=== PATIENT | female | born 1950 | race Caucasian/White ===

== ENCOUNTER 2023-03-03 09:57 | Outpatient (OUT) | payer MEDICARE, SELFPAY ==
[2023-03-03 11:14] LABS: Basophils Percent Auto 0.3 % (0.2-2.0); Eosinophils Absolute Auto 0.1 10^3/uL (0.0-0.7); Eosinophils Percent Auto 1.2 % (0.9-7.0); Hematocrit 35.1 % (36.0-48.0); Hemoglobin 10.9 g/dL (12.0-16.0); Immature Granulocytes Abs Auto 0.04 10^3/uL (0.00-0.03); Immature Granulocytes Pct Auto 0.5 % (0.0-0.5); Lymphocytes Absolute Auto 1.9 10^3/uL (1.2-3.8); Lymphocytes Percent Auto 24.9 % (20.5-60.0); Mean Corpuscular HGB Conc 31.1 g/dL (29.9-35.2); Mean Corpuscular Hemoglobin 27.8 pg (26.7-34.0); Mean Corpuscular Volume 89.5 fL (81.0-99.0); Mean Platelet Volume 11.4 fL (9.5-13.5); Monocytes Absolute Auto 0.5 10^3/uL (0.3-0.8); Monocytes Percent Auto 6.5 % (1.7-12.0); Neutrophils Absolute Auto 5.1 10^3/uL (1.4-6.5); Neutrophils Percent Auto 66.6 % (43.0-75.0); Platelet Count 178 10^3/uL (150-450); Red Blood Count 3.92 10^6/uL (4.20-5.40); Red Cell Distribution Width 14.8 % (11.0-15.0); White Blood Count 7.7 10^3/uL (4.0-11.0)
[2023-03-03 12:05] LABS: Alanine Aminotransferase 24 U/L (14-59); Albumin Globulin Ratio 0.9; Albumin Level 3.5 g/dL (3.4-5.0); Alkaline Phosphatase 76 U/L (46-116); Anion Gap 14.3; Aspartate Amino Transferase 22 U/L (15-37); BUN Creatinine Ratio 35.2; Bilirubin Total 0.2 mg/dL (0.2-1.0); Calcium 9.7 mg/dL (8.5-10.1); Carbon Dioxide 26.4 mmol/L (21.0-32.0); Chloride 107 mmol/L (98-107); Chol HDL Ratio 3.3; Cholesterol 97 mg/dL (<=200); Estimated GFR (African America >60 (>=60); Estimated GFR (Non-African Ame >60 (>=60); Globulin 4.1 g/dL; Glucose 118 mg/dL (74-106); HDL Cholesterol 29 mg/dL (40-60); Magnesium 1.9 mg/dL (1.8-2.4); Potassium 3.7 mmol/L (3.5-5.1); Sodium 144 mmol/L (136-145); Thyroid Stimulating Hormone 0.867 uIU/mL (0.358-3.740); Total Protein 7.6 g/dL (6.4-8.2); Triglycerides 133 mg/dL (<=150); VLDL CHOLESTEROL 26.6 mg/dL
--- NOTE | 2023-03-03 15:26 | ECG_ITS ---
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
== END 2023-03-03 09:58 | disposition home or self-care (01) ==
LOC: CARD 10:06
PROVIDERS: PCP Family Medicine
DX: R94.31 Abnormal electrocardiogram [ECG] [EKG] (principal); I48.91 Unspecified atrial fibrillation; I10 Essential (primary) hypertension; D64.9 Anemia, unspecified; R07.9 Chest pain, unspecified
CPT/HCPCS: 36415; 80053; 80061; 83735; 84443; 85025; 93005

== ENCOUNTER 2023-06-01 15:15 | Observation (INO) | payer MEDICARE, SELFPAY ==
[2023-06-01] VITALS (24 sets, daily range): BP systolic 118–146; BP diastolic 71–83; PULSE 90–118; RESP 17–39; TEMP 36.8; O2SAT 93–99; BMI 43.0; BMI 42.9
--- NOTE | 2023-06-01 15:35 | XR_ITS ---
The [address] [address] Patient Name: PATRICIA RONELAS MRN: [id number] date: 1950 Sex: F Assigned Patient Location: ER Current Patient Location: ED.MAIN Accession/Order Number: [id number] Exam Date: 06/01/2023 15:48 Report Date: 06/01/2023 16:22 At the request of: MACARIO ROJAS Procedure: XR chest 1V EXAM: XR chest 1V TECHNIQUE: Single AP view chest HISTORY: SOB COMPARISON: 09/05/2022 FINDINGS: The heart is enlarged. Diffuse bilateral increased interstitial markings suggesting edema. No acute osseous abnormality. Evaluation limited by patient rotation. XR/XR chest 1V IMPRESSION: Diffuse increased interstitial markings suggesting likely edema. Atypical infectious process is possible. Electronically authenticated by: VERONA GILMORE Date: 06/01/2023 16:22
--- NOTE | 2023-06-01 15:35 | ECG_ITS ---
The 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
--- NOTE | 2023-06-01 15:37 | ED_ITS ---
HPI - SOB/Dyspnea General Chief Complaint: Shortness of Breath/Dyspnea Stated Complaint: SOB Time Seen by Provider: 06/01/23 15:21 Source: patient Mode of arrival: ambulance Limitations: no limitations History of Present Illness HPI Narrative: 73-year-old female presents for shortness breath. She states it started early this morning. She hasn't had a fever or productive cough. Paramedics gave her an aerosol treatment and she felt a lot better. No vomiting or diarrhea and she doesn't complain to me of any chest pain or back pain. Symptom was continuous but now it's much better. Related Data Home Medications Medication Instructions Recorded Confirmed albuterol sulfate 90 mcg/actuation inhalation 06/01/23 aerosol inhaler allopurinol 100 mg tablet mg 06/01/23 amiodarone 200 mg tablet mg 06/01/23 apixaban 5 mg tablet (Eliquis) mg 06/01/23 atorvastatin 10 mg tablet mg 06/01/23 bupropion HCl 150 mg tablet,12 hr mg PO 06/01/23 sustained-release diltiazem HCl 120 mg mg PO 06/01/23 capsule,extended release 24 hr furosemide 20 mg tablet mg 06/01/23 gemfibrozil 600 mg tablet mg 06/01/23 isosorbide mononitrate 30 mg mg PO 06/01/23 tablet,extended release 24 hr levothyroxine 75 mcg tablet mcg 06/01/23 metformin 1,000 mg tablet mg 06/01/23 metoprolol tartrate 50 mg tablet mg 06/01/23 Allergies Allergy/AdvReac Type Severity Reaction Status Date / Time Penicillins Allergy Intermediate Verified 06/01/23 15:21 Sulfa (Sulfonamide AdvReac Intermediate Verified 06/01/23 15:21 Antibiotics) Review of Systems ROS Narrative A ten point review of systems is negative except as noted above. PFSH PFSH Social History Smoking status: Never smoker Exam Narrative Exam Narrative: Nurses note and vital signs reviewed and patient is not hypoxic. General: The patient appears well and in no apparent distress. Patient is resting comfortably on cart. Skin: Warm, dry, no pallor noted. There is no rash noted. Head: Normocephalic, atraumatic Eye: Normal conjunctiva, no drainage Ears, Nose, Mouth, and Throat: oral mucosa is moist. Nares patent. Cardiovascular: irregularly irregular Respiratory: she is moving air well. She has a few rhonchi. No rales detected. Back: non-tender GI: no tenderness to palpation, no masses appreciated. No rebound, guarding, or rigidity noted. Musculoskeletal: The patient has no evidence of calf tenderness, no pitting edema, symmetrical pulses noted bilaterally Neurological: A&O, normal speech Psychiatric: Cooperative Constitutional Vital Signs, click to edit/add: Last Vital Signs Temp 98.2 F 06/01/23 15:22 Pulse 100 H 06/01/23 15:33 Resp 26 H 06/01/23 15:22 BP 146/71 H 06/01/23 15:22 Pulse Ox 96 06/01/23 15:33 O2 Del Method Nasal Cannula 06/01/23 15:22 O2 Flow Rate 2 06/01/23 15:22 Course Vital Signs Vital signs: Vital Signs Temperature 98.2 F 06/01/23 15:22 Pulse Rate 97 H 06/01/23 15:22 Respiratory Rate 26 H 06/01/23 15:22 Blood Pressure 146/71 H 06/01/23 15:22 Pulse Oximetry 96 06/01/23 15:22 Oxygen Delivery Method Nasal Cannula 06/01/23 15:22 Oxygen Delivery Flow Rate 2 06/01/23 15:22 Temperature 98.2 F 06/01/23 15:22 Pulse Rate 100 H 06/01/23 15:33 Respiratory Rate 26 H 06/01/23 15:22 Blood Pressure 146/71 H 06/01/23 15:22 Pulse Oximetry 96 06/01/23 15:33 Oxygen Delivery Method Nasal Cannula 06/01/23 15:22 Oxygen Delivery Flow Rate 2 06/01/23 15:22 MDM - SOB/Dyspnea MDM Narrative Medical decision making narrative: . Edema is identified. She also has an elevated BNP. Troponin normal. She was given IV Lasix and is feeling improved. She is being admitted for further care. Differential Diagnosis Differential diagnosis: Likely acute exacerbation of chronic obstructive airways disease, congestive heart failure, community acquired pneumonia and other (pulmonary edema) Lab Data Attestation: I reviewed the patient's lab results. Labs: Lab Results 06/01/23 Range/Units 15:43 WBC 9.8 (4.0-11.0) 10^3/uL RBC 3.93 L (4.20-5.40) 10^6/uL Hgb 10.9 L (12.0-16.0) g/dL Hct 35.7 L (36.0-48.0) % MCV 90.8 (81.0-99.0) fL MCH 27.7 (26.7-34.0) pg MCHC 30.5 (29.9-35.2) g/dL RDW 15.1 H (11.0-15.0) % Plt Count 184 (150-450) 10^3/uL MPV 12.4 (9.5-13.5) fL Neut % (Auto) 81.2 H (43.0-75.0) % Lymph % (Auto) 12.9 L (20.5-60.0) % [place] % (Auto) 4.6 (1.7-12.0) % Eos % (Auto) 0.5 L (0.9-7.0) % Baso % (Auto) 0.3 (0.2-2.0) % Neut # (Auto) 8.0 H (1.4-6.5) 10^3/uL Lymph # (Auto) 1.3 (1.2-3.8) 10^3/uL [place] # (Auto) 0.5 (0.3-0.8) 10^3/uL Eos # (Auto) 0.1 (0.0-0.7) 10^3/uL Baso # (Auto) 0.0 (0.0-0.1) 10^3/uL Abs Immat Gran (auto) 0.05 H (0.00-0.03) 10^3/uL Imm/Tot Granulo (auto) 0.5 (0.0-0.5) % Sodium 141 (136-145) mmol/L Potassium 4.1 (3.5-5.1) mmol/L Chloride 104 (98-107) mmol/L Carbon Dioxide 30.3 (21.0-32.0) mmol/L Anion Gap 10.8 BUN 20.0 H (7.0-18.0) mg/dL Creatinine 0.88 (0.55-1.02) mg/dL Est GFR ( Amer) >60 (>=60) Est GFR (Non-Af Amer) >60 (>=60) BUN/Creatinine Ratio 22.7 Glucose 142 H (74-106) mg/dL Calcium 9.9 (8.5-10.1) mg/dL Troponin I High Sens 11.3 (4.0-51.3) pg/mL NT-Pro-B Natriuret Pep 2382.0 H* (<=900.0) pg/mL Imaging Data Chest x-ray: Radiologist's impression: Procedure: XR chest 1V EXAM: XR chest 1V TECHNIQUE: Single AP view chest HISTORY: SOB COMPARISON: 09/05/2022 FINDINGS: The heart is enlarged. Diffuse bilateral increased interstitial markings suggesting edema. No acute osseous abnormality. Evaluation limited by patient rotation. IMPRESSION: Diffuse increased interstitial markings suggesting likely edema. Atypical infectious process is possible. Electronically authenticated by: VERONA GILMORE Date: 06/01/2023 16:22 Critical Care Time Critical Care Time Critical Care Time: Yes Total Critical Care Time: 35 Attestation: Due to the high probability of sudden and clinically significant deterioration in the patient's condition he/she required the highest level of my preparedness to intervene urgently I provided critical care time including documentation time, medication orders and management, reevaluation, vital sign assessment, ordering and reviewing of lab tests, ordering and reviewing of x-ray studies, and admission orders. Aggregate critical care time is 35 minutes including only time during which I was engaged in work directly related to his/her care and did not include time spent treating other patients simultaneously. Discharge Plan Discharge Chief Complaint: Shortness of Breath/Dyspnea Clinical Impression: Pulmonary edema with congestive heart failure Patient Disposition: Admitted As Inpatient Time of Disposition Decision: 16:57 Condition: Fair
[2023-06-01 15:50] LABS: Basophils Percent Auto 0.3 % (0.2-2.0); Eosinophils Absolute Auto 0.1 10^3/uL (0.0-0.7); Eosinophils Percent Auto 0.5 % (0.9-7.0); Hematocrit 35.7 % (36.0-48.0); Hemoglobin 10.9 g/dL (12.0-16.0); Immature Granulocytes Abs Auto 0.05 10^3/uL (0.00-0.03); Immature Granulocytes Pct Auto 0.5 % (0.0-0.5); Lymphocytes Absolute Auto 1.3 10^3/uL (1.2-3.8); Lymphocytes Percent Auto 12.9 % (20.5-60.0); Mean Corpuscular HGB Conc 30.5 g/dL (29.9-35.2); Mean Corpuscular Hemoglobin 27.7 pg (26.7-34.0); Mean Corpuscular Volume 90.8 fL (81.0-99.0); Mean Platelet Volume 12.4 fL (9.5-13.5); Monocytes Absolute Auto 0.5 10^3/uL (0.3-0.8); Monocytes Percent Auto 4.6 % (1.7-12.0); Neutrophils Percent Auto 81.2 % (43.0-75.0); Platelet Count 184 10^3/uL (150-450); Red Blood Count 3.93 10^6/uL (4.20-5.40); Red Cell Distribution Width 15.1 % (11.0-15.0); White Blood Count 9.8 10^3/uL (4.0-11.0)
[2023-06-01 16:07] LABS: Anion Gap 10.8; BUN Creatinine Ratio 22.7; Calcium 9.9 mg/dL (8.5-10.1); Carbon Dioxide 30.3 mmol/L (21.0-32.0); Chloride 104 mmol/L (98-107); Estimated GFR (African America >60 (>=60); Estimated GFR (Non-African Ame >60 (>=60); Glucose 142 mg/dL (74-106); Potassium 4.1 mmol/L (3.5-5.1); Sodium 141 mmol/L (136-145); Troponin I High Sensitivity 11.3 pg/mL (4.0-51.3)
[2023-06-01] MEDS: FUROSEMIDE 40 MG/4 ML VIAL IVP (17:02)
--- NOTE | 2023-06-01 17:23 | CA_ITS ---
Patient: PATRICIA ORNELAS Exam Date: 06/02/2023 : 1950 Gender:F Ordering : GER RODRIGUEZ . Admission #: [id number] Family : Order #: [id number] CLICK HERE TO VIEW EXAM ECHOCARDIOGRAM REPORT PROCEDURE: CA ECHO DOPPLER COMPLETE INDICATIONS: acute chf exacerbation COMPARISON: None. DESCRIPTION: COMPLETE ECHOCARDIOGRAM Real-time transthoracic echocardiography with 2D, M-mode, spectral and color flow Doppler performed. QUALITY: Technical quality was good. LEFT VENTRICLE: Normal chamber size. Normal left ventricular wall thickness. LV EF: Global left ventricular systolic function is difficult to assess but appears preserved; visually estimated ejection fraction is 55 to 60%. Unable to assess regional wall motion abnormalities; consider contrast study for better delineation of endocardial borders. DIASTOLIC: Not adequately assessed due to heart rhythm. ATRIAL SEPTUM: Inadequately seen. LEFT ATRIUM: Mild dilatation. RIGHT ATRIUM: Mild dilatation. RIGHT VENTRICLE: Normal chamber size. Normal right ventricular systolic function. TRICUSPID VALVE: Normal mobility and thickness. Mild regurgitation. No evidence of pulmonary hypertension. RVSP 28mmHg. MITRAL VALVE: Normal mobility and thickness. No evidence of mitral valve stenosis. There is no mitral annular calcification. Trivial mitral regurgitation. AORTIC VALVE: Normal trileaflet appearance. Mildly calcified aortic valve. Mildly diminished mobility. No evidence of aortic valve stenosis. Trivial aortic regurgitation. AORTIC ROOT: Normal diameter and appearance. PULMONIC VALVE: Normal thickness and mobility. No stenosis. Trivial regurgitation. PERICARDIUM: No evidence of pericardial effusion. IVC: Collapses with inspirations. Normal size. CONCLUSION: 1. Global left ventricular systolic function is difficult to assess but appears preserved; visually estimated ejection fraction is 55 to 60% 2. Biatrial enlargement 3. The right ventricle is normal in size and systolic function 4. Mild tricuspid regurgitation Adult Echocardiography Procedure Report Left Ventricle LVEDD (3.7 - 5.6 cm): 4.84 cm LVESD (2.2 - 4.0 cm): 3.44 cm LVIVS thickness (0.6 - 1.2 cm): 0.93 cm LVPW thickness (0.5 - 1.0 cm): 1.01 cm e': 0.08 m/s E - e': 11.57 LVOT Max Gradient: 3.96 mm[Hg] LVOT Area (cm2): 1.00 m/s Peak Velocity (LVOT): 1.00 m/s Mean Velocity (LVOT): 0.62 m/s LVOT Diameter 2.17 cm Left Ventricular Ejection Fraction: 49.85 % Left Atrium LA Volume Index (2D A2C): 43.18 ml/m2 Left Atrium Systolic Dimension: 4.71 cm Mitral Valve Mitral Valve E-Wave Peak Velocity: 0.95 m/s Right Ventricle RV Internal Diastolic Dimension: 3.33 cm Aorta AO Root Diam: 2.82 cm Ascending Ao Diam: 3.01 cm Aortic Valve AoV Area (Peak Mao): 1.83 cm2, 1.83 cm2 AoV Area (VTI): 1.72 cm2, 1.72 cm2 Peak Velocity(Antegrade Flow): 2.02 m/s Peak Gradient(Antegrade Flow): 16.29 mm[Hg] Mean Velocity(Antegrade Flow): 1.43 m/s Mean Gradient(Antegrade Flow): 9.30 mm[Hg] Velocity Time Integral: 40.53 cm Tricuspid Valve Peak Velocity (Regurgitant Flow): 2.20 m/s, 1.60 m/s, 2.73 m/s, 2.55 m/s Pulmonic Valve Peak Velocity: 0.96 m/s Peak Gradient: 3.06 mm[Hg], 4.44 mm[Hg] Right Atrium Right Atrium Systolic Pressure: 101.06 ml, 101.06 ml Dictated by: Mar Gregory M.D. on 06/02/2023 at 16:34 Approved by: Mar Gregory M.D. on 06/02/2023 at 16:37
--- NOTE | 2023-06-01 20:02 | PC.NURSE ---
lungs auscultation clear but diminished in bases
[2023-06-01 22:56] LABS: Glucometer 115 mg/dL (74-106)
[2023-06-02] VITALS (18 sets, daily range): BP systolic 117–146; BP diastolic 67–88; PULSE 79–118; RESP 18–20; TEMP 36.6–36.7; O2SAT 93–97
--- NOTE | 2023-06-02 03:32 | P.PN_ITS ---
Progress Note: Subjective Subjective Interval history: Patient is a 73-year-old female Medical History: Of CHF, HLD, A-fib, DM type II, hypothyroid, and gout who presents with complaint of dyspnea. Patient reports that her symptoms began early Friday morning acutely. EMS was called and patient was treated with nebs in route to the ED. She denies any leg swelling nor any recent weight gain to her knowledge. She reports weighing herself every 2 to 3 days, without any recent change. She does report being compliant with all her medications including Lasix. Patient follows with aquatic biologist in [place] at [facility] with last office visit in March and she denies any changes to her cardiac regimen at that time. She denies any chest pain, palpitations, or dizziness. Denies any fever chills, no cough, denies any nausea vomiting or any diarrhea. In the ED, vitals HR of 115, O2 sat currently 93% on 2 L. Labs significant for hemoglobin 10.9, glucose 142, proBNP 2382 and rest of labs within normal limits including negative troponin and normal WBC count. EKG A- fib with RVR with rate of 109. Chest x-ray with diffuse increased interstitial markings consistent with edema, unable to rule out atypical infection. Patient was treated in the ED with IV Lasix with improvement of her breathing and she is being admitted to the hospitalist service for further management. Exam Constitutional Vital Signs, click to edit/add: Last Vital Signs Temp 98.2 F 06/01/23 22:37 Pulse 118 H 06/02/23 02:14 Resp 20 06/01/23 22:37 BP 118/83 06/01/23 22:37 Pulse Ox 93 L 06/01/23 22:37 O2 Del Method Nasal Cannula 06/01/23 22:37 O2 Flow Rate 2 06/01/23 22:37 Documenting provider has reviewed patient's vital signs: yes Common normals: no apparent distress and oriented x3 General appearance: cooperative, comfortable and well developed Nutritional appearance: obese Orientation/consciousness: Yes awake, Yes oriented to person, Yes oriented to place and Yes oriented to time HENMT Common normals: normocephalic and head/scalp atraumatic Head and scalp: normal to inspection Eye Common normals: PERRL and EOMs intact bilaterally General eye: normal appearance of both eyes Sclera: sclerae normal Respiratory Common normals: normal respiratory effort and no use of accessory muscles Effort & inspection: able to speak in complete sentences Auscultation: diminished lung sounds Cardio Rate: tachycardic Rhythm: abnormal rhythm irregularly irregular Heart sounds: S1 normal and S2 normal GI Common normals: Normal to inspection, nondistended, normoactive bowel sounds present Auscultation: normoactive bowel sounds Palpation: soft Extremity Common normals: normal to inspection General: normal exam except as noted Other: Trace bilateral lower extremity edema Neuro Common normals: oriented x3 and CN's II-XII intact bilaterally Sensorium/orientation: awake and alert Psych Common normals: mental status grossly normal Appearance: grossly normal Attitude: calm and engaged Activity/motor behavior: appropriate eye contact Speech: normal speech Thought process: normal thought process Insight: insight good Judgement: judgment good Progress Note: Objective Labs Labs: Short CBC 06/01/23 Range/Units 15:43 WBC 9.8 (4.0-11.0) 10^3/uL Hgb 10.9 L (12.0-16.0) g/dL Hct 35.7 L (36.0-48.0) % Plt Count 184 (150-450) 10^3/uL BMP 06/01/23 15:43 Sodium 141 Potassium 4.1 Chloride 104 Carbon Dioxide 30.3 BUN 20.0 H Creatinine 0.88 Glucose 142 H Calcium 9.9 ECG Attestation: ?I have reviewed the pertinent ECG results. Imaging Chest x-ray: My impression: pulm edema Progress Note: A&P Assessment and Plan (1) Diabetes mellitus: (2) Pulmonary edema with congestive heart failure: Plan Acute CHF exacerbation: Type unknown, unable to locate previous echo. BNP on admission 2382 and CXR with pulmonary edema. Lasix 40 mg IV daily continued for now. Strict I's/O, daily weight, 1500 cc FR. continue cardiac home meds HLD: Continue Lipitor Chronic A-fib, with mild RVR: Continue home regimen amiodarone, Cardizem, metoprolol. Continue Eliquis DM type II: Continue SSI. Holding metformin Hypothyroid: Continue levothyroxine Gout: Continue allopurinol Depression: Continue bupropion Telemedicine Attestation Telemedicine Attestation I conducted this encounter from [MD] via secure live, [id number] video conference with the patient, located at [facility] with [ZEB Olivares]. Prior to the interview, the risks and benefits of telemedicine were discussed with the patient and verbal consent was obtained.
[2023-06-02 04:58] LABS: Basophils Percent Auto 0.3 % (0.2-2.0); Eosinophils Absolute Auto 0.1 10^3/uL (0.0-0.7); Eosinophils Percent Auto 0.5 % (0.9-7.0); Hematocrit 31.9 % (36.0-48.0); Hemoglobin 9.7 g/dL (12.0-16.0); Immature Granulocytes Abs Auto 0.04 10^3/uL (0.00-0.03); Immature Granulocytes Pct Auto 0.4 % (0.0-0.5); Lymphocytes Percent Auto 19.5 % (20.5-60.0); Mean Corpuscular HGB Conc 30.4 g/dL (29.9-35.2); Mean Corpuscular Hemoglobin 27.2 pg (26.7-34.0); Mean Corpuscular Volume 89.4 fL (81.0-99.0); Mean Platelet Volume 13.2 fL (9.5-13.5); Monocytes Absolute Auto 0.7 10^3/uL (0.3-0.8); Monocytes Percent Auto 7.1 % (1.7-12.0); Neutrophils Absolute Auto 7.3 10^3/uL (1.4-6.5); Neutrophils Percent Auto 72.2 % (43.0-75.0); Platelet Count 171 10^3/uL (150-450); Red Blood Count 3.57 10^6/uL (4.20-5.40); Red Cell Distribution Width 15.2 % (11.0-15.0); White Blood Count 10.1 10^3/uL (4.0-11.0)
[2023-06-02 05:09] LABS: Estimated Average Glucose 131 mg/dL; Glycohemoglobin A1C 6.2 % (4.5-6.2)
[2023-06-02 05:25] LABS: Alanine Aminotransferase 22 U/L (14-59); Albumin Globulin Ratio 0.9; Albumin Level 3.3 g/dL (3.4-5.0); Alkaline Phosphatase 72 U/L (46-116); Aspartate Amino Transferase 20 U/L (15-37); BUN Creatinine Ratio 25.8; Bilirubin Total 0.6 mg/dL (0.2-1.0); Calcium 9.2 mg/dL (8.5-10.1); Carbon Dioxide 29.5 mmol/L (21.0-32.0); Chloride 102 mmol/L (98-107); Estimated GFR (African America >60 (>=60); Estimated GFR (Non-African Ame 59 (>=60); Globulin 3.8 g/dL; Glucose 111 mg/dL (74-106); Potassium 3.5 mmol/L (3.5-5.1); Sodium 141 mmol/L (136-145); Thyroid Stimulating Hormone 0.224 uIU/mL (0.358-3.740); Total Protein 7.1 g/dL (6.4-8.2)
[2023-06-02] MEDS: LEVOTHYROXINE SODIUM 75 MCG TABLET PO (06:28)
[2023-06-02 07:17] LABS: Glucometer 129 mg/dL (74-106)
--- NOTE | 2023-06-02 08:21 | PM.HP ---
H&P: HPI History of Present Illness Chief complaint: SOB Narrative: 73-year-old female with past medical history of CHF unspecified type, HLD, A-fib, DM type II, hypothyroid, and gout who presents with complaint of dyspnea.she reports that her symptoms began early Friday morning and became short of breath. She denies any lower extremity leg swelling or weight gain. She follows regularly with health and safety tech in [facility]. Last visit was in March with no changes to medications. She reports compliance with meds. In the ER patient had elevated proBNP 2382 with Chest X-ray showing pulmonary edema. She was given IV lasix 40mg in the ER and admitted to hospital for further work up. She still notes shortness of breath on exam this morning. Review of Systems ROS Narrative ROS: a complete review of systems were reviewed with patient and are positive as below or listed in History of Chief Complaint. General: no fever, chills, night sweats Head: no headache, trauma, visual changes, nausea or vomiting Skin: no reported rashes, itching or sores Eyes: no blurriness of vision Ears: no reported hearing loss, vertigo, earache, or tinnitus Throat: no sore throat, hoarseness, swelling of neck, or tongue pain Heart: no chest pain Lungs:shortness of breath no cough GI: no diarrhea or vomiting/nausea Urinary: no urinary urgency, frequency or pain Neuro: no numbness or tingling HEM: no bleeding issues or bruising ENDO: no thyroid problems Psych: no anxiety or depression [facility] Medical History (Updated 06/02/23 @ 11:47 by Fatou Lainez DO) Family History Other Family history of CHF (congestive heart failure) Family history of diabetes mellitus Family history of hypertension Family history of myocardial infarction Family history of stroke Social History Within the past year, how often did you have six or more drinks on one occasion: never Smoking status: Never smoker Do you think of yourself as: straight/heterosexual Gender Identity: female Meds Home Medications and Allergies Home Medications Medication Instructions Recorded Confirmed Type albuterol sulfate 90 mcg/actuation 2 inh inhalation Q6H PRN shortness 06/01/23 06/01/23 History aerosol inhaler of breath or wheezing allopurinol 100 mg tablet 100 mg PO DAILY 06/01/23 06/01/23 History apixaban 5 mg tablet (Eliquis) 5 mg PO BID 06/01/23 06/01/23 History atorvastatin 10 mg tablet 10 mg PO DAILY 06/01/23 06/01/23 History bupropion HCl 150 mg tablet,12 hr 150 mg PO Q12H 06/01/23 06/01/23 History sustained-release diltiazem HCl 120 mg 120 mg PO Q12H 06/01/23 06/01/23 History capsule,extended release 24 hr furosemide 20 mg tablet 20 mg PO DAILY 06/01/23 06/01/23 History gemfibrozil 600 mg tablet 600 mg PO BID 06/01/23 06/01/23 History isosorbide mononitrate 30 mg 30 mg PO DAILY 06/01/23 06/01/23 History tablet,extended release 24 hr liothyronine 5 mcg tablet 5 mcg PO BID 06/01/23 06/02/23 History metformin 1,000 mg tablet 1,000 mg PO BID 06/01/23 06/01/23 History metoprolol tartrate 50 mg tablet 50 mg PO Q12H 06/01/23 06/01/23 History levothyroxine 300 mcg tablet 150 mcg PO DAILY 06/02/23 06/02/23 History (Unithroid) Allergies Allergy/AdvReac Type Severity Reaction Status Date / Time Penicillins Allergy Intermediate Verified 06/01/23 15:21 Sulfa (Sulfonamide AdvReac Intermediate Verified 06/01/23 15:21 Antibiotics) Exam Narrative Exam Narrative: General: Patient is alert, and oriented to person, place and time with normal affect, proper hygiene Skin: no visible rashes, or ulcers Head: atraumatic, acephalic Eyes: PERRLA, no nystagmus present, conjunctiva clear, no scleral icterus Ears: diminished gross auditory acuity Nose: symmetric, no discharge, no maxillary or frontal sinus tenderness Neck: no masses palpated, normal thyroid, no JVD or audible carotid bruits Heart: Normal rate and rhythm, no murmurs/rubs/gallops Lungs: crackles in all lung balderas Abdomen: Normal audible bowel sounds, no distension, No palpable masses, no organomegaly, no rebound/guarding/ or rigidity Musculoskeletal: no swelling bilateral lower extremities Neuro: CN II-X grossly intact, normal sensation upper and lower extremities Constitutional Vital Signs, click to edit/add: Last Vital Signs Temp 97.9 F 06/02/23 05:30 Pulse 98 H 06/02/23 06:04 Resp 20 06/02/23 05:30 BP 143/88 H 06/02/23 05:30 Pulse Ox 96 06/02/23 05:30 O2 Del Method Nasal Cannula 06/02/23 05:30 O2 Flow Rate 2 06/02/23 05:30 Results Labs Labs: Short CBC 06/01/23 06/02/23 Range/Units 15:43 04:15 WBC 9.8 10.1 (4.0-11.0) 10^3/uL Hgb 10.9 L 9.7 L (12.0-16.0) g/dL Hct 35.7 L 31.9 L (36.0-48.0) % Plt Count 184 171 (150-450) 10^3/uL BMP 06/01/23 06/02/23 15:43 04:15 Sodium 141 141 Potassium 4.1 3.5 Chloride 104 102 Carbon Dioxide 30.3 29.5 BUN 20.0 H 24.0 H Creatinine 0.88 0.93 Glucose 142 H 111 H Calcium 9.9 9.2 Liver Function 06/02/23 Range/Units 04:15 Total Bilirubin 0.6 (0.2-1.0) mg/dL AST 20 (15-37) U/L ALT 22 (14-59) U/L Alkaline Phosphatase 72 (46-116) U/L Albumin 3.3 L (3.4-5.0) g/dL Assessment and Plan Assessment and Plan (1) Heart failure with acute decompensation, type unknown: Assessment and Plan: Type unknown, unable to locate previous echo. BNP on admission 2382 and CXR with pulmonary edema, Trop's normal. Lasix 40 mg IV daily continued for now. Strict I's/O, daily weight, 1500 cc fluid restriction. continue home meds (2) Pulmonary edema with congestive heart failure: Assessment and Plan: diuresis and echo (3) Chronic a-fib: Assessment and Plan: Continue home regimen amiodarone, Cardizem, metoprolol, Eliquis (4) Type 2 diabetes mellitus: Assessment and Plan: ha1c 6.2, SSI for now with glucose checks qachs, hold metformin (5) Hypothyroidism (acquired): Assessment and Plan: TSH slightly low, no changes to levothyroxine (6) Gout: Assessment and Plan: continue allopurinol (7) Depression: Assessment and Plan: continue buproprion Plan patient is a full code continue eliquis for dvt prophylaxis patient is in observation status and not expected to stay more than 2 midnights.
[2023-06-02] MEDS: DILTIAZEM HCL 120 MG CAP.ER.24H PO ×2 (08:46→20:07)
[2023-06-02] MEDS: ALLOPURINOL 100 MG TABLET PO (08:46)
[2023-06-02] MEDS: METOPROLOL TARTRATE 50 MG TABLET PO ×2 (08:46→20:07)
[2023-06-02] MEDS: ISOSORBIDE MONONITRATE 30 MG TAB.ER.24H PO (08:46)
[2023-06-02] MEDS: APIXABAN 5 MG TABLET PO ×2 (08:46→20:07)
[2023-06-02] MEDS: FUROSEMIDE 40 MG/4 ML VIAL IVP ×2 (08:46→18:08)
[2023-06-02] MEDS: BUPROPION HCL 150 MG SR TABLET 12H PO ×2 (08:47→20:07)
[2023-06-02] MEDS: ATORVASTATIN CALCIUM 10 MG TABLET PO (08:47)
[2023-06-02] MEDS: GEMFIBROZIL 600 MG TABLET PO ×2 (08:47→20:07)
--- NOTE | 2023-06-02 10:45 | CM.NOTE ---
Rounds made with Dr. Lainez, no discharge for pt today. PT and OT will evaluate pt today and continue diuresis.
[2023-06-02 11:07] LABS: Glucometer 145 mg/dL (74-106)
--- NOTE | 2023-06-02 11:28 | CM.NOTE ---
Medicare Outpatient Observation Notice discussed with pt, pt verbalizes understanding and signs paper. Original given to pt and copy placed on pt's chart.
--- NOTE | 2023-06-02 13:30 | SWNOTE1 ---
Pt was eating lunch, SW to complete assessment later today.
--- NOTE | 2023-06-02 14:13 | SWNOTE1 ---
SW met with pt to discuss dc needs. Pt lives at home alone. She did not voice any family, only friends who can help her as needed. Pt does not use any DME at home when getting around. Pt does still drive, cook, clean, etc. Pt stated she has to and she has to stay active. 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 Pt does not have any home health coming in at this time. At this time pt has no concerns about discharge. Pt does have 13 steps to go up at home, she voiced she takes her time and counts the steps and has a railing to use. SW to follow as needed.
[2023-06-02 15:06] LABS: SARS-CoV-2 Ag reflex to NAA Negative (NEGATIVE)
[2023-06-02 16:02] LABS: Glucometer 128 mg/dL (74-106)
[2023-06-02 16:39] LABS: SARS-CoV-2 NAA NOT DETECTED (NOT DETECTE)
[2023-06-02] MEDS: LIOTHYRONINE SODIUM 5 MCG TABLET PO (20:07)
[2023-06-02 20:53] LABS: Glucometer 140 mg/dL (74-106)
[2023-06-03] VITALS (8 sets, daily range): BP systolic 127; BP diastolic 67; PULSE 55–96; RESP 20; TEMP 36.8; O2SAT 94–95
[2023-06-03 05:21] LABS: Basophils Percent Auto 0.4 % (0.2-2.0); Eosinophils Absolute Auto 0.1 10^3/uL (0.0-0.7); Eosinophils Percent Auto 1.5 % (0.9-7.0); Hematocrit 34.4 % (36.0-48.0); Hemoglobin 10.3 g/dL (12.0-16.0); Immature Granulocytes Abs Auto 0.05 10^3/uL (0.00-0.03); Immature Granulocytes Pct Auto 0.6 % (0.0-0.5); Lymphocytes Absolute Auto 2.1 10^3/uL (1.2-3.8); Lymphocytes Percent Auto 22.8 % (20.5-60.0); Mean Corpuscular HGB Conc 29.9 g/dL (29.9-35.2); Mean Corpuscular Volume 90.1 fL (81.0-99.0); Mean Platelet Volume 13.2 fL (9.5-13.5); Monocytes Absolute Auto 0.7 10^3/uL (0.3-0.8); Monocytes Percent Auto 7.7 % (1.7-12.0); Neutrophils Absolute Auto 6.1 10^3/uL (1.4-6.5); Platelet Count 184 10^3/uL (150-450); Red Blood Count 3.82 10^6/uL (4.20-5.40); Red Cell Distribution Width 15.3 % (11.0-15.0)
[2023-06-03] MEDS: LEVOTHYROXINE SODIUM 75 MCG TABLET 150 MCG PO (05:33)
[2023-06-03] MEDS: FUROSEMIDE 40 MG/4 ML VIAL IVP (05:33)
[2023-06-03 05:45] LABS: Alanine Aminotransferase 24 U/L (14-59); Albumin Globulin Ratio 0.8; Albumin Level 3.3 g/dL (3.4-5.0); Alkaline Phosphatase 70 U/L (46-116); Anion Gap 10.6; Aspartate Amino Transferase 30 U/L (15-37); Bilirubin Total 0.6 mg/dL (0.2-1.0); Calcium 9.3 mg/dL (8.5-10.1); Chloride 104 mmol/L (98-107); Estimated GFR (African America >60 (>=60); Estimated GFR (Non-African Ame 52 (>=60); Globulin 4.1 g/dL; Glucose 110 mg/dL (74-106); Potassium 3.6 mmol/L (3.5-5.1); Sodium 141 mmol/L (136-145); Total Protein 7.4 g/dL (6.4-8.2)
--- NOTE | 2023-06-03 08:32 | XR_ITS ---
The [address] [address] Patient Name: PATRICIA ORNELAS MRN: [id number] date: 1950 Sex: F Assigned Patient Location: [place] Current Patient Location: [place] Accession/Order Number: [id number] Exam Date: 06/03/2023 08:35 Report Date: 06/03/2023 08:55 At the request of: GER RODRIGUEZ Procedure: XR chest 1V EXAM: XR chest 1V HISTORY: shortness of breath COMPARISON: 06/01/2023 TECHNIQUE: AP portable FINDINGS: LUNGS: No significant pulmonary parenchymal abnormalities. Low lung volumes VASCULATURE: No increased pulmonary vasculature. PLEURA: No pneumothorax, effusion, or pleural thickening. Elevated right hemidiaphragm CARDIAC: No cardiomegaly or cardiac silhouette abnormality. MEDIASTINUM: No visible mass or adenopathy. BONES: No fracture or visible bone lesion. OTHER: Negative. XR/XR chest 1V IMPRESSION: No acute cardiopulmonary process Electronically authenticated by: EDSON HERNANDEZ Date: 06/03/2023 08:55
[2023-06-03] MEDS: LIOTHYRONINE SODIUM 5 MCG TABLET PO (08:47)
[2023-06-03] MEDS: ISOSORBIDE MONONITRATE 30 MG TAB.ER.24H PO (08:48)
[2023-06-03] MEDS: DILTIAZEM HCL 120 MG CAP.ER.24H PO (08:48)
[2023-06-03] MEDS: ATORVASTATIN CALCIUM 10 MG TABLET PO (08:48)
[2023-06-03] MEDS: BUPROPION HCL 150 MG SR TABLET 12H PO (08:48)
[2023-06-03] MEDS: METOPROLOL TARTRATE 50 MG TABLET PO (08:48)
[2023-06-03] MEDS: APIXABAN 5 MG TABLET PO (08:48)
[2023-06-03] MEDS: ALLOPURINOL 100 MG TABLET PO (08:48)
[2023-06-03] MEDS: GEMFIBROZIL 600 MG TABLET PO (08:48)
[2023-06-03 11:27] LABS: Glucometer 137 mg/dL (74-106)
--- NOTE | 2023-06-03 13:24 | PM.DS1 ---
DS: Providers Provider Date of admission: 06/01/23 18:10 Primary care physician: AZRA LAGUNA Attending physician on admission: Lorraine Canseco Consults: 06/01/23 17:23 Consult to Cardiology Routine Consulting Provider: Hospitalist Reason for consultation: acute chf Has provider been notified: No Occupational Therapy Eval and Treat Routine Reason for consultation: weakness Has provider been notified: No Physical Therapy Eval and Treat Routine Reason for consultation: weakness Has provider been notified: No Attending physician on discharge: Fatou Lainez DS: Diagnosis Discharge Diagnosis (1) Heart failure with acute decompensation, type unknown: (2) Pulmonary edema with congestive heart failure: (3) Chronic a-fib: (4) Type 2 diabetes mellitus: (5) Hypothyroidism (acquired): (6) Gout: (7) Depression: DS: Summary Hospital Course Hospital Course: Patient with echocardiogram showing preserved ejection fraction, diastolic heart failure no acute changes. Pro BNP on admission was 2382 and on discharge is 1386. Patient has had approximately 4 L of fluid removed with Lasix 40 mg IV twice a day. Chest x-ray is negative for pulmonary edema. She is not requiring oxygen and symptomatically so she is improved. Will place on Lasix 40 mg by mouth daily ?5 days and then she is to resume her Lasix 20 mg by mouth daily. She has close follow-up with her capacity analyst and primary care physician. She will need a CMP and proBNP at the time her appointment. No other changes to her medications. Will be discharged home today in stable condition. Urged her to abide by a 1800 mL fluid restriction diet as well as low salt and sodium intake Status at Discharge Functional status at discharge: independent ambulation Time Spent with Patient Time attestation: Total time spent providing and/or coordinating discharge services: Time spent: greater than 30 minutes Exam Narrative Exam Narrative: General: Patient is alert, and oriented to person, place and time with normal affect, proper hygiene Neck: no masses palpated, normal thyroid, no JVD or audible carotid bruits Heart: Normal rate and rhythm, no murmurs/rubs/gallops Lungs: no audible wheezes, crackles and normal breath sounds all lung balderas Abdomen: Normal audible bowel sounds, no distension, No palpable masses, no organomegaly, no rebound/guarding/ or rigidity Musculoskeletal: muscle atrophy noted, ROM is limited due to being in hospital bed, no swelling bilateral lower extremities Neuro: CN II-X grossly intact, normal sensation upper and lower extremities Constitutional Vital Signs, click to edit/add: Last Vital Signs Temp 98.3 F 06/03/23 05:18 Pulse 95 H 06/03/23 11:55 Resp 20 06/03/23 05:18 BP 127/67 06/03/23 05:18 Pulse Ox 95 06/03/23 05:18 O2 Del Method Room Air 06/03/23 05:18 O2 Flow Rate 2 06/02/23 05:30 DS: Data Data Completed and Pending Labs on day of discharge: Labs from last 24 hours 06/03/23 06/03/23 06/03/23 11:26 08:52 04:24 WBC 9.0 RBC 3.82 L Hgb 10.3 L Hct 34.4 L MCV 90.1 MCH 27.0 MCHC 29.9 RDW 15.3 H Plt Count 184 MPV 13.2 Neut % (Auto) 67.0 Lymph % (Auto) 22.8 [place] % (Auto) 7.7 Eos % (Auto) 1.5 Baso % (Auto) 0.4 Neut # (Auto) 6.1 Lymph # (Auto) 2.1 [place] # (Auto) 0.7 Eos # (Auto) 0.1 Baso # (Auto) 0.0 Abs Immat Gran (auto) 0.05 H Imm/Tot Granulo (auto) 0.6 H Sodium 141 Potassium 3.6 Chloride 104 Carbon Dioxide 30.0 Anion Gap 10.6 BUN 26.0 H Creatinine 1.04 H Est GFR ( Amer) >60 Est GFR (Non-Af Amer) 52 L BUN/Creatinine Ratio 25.0 Glucose 110 H Calcium 9.3 Total Bilirubin 0.6 AST 30 ALT 24 Alkaline Phosphatase 70 NT-Pro-B Natriuret Pep 1386.0 H* Total Protein 7.4 Albumin 3.3 L Globulin 4.1 Albumin/Globulin Ratio 0.8 SARS-CoV-2 RNA (JAQUAN) SARS-CoV-2 Ag (CV2AG) POC Glucose 137 H 06/02/23 06/02/23 06/02/23 20:52 16:01 14:29 WBC RBC Hgb Hct MCV MCH MCHC RDW Plt Count MPV Neut % (Auto) Lymph % (Auto) [place] % (Auto) Eos % (Auto) Baso % (Auto) Neut # (Auto) Lymph # (Auto) [place] # (Auto) Eos # (Auto) Baso # (Auto) Abs Immat Gran (auto) Imm/Tot Granulo (auto) Sodium Potassium Chloride Carbon Dioxide Anion Gap BUN Creatinine Est GFR ( Amer) Est GFR (Non-Af Amer) BUN/Creatinine Ratio Glucose Calcium Total Bilirubin AST ALT Alkaline Phosphatase NT-Pro-B Natriuret Pep Total Protein Albumin Globulin Albumin/Globulin Ratio SARS-CoV-2 RNA (JAQUAN) Not detected SARS-CoV-2 Ag (CV2AG) Negative POC Glucose 140 H 128 H Discharge Plan Discharge Disposition: Home, Self-Care Condition: Fair Discharge Medications: New furosemide [Lasix] 40 mg tablet 40 mg PO DAILY 5 Days Qty: 5 0RF Continued bupropion HCl 150 mg tablet sustained-release 12 hr 150 mg PO Q12H atorvastatin 10 mg tablet 10 mg PO DAILY isosorbide mononitrate 30 mg tablet extended release 24 hr 30 mg PO DAILY allopurinol 100 mg tablet 100 mg PO DAILY gemfibrozil 600 mg tablet 600 mg PO BID metformin 1,000 mg tablet 1,000 mg PO BID metoprolol tartrate 50 mg tablet 50 mg PO Q12H diltiazem HCl 120 mg capsule,extended release 24hr 120 mg PO Q12H albuterol sulfate 90 mcg/actuation HFA aerosol inhaler 2 inh INHALATION Q6H PRN (Reason: shortness of breath or wheezing) Eliquis 5 mg tablet 5 mg PO BID liothyronine 5 mcg tablet 5 mcg PO BID levothyroxine [Unithroid] 300 mcg tablet 150 mcg PO DAILY Held furosemide 20 mg tablet 20 mg PO DAILY Hold Instructions: Resume on 06/08/23. [address] on 40mg Laxis PO daily for 5 more days then resume 20mg daily Activity: increase activity as tolerated Diet: low salt diet and other Diet Detail: fluid restriction of 1800mL Patient Instructions: Heart Failure (DC) Forms: Portal Instructions Follow Up Appointments: Follow up appt. with Dr. Laguna on Jun.12 @ 2:00pm Office #: [phone] Dr. Carter's office (cardio) will contact the patient after the doctor has reviewed her chart and set up an appt. Office #: [phone]
--- NOTE | 2023-06-03 13:31 | CM.NOTE ---
Rounds made with florence Mccauley to discharge to home. Pt will need to f/u with cardiology and family practice doctor.
--- NOTE | 2023-06-04 16:04 | CM.DCFOLLOWU ---
Person spoke with: patient How are you feeling? good How is your pain? no pain Did you understand your discharge instructions? yes Do you have any questions about your discharge instructions? no Were you given any prescriptions at discharge? yes Were you able to get your prescriptions filled? yes Do you understand how to take your medications as ordered? yes Do you have any questions about your follow up appointment and do you plan to keep your follow up appointment? no questions, yes follow up scheduled with Dr. Joy Is there anything else that you would like to discuss? Questions/Comments/Concerns/Other:
== END 2023-06-03 15:15 | disposition home or self-care (01) ==
LOC: ER 16:57 → MS 06-02 08:58
PROVIDERS: Admitting Provider Family Medicine; Emergency Provider Emergency Medicine; PCP Family Medicine; Visit Provider Family Medicine
DX: I50.33 Acute on chronic diastolic (congestive) heart failure (principal); I48.20 Chronic atrial fibrillation, unspecified; E78.5 Hyperlipidemia, unspecified; E11.9 Type 2 diabetes mellitus without complications; E03.9 Hypothyroidism, unspecified; F32.A Depression, unspecified; M10.9 Gout, unspecified; Z79.899 Other long term (current) drug therapy; Z79.01 Long term (current) use of anticoagulants; Z79.84 Long term (current) use of oral hypoglycemic drugs; Z79.890 Hormone replacement therapy; Z20.822 Contact with and (suspected) exposure to COVID-19
CPT/HCPCS: 36415; 71045; 80048; 80053; 82948; 83036; 83880; 84443; 84484; 85025; 87635; 87811; 93005; 93306; 94761; 96374; 96376; 97161; 97165; 97535; 99285; G0378; Q3014; U0003

== ENCOUNTER 2023-08-21 13:50 | Outpatient (OUT) | payer MEDICARE, SELFPAY ==
--- NOTE | 2023-08-21 14:15 | ECG_ITS ---
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
== END 2023-08-21 13:51 | disposition home or self-care (01) ==
LOC: RAD 13:54
PROVIDERS: PCP Family Medicine
DX: I48.91 Unspecified atrial fibrillation (principal); R07.9 Chest pain, unspecified
CPT/HCPCS: 93005

== ENCOUNTER 2024-03-12 07:52 | Outpatient (OUT) | payer MEDICARE, SELFPAY ==
--- NOTE | 2024-03-12 | ECG_ITS ---
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
--- NOTE | 2024-03-12 08:13 | XR_ITS ---
The [address] [address] Patient Name: PATRICIA ORNELAS MRN: [id number] date: 1950 Sex: F Assigned Patient Location: CARD Current Patient Location: Accession/Order Number: [id number] Exam Date: 03/12/2024 08:17 Report Date: 03/15/2024 16:50 At the request of: ANA GALINDO Procedure: XR chest 2V EXAM: XR chest 2V HISTORY: Angina Class 3 I20.9, Hypertension I10, Diabetes Mellitus COMPARISON: 06/03/2023 TECHNIQUE: Upright PA and lateral chest x-ray FINDINGS: The heart is borderline enlarged with prominence of the central pulmonary vasculature. No acute infiltrate, effusion or pneumothorax is identified. The osseous structures are grossly intact. XR/XR chest 2V IMPRESSION: Borderline cardiac enlargement with increasing prominence of the central pulmonary vasculature. There is no evidence of a focal infiltrate or overt cardiac decompensation, and the overall appearance of the chest is otherwise unchanged. Electronically authenticated by: OLENA RAMON Date: 03/15/2024 16:50
[2024-03-12 08:48] LABS: Basophils Percent Auto 0.5 % (0.2-2.0); Eosinophils Absolute Auto 0.1 10^3/uL (0.0-0.7); Eosinophils Percent Auto 1.4 % (0.9-7.0); Hemoglobin 10.9 g/dL (12.0-16.0); Immature Granulocytes Abs Auto 0.05 10^3/uL (0.00-0.03); Immature Granulocytes Pct Auto 0.6 % (0.0-0.5); Lymphocytes Percent Auto 24.2 % (20.5-60.0); Mean Corpuscular HGB Conc 30.3 g/dL (29.9-35.2); Mean Corpuscular Hemoglobin 27.7 pg (26.7-34.0); Mean Corpuscular Volume 91.6 fL (81.0-99.0); Mean Platelet Volume 11.8 fL (9.5-13.5); Monocytes Absolute Auto 0.6 10^3/uL (0.3-0.8); Monocytes Percent Auto 6.8 % (1.7-12.0); Neutrophils Absolute Auto 5.4 10^3/uL (1.4-6.5); Neutrophils Percent Auto 66.5 % (43.0-75.0); Platelet Count 210 10^3/uL (150-450); Red Blood Count 3.93 10^6/uL (4.20-5.40); Red Cell Distribution Width 15.6 % (11.0-15.0); White Blood Count 8.1 10^3/uL (4.0-11.0)
[2024-03-12 09:23] LABS: Alanine Aminotransferase 36 U/L (14-59); Albumin Globulin Ratio 0.9; Albumin Level 3.6 g/dL (3.4-5.0); Alkaline Phosphatase 91 U/L (46-116); Anion Gap 11.5; Aspartate Amino Transferase 37 U/L (15-37); BUN Creatinine Ratio 23.2; Bilirubin Total 0.4 mg/dL (0.2-1.0); Calcium 9.7 mg/dL (8.5-10.1); Carbon Dioxide 30.7 mmol/L (21.0-32.0); Chloride 104 mmol/L (98-107); Chol HDL Ratio 3.5; Cholesterol 109 mg/dL (<=200); Estimated GFR (African America 51 (>=60); Estimated GFR (Non-African Ame 42 (>=60); Glucose 126 mg/dL (74-106); HDL Cholesterol 31 mg/dL (40-60); Magnesium 2.2 mg/dL (1.8-2.4); Potassium 4.2 mmol/L (3.5-5.1); Sodium 142 mmol/L (136-145); TSH W/ REFLEX FT4 2.429 uIU/mL (0.358-3.740); Total Protein 7.6 g/dL (6.4-8.2); Triglycerides 132 mg/dL (<=150); VLDL CHOLESTEROL 26.4 mg/dL
== END 2024-03-12 07:53 | disposition home or self-care (01) ==
LOC: CARD 07:55
PROVIDERS: PCP Family Medicine
DX: I48.91 Unspecified atrial fibrillation (principal); I10 Essential (primary) hypertension; D64.9 Anemia, unspecified; E55.9 Vitamin D deficiency, unspecified; E11.9 Type 2 diabetes mellitus without complications; Z79.4 Long term (current) use of insulin; I20.9 Angina pectoris, unspecified; R07.9 Chest pain, unspecified; R06.02 Shortness of breath
CPT/HCPCS: 36415; 71046; 80053; 80061; 82306; 83735; 84443; 85025; 93005

== ENCOUNTER 2024-11-27 21:13 | Inpatient (IN) | payer MEDICARE, SELFPAY ==
[2024-11-27] VITALS (32 sets, daily range): BP systolic 44–172; BP diastolic 38–93; PULSE 99–151; TEMP 36.5; O2SAT 81–100; BMI 36.6
--- OUTSIDE RECORDS SUMMARY | 2024-11-27 21:20 | XMS_ITS | CCD ---
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 Name Role Phone NIRU CARTER Admitting Unavailab NIRU Sage Attending Unavailab yajaira NO, PHYSICIAN Primary Care Unavailable Aashish Laguna Primary Care Provider [phone] Aashish Laguna Primary Care Provider Aashish Laguna Primary Care Provider [phone] Aashish Laguna MD Primary Care Provider Aashish Laguna MD Primary Care Provider [phone] AASHISH LAGUNA Primary Care Physician Aashish Laguna MD Primary Care Provider [phone] ARAMESNURA PACHECO S Referring Unavailable AASHISH LAGUNA Primary Care Unavailable VIGESAA, PACHECO S Referring Unavailable AASHISH LAGUNA Primary Care Unavailable VIGESAA, PACHECO S Referring Unavailable AASHISH LAGUNA Primary Care Unavailable VIGESAA, PACHECO S Referring Unavailable AASHISH LAGUNA Primary Care Unavailable VIGESAA, PACHECO S Referring Unavailable AASHISH LAGUNA Primary Care Unavailable VIGESAA, PACHECO S Referring Unavailable AASHISH LAGUNA Primary Care Unavailable VIGESAA, PACHECO S Referring Unavailable AASHISH LAGUNA Primary Care Unavailable MD Aashish Laguna Primary Care Provider [phone] MD Aashish Laguna Attending Provider MD Aashish Laguna Primary Care Provider MD Aashish Laguna Attending Provider DO Jewel José Attending Provider [phone] AASHISH SELLERS Primary Care Unavailable DR NEVILLE MARTINEZ Attending Unavailabl e REINDUONG, DR NEVILLE Myers Admitting Unavailabl e REINDUONG, DR NEVILLE Myers Consulting Unavailabl e PAT, DR KEVIN Sandhu Consulting Unavailable HEMEYER ., DR OQUENDO Primary Care Unavailable HEMEYER ., DR OQUENDO Attending Unavailable HEMEYER ., DR OQUENDO Admitting Unavailable HEMEYER ., DR OQUENDO Primary Care Unavailable HEMEYER ., DR OQUENDO Attending Unavailable HEMEYER ., DR OQUENDO Admitting Unavailable HEMEYER ., DR OQUENDO Primary Care Unavailable HEMEYER ., DR OQUENDO Consulting Unavailable HEMEYER ., DR OQUENDO Attending Unavailable HEMEYER ., DR OQUENDO Admitting Unavailable HEMEYER ., DR OQUENDO Primary Care Unavailable MISC, DR ATKINS Attending Unavailable MISC, DR ATKINS Admitting Unavailable MISC, DR ATKINS Consulting Unavailable HEMEYER ., DR OQUENDO Primary Care Unavailable HEMEYER ., DR OQUENDO Consulting Unavailable HEMEYER ., DR OQUENDO Attending Unavailable HEMEYER ., DR OQUEDNO Admitting Unavailable HEMEYER ., DR OQUENDO Primary Care Unavailable HEMEYER ., DR OQUENDO Attending Unavailable HEMEYER ., DR OQUENDO Admitting Unavailable HEMEYER ., DR OQUENDO Consulting Unavailable HEMEYER ., DR OQUENDO Primary Care Unavailable ALICE, CANDACE Admitting Unavailable ALICE, CANDACE Attending Unavailable VIGESNURA, PACHECO Admitting Unavailable VIGESAA, PACHECO Consulting Unavailable VIGESNURA, PACHECO Attending Unavailable HEMEYER ., DR OQUENDO Primary Care Unavailable HEMEYER ., DR OQUENDO Primary Care Unavailable RINE, DR MIKE Voss Attending Unavailable RINBj, DR MIKE Voss Admitting Unavailable RINE, DR MIKE Voss Consulting Unavailable BELINDA, DR MELENDEZ Attending Unavailable BELINDA, DR MELENDEZ Admitting Unavailable BELINDA, DR MELENDEZ Consulting Unavailable HEMEYER ., DR OQUENDO Primary Care Unavailable OLENA RAMON Consulting Unavailable MD Aashish Laguna Primary Care Provider DO Angel Russ Attending Provider [phone] Aashish Laguna MD Unavailable Aashish Laguna MD Primary Care Provider Niru Carter MD Unavailable Aashish Laguna MD Unavailable [phone] Aashish Laguna MD Primary Care Provider Niru Castle MD Unavailable Aashish Laguna MD Unavailable Aashish Laguna MD Primary Care Provider [phone] AASHISH LAGUNA Attending Unavailable AASHISH LAGUNA Attending Unavailable AASHISH LAGUNA Attending Unavailable AASHISH LAGUNA Attending Unavailable AASHISH LAGUNA Attending Unavailable AASHISH LAGUNA Attending Unavailable AASHISH LAGUNA Attending Unavailable ANGEL RUSS Attending Unavailable Aashish Laguna MD Primary Care Provider [phone] Angel Russ DO Attending Provider Aashish Laguna Primary Care Unavailable Angel Russ Attending Unavailable Angel Russ Admitting Unavailable Allergies Allergy Classification Reported Allergen(s) Allergy Type Date of Onset Reaction(s) Facility (20 sources) Lisinopril; Translations: [Unknown] Drug Allergy 8 Swelling, Swelling (finding) [facility] (15 sources) Penicillins; Translations: [penicillins] Propensity to adverse reactions to drug 7 Rash, Unknown (qualifier value) [place], [place] (13 sources) Sulfanilamide Drug Allergy 7 Other (See Comments) [place], [place] (20 sources) Amino Acids Drug Allergy 2 [facility] (1 source) Sulfonamides (Antibiotic); Translations: [sulfa drugs] Drug allergy Unknown (qualifier value) [facility] (1 source) Sulfonamides (Antibiotic) Drug allergy (disorder) 7 [facility] (18 sources) Amoxicillin Drug Allergy 3 [facility] Healthcare Work Phone: (18 sources) Penicillin G Drug Allergy 3 Rash [facility] Healthcare (18 sources) Sulfanilamide Allergy to substance 3 [facility] Healthcare Medications Current Medications Medication Drug Class(es) Dates Sig (Normalized) Sig (Original) [id number] 200 actuat albuterol 0.09 mg/actuat metered dose inhaler (18 sources) beta2-Adrenergic Agonist Start: 02-05-2024 take 2 puff(s) by inhalation every six hours albuterol HFA 90 mcg/act inhaler Indications: Restrictive lung disease Inhale 2 puffs every 6 (six) hours if needed for shortness of breath 18 g 11 02/05/2024 Active Start: 12-11-2022 take 2 puff(s) by in halation every six hours albuterol HFA 90 mcg/act inhaler Inhale 2 puffs every 6 (six) hours if needed. 0 12/11/2022 Active amiodarone hydrochloride 200 mg oral tablet (8 sources) Antiarrhythmic Start: 01-08-2022 End: 05-04-2024 take 1 tablet by mouth once daily amiodarone (CORDARONE) 200 MG tablet Take 1 tablet by mouth daily 30 tablet 11 01/08/2022 Active amLODIPine 5 mg oral tablet (6 sources) Dihydropyridine Calcium Channel Dimitry Start: 07-27-2019 take 1 mg by mouth once daily amLODIPine 5 mg Tab mg tab(s), Oral, Daily, Refills(s) 0 Start Date: 07/27/19 Status: Ordered Start: 05-07-2019 take 2 tablets by mo uth once daily amLODIPine (NORVASC) 5 MG tablet Take 2 tablets by mouth daily 60 tablet 11 05/07/2019 Active take 1 tablet by meliton th twice daily amLODIPine (NORVASC) 5 MG tablet Take 5 mg by mouth 2 times daily 0 Active apixaban 5 mg oral tablet (20 sources) Factor Xa Inhibitor Start: 04-17-2023 take 1 tablet by mouth in the morning Eliquis 5 MG tablet Take 5 mg by mouth in the morning and 5 mg before bedtime. 04/17/2023 Active Start: 03-21-2022 take 1 tablet by meliton th twice daily ELIQUIS 5 MG TABS tablet TAKE ONE TABLET BY MOUTH TWICE A DAY 60 tablet 5 03/21/2022 Active Start: 03-29-2021 End: 02-12-2022 take 1 tablet by mouth twice daily ELIQUIS 5 MG TABS tablet TAKE 1 TABLET BY MOUTH 2 TIMES DAILY 60 tablet 5 09/27/2021 Active Ascorbic Acid (6 sources) Vitamin C Start: 07-27-2019 Vitamin C Myra y, Refills(s) 0 Start Date: 07/27/19 Status: Ordered take 1 tablet by mouth twice heather ly Ascorbic Acid (VITAMIN C) 500 MG tablet Take 500 mg by mouth 2 times daily 0 Active Aspir 81 (1 source) Start: 07-27-2019 take 1 mg by mouth once daily Aspir 81 mg, Oral, Daily, Refills(s) 0 Start Date: 07/27/19 Status: Ordered aspirin 81 mg oral tablet (5 sources) Platelet Aggregation Inhibitor, Nonsteroidal Anti-inflammatory Drug take 1 tablet by mouth once daily aspirin 81 MG tablet Take 81 mg by mouth daily 0 Active take 1 tablet by mouth once myra y aspirin 81 MG EC tablet Take 81 mg by mouth daily . 0 Active atorvastatin 10 mg oral tablet (20 sources) HMG-CoA Reductase Inhibitor Start: 08-13-2023 End: 01-17-2025 take 1 tablet by mouth once daily atorvastatin (Lipitor) 10 MG tablet Indications: Hyperlipidemia, mixed (CMS/HCC) Take 1 tablet (10 mg) by mouth Daily 90 tablet 1 07/21/2024 01/17/2025 Active Start: 07-20-2018 take 1 tablet by meliton th once daily atorvastatin (LIPITOR) 10 MG tablet TAKE ONE TABLET BY MOUTH ONCE DAILY 30 tablet 11 08/07/2020 Active B complex with C 20-folic acid (b wztmkez-L-gbsbp acid) 1 mg cap (2 sources) take 1 capsule by mouth twice daily B complex with C 20-folic acid (b sqqayfj-E-kzjyn acid) 1 mg cap Take 1 capsule by mouth 2 (two) times a day . 0 Active 12 hr buPROPion hydrochloride 150 mg extended release oral tablet (20 sources) Aminoketone Start: 3 End: 5 take 1 tablet by mouth every twelve hours in the morning buPROPion SR (Wellbutrin SR) 150 MG 12 hr tablet Indications: Recurrent major depressive disorder, in partial remission (HCC) (CMS/HCC) Take 1 tablet (150 mg) by mouth in the morning and 1 tablet (150 mg) before bedtime. 60 tablet 5 05/12/2024 Active Start: 07-27-2019 take 1 mg by mouth twice daily buPROPion 150 mg ER Tab mg tab(s), Oral, BID, Refills(s) 0 Start Date: 07/27/19 Status: Ordered take 1 tablet by meliton th twice daily buPROPion (WELLBUTRIN XL) 150 MG 24 hr tablet Take 150 mg by mouth 2 (two) times a day . 0 Active Calcium Citrate (1 source) Start: 07-27-2019 calcium citrat e Oral, BID, 315-250 mg, Refills(s) 0 Start Date: 07/27/19 Status: Ordered calcium citrate 1500 mg / cholecalciferol 250 unt oral tablet (11 sources) Vitamin D take 1 tablet by mouth twice daily at mealtime calcium citrate-vitamin D (CITRICAL + D) 315-250 MG-UNIT TABS per tablet Take 1 tablet by mouth 2 times daily (with meals) 0 Active take 1 tablet by mouth twice heather ly calcium citrate-vitamin D (CITRACAL+D) 315- 200 mg-unit per tablet Take 1 tablet by mouth 2 (two) times a day . 0 Active Calcium Citrate / Vitamin D (2 sources) take 1 tablet by mouth twice daily at mealtime calcium citrate-vitamin D (CITRICAL + D) 315-250 MG-UNIT TABS per tablet Take 1 tablet by mouth 2 times daily (with meals) 0 Active CHELATED IRON PO (11 sources) CHELATED IRON PO Take by mouth 0 Active Chelated Iron PO (1 source) Start: 07-27-20 Chelated Iron PO Chelated Iron PO Start Date: 07/27/19 Status: Ordered cholecalciferol 0.05 mg oral capsule (9 sources) Vitamin D Cholecalciferol (VITAMIN D3) 50 MCG (1999) CAPS Take by mouth 0 Active 24 hr dilTIAZem hydrochloride 120 mg extended release oral capsule (20 sources) Calcium Channel Dimitry Start: 01-09-20 take 1 capsule by mouth twice daily dilTIAZem (CARDIZEM CD) 120 MG extended release capsule Take 1 capsule by mouth 2 times daily 60 capsule 01/08/2022 Active Start: 05-01-2021 take 1 capsule by nd uth once daily dilTIAZem (CARDIZEM CD) 120 MG extended release capsule Take 1 capsule by mouth daily 30 capsule 05/01/2021 Active furosemide 20 mg oral tablet (20 sources) Loop Diuretic Start: 08-13-2023 End: 01-17-2025 take 1 tablet by mouth in the morning furosemide (Lasix) 20 MG tablet Indications: Pulmonary hypertension (CMS/HCC) Take 1 tablet (20 mg) by mouth in the morning. 90 tablet 1 07/21/2024 01/17/2025 Active Start: 06-17-2022 take 1 tablet by meliton th once daily in the morning furosemide (LASIX) 20 MG tablet TAKE ONE TABLET BY MOUTH DAILY IN THE MORNING 30 tablet 11 06/17/2022 Active Start: 07-12-2021 take 1 tablet by meliton th once daily in the morning furosemide (LASIX) 20 MG tablet TAKE ONE TABLET BY MOUTH DAILY IN THE MORNING 30 tablet 11 07/12/2021 Active gemfibrozil 600 mg oral tablet (20 sources) Peroxisome Proliferator Receptor alpha Agonist Start: 08-13-2023 End: 01-17-2025 take 1 tablet by mouth in the morning gemfibrozil (Lopid) 600 MG tablet Indications: Hyperlipidemia, mixed (CMS/HCC) Take 1 tablet (600 mg) by mouth in the morning and 1 tablet (600 mg) before bedtime. 180 tablet 1 07/21/2024 01/17/2025 Active Start: 07-27-2019 take 1 mg by mouth twice daily gemfibrozil 600 mg Tab mg tab(s), Oral, BID, Refills(s) 0 Start Date: 07/27/19 Status: Ordered 24 hr isosorbide mononitrate 30 mg extended release oral tablet (20 sources) Nitrate Vasodilator Start: 02-05-2024 take 1 tablet by mouth once daily isosorbide mononitrate ER (Imdur) 30 MG 24 hr tablet Indications: Coronary artery disease involving [place] coronary artery of [place] heart without angina pectoris (CMS/HCC) Take 1 tablet (30 mg) by mouth Daily 30 tablet 1 02/05/2024 Active Start: 07-27-2019 take 1 tablet by meliton th once daily isosorbide mononitrate (IMDUR) 30 MG extended release tablet Take 1 tablet by mouth daily 30 tablet 11 09/17/2022 Active Start: 05-14-2019 End: 09-17-2022 take 1 tablet by mouth twice daily isosorbide mononitrate (IMDUR) 30 MG extended release tablet TAKE ONE TABLET BY MOUTH TWICE A DAY 60 tablet 11 10/24/2021 09/17/2022 Discontinued levothyroxine sodium 0.05 mg oral tablet (20 sources) l-Thyroxine Start: 05-04-2024 End: 04-24-2025 take 1 tablet by mouth before mealtime levothyroxine (Synthroid, Levoxyl) 50 MCG tablet Indications: Acquired hypothyroidism (CMS/HCC) Take 1 tablet (50 mcg) by mouth in the morning. Take before meals. 90 tablet 1 10/26/2024 04/24/2025 Active Start: 08-13-2023 End: 05-04-2024 take 1 tablet by mouth before mealtime levothyroxine (Synthroid, Levoxyl) 75 MCG tablet Indications: Acquired hypothyroidism (CMS/HCC) Take 1 tablet (75 mcg) by mouth in the morning. Take before meals. 90 tablet 10/15/2023 Active liothyronine sodium 0.005 mg oral tablet (20 sources) l-Triiodothyronine Start: 07-17-2023 End: 10-26-2024 liothyronine (Cytomel) 5 MCG tablet Indications: ESS (euthyroid sick syndrome) Take 1 tablet in AM and 1 tablet in PM on an empty stomach. DUARTE; [employer] or [employer] brands only 180 tablet 1 10/26/2024 Active Start: 07-27-2019 take 1 tablet by meliton th once daily liothyronine 5 mcg Tab microgram tab(s), Oral, Daily, Refills(s) 0 Start Date: 07/27/19 Status: Ordered take 1 tablet by meliton th once daily liothyronine (CYTOMEL) 5 MCG tablet Take 5 mcg by mouth daily 0 Active lutein 40 mg oral capsule (4 sources) take 1 capsule by mouth once daily lutein 40 mg cap Take 40 mg by mouth daily . 0 Active metFORMIN hydrochloride 1000 mg oral tablet (20 sources) Biguanide Start: 08-13-2023 End: 01-17-2025 take 1 tablet by mouth in the morning metFORMIN (Glucophage) 1000 MG tablet Indications: Type 2 diabetes mellitus with stage 3b chronic kidney disease, without long-term current use of insulin (HCC) (CMS/HCC) Take 1 tablet (1,000 mg) by mouth in the morning and 1 tablet (1,000 mg) in the evening. Take with meals. 180 tablet 1 07/21/2024 01/17/2025 Active Start: 07-27-2019 take 1 mg by mouth once daily metformin 1000 mg oral tablet, extended release mg tab(s), Oral, Daily, Refills(s) 0 Start Date: 07/27/19 Status: Ordered End: 09-17-2022 take 1 tablet by mouth twice daily at mealtime metFORMIN (GLUCOPHAGE) 1000 MG tablet Take 1,000 mg by mouth 2 times daily (with meals) 0 Active End: 05-19-2019 take 1 tablet by mouth twice daily metFORMIN (GLUMETZA) 1000 MG (MOD) 24 hr tablet Take 1,000 mg by mouth 2 (two) times a day . 0 05/19/2019 Discontinued (Stop Taking at Discharge) metoprolol tartrate 50 mg oral tablet (20 sources) beta-Adrenergic Dimitry Start: 04-17-2023 take 1 tablet by mouth in the morning metoprolol tartrate (Lopressor) 50 MG tablet Take 50 mg by mouth in the morning and 50 mg before bedtime. 04/17/2023 Active Start: 09-17-2022 take 1 tablet by meliton th twice daily metoprolol tartrate (LOPRESSOR) 50 MG tablet Take 1 tablet by mouth 2 times daily 60 tablet 11 09/17/2022 Active Start: 12-20-2021 take 1 tablet by meliton th twice daily Metoprolol Tartrate 37.5 MG TABS TAKE ONE TABLET BY MOUTH TWICE A DAY 0 12/20/2021 Active Start: 07-27-2019 take 1 mg by mouth once daily metoprolol 25 mg ER Tab mg tab(s), Oral, Daily, Refills(s) 0 Start Date: 07/27/19 Status: Ordered Start: 02-08-2019 metoprolol tar trate (LOPRESSOR) 25 MG tablet TAKE ONE TABLET TWICE A DAY 60 tablet 11 01/10/2020 Active 24 hr mirabegron 50 mg extended release oral tablet (4 sources) beta3-Adrenergic Agonist take 50 mg by mouth twice daily MIRABEGRON ORAL Take 50 mg by mouth 2 (two) times a day . 0 Active Multiple Vitamins-Minerals (SENTRY SENIOR) TABS (11 sources) take 1 tablet by mouth twice daily Multiple Vitamins-Minerals (SENT SENIOR) TABS Take by mouth 2 times daily 0 Active multivitamin with minerals tablet (2 sources) take 1 tablet by mouth once daily multivitamin with minerals tablet Take 1 tablet by mouth daily . 0 Active nitroglycerin 0.4 mg sublingual tablet (15 sources) Nitrate Vasodilator Start: 019 nitroGLYCERIN (NITROSTAT) 0.[address] 1 tablet under the tongue every 5 minutes as needed for Chest pain 25 tablet 3 01/08/2022 Active Start: 05-17-2019 End: 05-19-2019 nitroGLYCERIN (NITROSTAT) 0. [address] 1 tablet under the tongue every 5 minutes as needed for Chest pain 25 tablet 3 05/17/2019 Active nystatin 100 unt/mg / triamcinolone acetonide 0.001 mg/mg topical ointment (5 sources) Polyene Antifungal, Corticosteroid Start: 08-23-2024 nystatin-triamcinolone (Mycolog II) ointment Indications: Chronic vulvitis Apply topically 2 (two) times a day 30 g 08/23/2024 Active potassium chloride 10 meq extended release oral tablet (18 sources) take 1 tablet by mouth every twelve hours potassium chloride CR (Klor-Con) 10 MEQ ER tablet Take 10 mEq by mouth every 12 (twelve) hours. Active QUEtiapine 25 mg oral tablet (19 sources) Atypical Antipsychotic Start: 11-11-2023 End: 05-12-2024 QUEtiapine (SEROquel) 25 MG tablet Indications: Chronic post-traumatic stress disorder (PTSD) (CMS/HCC) 1/2 tablet at bedtime 15 tablet 5 05/12/2024 Active Start: 10-15-2023 End: 10-22-2023 QUEtiapine (SEROquel) 25 MG tablet Indications: Chronic post-traumatic stress disorder (PTSD) (CMS/HCC) 1/2 to 2 tablets at bedtime 60 tablet 0 10/15/2023 10/22/2023 Discontinued (Reorder) [facility] (1 source) Start: 07-27-2019 [facility] Start Date: 07/27/19 Status: Ordered thyroid (alf) 30 mg oral tablet (6 sources) Start: 12-20-2021 take 1 tablet by mouth twice daily ENDBAND SIZER THYROID 30 MG tablet TAKE ONE TABLET BY MOUTH TWICE A DAY ON AN EMPTY STOMACH 0 12/20/2021 Active Completed/Discontinued Medications Medication Drug Class(es) Dates Sig (Normalized) Sig (Original) allopurinol 300 mg oral tablet (20 sources) Xanthine Oxidase Inhibitor Start: 05-12-2024 End: 05-12-2025 take 1 tablet by mouth once daily allopurinol (Zyloprim) 300 MG tablet Indications: Hyperuricemia Take 1 tablet (300 mg) by mouth Daily 30 tablet 11 05/12/2024 10/26/2024 Discontinued (Therapy completed) Start: 08-13-2023 End: 10-26-2024 take 1 tablet by mouth once daily allopurinol (Zyloprim) 100 MG tablet Indications: Hyperuricemia Take 1 tablet (100 mg) by mouth Daily 30 tablet 05/12/2024 10/26/2024 Discontinued (Therapy completed) colchicine 0.6 mg oral table t (17 sources) Start: 05-12-2024 End: 10-26-2024 colchicine 0.6 MG tablet Indications: Acute idiopathic gout involving toe, unspecified laterality initial dose of 1 tablet followed by 1 tablet every 2 hours until the gouty pain is relieved, gastrointestinal symptoms develop, or the maximum dose is reached. Hold metformin while taking 4 tablet 05/12/2024 10/26/2024 Discontinued (Therapy completed) Start: 04-28-2024 End: 05-04-2024 colchicine 0.6 MG tablet Ind ications: Acute idiopathic gout involving toe, unspecified laterality initial dose of 1 tablet followed by 1 tablet every 2 hours until the gouty pain is relieved, gastrointestinal symptoms develop, or the maximum dose is reached. Hold metformin while taking 4 tablet 04/28/2024 05/04/2024 Discontinued (Therapy completed) Start: 10-18-2022 End: 04-28-2024 colchicine 0.6 MG tablet Ector e 0.6 mg by mouth if needed. 10/18/2022 04/28/2024 Discontinued (Reorder) digoxin 0.125 mg oral tablet (7 sources) Cardiac Glycoside Start: 08-21-2023 End: 05-04-2024 take 1 tablet by mouth in the morning digoxin (Lanoxin) 125 MCG tablet Take 125 mcg by mouth in the morning. 08/21/2023 05/04/2024 Discontinued (Therapy completed) ondansetron (ZOFRAN-ODT) disintegrating tablet 4 mg (1 source) Start: 05-19-2019 End: 05-19-2019 take 1 tablet by mouth every six hours as needed ondansetron (ZOFRAN-ODT) disintegrating tablet 4 mg 100 ml propofol 10 mg/ml injection (2 sources) General Anesthetic Start: 02-12-2022 End: 02-12-2022 propofol injection Start: 06-11-2021 End: 06-11-2021 propofol injection regadenoson (LEXISCAN) injec tion 0.4 mg (1 source) Start: 09-17-2022 End: 09-17-2022 regadenoson (LEXISCAN) injection 0.4 mg 5 ml sodium chloride 9 mg/ml injection (6 sources) Start: 09-17-2022 End: 09-17-2022 sodium chloride flush 0.9 % injection 5-40 mL Start: 02-12-2022 End: 02-12-2022 sodium chloride 0.45 % bolus Start: 06-11-2021 0.45 % sodium chloride infusion Start: 05-19-2019 End: 05-19-2019 250 mL, Intravenous, at 937. 5 mL/hr, As needed, IF patient heart rate is less than 50 BPM and Systolic BP is less than 90 mmHG, notify Bus Girl, place patient in Trendelenberg, and give 0.9% NaCl bolus, Starting 05/19/19 at 0906, For 1 dose Start: 05-19-2019 End: 05-19-2019 sodium chloride 0.9% (NS) technetium sestamibi (CARDIOLITE) injection 10 millicurie (1 source) Start: 09-17-2022 End: 09-17-2022 technetium sestamibi (CARDIOLITE) injection 10 millicurie technetium sestamibi (CARDIOLITE) injection 30 millicurie (1 source) Start: 09-17-2022 End: 09-17-2022 technetium sestamibi (CARDIOLITE) injection 30 millicurie Problems Active Problems Problem Classification Problem Date Documented Date Episodic/Chronic Allergic reactions (1 source) Chronic dermatitis; Translations: [Dermatitis, unspecified] 08-23-2024 Episodic Anxiety disorders (20 sources) Post-traumatic stress disorder, unspecified; Translations: [Chronic post-traumatic stress disorder] Onset: 3 05-14-2023 Chronic Calculus of urinary tract (1 source) Kidney stone 07-27-2019 Episodic Cardiac dysrhythmias (20 sources) Atrial fibrillation; Translations: [Unspecified atrial fibrillation] Onset: 2 Chronic Chronic kidney disease (20 sources) Chronic kidney disease stage 3A ; Translations: [Stage 3a chronic kidney disease (HCC)] Onset: 3 05-14-2023 Chronic Chronic kidney disease (1 source) Chronic kidney disease; Translations: [CHRONIC KIDNEY DISEASE STAGE 3A] Onset: 3 Congestive heart failure; nonhypertensive (1 source) Heart failure, unspecified; Translations: [HEART FAILURE UNSPECIFIED] Onset: 3 Chronic Coronary atherosclerosis and other heart disease (20 sources) Coronary arteriosclerosis; Translations: [Atherosclerotic heart disease of [place] coronary artery without angina pectoris] Onset: 3 05-14-2023 Chronic Diabetes mellitus with complications (20 sources) Microalbuminuric diabetic nephropathy; Translations: [Type 2 diabetes mellitus with diabetic nephropathy] Onset: 3 05-14-2023 Chronic Diabetes mellitus without complication (20 sources) Diabetes mellitus without complication; Translations: [Type 2 diabetes mellitus without complications] Onset: 7 12-13-2016 Chronic Disorders of lipid metabolism (20 sources) Pure hypercholesterolemia, unspecified; Translations: [Mixed hyperlipidemia] Onset: 3 05-14-2023 Chronic Essential hypertension (20 sources) Hypertensive disorder; Translations: [Essential (primary) hypertension] Onset: 8 04-20-2018 Chronic Genitourinary symptoms and ill-defined conditions (20 sources) Urge incontinence; Translations: [Stress incontinence (female) (male)] Onset: 2 Chronic Genitourinary symptoms and ill-defined conditions (4 sources) Incomplete emptying of bladder; Translations: [Increased frequency of urination] 02-12-2021 Episodic Gout and other crystal arthropathies (3 sources) Primary gout; Translations: [Idiopathic gout, unspecified ankle and foot] 05-12-2024 Chronic Inflammatory diseases of female pelvic organs (1 source) Chronic vulvitis; Translations: [Subacute and chronic vulvitis] 08-23-2024 Episodic Malaise and fatigue (20 sources) Chronic fatigue, unspecified; Translations: [Chronic fatigue syndrome] Onset: 3 Resolved: 5 Chronic Menopausal disorders (18 sources) Atrophic vaginitis; Translations: [Postmenopausal atrophic vaginitis] Onset: 3 05-14-2023 Chronic Mood disorders (20 sources) Recurrent major depression in partial remission; Translations: [Major depressive disorder, recurrent, in partial remission] Onset: 3 05-14-2023 Chronic Nonmalignant breast conditions (18 sources) Fibrocystic disease of breast; Translations: [Diffuse cystic mastopathy of unspecified breast] Onset: 3 05-14-2023 Chronic Nonspecific chest pain (15 sources) Chest pain; Translations: [Chest pain, unspecified] Onset: 7 12-13-2016 Episodic Nutritional deficiencies (12 sources) Vitamin D deficiency; Translations: [Vitamin D deficiency, unspecified] Onset: 7 12-13-2016 Chronic Osteoarthritis (20 sources) Primary osteoarthritis, right ankle and foot; Translations: [Unspecified osteoarthritis, unspecified site] Onset: 3 05-14-2023 Chronic Other aftercare (1 source) Other skilled nursing (current) drug therapy; Translations: [OTH SECTION BEAMER CURRENT DRUG THERAPY] Onset: 3 Episodic Other aftercare (1 source) 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; Translations: [SECTION BEAMER USE ORAL HYPOGLYCEMIC DX] Onset: 3 Episodic Other and ill-defined heart disease (18 sources) Bilateral enlargement of atria; Translations: [Cardiomegaly] Onset: 3 05-14-2023 Chronic Other connective tissue disease (3 sources) Pain in right foot; Translations: [PAIN IN RIGHT FOOT] Onset: 3 Episodic Other diseases of bladder and urethra (1 source) Detrusor overactivity; Translations: [Overactive bladder] Onset: 2 Chronic Other diseases of bladder and urethra (2 sources) Overactive bladder 06-05-2020 Chronic Other ear and sense organ disorders (18 sources) Hearing loss; Translations: [Unspecified hearing loss, unspecified ear] Onset: 3 05-14-2023 Chronic Other hereditary and degenerative nervous system conditions (20 sources) Mild cognitive impairment, so stated; Translations: [Mild cognitive impairment, so stated] Onset: 3 05-14-2023 Chronic Other injuries and conditions due to external causes (1 source) History of falling; Translations: [HISTORY OF FALLING] Onset: 3 Episodic Other liver diseases (18 sources) Fatty (change of) liver, not elsewhere classified; Translations: [Other chronic nonalcoholic liver disease] Onset: 3 05-14-2023 Chronic Other non-traumatic joint disorders (4 sources) Pain in right ankle and joints of right foot; Translations: [PAIN IN RIGHT ANKLE] Onset: 3 Episodic Other nutritional; endocrine; and metabolic disorders (1 source) Morbid (severe) obesity due to excess calories; Translations: [MORBID SEVERE OBES D/T EXCESS NAGI] Onset: 3 Chronic Other nutritional; endocrine; and metabolic disorders (1 source) Body mass index (BMI) 40.0-44.9, adult; Translations: [BODY MASS INDEX BMI 40.0-44.9 ADULT] Onset: 3 Chronic Other nutritional; endocrine; and metabolic disorders (20 sources) Morbid obesity; Translations: [Morbid (severe) obesity due to excess calories] Onset: 3 05-14-2023 Chronic Other nutritional; endocrine; and metabolic disorders (20 sources) Body mass index 40+ - severely obese; Translations: [Body mass index (BMI) 40.0-44.9, adult] Onset: 4 11-11-2023 Chronic Other nutritional; endocrine; and metabolic disorders (2 sources) Hyperuricemia; Translations: [Hyperuricemia without signs of inflammatory arthritis and tophaceous disease] 05-12-2024 Episodic Other conditions (1 source) Omphalitis; Translations: [Omphalitis without hemorrhage] 08-23-2024 Episodic Other screening for suspected conditions (not mental disorders or infectious disease) (6 sources) Electrocardiogram abnormal; Translations: [Abnormal electrocardiogram [ECG] [EKG]] Onset: 3 Episodic Prolapse of female genital organs (18 sources) Incomplete uterovaginal prolapse; Translations: [Incomplete uterovaginal prolapse] Onset: 3 05-14-2023 Chronic Pulmonary heart disease (20 sources) Pulmonary hypertension; Translations: [Pulmonary hypertension, unspecified] Onset: 3 05-14-2023 Chronic Spondylosis; intervertebral disc disorders; other back problems (20 sources) Degeneration of thoracic intervertebral disc; Translations: [Other intervertebral disc degeneration, thoracic region] Onset: 3 05-14-2023 Chronic Thyroid disorders (20 sources) Other specified hypothyroidism; Translations: [Acquired hypothyroidism] Onset: 3 05-14-2023 Chronic Unclassified (1 source) Drug therapy finding 06-05-2020 Past or Other Problems Problem Classification Problem Date Documented Da te Episodic/Chronic Coronary atherosclerosis and other heart disease (20 sources) Patient post percutaneous transluminal coronary angioplasty; Translations: [Coronary angioplasty status] Onset: 12-13-2016 12-13-2016 Episodic Deficiency and other anemia (19 sources) Anemia; Translations: [Anemia, unspecified] Onset: 05-14-2023 Episodic Deficiency and other anemia (2 sources) Iron deficiency anemia; Translations: [Iron deficiency anemia, unspecified] 05-04-2024 Episodic Heart valve disorders (18 sources) Heart murmur; Translations: [Cardiac murmur, unspecified] Onset: 05-14-2023 05-14-2023 Episodic Mood disorders (15 sources) Mood disorders Onset: 12-02-2023 12-02-2023 Other aftercare (1 source) 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 (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; Translations: [SECTION BEAMER CURRNT USE ANTICOAGULANTS] Onset: 09-06-2022 Episodic Other diseases of kidney and ureters (1 source) Renal impairment; Translations: [Renal insufficiency] Episodic Other diseases of veins and lymphatics (15 sources) Venous insufficiency of leg; Translations: [Venous insufficiency (chronic) (peripheral)] Onset: 05-04-2024 05-04-2024 Episodic Other lower respiratory disease (13 sources) Dyspnea; Translations: [Shortness of breath] Onset: 12-13-2016 12-13-2016 Episodic Other lower respiratory disease (18 sources) Restrictive lung disease; Translations: [Other disorders of lung] Onset: 05-14-2023 05-14-2023 Episodic Other lower respiratory disease (2 sources) Dyspnea on exertion; Translations: [Other forms of dyspnea] 05-04-2024 Episodic Spondylosis; intervertebral disc disorders; other back problems (3 sources) Pain in thoracic spine; Translations: [PAIN IN THORACIC SPINE] Onset: 09-05-2022 Episodic Thyroid disorders (20 sources) Sick-euthyroid syndrome; Translations: [Sick-euthyroid syndrome] Onset: 11-08-2022 05-14-2023 Episodic Urinary tract infections (1 source) Urinary tract infection, site not specified; Translations: [UTI SITE NOT SPECIFIED] Onset: 09-06-2022 Episodic Results Test Name Value Interpretation Reference Range Facility MM screening mammo BI w/CADo n 11-25-2024 MM screening mammo BI w/CAD [facility] [address] [place] [address] Mammography Report Signed Patient: Patricia Blake MR#: [id number] : 1950 Acct:[id number] Age/Sex: 74 / F Adm Date: 11/25/24 Loc: [place] Room: Type: [facility] Attending Dr: Angel Russ DO Ordering Provider: Angel Russ DO Date of Service: 11/25/24 Procedure(s): MM screening mammo BI w/CAD Accession Number(s): ([id number]) MM/MM screening mammo BI w/CAD: SCREENING Copies to: MD Angel Vera DO CLINICAL DATA: Screening for malignancy. BILATERAL SCREENING MAMMOGRAMS - FULL FIELD DIGITAL WITH TOMOSYNTHESIS AND CAD Tomosynthesis craniocaudal and mediolateral oblique views of both breasts were obtained using low- dose digital technique. Comparison is made to prior studies from August 27, 2021 through October 02, 2023. This examination was reviewed with the aid of CAD. The breast parenchyma has been largely replaced by fat. Benign calcifications and asymmetries are again seen. There are no developing masses, typically malignant calcifications or architectural distortion. There has been no significant interval change. MM/MM screening mammo BI w/CAD IMPRESSION: NO MAMMOGRAPHIC EVIDENCE OF MALIGNANCY. ROUTINE FOLLOW-UP IS RECOMMENDED IN ONE YEAR. RESULT CODE: 2 Benign Findings(s) DENSITY CODE: 1 (<25% glandular) FOLLOW UP: 1YR The false-negative rate of mammography is approximately 10-percent. Management of a palpable abnormality must be based on clinical grounds. Patient was entered into a reminder system with a target due date for the next mammogram. Impression dictated by: Savi Prather M.D.11/25/2024 3:02 PM Dictation Location: [facility] Dictated By: Savi Prather MD 11/25/24 1459 Signed By: 11/25/24 1503 Normal [facility] Mammography reportOrdered By : Savi Prather on 11-25-2024 Diagnostic imaging study [facility] [address] [place] [address] Mammography Report Signed Patient: Patricia Blake MR#: [id number] : 1950 Acct:[id number] Age/Sex: 74 / F Adm Date: 5 Loc: [place] Room: Type: [facility] Attending Dr: Angel Russ DO Ordering Provider: Angel Russ DO Date of Service: 11/25/24 Procedure(s): MM screening mammo BI w/CAD Accession Number(s): ([id number]) MM/MM screening mammo BI w/CAD: SCREENING Copies to: MD nAgel Vera DO~ CLINICAL DATA: Screening for malignancy. BILATERAL SCREENING MAMMOGRAMS - FULL FIELD DIGITAL WITH TOMOSYNTHESIS AND CAD Tomosynthesis craniocaudal and mediolateral oblique views of both breasts were obtained using low-dose digital technique. Comparison is made to prior studies from August 27, 2021 through October 02, 2023. This examination was reviewed with the aid of CAD. The breast parenchyma has been largely replaced by fat. Benign calcifications and asymmetries are again seen. There are no developing masses, typically malignant calcifications or architectural distortion. There has been no significant interval change. MM/MM screening mammo BI w/CAD IMPRESSION: NO MAMMOGRAPHIC EVIDENCE OF MALIGNANCY. ROUTINE FOLLOW-UP IS RECOMMENDED IN ONE YEAR. RESULT CODE: 2 Benign Findings(s) DENSITY CODE: 1 (<25% glandular) FOLLOW UP: 1YR The false-negative rate of mammography is approximately 10-percent. Management of a palpable abnormality must be based on clinical grounds. Patient was entered into a reminder system with a target due date for the next mammogram. Impression dictated by: Savi Prather M.D.11/25/2024 3:02 PM Dictation Location: [facility] Dictated By: Savi Prather MD 11/25/24 1451 Signed By: 11/25/24 6647 [facility] Work Phone: T3 REVERSE, LC/MS/MSon 10-23 T3 REVERSE, LC/MS/MS 17 ng/dL Normal 8-25 [facility] Comment on above: Order Comment: FASTI NG:NO FASTING: NO Result Comment: This test was developed and its analytical performance characteristics have been determined by [employer] [place], [place]. It has not been cleared or approved by the U.S. Food and Drug Administration. This assay has been validated pursuant to the CLIA regulations and is used for clinical purposes. Performed By: #### 8 66, 859, 069, [id number] #### [facility] [address], [address] [place] [address] Planetarium Technician: Jaylon Bagley MD #### [id number] #### [facility]/[address] [place], [place] Planetarium Technician: Gian Collins M.D.,PhD T3, FREEon 10-23-2024 Free T3 [Mass/Vol] 3.2 pg/mL Normal 2.3-4.2 [facility] Comment on above: Performed By: #### 8 66, 859, 271, [id number] #### [facility] [address], [address] [place] [address] Planetarium Technician: Jaylon Bagley MD #### [id number] #### [facility]/[place] [id number] [facility] [place], [place] Planetarium Technician: Gian Collins M.D.,PhD T3, TOTALon 10-23-2024 T3, TOTAL 131 ng/dL Normal 76-181 [facility] Comment on above: Performed By: #### 8 66, 859, 218, [id number] #### [facility] [address], [address] [place] [address] Planetarium Technician: Jaylon Bagley MD #### [id number] #### [facility]/[place] [id number] [facility] [place], [place] Planetarium Technician: Gian Collins M.D.,PhD T4, FREEon 10-23-2024 Free T4 [Mass/Vol] 1.2 ng/dL Normal 0.8-1.8 [facility] Comment on above: Performed By: #### 8 66, 859, 899, [id number] #### [facility] [address], [address] [place] [address] Planetarium Technician: Jaylon Bagley MD #### [id number] #### [facility]/[place] [id number] [facility] [place], [place] Planetarium Technician: Gian Collins M.D.,PhD TSHon 10-23-2024 TSH Qn 1.47 m[IU]/L Normal 0.40-4.50 [facility] Comment on above: Performed By: #### 8 66, 859, 899, [id number] #### [facility] [address], [address] [place] [address] Planetarium Technician: Jaylon Bagley MD #### [id number] #### [facility] [address] [facility] [place], [place] Planetarium Technician: Gian Collins M.D.,PhD T3, TOTAL (TRIIODOTHYRONINE) on 11-05-2022 T3, TOTAL 174 ng/dL Normal 71-180 [facility] Comment on above: Performed By: #### C BC #### [facility] [address] [address] [address] Sami William CBC AUTO DIFFon 10-18-2022 BASO # 0.0 103/ul Normal 0.0-0.1 [facility] Comment on above: Performed By: #### C BC #### [facility] [address] [address] [address] Sami William Basophils/100 WBC (Bld) 0.3 % Normal 0.2-2.0 [facility] Comment on above: Performed By: #### C BC #### [facility] [address] [place] [address] Dr. Sami William EO # 0.1 103/ul Normal 0.0-0.7 [facility] Comment on above: Performed By: #### C BC #### [facility] [address] [place] [address] Dr. Sami William Eosinophils/100 WBC (Bld) 1.2 % Normal 0.9-7.0 [facility] Comment on above: Performed By: #### C BC #### [facility] [address] [place] [address] Dr. Sami William Erythrocyte distribution width (RBC) [Ratio] 15.7 % Critically high 11.0-15.0 [facility] Comment on above: Performed By: #### C BC #### [facility] [address] [place] [address] Dr. Sami William Hematocrit (Bld) [Volume fraction] 35.9 % Critically low 36.0-48.0 [facility] Comment on above: Performed By: #### C BC #### [facility] [address] [place] [address] Dr. Sami William Hemoglobin (Bld) [Mass/Vol] 11.1 g/dL Critically low 12.0-16.0 [facility] Comment on above: Performed By: #### C BC #### [facility] [address] [place] [address] Dr. Sami William IG # 0.03 10e3/ul Normal 0.00-0.03 [facility] Comment on above: Performed By: #### C BC #### [facility] [address] [place] [address] Dr. Sami William IG % 0.4 % Normal 0.0-0.5 [facility] Comment on above: Performed By: #### C BC #### [facility] [address] [place] [address] Dr. Sami William LYMPH # 1.5 103/ul Normal 1.2-3.8 [facility] Comment on above: Performed By: #### C BC #### [facility] [address] [place] [address] Dr. Sami William Lymphocytes/100 WBC (Bld) 19.2 % Critically low 20.5-60.0 [facility] Comment on above: Performed By: #### C BC #### [facility] [address] [place] [address] Dr. Sami William MANUAL DIFF REQ NO Normal [facility] Comment on above: Performed By: #### C BC #### [facility] [address] [place] [address] Dr. Sami William MCH (RBC) [Entitic mass] 26.9 pg Normal 26.7-34.0 [facility] Comment on above: Performed By: #### C BC #### [facility] [address] [place] [address] Dr. Sami William MCHC (RBC) [Mass/Vol] 30.9 g/dL Normal 29.9-35.2 [facility] Comment on above: Performed By: #### C BC #### [facility] [address] [place] [address] Dr. Sami William MCV (RBC) [Entitic vol] 87.1 fL Normal 81.0-99.0 [facility] Comment on above: Performed By: #### C BC #### [facility] [address] [place] [address] Dr. Sami Wliliam MONO # 0.5 103/ul Normal 0.3-0.8 [facility] Comment on above: Performed By: #### C BC #### [facility] [address] [place] [address] Dr. Sami William Monocytes/100 WBC (Bld) 7.0 % Normal 1.7-12.0 [facility] Comment on above: Performed By: #### C BC #### [facility] [address] [place] [address] Dr. Sami William NEUT # 5.6 103/ul Normal 1.4-6.5 [facility] Comment on above: Performed By: #### C BC #### [facility] [address] [address] [address] Sami William Neutrophils/100 WBC (Bld) 71.9 % Normal 43.0-75.0 [facility] Comment on above: Performed By: #### C BC #### [facility] [address] [address] [address] Sami William Platelet mean volume (Bld) [Entitic vol] 12.1 fL Normal 9.5-13.5 [facility] Comment on above: Performed By: #### C BC #### [facility] [address] [address] [address] Sami William PLT 213 103/ul Normal 150-450 [facility] Comment on above: Performed By: #### C BC #### [facility] [address] [place] [address] Dr. Sami William RBC 4.12 106/ul Critically low 4.20-5.40 [facility] Comment on above: Performed By: #### C BC #### [facility] [address] [address] [address] Sami William WBC 7.7 103/ul Normal 4.0-11.0 [facility] Comment on above: Performed By: #### C BC #### [facility] [address] [place] [address] Dr. Sami William PROF CHEM 8 (BAS METB)on Anion gap [Moles/Vol] 15.5 mmol/L Normal [facility] Comment on above: Performed By: #### T SH, FT3 #### [facility] [address] [address] [address] Sami William Calcium [Mass/Vol] 10.0 mg/dL Normal 8.5-10.1 [facility] Comment on above: Performed By: #### T SH, FT3 #### [facility] [address] [address] [address] Sami William Chloride [Moles/Vol] 105 mmol/L Normal 98-107 [facility] Comment on above: Performed By: #### T SH, FT3 #### [facility] [address] [address] [address] Sami William CO2 [Moles/Vol] 28.1 mmol/L Normal 21.0-32.0 [facility] Comment on above: Performed By: #### T SH, FT3 #### [facility] [address] [address] [address] Sami William Creatinine [Mass/Vol] 0.84 mg/dL Normal 0.55-1.02 [facility] Comment on above: Performed By: #### T SH, FT3 #### [facility] [address] [place] [address] Dr. Sami William EGFR-AF NEW ZEALANDER >60 Normal >=60 [facility] Comment on above: Performed By: #### T SH, FT3 #### [facility] [address] [place] [address] Dr. Sami William EGFR-NON AF NEW ZEALANDER >60 Normal >=60 [facility] Comment on above: Performed By: #### T SH, FT3 #### [facility] [address] [place] [address] Dr. Sami William Glucose [Mass/Vol] 114 mg/dL Critically high 74-106 [facility] Comment on above: Performed By: #### T SH, FT3 #### [facility] [address] [place] [address] Dr. Sami William Potassium [Moles/Vol] 3.6 mmol/L Normal 3.5-5.1 [facility] Comment on above: Performed By: #### T SH, FT3 #### [facility] [address] [address] [address] Sami William Sodium [Moles/Vol] 145 mmol/L Normal 136-145 [facility] Comment on above: Performed By: #### T SH, FT3 #### [facility] [address] [address] [address] Sami William Urea nitrogen [Mass/Vol] 21.0 mg/dL Critically high 7.0-18.0 [facility] Comment on above: Performed By: #### T SH, FT3 #### [facility] [address] [address] [address] Sami William Urea nitrogen/Creatinine [Mass ratio] 25.0 mg/mg Normal [facility] Comment on above: Performed By: #### T SH, FT3 #### [facility] [address] [address] [address] Sami William SED RATE WESTERGRENon 2022 SED RATE 100 mm/hr Critically high <=30 [facility] Comment on above: Performed By: #### C BC #### [facility] [address] [place] [address] Dr. Sami William URIC ACID SERUMon 10-18-2022 Urate [Mass/Vol] 9.6 mg/dL Critically high 2.6-6.0 [facility] Comment on above: Performed By: #### T , FT3 #### [facility] [address] [place] [address] Dr. Sami William CARDIAC STRESS TESTon 2022 [place] [address] CARDIAC STRESS TEST PATIENT NAME: PATRICIA BLAKE : 1950 MED REC NO: [id number] ROOM: ACCOUNT NO: [id number] ADMIT DATE: 09/17/2022 PROVIDER: Niru Carter MD DATE OF STUDY: 09/17/2022 NAME OF TEST: Lexiscan stress test. INDICATION: Chest pain. IMPRESSION: 1. We gave 0.4 mg of Lexiscan intravenously. 2. This was followed in 20 seconds by Cardiolite infusion. 3. There was no chest pain. 4. There was no ST depression. 5. It was an overall negative Lexiscan stress test. 6. Cardiolite to follow. NIRU CARTER MD [id number] Doc#: [id number] CC: Aashish Laguna Normal [facility] CARDIAC STRESS TEST [facility] [address] [place] [address] CARDIAC STRESS TEST PATIENT NAME: PATRICIA BLAKE : 1950 MED REC NO: [id number] ROOM: ACCOUNT NO: [id number] ADMIT DATE: 09/17/2022 PROVIDER: Kevin Dangelo DATE OF STUDY: 09/17/2022 Cardiovascular Diagnostics Department Ordering Provider: Niru Carter MD Primary Care Provider: Aashish Laguna MD Interpreting Physician: Kevin Dangelo MD MYOCARDIAL PERFUSION STRESS IMAGING The stress ECG results are reported separately. NUCLEAR IMAGING RESULTS: The overall quality of the study is excellent. Mild attenuation artifact was seen. There is no evidence of abnormal lung uptake. Additionally, the right ventricle appears normal. The left ventricular cavity is noted to be normal in size on stress images. There is no evidence of transient ischemic dilatation (TID) of the left ventricle. Gated SPECT imaging reveals normal myocardial thickening and wall motion with a calculated left ventricular ejection fraction (EF) of 66%. The rest images demonstrated a small perfusion abnormality of mild intensity in the lateral region(s) which is most likely due to artifact. On stress imaging, a small perfusion abnormality of mild intensity was noted in the anterior region(s) which is most likely due to artifact. IMPRESSION: 1. Largely normal myocardial perfusion imaging with soft tissue artifact but without evidence of significant myocardial ischemia or infarction. 2. Global left ventricular systolic function was normal without regional wall motion abnormalities. Overall these results are most consistent with a low risk for significant coronary artery disease. KEVIN DANGELO EARL/[id number] Doc#: Unknown CC: Aashish Carter MD Normal [facility] Stress test, lexiscanon 09-08 Kevin Dangelo MD - 09/18/2022 10:17 AM EST [facility] [address] [place] [address] CARDIAC STRESS TEST PATIENT NAME: PATRICIA BLAKE : 1950 MED REC NO: [id number] ROOM: ACCOUNT NO: [id number] ADMIT DATE: 09/17/2022 PROVIDER: Kevin Dangelo DATE OF STUDY: 09/17/2022 Cardiovascular Diagnostics Department Ordering Provider: Niru Carter MD Primary Care Provider: Aashish Laguna MD Interpreting Physician: Kevin Dangelo MD MYOCARDIAL PERFUSION STRESS IMAGING The stress ECG results are reported separately. NUCLEAR IMAGING RESULTS: The overall quality of the study is excellent. Mild attenuation artifact was seen. There is no evidence of abnormal lung uptake. Additionally, the right ventricle appears normal. The left ventricular cavity is noted to be normal in size on stress images. There is no evidence of transient ischemic dilatation (TID) of the left ventricle. Gated SPECT imaging reveals normal myocardial thickening and wall motion with a calculated left ventricular ejection fraction (EF) of 66%. The rest images demonstrated a small perfusion abnormality of mild intensity in the lateral region(s) which is most likely due to artifact. On stress imaging, a small perfusion abnormality of mild intensity was noted in the anterior region(s) which is most likely due to artifact. IMPRESSION: 1. Largely normal myocardial perfusion imaging with soft tissue artifact but without evidence of significant myocardial ischemia or infarction. 2. Global left ventricular systolic function was normal without regional wall motion abnormalities. Overall these results are most consistent with a low risk for significant coronary artery disease. KEVIN DANGELO EARL/IGNACIO_RESHMAIT Doc#: Unknown CC: Aashish Carter MD [facility] [employer] Phone: Stress test, lexiscanOrdered By: Kevin Dangelo on 09-18-2022 [employer] Phone: NM MYOCARDIAL SPECT REST EXE RCISE OR RXon 09-17-2022 NM MYOCARDIAL SPECT REST EXERCISE OR RX Radiology exam is complete. No Radiologist dictation. Please follow up with ordering provider. Final result Normal [facility] No Panel Informationon 09-17 Radiology exam is complete. No Radiologist dictation. Please follow up with ordering provider. [facility] RIS CONSOLIDATED CULTURE URINEon 09-08-2022 CULTURE URINE Isolate 1 Klebsiella pneumoniae >100,000 cfu/ml of ORGANISM 1 Klebsiella pneumoniae ANTIBIOTIC M.I.C RX STATUS Ampicillin 16 R F Ampicillin/Sulbacta m 4 S F Piperacillin/Tazoba ctam <=4 S F Cefazolin <=4 S F Ceftazidime <=1 S F Ceftriaxone <=1 S F Ertapenem <=0.5 S F Imipenem <=0.25 S F Amikacin <=2 S F Gentamicin <=1 S F Tobramycin <=1 S F Ciprofloxacin <=0.25 S F Levofloxacin <=0.12 S F Nitrofurantoin 128 R F Trimethoprim/Sulfam ethoxazole <=20 S F Normal [facility] Comment on above: Performed By: #### C BC #### [facility] [address] [place] [address] Dr. Sami William BNPon 09-05-2022 Natriuretic peptide B (Bld) [Mass/Vol] 1013.0 pg/mL Critically high <=900.0 [facility] Comment on above: Performed By: #### H STROPN, LIPA, BNP, CMP #### [facility] [address] [place] [address] Dr. Sami William CBC AUTO DIFFon 09-05-2022 BASO # 0.0 103/ul Normal 0.0-0.1 [facility] Comment on above: Performed By: #### T SH, FT3 #### [facility] [address] [place] [address] Dr. Sami William Basophils/100 WBC (Bld) 0.3 % Normal 0.2-2.0 [facility] Comment on above: Performed By: #### T , FT3 #### [facility] [address] [place] [address] Dr. Sami William EO # 0.1 103/ul Normal 0.0-0.7 [facility] Comment on above: Performed By: #### T SH, FT3 #### [facility] [address] [place] [address] Dr. Sami William Eosinophils/100 WBC (Bld) 1.1 % Normal 0.9-7.0 [facility] Comment on above: Performed By: #### T SH, FT3 #### [facility] [address] [place] [address] Dr. Sami William Erythrocyte distribution width (RBC) [Ratio] 15.7 % Critically high 11.0-15.0 [facility] Comment on above: Performed By: #### T SH, FT3 #### [facility] [address] [place] [address] Dr. Sami William Hematocrit (Bld) [Volume fraction] 35.5 % Critically low 36.0-48.0 [facility] Comment on above: Performed By: #### T SH, FT3 #### [facility] [address] [place] [address] Dr. Sami William Hemoglobin (Bld) [Mass/Vol] 11.0 g/dL Critically low 12.0-16.0 [facility] Comment on above: Performed By: #### T KINA, FT3 #### [facility] [address] [place] [address] Dr. Sami William IG # 0.04 10e3/ul Critically high 0.00-0.03 [facility] Comment on above: Performed By: #### T SH, FT3 #### [facility] [address] [place] [address] Dr. Sami William IG % 0.5 % Normal 0.0-0.5 [facility] Comment on above: Performed By: #### T KINA, FT3 #### [facility] [address] [place] [address] Dr. Sami William LYMPH # 2.0 103/ul Normal 1.2-3.8 [facility] Comment on above: Performed By: #### T SH, FT3 #### [facility] [address] [place] [address] Dr. Sami William Lymphocytes/100 WBC (Bld) 27.7 % Normal 20.5-60.0 [facility] Comment on above: Performed By: #### T SH, FT3 #### [facility] [address] [place] [address] Dr. Sami William MANUAL DIFF REQ NO Normal [facility] Comment on above: Performed By: #### T SH, FT3 #### [facility] [address] [place] [address] Dr. Sami William MCH (RBC) [Entitic mass] 27.0 pg Normal 26.7-34.0 [facility] Comment on above: Performed By: #### T SH, FT3 #### [facility] [address] [place] [address] Dr. Sami William MCHC (RBC) [Mass/Vol] 31.0 g/dL Normal 29.9-35.2 [facility] Comment on above: Performed By: #### T KINA, FT3 #### [facility] [address] [place] [address] Dr. Sami William MCV (RBC) [Entitic vol] 87.2 fL Normal 81.0-99.0 [facility] Comment on above: Performed By: #### T KINA, FT3 #### [facility] [address] [place] [address] Dr. Saim William MONO # 0.4 103/ul Normal 0.3-0.8 [facility] Comment on above: Performed By: #### T KINA, FT3 #### [facility] [address] [place] [address] Dr. Sami William Monocytes/100 WBC (Bld) 5.3 % Normal 1.7-12.0 [facility] Comment on above: Performed By: #### T KINA, FT3 #### [facility] [address] [place] [address] Dr. Sami William NEUT # 4.7 103/ul Normal 1.4-6.5 [facility] Comment on above: Performed By: #### T KINA, FT3 #### [facility] [address] [place] [address] Dr. Sami William Neutrophils/100 WBC (Bld) 65.1 % Normal 43.0-75.0 [facility] Comment on above: Performed By: #### T KINA, FT3 #### [facility] [address] [place] [address] Dr. Sami William Platelet mean volume (Bld) [Entitic vol] 13.1 fL Normal 9.5-13.5 [facility] Comment on above: Performed By: #### T KINA, FT3 #### [facility] [address] [place] [address] Dr. Sami William PLT 211 103/ul Normal 150-450 [facility] Comment on above: Performed By: #### T KINA, FT3 #### [facility] [address] [place] [address] Dr. Sami William RBC 4.07 106/ul Critically low 4.20-5.40 [facility] Comment on above: Performed By: #### T KINA, FT3 #### [facility] [address] [place] [address] Dr. Sami William WBC 7.3 103/ul Normal 4.0-11.0 [facility] Comment on above: Performed By: #### T KINA, FT3 #### [facility] [address] [place] [address] Dr. Sami William ER URINE PROFILEon 2 Bilirubin Ql (U) Negative Normal NEGATIVE [facility] Comment on above: Performed By: #### C BC #### [facility] [address] [place] [address] Dr. Sami William Clarity (U) CLEAR Normal CLEAR [facility] Comment on above: Performed By: #### C BC #### [facility] [address] [place] [address] Dr. Sami William Color (U) LT. YELLOW Normal YELLOW [facility] Comment on above: Performed By: #### C BC #### [facility] [address] [place] [address] Dr. Sami William ERUAMBROSED A micrscopic examination will be performed if indicated. Normal [facility] Comment on above: Performed By: #### C BC #### [facility] [address] [place] [address] Dr. Sami William Glucose Ql (U) Negative Normal NEGATIVE [facility] Comment on above: Performed By: #### C BC #### [facility] [address] [place] [address] Dr. Sami William Hemoglobin Ql (U) Negative Normal NEGATIVE [facility] Comment on above: Performed By: #### C BC #### [facility] [address] [place] [address] Dr. Sami William Ketones Ql (U) Negative Normal NEGATIVE [facility] Comment on above: Performed By: #### C BC #### [facility] [address] [place] [address] Dr. Sami William LEUKOCYTES MODERATE Abnormal NEGATIVE [facility] Comment on above: Performed By: #### C BC #### [facility] [address] [place] [address] Dr. Sami William Nitrite Ql (U) Positive Abnormal NEGATIVE [facility] Comment on above: Performed By: #### C BC #### [facility] [address] [place] [address] Dr. Sami William pH (U) 6.5 [pH] Normal 5-9 [facility] Comment on above: Performed By: #### C BC #### [facility] [address] [place] [address] Dr. Sami William SPEC GRAVITY 1.010 Normal 1.005-<=1.02 5 [facility] Comment on above: Performed By: #### C BC #### [facility] [address] [place] [address] Dr. Sami William UA PROTEIN Negative Normal NEGATIVE/ TRACE [facility] Comment on above: Performed By: #### C BC #### [facility] [address] [place] [address] Dr. Sami William UR MICRO IND INDICATED Normal [facility] Comment on above: Performed By: #### C BC #### [facility] [address] [place] [address] Dr. Sami William Urobilinogen Qn (U) 0.2 {Sunni'U}/dL Normal 0.2 - 1. 0 [facility] Comment on above: Performed By: #### C BC #### [facility] [address] [place] [address] Dr. Sami William LIPASEon 09-05-2022 Lipase [Catalytic activity/Vol] 121.0 U/L Normal 73.0-393.0 [facility] Comment on above: Performed By: #### H STROPN, LIPA, BNP, CMP #### [facility] [address] [place] [address] Dr. Sami William PROF 14(COMP METB)on 022 Albumin [Mass/Vol] 3.7 g/dL Normal 3.4-5.0 [facility] Comment on above: Performed By: #### H STROPN, LIPA, BNP, CMP #### [facility] [address] [place] [address] Dr. Sami William Albumin/Globulin [Mass ratio] 0.9 {ratio} Normal [facility] Comment on above: Performed By: #### H STROPN, LIPA, BNP, CMP #### [facility] [address] [place] [address] Dr. Sami William ALP [Catalytic activity/Vol] 73 U/L Normal 46-116 [facility] Comment on above: Performed By: #### H STROPN, LIPA, BNP, CMP #### [facility] [address] [place] [address] Dr. Sami iWlliam ALT [Catalytic activity/Vol] 23 U/L Normal 14-59 [facility] Comment on above: Performed By: #### H STROPN, LIPA, BNP, CMP #### [facility] [address] [place] [address] Dr. Sami William Anion gap [Moles/Vol] 16.4 mmol/L Normal [facility] Comment on above: Performed By: #### H STROPN, LIPA, BNP, CMP #### [facility] [address] [place] [address] Dr. Sami William AST [Catalytic activity/Vol] 23 U/L Normal 15-37 [facility] Comment on above: Performed By: #### H STROPN, LIPA, BNP, CMP #### [facility] [address] [place] [address] Dr. Sami William Bilirubin [Mass/Vol] 0.3 mg/dL Normal 0.2-1.0 [facility] Comment on above: Performed By: #### H STROPN, LIPA, BNP, CMP #### [facility] [address] [address] [address] Sami William Calcium [Mass/Vol] 9.4 mg/dL Normal 8.5-10.1 [facility] Comment on above: Performed By: #### H STROPN, LIPA, BNP, CMP #### [facility] [address] [place] [address] Dr. Sami William Chloride [Moles/Vol] 102 mmol/L Normal 98-107 [facility] Comment on above: Performed By: #### H STROPN, LIPA, BNP, CMP #### [facility] [address] [place] [address] Dr. Sami William CO2 [Moles/Vol] 28.5 mmol/L Normal 21.0-32.0 [facility] Comment on above: Performed By: #### H STROPN, LIPA, BNP, CMP #### [facility] [address] [place] [address] Dr. Sami William Creatinine [Mass/Vol] 1.07 mg/dL Critically high 0.55-1.02 [facility] Comment on above: Performed By: #### H STROPN, LIPA, BNP, CMP #### [facility] [address] [place] [address] Dr. Sami William EGFR-AF NEW ZEALANDER >60 Normal >=60 [facility] Comment on above: Performed By: #### H STROPN, LIPA, BNP, CMP #### [facility] [address] [place] [address] Dr. Sami William EGFR-NON AF NEW ZEALANDER 50 mL/min/1.73m2 Critically low >=60 [facility] Comment on above: Performed By: #### H STROPN, LIPA, BNP, CMP #### [facility] [address] [place] [address] Dr. Sami William Globulin (S) [Mass/Vol] 3.9 g/dL Normal [facility] Comment on above: Performed By: #### H STROPN, LIPA, BNP, CMP #### [facility] [address] [address] [address] Sami William Glucose [Mass/Vol] 166 mg/dL Critically high 74-106 [facility] Comment on above: Performed By: #### H STROPN, LIPA, BNP, CMP #### [facility] [address] [address] [address] Sami William Potassium [Moles/Vol] 3.9 mmol/L Normal 3.5-5.1 [facility] Comment on above: Performed By: #### H STROPN, LIPA, BNP, CMP #### [facility] [address] [address] [address] Sami William Protein [Mass/Vol] 7.6 g/dL Normal 6.4-8.2 [facility] Comment on above: Performed By: #### H STROPN, LIPA, BNP, CMP #### [facility] [address] [address] [address] Sami William Sodium [Moles/Vol] 143 mmol/L Normal 136-145 [facility] Comment on above: Performed By: #### H STROPN, LIPA, BNP, CMP #### [facility] [address] [address] [address] Sami William Urea nitrogen [Mass/Vol] 21.0 mg/dL Critically high 7.0-18.0 [facility] Comment on above: Performed By: #### H STROPN, LIPA, BNP, CMP #### [facility] [address] [address] [address] Sami William Urea nitrogen/Creatinine [Mass ratio] 19.6 mg/mg Normal [facility] Comment on above: Performed By: #### H STROPN, LIPA, BNP, CMP #### [facility] [address] [address] [address] Sami William PROTIMEon 09-05-2022 INR Coag (PPP) [Relative time] 1.10 {INR} Normal [facility] Comment on above: Performed By: #### T , FT3 #### [facility] [address] [place] [address] Dr. Sami William INR GUIDELINES SEE BELOW Normal [facility] Comment on above: Result Comment: FANG RED INR: 2.0 - 3.0 CONDITIONS NOT LISTED BELOW 2.5 - 3.5 FOR PROSTHETIC HEART VALVE REPLACEMENT 2.5 - 3.5 RECURRENT THROMBOSIS Performed By: #### T , FT3 #### [facility] [address] [place] [address] Dr. Sami William PT Coag (PPP) [Time] 11.8 s Critically high 9.0-11.6 [facility] Comment on above: Performed By: #### T , FT3 #### [facility] [address] [place] [address] Dr. Sami William PTTon 09-05-2022 aPTT Coag (Bld) [Time] 28.1 s Normal 22.3-36.2 [facility] Comment on above: Performed By: #### T , FT3 #### [facility] [address] [place] [address] Dr. Sami William TROPONIN, HIGH SENSITIVITYon 09-05-2022 HSTROP 10.3 pg/mL Normal 4.0-51.3 [facility] Comment on above: Result Comment: CUT- OFF POINTS HAVE BEEN ESTABLISHED BASED ON THE FOURTH UNIVERSAL DEFINITIONS OF MYOCARDIAL INFARCTION. THE UPPER REFERENCE LIMIT (URL) OF TROPONIN, DEFINED THE 99TH PERCENTILE OF cTnI DISTRIBUTION IN A REFERENCE POPULATION, HAS BEEN CONFIRMED THE DECISION THRESHOLD FOR LA DIAGNOSIS. Performed By: #### H STROPN, LIPA, BNP, CMP #### [facility] [address] [place] [address] Dr. Sami William URINE MICROSCOPIC ONLYon BACTERIA LARGE Abnormal NONE SEEN [facility] Comment on above: Performed By: #### C BC #### [facility] [address] [place] [address] Dr. Sami William Bacteria identified Cx Nom (U) INDICATED Normal [facility] Comment on above: Performed By: #### C BC #### [facility] [address] [place] [address] Dr. Sami William CAST NONE SEEN Normal NONE SEEN [facility] Comment on above: Performed By: #### C BC #### [facility] [address] [place] [address] Dr. Sami William Crystals LM Nom (Urine sed) NONE SEEN Normal NONE SEEN [facility] Comment on above: Performed By: #### C BC #### [facility] [address] [place] [address] Dr. Sami William Epithelial cells LM Ql (Urine sed) FEW Abnormal NONE SEEN /RARE [facility] Comment on above: Performed By: #### C BC #### [facility] [address] [place] [address] Dr. Sami William MUCOUS NONE SEEN Normal NONE SEEN [facility] Comment on above: Performed By: #### C BC #### [facility] [address] [place] [address] Dr. Sami William RBC NONE SEEN Abnormal 0-2 [facility] Comment on above: Performed By: #### C BC #### [facility] [address] [place] [address] Dr. Sami William WBC 20-50 Abnormal NONE SEEN [facility] Comment on above: Performed By: #### C BC #### [facility] [address] [place] [address] Dr. Sami William XR CHEST 1 Von 09-05-2022 XR CHEST 1 V EXAM: XR CHEST 1 V at 1220 hours HISTORY: CHEST PAIN, UNSPECIFIED COMPARISON: 06/13/2021 TECHNIQUE: AP upright portable chest x-ray FINDINGS: The study is slightly limited secondary to the patient's body habitus. The heart is enlarged and there is some prominence of the central pulmonary vasculature. No acute infiltrate, effusion or pneumothorax is identified. The osseous structures are grossly intact. IMPRESSION: Cardiac enlargement with prominence of the central pulmonary vasculature. There is no evidence of a focal infiltrate or effusion, and the overall appearance of the chest is essentially unchanged. Electronically authenticated by: OLENA RAMON Date: 2022-09-05 12:54 Normal [facility] CBC AUTO DIFFon 08-29-2022 BASO # 0.0 103/ul Normal 0.0-0.1 [facility] Comment on above: Performed By: #### C BC #### [facility] [address] [address] [address] Sami William Basophils/100 WBC (Bld) 0.4 % Normal 0.2-2.0 [facility] Comment on above: Performed By: #### C BC #### [facility] [address] [address] [address] Sami William EO # 0.1 103/ul Normal 0.0-0.7 [facility] Comment on above: Performed By: #### C BC #### [facility] [address] [address] [address] Sami William Eosinophils/100 WBC (Bld) 1.5 % Normal 0.9-7.0 [facility] Comment on above: Performed By: #### C BC #### [facility] [address] [address] [address] Sami William Erythrocyte distribution width (RBC) [Ratio] 15.8 % Critically high 11.0-15.0 [facility] Comment on above: Performed By: #### C BC #### [facility] [address] [address] [address] Sami William Hematocrit (Bld) [Volume fraction] 35.8 % Critically low 36.0-48.0 [facility] Comment on above: Performed By: #### C BC #### [facility] [address] [address] [address] Sami William Hemoglobin (Bld) [Mass/Vol] 10.8 g/dL Critically low 12.0-16.0 [facility] Comment on above: Performed By: #### C BC #### [facility] [address] [address] [address] Sami William IG # 0.04 10e3/ul Critically high 0.00-0.03 [facility] Comment on above: Performed By: #### C BC #### [facility] [address] [place] [address] Dr. Sami William IG % 0.5 % Normal 0.0-0.5 [facility] Comment on above: Performed By: #### C BC #### [facility] [address] [place] [address] Dr. Sami William LYMPH # 2.0 103/ul Normal 1.2-3.8 [facility] Comment on above: Performed By: #### C BC #### [facility] [address] [place] [address] Dr. Sami William Lymphocytes/100 WBC (Bld) 27.1 % Normal 20.5-60.0 [facility] Comment on above: Performed By: #### C BC #### [facility] [address] [place] [address] Dr. Sami William MANUAL DIFF REQ NO Normal [facility] Comment on above: Performed By: #### C BC #### [facility] [address] [place] [address] Dr. Sami William MCH (RBC) [Entitic mass] 26.7 pg Normal 26.7-34.0 [facility] Comment on above: Performed By: #### C BC #### [facility] [address] [place] [address] Dr. Sami William MCHC (RBC) [Mass/Vol] 30.2 g/dL Normal 29.9-35.2 [facility] Comment on above: Performed By: #### C BC #### [facility] [address] [place] [address] Dr. Sami William MCV (RBC) [Entitic vol] 88.4 fL Normal 81.0-99.0 [facility] Comment on above: Performed By: #### C BC #### [facility] [address] [place] [address] Dr. Sami William MONO # 0.5 103/ul Normal 0.3-0.8 [facility] Comment on above: Performed By: #### C BC #### [facility] [address] [place] [address] Dr. Sami William Monocytes/100 WBC (Bld) 6.4 % Normal 1.7-12.0 [facility] Comment on above: Performed By: #### C BC #### [facility] [address] [place] [address] Dr. Sami William NEUT # 4.8 103/ul Normal 1.4-6.5 [facility] Comment on above: Performed By: #### C BC #### [facility] [address] [place] [address] Dr. Sami William Neutrophils/100 WBC (Bld) 64.1 % Normal 43.0-75.0 [facility] Comment on above: Performed By: #### C BC #### [facility] [address] [place] [address] Dr. Sami William Platelet mean volume (Bld) [Entitic vol] 12.8 fL Normal 9.5-13.5 [facility] Comment on above: Performed By: #### C BC #### [facility] [address] [place] [address] Dr. Sami William PLT 204 103/ul Normal 150-450 [facility] Comment on above: Performed By: #### C BC #### [facility] [address] [place] [address] Dr. Sami William RBC 4.05 106/ul Critically low 4.20-5.40 [facility] Comment on above: Performed By: #### C BC #### [facility] [address] [place] [address] Dr. Sami William WBC 7.5 103/ul Normal 4.0-11.0 [facility] Comment on above: Performed By: #### C BC #### [facility] [address] [place] [address] Dr. Sami William FREE T4on 08-29-2022 Free T4 [Mass/Vol] 0.86 ng/dL Normal 0.76-1.46 [facility] Comment on above: Performed By: #### V ITAD, FT4 #### [facility] [address] [place] [address] Dr. Sami William LIPID PROFILEon 08-29-2022 CHOL-HDL RATIO NORM SEE BELOW Normal [facility] Comment on above: Result Comment: 3.3 - 4.4 LOW RISK 4.4 - 7.1 AVERAGE RISK 7.1 - 11.0 MODERATE RISK >11.0 HIGH RISK Performed By: #### T SH, FT3 #### [facility] [address] [address] [address] Sami William Cholesterol [Mass/Vol] 109 mg/dL Normal <=200 [facility] Comment on above: Performed By: #### T SH, FT3 #### [facility] [address] [address] Dr. Sami William Cholesterol in HDL [Mass/Vol] 31 mg/dL Critically low 40-60 [facility] Comment on above: Performed By: #### T SH, FT3 #### [facility] [address] [address] [address] Sami William Cholesterol in LDL [Mass/Vol] 49.0 mg/dL Normal [facility] Comment on above: Performed By: #### T SH, FT3 #### [facility] [address] [address] [address] Sami William Cholesterol.total/Salome sterol in HDL [Mass ratio] 3.5 {ratio} Normal [facility] Comment on above: Performed By: #### T SH, FT3 #### [facility] [address] [address] [address] Sami William HDL NORMAL > or = 60 mg/dl - LOW CARDIOVASCULAR RISK <40 mg/dl - HIGH CARDIOVASCULAR RISK Normal [facility] Comment on above: Performed By: #### T SH, FT3 #### [facility] [address] [address] [address] Sami William LDL CALC NORMAL SEE BELOW Normal [facility] Comment on above: Result Comment: <100 mg/dl OPTIMAL 100 - 129 mg/dl NEAR OR ABOVE OPTIMAL 130 - 159 mg/dl BORDERLINE HIGH 160 - 189 mg/dl HIGH >190 mg/dl VERY HIGH Performed By: #### T SH, FT3 #### [facility] [address] [place] [address] Dr. Sami William Triglyceride [Mass/Vol] 145 mg/dL Normal <=150 [facility] Comment on above: Performed By: #### T , FT3 #### [facility] [address] [place] [address] Dr. Sami William VLDL CALC 29.0 mg/dL Normal [facility] Comment on above: Performed By: #### T , FT3 #### [facility] [address] [place] [address] Dr. Sami William MAGNESIUMon 08-29-2022 Magnesium [Mass/Vol] 2.1 mg/dL Normal 1.8-2.4 [facility] Comment on above: Performed By: #### T , FT3 #### [facility] [address] [place] [address] Dr. Sami William PROF 14(COMP METB)on 022 Albumin [Mass/Vol] 3.7 g/dL Normal 3.4-5.0 [facility] Comment on above: Performed By: #### T , FT3 #### [facility] [address] [place] [address] Dr. Sami William Albumin/Globulin [Mass ratio] 1.0 {ratio} Normal [facility] Comment on above: Performed By: #### T , FT3 #### [facility] [address] [place] [address] Dr. Sami William ALP [Catalytic activity/Vol] 66 U/L Normal 46-116 [facility] Comment on above: Performed By: #### T , FT3 #### [facility] [address] [place] [address] Dr. Sami William ALT [Catalytic activity/Vol] 33 U/L Normal 14-59 [facility] Comment on above: Performed By: #### T SH, FT3 #### [facility] [address] [place] [address] Dr. Sami William Anion gap [Moles/Vol] 12.1 mmol/L Normal [facility] Comment on above: Performed By: #### T SH, FT3 #### [facility] [address] [address] [address] Sami William AST [Catalytic activity/Vol] 35 U/L Normal 15-37 [facility] Comment on above: Performed By: #### T SH, FT3 #### [facility] [address] [place] [address] Dr. Sami William Bilirubin [Mass/Vol] 0.2 mg/dL Normal 0.2-1.0 [facility] Comment on above: Performed By: #### T SH, FT3 #### [facility] [address] [place] [address] Dr. Sami William Calcium [Mass/Vol] 9.4 mg/dL Normal 8.5-10.1 [facility] Comment on above: Performed By: #### T SH, FT3 #### [facility] [address] [place] [address] Dr. Sami William Chloride [Moles/Vol] 103 mmol/L Normal 98-107 [facility] Comment on above: Performed By: #### T SH, FT3 #### [facility] [address] [place] [address] Dr. Sami William CO2 [Moles/Vol] 30.9 mmol/L Normal 21.0-32.0 [facility] Comment on above: Performed By: #### T SH, FT3 #### [facility] [address] [place] [address] Dr. Sami William Creatinine [Mass/Vol] 1.18 mg/dL Critically high 0.55-1.02 [facility] Comment on above: Performed By: #### T SH, FT3 #### [facility] [address] [place] [address] Dr. Sami William EGFR-AF NEW ZEALANDER 54 mL/min/1.73m2 Critically low >=60 [facility] Comment on above: Performed By: #### T SH, FT3 #### [facility] [address] [place] [address] Dr. Sami William EGFR-NON AF NEW ZEALANDER 45 mL/min/1.73m2 Critically low >=60 [facility] Comment on above: Performed By: #### T SH, FT3 #### [facility] [address] [place] [address] Dr. Sami William Globulin (S) [Mass/Vol] 3.8 g/dL Normal [facility] Comment on above: Performed By: #### T SH, FT3 #### [facility] [address] [place] [address] Dr. Sami William Glucose [Mass/Vol] 113 mg/dL Critically high 74-106 [facility] Comment on above: Performed By: #### T SH, FT3 #### [facility] [address] [place] [address] Dr. Sami William Potassium [Moles/Vol] 4.0 mmol/L Normal 3.5-5.1 [facility] Comment on above: Performed By: #### T SH, FT3 #### [facility] [address] [place] [address] Dr. Sami William Protein [Mass/Vol] 7.5 g/dL Normal 6.4-8.2 [facility] Comment on above: Performed By: #### T SH, FT3 #### [facility] [address] [place] [address] Dr. Sami William Sodium [Moles/Vol] 142 mmol/L Normal 136-145 [facility] Comment on above: Performed By: #### T KINA, FT3 #### [facility] [address] [place] [address] Dr. Sami William Urea nitrogen [Mass/Vol] 28.0 mg/dL Critically high 7.0-18.0 [facility] Comment on above: Performed By: #### T SH, FT3 #### [facility] [address] [place] [address] Dr. Sami William Urea nitrogen/Creatinine [Mass ratio] 23.7 mg/mg Normal [facility] Comment on above: Performed By: #### T SH, FT3 #### [facility] [address] [place] [address] Dr. Smai William TSHon 08-29-2022 TSH 6.046 uIU/mL Critically high 0.358-3.740 [facility] Comment on above: Performed By: #### T SH, FT3 #### [facility] [address] [place] [address] Dr. Sami William VITAMIN D 25 OHon 08-29-2022 VIT D 25-OH 118.0 ng/mL Normal [facility] Comment on above: Performed By: #### V ITAD, FT4 #### [facility] [address] [place] [address] Dr. Sami William VIT D RANGES SEE BELOW Normal [facility] Comment on above: Result Comment: <20 ng/mL Vit D deficient 20 - <30 ng/mL Vit D insufficient 30 - 100 ng/mL Vit D sufficient >100 ng/mL Potential Toxicity Performed By: #### V ITLILIAN, FT4 #### [facility] [address] [place] [address] Dr. Sami William FREE T3on 06-17-2022 FREE T3 3.44 pg/mlL Normal 2.18-3.98 [facility] Comment on above: Performed By: #### T KINA, FT3 #### [facility] [address] [place] [address] Dr. Sami William REVERSE T3on 05-22-2022 Reverse T3, Serum 18.8 ng/dL Normal 9.2-24.1 [facility] Comment on above: Result Comment: This test was developed and its performance characteristics determined by [facility]. It has not been cleared or approved by the Food and Drug Administration. Performed By: #### C BC #### [facility] [address] [place] [address] Dr. Sami William T3, TOTAL (TRIIODOTHYRONINE) on 05-17-2022 T3, TOTAL 163 ng/dL Normal 71-180 [facility] Comment on above: Performed By: #### T 3TOTAL #### [facility] [address] [place] [address] Dr. Sami William FREE T3on 05-16-2022 FREE T3 2.81 pg/mlL Normal 2.18-3.98 [facility] Comment on above: Performed By: #### T SH, FT3 #### [facility] [address] [place] [address] Dr. Sami William FREE T4on 05-16-2022 Free T4 [Mass/Vol] 1.05 ng/dL Normal 0.76-1.46 [facility] Comment on above: Performed By: #### C BC #### [facility] [address] [address] [address] Sami William TSHon 05-16-2022 TSH 3.431 uIU/mL Normal 0.358-3.740 [facility] Comment on above: Performed By: #### T SH, FT3 #### [facility] [address] [place] [address] Dr. Sami William Ambulatory Visit Summaryon 0 02-27-2022 Ambulatory Visit Summary PATRICIA BLAKE :1950 Visit Date:02/27/2022 Ambulatory Visit Instructions Your Diagnosis OAB (overactive bladder) Tests Performed Urnls Dip Stick Auto w/o Microscopy POC 87994 Your Care Team Attending Physician - LILIAM LEW PA-C Primary Care Physician - LUZ ELENA GASCA, AASHISH Evans This Is Your Medications List Non-Formulary Medication (Chelated Iron PO) Non-Formulary Medication (Sentry senior) amlodipine (amLODIPine 5 mg Tab) apixaban (Eliquis 5 mg oral tablet) ascorbic acid (Vitamin C) aspirin (Aspir 81) atorvastatin (atorvastatin 10 mg Tab) buPROPion (buPROPion 150 mg ER Tab) calcium citrate furosemide (Lasix 20 mg Tab) gemfibrozil (gemfibrozil 600 mg Tab) isosorbide mononitrate (isosorbide mononitrate 30 mg ER Tab) liothyronine (liothyronine 5 mcg Tab) metformin (metformin 1000 mg oral tablet, extended release) metoprolol (metoprolol 25 mg ER Tab) nitroglycerin (nitroglycerin 0.4 mg sublingual Tab) Procedures Performed Cystoscopy (02/22/2021), Cystoscopy (04/24/1998), Breast reduction, Cholecystectomy, Foot, Placement of stent in cardiac conduit. Discharge Vitals Heart Rate (Peripheral) 72 Blood Pressure 137/64 Height 154.0 cm Height 154 cm Weight 102.0 kg Weight 102 kg BMI 43.01 Medications What How Much When Instructions Unchanged amlodipine (amLODIPine 5 mg Tab) By Mouth Every day Unchanged apixaban (Eliquis 5 mg oral tablet) 1 Tablets By Mouth 2 times a day Unchanged ascorbic acid (Vitamin C) Every day Unchanged aspirin (Aspir 81) By Mouth Every day Unchanged atorvastatin (atorvastatin 10 mg Tab) By Mouth Every day Unchanged buPROPion (buPROPion 150 mg ER Tab) By Mouth 2 times a day Unchanged calcium citrate By Mouth 2 times a day 315-250 mg Unchanged furosemide (Lasix 20 mg Tab) By Mouth Every day Unchanged gemfibrozil (gemfibrozil 600 mg Tab) By Mouth 2 times a day Unchanged isosorbide mononitrate (isosorbide mononitrate 30 mg ER Tab) By Mouth Once a day (in the morning) Unchanged liothyronine (liothyronine 5 mcg Tab) By Mouth Every day Unchanged metformin (metformin 1000 mg oral tablet, extended release) By Mouth Every day Unchanged metoprolol (metoprolol 25 mg ER Tab) By Mouth Every day Unchanged nitroglycerin (nitroglycerin 0.4 mg sublingual Tab) 1 Tablets Sublingual Every 5 minutes as needed for for chest pain Unchanged Non-Formulary Medication (Chelated Iron PO) Unchanged Non-Formulary Medication (Sentry senior) Test Results Urnls Dip Stick Auto w/o Microscopy POC 07668 (02/27/2022) Bilirubin Urine Dipstick - Negative Blood Urine Dipstick - Negative Glucose Urine Dipstick - Negative Ketones Urine Dipstick - Negative Leukocytes Urine Dipstick - Trace Nitrite Urine Dipstick - Negative Protein Urine Dipstick - Negative Specific [place] Urine Dipstick - 1.015 Urine Appearance Urine Dipstick - Clear Urine Color Urine Dipstick - Yellow Urobilinogen Urine Dipstick - Normal 0.2-1 EU/dl pH Urine Dipstick - 5.5 Allergies lisinopril (Swelling, Unknown) penicillins (Unknown) sulfa drugs (Unknown) Problems Ongoing - Any problem that you are currently receiving treatment for. Anticoagulated Diabetes Frequent urination Hypertension Incomplete bladder emptying Mixed incontinence Nephrolithiasis Nocturia OAB (overactive bladder) Overactive bladder Stress incontinence Urge incontinence Urinary urgency [facility] Patient Educationon 02-28-20 Patient Education Obstetrics and Gynecology Overactive Bladder, Adult Overactive bladder refers to a condition in which a person has a sudden need to pass urine. The person may leak urine if he or she cannot get to the bathroom fast enough (urinary incontinence). A person with this condition may also wake up several times in the night to go to the bathroom. Overactive bladder is associated with poor nerve signals between your bladder and your brain. Your bladder may get the signal to empty before it is full. You may also have very sensitive muscles that make your bladder squeeze too soon. These symptoms might interfere with daily work or social activities. What are the causes? This condition may be associated with or caused by: ? Urinary tract infection. ? Infection of nearby tissues, such as the prostate. ? Prostate enlargement. ? Surgery on the uterus or urethra. ? Bladder stones, inflammation, or tumors. ? Drinking too much caffeine or alcohol. ? Certain medicines, especially medicines that get rid of extra fluid in the body (diuretics). ? Muscle or nerve weakness, especially from: ? A spinal cord injury. ? Stroke. ? Multiple sclerosis. ? Parkinson's disease. ? Diabetes. ? Constipation. What increases the risk? You may be at greater risk for overactive bladder if you: ? Are an older adult. ? Smoke. ? Are going through menopause. ? Have prostate problems. ? Have a neurological disease, such as stroke, dementia, Parkinson's disease, or multiple sclerosis (MS). ? Eat or drink things that irritate the bladder. These include alcohol, spicy food, and caffeine. ? Are overweight or obese. What are the signs or symptoms? Symptoms of this condition include: ? Sudden, strong urge to urinate. ? Leaking urine. ? Urinating 8 or more times a day. ? Waking up to urinate 2 or more times a night. How is this diagnosed? Your health care provider may suspect overactive bladder based on your symptoms. He or she will diagnose this condition by: ? A physical exam and medical history. ? Blood or urine tests. You might need bladder or urine tests to help determine what is causing your overactive bladder. You might also need to see a health care provider who specializes in urinary tract problems (urologist). How is this treated? Treatment for overactive bladder depends on the cause of your condition and whether it is mild or severe. You can also make lifestyle changes at home. Options include: ? Bladder training. This may include: ? Learning to control the urge to urinate by following a schedule that directs you to urinate at regular intervals (timed voiding). ? Doing Kegel exercises to strengthen your pelvic floor muscles, which support your bladder. Toning these muscles can help you control urination, even if your bladder muscles are overactive. ? Special devices. This may include: ? Biofeedback, which uses sensors to help you become aware of your body's signals. ? Electrical stimulation, which uses electrodes placed inside the body (implanted) or outside the body. These electrodes send gentle pulses of electricity to strengthen the nerves or muscles that control the bladder. ? Women may use a plastic device that fits into the vagina and supports the bladder (pessary). ? Medicines. ? Antibiotics to treat bladder infection. ? Antispasmodics to stop the bladder from releasing urine at the wrong time. ? Tricyclic antidepressants to relax bladder muscles. ? Injections of botulinum toxin type A directly into the bladder tissue to relax bladder muscles. ? Lifestyle changes. This may include: ? Weight loss. Talk to your health care provider about weight loss methods that would work best for you. ? Diet changes. This may include reducing how much alcohol and caffeine you consume, or drinking fluids at different times of the day. ? Not smoking. Do not use any products that contain nicotine or tobacco, such as cigarettes and e-cigarettes. If you need help quitting, ask your health care provider. ? Surgery. ? A device may be implanted to help manage the nerve signals that control urination. ? An electrode may be implanted to stimulate electrical signals in the bladder. ? A procedure may be done to change the shape of the bladder. This is done only in very severe cases. Follow these instructions at home: Lifestyle ? Make any diet or lifestyle changes that are recommended by your health care provider. These may include: ? Drinking less fluid or drinking fluids at different times of the day. ? Cutting down on caffeine or alcohol. ? Doing Kegel exercises. ? Losing weight if needed. ? Eating a healthy and balanced diet to prevent constipation. This may include: ? Eating foods that are high in fiber, such as fresh fruits and vegetables, whole grains, and beans. ? Limiting foods that are high in fat and processed sugars, such as fried and sweet foods. General instructions ? Take ove (more content not included)... Normal [facility] Urology Office/Clinic Noteon 02-27-2022 Urology Office/Clinic Note Chief Complaint 4 month f/u HPI Staff Patricia is a 71 y/o female here for a 4 month f/u. Previous DX: Frequent urination, Incomplete bladder emptying, Mixed incontinence, Nocturia, OAB, Urinary urgency. Dysuria: _denies Incomplete bladder emptying: _denies Hematuria: _denies Frequency: _on lasix Urgency: _denies Nocturia: _on lasix Stream: _stady Leaking: _denies Post void dripping: _denies Wearing pads/ Depends: _denies Urge incontinence: _denies Stress incontinence: _with coughing and sneezing Incontinence without Sensory Awareness: _denies Abdominal pain: _denies Flank pain: _denies Sexual complaints: _ History of Present Illness staff HPI reviewed and agree. Review of Systems PHQ Score Initial Depression Screen Score: 0 no fever, chills, malaise, myalgia. no rash/lesions. no chest pain, palpitations, or SOB. no abdominal pain, nausea, vomiting. no unilateral calf swelling, redness, pain Physical Exam Vitals & Measurements HR: 72(Peripheral) BP: 137/64 HT: 154.0 cm HT: 154 cm WT: 102.0 kg WT: 102 kg BMI: 43.01 General: nontoxic, NAD Mouth: moist mucosa Lungs: normal respiratory effort Cardio: regular rate, good distal perfusion Abdomen: nondistended, no suprapubic distention or tenderness, no CVA tenderness Neurologic: Grossly normal Skin: No rashes or suspicious lesions Assessment/Plan 1. OAB (overactive bladder) (N32.81: Overactive bladder) UA today shows trace SUSSY but otherwise clear. no UTI sx. Pt had Botox #2 a year ago 02/26 and is not having any urinary complaints at this time. still feels it's very helpful. rare mixed incontinence. not bothersome. Pt will give our office a call when she feels that she needs another Botox injection. prefers this to a set f/u appt. Follow-up With When Contact Information LOUANN BATISTA, LILIAM Ruiz, URL [address] [place] [address] Additional Instructions: Patient Education Overactive Bladder, Adult I, Rose Amin, personally scribed for Liliam Lew PA-C on 02/27/2022 13:43:48. . Documentation recorded by the scribe Rose Amin accurately reflects the services(s) I performed and decisions made by me. Authenticated by Liliam Lew PA-C on 02/27/2022 13:50:55. Problem List/Past Medical History Ongoing Anticoagulated Diabetes Frequent urination Hypertension Incomplete bladder emptying Mixed incontinence Nephrolithiasis Nocturia OAB (overactive bladder) Overactive bladder Stress incontinence Urge incontinence Urinary urgency Historical No qualifying data Procedure/Surgical History Cystoscopy (02/22/2021), Cystoscopy (04/24/1998), Breast reduction, Cholecystectomy, Foot, Placement of stent in cardiac conduit. Medications amLODIPine 5 mg Tab, Oral, Daily Aspir 81, Oral, Daily atorvastatin 10 mg Tab, Oral, Daily buPROPion 150 mg ER Tab, Oral, BID calcium citrate, Oral, BID Chelated Iron PO Eliquis 5 mg oral tablet, 5 mg= 1 tab(s), Oral, BID gemfibrozil 600 mg Tab, Oral, BID isosorbide mononitrate 30 mg ER Tab, Oral, qAM Lasix 20 mg Tab, Oral, Daily liothyronine 5 mcg Tab, Oral, Daily metformin 1000 mg oral tablet, extended release, Oral, Daily metoprolol 25 mg ER Tab, Oral, Daily nitroglycerin 0.4 mg sublingual Tab, 0.4 mg= 1 tab(s), SubLingual, q5min, PRN [facility] Vitamin C, Daily Allergies lisinopril (Swelling, Unknown) penicillins (Unknown) sulfa drugs (Unknown) Social History Tobacco Never (less than 100 in lifetime) Tobacco Use:. Never Smokeless Tobacco Use:., 10/08/2021 Family History Family history is unknown Immunizations Vaccine Date Status Comments SARS-CoV-2 (COVID-19) mRNA-1273 vaccine 11/15/2020 Recorded 2 shot SARS-CoV-2 (COVID-19) mRNA-1273 vaccine 10/12/2020 Recorded 1st shot Lab Results Ambulatory Point of Care Results Bilirubin Urine Dipstick: Negative (02/27/22 13:16:00) Blood Urine Dipstick: Negative (02/27/22 13:16:00) Glucose Urine Dipstick: Negative (02/27/22 13:16:00) Ketones Urine Dipstick: Negative (02/27/22 13:16:00) Leukocytes Urine Dipstick: Trace (02/27/22 13:16:00) Nitrite Urine Dipstick: Negative (02/27/22 13:16:00) Protein Urine Dipstick: Negative (02/27/22 13:16:00) Specific [place] Urine Dipstick: 1.015 (02/27/22 13:16:00) Urine Appearance Urine Dipstick: Clear (02/27/22 13:16:00) Urine Color Urine Dipstick: Yellow (02/27/22 13:16:00) Urobilinogen Urine Dipstick: Normal 0.2-1 EU/dl (02/27/22 13:16:00) pH Urine Dipstick: 5.5 (02/27/22 13:16:00) Diagnostic Results Tests Reviewed: Reviewed UA. Normal [facility] Comment on above: Result Comment: Elec tronically Signed By: LILIAM LEW PA-C\.br\Date and Time Signed: 02/27/22 13:51 EDT\.br\Electronically Co-Signed By: Rose Amin\.br\Date and Time Co-Signed: 02/27/22 13:44 EDT CARDIAC CATHETERIZ[place] [address] CARDIAC CATHETERIZATION PATIENT NAME: PATRICIA BLAKE : 1950 MED REC NO: [id number] ROOM: ACCOUNT NO: [id number] ADMIT DATE: 02/12/2022 PROVIDER: Niru Carter DATE OF PROCEDURE: 02/12/2022 PROCEDURE: Successful cardioversion from atrial fibrillation to normal sinus rhythm with 100 joules. INDICATION: Atrial fibrillation. We, under the care of two RNs and a respiratory therapist, gave her propofol. After she was asleep, I cardioverted her once with 100 joules and she successfully converted to sinus rhythm. There were no complications. She awoke without difficulty and discharged. IMPRESSION: Successful cardioversion from atrial fibrillation to normal sinus rhythm with 100 joules. NIRU CARTER [id number] Doc#: [id number] CC: Normal [facility] Free T3on 11-06-2021 FT3 4.02 pg/mL Normal 2.00-4.40 [facility] Comment on above: Performed By: #### F T3, FT4, TSH #### [facility] [address] [place], [place] [id number] Free T4on 11-06-2021 Free T4 [Mass/Vol] 0.93 ng/dL Normal 0.80-1.80 [facility] Comment on above: Performed By: #### F T3, FT4, TSH #### [facility] [address] [place], [place] [id number] Q - T3 TOTALon 11-06-2021 T3, TOTAL 158 ng/dL Normal 76-181 [facility] Comment on above: Order Comment: [facility] performed at: [facility], [employer] [facility], [address] [place] [address], [address] [place] [address], [id number], [employer] Forms Developer: Jaylon Bagley MD [facility] Date/Time: [facility] Results Received Date/Time: [facility] Reported Date/Time: Performed By: #### 8 59X, [id number] #### [facility] Default [address] [place] [address] Q - T3,REVERSE,LC/MS/MSon T3 REVERSE, LC/MS/MS 15 ng/dL Normal 8-25 [facility] Comment on above: Order Comment: [facility] performed at: [facility] [employer], [address], [place], [place], , [employer] Forms Developer: Gian Collins M.D.,PhD [facility] Date/Time: [facility] Results Received Date/Time: [facility] Reported Date/Time: Result Comment: This test was developed and its analytical performance characteristics have been determined by [employer] [place], [place]. It has not been cleared or approved by the U.S. Food and Drug Administration. This assay has been validated pursuant to the CLIA regulations and is used for clinical purposes. Performed By: #### 8 59X, [id number] #### [facility] Laboratory Default [address] [place] [address] TSHon 11-06-2021 TSH 3.920 uIU/mL Normal 0.400-4.500 [facility] Orthopaedic Physician Assistant Comment on above: Performed By: #### F T3, FT4, TSH #### [facility] [address] [place], [place] [id number] Ambulatory Visit Summaryon 0 10-08-2021 Ambulatory Visit Summary PATRICIA BLAKE :1950 Visit Date:10/08/2021 Ambulatory Visit Instructions Your Diagnosis OAB (overactive bladder) Tests Performed Urnls Dip Stick Auto w/o Microscopy POC [id number] Your Care Team Attending Physician - TIN GASCA, Niru Sanchez Primary Care Physician - LUZ ELENA GASCA, AASHISH Evans This Is Your Medications List Contact prescribing physician if questions or concerns Non-Formulary Medication (Chelated Iron PO) Non-Formulary Medication (Sentry senior) amlodipine (amLODIPine 5 mg Tab) apixaban (Eliquis 5 mg oral tablet) ascorbic acid (Vitamin C) aspirin (Aspir 81) atorvastatin (atorvastatin 10 mg Tab) buPROPion (buPROPion 150 mg ER Tab) calcium citrate furosemide (Lasix 20 mg Tab) gemfibrozil (gemfibrozil 600 mg Tab) isosorbide mononitrate (isosorbide mononitrate 30 mg ER Tab) liothyronine (liothyronine 5 mcg Tab) metformin (metformin 1000 mg oral tablet, extended release) metoprolol (metoprolol 25 mg ER Tab) nitroglycerin (nitroglycerin 0.4 mg sublingual Tab) Procedures Performed Cystoscopy (02/22/2021), Cystoscopy (04/24/1998), Breast reduction, Cholecystectomy, Foot, Placement of stent in cardiac conduit. Discharge Vitals Heart Rate (Peripheral) 67 Respiratory Rate 16 Blood Pressure 124/65 Height 154 cm Height 154.0 cm Weight 102 kg Weight 102.0 kg BMI 43.01 What to do next Scheduled Follow-Up Appointments Friday 10:45 AM EDT With: TIN GASCA, Niru Sanchez Where: [facility] Office/Clinic Noteon 10-08-2021 Urology Office/Clinic Note HPI Staff 6 month follow up Previous Dx: mixed incontinence, OAB S/P botox 02/22/21 Dysuria: no Incomplete bladder emptying: no Hematuria: no Frequency: no Urgency: sudden severe Nocturia: 1x Stream: good stream Leaking: no Post void dripping: no Wearing pads/ Depends: no Urge incontinence: no Stress incontinence: mild dribbling with coughing or sneezing Incontinence without Sensory Awareness: no Abdominal pain: no Flank pain: no Sexual complaints: no History of Present Illness reviewed medical history, UA no associated fever, chills, pain or blood. Review of Systems ROS - Provider Constitutional: denies weight loss, denies hot flashes. Eyes: denies eye problems. Gastrointestinal: denies nausea, denies vomiting. Cardiovascular: denies chest pain or angina. Integumentary: no dryness Musculoskeletal: denies musculoskeletal symptoms. ENMT: denies otolaryngeal symptoms. Respiratory: no shortness of breath. Heme/Lymph: denies easy bleeding tendency, denies easy bruising tendency. Psychiatric: no confusion, no anxiety. Genitourinary: denies vaginal discharge, mild incontinence, denies dysuria, denies hematuria, denies urinary frequency, denies amenorrhea, denies menorrhagia, denies abnormal bleeding, denies pelvic pain, denies genital sores, and denies decreased libido. Physical Exam Vitals & Measurements HR: 67(Peripheral) RR: 16 BP: 124/65 HT: 154 cm HT: 154.0 cm WT: 102 kg WT: 102.0 kg BMI: 43.01 General Appearance: alert , no acute distress, well nourished, well developed female. Genitourinary: bladder nonpalpable, no flank pain. Assessment/Plan 1. OAB (overactive bladder) (N32.81: Overactive bladder) s/p botox 02-22-22. good urinary stream and patient feels she's emptying well. intermittent urinary urgency. patient does still have mild intermittent leaking with coughing and sneezes but does not need to wear pads. patient is very pleased with response from botox. Patient will return in 4 months, if symptoms return sooner patient will call for sooner appt. Overall the patient is doing quite well. She is now about 8 months status post Botox instillation and her symptoms are quite minimal. She is still happy with the result. She knows that at some point, her symptoms will recur. She will let us know if this happens prior to a scheduled 4-month visit. Follow-up With When Contact Information TIN GASCA, LOPEZ Altamirano In 4 months 02/05/[address] [place] [address]- Additional Instructions: w/ UA Patient Education COVID-19 Frequently Asked Questions I, Radha Wilson, personally scribed for Dr. Castle on 10/08/2021 10:55:41. . Documentation recorded by the scribe, Radha Wilson, accurately reflects the services(s) I performed and decisions made by me. Authenticated by Dr. Castle on 10/08/2021 10:56:59. Problem List/Past Medical History Ongoing Anticoagulated Diabetes Frequent urination Hypertension Incomplete bladder emptying Mixed incontinence Nephrolithiasis Nocturia OAB (overactive bladder) Overactive bladder Stress incontinence Urge incontinence Urinary urgency Historical No qualifying data Procedure/Surgical History Cystoscopy (02/22/2021), Cystoscopy (04/24/1998), Breast reduction, Cholecystectomy, Foot, Placement of stent in cardiac conduit. Medications amLODIPine 5 mg Tab, Oral, Daily, Not taking Aspir 81, Oral, Daily, Not taking atorvastatin 10 mg Tab, Oral, Daily buPROPion 150 mg ER Tab, Oral, BID calcium citrate, Oral, BID Chelated Iron PO Eliquis 5 mg oral tablet, 5 mg= 1 tab(s), Oral, BID gemfibrozil 600 mg Tab, Oral, BID isosorbide mononitrate 30 mg ER Tab, Oral, qAM Lasix 20 mg Tab, Oral, Daily liothyronine 5 mcg Tab, Oral, Daily metformin 1000 mg oral tablet, extended release, Oral, Daily metoprolol 25 mg ER Tab, Oral, Daily nitroglycerin 0.4 mg sublingual Tab, 0.4 mg= 1 tab(s), SubLingual, q5min, PRN Sentry senior Vitamin C, Daily Allergies lisinopril (Swelling, Unknown) penicillins (Unknown) sulfa drugs (Unknown) Social History Tobacco Never (less than 100 in lifetime) Tobacco Use:. Never Smokeless Tobacco Use:., 10/08/2021 Family History Family history is unknown Immunizations Vaccine Date Status Comments SARS-CoV-2 (COVID-19) mRNA-1273 vaccine 11/15/2020 Recorded 2 shot SARS-CoV-2 (COVID-19) mRNA-1273 vaccine 10/12/2020 Recorded 1st shot Lab Results Ambulatory Point of Care Results Bilirubin Urine Dipstick: Negative (10/08/21 10:19:00) Blood Urine Dipstick: Negative (10/08/21 10:19:00) Glucose Urine Dipstick: Negative (10/08/21 10:19:00) Ketones Urine Dipstick: Negative (10/08/21 10:19:00) Leukocytes Urine Dipstick: Negative (10/08/21 10:19:00) Nitrite Urine Dipstick: Negative (10/08/21 10:19:00) Protein Urine Dipstick: Negative (10/08/21 10:19:00) Specific [place] Urine Dipstick: 1. (more content not included)... Normal [facility] Comment on above: Result Comment: Elec tronically Signed By: Niru CASTLE MD\.br\Date and Time Signed: 10/08/21 10:57 EST\.br\Electronically Co-Signed By: Radha Wilson\.br\Date and Time Co-Signed: 10/08/21 10:55 EST CBC Auto DifferentialOrdered By: Pacheco Carter on 07-12-2021 Absolute Eos # 0.10 [facility] Work Phone: Absolute Immature Granulocyte NOT REPORTED [employer] Phone: Absolute Lymph # 1.70 [employer] Work Phone: Absolute [place] # 0.40 [facility] Work Phone: Basophils (Bld) [#/Vol] 0.00 10*3/uL [employer] Work Phone: Basophils/100 WBC (Bld) 1 % 0 - 2 % [employer] Work Phone: Differential Type YES [employer] Work Phone: Eosinophils/100 WBC (Bld) 2 % 0 - 5 % [employer] Phone: Hematocrit (Bld) [Volume fraction] 35.0 % Low 36 - 46 % [employer] Phone: Hemoglobin.gastrointest inal spec 1 Ql (Stl) 11.4 g/dL Low 12.0 - 16.0 g/dL [employer] Work Phone: Immature Granulocytes NOT REPORTED 0 % [employer] Work Phone: Interpretation and review of laboratory results Abnormal [employer] Phone: Lymphocytes/100 WBC (Bld) 25 % 15 - 40 % [employer] Phone: MCH (RBC) [Entitic mass] 26.4 pg 26 - 34 pg [employer] Work Phone: MCHC (RBC) [Mass/Vol] 32.6 g/dL 31 - 37 g/dL [employer] Work Phone: MCV (RBC) [Entitic vol] 80.9 fL 80 - 100 fL [employer] Phone: Monocytes/100 WBC (Bld) 7 % 4 - 8 % [employer] Work Phone: NRBC Automated NOT REPORTED per 100 WBC [employer] Work Phone: Platelet distribution width (Bld) [Ratio] 17.2 % High 12.1 - 15.2 % [employer] Work Phone: Platelet Estimate NOT REPORTED [employer] Phone: Platelet mean volume (Bld) [Entitic vol] NOT REPORTED 6.0 - 12.0 fL [employer] Work Phone: Platelets (Bld) [#/Vol] 187 10*3/uL [employer] Work Phone: RBC (Bld) [#/Vol] 4.33 10*6/uL 4.0 - 5.2 m/uL [employer] Phone: RBC (Bld) [#/Vol] NOT REPORTED [employer] Phone: Segmented neutrophils/100 WBC (Bld) 65 % 47 - 75 % [employer] Work Phone: Segs Absolute 4.50 [employer] Work Phone: WBC (Bld) [#/Vol] 6.8 10*3/uL [employer] Work Phone: WBC (Bld) [#/Vol] NOT REPORTED [employer] Phone: [employer] Phone: Comprehensive Metabolic Pane lOrdered By: Pacheco Carter on 07-12-2021 Albumin [Mass/Vol] 4.6 g/dL 3.5 - 5.2 g/dL [employer] Phone: Albumin/Globulin Ratio NOT REPORTED [employer] Phone: ALP (Bld) [Catalytic activity/Vol] 78 U/L 35 - 104 U/L [employer] Work Phone: ALT [Catalytic activity/Vol] 25 U/L 5 - 33 U/L [employer] Work Phone: Anion gap [Moles/Vol] 12 mmol/L 9 - 17 mmol/L [employer] Phone: AST [Catalytic activity/Vol] 28 U/L <32 [employer] Phone: Bilirubin [Mass/Vol] 0.17 mg/dL Low 0.30 - 1.20 mg/dL [employer] Phone: Calcium [Mass/Vol] 10.4 mg/dL 8.6 - 10. 4 mg/dL [employer] Phone: Chloride [Moles/Vol] 103 mmol/L 98 - 10 7 mmol/L [employer] Phone: CO2 [Moles/Vol] 26 mmol/L 20 - 31 mmol/L [employer] Phone: Creatinine [Mass/Vol] 0.89 mg/dL 0.50 - 0.90 mg/dL [employer] Phone: Free PSA/Total PSA [Mass fraction] 7.5 g/dL 6.4 - 8.3 g/dL [employer] Phone: GFR >60 >60 mL/min [employer] Phone: GFR Non- >60 >60 mL/min [employer] Phone: GFR/1.73 sq M.predicted MDRD (S/P/Bld) [Vol rate/Area] [employer] Phone: Comment on above: Average GFR for 70 o r more years old: 75 mL/min/1.73sq m Chronic Kidney Disease: <60 mL/min/1.73sq m Kidney failure: <15 mL/min/1.73sq m eGFR calculated using average adult body mass. Additional eGFR calculator available at: http://www.[employer]/multiple_crcl_2012.htm GFR/1.73 sq M.predicted MDRD (S/P/Bld) [Vol rate/Area] NOT REPORTED [employer] Phone: Glucose [Mass/Vol] 109 mg/dL High 70 - 99 mg/dL [employer] Phone: Interpretation and review of laboratory results Abnormal [employer] Phone: Potassium [Moles/Vol] 4.3 mmol/L 3.7 - 5.3 mmol/L [employer] Phone: Sodium [Moles/Vol] 141 mmol/L 135 - 144 mmol/L [employer] Phone: Urea nitrogen (BldV) [Mass/Vol] 21 mg/dL 8 - 23 mg/dL [employer] Phone: Urea nitrogen/Creatinine (Bld) [Mass ratio] 24 High [employer] Phone: No Panel InformationOrdered By: Pacheco Carter on 07-12-2021 [employer] Phone: TSH with ReflexOrdered By: Lucia Carter on 07-12-2021 TSH Qn 4.58 m[IU]/L [employer] Phone: EKG 12 LeadOrdered By: Pacheco Carter on 06-11-2021 Atrial Rate 101 BPM [employer] Phone: Q-T Interval 348 ms [employer] Phone: QRS Duration 88 ms [employer] Phone: QTc Calculation (Bazett) 475 ms [employer] Phone: R Holstein 76 degrees [employer] Phone: T Holstein 67 degrees [employer] Phone: Ventricular Rate 112 BPM [employer] Phone: Atrial fibrillation with rapid ventricular response Abnormal ECG When compared with ECG of 17-MAY-2019 09:24, Atrial fibrillation has replaced Sinus rhythm Vent. rate has increased BY 45 BPM [employer] Phone: Dario, pn Incoming Ekg Results From [facility] - 06/11/2021 4:17 PM EDT Atrial fibrillation with rapid ventricular response Abnormal ECG When compared with ECG of 17-MAY-2019 09:24, Atrial fibrillation has replaced Sinus rhythm Vent. rate has increased BY 45 BPM [employer] Phone: [employer] Phone: Atrial Rate 73 BPM [employer] Phone: P Holstein 74 degrees [employer] Phone: P-R Interval 164 ms [employer] Phone: Q-T Interval 384 ms [employer] Phone: QRS Duration 88 ms [employer] Phone: QTc Calculation (Bazett) 423 ms [employer] Phone: R Holstein 73 degrees [employer] Phone: T Holstein 72 degrees [employer] Phone: Ventricular Rate 73 BPM [employer] Work Phone: Poor data quality, interpretation may be adversely affected Normal sinus rhythm Cannot rule out Anterior infarct , age undetermined Abnormal ECG When compared with ECG of 11-JUN-2021 10:00, (unconfirmed) Sinus rhythm has replaced Atrial fibrillation Vent. rate has decreased BY 39 BPM [employer] Phone: Dario, pn Incoming Ekg Results From [facility] - 06/11/2021 4:17 PM EDT Poor data quality, interpretation may be adversely affected Normal sinus rhythm Cannot rule out Anterior infarct , age undetermined Abnormal ECG When compared with ECG of 11-JUN-2021 10:00, (unconfirmed) Sinus rhythm has replaced Atrial fibrillation Vent. rate has decreased BY 39 BPM [employer] Phone: [employer] Phone: Ambulatory Clinical Summaryo n 03-26-2021 Ambulatory Clinical Summary {[id number] [facility] Patient Educationon 03-26-20 21 Patient Education Nutrition Calorie Counting for Weight Loss Calories are units of energy. Your body needs a certain amount of calories from food to keep you going throughout the day. When you eat more calories than your body needs, your body stores the extra calories as fat. When you eat fewer calories than your body needs, your body caldwell fat to get the energy it needs. Calorie counting means keeping track of how many calories you eat and drink each day. Calorie counting can be helpful if you need to lose weight. If you make sure to eat fewer calories than your body needs, you should lose weight. Ask your health care provider what a healthy weight is for you. For calorie counting to work, you will need to eat the right number of calories in a day in order to lose a healthy amount of weight per week. A dietitian can help you determine how many calories you need in a day and will give you suggestions on how to reach your calorie goal. ? A healthy amount of weight to lose per week is usually 1?2 lb (0.5?0.9 kg). This usually means that your daily calorie intake should be reduced by 500?750 calories. ? Eating 1,200 ? 1,500 calories per day can help most women lose weight. ? Eating 1,500 ? 1,800 calories per day can help most men lose weight. What is my plan? My goal is to have calories per day. If I have this many calories per day, I should lose around pounds per week. What do I need to know about calorie counting? In order to meet your daily calorie goal, you will need to: ? Find out how many calories are in each food you would like to eat. Try to do this before you eat. ? Decide how much of the food you plan to eat. ? Write down what you ate and how many calories it had. Doing this is called keeping a food log. To successfully lose weight, it is important to balance calorie counting with a healthy lifestyle that includes regular activity. Aim for 150 minutes of moderate exercise (such as walking) or 75 minutes of vigorous exercise (such as running) each week. Where do I find calorie information? The number of calories in a food can be found on a Nutrition Facts label. If a food does not have a Nutrition Facts label, try to look up the calories online or ask your dietitian for help. Remember that calories are listed per serving. If you choose to have more than one serving of a food, you will have to multiply the calories per serving by the amount of servings you plan to eat. For example, the label on a package of bread might say that a serving size is 1 slice and that there are 90 calories in a serving. If you eat 1 slice, you will have eaten 90 calories. If you eat 2 slices, you will have eaten 180 calories. How do I keep a food log? Immediately after each meal, record the following information in your food log: ? What you ate. Don't forget to include toppings, sauces, and other extras on the food. ? How much you ate. This can be measured in cups, ounces, or number of items. ? How many calories each food and drink had. ? The total number of calories in the meal. Keep your food log near you, such as in a small notebook in your pocket, or use a mobile lilly or website. Some programs will calculate calories for you and show you how many calories you have left for the day to meet your goal. What are some calorie counting tips? ? Use your calories on foods and drinks that will fill you up and not leave you hungry: ? Some examples of foods that fill you up are nuts and nut butters, vegetables, lean proteins, and high-fiber foods like whole grains. High-fiber foods are foods with more than 5 g fiber per serving. ? Drinks such as sodas, specialty coffee drinks, alcohol, and juices have a lot of calories, yet do not fill you up. ? Eat nutritious foods and avoid empty calories. Empty calories are calories you get from foods or beverages that do not have many vitamins or protein, such as candy, sweets, and soda. It is better to have a nutritious high-calorie food (such as an avocado) than a food with few nutrients (such as a bag of chips). ? Know how many calories are in the foods you eat most often. This will help you calculate calorie counts faster. ? Pay attention to calories in drinks. Low-calorie drinks include water and unsweetened drinks. ? Pay attention to nutrition labels for low fat or fat free foods. These foods sometimes have the same amount of calories or more calories than the full fat versions. They also often have added sugar, starch, or salt, to make up for flavor that was removed with the fat. ? Find a way of tracking calories that works for you. Get creative. Try different apps or programs if writing down calories does not work for you. What are some portion control tips? ? Know how many calories are in a serving. This will help you know how many servings of a certain food you can have. ? Use a measuring cup to measure serving sizes. You could (more content not included)... Normal [facility] Coding Summary.on 03-01-2021 Coding Summary. [id number]+PGhlYWQ+PE1 PLZNpZ80hsQXfcY9MM7 bESI5CHLYQTHTRVR0YI E1vgFA3QPkzL9PbmnZh AlxumIBcWJ19DQw0FUT 1qTryAZfocX0fdYWnB7 r2QgXmOC67cG45ZDoiT XNbWkH8CpXdhuhpaUVy F1xaWnHdfEVoSvw+PHR hYmxlIHdpZHRoPScxMD VoOpWlsGwiBC4cWb2eJ GVyLWNvbGxhcHNlOiBj h1cpBETrFPetOP4lvHg dO7TweLL7XSPyo7d4So 48dHI+QVHsBUY5gBsbX Vcwq556AqUbw3ssACB9 sCWiNOxxVSK1E05mc7P 2VHJmFENrSNG5oVM6hY 5rgVstjdvcL0ZhlJMjE wT9AYS5bCYmyN8pzFaq rpxyrW2uEbv+H40LUF9 QRSJIHV8AIzf0Z7VqMx wvdHI+EE27EEMcHB27c INpuYGqz0fheXd9QdYy USLaBLQ3sXhxCPgif6O aNILhW20dwZXqo2W5ZM BprVxuhIIjOnBlpVM6t Y3tRDftazqfd0rlpqom Dlwyo5qelw25bO16U98 sQQieUVIgXRA1SBRtXQ MibNmddp4bqH6cNw2+I Qjhi3stv2honPs4NlAj MGPaelTguOdcFXM4x7Q pAv43V3MnoFbkj3GzKx z2wi85iOSlf8K3uFH8H VjbNBMioE0uXWcuSpM5 NLUyWuHggU37wYWhTVs bOd5pmBdzoFtcZW3cQX XkgxraNIMjoF0yKKXhm GJdxGxmWK0vBNRdwonk x541YrGkWXE3HUKynRC mT8CzrQ9pOtYkNDUcFT CcL7YcuSUyAWacE642F YknDgY6HLQbzpImE3Ft TLDdzJqjFyO0m6V7Fj4 Po4InahvgSIK1ERioCN E0HsN6IiQoKcE0C3OpL by9ZDYdqCzoKZ9gK9Il AAPkiewpnhmcaFS8ZHS tFEMfkC61aIRuMTunYy 6lm9U8l820PLEnGZVko X30Hi0cvVnbNNXazOMT zX7gdnkbv3frfzmbGeM kUHKxOTk5XGr8ACOpkL neQiJmIYS3KmB7WJR8z GMmfU3qoGbldfefrZ1h Oyc+B92nvU9fHZC9LCF 8lguyABJozwCbOX30SU 90U8PvQpbomKGraKL+P AOzubWeuDnnCP6hPfGn j5uow8GqMGksD7RmGYU mVKvpExp2RSYuNOJ9yM J1mB6eBYVqWXihm9O9s DR4J5LoecFvaa0yj8dm TKMzNYelD84aoVErf9N 0FWVfoUL2SJPpxAqkPj SluC64Jqo+PGNvbGdyb 1ZwGtexb4han9iacGz0 IjMwJSIgdmFsaWduPSJ 8z5StIb09E58eFLnuKW RoPSIxNSUiIHZhbGlnb y4plW5sYi2+PGNvbCB3 lCZ8nQ5zOCKkFiG4GJi zT445XbFguCCdQhcfw1 qes2narPs1TdIiIBImf cWdyPglUKF4e2SdBj97 T45fNJiiIZYmJNJsUHX iKDMpvZyscy5quC3mWk 8+OA8li2vyon68uZ47n HI+PCKcIUG0yFyfXRpy TRJwsX7vTNgwUkT9OLZ tRjNccI96oMIrROlcOb 4lhXcmdTsxIS7nPEGgg ktef980MsJnl5tyNDDq uXUhBMwrDBB1D35la3I 0XRNnKPEbBFI6lCN5xF 1hbGlnbjogbGVmdDsgd zOwtVgvAUvjPSqiG632 IHRvcDsnPlBhdGllbnQ sQsBnRVj2M7MaIfl1EK VmeFugPJ6qnFCoDDvjN x7rbOdlpObxBA8vNFBd sknyp128GaXmn4pfGJF jkWLkZOcnFKB9D03cg4 Y1GJWhDRXvBJP5wHQ4q T7zaAfxhifukBHbiUhj lnAabWsuMBgbULldD66 6IHRvcDsnPkJpcnRoIE RapKN0IY18UA31yKHdc 0T5eBV7V3PgCDVwegvt vsmjfHZ7JORwNPSreO4 8Th0hpOqaWv4jETTpRV Q3FZVfhUCiD9MjjN5iH sItSDHcWGYpP7EubMWk USdhG142YOnxPaM5RBV oveQmU6RzIMQkzCjhVx K8j9Z2Wm7VM5X1UH35E M87lFSuj7H3xBP5U4Td BJMkqqubsjdqwDI6NAZ xAIOwbB50Fn9qcMurTr 7yUMBgWYB5FXXgyNMsW 8JmwO1nPpQtTTYnDOZc D1UwgPZmORgmT512MSv oXwT7IKXoscIcV8OxVN UppLfbCuT8x3E2Gg2QU Vn3XD68ZF30xIUyi1C7 dVA2C1ZkUDBqplrupfv aoRN6SDRsVYUvzL14Lu 7ixYaeZy5nAMMdQSU8N CPkxSAdR4MqaU9iXrMo LLAcKLTsJ4FfyWKdDVa dS937GPznDlV2VUHwlz XdX3OfYQHtbSvvVkI2x 7N5Rq3NMUMqSP95ERN4 aXP0PP36KZ03O3BeSky vdGFibGU+PHRhYmxlIH dpZHRoPScxMDAlJyBzd OcuLN6nMs1zUHXtANNb yBylnQNuIeFgm7rrHEB gKDlsDA2zyLuuE1CmaC D1SEVvn2o9Ks08O64hV 3JvdXA+PDOlxSP6lDF8 dT7iCiFvHaY2ATlpN60 9DnQrpMVtNhcaj6nam7 takQn4ObL7BHXzrnTjb KjxKKY4n1GvOm56H14i IHdpZHRoPSIxNSUiIHZ dvHpjcb1xgV7iLo2+PG FmxHY8lJW9kU5oSqXiK xM7LQyvV021WcOlrDDy Wijsc1vyv9fypTs9GbU mJVYrzdEpnRmpSIK4v3 TfRg49T2PwmDceo1ZrX sf3ek93kGFno1B0xSF0 B1AvQKBhsckunJKvmCy cPN8oCXJslkekNXXtnA 4lAZDzE9i4XkMjKzR0K ChjM6HfdfW3UFXxvLPk CDvqZPU5D49dv6L7KQR gGDSdDUD8jEU1tB7obT lnbjogbGVmdDsgdmVyd FkhDTdbGAzdS288EPRl uLeyILGhwR2sHHNzeZW sjIfoPX2bSTPlexlgRi FKSGbaPjsLJ7jKVYViM DwvdGQ+YHEbNQB8bIfo KSooSHLboI5xLRTuK1h 7YxFvCsY6GRiqG0RvDZ VklscbOd75qU9uJgUzO iM4UVtnN6XuvcV1MKGc vGTlLRwfPCT9N26nq2W 7PWQrMOWfLQX7wWJ5aY 1hbGlnbjogbGVmdDsgd iUxsDjsUXgeFMvgZ628 BGZmxEhnSsU4WjA8ZvX 6NFn8F1AuPgc2WSRscS aoVW7mmAGgOFzwXk6lt QjheYzfBL1rQUMvxfil FJTbtK1jAAJwpJCngEh fUH3tZQZvehrfl932Ep FbHHP1CUVskGUaI0Cll Q1xRiOnVVLgKAFvW7Fj hCBpGWuyP208AWcuPhC 3RNNrdlDzM2XoOYNnxZ joCzL0n5N1Ou79XLREQ WFyczwvdGQ+PHRkIHN0 lVvjRCkuPPFxuE1oYSU gI9u5BgGxEjN6SOfvD9 HtZUErwkcjCd49rM1iS cUuGvW3TSefE2HnvdD6 RYQrlJEtZZfuTPF1Q43 mx4H2RYKhLMGeQCO3qJ T8rB1kzYeeeovaiYEsx DsgdmVydGljYWwtYWxp S531XJVlmOoaGsBsnBK sZTwvdGQ+NSSlUEH7tR inHBeeOFEdcI1fIFSyT 9i2PxHmMsD7QRmoM3Pn PTBscyoqYg19hK7xGkR bVaS9XKbvC8OdlhA3FE XkeNTjFAlyJIQ0D22wz 4R0LZQoIHTtDPU2jEZ9 vW6ikAflalxetSLlaRb gdmVydGljYWwtYWxpZ2 51LSDbcBerKn99pEUah ClrqgN4B5TlCjlvsSB+ CS06AKVcTM67vPCwlAG ry4ltmAe6JzDkNCFqUN O1mXguFIbmy8TdVPGbU 81knRVaw2Q6HHOzoLuy rSAwGwQiyFL4dG1hWCa seadup1ososhqSgdpe9 fwus13qG79E82cRZqtX HRoPSIzMCUiIHZhbGln tm6rzG2fQt7+PGNvbCB 7nLB8uI9jRyBvQqO7WE dmO085KbTojRXcMmnle 7mac1lhdVt8VeHkXVAl khGluGjfPES4n6RdUi5 4W75iKQwmOVNvMDAzAK ZfRLJdrJevlx3rfO5gK i8+VU0ac6qbbz30cS25 dHI+ENBzCED4xCayXPb fFFCbzY0gWGogYoK0TU AoPhKxhT55oAHvPDomD j5wlFkvtKalTC3uEZDe yjdsu807VmTdl7qhXQI oyWQpSEgjIQA8L02gj0 N4BFVpUGHsHHI3lGF5j A0jeAetwjlloGWvcHbf doSwmXblCWdgLYfhN92 3UKSqsBcxWwQzxDHmL5 vrvuZSAS0fAuyfmVK+P MGsDEG0cKoiLIwqLARf qF3cTZKoK0u7RzEaTvV 9FPftU3RupxI8KMBfzK CiUMZscXNPjY8dfkmcr 1asjnzvWhLkRAYgMPc0 CWb0RGOunHrtQoGoOKO 9JfV3LVR1mCDndY8inA okejvdaL7mMwb+RklOO jwvdGQ+ATBaNMW9wJwh TVncMVOqvC1cWTKuJ3f 7EkHbLrP5DGyqM3Olwr R0ORCdvXKbVMRygCELq G9tmqyyi1jysthoKpGw PGUmKXf1AUf0EZXxgJa rSdOfJJD7MaF5RPI1vD EhyL0jwDvxkgbmwH4kW yc+TVJOOjwvdGQ+PHRk XVS1uMbkFRrjSGIwfR8 iUBQoG8s3HaEiOsV3MF dmZ4VakwT6TDGofIPiH IEkhTMPzD3ldgwto1co bzzqKpLnAAFhRUl5LKn 3ESLktBwiCvJvOQO2Mt D1QHS8qIWasV4grAdwh vwjbR3mKup+WGD4QYL6 EJ69PR71V1KxVqlmdSN ibGU+PHRhYmxlIHdpZH RoPScxMDAlJyBzdHlsZ A3aOq1cMYMdDOQfgEee cHNl (more content not included)... Normal [facility] POC Glucoseon 05-19-2019 Glucose [Mass/Vol] 132 mg/dL High 65 - 99 mg/dL [facility] Interpretation and review of laboratory results Abnormal [facility] CBC Auto Differentialon Basophils (Bld) [#/Vol] 0.00 10*3/uL [place], [place] Basophils/100 WBC (Bld) 0 % 0 - 2 % [place], [place] Differential Type YES [facility] [place] Eosinophils (Bld) [#/Vol] 0.10 10*3/uL [place] Eosinophils/100 WBC (Bld) 2 % 0 - 5 % [place] Erythrocyte distribution width (RBC) [Ratio] 16.0 % High 12.1 - 15.2 % [place] Hematocrit (Bld) [Volume fraction] 33.4 % Low 36 - 46 % [place] Hemoglobin (Bld) [Mass/Vol] 10.8 g/dL Low 12 - 16 g/dL [place] Interpretation and review of laboratory results Abnormal [place] Lymphocytes (Bld) [#/Vol] 1.90 10*3/uL [place] Lymphocytes/100 WBC (Bld) 26 % 15 - 40 % [place] [facility] (RBC) [Entitic mass] 26.6 pg 26 - 34 pg [place] MCHC (RBC) [Mass/Vol] 32.4 g/dL 31 - 37 g/dL [place] MCV (RBC) [Entitic vol] 82.2 fL 80 - 100 fL [place] Monocytes (Bld) [#/Vol] 0.50 10*3/uL [place] Monocytes/100 WBC (Bld) 8 % 4 - 8 % [place] Platelet mean volume (Bld) [Entitic vol] NOT REPORTED 6 - 12 fL [place] Platelets (Bld) [#/Vol] 209 10*3/uL [place] Platelets (Bld) [#/Vol] NOT REPORTED [place] RBC (Bld) [#/Vol] 4.07 10*6/uL 4 - 5.2 m/uL [place] RBC morphology finding Nom (Bld) NOT REPORTED [place] Segmented neutrophils/100 WBC (Bld) 64 % 47 - 75 % [place] Segs Absolute 4.60 [place] WBC (Bld) [#/Vol] NOT REPORTED per 100 WBC [place] WBC (Bld) [#/Vol] 7.2 10*3/uL [place] WBC Morphology NOT REPORTED [place] Comprehensive Metabolic Pane ruiz 05-17-2019 Albumin [Mass/Vol] 4.5 g/dL 3.5 - 5.2 g/dL [place] Albumin/Globulin [Mass ratio] NOT REPORTED [place] ALP [Catalytic activity/Vol] 76 U/L 35 - 104 U/L [place] ALT [Catalytic activity/Vol] 16 U/L 5 - 33 U/L [place] Anion gap [Moles/Vol] 12 mmol/L 9 - 17 mmol/L [place] AST [Catalytic activity/Vol] 20 U/L <32 [place] Bilirubin Ql (U) 0.27 mg/dL Low 0.3 - 1.2 mg/dL [place] Bun/Cre Ratio 37 High [place] Calcium [Mass/Vol] 10.8 mg/dL High 8.6 - 10. 4 mg/dL [place] Chloride [Moles/Vol] 104 mmol/L 98 - 10 7 mmol/L [place] CO2 [Moles/Vol] 26 mmol/L 20 - 31 mmol/L [place] Creatinine [Mass/Vol] 0.78 mg/dL 0.5 - 0.9 mg/dL [place] GFR >60 >60 mL/min [place] GFR Non- >60 >60 mL/min [place] GFR/1.73 sq M predicted among non-blacks MDRD (S/P/Bld) [Vol rate/Area] NOT REPORTED [place] GFR/1.73 sq M predicted among non-blacks MDRD (S/P/Bld) [Vol rate/Area] [place] Comment on above: Average GFR for 70 o r more years old: 75 mL/min/1.73sq m Chronic Kidney Disease: <60 mL/min/1.73sq m Kidney failure: <15 mL/min/1.73sq m eGFR calculated using average adult body mass. Additional eGFR calculator available at: http://www.[employer]/multiple_crcl_2012.htm Glucose [Mass/Vol] 124 mg/dL High 70 - 99 mg/dL [place] Potassium [Moles/Vol] 4.0 mmol/L 3.7 - 5.3 mmol/L [place] Protein [Mass/Vol] 8.2 g/dL 6.4 - 8.3 g/dL [place] Sodium [Moles/Vol] 142 mmol/L 135 - 144 mmol/L [place] Urea nitrogen [Mass/Vol] 29 mg/dL High 8 - 23 mg/dL [place] Lipid Panelon 05-17-2019 Cholesterol [Mass/Vol] 112 mg/dL <200 [place] Comment on above: Cholesterol Guidelines: <200 Desirable 200-240 Borderline >240 Undesirable Cholesterol in HDL [Mass/Vol] 34 mg/dL Low >40 [place] Comment on above: HDL Guidelines: <40 Undesirable 40-59 Borderline >59 Desirable Cholesterol in LDL [Mass/Vol] 55 mg/dL 0 - 130 mg/dL [place] Comment on above: LDL Guidelines: <100 Desirable 100-129 Near to/above Desirable 130-159 Borderline >159 Undesirable Direct (measured) LDL and calculated LDL are not interchangeable tests. Cholesterol in VLDL [Mass/Vol] NOT REPORTED 1 - 30 mg/dL [place] Cholesterol.total/Salome sterol in HDL [Mass ratio] 3.3 {ratio} <5 [place] Triglyceride [Mass/Vol] 113 mg/dL <150 [place] Comment on above: Triglyceride Guidelines: <150 Desirable 150-199 Borderline 200-499 High >499 Very high Based on AHA Guidelines for fasting triglyceride, June 2012. Otheron 05-17-2019 Interpretation and review of laboratory results Abnormal [place] Immature granulocytes (Bld) [#/Vol] NOT REPORTED [place] Patient Fasting?on 9 Patient Fasting? yes [place] Vital Signs Date Time Vital Sign Value Performing Clinician Facility 10-26-2024 14:32-0500 Body height 151.8 cm Aashish Laguna MD Work Phone: [facility] 10-26-2024 14:32-0500 Body mass index (BMI) [Ratio] 40.96 kg/m2 Aashish Laguna MD Work Phone: [facility] 10-26-2024 14:32-0500 Body weight 94.35 kg Aashish Laguna MD Work Phone: [facility] 08-23-2024 13:34-0500 Body height 148.6 cm Angel Russ DO Work Phone: [facility] 08-23-2024 13:34-0500 Body mass index (BMI) [Ratio] 42.73 kg/m2 Angel Russ DO Work Phone: [facility] 08-23-2024 13:34-0500 Body weight 94.35 kg Angel Russ DO Work Phone: [facility] 08-23-2024 13:34-0500 Diastolic blood pressure 78 mm[Hg] Angel Russ DO Work Phone: [facility] 08-23-2024 13:34-0500 Systolic blood pressure 134 mm[Hg] Angel Russ DO Work Phone: [facility] 07-21-2024 14:25-0500 Body height 151.8 cm Aashish Laguna MD Work Phone: [facility] 07-21-2024 14:25-0500 Body mass index (BMI) [Ratio] 43.13 kg/m2 Aashish Laguna MD Work Phone: [facility] 07-21-2024 14:25-0500 Body weight 99.34 kg Aashish Laguna MD Work Phone: [facility] 07-21-2024 14:25-0500 Diastolic blood pressure 78 mm[Hg] Aashish Laguna MD Work Phone: [facility] 07-21-2024 14:25-0500 Heart rate 82 /min Aashish Laguna MD Work Phone: [facility] 07-21-2024 14:25-0500 SaO2% (BldA) [Mass fraction] 98 % Aashish Laguna MD Work Phone: [facility] 07-21-2024 14:25-0500 Systolic blood pressure 126 mm[Hg] Aashish Laguna MD Work Phone: [facility] 05-12-2024 14:21-0400 Body height 151.8 cm Aashish Laguna MD Work Phone: [facility] 05-12-2024 14:21-0400 Body mass index (BMI) [Ratio] 43.13 kg/m2 Aashish Laguna MD Work Phone: [facility] 05-12-2024 14:21-0400 Body weight 99.34 kg Aashish Laguna MD Work Phone: [facility] 05-04-2024 14:29-0400 Body height 151.8 cm Aashish Laguna MD Work Phone: [facility] 05-04-2024 14:29-0400 Body mass index (BMI) [Ratio] 43.13 kg/m2 Aashish Laguna MD Work Phone: [facility] 05-04-2024 14:29-0400 Body weight 99.34 kg Aashish Laguna MD Work Phone: [facility] 10-15-2023 13:56-0500 Body height 151.8 cm Aashish Laguna MD Work Phone: [facility] 10-15-2023 13:56-0500 Body mass index (BMI) [Ratio] 41.75 kg/m2 Aashish Laguna MD Work Phone: [facility] 10-15-2023 13:56-0500 Body weight 96.16 kg Aashish Laguna MD Work Phone: [facility] 09-17-2022 10:22-0500 Diastolic blood pressure 77 mm[Hg] Mwh [facility] 09-17-2022 10:22-0500 Heart rate 102 /min Mw Rm [facility] 09-17-2022 10:22-0500 Systolic blood pressure 130 mm[Hg] [facility] [employer] [facility] 02-27-2022 13:23-0400 Blood Pressure Location LILIAM LEW [facility] 02-27-2022 13:23-0400 Diastolic blood pressure 64 mm[Hg] LILIAM LEW [facility] 02-27-2022 13:23-0400 Heart rate 72 /min LILIAM LEW [facility] 02-27-2022 13:23-0400 Systolic blood pressure 137 mm[Hg] LILIAM LEW [facility] 02-12-2022 11:14-0400 Diastolic blood pressure 89 mm[Hg] [facility] 02-12-2022 11:14-0400 Heart rate 67 /min [facility]m [facility] 02-12-2022 11:14-0400 Respiratory rate 18 /min Mw [facility] 02-12-2022 11:14-0400 SaO2% (BldA) [Mass fraction] 98 % Mw [facility] 02-12-2022 11:14-0400 Systolic blood pressure 129 mm[Hg] [facility] R[facility] 06-11-2021 11:42-0400 Diastolic blood pressure 76 mm[Hg] [facility] Work Phone: 06-11-2021 11:42-0400 Heart rate 83 /min Mw [facility] Work Phone: 06-11-2021 11:42-0400 Respiratory rate 21 /min [facility] Work Phone: 06-11-2021 11:42-0400 SaO2% (BldA) [Mass fraction] 96 [facility] Work Phone: 06-11-2021 11:42-0400 Systolic blood pressure 123 mm[Hg] [facility] Work Phone: 05-19-2019 10:52-0400 BP Diastolic 55 mm[Hg] Niru Carter [facility] 05-19-2019 10:52-0400 BP Systolic 122 mm[Hg] Niru Carter [facility] 05-19-2019 10:52-0400 Pulse (Heart Rate) 60 /min Niru Carter [facility] 05-19-2019 10:52-0400 Pulse Oximetry 92 % Niru Carter [facility] 05-19-2019 06:25-0400 BMI (Body Mass Index) 43.61 kg/m2 [facility] 06:25-0400 Body weight 104.69 kg Niru Carter [facility] 05-19-2019 06:25-0400 Height 154.9 cm [facility]2019 06:25-0400 Respiratory Rate 16 /min Niru Carter [facility] 05-19-2019 06:25-0400 Body Temperature 97.9 [degF] [facility] Encounter Date Encounter Type Care Provider Facility Start: 11-25-2024 End: 11-25-2024 Patient encounter procedure Aashish Laguna MD Work Phone: [facility] Work Phone: Start: 11-25-2024 End: 11-25-2024 ambulatory Aashish Laguna MD Work Phone: [facility] Work Phone: Start: 11-09-2024 End: 11-09-2024 Bamboo flowsheet Aashish Laguna MD Work Phone: [facility] Start: 11-09-2024 End: 11-09-2024 Bamboo flowsheet Aashish Laguna MD Work Phone: [facility] Start: 11-09-2024 End: 11-09-2024 ambulatory AASHISH LAGUNA Not Available Start: 10-26-2024 End: 10-26-2024 ambulatory AASHISH LAGUNA Not Available Start: 10-26-2024 End: 10-26-2024 Bamboo flowsheet Aashish Laguna MD Work Phone: [facility] Start: 10-26-2024 End: 10-26-2024 Bamboo flowsheet Aashish Laguna MD Work Phone: [facility] Start: 10-26-2024 End: 10-26-2024 Office outpatient visit 25 minutes Aashish Laguna MD Work Phone: [facility] Comment on above: Acquired hypothyroid ism (CMS/HCC) (Primary Dx); Chronic fatigue; ESS (euthyroid sick syndrome); Morbid obesity (CMS/HCC); BMI 40.0-44.9, adult (CMS/HCC) Start: 08-23-2024 End: 08-23-2024 Office outpatient visit 25 minutes Angel Russ DO Work Phone: [facility] Comment on above: Encounter for gyneco logical examination without abnormal finding (Primary Dx); Breast cancer screening by mammogram; Omphalitis; Chronic dermatitis; Chronic vulvitis Start: 08-23-2024 End: 08-23-2024 Patient encounter status Angel Russ DO Work Phone: [facility] Start: 08-23-2024 End: 08-23-2024 ambulatory ANGEL RUSS Not Available Start: 07-21-2024 End: 07-21-2024 Office outpatient visit 25 minutes Aashish Laguna MD Work Phone: [facility] Comment on above: Essential hypertensi on; Stage 3b chronic kidney disease (HCC) (CMS/HCC); Type 2 diabetes mellitus with stage 3b chronic kidney disease, without long-term current use of insulin (HCC) (CMS/HCC); Microalbuminuric diabetic nephropathy (CMS/HCC); Hyperlipidemia, mixed (CMS/HCC); Coronary artery disease involving [place] coronary artery of [place] heart without angina pectoris (CMS/HCC); Pulmonary hypertension (CMS/HCC); Morbid obesity (CMS/HCC); BMI 40.0-44.9, adult (CMS/HCC) Start: 07-21-2024 End: 07-21-2024 ambulatory AASHISH LAGUNA Not Available Start: 07-21-2024 End: 07-21-2024 Bamboo flowsheet Aashish Laguna MD Work Phone: [facility] Start: 07-21-2024 End: 07-21-2024 Bamboo flowsheet Aashish Laguna MD Work Phone: [facility] Start: 05-12-2024 End: 05-12-2024 Office outpatient visit 25 minutes Aashish Laguna MD Work Phone: [facility] Comment on above: Recurrent major depr essive disorder, in partial remission (HCC) (CMS/HCC); Chronic post-traumatic stress disorder (PTSD) (CMS/HCC); Mild cognitive impairment with memory loss; Morbid obesity (CMS/HCC); BMI 40.0-44.9, adult (CMS/HCC); Hyperuricemia; Acute idiopathic gout involving toe, unspecified laterality Start: 05-12-2024 End: 05-12-2024 ambulatory AASHISH LAGUNA Not Available Start: 05-12-2024 End: 05-12-2024 Bamboo flowsheet Aashish Laguna MD Work Phone: [facility] Start: 05-12-2024 End: 05-12-2024 Bamboo flowsheet Aashish Laguna MD Work Phone: [facility] Start: 05-04-2024 End: 05-04-2024 Office outpatient visit 40 minutes Aashish Laguna MD Work Phone: [facility] Comment on above: Acquired hypothyroid ism (CMS/HCC) (Primary Dx); ESS (euthyroid sick syndrome); Chronic fatigue; Morbid obesity (CMS/HCC); BMI 40.0-44.9, adult (CMS/HCC); Dyspnea on exertion; Pulmonary hypertension (CMS/HCC); Paroxysmal atrial fibrillation (CMS/HCC); Stage 3b chronic kidney disease (HCC) (CMS/HCC); Iron deficiency anemia, unspecified iron deficiency anemia type; Chronic venous insufficiency of lower extremity Start: 05-04-2024 End: 05-04-2024 ambulatory AASHISH LAGUNA Not Available Start: 05-04-2024 End: 05-04-2024 Bamboo flowsheet Aashish Laguna MD Work Phone: [facility] Start: 05-04-2024 End: 05-04-2024 Bamboo flowsheet Aashish Laguna MD Work Phone: [facility] Start: 04-28-2024 End: 04-28-2024 Telephone encounter Aashish Laguna MD Work Phone: [facility] Start: 02-05-2024 End: 02-05-2024 ambulatory AASHISH LAGUNA Not Available Start: 12-02-2023 End: 12-02-2023 ambulatory AASHISH LAGUNA Not Available Start: 10-15-2023 Chart abstracting Aasihsh dye MD Work Phone: [facility] Start: 10-15-2023 End: 10-15-2023 Office outpatient visit 25 minutes Aashish Laguna MD Work Phone: [facility] Comment on above: Mild cognitive impai rment with memory loss (Primary Dx); ESS (euthyroid sick syndrome); Acquired hypothyroidism (CMS/HCC); Chronic fatigue syndrome; Recurrent major depressive disorder, in partial remission (HCC) ([facility]/HCC); Chronic post-traumatic stress disorder (PTSD) ([facility]/HCC) Start: 10-02-2023 End: 10-02-2023 ambulatory MD Aashish Laguna Work Phone: [facility] Work Phone: Start: 10-02-2023 End: 10-02-2023 Patient encounter procedure MD Aashish Laguna Work Phone: [facility] Work Phone: Start: 12-11-[address] AASHISH LAGUNA . Fac ility:[facility] Start: 11-29-2022 End: 11-29-2022 ambulatory MD Aashish Laguna Work Phone: [facility] Work Phone: Start: 11-29-2022 End: 11-29-2022 Patient encounter procedure MD Aashish Laguna Work Phone: [facility] Work Phone: Start: 11-25-2022 End: 11-25-2022 ambulatory MD Aashish Laguna Work Phone: [facility] Work Phone: Start: 11-25-2022 End: 11-25-2022 Patient encounter procedure MD Aashish Laguna Work Phone: [facility] Work Phone: Start: 11-04-2022 End: 11-05-[address] AASHISH LAGUNA . Facility:[facility] Start: 10-22-[address] AASHISH LAGUNA . Fac ility:[facility] Start: 10-18-2022 End: 10-19-[address] AASHISH LAGUNA . Facility:[facility] Start: 10-15-2022 End: 10-15-[address] AASHISH LAGUNA . Facility:[facility] Start: 10-14-2022 End: 10-14-2022 ambulatory MD Aashish Laguna Work Phone: [facility] Work Phone: Start: 10-14-2022 End: 10-14-2022 Patient encounter procedure MD Aashish Laguna Work Phone: [facility] Work Phone: Start: 09-17-2022 End: 09-20-2022 [facility] Start: 09-17-2022 End: 09-19-2022 Subsequent hospital visit by physician Mw Stress [facility] Comment on above: Arrived Abnormal EKG; Chest pain, unspecified type Start: 09-05-2022 End: 09-05-[address] NORA TREVINO Facility:[facility] Start: 08-29-2022 End: 08-30-2022 ambulatory PACHECO CARTER Facility:[facility] Start: 07-04-[address] AASHISH LAGUNA . Fac ility:[facility] Start: 06-17-2022 End: 06-18-[address] AASHISH LAGUNA . Facility:[facility] Start: 05-16-2022 End: 05-17-[address] AASHISH LAGUNA . Facility:[facility] Start: 03-18-2022 End: 03-19-2022 [facility] Start: 03-18-2022 End: 03-18-2022 Subsequent hospital visit by physician Aashish Laguna MD Work Phone: [facility] Comment on above: Atrial fibrillation, new onset (HCC) Start: 02-27-2022 End: 02-27-2022 Patient encounter procedure LILIAM LEW [facility] Start: 02-12-2022 End: 02-13-2022 ambulatory [facility] Start: 02-12-2022 End: 02-12-2022 Subsequent hospital visit by physician Shruti Del Toro Rm [facility] Comment on above: Atrial fibrillation, new onset (HCC) Start: 12-31-2021 End: 01-01-[address] AASHISH LAGUNA . Facility:[facility] Start: 07-12-2021 End: 07-12-2021 Subsequent hospital visit by physician Aashish Laguna MD Work Phone: [facility] Comment on above: Atrial fibrillation, new onset (HCC) Atrial fibrillation, new onset (HCC); Essential hypertension; Anemia, unspecified type Start: 06-11-2021 End: 06-11-2021 Subsequent hospital visit by physician Shruti Del Toro Rm [facility] Comment on above: Arrived Start: 10-14-2020 End: 10-14-2020 Orders Only Nahomy Hernandez Work Phone: [facility] Start: 05-19-2019 End: 05-19-2019 Patient encounter procedure NIRU DARWIN [facility] Start: 05-19-2019 End: 05-19-2019 Subsequent hospital visit by physician Niru Carter Work Phone: [facility] Start: 05-17-2019 End: 05-17-2019 Subsequent hospital visit by physician Aashish Laguna [facility] Comment on above: SOB (shortness of br eath); Hypertension, unspecified type; Diabetes mellitus without complication (HCC) SOB (shortness of br eath); Hypertension, unspecified type; Diabetes mellitus without complication (HCC); Renal insufficiency Procedures Date Procedure Procedure Detail Performing Clinician Start: 11-25-2024 Screening mammograph y of bilateral breasts Aashish Laguna MD Work Phone: Start: 10-02-2023 End: 10-02-2023 Screening mammography of bilateral breasts MD Aashish Laguna Work Phone: Start: 11-25-2022 Plain X-ray abdomen MD Aashish Laguna Work Phone: Start: 10-14-2022 Dual energy X-ray absorptiometry MD Aashish Laguna Work Phone: Start: 10-14-2022 Screening mammograph y of bilateral breasts MD Aashish Laguna Work Phone: Start: 09-18-2022 STRESS TEST, FIDELIA Carter MD Work Phone: Start: 09-17-2022 Myocardial spect mul tiple studies Pacheco Carter MD Work Phone: Start: 03-18-2022 Ecg routine ecg w/le ast 12 lds w/i&r Pacheco Carter MD Work Phone: Start: 02-12-2022 End: 02-12-2022 Ecg routine ecg w/least 12 lds w/i&r Pacheco Carter MD Work Phone: Start: 07-12-2021 Comprehensive metabo lic panel Pacheco Carter MD Work Phone: Start: 07-12-2021 Ecg routine ecg w/le ast 12 lds w/i&r Pacheco Carter MD Work Phone: Start: 06-11-2021 End: 06-11-2021 Ecg routine ecg w/least 12 lds w/i&r Pacheco Carter MD Work Phone: Start: 02-22-2021 Cystoscopy LILIAM PENDLETON Start: 05-19-2019 Cardiac catheterization Niru Carter Work Phone: Start: 05-19-2019 Glucose [Mass/volume ] in Blood Niru Carter Work Phone: Start: 05-17-2019 Blood count complete auto&auto difrntl wbc Pacheco Carter Work Phone: Start: 05-17-2019 Comprehensive metabo lic panel Pacheco Carter Work Phone: Start: 05-17-2019 Lipid panel Pacheco vick Work Phone: Start: 05-17-2019 PATIENT FASTING? Pacheco Carter Work Phone: Start: 08-05-2011 Colonoscopy Aashish dye MD Work Phone: Start: 04-24-1998 Cystoscopy LILIAM PENDLETON Cholecystectomy LILIAM PYLE Foot structure (body structure) LILIAM LEW Placement of stent i n cardiac conduit LILIAM LEW Comment on above: 11/2016 Reduction mammoplasty JESE LEW Plan of Treatment Date Care Activity Detail Author Start: 05-17-2026 Glaucoma screening Diabetes: Retinopathy Screening [facility] Start: 09-30-2025 Screening for malignant neoplasm of colon [facility] Start: 08-24-2025 End: 08-24-2025 Patient encounter procedure 08/24/2025 1:45 PM EST Office Visit [facility] [address] [place] [address] Angel Russ, DO [address] [place] [address] [facility] Start: 05-16-2025 Glaucoma screening Diabetes: Retinopathy Screening [facility] Start: 04-20-2025 End: 04-20-2025 Patient encounter procedure 04/20/2025 2:00 PM EDT Office Visit [facility] [address] [place] [address] Aashish Laguna MD [address] [place] [address] [facility] Start: 03-25-2025 End: 10-26-2025 T3, reverse T3, reverse Lab Routine Chronic fatigue ESS (euthyroid sick syndrome) Expected: 03/25/2025, Expires: 10/26/2025 [facility] Comment on above: Expected: 03/25/2025, Expires: Start: 03-25-2025 End: 10-26-2025 Thyrotropin [Units/volume] in Serum or Plasma TSH Lab Routine Acquired hypothyroidism (CMS/HCC) Chronic fatigue Expected: 03/25/2025, Expires: 10/26/2025 [facility] Comment on above: Expected: 03/25/2025, Expires: Start: 03-25-2025 End: 10-26-2025 Thyroxine (T4) free [Mass/volume] in Serum or Plasma T4, free Lab Routine Acquired hypothyroidism (CMS/HCC) Chronic fatigue Expected: 03/25/2025, Expires: 10/26/2025 [facility] Comment on above: Expected: 03/25/2025, Expires: Start: 03-25-2025 End: 10-26-2025 Triiodothyronine (T3) [Mass/volume] in Serum or Plasma T3 Lab Routine Chronic fatigue ESS (euthyroid sick syndrome) Expected: 03/25/2025, Expires: 10/26/2025 [facility] Work Phone: Comment on above: Expected: 03/25/2025, Expires: Start: 03-25-2025 End: 10-26-2025 Triiodothyronine (T3) Free [Mass/volume] in Serum or Plasma T3, free Lab Routine Chronic fatigue ESS (euthyroid sick syndrome) Expected: 03/25/2025, Expires: 10/26/2025 [facility] Comment on above: Expected: 03/25/2025, Expires: Start: 02-03-2025 Urine screening for protein Diabetes: Urine Protein Screening [facility] Start: 01-13-2025 End: 01-13-2025 Patient encounter procedure [facility] Start: 12-01-2024 Pneumococcal Vaccine: 65+ Years (2 of 2 - PCV) Pneumococcal Vaccine: 65+ Years (2 of 2 - PCV) [facility] Comment on above: Postponed from 04/01/2019 (Patient Refus ed) Start: 11-09-2024 End: 11-09-2024 Patient encounter procedure [facility] Comment on above: Encounter for Medicare annual wellness e xam; Advance directive in chart; Encounter for screening for other disorder; Screening for alcohol problem; Morbid obesity (CMS/HCC); BMI 40.0-44.9, adult (CMS/HCC); Type 2 diabetes mellitus with stage 3a chronic kidney disease, without long-term current use of insulin (HCC) (CMS/HCC); Stage 3b chronic kidney disease (HCC) (CMS/HCC); Essential hypertension; Microalbuminuric diabetic nephropathy (CMS/HCC); Hyperlipidemia, mixed ([facility]/HCC) Start: 11-04-2024 End: 05-04-2025 T3, reverse T3, reverse Lab Routine Chronic fatigue Expected: 11/04/2024 (Approximate), Expires: 05/04/2025 [facility] Comment on above: Expected: 11/04/2024 (Approximate), Expi res: 05/04/2025 Start: 11-04-2024 End: 05-04-2025 Thyrotropin [Units/volume] in Serum or Plasma TSH Lab Routine Chronic fatigue Expected: 11/04/2024 (Approximate), Expires: 05/04/2025 [facility] Comment on above: Expected: 11/04/2024 (Approximate), Expi res: 05/04/2025 Start: 11-04-2024 End: 05-04-2025 Thyroxine (T4) free [Mass/volume] in Serum or Plasma T4, free Lab Routine Chronic fatigue Expected: 11/04/2024 (Approximate), Expires: 05/04/2025 [facility] Comment on above: Expected: 11/04/2024 (Approximate), Expi res: 05/04/2025 Start: 11-04-2024 End: 05-04-2025 Triiodothyronine (T3) [Mass/volume] in Serum or Plasma T3 Lab Routine Chronic fatigue Expected: 11/04/2024 (Approximate), Expires: 05/04/2025 [facility] Work Phone: Comment on above: Expected: 11/04/2024 (Approximate), Expi res: 05/04/2025 Start: 11-04-2024 End: 05-04-2025 Triiodothyronine (T3) Free [Mass/volume] in Serum or Plasma T3, free Lab Routine Chronic fatigue Expected: 11/04/2024 (Approximate), Expires: 05/04/2025 [facility] [facility] Comment on above: Expected: 11/04/2024 (Approximate), Expi res: 05/04/2025 Start: 10-26-2024 End: 10-26-2024 Patient encounter procedure [facility] FM 100 Start: 10-03-2024 End: 10-24-2025 DBT Breast - bilateral screening Bilateral screening mammogram with tomosynthesis Imaging Routine Breast cancer screening by mammogram Expected: 10/03/2024, Expires: 10/24/2025 [facility] Work Phone: Comment on above: Expected: 10/03/2024, Expires: Start: 10-02-2024 Screening for malignant neoplasm of breast Mammogram [facility] Start: 08-23-2024 End: 08-23-2024 Patient encounter procedure 08/23/2024 1:45 PM EST Office Visit [facility] [address] [place] [id number] Angel Russ DO [address] [place] [address] [facility] Start: 08-06-2024 Hemoglobin A1c measurement Diabetes: Hemoglobin A1C [facility] Start: 07-21-2024 End: 07-21-2024 Patient encounter procedure 07/21/2024 2:30 PM EST Office Visit [facility] [address] [facility] [address] [place] [address] Aashish Laguna MD [address] [place] [address] (Fax) [facility] 100 Start: 05-13-2024 End: 05-13-2024 Patient encounter procedure 05/13/2024 2:30 PM EDT Office Visit [facility] [address] [facility] [address] [place] [address] Aashish Laguna MD [address] [place] [address] (Fax) [facility] 100 Start: 05-12-2024 End: 05-12-2024 Patient encounter procedure [facility] 100 Comment on above: Recurrent major depressive disorder, in partial remission (HCC) ([facility]); Chronic post-traumatic stress disorder (PTSD) ([facility]); Mild cognitive impairment with memory loss; Morbid obesity ([facility]); BMI 40.0-44.9, adult ([facility]) Start: 05-09-2024 Influenza vaccination Influenza Vaccine (#1) [facility] Start: 05-06-2024 Hemoglobin A1c measurement Diabetes: Hemoglobin A1C [facility] Start: 05-04-2024 End: 05-04-2024 Patient encounter procedure [facility] 100 Comment on above: ESS (euthyroid sick syndrome); Chronic fatigue syndrome; Morbid obesity ([facility]); BMI 40.0-44.9, adult ([facility]) Start: 02-05-2024 End: 02-05-2024 Patient encounter procedure 02/05/2024 2:00 PM EDT Office Visit [facility] [address] [facility] [facility] [place] [address] Aashish Lgauna MD [address] [place] [address] (Fax) [facility] Start: 11-11-2023 End: 11-11-2023 Patient encounter procedure 11/11/2023 2:30 PM EST Office Visit [facility] [address] [facility] [place] [address] Aashish Laguna MD [address] [facility] [place] [address] (Fax) [facility] Start: 10-15-2023 End: 10-15-2023 Patient encounter procedure 10/15/2023 2:00 PM EST Office Visit [facility] [address] [facility] [place] [address] Aashish Laguna MD [address] [facility] [place] [address] (Fax) [facility] Start: 10-01-2023 Hemoglobin A1c measurement Diabetes: Hemoglobin A1C [facility] Start: 09-17-2023 Lipid panel Lipids [facility] Start: 09-05-2023 Urine screening for protein Diabetes: Urine Protein Screening [facility] Start: 07-17-2023 Medicare Annual Wellness (AWV) Medicare Annual Wellness (AWV) [facility] Start: 03-17-2023 End: 03-17-2023 Patient encounter procedure 03/17/2023 Office Visit Cardiology Pacheco Carter MD [address] [place] [address] [facility] [employer] Start: 10-08-2022 Urine screening for protein Diabetic microalbuminuria test [facility] Start: 09-17-2022 End: 09-17-2022 Patient encounter procedure 09/17/2022 Office Visit Cardiology Pacheco Carter MD [address] [place] [address] [facility] [employer] Start: 07-12-2022 GFR test (Diabetes, CKD 3-4, OR last GFR 15-59) GFR test (Diabetes, CKD 3-4, OR last GFR 15-59) [facility] Start: 05-09-2022 Influenza vaccination Flu vaccine (#1) [facility] Start: 04-08-2022 Influenza vaccination Flu vaccine (#1) [facility] Start: 03-18-2022 End: 03-18-2022 Patient encounter procedure 03/18/2022 Office Visit Cardiology Pacheco Carter MD [address] [place] [id number] [facility] [employer] Start: 01-08-2022 End: 01-08-2022 Patient encounter procedure 01/08/2022 Office Visit Cardiology Pacheco Carter MD [address] [place] [phone] [facility] [employer] Start: 10-04-2021 Urine screening for protein [facility] Start: 08-05-2021 Screening for malignant neoplasm of colon Colonoscopy [facility] Start: 07-12-2021 End: 07-12-2021 Patient encounter procedure 07/12/2021 Office Visit Cardiology Pacheco Carter MD [address] [place] [id number] [facility] [employer] Start: 05-09-2021 Influenza vaccination Flu vaccine (#1) [facility] Work Phone: Start: 05-17-2020 Lipid panel [facility] Start: 04-11-2020 End: 04-11-2020 Office Visit 04/11/2020 Office Visit Cardiology Pacheco Carter MD [address] [place] [address] [facility] [employer] Start: 03-26-2020 Screening for malignant neoplasm of colon [facility] Start: 05-19-2019 End: 05-19-2019 Nurse Only 05/19/2019 Nurse Only Cardiology [facility] [employer] Start: 05-09-2019 Influenza vaccination Flu vaccine (#1) [place] Start: 04-01-2019 Pneumococcal 65+ years Vaccine (2 - PCV) Pneumococcal 65+ years Vaccine (2 - PCV) [facility] Start: 04-01-2019 Pneumococcal 65+ years Vaccine (2 of 2 - PCV13) Pneumococcal 65+ years Vaccine (2 of 2 - PCV13) [place] Start: 04-01-2019 Pneumococcal Vaccine: 65+ Years (2 - PCV) Pneumococcal Vaccine: 65+ Years (2 - PCV) [facility] Start: 02-28-2019 Annual Wellness Visit (AWV) Annual Wellness Visit (AWV) [facility] Start: 03-26-2018 Screening for malignant neoplasm of colon [facility] Start: 11-18-2017 Lipid screen Lipid screen [place], [place] Start: 2014 DEXA (modify frequency per FRAX score) DEXA (modify frequency per FRAX score) [place] Start: 08-19-2013 Shingles Vaccine (2 of 3) Shingles Vaccine (2 of 3) [place], [place] Start: 2012 Annual Wellness Visit (AWV) Annual Wellness Visit (AWV) [place] Start: 09-11-2006 DTaP/Tdap/Td vaccine (1 - Tdap) DTaP/Tdap/Td vaccine (1 - Tdap) [facility] Start: 2004 Screening for osteoporosis DEXA (modify frequency per FRAX score) [facility] Start: 1999 Colon cancer screen colonoscopy Colon cancer screen colonoscopy [place], [place] Start: 1994 Screening for malignant neoplasm of colon [facility] Start: 1989 Breast cancer screen Breast cancer screen [place], [place] Start: 1989 Screening for malignant neoplasm of breast Breast cancer screen [facility] Start: 1967 Diabetic microalbuminuria test Diabetic microalbuminuria test [place] Start: 1967 Diabetic retinal exam [facility] Start: 1967 Glaucoma screening Diabetic retinal exam [facility] [employer] Start: 1967 Hepatitis C screening Hepatitis C screen [facility] [employer] Start: 1961 Depression Screen Depression Screen [facility] [employer] Start: 1959 [object Object] Diabetic foot exam [place], [place] Start: 1959 A1C test (Diabetic or Prediabetic) A1C test (Diabetic or Prediabetic) [place] Start: 1959 Diabetic foot examination Diabetic foot exam [facility] [employer] [facility] [employer] Start: 1959 Diabetic retinal exam Diabetic retinal exam [place], [place] Start: 1959 Hemoglobin A1c measurement A1C test (Diabetic or Prediabetic) [facility] [employer] Start: 1949 Annual Wellness Visit (AWV) Annual Wellness Visit (AWV) [facility] [employer] Start: 1949 Hepatitis C screen Hepatitis C screen [place], [place] Start: 1949 Hepatitis C screening Hepatitis C screen [facility] [employer] Phone: Start: 1949 Screening for malignant neoplasm of colon [facility] Cardiac catheterization Cardiac Catheterization Cardiac Cath Routine 05/19/2019 8:40 AM EDT [facility] End: 02-12-2022 Cardioversion Defibrillation Cardioversion Defibrillation Cardiac Cath Routine Atrial fibrillation, new onset (HCC) 1 Occurrences starting 02/12/2022 until 02/12/2022 [employer] [facility] [employer] Work Phone: Comment on above: 1 Occurrences starting 02/12/2022 until 02/12/2022 EKG 12 Lead [facility] [employer] [place], [place] EKG 12 Lead [employer] [facility] [employer] Work Phone: EKG 12 Lead EKG 12 Lead ECG Routine Atrial fibrillation, new onset (HCC) 03/18/2022 9:[address] [facility] [employer] Work Phone: Immunizations Immunization Date Immunization Notes Care Provider Stephen carrasco 08-11-2024 ABRYSVO - Respirator y syncytial virus (RSV), vaccine, bivalent, protein subunit RSV prefusion F, diluent reconstituted, 0.5 mL, PF Aashish Laguna MD Work Phone: [facility] 08-11-2024 Pneumococcal Conjuga te PCV 20 Aashish Laguna MD Work Phone: [facility] 06-21-2024 SARS-COV-2 (COVID-19 ) vaccine, mRNA, spike protein, LNP, PF, 50 mcg/0.5 mL Aashish Laguna MD Work Phone: [facility] 06-21-2024 Seasonal trivalent influenza vaccine, adjuvanted, preservative free Aashish Laguna MD Work Phone: [facility] 08-14-2023 SARS-COV-2 (COVID-19 ) vaccine, mRNA, spike protein, LNP, PF, 50 mcg/0.5 mL Aashish Laguna MD Work Phone: [facility] 07-10-2023 Influenza, Seasonal, Quadrivalent, Adjuvanted Aashish Laguna MD Work Phone: [facility] 07-10-2023 influenza virus vacc ine, unspecified formulation Aashish Laguna MD Work Phone: [facility] 08-14-2022 influenza, injectabl e, quadrivalent, preservative free Aashish Laguna MD Work Phone: [facility] 06-13-2021 influenza, high dose seasonal, preservative-free Aashish Laguna MD Work Phone: [facility] 06-13-2021 Seasonal, trivalent, recombinant, injectable influenza vaccine, preservative free Aashish Laguna MD Work Phone: [facility] 11-15-2020 SARS-CoV-2 (COVID-19 ) [id number] vaccine LILIAM LEW [facility] Comment on above: Result Comment: 2 sh ot 10-12-2020 SARS-CoV-2 (COVID-19 ) [id number] vaccine LILIAM LEW [facility] Comment on above: Result Comment: 1st shot 07-06-2020 Seasonal trivalent influenza vaccine, adjuvanted, preservative free Aashish Laguna MD Work Phone: [facility] 06-21-2020 zoster vaccine recombinant Aashish Laguna MD Work Phone: [facility] 10-08-2019 zoster vaccine recombinant Aashish Laguna MD Work Phone: [facility] 07-05-2019 influenza, high dose seasonal, preservative-free Aashish Laguna MD Work Phone: [facility] 07-06-2018 influenza, high dose seasonal, preservative-free Aashish Laguna MD Work Phone: [facility] 07-06-2018 influenza, injectabl e, quadrivalent, preservative free Aashish Laguna MD Work Phone: [facility] 04-01-2018 pneumococcal polysaccharide vaccine, 23 valent Aashish Laguna MD Work Phone: [facility] 06-23-2017 influenza, injectabl e, quadrivalent, preservative free Aashish Laguna MD Work Phone: [facility] 07-08-2016 influenza, injectabl e, quadrivalent, preservative free Aashish Laguna MD Work Phone: [facility] 07-08-2016 Seasonal trivalent influenza vaccine, adjuvanted, preservative free Aashish Laguna MD Work Phone: [facility] 08-09-2015 influenza, seasonal, injectable, preservative free Aashish Laguna MD Work Phone: [facility] 07-10-2015 influenza, injectabl e, quadrivalent, preservative free Aashish Laguna MD Work Phone: [facility] 06-18-2013 zoster vaccine, live Aashish Laguna MD Work Phone: [facility] 05-19-2013 pneumococcal polysaccharide vaccine, 23 valent Aashish Laguna MD Work Phone: [facility] 09-10-2006 tetanus and diphther ia toxoids, adsorbed, preservative free, for adult use (5 Lf of tetanus toxoid and 2 Lf of diphtheria toxoid) Aashish Laguna MD Work Phone: [facility] Payers Date Payer Category Payer Private Health Insurance AARP Ma mber [id number] 2022 Unknown AARP AARP [id number] 2022-Present [address] [place] [address] [id number] 2016 Unknown AARP AARP [employer] [id number] 2016-Present [id number] 2014 Unknown [id number] .[id number] 2014 Medicare MEDICARE MEDICAR E PART A & B [id number] 2014-Present [place] [id number] 2014 Medicare MEDICARE MEDICAR E PART A & B xxxxxxxxxx 2014-Present [place] xxxxxxxxxx [id number] 2014 Medicare [id number] .[id number] 1959 Medicare [id number] 1959 Self-pay [id number] 1959 Unknown [id number] 1949 Unknown [id number] 2.16.840.1.297152.3.579.2 .903 1949 Unknown [id number] 2.16.840.1.545424.3.579.2 .174 1949 Unknown [id number] 2.16.840.1.619126.3.579.2 .174 1949 Unknown [id number] 2.16.840.1.276934.3.579.2 .174 1949 Unknown [id number] 2.16.840.1.738973.3.579.2 .174 1949 Unknown [id number] 2.16.840.1.046513.3.579.2 .174 1949 Unknown [id number] 2.16.840.1.540578.3.579.2 .174 1949 Unknown [id number] 2.16.840.1.995201.3.579.2 .174 1949 Unknown [id number] 2.16.840.1.365355.3.579.2 .593 1949 Unknown [id number] 2.16.840.1.828975.3.579.2 .593 1949 Unknown [id number] 2.16.840.1.399968.3.579.2 .593 1949 Unknown [id number] 2.16.840.1.927341.3.579.2 .593 1949 Unknown [id number] 2.16.840.1.209652.3.579.2 .593 1949 Unknown [id number] 2.16.840.1.420343.3.579.2 .593 1949 Unknown [id number] 2.16.840.1.837732.3.579.2 .593 1949 Unknown [id number] 2.16.840.1.953357.3.579.2 .593 1949 Unknown [id number] 2.16.840.1.025364.3.579.2 .593 1949 Unknown [id number] 2.16840.1.029960.3.579.2 .593 1949 Unknown [id number] 2.840.1.455221.3.579.2 .593 1949 Unknown [id number] 2.840.1.666458.3.579.2 .1259 1949 Unknown [id number] 2.840.1.284779.3.579.2 .125 1949 Unknown [id number] 2.16840.1.321400.3.579.2 .1259 1949 Unknown [id number] 2.840.1.971418.3.579.2 .125 1949 Unknown [id number] 2.16840.1.995605.3.579.2 .1259 1949 Unknown [id number] 2.16840.1.148320.3.579.2 .125 1949 Unknown [id number] 2.840.1.806714.3.579.2 .1259 1949 Unknown [id number] 2.16840.1.238634.3.579.2 .1259 Medicare [employer] [id number] Unknown [id number] 2.16.840.1.558030.3.579.2 .531 Social History Date Type Detail Facility Start: 05-21-2019 End: 06-12-2023 Tobacco smoking status [facility]IS Never smoker [place], [place] Start: 05-21-2019 End: 06-12-2023 Tobacco use and exposure Never used [facility] Start: 05-21-2019 End: 10-26-2024 Alcohol intake Ex-drinker (finding) [facility] Start: 1950 Sex Assigned At Not on file [place] Start: 05-17-2019 End: 10-26-2024 Alcohol intake No [place] Start: 05-01-2021 End: 09-17-2022 Alcohol intake Current non-drinker of alcohol (finding) [facility] Work Phone: Tobacco smoking status Never [facility] [employer] Start: 1950 Sex Assigned At Female F [facility] Start: 08-20-2023 End: 10-26-2024 History of Social function [facility] How often to you hav e a drink containing alcohol? Never [facility] Start: 08-20-2023 Education 13 [facility] Start: 06-12-2023 Alcohol Comment Caffeine intak e: 1 cup day of soda, occasional diet coke [facility] if ever smoked [facility] Work Phone: Start: 11-26-2024 Sex Female (finding) [facility] Medical Equipment Procedure Code Equipment Code Equipment Origin al Text Equipment Identifier Dates Closure Alana ruiz Se - [id number] FDA Start: 05-19-2019 Functional Status Date Assessment Result Facility 02-27-2022 Functional Status N/A [facility] Clinical Notes 03-26-2021 to 10-26-2024 Aashish Laguna MD - 10/26/2024 2:00 PM Mazin Hui MA - 08/23/2024 1:45 PM Misty Laguna MD - 07/21/2024 2:30 PM Misty Laguna MD - 05/12/2024 2:30 PM EDT Note Date & Type Note Facility 10-26-2024 History of Present illness Narrative Images from the original note were not included. Patient ID: Patricia Blake is a 74 y.o. female who presents for: Thyroid: Pt here today to review his/hers thyroid labs and any medication changes needed. Fatigue: Present, just got over being very sick Weight Gain: Absent Inability to lose weight: absent Hair Changes: absent He/She is following the thyroid diet: Good He/She are taking medications as directed: Good He/She are exercising at least 3 days out of the week for 30 minutes or more: Poor to fair Review of Systems Constitutional: Positive for fatigue. Negative for appetite change. HENT: Negative for trouble swallowing and voice change. Cardiovascular: Negative for palpitations. Musculoskeletal: Negative for arthralgias and myalgias. Psychiatric/Behavioral: Negative for sleep disturbance. The patient is not nervous/anxious. Endocrine: Positive for cold intolerance and heat intolerance. No visits with results within 1 Month(s) from this visit. Latest known visit with results is: Office Visit on 05/04/2024 Component Date Value Ref Range Status T3, TOTAL 10/12/2024 131 76 - 181 ng/dL Final T3 REVERSE, LC/MS/MS 10/12/2024 17 8 - 25 ng/dL Final Comment: This test was developed and its analytical performance characteristics have been determined by [place]. It has not been cleared or approved by the U.S. Food and Drug Administration. This assay has been validated pursuant to the CLIA regulations and is used for clinical purposes. T3, FREE 10/12/2024 3.2 2.3 - 4.2 pg/mL Final T4, FREE 10/12/2024 1.2 0.8 - 1.8 ng/dL Final TSH 10/12/2024 1.47 0.40 - 4.50 mIU/L Final Calculated THY Ratio: 7.7 Objective The patient is pleasant and in no acute distress The patient has good eye contact and clear speech She actually seems to be breathing a little bit easier than normal for her. Visit Vitals Ht 4' 11.75 Wt 208 lb BMI 40.96 kg/m OB Status Postmenopausal Smoking Status Never BSA 1.99 m Allergies Allergen Reactions Amino Acids Amoxicillin Lisinopril Swelling Sulfanilamide Penicillin G Rash Current Outpatient Medications on File Prior to Visit Medication Sig Dispense Refill albuterol HFA 90 mcg/act inhaler Inhale 2 puffs every 6 (six) hours if needed for shortness of breath 18 g 11 atorvastatin (Lipitor) 10 MG tablet Take 1 tablet (10 mg) by mouth Daily 90 tablet 1 buPROPion SR (Wellbutrin SR) 150 MG 12 hr tablet Take 1 tablet (150 mg) by mouth in the morning and 1 tablet (150 mg) before bedtime. 60 tablet 5 dilTIAZem CD (Cardizem CD) 120 MG 24 hr capsule Take 120 mg by mouth in the morning and 120 mg before bedtime. Eliquis 5 MG tablet Take 5 mg by mouth in the morning and 5 mg before bedtime. furosemide (Lasix) 20 MG tablet Take 1 tablet (20 mg) by mouth in the morning. 90 tablet 1 gemfibrozil (Lopid) 600 MG tablet Take 1 tablet (600 mg) by mouth in the morning and 1 tablet (600 mg) before bedtime. 180 tablet 1 isosorbide mononitrate ER (Imdur) 30 MG 24 hr tablet Take 1 tablet (30 mg) by mouth Daily 30 tablet 1 levothyroxine (Synthroid, Levoxyl) 50 MCG tablet Take 1 tablet (50 mcg) by mouth in the morning. Take before meals. 90 tablet 1 liothyronine (Cytomel) 5 MCG tablet Take 1 tablet in AM and 1 tablet in PM on an empty stomach. DUARTE; [employer] or [employer] brands only 180 tablet 1 metFORMIN (Glucophage) 1000 MG tablet Take 1 tablet (1,000 mg) by mouth in the morning and 1 tablet (1,000 mg) in the evening. Take with meals. 180 tablet 1 metoprolol tartrate (Lopressor) 50 MG tablet Take 50 mg by mouth in the morning and 50 mg before bedtime. nystatin-triamcinolone (Mycolog II) ointment Apply topically 2 (two) times a day 30 g 0 potassium chloride CR (Klor-Con) 10 MEQ ER tablet Take 10 mEq by mouth every 12 (twelve) hours. QUEtiapine (SEROquel) 25 MG tablet 1/2 tablet at bedtime 15 tablet 5 [DISCONTINUED] allopurinol (Zyloprim) 100 MG tablet Take 1 tablet (100 mg) by mouth Daily 30 tablet 0 [DISCONTINUED] allopurinol (Zyloprim) 300 MG tablet Take 1 tablet (300 mg) by mouth Daily 30 tablet 11 [DISCONTINUED] colchicine 0.6 MG tablet initial dose of 1 tablet followed by 1 tablet every 2 hours until the gouty pain is relieved, gastrointestinal symptoms develop, or the maximum dose is reached. Hold metformin while taking 4 tablet 0 No current facility-administered medications on file prior to visit. 1. Acquired hypothyroidism (CMS/HCC) (Primary) In prescribing a renewal to their current medication, consideration of the following encompasses moderate decision making; the current prescriptions and supplements, the current allergies and medication intolerances, current medical conditions, and potential drug interactions. Any changes to risks, benefits, and reason for renewing their current medication due to the above were discussed. The patient was given a chance to ask questions today and all questions were answered. The patient is to contact us if any other questions arise or if any problems occur. (Utilizing the original guidelines or the 2020 office/outpatient code guidelines for selecting the level of E/M service, In both sets of guidelines, prescription drug management appears in the moderate medical decision making (MDM) row. Neither the original guidelines nor the new guidelines state that a new prescription or change is needed in order to credit prescription drug management) - levothyroxine (Synthroid, Levoxyl) 50 MCG tablet; Take 1 tablet (50 mcg) by mouth in the morning. Take before meals. Dispense: 90 tablet; Refill: 1 - T4, free; Future - TSH; Future - T4, free - TSH 2. Chronic fatigue Chronic problem, stable, complex in nature with moderate decision making. 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 We discussed how this is improved significantly. We discussed that the patient will almost certainly need to continue to make lifestyle changes including diet, sleep, exercise, and stress management as appropriate. We discussed how this is almost always a multifactorial problem. We further discussed how we will continue to search for refinements in their current treatments or evaluation for further disease processes and then support or treat them as appropriate. We discussed how we can frequently improve the symptoms, but may not be able to completely cure or resolve the issue. The patient was given a chance to ask questions and all questions were answered. - T3; Future - T3, reverse; Future - T3, free; Future - T4, free; Future - TSH; Future - T3 - T3, reverse - T3, free - T4, free - TSH 3. ESS (euthyroid sick syndrome) I did discuss with her the elevation of her reverse T3 that is affecting her thyroid ratio. We did talk about attempting to make her profile look better, but she has had trouble with previous elevated doses of liothyronine. We have mutually agreed to continue current treatment. This is a complex chronic problem, stable, to goal; management requires moderate decision making I reviewed diet and exercise with the patient. I discussed the patient's current psychosocial and physical condition and the stress impact upon them. I reviewed the multiple unique laboratories and explained the results to the patient. The patient has been re-educated concerning the above diagnoses and that the treatment for some of these may not be considered the standard of care, including TSH suppression when utilized. The patient has been re-educated and instructed concerning medication timing, diet, exercise, and stress reduction as appropriate. I reviewed the patient's current prescriptions and discussed the possibilities of medication renewals, adjustments, new medication start, or stop medication as appropriate. The patient has been instructed to follow up and bring a diet and exercise log, obtain the unique laboratory tests ordered, and the importance of follow up and compliance. The patient was given a chance to ask questions today and all questions were answered. The patient is to contact us if any other questions arise or if any problems occur. - liothyronine (Cytomel) 5 MCG tablet; Take 1 tablet in AM and 1 tablet in PM on an empty stomach. DUARTE; Sigma or [employer] brands only Dispense: 180 tablet; Refill: 1 - T3; Future - T3, reverse; Future - T3, free; Future - T3 - T3, reverse - T3, free 4. Morbid obesity (CMS/HCC) Chronic problem that is stable. We did encouraged lifestyle changes but she has been unable to institute them after previous discussions. 5. BMI 40.0-44.9, adult (CMS/[facility]) Defines the morbid obesity documented in this encounter [facility] 08-23-2024 History of Present illness Narrative Images from the original note were not included. Angel Russ, DO Obstetrics and Gynecology Patricia Blake 1950 08/23/24 [id number] Yearly Wellness Exam Chief Complaint Patient presents with Gynecologic Exam Medicare yearly. LMP: 2003 HRT: None Last pap 08-14-22 neg. Last mammogram 10-02-23 [facility] [place]. Denies breast, urinary, or bowel concerns. Visit Vitals BP 134/78 Ht 4' 10.5 Wt 208 lb BMI 42.73 kg/m OB Status Postmenopausal Smoking Status Never BSA 1.97 m OB History Para Term AB Living 0 0 0 0 0 0 SAB IAB Ectopic Multiple Live Births 0 0 0 0 0 Current Outpatient Medications Medication Sig Dispense Refill albuterol HFA 90 mcg/act inhaler Inhale 2 puffs every 6 (six) hours if needed for shortness of breath 18 g 11 allopurinol (Zyloprim) 100 MG tablet Take 1 tablet (100 mg) by mouth Daily 30 tablet 0 allopurinol (Zyloprim) 300 MG tablet Take 1 tablet (300 mg) by mouth Daily 30 tablet 11 atorvastatin (Lipitor) 10 MG tablet Take 1 tablet (10 mg) by mouth Daily 90 tablet 1 buPROPion SR (Wellbutrin SR) 150 MG 12 hr tablet Take 1 tablet (150 mg) by mouth in the morning and 1 tablet (150 mg) before bedtime. 60 tablet 5 colchicine 0.6 MG tablet initial dose of 1 tablet followed by 1 tablet every 2 hours until the gouty pain is relieved, gastrointestinal symptoms develop, or the maximum dose is reached. Hold metformin while taking 4 tablet 0 dilTIAZem CD (Cardizem CD) 120 MG 24 hr capsule Take 120 mg by mouth in the morning and 120 mg before bedtime. Eliquis 5 MG tablet Take 5 mg by mouth in the morning and 5 mg before bedtime. furosemide (Lasix) 20 MG tablet Take 1 tablet (20 mg) by mouth in the morning. 90 tablet 1 gemfibrozil (Lopid) 600 MG tablet Take 1 tablet (600 mg) by mouth in the morning and 1 tablet (600 mg) before bedtime. 180 tablet 1 isosorbide mononitrate ER (Imdur) 30 MG 24 hr tablet Take 1 tablet (30 mg) by mouth Daily 30 tablet 1 levothyroxine (Synthroid, Levoxyl) 50 MCG tablet Take 1 tablet (50 mcg) by mouth in the morning. Take before meals. 90 tablet 1 liothyronine (Cytomel) 5 MCG tablet Take 1 tablet in AM and 1 tablet in PM on an empty stomach. DUARTE; Sigma or [email or web address] brands only 180 tablet 1 metFORMIN (Glucophage) 1000 MG tablet Take 1 tablet (1,000 mg) by mouth in the morning and 1 tablet (1,000 mg) in the evening. Take with meals. 180 tablet 1 metoprolol tartrate (Lopressor) 50 MG tablet Take 50 mg by mouth in the morning and 50 mg before bedtime. nystatin-triamcinolone (Mycolog II) ointment Apply topically 2 (two) times a day 30 g 0 potassium chloride CR (Klor-Con) 10 MEQ ER tablet Take 10 mEq by mouth every 12 (twelve) hours. QUEtiapine (SEROquel) 25 MG tablet 1/2 tablet at bedtime 15 tablet 5 No current facility-administered medications for this visit. Allergies Allergen Reactions Amino Acids Amoxicillin Lisinopril Swelling Sulfanilamide Penicillin G Rash Past Surgical History: Procedure Laterality Date BOTOX INJECTION Botox to bladder Dr. Castle CATARACT EXTRACTION W/ INTRAOCULAR LENS IMPLANT, BILATERAL 2014 COLONOSCOPY 2010 CORONARY STENT PLACEMENT 12/04/2016 CORONARY STENT PLACEMENT 05/2019 CYSTOSCOPY CO BREAST REDUCTION CO LAP,CHOLECYSTECTOMY Past Medical History: Diagnosis Date Arthritis Atrial fibrillation with rapid ventricular response (CMS/HCC) Bilateral fibrocystic breast changes Bronchitis Cataracts, bilateral Chronic fatigue Congestive heart failure (CHF) (CMS/HCC) Depression (CMS/HCC) Diabetes (CMS/HCC) Diabetic nephropathy associated with type 2 diabetes mellitus (HCC) (CMS/HCC) H/O psychiatric care History of being hospitalized 06/2021 [facility] congestive heart failure, 3 days Hx of psychiatric care Hyperlipidemia (CMS/HCC) Hypertension (CMS/HCC) Hypothyroid (CMS/HCC) ESS Insulin resistance Irritable bowel syndrome with both constipation and diarrhea LAD (lymphadenopathy) Ostial LAD lesion 95% Measles LA (myocardial infarction) (CMS/HCC) x2 Mild pulmonary hypertension (CMS/HCC) Mumps Nephrolithiasis Obesity Pneumonia PTSD (post-traumatic stress disorder) (CMS/HCC) Serum calcium elevated Stage 3 chronic kidney disease (HCC) (CMS/HCC) ROS Const: Denies appetite change, fever, chills. Allergy: Denies medication reaction. Ocular: Denies visual acuity change. ENT: Denies hearing change. Endoc: Denies weight loss. Resp: Denies dyspnoea, wheezing. Cardiac: Denies angina, palpitations. GI: Denies nausea, vomiting. Haem: Denies bleeding. : Denies incontinence. MSK: Denies arthralgias, joint oedema. Derm: Denies rash, hair loss. Neuro: Denies ataxia, tremor. Also see HPI for elements of ROS documented therein and for details of positive findings, which shall supersede the foregoing. EXAM GENERAL EXAMINATION alert oriented well developed, well nourished. HEAD: normocephalic atraumatic. EYES: sclera anicteric. EARS: no obvious hearing deficit. NECK/THYROID: neck supple no cervical lymphadenopathy no thyromegaly. LYMPH NODES: no axillary, supraclavicular or inguinal adenopathy. SKIN: warm and dry. HEART: regular rate and rhythm. LUNGS: clear to auscultation bilaterally. CHEST:axillary nodes grossly normal. BREASTS:no masses palpable bilaterally, normal nipples bilaterally - everted -fatty replaced - dense - well supported- axilla negative, bilateral scarring ABDOMEN: soft, nontender, nondistended, no masses palpable. Umbilical omphalitis BACK: no costovertebral angle tenderness, no obvious scoliosis/kyphosis. FEMALE GENITOURINARY:roller skater in room -atrophic changes, loss of color and folds, flush cervix without lesion, normal AV uterus L fornix- unable to feel fundus , adnexa negative - cul-de-sac negative, intertriginous - chronic vulvitis 360 (unchanged) - all edema and erythema - no erosion, gr. 1 pelvic prolapse, intertriginous RECTAL:normal tone , no masses palpable , only small external hemorrhoids. EXTREMITIES no edema. NEUROLOGIC: alert and oriented. PSYCH: cooperative with exam. ICD-10-CM 1. Encounter for gynecological examination without abnormal finding Z01.419 Pelvic and breast exam completed. Findings of today's exam discussed with the patient. Continue MSBE. Ca/Vit D recommendations reviewed with the patient. The patient is to contact the office with any changes to her gynecological condition or any changes with breast or bleeding. The patient is to return in 1 year or as needed 2. Breast cancer screening by mammogram Z12.31 Bilateral screening mammogram with tomosynthesis Screening mammogram ordered. Patient to call and schedule. 3. Omphalitis P38.9 Use alcohol to area PRN 4. Chronic dermatitis L30.9 Use nystatin triamcinolone cream. 5. Chronic vulvitis N76.3 nystatin-triamcinolone (Mycolog II) ointment Entered by Michelle Hui MA acting as scribe for Dr. Angel Russ. Signature Michelle Hui MA Date 08/23/24 . Time 1:51 PM . The documentation recorded by the scribe accurately reflects the service(s) I personally performed and the decisions I made. Signature Sharon Russ D.O. Date 08/23/24 Time 5:00PM. documented in this encounter [facility] 07-21-2024 History of Present illness Narrative Images from the original note were not included. Patient ID: Patricia Blake is a 74 y.o. female who presents for: Hypertension Patient is here for follow-up of elevated blood pressure. She is not exercising and is adherent to a low-salt diet. Blood pressure is not checking BP at home. Cardiac symptoms: dyspnea. Patient denies chest pain, irregular heart beat, lower extremity edema, and palpitations. Cardiovascular risk factors: advanced age (older than 55 for men, 65 for women), diabetes mellitus, dyslipidemia, hypertension, microalbuminuria, obesity (BMI >= 30 kg/m2), and sedentary lifestyle. Use of agents associated with hypertension: thyroid hormones. History of target organ damage: chronic kidney disease and heart failure. Hyperlipidemia Pt who presents for follow-up of dyslipidemia. A repeat fasting lipid profile was not done. The patient does not use medications that may worsen dyslipidemias (corticosteroids, progestins, anabolic steroids, diuretics, beta-blockers, amiodarone, cyclosporine, olanzapine). Exercise: never. Diabetes Mellitus Patient presents for follow up of diabetes. Current symptoms include: none. Symptoms have stabilized. Patient denies increased appetite, paresthesia of the feet, and visual disturbances. Evaluation to date has included: none . Home sugars: patient does not check sugars. Review of Systems Constitutional: Negative for activity change and fatigue. Respiratory: Positive for shortness of breath. Negative for cough and wheezing. Cardiovascular: Negative for chest pain, palpitations and leg swelling. Neurological: Negative for light-headedness and headaches. Objective The patient is pleasant and in no acute distress. The neck is supple and trachea is midline. No masses are appreciated. Distant heart sounds. The heart is regular rate and rhythm without S3, S4. No murmur. The patient has prolonged expiratory phase respiratory pattern. Occasional pursed lip breathing. Speaks full sentences. The breath sounds are Diffusely decreased but symmetrical without evidence of rhonchi or rales. No wheezing. The skin is warm and dry. The lower extremities have trace to 1+ edema. The patient has good eye contact and speech is clear. Appropriate affect. Visit Vitals BP 126/78 Pulse 82 Ht 4' 11.75 Wt 219 lb SpO2 98% BMI 43.13 kg/m OB Status Postmenopausal Smoking Status Never BSA 2.05 m Allergies Allergen Reactions Amino Acids Amoxicillin Lisinopril Swelling Sulfanilamide Penicillin G Rash Current Outpatient Medications on File Prior to Visit Medication Sig Dispense Refill albuterol HFA 90 mcg/act inhaler Inhale 2 puffs every 6 (six) hours if needed for shortness of breath 18 g 11 allopurinol (Zyloprim) 100 MG tablet Take 1 tablet (100 mg) by mouth Daily 30 tablet 0 allopurinol (Zyloprim) 300 MG tablet Take 1 tablet (300 mg) by mouth Daily 30 tablet 11 atorvastatin (Lipitor) 10 MG tablet Take 1 tablet (10 mg) by mouth Daily 90 tablet 1 buPROPion SR (Wellbutrin SR) 150 MG 12 hr tablet Take 1 tablet (150 mg) by mouth in the morning and 1 tablet (150 mg) before bedtime. 60 tablet 5 colchicine 0.6 MG tablet initial dose of 1 tablet followed by 1 tablet every 2 hours until the gouty pain is relieved, gastrointestinal symptoms develop, or the maximum dose is reached. Hold metformin while taking 4 tablet 0 dilTIAZem CD (Cardizem CD) 120 MG 24 hr capsule Take 120 mg by mouth in the morning and 120 mg before bedtime. Eliquis 5 MG tablet Take 5 mg by mouth in the morning and 5 mg before bedtime. furosemide (Lasix) 20 MG tablet Take 1 tablet (20 mg) by mouth in the morning. 90 tablet 1 gemfibrozil (Lopid) 600 MG tablet Take 1 tablet (600 mg) by mouth in the morning and 1 tablet (600 mg) before bedtime. 180 tablet 1 levothyroxine (Synthroid, Levoxyl) 50 MCG tablet Take 1 tablet (50 mcg) by mouth in the morning. Take before meals. 90 tablet 1 liothyronine (Cytomel) 5 MCG tablet Take 1 tablet in AM and 1 tablet in PM on an empty stomach. DUARTE; [employer] or [employer] brands only 180 tablet 1 metFORMIN (Glucophage) 1000 MG tablet Take 1 tablet (1,000 mg) by mouth in the morning and 1 tablet (1,000 mg) in the evening. Take with meals. 180 tablet 1 metoprolol tartrate (Lopressor) 50 MG tablet Take 50 mg by mouth in the morning and 50 mg before bedtime. potassium chloride CR (Klor-Con) 10 MEQ ER tablet Take 10 mEq by mouth every 12 (twelve) hours. QUEtiapine (SEROquel) 25 MG tablet 1/2 tablet at bedtime 15 tablet 5 isosorbide mononitrate ER (Imdur) 30 MG 24 hr tablet Take 1 tablet (30 mg) by mouth Daily 30 tablet 1 No current facility-administered medications on file prior to visit. 1. Essential hypertension Chronic problem, stable, to goal. Also comanaged with the Cardiology. Has had recent med refill and requires no refills for her medications at this time. 2. Stage 3b chronic kidney disease (HCC) (CMS/HCC) Chronic problem, but no clinically manifested complications, monitor longitudinally. 3. Type 2 diabetes mellitus with stage 3b chronic kidney disease, without long-term current use of insulin (HCC) (CMS/HCC) Chronic problem, stable, last labs to goal back in March. - metFORMIN (Glucophage) 1000 MG tablet; Take 1 tablet (1,000 mg) by mouth in the morning and 1 tablet (1,000 mg) in the evening. Take with meals. Dispense: 180 tablet; Refill: 1 4. Microalbuminuric diabetic nephropathy (CMS/HCC) Chronic problem, defining an aspect the nephropathy, with significant risk, uncertain progression requiring longitudinal monitoring, and moderate decision making. Microalbuminuria describes a moderate increase in the level of urine albumin. Normally, the kidneys filter albumin, so if the kidney leaks small amounts of albumin into the urine then it is a indicator of chronic kidney disease. Microalbuminuria is an independent indicator of increased cardiovascular risk among individuals and therefore can be used for risk stratification for cardiovascular disease. 5. Hyperlipidemia, mixed (CMS/HCC) Chronic problem requiring dual treatment. Aware of increased risk with this combination of medications for liver injury. - atorvastatin (Lipitor) 10 MG tablet; Take 1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 primary prevention; <70 mg/dL for patients with CHD or diabetic patients with > or = 2 CHD risk factors. LDL-C is now calculated using the Grayson-Hart calculation, which is a validated novel method providing better accuracy than the Friedewald equation in the estimation of LDL-C. Grayson CALL et al. JAMIE. 2013;310(19): 7553-5016 (http://education.[employer]/faq/JNN359) CHOL/HDLC RATIO 02/04/2024 3.9 <5.0 (calc) Final NON HDL CHOLESTEROL 02/04/2024 84 <130 mg/dL (calc) Final Comment: For patients with diabetes plus 1 major ASCVD risk factor, treating to a non-HDL-C goal of <100 mg/dL (LDL-C of <70 mg/dL) is considered a therapeutic option. Glucose 02/04/2024 120 (H) 65 - 99 mg/dL Final Comment: Fasting reference interval For someone without known diabetes, a glucose value between 100 and 125 mg/dL is consistent with prediabetes and should be confirmed with a follow-up test. BUN 02/04/2024 24 7 - 25 mg/dL Final Creatinine 02/04/2024 1.01 (H) 0.60 - 1.00 mg/dL Final EGFR 02/04/2024 58 (L) > OR = 60 mL/min/1.73m2 Final BUN/CREATININE RATIO 02/04/2024 24 (H) 6 - 22 (calc) Final Sodium 02/04/2024 142 135 - 146 mmol/L Final Potassium, Bld 02/04/2024 4.1 3.5 - 5.3 mmol/L Final Chloride 02/04/2024 105 98 - 110 mmol/L Final Carbon Dioxide 02/04/2024 27 20 - 32 mmol/L Final Calcium 02/04/2024 10.2 8.6 - 10.4 mg/dL Final PROTEIN, TOTAL 02/04/2024 7.0 6.1 - 8.1 g/dL Final ALBUMIN 02/04/2024 4.3 3.6 - 5.1 g/dL Final GLOBULIN 02/04/2024 2.7 1.9 - 3.7 g/dL (calc) Final ALBUMIN/GLOBULIN RATIO 02/04/2024 1.6 1.0 - 2.5 (calc) Final BILIRUBIN, TOTAL 02/04/2024 0.4 0.2 - 1.2 mg/dL Final ALKALINE PHOSPHATASE 02/04/2024 79 37 - 153 U/L Final AST 02/04/2024 38 (H) 10 - 35 U/L Final ALT 02/04/2024 28 6 - 29 U/L Final Allergies Allergen Reactions Amino Acids Amoxicillin Lisinopril Swelling Sulfanilamide Penicillin G Rash Current Outpatient Medications on File Prior to Visit Medication Sig Dispense Refill albuterol HFA 90 mcg/act inhaler Inhale 2 puffs every 6 (six) hours if needed for shortness of breath 18 g 11 atorvastatin (Lipitor) 10 MG tablet Take 1 tablet (10 mg) by mouth Daily 90 tablet 1 buPROPion SR (Wellbutrin SR) 150 MG 12 hr tablet Take 1 tablet (150 mg) by mouth in the morning and 1 tablet (150 mg) before bedtime. 60 tablet 5 dilTIAZem CD (Cardizem CD) 120 MG 24 hr capsule Take 120 mg by mouth in the morning and 120 mg before bedtime. Eliquis 5 MG tablet Take 5 mg by mouth in the morning and 5 mg before bedtime. furosemide (Lasix) 20 MG tablet Take 1 tablet (20 mg) by mouth in the morning. 90 tablet 1 gemfibrozil (Lopid) 600 MG tablet Take 1 tablet (600 mg) by mouth in the morning and 1 tablet (600 mg) before bedtime. 180 tablet 1 isosorbide mononitrate ER (Imdur) 30 MG 24 hr tablet Take 1 tablet (30 mg) by mouth Daily 30 tablet 1 levothyroxine (Synthroid, Levoxyl) 75 MCG tablet Take 1 tablet (75 mcg) by mouth in the morning. Take before meals. 90 tablet 0 liothyronine (Cytomel) 5 MCG tablet Take 1 tablet in AM and 1 tablet in PM on an empty stomach. DUARTE; [employer] or [employer] brands only 180 tablet 1 metFORMIN (Glucophage) 1000 MG tablet Take 1 tablet (1,000 mg) by mouth in the morning and 1 tablet (1,000 mg) in the evening. Take with meals. 180 tablet 1 metoprolol tartrate (Lopressor) 50 MG tablet Take 50 mg by mouth in the morning and 50 mg before bedtime. potassium chloride CR (Klor-Con) 10 MEQ ER tablet Take 10 mEq by mouth every 12 (twelve) hours. QUEtiapine (SEROquel) 25 MG tablet 1/2 tablet at bedtime 15 tablet 5 [DISCONTINUED] digoxin (Lanoxin) 125 MCG tablet Take 125 mcg by mouth in the morning. allopurinol (Zyloprim) 100 MG tablet Take 1 tablet (100 mg) by mouth Daily (Patient not taking: Reported on 05/04/2024) 90 tablet 1 [DISCONTINUED] amiodarone (Pacerone) 200 MG tablet Take 1 tablet by mouth in the morning. [DISCONTINUED] colchicine 0.6 MG tablet Take 0.6 mg by mouth if needed. [DISCONTINUED] colchicine 0.6 MG tablet initial dose of 1 tablet followed by 1 tablet every 2 hours until the gouty pain is relieved, gastrointestinal symptoms develop, or the maximum dose is reached. Hold metformin while taking 4 tablet 0 No current facility-administered medications on file prior to visit. 1. Acquired hypothyroidism (CMS/HCC) In prescribing an adjustment to their current medication, consideration of the following encompasses moderate decision making; the current prescriptions and supplements, the current allergies and medication intolerances, the current medical conditions, and potential drug interactions. Risks, benefits, and reason for adjusting their current medication were discussed. The patient was given a chance to ask questions today and all questions were answered. The patient is to contact us if any other questions arise or if any problems occur with the adjustment in their medication. - levothyroxine (Synthroid, Levoxyl) 50 MCG tablet; Take 1 tablet (50 mcg) by mouth in the morning. Take before meals. Dispense: 90 tablet; Refill: 1 2. ESS (euthyroid sick syndrome) This is a complex chronic problem, stable, to goal; management requires moderate decision making With her reverse T3 being somewhat elevated to 17 we are going to try and decrease the levothyroxine just a little to help her out. I reviewed diet and exercise with the patient. I discussed the patient's current psychosocial and physical condition and the stress impact upon them. I reviewed the multiple unique laboratories and explained the results to the patient. The patient has been re-educated concerning the above diagnoses and that the treatment for some of these may not be considered the standard of care, including TSH suppression when utilized. The patient has been re-educated and instructed concerning medication timing, diet, exercise, and stress reduction as appropriate. I reviewed the patient's current prescriptions and discussed the possibilities of medication renewals, adjustments, new medication start, or stop medication as appropriate. The patient has been instructed to follow up and bring a diet and exercise log, obtain the unique laboratory tests ordered, and the importance of follow up and compliance. The patient was given a chance to ask questions today and all questions were answered. The patient is to contact us if any other questions arise or if any problems occur. - liothyronine (Cytomel) 5 MCG tablet; Take 1 tablet in AM and 1 tablet in PM on an empty stomach. DUARTE; [employer] or [employer] brands only Dispense: 180 tablet; Refill: 1 3. Chronic fatigue Chronic problem, unstable, complex in nature with moderate decision making. I discussed with the patient or their b2b outside sales representative, their fatigue issues. We discussed how this is either not improved or not inadequately addressed. We discussed how this is almost always a multifactorial problem. We discussed that the patient will almost certainly need to continue to make lifestyle changes including diet, sleep, exercise, and stress management as appropriate. We further discussed how we will continue to search for refinements in their current treatments or evaluation for further disease processes and then support or treat them as appropriate. We discussed how we can frequently improve the symptoms, but may not be able to completely cure or resolve the issue. The patient was given a chance to ask questions and all questions were answered. - T3; Future - T3, reverse; Future - T3, free; Future - T4, free; Future - TSH; Future - T3 - T3, reverse - T3, free - T4, free - TSH 4. Morbid obesity (CMS/HCC) Chronic problem that has a comorbid condition from multiple components of her illnesses. Encouraged her to avoid sugar in the simple carbohydrates. Discussed some basic chair exercises that she can do while sitting. 5. BMI 40.0-44.9, adult (CMS/HCC) Defines the morbid obesity 6. Dyspnea on exertion She is complaining of this and the swelling today and we had a cancellation so I did spend time reviewing the chart in trying to Assist her with this. She has had chronic shortness of breath with activity secondary to restriction due to the obesity. This seems to have significantly worse it. She does perceive a benefit when she uses her albuterol inhaler but she is not using them regularly. We have mutually agreed that she is going to take her albuterol inhaler 3 times daily 1st thing in the morning mid day and before she goes to bed at night regularly over the holiday weekend and then call me with an update next week. She maybe at the point where she needs hand-held nebulizer. We did make this also a [id number] visit to get that part of the coverage out of the way while she is here. I certify that I had a [id number] encounter with this patient at todays office visit. Due to this medical condition the patient requires DME. I certify that based on my findings The DME ordered is medically necessary for this patient. This has been discussed with the patient and/or their b2b outside sales representative and mutually agreed upon. 7. Pulmonary hypertension (CMS/HCC) Chronic problem that has historically been stable and a comorbid condition. 8. Paroxysmal atrial fibrillation (CMS/HCC) Chronic problem that has historically been stable and a comorbid condition. 9. Stage 3b chronic kidney disease (HCC) (CMS/HCC) Chronic problem, unstable, progressing, defining the end organ damage of the nephropathy. I stressed the importance of keeping blood pressure and blood sugar to goal, staying well hydrated, and aerobic exercises as tolerated. Continue to monitor longitudinally 10. Iron deficiency anemia, unspecified iron deficiency anemia type Chronic problem which is stable but a comorbid condition. Probably from inadequate iron intake as well as potentially some chronic GI loss secondary to the Eliquis. He could also have a component of anemia of kidney disease. Either way we are going to have her start iron 3 times weekly. 11. Chronic venous insufficiency of lower extremity Chronic problem that is somewhat worsened for her. I am also wondering if the pain she is having in the lower extremities not all related to the edema in above diagnosis. A wondering if she is stressed or strained her foot while doing steps or some other activity that are bothersome for her. I also with her stage IIIB chronic kidney disease do not want to increase the diuretics unless we have to. She notes she has a response from the Lasix and does have to go bathroom in the morning more. We discussed and she is really not elevating her leg she is putting a mi and a foot still that is lower than the seat of the chair. She does have a couch where she can raise her legs. I have asked her at lunchtime and around supper time to go ahead and raise her legs to try and help venous insufficiency. documented in this encounter [facility] 04-28-2024 Telephone encounter Note Called Lora. Discussed to hold tonight's metformin. Discussed how to take. Stay hydrated. Call tomorrow if not better. [facility] 04-28-2024 Miscellaneous Notes Called Lora. Discussed to hold tonight's metformin. Discussed how to take. Stay hydrated. Call tomorrow if not better. Lora called to move her appointment she has for tomorrow to next week. She states she is having a gout flare and can not get down her stairs to get to her car. She is asking if Dr. Laguna could send something in for her for the gout so she can have documented in this encounter [facility] 04-28-2024 Telephone encounter Note Lora called to move her appointment she has for tomorrow to next week. She states she is having a gout flare and can not get down her stairs to get to her car. She is asking if Dr. Laguna could send something in for her for the gout so she can have [facility] 10-15-2023 History of Present illness Narrative Patient ID: Patricia Blake is a 73 y.o. female who presents for: Pt here today to review his/hers thyroid labs and any medication changes needed. Fatigue: Present, worsened, hasn't been sleeping well, brother was killed in an accident in [facility] Weight Gain: Absent Inability to lose weight: Present, Unchanged Hair Changes: absent He/She is following the thyroid diet: Good He/She are taking medications as directed: Good He/She are exercising at least 3 days out of the week for 30 minutes or more: Good Anxiety Patient is here for evaluation of anxiety. He/She has the following anxiety symptoms: difficulty concentrating, fatigue, insomnia, racing thoughts. Onset of symptoms was approximately several years ago. Symptoms have been gradually worsening since that time. He/She denies current suicidal and homicidal ideation. Family history significant for no psychiatric illness.Possible organic causes contributing are: none. Previous treatment includes medication Wellbutrin. He/She complains of the following medication side effects: none. Review of Systems Constitutional: Positive for fatigue. Negative for appetite change. HENT: Positive for voice change. Negative for trouble swallowing. Cardiovascular: Negative for palpitations. Musculoskeletal: Positive for arthralgias and myalgias. Psychiatric/Behavioral: Positive for sleep disturbance. The patient is nervous/anxious. Endocrine: Positive for cold intolerance and heat intolerance. Objective The patient is pleasant and in no acute distress The head is normocephalic and atraumatic Although no formal testing is done, patient does not appear to have a gross neurologic deficit concerning memory and goal directed thinking during the interview. The patient has good eye contact and clear speech. Office Visit on 07/17/2023 Component Date Value Ref Range Status TSH 10/02/2023 2.16 0.40 - 4.50 mIU/L Final T4, FREE 10/02/2023 1.0 0.8 - 1.8 ng/dL Final T3, FREE 10/02/2023 2.9 2.3 - 4.2 pg/mL Final Telephone on 05/14/2023 Component Date Value Ref Range Status T3, TOTAL 07/01/2023 165 76 - 181 ng/dL Final T3 REVERSE, LC/MS/MS 07/01/2023 27 (H) 8 - 25 ng/dL Final Comment: This test was developed and its analytical performance characteristics have been determined by [facility], [place]. It has not been cleared or approved by the U.S. Food and Drug Administration. This assay has been validated pursuant to the CLIA regulations and is used for clinical purposes. T3, FREE 07/01/2023 4.3 (H) 2.3 - 4.2 pg/mL Final T4, FREE 07/01/2023 1.8 0.8 - 1.8 ng/dL Final TSH 07/01/2023 0.05 (L) 0.40 - 4.50 mIU/L Final Hemoglobin A1C 07/01/2023 6.0 (H) <5.7 % of total Hgb Final Comment: For someone without known diabetes, a hemoglobin A1c value between 5.7% and 6.4% is consistent with prediabetes and should be confirmed with a follow-up test. For someone with known diabetes, a value <7% indicates that their diabetes is well controlled. A1c targets should be individualized based on duration of diabetes, age, comorbid conditions, and other considerations. This assay result is consistent with an increased risk of diabetes. Currently, no consensus exists regarding use of hemoglobin A1c for diagnosis of diabetes for children. Visit Vitals Ht 4' 11.75 Wt 212 lb BMI 41.75 kg/m OB Status Postmenopausal Smoking Status Never BSA 2.01 m Allergies Allergen Reactions Amino Acids Amoxicillin Lisinopril Swelling Sulfanilamide Penicillin G Rash Current Outpatient Medications Medication Instructions albuterol HFA 90 mcg/act inhaler 2 puffs, Inhalation, Every 6 hours PRN allopurinol (ZYLOPRIM) 100 mg, Oral, Daily amiodarone (Pacerone) 200 MG tablet 1 tablet, Oral, Daily atorvastatin (LIPITOR) 10 mg, Oral, Daily buPROPion SR (WELLBUTRIN SR) 150 mg, Oral, 2 times daily colchicine 0.6 mg, Oral, As needed digoxin (LANOXIN) 125 mcg, Oral, Daily dilTIAZem CD (CARDIZEM CD) 120 mg, Oral, 2 times daily Eliquis 5 mg, Oral, 2 times daily furosemide (LASIX) 20 mg, Oral, Every morning gemfibrozil (LOPID) 600 mg, Oral, 2 times daily isosorbide mononitrate ER (IMDUR) 30 mg, Oral, Daily levothyroxine (SYNTHROID, LEVOXYL) 75 mcg, Oral, Daily before breakfast liothyronine (Cytomel) 5 MCG tablet Take 1 tablet in AM and 1 tablet in PM on an empty stomach. DUARTE; Sigma or [employer] brands only metFORMIN (GLUCOPHAGE) 1,000 mg, Oral, 2 times daily with meals metoprolol tartrate (LOPRESSOR) 50 mg, Oral, 2 times daily potassium chloride CR (Klor-Con) 10 MEQ ER tablet 10 mEq, Oral, Every 12 hours QUEtiapine (SEROquel) 25 MG tablet 1/2 tablet at bedtime Assessment/Plan Diagnoses and all orders for this visit: Mild cognitive impairment with memory loss ESS (euthyroid sick syndrome) - liothyronine (Cytomel) 5 MCG tablet; Take 1 tablet in AM and 1 tablet in PM on an empty stomach. DUARTE; Sigma or [employer]stone brands only In prescribing a renewal to their current medication, consideration of the following encompasses moderate decision making; the current prescriptions and supplements, the current allergies and medication intolerances, current medical conditions, and potential drug interactions. Drug interaction screening is reviewed and there are moderate to major severity ratings to consider during prescription drug management. If the adjusted medication is considered a controlled substance, then the OARRS and NARX scores are obtained and reviewed. Any changes to risks, benefits, and reason for renewing their current medication due to the above were discussed. The patient was given a chance to ask questions today and all questions were answered. The patient is to contact us, preferably by using the patient portal, or call if any other questions arise or if any problems occur with the renewal of their medication. (Utilizing the original guidelines or the 2020 new office/outpatient code guidelines for selecting the level of E/M service, In both sets of guidelines, prescription drug management appears in the moderate medical decision making (MDM) row. Neither the original guidelines nor the new guidelines state that a new prescription or change is needed in order to credit prescription drug management) Acquired hypothyroidism ([facility]) - levothyroxine (Synthroid, Levoxyl) 75 MCG tablet; Take 1 tablet (75 mcg) by mouth in the morning. Take before meals. This is a complex chronic problem, stable, to goal; management requires moderate decision making I reviewed the diet and exercise log with the patient. I discussed the patient's current psychosocial and physical condition and the stress impact upon them. I reviewed the multiple unique laboratories and explained the results to the patient. The patient has been re-educated concerning the above diagnoses and that the treatment for some of these may not be considered the standard of care, including TSH suppression when utilized. The patient has been re-educated and instructed concerning medication timing, diet, exercise, and stress reduction as appropriate. I reviewed the patient's current prescriptions and discussed the possibilities of medication renewals, adjustments, new medication start, or stop medication as appropriate; and/or further treatment options. The patient has been instructed to follow up and bring a diet and exercise log, obtain the unique laboratory tests ordered, and the importance of follow up and compliance. The patient understands that without the diet and exercise log they will be re-scheduled. The patient was given a chance to ask questions today and all questions were answered. The patient is to contact us, preferably by using the patient portal, or call if any other questions arise or if any problems occur with the adjustment in their medication. Chronic fatigue syndrome Chronic problem, unstable, complex in nature with moderate decision making. 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 We discussed how this is either not improved or not adequatly adressed. We discussed how this is almost always a multifactorial problem. We discussed that the patient will almost certainly need to continue to make lifestyle changes including diet, sleep, exercise, and stress management as appropriate. We further discussed how we will continue to search for refinements in their current treatments and - or evaluation for further disease processes and then support or treat them as appropriate. We discussed how we can frequently improve the symptoms, but may not be able to completely cure or resolve the issue. The patient was given a chance to ask questions and all questions were answered. Recurrent major depressive disorder, in partial remission (HCC) ([facility]/HCC) - buPROPion SR (Wellbutrin SR) 150 MG 12 hr tablet; Take 1 tablet (150 mg) by mouth in the morning and 1 tablet (150 mg) before bedtime. Chronic problem, unstable with worsening symptoms since the of her brother in August. I did some active listening. Permission given for the mixed emotion she is struggling with. I do not see any further adjustment in her medications at this time. Chronic post-traumatic stress disorder (PTSD) (CMS/[facility]) Somewhat worsened as related to the above. documented in this encounter [facility] 10-15-2022 Note PROCEDURE: XR FOOT R T MIN 3 VIEWS HISTORY: Joint swelling ; acute dorsal right foot pain; no known injury COMPARISON: None. FINDINGS: BONES:Bunion formation. Mild degenerative changes the first metatarsophalangeal joint and joints and midfoot. No fracture or dislocation. SOFT TISSUES:Mild dorsal soft tissue swelling. EFFUSION:None visible. OTHER: Negative. IMPRESSION: 1. Mild degenerative changes and moderate bunion formation. Electronically authenticated by: KEVIN STEWART Date: 2022-10-15 13:30 [facility] 09-17-2022 History of Present illness Narrative 1017 - Lexiscan started. Pt tolerating well so far. 1020 - Continues to tolerate procedure with no complaints. 1022 - Pt tolerated procedure without complaints. Provided with snack at this time. documented in this encounter [facility] Phone: 02-27-2022 Hospital Discharge instructions Patient Education 02/27/2022 13:43:09 Overactive Bladder, Adult Overactive Bladder, Adult Overactive bladder refers to a condition in which a person has a sudden need to pass urine. The person may leak urine if he or she cannot get to the bathroom fast enough (urinary incontinence). A person with this condition may also wake up several times in the night to go to the bathroom. Overactive bladder is associated with poor nerve signals between your bladder and your brain. Your bladder may get the signal to empty before it is full. You may also have very sensitive muscles that make your bladder squeeze too soon. These symptoms might interfere with daily work or social activities. What are the causes? This condition may be associated with or caused by: Urinary tract infection. Infection of nearby tissues, such as the prostate. Prostate enlargement. Surgery on the uterus or urethra. Bladder stones, inflammation, or tumors. Drinking too much caffeine or alcohol. Certain medicines, especially medicines that get rid of extra fluid in the body (diuretics). Muscle or nerve weakness, especially from: ?A spinal cord injury. ?Stroke. ?Multiple sclerosis. ?Parkinson's disease. Diabetes. Constipation. What increases the risk? You may be at greater risk for overactive bladder if you: Are an older adult. Smoke. Are going through menopause. Have prostate problems. Have a neurological disease, such as stroke, dementia, Parkinson's disease, or multiple sclerosis (MS). Eat or drink things that irritate the bladder. These include alcohol, spicy food, and caffeine. Are overweight or obese. What are the signs or symptoms? Symptoms of this condition include: Sudden, strong urge to urinate. Leaking urine. Urinating 8 or more times a day. Waking up to urinate 2 or more times a night. How is this diagnosed? Your health care provider may suspect overactive bladder based on your symptoms. He or she will diagnose this condition by: A physical exam and medical history. Blood or urine tests. You might need bladder or urine tests to help determine what is causing your overactive bladder. You might also need to see a health care provider who specializes in urinary tract problems (urologist). How is this treated? Treatment for overactive bladder depends on the cause of your condition and whether it is mild or severe. You can also make lifestyle changes at home. Options include: Bladder training. This may include: ?Learning to control the urge to urinate by following a schedule that directs you to urinate at regular intervals (timed voiding). ?Doing Kegel exercises to strengthen your pelvic floor muscles, which support your bladder. Toning these muscles can help you control urination, even if your bladder muscles are overactive. Special devices. This may include: ?Biofeedback, which uses sensors to help you become aware of your body's signals. ?Electrical stimulation, which uses electrodes placed inside the body (implanted) or outside the body. These electrodes send gentle pulses of electricity to strengthen the nerves or muscles that control the bladder. ?Women may use a plastic device that fits into the vagina and supports the bladder (pessary). Medicines. ?Antibiotics to treat bladder infection. ?Antispasmodics to stop the bladder from releasing urine at the wrong time. ?Tricyclic antidepressants to relax bladder muscles. ?Injections of botulinum toxin type A directly into the bladder tissue to relax bladder muscles. Lifestyle changes. This may include: ?Weight loss. Talk to your health care provider about weight loss methods that would work best for you. ?Diet changes. This may include reducing how much alcohol and caffeine you consume, or drinking fluids at different times of the day. ?Not smoking. Do not use any products that contain nicotine or tobacco, such as cigarettes and e-cigarettes. If you need help quitting, ask your health care provider. Surgery. ?A device may be implanted to help manage the nerve signals that control urination. ?An electrode may be implanted to stimulate electrical signals in the bladder. ?A procedure may be done to change the shape of the bladder. This is done only in very severe cases. Follow these instructions at home: Lifestyle Make any diet or lifestyle changes that are recommended by your health care provider. These may include: ?Drinking less fluid or drinking fluids at different times of the day. ?Cutting down on caffeine or alcohol. ?Doing Kegel exercises. ?Losing weight if needed. ?Eating a healthy and balanced diet to prevent constipation. This may include: ?Eating foods that are high in fiber, such as fresh fruits and vegetables, whole grains, and beans. ?Limiting foods that are high in fat and processed sugars, such as fried and sweet foods. General instructions Take dnhm-rue-wjbaiol and prescription medicines only as told by your health care provider. If you were prescribed an antibiotic medicine, take it as told by your health care provider. Do not stop taking the antibiotic even if you start to feel better. Use any implants or pessary as told by your health care provider. If needed, wear pads to absorb urine leakage. Keep a journal or log to track how much and when you drink and when you feel the need to urinate. This will help your health care provider monitor your condition. Keep all follow-up visits as told by your health care provider. This is important. Contact a health care provider if: You have a fever. Your symptoms do not get better with treatment. Your pain and discomfort get worse. You have more frequent urges to urinate. Get help right away if: You are not able to control your bladder. Summary Overactive bladder refers to a condition in which a person has a sudden need to pass urine. Several conditions may lead to an overactive bladder. Treatment for overactive bladder depends on the cause and severity of your condition. Follow your health care provider's instructions about lifestyle changes, doing Kegel exercises, keeping a journal, and taking medicines. This information is not intended to replace advice given to you by your health care provider. Make sure you discuss any questions you have with your health care provider. Document Released: 06/21/2010 Document Revised: 12/16/2019 Document Reviewed: 09/10/2018 [employer] Patient Education 2020 [employer]. Follow Up Care 02/06/2022 15:12:13 With:LOUANN BATISTA, LILIAM Ruiz, URL Address: [address] [place] [address] When: Unknown [facility] [employer] 10-08-2021 Note Pulmonary Medicine COVID-19 Frequently Asked Questions COVID-19 (coronavirus disease) is an infection that is caused by a large family of viruses. Some viruses cause illness in people and others cause illness in animals like camels, cats, and bats. In some cases, the viruses that cause illness in animals can spread to humans. Where did the coronavirus come from? In August 2019, [place] told the World Health Organization (WHO) of several cases of lung disease (human respiratory illness). These cases were linked to an open seafood and livestock market in the city of [facility]. The link to the seafood and livestock market suggests that the virus may have spread from animals to humans. However, since that first outbreak in August, the virus has also been shown to spread from person to person. What is the name of the disease and the virus? Disease name Early on, this disease was called novel coronavirus. This is because scientists determined that the disease was caused by a new (novel) respiratory virus. The World Health Organization (WHO) has now named the disease COVID-19, or coronavirus disease. Virus name The virus that causes the disease is called severe acute respiratory syndrome coronavirus 2 (SARS-CoV-2). More information on disease and virus naming World Health Organization (WHO): www.who.int/emergencies/diseases/ calnw-hndxtwiuptw-5714/technical- guidance/fpobmc-oab-mwtfryeudwk-d isease-(covid-2019)-wyv-sgq-gzaoe -hcay-qbuqqb-tb Who is at risk for complications from coronavirus disease? Some people may be at higher risk for complications from coronavirus disease. This includes older adults and people who have chronic diseases, such as heart disease, diabetes, and lung disease. If you are at higher risk for complications, take these extra precautions: ? Avoid close contact with people who are sick or have a fever or cough. Stay at least 3?6 ft (1?2 m) away from them, if possible. ? Wash your hands often with soap and water for at least 20 seconds. ? Avoid touching your face, mouth, nose, or eyes. ? Keep supplies on hand at home, such as food, medicine, and cleaning supplies. ? Stay home as much as possible. ? Avoid social gatherings and travel. How does coronavirus disease spread? The virus that causes coronavirus disease spreads easily from person to person (is contagious). There are also cases of community-spread disease. This means the disease has spread to: ? People who have no known contact with other infected people. ? People who have not traveled to areas where there are known cases. It appears to spread from one person to another through droplets from coughing or sneezing. Can I get the virus from touching surfaces or objects? There is still a lot that we do not know about the virus that causes coronavirus disease. Scientists are basing a lot of information on what they know about similar viruses, such as: ? Viruses cannot generally survive on surfaces for long. They need a human body (host) to survive. ? It is more likely that the virus is spread by close contact with people who are sick (direct contact), such as through: ? Shaking hands or hugging. ? Breathing in respiratory droplets that travel through the air. This can happen when an infected person coughs or sneezes on or near other people. ? It is less likely that the virus is spread when a person touches a surface or object that has the virus on it (indirect contact). The virus may be able to enter the body if the person touches a surface or object and then touches his or her face, eyes, nose, or mouth. Can a person spread the virus without having symptoms of the disease? It may be possible for the virus to spread before a person has symptoms of the disease, but this is most likely not the main way the virus is spreading. It is more likely for the virus to spread by being in close contact with people who are sick and breathing in the respiratory droplets of a sick person's cough or sneeze. What are the symptoms of coronavirus disease? Symptoms vary from person to person and can range from mild to severe. Symptoms may include: ? Fever. ? Cough. ? Tiredness, weakness, or fatigue. ? Fast breathing or feeling short of breath. These symptoms can appear anywhere from 2 to 14 days after you have been exposed to the virus. If you develop symptoms, call your health care provider. People with severe symptoms may need hospital care. If I am exposed to the virus, how long does it take before symptoms start? Symptoms of coronavirus disease may appear anywhere from 2 to 14 days after a person has been exposed to the virus. If you develop symptoms, call your health care provider. Should I be tested for this virus? Your health care provider will decide whether to test you based on your symptoms, history of exposure, and your risk factors. How does a health care provider test for this virus? Health care providers will collect samples to send for testing. Samples may in (more content not included)... [facility] 03-26-2021 Note HPI Staff Pt is here for 1 mos f/u to Cysto/Botox 100 done 02/22/21. Pt doing well after having her procedure done. Dysuria: No Incomplete bladder emptying: No Hematuria: No Frequency: No Urgency: No Nocturia: No Leaking: No History of Present Illness Tests Reviewed: Reviewed UA, Reviewed PVR 57mL I have reviewed the previous health record information and history for this patient from Dr. Castle I have reviewed and verified the staff HPI to be accurate for this encounter. There have been no associated fever, chills, flank pain, or blood in the urine. Denies any urinary infections since last encounter. Review of Systems PHQ Score Initial Depression Screen Score: 0 General Appearance: alert , no acute distress, well nourished, well developed female. Head: normocephalic . Eyes: normal orbit and globe. ENMT: normal examination of external ears. Chest: Lungs CTA, respirations non labored . Cardiovascular: regular rate and rhythm. Abdomen: soft, non distended, no tenderness, no mass or organomegaly, no hernia. Genitourinary: bladder nonpalpable, no flank tenderness. Lymph Nodes: unremarkable palpation of the cervical area. Skin: warm, dry, no bruising. Psychiatric: cooperative, affect appropriate for age, normal judgement, euthymic mood. Physical Exam General Appearance: alert , no acute distress, well nourished, well developed female. Head: normocephalic . Eyes: normal orbit and globe. ENMT: normal examination of external ears. Chest: Lungs CTA, respirations non labored . Cardiovascular: regular rate and rhythm. Abdomen: soft, non distended, no tenderness, no mass or organomegaly, no hernia. Genitourinary: bladder nonpalpable, no flank tenderness. Lymph Nodes: unremarkable palpation of the cervical area. Skin: warm, dry, no bruising. Psychiatric: cooperative, affect appropriate for age, normal judgement, euthymic mood. Assessment/Plan 1. Mixed incontinence (N39.46: Mixed incontinence) intermittent, better since procedure. 2. Incomplete bladder emptying (R33.9: Retention of urine, unspecified) PVR 57mL 3. OAB (overactive bladder) (N32.81: Overactive bladder) S/p Botox 100 units 02/22/2021 Will f/u in 6 mo Overall the patient is doing quite well. She states she is about 90% better already. She is on no medications for her bladder. The amount of urinary retention, of which she has a history, is not severe. Her previous Botox lasted well over 1 year which I feel justifies an appointment in about 6 months. She will call for problems prior to that visit. She knows she should be voiding every 4-6 hours whether she feels like it or not so as to prevent over distention of her bladder. She likes that plan we will see her back. Follow-up With When Contact Information TIN GASCA, Niru Sanchez, LOPEZ In 6 months 09/26/[address] [address]- Additional Instructions: Patient Education Calorie Counting for Weight Loss Overactive Bladder, Adult I, Mayra Robert personally scribed for Dr. Castle on 03/26/2021 10:53:05. . Documentation recorded by the scribe, Mayra Robert, accurately reflects the services(s) I performed and decisions made by me. Authenticated by Dr. Castle on 03/26/2021 10:55:22. Problem List/Past Medical History Ongoing Anticoagulated Diabetes Frequent urination Hypertension Incomplete bladder emptying Mixed incontinence Nephrolithiasis Nocturia OAB (overactive bladder) Overactive bladder Stress incontinence Urge incontinence Urinary urgency Historical No qualifying data Procedure/Surgical History Cystoscopy (02/22/2021), Cystoscopy (04/24/1998), Breast reduction, Cholecystectomy, Foot, Placement of stent in cardiac conduit. Medications amLODIPine 5 mg Tab, Oral, Daily Aspir 81, Oral, Daily atorvastatin 10 mg Tab, Oral, Daily buPROPion 150 mg ER Tab, Oral, BID calcium citrate, Oral, BID Chelated Iron PO gemfibrozil 600 mg Tab, Oral, BID isosorbide mononitrate 30 mg ER Tab, Oral, qAM liothyronine 5 mcg Tab, Oral, Daily metformin 1000 mg oral tablet, extended release, Oral, Daily metoprolol 25 mg ER Tab, Oral, Daily nitroglycerin 0.4 mg sublingual Tab, 0.4 mg= 1 tab(s), SubLingual, q5min, PRN [employer] senior Vitamin C, Daily Allergies penicillins (Unknown) sulfa drugs (Unknown) Social History Tobacco Never (less than 100 in lifetime) Tobacco Use:. Never Smokeless Tobacco Use:., 03/26/2021 Family History Family history is unknown Immunizations Vaccine Date Status Comments SARS-CoV-2 (COVID-19) mRNA-1273 vaccine 11/15/2020 Recorded 2 shot SARS-CoV-2 (COVID-19) mRNA-1273 vaccine 10/12/2020 Recorded 1st shot Lab Results Ambulatory Point of Care Results Bilirubin Urine Dipstick: Negative (03/26/21 10:36:00) Blood Urine Dipstick: Negative (03/26/21 10:36:00) Glucose Urine Dipstic (more content not included)... [facility] Comment on above: Result Comment: Elec tronically Signed By: Niru CASTLE MD\.br\Date and Time Signed: 03/26/21 10:56 EDT\.br\Electronically Co-Signed By: Mayra Robert MA\.br\Date and Time Co-Signed: 03/26/21 10:53 EDT Evaluation + Plan note No data available for this section [facility] Evaluation note Diagnosis Atrial fibrillation, new onset (HCC) Atrial fibrillation documented in this encounter [employer] Phone: evaluation note* Diagnosis Atrial fibrillation, new onset (HCC) Atrial fibrillation Essential hypertension Unspecified essential hypertension Anemia, unspecified type documented in this encounter [employer] Phone: [email or web address] note* Diagnosis Atrial fibrillation, new onset (HCC) Atrial fibrillation documented in this encounter [employer] Phone: [email or web address] note* Diagnosis Atrial fibrillation, new onset (HCC) Atrial fibrillation documented in this encounter [employer] Phone: [email or web address] note* Diagnosis Abnormal EKG Nonspecific abnormal electrocardiogram (ECG) (EKG) Chest pain, unspecified type documented in this encounter [employer] Phone: evaluation noteNo assessment information available [facility] Work Phone: Evaluation note* Diagnosis Mild cognitive impairment with memory loss- Primary Mild cognitive impairment, so stated ESS (euthyroid sick syndrome) Euthyroid sick syndrome Acquired hypothyroidism (CMS/HCC) Unspecified hypothyroidism Chronic fatigue syndrome Recurrent major depressive disorder, in partial remission (HCC) (CMS/HCC) Chronic post-traumatic stress disorder (PTSD) (CMS/HCC) documented in this encounter [facility] HealthcareEvaluation note* Diagnosis Essential hypertension Unspecified essential hypertension Stage 3b chronic kidney disease (HCC) (CMS/HCC) Type 2 diabetes mellitus with stage 3b chronic kidney disease, without long-term current use of insulin (HCC) (CMS/HCC) Microalbuminuric diabetic nephropathy ([facility]) Hyperlipidemia, mixed ([facility]) Mixed hyperlipidemia Coronary artery disease involving [place] coronary artery of [place] heart without angina pectoris ([facility]) Pulmonary hypertension ([facility]) Other chronic pulmonary heart diseases Morbid obesity ([facility]) Morbid obesity BMI 40.0-44.9, adult ([facility]) documented in this encounter [facility]* Diagnosis Recurrent major depressive disorder, in partial remission (HCC) ([facility]) Chronic post-traumatic stress disorder (PTSD) ([facility]) Mild cognitive impairment with memory loss Mild cognitive impairment, so stated Morbid obesity ([facility]) Morbid obesity BMI 40.0-44.9, adult ([facility]) Hyperuricemia Other abnormal blood chemistry Acute idiopathic gout involving toe, unspecified laterality documented in this encounter [facility]* Diagnosis Encounter for gynecological examination without abnormal finding- Primary Breast cancer screening by mammogram Omphalitis Omphalitis of the Chronic dermatitis Contact dermatitis and other eczema, due to unspecified cause Chronic vulvitis Unspecified vaginitis and vulvovaginitis documented in this encounter [facility]* Diagnosis Acute idiopathic gout involving toe, unspecified laterality- Primary documented in this encounter [facility]* Diagnosis Acquired hypothyroidism ([facility])- Primary Unspecified hypothyroidism ESS (euthyroid sick syndrome) Euthyroid sick syndrome Chronic fatigue Other malaise and fatigue Morbid obesity ([facility]) Morbid obesity BMI 40.0-44.9, adult ([facility]) Dyspnea on exertion Other dyspnea and respiratory abnormality Pulmonary hypertension ([facility]) Other chronic pulmonary heart diseases Paroxysmal atrial fibrillation ([facility]) Atrial fibrillation Stage 3b chronic kidney disease (HCC) ([facility]) Iron deficiency anemia, unspecified iron deficiency anemia type Chronic venous insufficiency of lower extremity Recurrent major depressive disorder, in partial remission (HCC) ([facility]) Chronic post-traumatic stress disorder (PTSD) ([facility]) Mild cognitive impairment with memory loss Mild cognitive impairment, so stated Morbid obesity ([facility]) Morbid obesity BMI 40.0-44.9, adult ([facility]) documented in this encounter [facility]* Diagnosis Acquired hypothyroidism ([facility])- Primary Unspecified hypothyroidism Chronic fatigue Other malaise and fatigue ESS (euthyroid sick syndrome) Euthyroid sick syndrome Morbid obesity ([facility]) Morbid obesity BMI 40.0-44.9, adult ([facility]) Encounter for Medicare annual wellness exam Advance directive in chart Encounter for screening for other disorder Screening for alcohol problem Screening for alcoholism Morbid obesity ([facility]) Morbid obesity BMI 40.0-44.9, adult ([facility]) Type 2 diabetes mellitus with stage 3a chronic kidney disease, without long-term current use of insulin (HCC) ([facility]) Stage 3b chronic kidney disease (HCC) ([facility]) Essential hypertension Unspecified essential hypertension Microalbuminuric diabetic nephropathy ([facility]) Hyperlipidemia, mixed ([facility]) Mixed hyperlipidemia documented in this encounter [facility] No data available for this section [facility] [place] Summary Purpose Family History No Family History Records FoundNo Family History Records FoundNo Family History Records FoundNo Family History Records FoundNo Family History Records FoundNo Family History Records FoundNo Family History Records FoundNo Family History Records Found Advance Directives No Advanced Directives Records FoundDocuments on File Type Date Recorded Patient Paper Winder Expl anation Advance Directives and Livin g Will 05/19/2019 6:06 AM Latest Code Status on File Code Status Date Activated Date Inactivated Comments Full Code 05/19/2019 7:44 AM Documents on File Type Date Recorded Patient Paper Winder Expl anation Advance Directives and Living Will Power of Agent Telegrapher Documents on File Type Date Recorded Patient Paper Winder Expl anation Advance Directives and Living Will Power of Agent Telegrapher Documents on File Type Date Recorded Patient Paper Winder Expl anation ACP-Advance Directive ACP-Power of Agent Telegrapher Documents on File Type Date Recorded Patient Paper Winder Expl anation ACP-Advance Directive ACP-Power of Agent Telegrapher Advance Directive Response Recorded Date/ Time Advance Directives No July 9:50am Advance Directive Response Recorded Date/ Time Advance Directives No July 10:50am Documents on File Type Date Recorded Patient Paper Winder Expl anation Advance Directives and Living Will 04/26/2019 2019-04-26 DNR Advance Directives and Living Will 04/19/2019 [id number] Wi ll Discharge Instructions * Instructions* Candace Thomas RN - 05/19/2019 Post Procedure Site Care Instructions After an Angiogram, Peripheral Vascular Procedure, Cardiac Cath, Stent or Angioplasty. During your procedure, your doctor made an opening in your artery. There are many different ways toprevent bleeding from the puncture site. We use closure devices or apply direct manual pressure to the site. Your device was: ? Angioseal ?x Starclose ? Mynx ? Perclose ? TR Band For all Procedures: Drink 1 to 2 glasses fo fluid every hour until bedtime to flush the dye used out of the kidneys. Avoid caffeine and alcohol. Do not smoke for 24 hours after the procedure. Smoking greatly increases the chances of a blood clot forming in the artery. Avoid all types of tobacco. You may feel drowsy for the next several hours if you received sedation during the procedure. Limit these activities for the rest of the day: - Do not drive or operate hazardous machinery or instruments. - Do not make important business or personal decisions or sign legal papers. Wound Care: Keep the site clean and dry for 24 hours Apply a new band-aid right away if it becomes wet You may shower after 24 hours. Gently clean the site using mild soap and water Dry the area by blotting it with a clean towel. Do not scrub the area Do not apply powders or lotions to the area. Do not rub or scratch the wound. Do not submerge the site in water for 5 days Watch for signs of infection and call your doctor if they occur - Redness - Swelling - Drainage - Temperature greater than 101 ? What to Expect With Your Groin Site: After the procedure, your groin may feel numb, but this should wear off in about one hour. Soreness and tenderness may last about one week. Possible bruising could occur and last for about 2weeks. You may develop a lump the size of a dime or quarter and this could last up to 6 weeks. ? Care instructions for Groin and Leg Closures Keep a closure device card in your wallet. If re-puncture of the artery needs to occur in the next three months, show this card to your healthcare provider. For the first 2 days if a certain activity causes pain, do not do it. No lifting over 10 pounds forone week or until the wound heals. Limit climbing stairs and excessive bending, squatting, or stooping. Do not take a tub bath, submerge or soak wound in water, for the next 5 days or until the the woundis healed. ? Care Instructions for Wrist and Arm Closures Do not lift anything heaver than 10 pounds with affected arm for 7 days. Do no twist or turn a jar lift or anything else using the affected arm for 7 days. Do not submerge the site in water, such as bathing or washing dishes for 7 days. Do not use the affected hand for any continuous work that would cause flexion or extension of your wrist for 7 days, such as painting, washing windows, or using power tools. Call your Doctor or 911 Immediately if: Bright red, pulsating bleeding, or oozing of blood occurs, that does not stop after lying flat and applying firm pressure to your groin for at least 20 minutes. Increased swelling of a new hematoma, which is a firm, raising area that forms at the site. Changes in groin/leg or wrist/hand area occur, including unusual pain, numbness, tingling, coolness, loss of sensation, and change in color or temperature. Signs of infection: Swelling at site, redness, drainage, warm to touch, fever over 101 degrees and chills, or the site does not heal.Remove safeguard tomorrow evening. documented in this encounter Reason for Referral Status Reason Specialty Diagnoses / Procedures Referre d By Contact Referred To Contact [facility] Diagnoses SOB (shortness of breath) Hypertension, unspecified type Diabetes mellitus without complication (HCC) Procedures EKG 12 Lead Pacheco Carter MD [address] [place] [address] Status Reason Specialty Diagnoses / Procedures Referre d By Contact Referred To Contact [facility] Diagnoses Atrial fibrillation, new onset (HCC) Procedures EKG 12 Lead Pacheco Carter MD [address] [place] [address] Specialty Diagnoses / Procedures Referred By Contac t Referred To Contact Cardiology Diagnoses Atrial fibrillation, new onset (HCC) Procedures EKG 12 Lead Pacheco Carter MD [address] [place] [address] Referral ID Status Reason Start Date Expiration Date Visits Re quested Visits Authorized Open 03/12/2022 03/12/2023 1 1 Specialty Diagnoses / Procedures Referred By Contac t Referred To Contact Cardiology Diagnoses Abnormal EKG Chest pain, unspecified type Procedures Stress test, Pacheco Santo MD [address] [place] [id number] Referral ID Status Reason Start Date Expiration Date Visits Re quested Visits Authorized [id number] Closed 09/17/2022 09/17/2023 4 4 Assessments Diagnosis SOB (shortness of breath) Shortness of breath Hypertension, unspecified type Diabetes mellitus without complication (HCC) Type II or unspecified type diabetes mellitus without mention of complication, not stated as uncontrolled Diagnosis SOB (shortness of breath) Shortness of breath Hypertension, unspecified type Diabetes mellitus without complication (HCC) Type II or unspecified type diabetes mellitus without mention of complication, not stated as uncontrolled Renal insufficiency Unspecified disorder of kidney and ureter Chief Complaint and Reason for Visit Chief Complaint Screening Chief Complaint Screening + cologaurd Chief Complaint Screening + cologaurd + cologaurd Chief Complaint Admit Date z12.November 25, 2024 2:1 0pm Additional Source Comments INFORMATION SOURCE (unrecogn ized section and content) DATE CREATED AUTHOR 06/09/2019 [facility] DATE CREATED AUTHOR AUTHOR'S ORGANIZ ATION 11/17/2021 [facility] Specialist DATE CREATED AUTHOR AUTHOR'S ORGANIZ ATION 02/28/2022 [facility] DATE CREATED AUTHOR AUTHOR'S ORGANIZ ATION 09/20/2022 [facility] DATE CREATED AUTHOR AUTHOR'S ORGANIZ ATION 12/13/2022 [facility] DATE CREATED AUTHOR AUTHOR'S ORGANIZ ATION 10/25/2024 [facility] DATE CREATED AUTHOR AUTHOR'S ORGANIZ ATION 11/11/2024 [facility] Specialists EPIC DATE CREATED AUTHOR AUTHOR'S ORGANIZ ATION 11/27/2024 [facility] Niru Carter MD - 05/18/2019 7:40 AM EDT H&P Notes (unrecognized sect ion and content) Niru Carter M.D. [facility] [address] [place] [address] May 17, 2019 Aashish Laguna MD [address] [place] [address] RE: Patricia Blake : [address] Laguna: CHIEF COMPLAINT: 1. Coronary artery disease. 2. Hypertension. 3. Shortness of breath. 4. Abnormal Cardiolite stress test. HISTORY OF PRESENT ILLNESS: I had the pleasure of seeing Ms. Blake in our office on 05/17/2019. She is a pleasant 69-year-old female, who I saw on 04/12/2019. She began developing chest pain and shortness of breath in 2015, and had a stress test that showed anterior wall ischemia. A catheterization on 12/05/2015, showed 95% disease in the ostium of the LAD with an unremarkable right coronary artery and circumflex, EF of 60%. I did an angioplasty of the LAD placing 2.75 x 14 mm drug-eluting Xience stent with a good end result. She developed more shortness of breath over the last 4 to 5 months. She had shortness of breath when attempting to walk to the car. She also began developing some chest pain consistent with angina. I saw her on 04/12/2019. We ordered a Lexiscan Cardiolite stress test and an echocardiogram. The stress test was abnormal showing decreased perfusion anteroseptally. I brought her back for further evaluation. We placed her on full-medical therapy. However, she continues to have severe shortness of breath with any activity consistent with angina. She was back to go over the results of the test and to schedule a cardiac catheterization. We placed her on Imdur daily. We increased this on 05/14, to 30 mg twice a day. She has had no PND or orthopnea. No pedal edema. No syncope or near syncope. CARDIAC RISK FACTORS: Known CAD: Positive. Hypertension: Positive. Hyperlipidemia: Positive. Other Family Members: Positive. Smoking: Negative. Diabetes: Positive. Peripheral Vascular Disease: Negative. MEDICATIONS: At home, she is currently on Norvasc 5 mg two tablets daily, vitamin C daily, aspirin 81 mg daily, Lipitor 10 mg daily, Wellbutrin 150 mg b.i.d., Lopid 60 mg b.i.d., Imdur 30 mg b.i.d., Cytomel 5 mcg one and a half in the morning and one tablet in the evening, Glucophage 1000 mg b.i.d., Lopressor 25 mg b.i.d. PAST MEDICAL HISTORY: 1. Cholecystectomy in 1959. 2. Finger surgery in 1969. 3. Breast reduction in 1999. 4. Hypertension. 5. Hyperlipidemia. 6. Nephrolithiasis. 7. Depression. 8. Posttraumatic stress syndrome. 9. Hypothyroidism. 10. Cataract. 11. Cardiac as above. FAMILY HISTORY: Mother at 73 of an [place]. Father of [place] at 76. Three brothers at 64, 55, and 76. One sister had an [place] at 79. SOCIAL HISTORY: She is 69 years old. Never . No children. Lives in [place]. 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 She has not been exercising because of marked shortness of breath with exertion. REVIEW OF SYSTEMS: Cardiac as above. Other systems reviewed including constitutional, eyes, ears, nose and throat, cardiovascular, respiratory, GI, , musculoskeletal, integumentary, neurologic, psychiatric, endocrine, hematologic and allergic/immunologic are negative except for described above. No weight loss or weight gain. No change in bowel habits. No blood in stools. No fevers, sweats, or chills. She had had marked shortness of breath and chest pain, new in the last 4 to 5 months. PHYSICAL EXAMINATION: VITAL SIGNS: Her blood pressure was 136/70 with a heart rate of 77 and regular. Respirations were 18. O2 saturation 97%. Weight 233 pounds. GENERAL: She is a pleasant 69-year-old female. Denied pain. She was oriented to person, place and time. Answered questions appropriately. SKIN: No unusual skin changes. HEENT: The pupils are equally round and intact. Mucous membranes were dry. NECK: No JVD. Good carotid pulses. No carotid bruits. No lymphadenopathy or thyromegaly. CARDIOVASCULAR EXAM: S1 and S2 were normal. No S3 or S4. Soft systolic blowing type murmur. No diastolic murmur. PMI was normal. No lift, thrust, or pericardial friction rub. LUNGS: Quite clear to auscultation and percussion. ABDOMEN: Soft and nontender. Good bowel sounds. EXTREMITIES: Good femoral pulses. Good pedal pulses. No pedal edema. Skin was warm and dry. No calf tenderness. Nail beds pink. Good cap refill. PULSES: Bilateral symmetrical radial, brachial and carotid pulses. No carotid bruits. Good femoral and pedal pulses. NEUROLOGIC EXAM: Within normal limits. PSYCHIATRIC EXAM: Within normal limits. LABORATORY DATA: From today, sodium 142, potassium 4.0, BUN 29, creatinine 0.78, GFR was greater than 60. Calcium was 10.8. Cholesterol 112 with an HDL 34, LDL 55, triglycerides 113. ALT was 16, AST was 20. White count was 7.2, hemoglobin 10.8 with a platelet count 209,000. IMPRESSION: 1. Marked increasing shortness of breath over the last 6 months, which is her anginal equivalent. 2. Abnormal Cardiolite stress test in 2015, with anterior wall ischemia. 3. Catheterization on 12/05/2015, showing 95% disease in the ostium of the LAD with an unremarkable right coronary artery and circumflex, EF of 60%. 4. Angioplasty and stenting of the LAD on 12/05/2015, placing a 2.75 x 14 mm drug-eluting Xience stent. 5. Abnormal Lexiscan Cardiolite stress test in April at [place] showing anterior wall ischemia or infarct, intermediate risk of coronary artery disease. 6. Hypertension, very labile. 7. Hyperlipidemia, in good control. 8. History of depression. 9. Very strong family history of coronary artery disease. PLAN: We will proceed with cardiac catheterization if she continues to have class III angina on full-medical therapy. DISCUSSION: Ms. Blake is on full-medical therapy. However, she continues to have marked shortness of breath, which is her anginal equivalent. We discussed cardiac catheterization and the need to repeat the catheterization to see if she has redeveloped her coronary artery disease and she has redeveloped her angina. She has agreed to proceed with this. Thank you very much for allowing me the privilege of seeing Ms. Blake. If you have any questions on my thoughts, please do not hesitate to contact me. Sincerely, NIRU CARTER [id number] Doc#: [id number] documented in this encounter Reason for Visit (unrecogniz ed section and content) Status Reason Specialty Diagnoses / Procedures Re ferred By Contact Referred To Contact Closed Cardiology Diagnoses Unspecified atrial fibrillation Procedures CO CARDIOVERSION ELECTIVE ARRHYTHMIA EXTERNAL Pacheco Carter MD [address] [place] [id number] [facility] Cardiology [address] [place] [address] Specialty Diagnoses / Procedures Referred By Contac t Referred To Contact Diagnoses Atrial fibrillation, new onset (HCC) SOB (shortness of breath) I48.91 (ICD-10-CM) - Atrial fibrillation, new onset (HCC) Procedures Holter Monitor 48 Hour CO CARDIOVERSION ELECTIVE ARRHYTHMIA EXTERNAL [id number] - CO CARDIOVERSION ELECTIVE ARRHYTHMIA EXTERNAL Pacheco Carter MD [address] [place] [id number] Referral ID Status Reason Start Date Expiration Date Visits Re quested Visits Authorized [id number] Closed 05/02/2021 05/02/2022 1 1 Specialty Diagnoses / Procedures Referred By Contac t Referred To Contact Cardiology Diagnoses Abnormal EKG Chest pain, unspecified type Procedures Stress test, lexiscPacheco Srivastava MD [address] [place] [phone] Referral ID Status Reason Start Date Expiration Date Visits Re quested Visits Authorized [id number] Closed 09/17/2022 09/17/2023 4 4 Reason Comments Hypothyroidism Reason Comments Hypertension Hyperlipidemia Diabetes Reason Comments Anxiety Sleeping Problem Reason Comments Gynecologic Exam Medicare yearly.LMP: 2004HRT: NoneLast pap 08-14-22 neg.Last mammogram 10-02-23 [facility] [place].Denies breast, urinary, or bowel concerns. Care Teams (unrecognized sec tion and content) Drop Pit Worker Relationship Specialty Start Date End Date Aashish Laguna MD PCP - General 11/14/16 Drop Pit Worker Relationship Specialty Start Date End Date Aashish Laguna MD PCP - General 11/14/16 Drop Pit Worker Relationship Specialty Start Date End Date Aashish Laguna MD PCP - General 11/14/16 Drop Pit Worker Relationship Specialty Start Date End Date Aashish Laguna MD PCP - General 11/14/16 Team Status: Inactive Member Role Status Dates Aashish Laguna MD Primary Care Provider, Attending Provider Active Team Status: Active Member Role Status Dates Aashish Laguna MD Primary Care Provider Active Team Status: Inactive Member Role Status Dates Aashish Laguna MD Primary Care Provider Active Jewel José DO Attending Provider Active Team Status: Inactive Member Role Status Dates Aashish Laguna MD Primary Care Provider Active Start: October 02, 2023 End: October 02, 2023 Angel Russ DO Attending Provider Active Start: October 02, 2023 End: October 02, 2023 Drop Pit Worker Relationship Specialty Start Date End Date Aashish Laguna MD [address] [place] [phone] (Fax) PCP - ACO Reach 01/30/23 Aashish Laguna MD [address] [place] [address] PCP - General Family Medicine 03/20/23 Niru Carter MD [address] [place], [place] [phone] Referring Physician Cardiology 08/20/23 Drop Pit Worker Relationship Specialty Start Date End Date Aashish Laguna MD [address] [place], [place] [address] [place] [address] (Fax) PCP - ACO Reach 01/30/23 Aashish Laguna MD [address] [place] [address] PCP - General Family Medicine 03/20/23 Niru Carter MD [address] [phone] Referring Physician Cardiology 08/20/23 Drop Pit Worker Relationship Specialty Start Date End Date Aashish Laguna MD [address] [place] [address] (Fax) PCP - ACO Reach 01/30/23 Aashish Laguna MD [address] [place] [address] (Fax) PCP - General Family Medicine 03/20/23 Niru Carter MD [address] [place] [address] Referring Physician Cardiology 08/20/23 Niru Castle MD [address] [place] [address] Referring Physician Urology 12/02/23 Drop Pit Worker Relationship Specialty Start Date End Date Aashish Laguna MD [address] [place] [address] (Fax) PCP - ACO Reach 01/30/23 Aashish Laguna MD [address] [place] [address] (Fax) PCP - General Family Medicine 03/20/23 Niru Carter MD [address] [phone] Referring Physician Cardiology 08/20/23 Niru Castle MD [address] [place] [address] Referring Physician Urology 12/02/23 Drop Pit Worker Relationship Specialty Start Date End Date Aashish Laguna MD [address] [place] [address] PCP - ACO Reach 01/30/23 Aashish Laguna MD [address] [place] [address] PCP - General Family Medicine 03/20/23 Niru Carter MD [address] [phone] Referring Physician Cardiology 08/20/23 Niru Castle MD [address] [place] [address] Referring Physician Urology 12/02/23 Drop Pit Worker Relationship Specialty Start Date End Date Aashish Laguna MD [address] [place] [address] (Fax) PCP - ACO Reach 01/30/23 Aashish Laguna MD [address] [place] [address] PCP - General Family Medicine 03/20/23 Niru Carter MD [address] [place] [address] Referring Physician Cardiology 08/20/23 Niru Castle MD [address] [place] [address] Referring Physician Urology 12/02/23 Drop Pit Worker Relationship Specialty Start Date End Date Aashish Laguna MD [address] [place] [address] PCP - ACO Reach 01/30/23 Aashish Laguna MD [address] [place] [phone] PCP - General Family Medicine 03/20/23 Niru Carter MD [address] [phone] Referring Physician Cardiology 08/20/23 Niru Castle MD [address] [place] [address] Referring Physician Urology 12/02/23 Drop Pit Worker Relationship Specialty Start Date End Date Aashish Laguna MD [address] [place] [address] PCP - ACO Reach 01/30/23 Aashish Laguna MD [address] [place] [phone] PCP - General Family Medicine 03/20/23 Niru Carter MD [address] [place] [address] Referring Physician Cardiology 08/20/23 Niru Castle MD [address] [place] [address] Referring Physician Urology 12/02/23 Drop Pit Worker Relationship Specialty Start Date End Date Aashish Laguna MD [address] [place] [address] PCP - ACO Reach 01/30/23 Aashish Laguna MD [address] [place] [phone] PCP - General Family Medicine 03/20/23 Niru Carter MD [address] [phone] Referring Physician Cardiology 08/20/23 Niru Castle MD [address] [place] [address] Referring Physician Urology 12/02/23 Drop Pit Worker Relationship Specialty Start Date End Date Aashish Laguna MD [address] [place] [address] PCP - ACO Reach 01/30/23 Aashish Laguna MD [address] [place] [address] PCP - General Family Medicine 03/20/23 Niru Carter MD [address] [place] [address] Referring Physician Cardiology 08/20/23 Niru Castle MD [address] [place] [address] Referring Physician Urology 12/02/23 Drop Pit Worker Relationship Specialty Start Date End Date Aashish Laguna MD [address] [place] [address] PCP - ACO Reach 01/30/23 Aashish Laguna MD [address] [address] PCP - General Family Medicine 03/20/23 Niru Carter MD [address] [place] [address] Referring Physician Cardiology 08/20/23 Niru Castle MD [address] [place] [address] Referring Physician Urology 12/02/23 Drop Pit Worker Relationship Specialty Start Date End Date Aashish Laguna MD [address] [address] PCP - ACO Reach 01/30/23 Aashish Laguna MD [address] [place] [address] PCP - General Family Medicine 03/20/23 Niru Carter MD [address] [place], [place] [phone] Referring Physician Cardiology 08/20/23 Niru Castle MD [address] [place] [address] Referring Physician Urology 12/02/23 Team Status: Inactive Member Role Status Dates Aashish Laguna MD Primary Care Provider Active Start: November 25, 2024 End: November 25, 2024 Angel Russ DO Attending Provider Active Start: November 25, 2024 End: November 25, 2024 Goals (unrecognized section and content) Goals may be documented in a n alternate section FOR RECORDS PERTAINING TO PATIENTS WHO ARE OR HAVE BEEN ENROLLED IN A CHEMICAL DEPENDENCY/SUBSTANCEABUSE PROGRAM, SOME INFORMATION MAY BE OMITTED. This clinical summary was aggregated from multiple sources. Caution should be exercised in using it in the provision of clinical care. This summary normalizes information from multiple sources, and as a consequence, information in this document may materially change the coding, format and clinical context of patient data. In addition, data may be omitted in some cases. CLINICAL DECISIONS SHOULD BE BASED ON THE PRIMARY CLINICAL RECORDS. [employer] provides no warranty or guarantee of the accuracy or completeness of information in this document.
--- NOTE | 2024-11-27 21:22 | ECG_ITS ---
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 Measurements Intervals [place] Rate: 135 P: -[id number] HI: -29622 QRS: 82 QRSD: 82 T: 34 QT: 290 QTc: 369 Interpretive Statements [id number] Atrial fibrillation with rapid ventricular response 2420 RSR (QR) in lead V1/V2, consistent with right ventricular conduction delay [address] depression, probably digitalis effect 8102 Low QRS voltage in chest leads 9150 abnormal ECG Compared to ECG 03/12/2024 08:09:49 Low QRS voltage now present ST (T wave) deviation still present Electronically Signed On 11-29-2024 7:05:03 EDT by BRI PERKINS M.D.
--- NOTE | 2024-11-27 21:32 | ED.GENADUL1 ---
HPI HPI - General Adult General Chief complaint: Arrhythmia/Palpitations Stated complaint: FALL, AFIB Time Seen by Provider: 11/27/24 21:27 Source: patient Source information: EMS and pt Mode of arrival: ambulance History of Present Illness HPI narrative: history of [place] States gout attack right foot since yesterday. Lives alone. This AM was not able to get off the commode. She then laid on the floor and spent the whole day trying to get up and finally decided to call [facility] for help. Has not taken any of her heart medications. Related Data Home Medications ?Medication ?Instructions ?Recorded ?Confirmed albuterol sulfate 90 mcg/actuation 2 inh inhalation Q6H PRN shortness 06/01/23 11/28/24 aerosol inhaler of breath or wheezing apixaban 5 mg tablet (Eliquis) 5 mg PO BID 06/01/23 11/28/24 atorvastatin 10 mg tablet 10 mg PO DAILY 06/01/23 11/28/24 bupropion HCl 150 mg tablet,12 hr 150 mg PO Q12H 06/01/23 11/28/24 sustained-release diltiazem HCl 120 mg 120 mg PO Q12H 06/01/23 11/28/24 capsule,extended release 24 hr furosemide 20 mg tablet 20 mg PO DAILY 06/01/23 11/27/24 gemfibrozil 600 mg tablet 600 mg PO BID 06/01/23 11/28/24 isosorbide mononitrate 30 mg 30 mg PO DAILY 06/01/23 11/28/24 tablet,extended release 24 hr liothyronine 5 mcg tablet 5 mcg PO BID 06/01/23 11/28/24 metformin 1,000 mg tablet 1,000 mg PO BID 06/01/23 11/28/24 levothyroxine 300 mcg tablet 150 mcg PO DAILY 06/02/23 11/28/24 (Unithroid) Previous Rx's ?Medication ?Instructions ?Recorded allopurinol 300 mg tablet 300 mg PO DAILY #30 tabs 11/29/24 cefdinir 300 mg capsule 600 mg (2 x 300 mg) PO DAILY #14 11/29/24 caps prednisone 10 mg tablet 40 mg (4 x 10 mg) PO DAILY #32 tabs 11/29/24 metoprolol tartrate 100 mg tablet 100 mg PO BID #0 tabs 12/01/24 Allergies Allergy/AdvReac Type Severity Reaction Status Date / Time Penicillins Allergy Intermediate Rash Verified 11/29/24 08:18 Sulfa (Sulfonamide AdvReac Intermediate Rash Verified 11/29/24 08:18 Antibiotics) Opioid HPI Opioid Management Most Recent Opioid Data: Last Pain Scale 0 12/01/24 11:09 12/01/24 Last Pain Assessment 12/01/24 13:10 Last MAR Pain Assessment 11/30/24 09:31 Last ORT Total Score 0 11/28/24 05:00 11/28/24 Last ORT Risk Category Low Risk 11/28/24 05:00 11/28/24 PFSH PFS Medical History (Updated 12/01/24 @ 10:01 by Jose Daniel Hawkins MD) Acute UTI (urinary tract infection) ?N39.0 - Urinary tract infection, site not specified (ICD-10) Hypercholesterolemia ?E78.00 - Pure hypercholesterolemia, unspecified (ICD-10) Anemia (05/14/23) ?D64.9 - Anemia, unspecified (ICD-10) Arthritis of left knee (10/16/22) ?M17.12 - Unilateral primary osteoarthritis, left knee (ICD-10) Atrophic vaginitis (05/14/23) ?N95.2 - Postmenopausal atrophic vaginitis (ICD-10) Bilateral enlargement of atria (05/14/23) ?I51.7 - Cardiomegaly (ICD-10) Chest pain (12/13/16) ?R07.9 - Chest pain, unspecified (ICD-10) Chronic dermatitis ?L30.9 - Dermatitis, unspecified (ICD-10) Chronic fatigue syndrome (11/04/22) ?G93.32 - Myalgic encephalomyelitis/chronic fatigue syndrome (ICD-10) Chronic post-traumatic stress disorder (10/16/22) ?F43.12 - Post-traumatic stress disorder, chronic (ICD-10) Chronic vulvitis ?N76.3 - Subacute and chronic vulvitis (ICD-10) Degeneration of thoracic intervertebral disc (05/14/23) ?M51.34 - Other intervertebral disc degeneration, thoracic region (ICD-10) Detrusor overactivity (02/27/22) ?N32.81 - Overactive bladder (ICD-10) Diabetes mellitus without complication (12/13/16) ?E11.9 - Type 2 diabetes mellitus without complications (ICD-10) Dyspnea (12/13/16) ?R06.00 - Dyspnea, unspecified (ICD-10) Dyspnea on exertion ?R06.09 - Other forms of dyspnea (ICD-10) Electrocardiogram abnormal (09/17/22) ?R94.31 - Abnormal electrocardiogram [ECG] [EKG] (ICD-10) Fibrocystic disease of breast (05/14/23) ?N60.19 - Diffuse cystic mastopathy of unspecified breast (ICD-10) Hearing loss (05/14/23) ?H91.90 - Unspecified hearing loss, unspecified ear (ICD-10) Heart murmur (05/14/23) ?R01.1 - Cardiac murmur, unspecified (ICD-10) Hypertensive disorder (04/20/18) ?I10 - Essential (primary) hypertension (ICD-10) Hyperuricemia ?E79.0 - Hyperuricemia without signs of inflammatory arthritis and tophaceous disease (ICD-10) Incomplete emptying of bladder ?R33.9 - Retention of urine, unspecified (ICD-10) Incomplete uterovaginal prolapse (05/14/23) ?N81.2 - Incomplete uterovaginal prolapse (ICD-10) Iron deficiency anemia ?D50.9 - Iron deficiency anemia, unspecified (ICD-10) Kidney stone ?N20.0 - Calculus of kidney (ICD-10) Microalbuminuric diabetic nephropathy (05/14/23) ?E11.21 - Type 2 diabetes mellitus with diabetic nephropathy (ICD-10) Mixed hyperlipidemia (10/16/22) ?E78.2 - Mixed hyperlipidemia (ICD-10) Morbid obesity (05/14/23) ?E66.01 - Morbid (severe) obesity due to excess calories (ICD-10) Omphalitis ?P38.9 - Omphalitis without hemorrhage (ICD-10) Overactive bladder ?N32.81 - Overactive bladder (ICD-10) Primary gout ?M10.00 - Idiopathic gout, unspecified site (ICD-10) Pulmonary hypertension (05/14/23) ?I27.20 - Pulmonary hypertension, unspecified (ICD-10) Recurrent major depression in partial remission (05/14/23) ?F33.41 - Major depressive disorder, recurrent, in partial remission (ICD-10) Renal impairment ?N28.9 - Disorder of kidney and ureter, unspecified (ICD-10) Restrictive lung disease (05/14/23) ?J98.4 - Other disorders of lung (ICD-10) Sick-euthyroid syndrome (11/08/22) ?E07.81 - Sick-euthyroid syndrome (ICD-10) Venous insufficiency of leg (05/04/24) ?I87.2 - Venous insufficiency (chronic) (peripheral) (ICD-10) Vitamin D deficiency (12/13/16) ?E55.9 - Vitamin D deficiency, unspecified (ICD-10) Acquired hypothyroidism (11/08/22) ?E03.9 - Hypothyroidism, unspecified (ICD-10) Atrial fibrillation (02/12/22) ?I48.91 - Unspecified atrial fibrillation (ICD-10) Coronary arteriosclerosis (05/14/23) ?I25.10 - Atherosclerotic heart disease of habematolel coronary artery without angina pectoris (ICD-10) CKD stage 3b, GFR 30-44 ml/min ?N18.32 - Chronic kidney disease, stage 3b (ICD-10) Paroxysmal atrial fibrillation ?I48.0 - Paroxysmal atrial fibrillation (ICD-10) Atrial fibrillation ?I48.91 - Unspecified atrial fibrillation (ICD-10) Pneumonia ?J18.9 - Pneumonia, unspecified organism (ICD-10) Congestive heart failure ?I50.9 - Heart failure, unspecified (ICD-10) Depression ?F32.A - Depression, unspecified (ICD-10) Gout ?M10.9 - Gout, unspecified (ICD-10) Type 2 diabetes mellitus ?E11.9 - Type 2 diabetes mellitus without complications (ICD-10) Chronic a-fib ?I48.20 - Chronic atrial fibrillation, unspecified (ICD-10) Gallbladder & bile duct stone with obstruction ?K80.71 - Calculus of gallbladder and bile duct without cholecystitis with obstruction (ICD-10) Surgical History (Updated 11/28/24 @ 04:55 by Nelia Ramos) History of cholecystectomy ?Z90.49 - Acquired absence of other specified parts of digestive tract (ICD-10) Family History Other Family history of CHF (congestive heart failure) Family history of diabetes mellitus Family history of hypertension Family history of myocardial infarction Family history of stroke Social History (Updated 11/28/24 @ 04:56 by Nelia Ramos) Within the past year, how often did you have a drink containing alcohol: never Within the past year, how often did you have six or more drinks on one occasion: never Score interpretation: A score less than 3 is consistent with normal alcohol consumption. 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: Helped [employer] Highest level of school completed/degree received: 12th grade, no diploma Little interest or pleasure in doing things: several days Feeling down, depressed, or hopeless: not at all Do you think of yourself as: straight/heterosexual Gender Identity: female Exam Constitutional Vital Signs, click to edit/add: Last Vital Signs Temp 97.8 F 12/01/24 10:17 Pulse 90 12/01/24 10:17 Resp 18 12/01/24 10:17 BP 140/84 12/01/24 10:17 Pulse Ox 95 12/01/24 10:17 O2 Del Method Room Air 12/01/24 10:17 Course Course Hospital Course: Reason for admission: See H&P fro details. 74 y/o female to ER after a fall. History of gout and woke up yesterday with severe pain in right foot. Foot red and warm to touch. Sat on commode and not able to stand due to pain. Laid on floor all day and not able to get up. History of afib and did not take medication. Called EMS in evening and brought to ER. In ER found rapid afib and rate 150s-160s. Gave dose IV cardizem then started drip. Labs showed evidence of rhabdo with elevated myoglobin. UA showed UTI. Did not give fluids due to history HFpEF. Echo May 2023 showed EF 55-60%. Admitted for treatment. Hospital course: Started IV fluids for rhabdo. Weaned off cardizem drip and resumed home medication. Uric acid elevated and started prednisone. Increased allopurinol. Remained in afib and increased metoprolol which controlled heart rate. Continued pain in foot. Started PT and had difficulty with ambulation. Added cholchecine. Urine culture showed UTI due to K. pneumoniae but sensitive to Rocephin. PT recommended SNF. Vitals stable. Labs improved. Discharged to SNF in stable condition. Will continue increased dose of allopurinol and metoprolol. Continue cefdinir for UTI. Resume home medication as directed. Vital Signs Vital signs: Vital Signs Pulse Rate 122 H 11/27/24 21:17 Respiratory Rate 22 H 11/27/24 21:17 Temperature 97.8 F 12/01/24 10:17 Pulse Rate 90 12/01/24 10:17 Respiratory Rate 18 12/01/24 10:17 Blood Pressure 140/84 12/01/24 10:17 Pulse Oximetry 95 12/01/24 10:17 Oxygen Delivery Method Room Air 12/01/24 10:17 Medical Decision Making MDM Narrative Medical decision making narrative: patient presents from home because she was too weak to get off the commode . She lives alone. Also have gout flare right foot that started yesterday. She crawled on the floor for hours trying to get herself up before finally calling [facility]. Arrives in no distress. Known history of A. fib . Was not able to take her heart medications. Monitor finds her in A. Fib with RVR. Given dose of diltiazem and started on a drip. Rate decreased from 130-140 down to 90 120s. Troponin neg. UA positive and patient given dose of Rocephin. Discussed with the hospitalist and patient accepted for admission Lab Data Labs: Lab Results 11/27/24 11/28/24 Range/Units 21:28 00:06 WBC 9.8 (4.0-11.0) 10^3/uL RBC 3.87 L (4.20-5.40) 10^6/uL Hgb 10.6 L (12.0-16.0) g/dL Hct 33.9 L (36.0-48.0) % MCV 87.6 (81.0-99.0) fL MCH 27.4 (26.7-34.0) pg MCHC 31.3 (29.9-35.2) g/dL RDW 16.1 H (11.0-15.0) % Plt Count 181 (150-450) 10^3/uL MPV 12.2 (9.5-13.5) fL Neut % (Auto) 73.3 (43.0-75.0) % Lymph % (Auto) 19.5 L (20.5-60.0) % [place] % (Auto) 6.6 (1.7-12.0) % Eos % (Auto) 0.2 L (0.9-7.0) % Baso % (Auto) 0.2 (0.2-2.0) % Neut # (Auto) 7.2 H (1.4-6.5) 10^3/uL Lymph # (Auto) 1.9 (1.2-3.8) 10^3/uL [place] # (Auto) 0.7 (0.3-0.8) 10^3/uL Eos # (Auto) 0.0 (0.0-0.7) 10^3/uL Baso # (Auto) 0.0 (0.0-0.1) 10^3/uL Abs Immat Gran (auto) 0.02 (0.00-0.03) 10^3/uL Imm/Tot Granulo (auto) 0.2 (0.0-0.5) % Sodium 138 (136-145) mmol/L Potassium 3.4 L (3.5-5.1) mmol/L Chloride 104 (98-107) mmol/L Carbon Dioxide 25.6 (21.0-32.0) mmol/L Anion Gap 11.8 BUN 21.0 H (7.0-18.0) mg/dL Creatinine 0.99 (0.55-1.02) mg/dL Est GFR ( Amer) >60 (>=60 mL/min/1.73m^2) Est GFR (Non-Af Amer) 55 L (>=60 mL/min/1.73m^2) BUN/Creatinine Ratio 21.2 Glucose 102 (74-106) mg/dL Calcium 9.4 (8.5-10.1) mg/dL Myoglobin 232 H (9-82) ng/mL Troponin I High Sens 15.9 (4.0-51.3) pg/mL Urine Color Yellow (YELLOW) Urine Clarity Sl cloudy (CLEAR) Urine pH 5.5 (5.0-9.0) Ur Specific [place] >=1.030 A (1.005-1.025) Urine Protein Trace (NEG/TRACE) mg/dL Urine Glucose (UA) Negative (NEGATIVE) mg/dL Urine Ketones 40 A (NEGATIVE) mg/dL Urine Occult Blood Small A (NEGATIVE) Urine Nitrite Positive A (NEGATIVE) Urine Bilirubin Negative (NEGATIVE) Urine Urobilinogen 0.2 (0.2-1.0) EU/dL Ur Leukocyte Esterase Small A (NEGATIVE) Urine RBC None seen (0-2) #/HPF Urine WBC 2-5 A (NONE SEEN) #/HPF Ur Squamous Epith Cells Rare (NONE/RARE) #/LPF Urine Crystals None seen (None Seen) #/HPF Urine Bacteria Large A (NONE SEEN) #/HPF Urine Casts None seen (NONE SEEN) #/LPF Urine Mucus None seen (NONE SEEN) Ur Culture Indicated? Yes-[facility] [place] Plan Discharge Chief Complaint: Arrhythmia/Palpitations Clinical Impression: Atrial fibrillation, Acute UTI (urinary tract infection) Gout flare Qualifiers: Gout site: foot Gout etiology: idiopathic Laterality: right Qualified Code(s): M10.071 - Idiopathic gout, right ankle and foot Patient Disposition: Admitted as Observation Discharge Date/Time: 11/28/24 04:35
[2024-11-27 21:40] LABS: Basophils Percent Auto 0.2 % (0.2-2.0); Eosinophils Percent Auto 0.2 % (0.9-7.0); Hematocrit 33.9 % (36.0-48.0); Hemoglobin 10.6 g/dL (12.0-16.0); Immature Granulocytes Abs Auto 0.02 10^3/uL (0.00-0.03); Immature Granulocytes Pct Auto 0.2 % (0.0-0.5); Lymphocytes Absolute Auto 1.9 10^3/uL (1.2-3.8); Lymphocytes Percent Auto 19.5 % (20.5-60.0); Mean Corpuscular HGB Conc 31.3 g/dL (29.9-35.2); Mean Corpuscular Hemoglobin 27.4 pg (26.7-34.0); Mean Corpuscular Volume 87.6 fL (81.0-99.0); Mean Platelet Volume 12.2 fL (9.5-13.5); Monocytes Absolute Auto 0.7 10^3/uL (0.3-0.8); Monocytes Percent Auto 6.6 % (1.7-12.0); Neutrophils Absolute Auto 7.2 10^3/uL (1.4-6.5); Neutrophils Percent Auto 73.3 % (43.0-75.0); Platelet Count 181 10^3/uL (150-450); Red Blood Count 3.87 10^6/uL (4.20-5.40); Red Cell Distribution Width 16.1 % (11.0-15.0); White Blood Count 9.8 10^3/uL (4.0-11.0)
[2024-11-27 22:00] LABS: Anion Gap 11.8; BUN Creatinine Ratio 21.2; Calcium 9.4 mg/dL (8.5-10.1); Carbon Dioxide 25.6 mmol/L (21.0-32.0); Chloride 104 mmol/L (98-107); Estimated GFR (African America >60 (>=60 mL/min/1.73m^2); Estimated GFR (Non-African Ame 55 (>=60 mL/min/1.73m^2); Glucose 102 mg/dL (74-106); Myoglobin 232 ng/mL (9-82); Potassium 3.4 mmol/L (3.5-5.1); Sodium 138 mmol/L (136-145); Troponin I High Sensitivity 15.9 pg/mL (4.0-51.3)
[2024-11-27] MEDS: DILTIAZEM HCL 25 MG/5 ML VIAL 10 MG IV (22:10)
[2024-11-27] MEDS: dilTIAZem HCL 125 MG in 0.9 % SODIUM CHLORIDE 100 ML 10 MG IV (22:17)
[2024-11-28] VITALS (125 sets, daily range): BP systolic 89–169; BP diastolic 39–119; PULSE 84–126; TEMP 36.9; O2SAT 86–100; BMI 41.6
[2024-11-28 00:32] LABS: Bilirubin Urine NEGATIVE (NEGATIVE); Blood Urine SMALL (NEGATIVE); Clarity Urine SL CLOUDY (CLEAR); Color Urine YELLOW (YELLOW); Glucose Urine UA NEGATIVE (NEGATIVE); Ketones Urine 40 mg/dL (NEGATIVE); Leukocyte Esterase Urine SMALL (NEGATIVE); Nitrite Urine POSITIVE (NEGATIVE); Protein Urine TRACE mg/dL (NEG/TRACE); Specific Gravity Urine >=1.030 (1.005-1.025); Urobilinogen Urine 0.2 EU/dL (0.2-1.0); pH Urine 5.5 (5.0-9.0)
[2024-11-28 00:34] LABS: Bacteria Urine LARGE #/HPF (NONE SEEN); Cast Seen? NONE SEEN #/LPF (NONE SEEN); Crystals Seen? None Seen #/HPF (None Seen); Mucus Urine NONE SEEN (NONE SEEN); RBC Urine NONE SEEN #/HPF (0-2); Squamous Epithelial Cell Urine RARE #/LPF (NONE/RARE)
[2024-11-28 00:35] LABS: Urine Culture Indicated YES-FRMC
[2024-11-28] MEDS: CEFTRIAXONE 1,000 MG in 0.9 % SODIUM CHLORIDE 50 ML 100 MG IV ×2 (02:28→23:19)
--- NOTE | 2024-11-28 02:50 | PC.NURSE ---
Meghan calls back and speaks with Dr Brothers.
--- OUTSIDE RECORDS SUMMARY | 2024-11-28 04:33 | XMS_ITS | CCD ---
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 Hand Name Role Phone NIRU CARTER Admitting Unavailab NIRU Sage Attending Unavailab yajaira NO, PHYSICIAN Primary Care Unavailable Aashish Laguna Primary Care Provider Aashish Laguna Primary Care Provider Aashish Laguna Primary Care Provider Aashish Laguna MD Primary Care Provider [phone] Aashish Laguna MD Primary Care Provider AASHISH LAGUNA Primary Care Physician Aashish Laguna MD Primary Care Provider [phone] ARAMESNURA PACHECO S Referring Unavailable AASHISH LAGUNA [...] Unavailable MD Aashish Laguna Primary Care Provider MD Aashish Laguna Attending Provider MD Aashish Laguna Primary Care Provider MD Aashish Laguna Attending Provider DO Jewel José Attending Provider DR AASHISH SELLERS Primary Care Unavailable DR [...] Care Provider DO Angel Russ Attending Provider Aashish Laguna MD Unavailable Aashish Laguna MD Primary Care Provider Niru Carter MD Unavailable Aashish Laguna MD Unavailable [phone] Aashish Laguna MD Primary Care Provider Niru Castle MD Unavailable Aashish Laguna MD Unavailable Aashish Laguna MD Primary Care Provider AASHISH LAGUNA Attending Unavailable AASHISH LAGUNA Attending Unavailable AASHISH LAGUNA Attending Unavailable AASHISH LAGUNA Attending Unavailable AASHISH LAGUNA Attending Unavailable AASHISH LAGUNA Attending Unavailable AASHISH LAGUNA Attending Unavailable ANGEL RUSS Attending Unavailable Aashish Laguna MD Primary Care Provider [phone] Angel Russ DO Attending Provider Aashish Laguna Primary Care Unavailable Angel Russ Attending Unavailable Angel Russ Admitting Unavailable Allergies Allergy Classification Reported Allergen(s) Allergy Type Date of Onset Reaction(s) Facility (20 sources) Lisinopril; Translations: [Unknown] Drug Allergy 8 Swelling, Swelling (finding) [facility] Repository (15 sources) Penicillins; Translations: [penicillins] Propensity to adverse reactions to drug 7 Rash, Unknown (qualifier value) [place], [place] (13 sources) Sulfanilamide Drug Allergy 7 Other (See Comments) [place], [place] (20 sources) Amino Acids Drug Allergy 2 [facility] (1 source) Sulfonamides (Antibiotic); Translations: [sulfa drugs] Drug allergy Unknown (qualifier value) [facility] (1 source) Sulfonamides (Antibiotic) Drug allergy (disorder) 7 [facility] (18 sources) Amoxicillin Drug Allergy 3 [facility] Work Phone: (18 sources) Penicillin G Drug Allergy 3 Rash [facility] (18 sources) Sulfanilamide Allergy to substance 3 [facility] Medications Current Medications Medication Drug Class(es) Dates Sig (Normalized) Sig (Original) [id number] 200 actuat albuterol 0.09 mg/actuat metered dose [...] B complex with C 20-folic acid (b ijkggqk-J-aznri acid) 1 mg cap (2 sources) take 1 capsule by mouth twice daily B complex with C 20-folic acid (b vnwiksq-K-kzxcj acid) 1 mg cap Take 1 capsule [...] Active Start: 05-01-2021 take 1 capsule by [place] ut[facility] once daily dilTIAZem (CARDIZEM CD) 120 [...] hr tablet Indications: 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 TAKE ONE TABLET [...] BP is less than 90 mmHG, notify Heel Builder, place patient in Trendelenberg, and give 0.9% [...] Coronary arteriosclerosis; Translations: [Atherosclerotic heart disease of iroquois coronary artery without angina pectoris] Onset: 3 [...] 05-14-2023 Chronic Other aftercare (1 source) Other longterm (current) drug therapy; Translations: [OTH SOFTWARE SUPPORT TECHNICIAN CURRENT DRUG THERAPY] Onset: 3 Episodic Other aftercare (1 source) 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; Translations: [SOFTWARE SUPPORT TECHNICIAN USE ORAL HYPOGLYCEMIC DX] Onset: 3 Episodic [...] Onset: 12-02-2023 12-02-2023 Other aftercare (1 source) 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; Translations: [SOFTWARE SUPPORT TECHNICIAN CURRNT USE ANTICOAGULANTS] Onset: 09-06-2022 Episodic Other [...] n 11-25-2024 MM screening mammo BI w/CAD [facility] [address] [place] [address] Mammography Report Signed Patient: Patricia Blake MR#: [id number] : 1950 Acct:[id number] Age/Sex: 74 / F Adm Date: 11/25/24 Loc: [place] Room: Type: [facility] Attending Dr: Angel Russ DO Ordering Provider: Angel Russ DO Date of Service: 11/25/24 Procedure(s): MM screening mammo BI w/CAD Accession Number(s): ([id number]) MM/MM screening mammo BI w/CAD: SCREENING Copies [...] Savi Prather M.D.11/25/2024 3:02 PM Dictation Location: [facility] Dictated By: Savi Prather MD 11/25/24 1459 Signed By: 11/25/24 1500 Normal [facility] Mammography reportOrdered By : Savi Prather on 11-25-2024 Diagnostic imaging study [facility] [address] [place] [address] Mammography Report Signed Patient: Patricia Blake MR#: [id number] : 1950 Acct:[id number] Age/Sex: 74 / F Adm Date: 5 Loc: [place] Room: Type: [facility] Attending Dr: Angel Russ DO Ordering Provider: Angel Russ DO Date of Service: 11/25/24 Procedure(s): MM screening mammo BI w/CAD Accession Number(s): ([id number]) MM/MM screening mammo BI w/CAD: SCREENING Copies to: MD Angel Vera DO~ CLINICAL DATA: Screening for malignancy. [...] [id number] Dictated By: Savi Prather MD 11/25/24 1450 Signed By: 11/25/24 2059 [facility] Work Phone: T3 REVERSE, LC/MS/MSon 10-23 T3 REVERSE, LC/MS/MS 17 ng/dL Normal 8-25 [facility] Comment on above: Order Comment: FASTI NG:NO FASTING: NO Result Comment: This test was developed and its analytical performance characteristics have been determined by [facility] [place], [place]. It has not been cleared or approved by the U.S. Food and Drug Administration. This assay has been validated pursuant to the CLIA regulations and is used for clinical purposes. Performed By: #### 8 66, 859, 189, [id number] #### [facility] [address], [address] [place] [address] Paste Up Artist Apprentice: Jaylon Bagley MD #### [id number] #### [facility]/[address] [place], [place] Paste Up Artist Apprentice: Gian Collins M.D.,PhD T3, FREEon 10-23-2024 Free T3 [Mass/Vol] 3.2 pg/mL Normal 2.3-4.2 [facility] Comment on above: Performed By: #### 8 66, 859, 125, [id number] #### [facility] [address], [address] [place] [address] Paste Up Artist Apprentice: Jaylon Bagley MD #### [id number] #### [facility]/[place] [id number] [facility] [place], [place] Paste Up Artist Apprentice: Gian Collins M.D.,PhD T3, TOTALon 10-23-2024 T3, TOTAL 131 ng/dL Normal 76-181 [facility] Comment on above: Performed By: #### 8 66, 859, 182, [id number] #### [facility] [address], [address] [place] [address] Paste Up Artist Apprentice: Jaylon Bagley MD #### [id number] #### [facility]/[place] [id number] [facility] [place] Paste Up Artist Apprentice: Gian Collins M.D.,PhD T4, FREEon 10-23-2024 Free T4 [Mass/Vol] 1.2 ng/dL Normal 0.8-1.8 [facility] Comment on above: Performed By: #### 8 66, 859, 899, [id number] #### [facility] [address], [address] [place] [address] Paste Up Artist Apprentice: Jaylon Bagley MD #### [id number] #### [facility]/[place] [id number] [facility] [place] Paste Up Artist Apprentice: Gian Collins M.D.,PhD TSHon 10-23-2024 TSH Qn 1.47 m[IU]/L Normal 0.40-4.50 [facility] Comment on above: Performed By: #### 8 66, 859, 899, [id number] #### [facility] [address], [address] [place] [address] Paste Up Artist Apprentice: Jaylon Bagley MD #### [id number] #### [facility] [id number] [facility] [place] Paste Up Artist Apprentice: Gian Collins M.D.,PhD T3, TOTAL (TRIIODOTHYRONINE) on 11-05-2022 T3, TOTAL 174 ng/dL Normal 71-180 [facility] Comment on above: Performed By: #### C BC #### [facility] [address] [address] [address] Sami William CBC AUTO DIFFon 10-18-2022 BASO # 0.0 103/ul Normal 0.0-0.1 [facility] Comment on above: Performed By: #### C BC #### [facility] [address] [address] [address] Sami William Basophils/100 WBC (Bld) 0.3 % Normal 0.2-2.0 [facility] Comment on above: Performed By: #### C BC #### [facility] [address] [place] [address] Dr. Sami William EO # 0.1 103/ul Normal 0.0-0.7 [facility] Comment on above: Performed By: #### C BC #### [facility] [address] [place] [address] Dr. Sami William Eosinophils/100 WBC (Bld) 1.2 % Normal 0.9-7.0 [facility] Comment on above: Performed By: #### C BC #### [facility] [address] [place] [address] Dr. Sami William Erythrocyte distribution width (RBC) [Ratio] 15.7 % Critically high 11.0-15.0 [facility] Comment on above: Performed By: #### C BC #### [facility] [address] [place] [address] Dr. Sami William Hematocrit (Bld) [Volume fraction] 35.9 % Critically low 36.0-48.0 [facility] Comment on above: Performed By: #### C BC #### [facility] [address] [place] [address] Dr. Sami William Hemoglobin (Bld) [Mass/Vol] 11.1 g/dL Critically low 12.0-16.0 [facility] Comment on above: Performed By: #### C BC #### [facility] [address] [place] [address] Dr. Sami William IG # 0.03 10e3/ul Normal 0.00-0.03 [facility] Comment on above: Performed By: #### C BC #### [facility] [address] [place] [address] Dr. Sami William IG % 0.4 % Normal 0.0-0.5 [facility] Comment on above: Performed By: #### C BC #### [facility] [address] [place] [address] Dr. Sami William LYMPH # 1.5 103/ul Normal 1.2-3.8 [facility] Comment on above: Performed By: #### C BC #### [facility] [address] [place] [address] Dr. Sami William Lymphocytes/100 WBC (Bld) 19.2 % Critically low 20.5-60.0 [facility] Comment on above: Performed By: #### C BC #### [facility] [address] [place] [address] Dr. Sami William MANUAL DIFF REQ NO Normal [facility] Comment on above: Performed By: #### C BC #### [facility] [address] [place] [address] Dr. Sami William MCH (RBC) [Entitic mass] 26.9 pg Normal 26.7-34.0 [facility] Comment on above: Performed By: #### C BC #### [facility] [address] [place] [address] Dr. Sami William MCHC (RBC) [Mass/Vol] 30.9 g/dL Normal 29.9-35.2 [facility] Comment on above: Performed By: #### C BC #### [facility] [address] [place] [address] Dr. Sami William MCV (RBC) [Entitic vol] 87.1 fL Normal 81.0-99.0 [facility] Comment on above: Performed By: #### C BC #### [facility] [address] [place] [address] Dr. Sami William MONO # 0.5 103/ul Normal 0.3-0.8 [facility] Comment on above: Performed By: #### C BC #### [facility] [address] [place] [address] Dr. Sami William Monocytes/100 WBC (Bld) 7.0 % Normal 1.7-12.0 [facility] Comment on above: Performed By: #### C BC #### [facility] [address] [place] [address] Dr. Sami William NEUT # 5.6 103/ul Normal 1.4-6.5 [facility] Comment on above: Performed By: #### C BC #### [facility] [address] [address] [address] Sami William Neutrophils/100 WBC (Bld) 71.9 % Normal 43.0-75.0 [facility] Comment on above: Performed By: #### C BC #### [facility] [address] [address] [address] Sami William Platelet mean volume (Bld) [Entitic vol] 12.1 fL Normal 9.5-13.5 [facility] Comment on above: Performed By: #### C BC #### [facility] [address] [address] [address] Sami William PLT 213 103/ul Normal 150-450 [facility] Comment on above: Performed By: #### C BC #### [facility] [address] [place] [address] Dr. Sami William RBC 4.12 106/ul Critically low 4.20-5.40 [facility] Comment on above: Performed By: #### C BC #### [facility] [address] [address] [address] Sami William WBC 7.7 103/ul Normal 4.0-11.0 [facility] Comment on above: Performed By: #### C BC #### [facility] [address] [place] [address] Dr. Sami William PROF CHEM 8 (BAS METB)on Anion gap [Moles/Vol] 15.5 mmol/L Normal [facility] Comment on above: Performed By: #### T SH, FT3 #### [facility] [address] [address] [address] Sami William Calcium [Mass/Vol] 10.0 mg/dL Normal 8.5-10.1 [facility] Comment on above: Performed By: #### T SH, FT3 #### [facility] [address] [address] [address] Sami William Chloride [Moles/Vol] 105 mmol/L Normal 98-107 [facility] Comment on above: Performed By: #### T SH, FT3 #### [facility] [address] [address] [address] Sami William CO2 [Moles/Vol] 28.1 mmol/L Normal 21.0-32.0 [facility] Comment on above: Performed By: #### T SH, FT3 #### [facility] [address] [address] [address] Sami William Creatinine [Mass/Vol] 0.84 mg/dL Normal 0.55-1.02 [facility] Comment on above: Performed By: #### T SH, FT3 #### [facility] [address] [place] [address] Dr. Sami William EGFR-AF NIGERIEN >60 Normal >=60 [facility] Comment on above: Performed By: #### T SH, FT3 #### [facility] [address] [place] [address] Dr. Sami William EGFR-NON AF NIGERIEN >60 Normal >=60 [facility] Comment on above: Performed By: #### T SH, FT3 #### [facility] [address] [place] [address] Dr. Sami William Glucose [Mass/Vol] 114 mg/dL Critically high 74-106 [facility] Comment on above: Performed By: #### T SH, FT3 #### [facility] [address] [place] [address] Dr. Sami William Potassium [Moles/Vol] 3.6 mmol/L Normal 3.5-5.1 [facility] Comment on above: Performed By: #### T SH, FT3 #### [facility] [address] [address] [address] Sami William Sodium [Moles/Vol] 145 mmol/L Normal 136-145 [facility] Comment on above: Performed By: #### T SH, FT3 #### [facility] [address] [address] [address] Sami Willaim Urea nitrogen [Mass/Vol] 21.0 mg/dL Critically high 7.0-18.0 [facility] Comment on above: Performed By: #### T SH, FT3 #### [facility] [address] [address] [address] Sami William Urea nitrogen/Creatinine [Mass ratio] 25.0 mg/mg Normal [facility] Comment on above: Performed By: #### T SH, FT3 #### [facility] [address] [address] [address] Sami William SED RATE WESTERGRENon 2022 SED RATE 100 mm/hr Critically high <=30 [facility] Comment on above: Performed By: #### C BC #### [facility] [address] [place] [address] Dr. Sami William URIC ACID SERUMon 10-18-2022 Urate [Mass/Vol] 9.6 mg/dL Critically high 2.6-6.0 [facility] Comment on above: Performed By: #### T , FT3 #### [facility] [address] [place] [address] Dr. Sami William CARDIAC STRESS TESTon 2022 [place] [address] CARDIAC STRESS TEST PATIENT NAME: PATRICIA BLAKE : 1950 MED REC NO: [id number] ROOM: ACCOUNT NO: [id number] ADMIT DATE: 09/17/2022 PROVIDER: Niru Carter MD [...] to follow. NIRU CARTER MD [id number] Doc#: [id number] CC: Aashish Laguna Normal [facility] CARDIAC STRESS TEST [facility] [address] [place] [address] CARDIAC STRESS TEST PATIENT NAME: PATRICIA BLAKE : 1950 MED REC NO: [id number] ROOM: ACCOUNT NO: [id number] ADMIT DATE: 09/17/2022 PROVIDER: Kevin Dangelo DATE [...] Doc#: Unknown CC: Aashish Carter MD Normal [facility] Stress test, lexiscanon 09-08 Kevin Dangelo MD - 09/18/2022 10:17 AM EST [facility] [address] [place] [address] CARDIAC STRESS TEST PATIENT NAME: PATRICIA BLAKE : 1950 MED REC NO: [id number] ROOM: ACCOUNT NO: [id number] ADMIT DATE: 09/17/2022 PROVIDER: Kevin Dangelo DATE [...] EARL/IGNACIO_RESHMAIT Doc#: Unknown CC: Aashish Carter MD [facility] [employer] Phone: Stress test, lexiscanOrdered By: Kevin Dangelo on 09-18-2022 [employer] Phone: NM MYOCARDIAL SPECT REST EXE RCISE OR RXon 09-17-2022 NM MYOCARDIAL SPECT REST EXERCISE OR RX Radiology exam is complete. No Radiologist dictation. Please follow up with ordering provider. Final result Normal [facility] No Panel Informationon 09-17 Radiology exam is complete. No Radiologist dictation. Please follow up with ordering provider. [facility] RIS CONSOLIDATED CULTURE URINEon 09-08-2022 CULTURE URINE [...] F Trimethoprim/Sulfam ethoxazole <=20 S F Normal [facility] Comment on above: Performed By: #### C BC #### [facility] [address] [place] [address] Dr. Sami William BNPon 09-05-2022 Natriuretic peptide B (Bld) [Mass/Vol] 1013.0 pg/mL Critically high <=900.0 [facility] Comment on above: Performed By: #### H STROPN, LIPA, BNP, CMP #### [facility] [address] [place] [address] Dr. Sami William CBC AUTO DIFFon 09-05-2022 BASO # 0.0 103/ul Normal 0.0-0.1 [facility] Comment on above: Performed By: #### T SH, FT3 #### [facility] [address] [place] [address] Dr. Sami William Basophils/100 WBC (Bld) 0.3 % Normal 0.2-2.0 [facility] Comment on above: Performed By: #### T , FT3 #### [facility] [address] [place] [address] Dr. Sami William EO # 0.1 103/ul Normal 0.0-0.7 [facility] Comment on above: Performed By: #### T SH, FT3 #### [facility] [address] [place] [address] Dr. Sami William Eosinophils/100 WBC (Bld) 1.1 % Normal 0.9-7.0 [facility] Comment on above: Performed By: #### T SH, FT3 #### [facility] [address] [place] [address] Dr. Sami William Erythrocyte distribution width (RBC) [Ratio] 15.7 % Critically high 11.0-15.0 [facility] Comment on above: Performed By: #### T SH, FT3 #### [facility] [address] [place] [address] Dr. Sami William Hematocrit (Bld) [Volume fraction] 35.5 % Critically low 36.0-48.0 [facility] Comment on above: Performed By: #### T SH, FT3 #### [facility] [address] [place] [address] Dr. Sami William Hemoglobin (Bld) [Mass/Vol] 11.0 g/dL Critically low 12.0-16.0 [facility] Comment on above: Performed By: #### T KINA, FT3 #### [facility] [address] [place] [address] Dr. Sami William IG # 0.04 10e3/ul Critically high 0.00-0.03 [facility] Comment on above: Performed By: #### T SH, FT3 #### [facility] [address] [place] [address] Dr. Sami William IG % 0.5 % Normal 0.0-0.5 [facility] Comment on above: Performed By: #### T KINA, FT3 #### [facility] [address] [place] [address] Dr. Sami William LYMPH # 2.0 103/ul Normal 1.2-3.8 [facility] Comment on above: Performed By: #### T SH, FT3 #### [facility] [address] [place] [address] Dr. Sami William Lymphocytes/100 WBC (Bld) 27.7 % Normal 20.5-60.0 [facility] Comment on above: Performed By: #### T SH, FT3 #### [facility] [address] [place] [address] Dr. Sami William MANUAL DIFF REQ NO Normal [facility] Comment on above: Performed By: #### T SH, FT3 #### [facility] [address] [place] [address] Dr. Sami William MCH (RBC) [Entitic mass] 27.0 pg Normal 26.7-34.0 [facility] Comment on above: Performed By: #### T SH, FT3 #### [facility] [address] [place] [address] Dr. Sami William MCHC (RBC) [Mass/Vol] 31.0 g/dL Normal 29.9-35.2 [facility] Comment on above: Performed By: #### T KINA, FT3 #### [facility] [address] [place] [address] Dr. Sami William MCV (RBC) [Entitic vol] 87.2 fL Normal 81.0-99.0 [facility] Comment on above: Performed By: #### T KINA, FT3 #### [facility] [address] [place] [address] Dr. Sami William MONO # 0.4 103/ul Normal 0.3-0.8 [facility] Comment on above: Performed By: #### T KINA, FT3 #### [facility] [address] [place] [address] Dr. Sami William Monocytes/100 WBC (Bld) 5.3 % Normal 1.7-12.0 [facility] Comment on above: Performed By: #### T KINA, FT3 #### [facility] [address] [place] [address] Dr. Sami William NEUT # 4.7 103/ul Normal 1.4-6.5 [facility] Comment on above: Performed By: #### T KINA, FT3 #### [facility] [address] [place] [address] Dr. Sami William Neutrophils/100 WBC (Bld) 65.1 % Normal 43.0-75.0 [facility] Comment on above: Performed By: #### T KINA, FT3 #### [facility] [address] [place] [address] Dr. Sami William Platelet mean volume (Bld) [Entitic vol] 13.1 fL Normal 9.5-13.5 [facility] Comment on above: Performed By: #### T KINA, FT3 #### [facility] [address] [place] [address] Dr. Sami William PLT 211 103/ul Normal 150-450 [facility] Comment on above: Performed By: #### T KINA, FT3 #### [facility] [address] [place] [address] Dr. Sami William RBC 4.07 106/ul Critically low 4.20-5.40 [facility] Comment on above: Performed By: #### T KINA, FT3 #### [facility] [address] [place] [address] Dr. Sami William WBC 7.3 103/ul Normal 4.0-11.0 [facility] Comment on above: Performed By: #### T KINA, FT3 #### [facility] [address] [place] [address] Dr. Sami William ER URINE PROFILEon 2 Bilirubin Ql (U) Negative Normal NEGATIVE [facility] Comment on above: Performed By: #### C BC #### [facility] [address] [place] [address] Dr. Sami William Clarity (U) CLEAR Normal CLEAR [facility] Comment on above: Performed By: #### C BC #### [facility] [address] [place] [address] Dr. Sami William Color (U) LT. YELLOW Normal YELLOW [facility] Comment on above: Performed By: #### C BC #### [facility] [address] [place] [address] Dr. Sami William ERUAMBROSED A micrscopic examination will be performed if indicated. Normal [facility] Comment on above: Performed By: #### C BC #### [facility] [address] [place] [address] Dr. Sami William Glucose Ql (U) Negative Normal NEGATIVE [facility] Comment on above: Performed By: #### C BC #### [facility] [address] [place] [address] Dr. Sami William Hemoglobin Ql (U) Negative Normal NEGATIVE [facility] Comment on above: Performed By: #### C BC #### [facility] [address] [place] [address] Dr. Sami William Ketones Ql (U) Negative Normal NEGATIVE [facility] Comment on above: Performed By: #### C BC #### [facility] [address] [place] [address] Dr. Sami William LEUKOCYTES MODERATE Abnormal NEGATIVE [facility] Comment on above: Performed By: #### C BC #### [facility] [address] [place] [address] Dr. Sami William Nitrite Ql (U) Positive Abnormal NEGATIVE [facility] Comment on above: Performed By: #### C BC #### [facility] [address] [place] [address] Dr. Sami William pH (U) 6.5 [pH] Normal 5-9 [facility] Comment on above: Performed By: #### C BC #### [facility] [address] [place] [address] Dr. Sami William SPEC GRAVITY 1.010 Normal 1.005-<=1.02 5 [facility] Comment on above: Performed By: #### C BC #### [facility] [address] [place] [address] Dr. Sami William UA PROTEIN Negative Normal NEGATIVE/ TRACE [facility] Comment on above: Performed By: #### C BC #### [facility] [address] [place] [address] Dr. Sami Willima UR MICRO IND INDICATED Normal [facility] Comment on above: Performed By: #### C BC #### [facility] [address] [place] [address] Dr. Sami Wliliam Urobilinogen Qn (U) 0.2 {Sunni'U}/dL Normal 0.2 - 1. 0 [facility] Comment on above: Performed By: #### C BC #### [facility] [address] [place] [address] Dr. Sami William LIPASEon 09-05-2022 Lipase [Catalytic activity/Vol] 121.0 U/L Normal 73.0-393.0 [facility] Comment on above: Performed By: #### H STROPN, LIPA, BNP, CMP #### [facility] [address] [place] [address] Dr. Sami William PROF 14(COMP METB)on 022 Albumin [Mass/Vol] 3.7 g/dL Normal 3.4-5.0 [facility] Comment on above: Performed By: #### H STROPN, LIPA, BNP, CMP #### [facility] [address] [place] [address] Dr. Sami William Albumin/Globulin [Mass ratio] 0.9 {ratio} Normal [facility] Comment on above: Performed By: #### H STROPN, LIPA, BNP, CMP #### [facility] [address] [place] [address] Dr. Sami William ALP [Catalytic activity/Vol] 73 U/L Normal 46-116 [facility] Comment on above: Performed By: #### H STROPN, LIPA, BNP, CMP #### [facility] [address] [place] [address] Dr. Sami William ALT [Catalytic activity/Vol] 23 U/L Normal 14-59 [facility] Comment on above: Performed By: #### H STROPN, LIPA, BNP, CMP #### [facility] [address] [place] [address] Dr. Sami William Anion gap [Moles/Vol] 16.4 mmol/L Normal [facility] Comment on above: Performed By: #### H STROPN, LIPA, BNP, CMP #### [facility] [address] [place] [address] Dr. Sami William AST [Catalytic activity/Vol] 23 U/L Normal 15-37 [facility] Comment on above: Performed By: #### H STROPN, LIPA, BNP, CMP #### [facility] [address] [place] [address] Dr. Sami William Bilirubin [Mass/Vol] 0.3 mg/dL Normal 0.2-1.0 [facility] Comment on above: Performed By: #### H STROPN, LIPA, BNP, CMP #### [facility] [address] [address] [address] Sami William Calcium [Mass/Vol] 9.4 mg/dL Normal 8.5-10.1 [facility] Comment on above: Performed By: #### H STROPN, LIPA, BNP, CMP #### [facility] [address] [place] [address] Dr. Sami William Chloride [Moles/Vol] 102 mmol/L Normal 98-107 [facility] Comment on above: Performed By: #### H STROPN, LIPA, BNP, CMP #### [facility] [address] [place] [address] Dr. Sami William CO2 [Moles/Vol] 28.5 mmol/L Normal 21.0-32.[address] [facility] Comment on above: Performed By: #### H STROPN, LIPA, BNP, CMP #### [facility] [address] [place] [address] Dr. Sami William Creatinine [Mass/Vol] 1.07 mg/dL Critically high 0.55-1.02 [facility] Comment on above: Performed By: #### H STROPN, LIPA, BNP, CMP #### [facility] [address] [place] [address] Dr. Sami William EGFR-AF NIGERIEN >60 Normal >=[address] [facility] Comment on above: Performed By: #### H STROPN, LIPA, BNP, CMP #### [facility] [address] [place] [address] Dr. Sami William EGFR-NON AF NIGERIEN 50 mL/min/1.73m2 Critically low >=60 [facility] Comment on above: Performed By: #### H STROPN, LIPA, BNP, CMP #### [facility] [address] [place] [address] Dr. Sami William Globulin (S) [Mass/Vol] 3.9 g/dL Normal [facility] Comment on above: Performed By: #### H STROPN, LIPA, BNP, CMP #### [facility] [address] [address] [address] Sami William Glucose [Mass/Vol] 166 mg/dL Critically high 74-106 [facility] Comment on above: Performed By: #### H STROPN, LIPA, BNP, CMP #### [facility] [address] [address] [address] Sami William Potassium [Moles/Vol] 3.9 mmol/L Normal 3.5-5.1 [facility] Comment on above: Performed By: #### H STROPN, LIPA, BNP, CMP #### [facility] [address] [address] [address] Sami William Protein [Mass/Vol] 7.6 g/dL Normal 6.4-8.2 [facility] Comment on above: Performed By: #### H STROPN, LIPA, BNP, CMP #### [facility] [address] [address] [address] Sami William Sodium [Moles/Vol] 143 mmol/L Normal 136-145 [facility] Comment on above: Performed By: #### H STROPN, LIPA, BNP, CMP #### [facility] [address] [address] [address] Sami William Urea nitrogen [Mass/Vol] 21.0 mg/dL Critically high 7.0-18.0 [facility] Comment on above: Performed By: #### H STROPN, LIPA, BNP, CMP #### [facility] [address] [address] [address] Sami William Urea nitrogen/Creatinine [Mass ratio] 19.6 mg/mg Normal [facility] Comment on above: Performed By: #### H STROPN, LIPA, BNP, CMP #### [facility] [address] [address] [address] Sami William PROTIMEon 09-05-2022 INR Coag (PPP) [Relative time] 1.10 {INR} Normal [facility] Comment on above: Performed By: #### T , FT3 #### [facility] [address] [place] [address] Dr. Sami William INR GUIDELINES SEE BELOW Normal [facility] Comment on above: Result Comment: FANG RED INR: 2.0 - 3.0 CONDITIONS NOT LISTED BELOW 2.5 - 3.5 FOR PROSTHETIC HEART VALVE REPLACEMENT 2.5 - 3.5 RECURRENT THROMBOSIS Performed By: #### T , FT3 #### [facility] [address] [place] [address] Dr. Sami William PT Coag (PPP) [Time] 11.8 s Critically high 9.0-11.6 [facility] Comment on above: Performed By: #### T , FT3 #### [facility] [address] [place] [address] Dr. Sami William PTTon 09-05-2022 aPTT Coag (Bld) [Time] 28.1 s Normal 22.3-36.2 [facility] Comment on above: Performed By: #### T , FT3 #### [facility] [address] [place] [address] Dr. Sami William TROPONIN, HIGH SENSITIVITYon 09-05-2022 HSTROP 10.3 pg/mL Normal 4.0-51.3 [facility] Comment on above: Result Comment: CUT- OFF POINTS HAVE BEEN ESTABLISHED BASED ON THE FOURTH UNIVERSAL DEFINITIONS OF MYOCARDIAL INFARCTION. THE UPPER REFERENCE LIMIT (URL) OF TROPONIN, DEFINED THE 99TH PERCENTILE OF cTnI DISTRIBUTION IN A REFERENCE POPULATION, HAS BEEN CONFIRMED THE DECISION THRESHOLD FOR TX DIAGNOSIS. Performed By: #### H STROPN, LIPA, BNP, CMP #### [facility] [address] [place] [address] Dr. Sami William URINE MICROSCOPIC ONLYon BACTERIA LARGE Abnormal NONE SEEN [facility] Comment on above: Performed By: #### C BC #### [facility] [address] [place] [address] Dr. Sami William Bacteria identified Cx Nom (U) INDICATED Normal [facility] Comment on above: Performed By: #### C BC #### [facility] [address] [place] [address] Dr. Sami William CAST NONE SEEN Normal NONE SEEN [facility] Comment on above: Performed By: #### C BC #### [facility] [address] [place] [address] Dr. Sami William Crystals LM Nom (Urine sed) NONE SEEN Normal NONE SEEN [facility] Comment on above: Performed By: #### C BC #### [facility] [address] [place] [address] Dr. Sami William Epithelial cells LM Ql (Urine sed) FEW Abnormal NONE SEEN /RARE [facility] Comment on above: Performed By: #### C BC #### [facility] [address] [place] [address] Dr. Sami William MUCOUS NONE SEEN Normal NONE SEEN [facility] Comment on above: Performed By: #### C BC #### [facility] [address] [place] [address] Dr. Sami William RBC NONE SEEN Abnormal 0-2 [facility] Comment on above: Performed By: #### C BC #### [facility] [address] [place] [address] Dr. Sami William WBC 20-50 Abnormal NONE SEEN [facility] Comment on above: Performed By: #### C BC #### [facility] [address] [place] [address] Dr. Sami William XR CHEST 1 Von [...] OLENA RAMON Date: 2022-09-05 12:54 Normal [facility] CBC AUTO DIFFon 08-29-2022 BASO # 0.0 103/ul Normal 0.0-0.1 [facility] Comment on above: Performed By: #### C BC #### [facility] [address] [address] [address] Sami William Basophils/100 WBC (Bld) 0.4 % Normal 0.2-2.0 [facility] Comment on above: Performed By: #### C BC #### [facility] [address] [address] [address] Sami William EO # 0.1 103/ul Normal 0.0-0.7 [facility] Comment on above: Performed By: #### C BC #### [facility] [address] [address] [address] Sami William Eosinophils/100 WBC (Bld) 1.5 % Normal 0.9-7.0 [facility] Comment on above: Performed By: #### C BC #### [facility] [address] [address] [address] Sami William Erythrocyte distribution width (RBC) [Ratio] 15.8 % Critically high 11.0-15.0 [facility] Comment on above: Performed By: #### C BC #### [facility] [address] [address] [address] Sami William Hematocrit (Bld) [Volume fraction] 35.8 % Critically low 36.0-48.0 [facility] Comment on above: Performed By: #### C BC #### [facility] [address] [address] [address] Sami William Hemoglobin (Bld) [Mass/Vol] 10.8 g/dL Critically low 12.0-16.0 [facility] Comment on above: Performed By: #### C BC #### [facility] [address] [address] [address] Sami William IG # 0.04 10e3/ul Critically high 0.00-0.03 [facility] Comment on above: Performed By: #### C BC #### [facility] [address] [place] [address] Dr. Sami William IG % 0.5 % Normal 0.0-0.5 [facility] Comment on above: Performed By: #### C BC #### [facility] [address] [place] [address] Dr. Sami William LYMPH # 2.0 103/ul Normal 1.2-3.8 [facility] Comment on above: Performed By: #### C BC #### [facility] [address] [place] [address] Dr. Sami William Lymphocytes/100 WBC (Bld) 27.1 % Normal 20.5-60.0 [facility] Comment on above: Performed By: #### C BC #### [facility] [address] [place] [address] Dr. Sami William MANUAL DIFF REQ NO Normal [facility] Comment on above: Performed By: #### C BC #### [facility] [address] [place] [address] Dr. Sami William MCH (RBC) [Entitic mass] 26.7 pg Normal 26.7-34.0 [facility] Comment on above: Performed By: #### C BC #### [facility] [address] [place] [address] Dr. Sami William MCHC (RBC) [Mass/Vol] 30.2 g/dL Normal 29.9-35.2 [facility] Comment on above: Performed By: #### C BC #### [facility] [address] [place] [address] Dr. Sami William MCV (RBC) [Entitic vol] 88.4 fL Normal 81.0-99.0 [facility] Comment on above: Performed By: #### C BC #### [facility] [address] [place] [address] Dr. Sami William MONO # 0.5 103/ul Normal 0.3-0.8 [facility] Comment on above: Performed By: #### C BC #### [facility] [address] [place] [address] Dr. Sami William Monocytes/100 WBC (Bld) 6.4 % Normal 1.7-12.0 [facility] Comment on above: Performed By: #### C BC #### [facility] [address] [place] [address] Dr. Sami William NEUT # 4.8 103/ul Normal 1.4-6.5 [facility] Comment on above: Performed By: #### C BC #### [facility] [address] [place] [address] Dr. Sami William Neutrophils/100 WBC (Bld) 64.1 % Normal 43.0-75.0 [facility] Comment on above: Performed By: #### C BC #### [facility] [address] [place] [address] Dr. Sami William Platelet mean volume (Bld) [Entitic vol] 12.8 fL Normal 9.5-13.5 [facility] Comment on above: Performed By: #### C BC #### [facility] [address] [place] [address] Dr. Sami William PLT 204 103/ul Normal 150-450 [facility] Comment on above: Performed By: #### C BC #### [facility] [address] [place] [address] Dr. Sami William RBC 4.05 106/ul Critically low 4.20-5.40 [facility] Comment on above: Performed By: #### C BC #### [facility] [address] [place] [address] Dr. Sami William WBC 7.5 103/ul Normal 4.0-11.0 [facility] Comment on above: Performed By: #### C BC #### [facility] [address] [place] [address] Dr. Sami William FREE T4on 08-29-2022 Free T4 [Mass/Vol] 0.86 ng/dL Normal 0.76-1.46 [facility] Comment on above: Performed By: #### V ITAD, FT4 #### [facility] [address] [place] [address] Dr. Sami William LIPID PROFILEon 08-29-2022 CHOL-HDL RATIO NORM SEE BELOW Normal [facility] Comment on above: Result Comment: 3.3 - 4.4 LOW RISK 4.4 - 7.1 AVERAGE RISK 7.1 - 11.0 MODERATE RISK >11.0 HIGH RISK Performed By: #### T SH, FT3 #### [facility] [address] [address] [address] Sami William Cholesterol [Mass/Vol] 109 mg/dL Normal <=200 Th [facility] Comment on above: Performed By: #### T SH, FT3 #### [facility] [address] [address] [address] Sami William Cholesterol in HDL [Mass/Vol] 31 mg/dL Critically low 40-60 [facility] Comment on above: Performed By: #### T SH, FT3 #### [facility] [address] [address] [address] Sami William Cholesterol in LDL [Mass/Vol] 49.0 mg/dL Normal [facility] Comment on above: Performed By: #### T SH, FT3 #### [facility] [address] [address] [address] Sami William Cholesterol.total/Salome sterol in HDL [Mass ratio] 3.5 {ratio} Normal [facility] Comment on above: Performed By: #### T SH, FT3 #### [facility] [address] [address] [address] Sami William HDL NORMAL > or = 60 mg/dl - LOW CARDIOVASCULAR RISK <40 mg/dl - HIGH CARDIOVASCULAR RISK Normal [facility] Comment on above: Performed By: #### T SH, FT3 #### [facility] [address] [address] [address] Sami William LDL CALC NORMAL SEE BELOW Normal [facility] Comment on above: Result Comment: <100 mg/dl OPTIMAL 100 - 129 mg/dl NEAR OR ABOVE OPTIMAL 130 - 159 mg/dl BORDERLINE HIGH 160 - 189 mg/dl HIGH >190 mg/dl VERY HIGH Performed By: #### T SH, FT3 #### [facility] [address] [place] [address] Dr. Sami William Triglyceride [Mass/Vol] 145 mg/dL Normal <=150 [facility] Comment on above: Performed By: #### T , FT3 #### [facility] [address] [place] [address] Dr. Sami William VLDL CALC 29.0 mg/dL Normal [facility] Comment on above: Performed By: #### T , FT3 #### [facility] [address] [place] [address] Dr. Sami William MAGNESIUMon 08-29-2022 Magnesium [Mass/Vol] 2.1 mg/dL Normal 1.8-2.4 [facility] Comment on above: Performed By: #### T , FT3 #### [facility] [address] [place] [address] Dr. Sami William PROF 14(COMP METB)on 022 Albumin [Mass/Vol] 3.7 g/dL Normal 3.4-5.0 [facility] Comment on above: Performed By: #### T , FT3 #### [facility] [address] [place] [address] Dr. Sami William Albumin/Globulin [Mass ratio] 1.0 {ratio} Normal [facility] Comment on above: Performed By: #### T , FT3 #### [facility] [address] [place] [address] Dr. Sami William ALP [Catalytic activity/Vol] 66 U/L Normal 46-116 [facility] Comment on above: Performed By: #### T , FT3 #### [facility] [address] [place] [address] Dr. Sami William ALT [Catalytic activity/Vol] 33 U/L Normal 14-59 [facility] Comment on above: Performed By: #### T SH, FT3 #### [facility] [address] [place] [address] Dr. Sami William Anion gap [Moles/Vol] 12.1 mmol/L Normal [facility] Comment on above: Performed By: #### T SH, FT3 #### [facility] [address] [address] [address] Sami William AST [Catalytic activity/Vol] 35 U/L Normal 15-37 [facility] Comment on above: Performed By: #### T SH, FT3 #### [facility] [address] [place] [address] Dr. Sami William Bilirubin [Mass/Vol] 0.2 mg/dL Normal 0.2-1.0 [facility] Comment on above: Performed By: #### T SH, FT3 #### [facility] [address] [place] [address] Dr. Sami William Calcium [Mass/Vol] 9.4 mg/dL Normal 8.5-10.1 [facility] Comment on above: Performed By: #### T SH, FT3 #### [facility] [address] [place] [address] Dr. Sami William Chloride [Moles/Vol] 103 mmol/L Normal 98-107 [facility] Comment on above: Performed By: #### T SH, FT3 #### [facility] [address] [place] [address] Dr. Sami William CO2 [Moles/Vol] 30.9 mmol/L Normal 21.0-32.0 [facility] Comment on above: Performed By: #### T SH, FT3 #### [facility] [address] [place] [place] [address] Dr. Sami William Creatinine [Mass/Vol] 1.18 mg/dL Critically high 0.55-1.02 [facility] Comment on above: Performed By: #### T SH, FT3 #### [facility] [address] [place] [address] Dr. Sami William EGFR-AF NIGERIEN 54 mL/min/1.73m2 Critically low >=60 [facility] Comment on above: Performed By: #### T SH, FT3 #### [facility] [address] [place] [address] Dr. Sami William EGFR-NON AF NIGERIEN 45 mL/min/1.73m2 Critically low >=60 [facility] Comment on above: Performed By: #### T SH, FT3 #### [facility] [address] [place] [address] Dr. Sami William Globulin (S) [Mass/Vol] 3.8 g/dL Normal [facility] Comment on above: Performed By: #### T SH, FT3 #### [facility] [address] [place] [address] Dr. Sami William Glucose [Mass/Vol] 113 mg/dL Critically high 74-106 [facility] Comment on above: Performed By: #### T SH, FT3 #### [facility] [address] [place] [address] Dr. Sami William Potassium [Moles/Vol] 4.0 mmol/L Normal 3.5-5.1 [facility] Comment on above: Performed By: #### T SH, FT3 #### [facility] [address] [place] [address] Dr. Sami William Protein [Mass/Vol] 7.5 g/dL Normal 6.4-8.2 [facility] Comment on above: Performed By: #### T SH, FT3 #### [facility] [address] [place] [address] Dr. Sami William Sodium [Moles/Vol] 142 mmol/L Normal 136-145 [facility] Comment on above: Performed By: #### T KINA, FT3 #### [facility] [address] [place] [address] Dr. Sami William Urea nitrogen [Mass/Vol] 28.0 mg/dL Critically high 7.0-18.0 [facility] Comment on above: Performed By: #### T SH, FT3 #### [facility] [address] [place] [address] Dr. Sami William Urea nitrogen/Creatinine [Mass ratio] 23.7 mg/mg Normal [facility] Comment on above: Performed By: #### T SH, FT3 #### [facility] [address] [place] [address] Dr. Sami William TSHon 08-29-2022 TSH 6.046 uIU/mL Critically high 0.358-3.740 [facility] Comment on above: Performed By: #### T SH, FT3 #### [facility] [address] [place] [address] Dr. Sami William VITAMIN D 25 OHon 08-29-2022 VIT D 25-OH 118.0 ng/mL Normal [facility] Comment on above: Performed By: #### V ITAD, FT4 #### [facility] [address] [place] [address] Dr. Sami William VIT D RANGES SEE BELOW Normal [facility] Comment on above: Result Comment: <20 ng/mL Vit D deficient 20 - <30 ng/mL Vit D insufficient 30 - 100 ng/mL Vit D sufficient >100 ng/mL Potential Toxicity Performed By: #### V ITLILIAN, FT4 #### [facility] [address] [place] [address] Dr. Sami William FREE T3on 06-17-2022 FREE T3 3.44 pg/mlL Normal 2.18-3.98 [facility] Comment on above: Performed By: #### T KINA, FT3 #### [facility] [address] [place] [address] Dr. Sami William REVERSE T3on 05-22-2022 Reverse T3, Serum 18.8 ng/dL Normal 9.2-24.1 [facility] Comment on above: Result Comment: This test was developed and its performance characteristics determined by [facility]. It has not been cleared or approved by the Food and Drug Administration. Performed By: #### C BC #### [facility] [address] [place] [address] Dr. Sami William T3, TOTAL (TRIIODOTHYRONINE) on 05-17-2022 T3, TOTAL 163 ng/dL Normal 71-180 [facility] Comment on above: Performed By: #### T 3TOTAL #### [facility] [address] [place] [address] Dr. Sami William FREE T3on 05-16-2022 FREE T3 2.81 pg/mlL Normal 2.18-3.98 [facility] Comment on above: Performed By: #### T SH, FT3 #### [facility] [address] [place] [address] Dr. Sami William FREE T4on 05-16-2022 Free T4 [Mass/Vol] 1.05 ng/dL Normal 0.76-1.46 [facility] Comment on above: Performed By: #### C BC #### [facility] [address] [address] [address] Sami William TSHon 05-16-2022 TSH 3.431 uIU/mL Normal 0.358-3.[address] [facility] Comment on above: Performed By: #### T SH, FT3 #### [facility] [address] [place] [address] Dr. Sami William Ambulatory Visit Summaryon 0 02-27-2022 Ambulatory Visit Summary PATRICIA BLAKE :1950 Visit Date:02/27/2022 Ambulatory Visit Instructions Your Diagnosis OAB (overactive bladder) Tests Performed Urnls Dip Stick Auto w/o Microscopy POC 26026 Your Care Team Attending Physician - LILIAM [...] Urnls Dip Stick Auto w/o Microscopy POC 95481 (02/27/2022) Bilirubin Urine Dipstick - Negative Blood Urine Dipstick - Negative Glucose Urine Dipstick - Negative Ketones Urine Dipstick - Negative Leukocytes Urine Dipstick - Trace Nitrite Urine Dipstick - Negative Protein Urine Dipstick - Negative Specific [place] Urine Dipstick - 1.015 Urine Appearance Urine [...] incontinence Urge incontinence Urinary urgency [facility] Patient Educationon 02-28-20 Patient Education Obstetrics and [...] ove (more content not included)... Normal [facility] Urology Office/Clinic Noteon 02-27-2022 Urology Office/Clinic Note [...] Ruiz, URL [address] [place] [address] Additional Instructions: Patient Education Overactive Bladder, Adult [...] 0.4 mg= 1 tab(s), SubLingual, q5min, PRN [facility] Vitamin C, Daily Allergies lisinopril [...] Protein Urine Dipstick: Negative (02/27/22 13:16:00) Specific [place] Urine Dipstick: 1.015 (02/27/22 13:16:00) Urine Appearance Urine Dipstick: Clear (02/27/22 13:16:00) Urine Color Urine Dipstick: Yellow (02/27/22 13:16:00) Urobilinogen Urine Dipstick: Normal 0.2-1 EU/dl (02/27/22 13:16:00) pH Urine Dipstick: 5.5 (02/27/22 13:16:00) Diagnostic Results Tests Reviewed: Reviewed UA. Normal [facility] Comment on above: Result Comment: Elec tronically Signed By: LILIAM LEW PA-C\.br\Date and Time Signed: 02/27/22 13:51 EDT\.br\Electronically Co-Signed By: Rose Amin\.br\Date and Time Co-Signed: 02/27/22 13:44 EDT CARDIAC [place] [address] CARDIAC CATHETERIZATION PATIENT NAME: PATRICIA BLAKE : 1950 MED REC NO: [id number] ROOM: ACCOUNT NO: [id number] ADMIT DATE: 02/12/2022 PROVIDER: Niru Carter DATE [...] with 100 joules. NIRU CARTER [id number] Doc#: [id number] CC: Normal [facility] Free T3on 11-06-2021 FT3 4.02 pg/mL Normal 2.00-4.40 [facility] Comment on above: Performed By: #### F T3, FT4, TSH #### [facility] [address] [place], [place] [id number] Free T4on 11-06-2021 Free T4 [Mass/Vol] 0.93 ng/dL Normal 0.80-1.80 [facility] Comment on above: Performed By: #### F T3, FT4, TSH #### [facility] [address] [place], [place] [id number] Q - T3 TOTALon 11-06-2021 T3, TOTAL 158 ng/dL Normal 76-181 [facility] Comment on above: Order Comment: [facility] performed at: [facility], [facility], [address] [place] [address], [address] [place] [address], [id number], Psychiatric Assistant: Jaylon Bagley MD [facility] Date/Time: [facility] Results Received Date/Time: [facility] Reported Date/Time: Performed By: #### 8 59X, [id number] #### [facility] Default [address] [place] [address] Q - T3,REVERSE,LC/MS/MSon T3 REVERSE, LC/MS/MS 15 ng/dL Normal 8-25 [facility] Comment on above: Order Comment: [facility] performed at: [facility], [address], [place], [place], , Psychiatric Assistant: Gian Collins M.D.,PhD [facility] Date/Time: [facility] Results Received Date/Time: [facility] Reported Date/Time: Result Comment: This test was developed and its analytical performance characteristics have been determined by [facility] [place], [place]. It has not been cleared or approved by the U.S. Food and Drug Administration. This assay has been validated pursuant to the CLIA regulations and is used for clinical purposes. Performed By: #### 8 59X, [id number] #### [facility] [address] [place] [address] TSHon 11-06-2021 TSH 3.920 uIU/mL Normal 0.400-4.500 [facility] Comment on above: Performed By: #### F T3, FT4, TSH #### [facility] [address] [place], [place] [id number] Ambulatory Visit Summaryon 0 10-08-2021 Ambulatory Visit Summary PATRIICA BLAKE :1950 Visit Date:10/08/2021 Ambulatory Visit Instructions Your Diagnosis OAB (overactive bladder) Tests Performed Urnls Dip Stick Auto w/o Microscopy POC 25695 Your Care Team Attending Physician - TIN [...] GASCA, Niru Sanchez Where: [facility] Urology Office/Clinic Noteon 10-08-2021 Urology Office/Clinic Note [...] [place] In 4 months 02/05/[address] [place] [address]- Additional Instructions: w/ UA Patient Education COVID-19 [...] Protein Urine Dipstick: Negative (10/08/21 10:19:00) Specific [place] Urine Dipstick: 1. (more content not included)... Normal [facility] Comment on above: Result Comment: Elec tronically Signed By: Niru CASTLE MD\.br\Date and Time Signed: 10/08/21 10:57 EST\.br\Electronically Co-Signed By: Radha Wilson\.br\Date and Time Co-Signed: 10/08/21 10:55 EST CBC Auto DifferentialOrdered By: Pacheco Carter on 07-12-2021 [facility] # 0.10 [facility] Work Phone: Absolute Immature Granulocyte NOT REPORTED [employer] Phone: Absolute Lymph # 1.70 [employer] [facility] Work Phone: Absolute [place] # 0.40 [facility] Work Phone: Basophils (Bld) [#/Vol] 0.00 10*3/uL [facility] Work Phone: Basophils/100 WBC (Bld) 1 % 0 - 2 % [employer] Work Phone: Differential Type YES [employer] Work Phone: Eosinophils/100 WBC (Bld) 2 % 0 - 5 % [employer] Phone: Hematocrit (Bld) [Volume fraction] 35.0 % Low 36 - 46 % [employer] Phone: Hemoglobin.gastrointest inal spec 1 Ql (Stl) 11.4 g/dL Low 12.0 - 16.0 g/dL [facility] Work Phone: Immature Granulocytes NOT REPORTED 0 % [employer] Work Phone: Interpretation and review of laboratory results Abnormal [employer] Phone: Lymphocytes/100 WBC (Bld) 25 % 15 - 40 % [employer] Phone: MCH (RBC) [Entitic mass] 26.4 pg 26 - 34 pg [employer] Work Phone: MCHC (RBC) [Mass/Vol] 32.6 g/dL 31 - 37 g/dL [employer] Work Phone: MCV (RBC) [Entitic vol] 80.9 fL 80 - 100 fL [employer] Phone: Monocytes/100 WBC (Bld) 7 % 4 - 8 % [employer] Work Phone: NRBC Automated NOT REPORTED per 100 WBC [employer] Work Phone: Platelet distribution width (Bld) [Ratio] 17.2 % High 12.1 - 15.2 % [employer] Work Phone: Platelet Estimate NOT REPORTED [employer] Phone: Platelet mean volume (Bld) [Entitic vol] NOT REPORTED 6.0 - 12.0 fL [employer] Work Phone: Platelets (Bld) [#/Vol] 187 10*3/uL [employer] Work Phone: RBC (Bld) [#/Vol] 4.33 10*6/uL 4.0 - 5.2 m/uL [employer] Phone: RBC (Bld) [#/Vol] NOT REPORTED [employer] Phone: Segmented neutrophils/100 WBC (Bld) 65 % 47 - 75 % [employer] Work Phone: Segs Absolute 4.50 [employer] Work Phone: WBC (Bld) [#/Vol] 6.8 10*3/uL [employer] Work Phone: WBC (Bld) [#/Vol] NOT REPORTED [employer] Phone: [employer] Phone: Comprehensive Metabolic Pane lOrdered By: Pacheco Carter on 07-12-2021 Albumin [Mass/Vol] 4.6 g/dL 3.5 - 5.2 g/dL [employer] Phone: Albumin/Globulin Ratio NOT REPORTED [employer] Phone: ALP (Bld) [Catalytic activity/Vol] 78 U/L 35 - 104 U/L [employer] Work Phone: ALT [Catalytic activity/Vol] 25 U/L 5 - 33 U/L [employer] Work Phone: Anion gap [Moles/Vol] 12 mmol/L 9 - 17 mmol/L [employer] Phone: AST [Catalytic activity/Vol] 28 U/L <32 [employer] Phone: Bilirubin [Mass/Vol] 0.17 mg/dL Low 0.30 - 1.20 mg/dL [employer] Phone: Calcium [Mass/Vol] 10.4 mg/dL 8.6 - 10. 4 mg/dL [employer] Phone: Chloride [Moles/Vol] 103 mmol/L 98 - 10 7 mmol/L [employer] Phone: CO2 [Moles/Vol] 26 mmol/L 20 - 31 mmol/L [employer] Phone: Creatinine [Mass/Vol] 0.89 mg/dL 0.50 - 0.90 mg/dL [employer] Phone: Free PSA/Total PSA [Mass fraction] 7.5 g/dL 6.4 - 8.3 g/dL [employer] Phone: GFR >60 >60 mL/min [employer] Phone: GFR Non- >60 >60 mL/min [employer] Phone: GFR/1.73 sq M.predicted MDRD (S/P/Bld) [Vol rate/Area] [employer] Phone: Comment on above: Average GFR for 70 o r more years old: 75 mL/min/1.73sq m Chronic Kidney Disease: <60 mL/min/1.73sq m Kidney failure: <15 mL/min/1.73sq m eGFR calculated using average adult body mass. Additional eGFR calculator available at: http://www.[employer]/multiple_crcl_2012.htm GFR/1.73 sq M.predicted MDRD (S/P/Bld) [Vol rate/Area] NOT REPORTED [employer] Phone: Glucose [Mass/Vol] 109 mg/dL High 70 - 99 mg/dL [employer] Phone: Interpretation and review of laboratory results Abnormal [employer] Phone: Potassium [Moles/Vol] 4.3 mmol/L 3.7 - 5.3 mmol/L [employer] Phone: Sodium [Moles/Vol] 141 mmol/L 135 - 144 mmol/L [employer] Phone: Urea nitrogen (BldV) [Mass/Vol] 21 mg/dL 8 - 23 mg/dL [employer] Phone: Urea nitrogen/Creatinine (Bld) [Mass ratio] 24 High [employer] Phone: No Panel InformationOrdered By: Pacheco Carter on 07-12-2021 [employer] Phone: TSH with ReflexOrdered By: Lucia Carter on 07-12-2021 TSH Qn 4.58 m[IU]/L [employer] Phone: EKG 12 LeadOrdered By: Pacheco Carter on 06-11-2021 Atrial Rate 101 BPM [employer] Phone: Q-T Interval 348 ms [employer] Phone: QRS Duration 88 ms [employer] Phone: QTc Calculation (Bazett) 475 ms [employer] Phone: R [place] 76 degrees [employer] Phone: T [place] 67 degrees [employer] Phone: Ventricular Rate 112 BPM [employer] Phone: Atrial fibrillation with rapid ventricular response Abnormal ECG When compared with ECG of 17-MAY-2019 09:24, Atrial fibrillation has replaced Sinus rhythm Vent. rate has increased BY 45 BPM [employer] Phone: Dario, pn Incoming Ekg Results From [facility] - 06/11/2021 4:17 PM EDT Atrial fibrillation with rapid ventricular response Abnormal ECG When compared with ECG of 17-MAY-2019 09:24, Atrial fibrillation has replaced Sinus rhythm Vent. rate has increased BY 45 BPM [employer] Phone: [employer] Phone: Atrial Rate 73 BPM [employer] Phone: P [place] 74 degrees [employer] Phone: P-R Interval 164 ms [employer] Phone: Q-T Interval 384 ms [employer] Phone: QRS Duration 88 ms [employer] Phone: QTc Calculation (Bazett) 423 ms [employer] Phone: R [place] 73 degrees [employer] Phone: T [place] 72 degrees [employer] Phone: Ventricular Rate 73 BPM [employer] Work Phone: Poor data quality, interpretation may be adversely affected Normal sinus rhythm Cannot rule out Anterior infarct , age undetermined Abnormal ECG When compared with ECG of 11-JUN-2021 10:00, (unconfirmed) Sinus rhythm has replaced Atrial fibrillation Vent. rate has decreased BY 39 BPM [employer] Phone: Dario, pn Incoming Ekg Results From [facility] - 06/11/2021 4:17 PM EDT Poor data quality, interpretation may be adversely affected Normal sinus rhythm Cannot rule out Anterior infarct , age undetermined Abnormal ECG When compared with ECG of 11-JUN-2021 10:00, (unconfirmed) Sinus rhythm has replaced Atrial fibrillation Vent. rate has decreased BY 39 BPM [employer] Phone: [employer] Phone: Ambulatory Clinical Summaryo n 03-26-2021 Ambulatory Clinical Summary {[id number] [facility] Patient Educationon 03-26-20 21 Patient Education Nutrition [...] You could (more content not included)... Normal [facility] Coding Summary.on 03-01-2021 Coding Summary. [id number]+PGhlYWQ+PE1 HBKNiB55hcFZyyY7JS5 iLAK9ERHCTTDQDDR0US E5gyOO0AVfzC2BxdqDr CyntqQClEC93JPs4DXA 8lRwxBVjckW7edWNjM6 e6GbRaGY12hY70QLhuD KNzUvM5WtSfbodfoOZk M1vvJdQdpOEsOeo+PHR hYmxlIHdpZHRoPScxMD JfZsKurNcuRW9nSv1eU GVyLWNvbGxhcHNlOiBj g2fkNUOrGEszKL7qjOp aC2QrwFJ9IMEaz8i1Vx 48dHI+MJWyBRU2yEklT Beww504YeOhn7goHWL2 gXNyWQeyFVY1D45ec4F 5SVEqZFRlCGA3wVA9wL 4umLfggojoX6IngXDsR kG9MLN1qYUraW1okSgf isbdmE3bIkd+Z55DQY0 LVDIMOY5WMgn6L3BbRy wvdHI+QU45PEGqPP70w GBvyNQrz6mnnFb6RnLr PWPhRNF9nWgyFUisp6S bWGFfN07yqPGuo4H1YP AopZxabMLhWbSlbBV4j L2vXVnyjhars9innxfm Yvufc9asxn85xW00C48 gFSuuHZBqSBD7TLOwDM QkyDhwqe6bhS2mXi6+I Rxga6zrv9almEw9JnLl JVVcmaXgrVgmDGW7b8I fAw45L3QspCimb4SaBu x9ov16wHMqd8G9tJT8X GdfNZBcqR3gNYznWaM3 ZVWnRjMcjD23qPFvQTg yVr3lmIofeEceGC0fYB HgrvntFMVtaE6eLLOpq EWiaZzmFY5zJMSkmura g082YpVmFYU6MGJoqEX iY0PgwW6eQhGeFJHnIG TfQ2VhsKKhKHnwY567Y UnyAvC2EGKqvfLaC2Zs CAJaqCwgKcT4p1R0On0 Xy1BkeglkHBY6JXgiOO X6JeX7YrUnIkU9D4PoV hh6TKKvqCqiFI7pI9Rk GRJwvzshunkutWN8RUP kTTExiC07dIWaZBavBk 4tm9R0c594PPSgHKDjx U72Xa1xzJpiDGEvgYXJ lY4xfeuyf1snxoiyJhT qAIRhYZc7YZd9QIFpuV ecRxXhZKJ7ToO2SYX4u AGqcX2vqRglrrmgpD4s Oyc+Z10fyJ8tTUS2ISO 6arumVBBhoiOpBG49JD 95E0KeJhkteCAmgJD+P EDysvHmtRoyKE5gRoCz d3qhg6OdRAmwO0QmIZD xCFniQqi2XHHvXHL7hY K3kC9lSJLhNIqzx0Y8r JB2W8MfttAzdf2sm2qi XDWnCWskZ08mwXYsb6B 0OGOauQC1NJEzzFtwTm KgtS98Cku+PGNvbGdyb 1CyVtawj6loc9oknJf1 IjMwJSIgdmFsaWduPSJ 3c9UpYu50M34cQJziRG RoPSIxNSUiIHZhbGlnb d6hiK0dPe7+PGNvbCB3 iGT2dB5uVUZqPmV0XJi lG870EbCczYWcHetjm4 jsi3kkwGy4EjCvXEKas gVjcBybKNJ3n9TjCa41 A64gPVlmKTUiQUXyEKE dKYQuhXolhv5fgO5nKd 8+FT2ls2maxk23mD21s HI+JPBtMSE5kJmtLUcp YCXabG9gDQfgPjZ5DDA xGkEwaJ91cIBbQCilFk 5ogJarnKmiOK1dIKDhy wfty505HdNcd9kvCGXd gSMrUSmpNMA5T89ve7L 9IXNbQGIeUVF9eBQ4sB 1hbGlnbjogbGVmdDsgd hLshVfsBLlrOFttH480 IHRvcDsnPlBhdGllbnQ eAfQhFNv4Z6TaMoc4PR QpzKbhSB2dnWFoCWxkE k6rnKrfqBljAZ0pQYIv puxtc659WoQkc3zsQQT soZHsDAmuPLF8F23wb0 R2CGHtKDHlBBU9sRB6y P4tjPcimgmcfHKhzBwo efBmmSqdNTgpKAmkC09 6IHRvcDsnPkJpcnRoIE EqeWJ9LB49NK79aHNkp 7H2mYP1U1BlTUJokmmc lgbpeLE0PNKnKGRfzI7 0Ei2plDrfJy9uSROmYJ L2ASGhkNZvX3VfsB3wA lTrECBrOEFdS7KokZNe FKodY301VCvbHiK5NCI ypqTsY0MnVVNqzRtuCf S6x8Y0Zc2QL7Y2MW32K Y68jODyl3F9qZE5I6Au WOGumxnbzxfqgNJ3DUY oDPTkxH45Vz6bdBatMi 1uWNQbWRY2QBJfwFKmI 8IsaO4fVpIbOGCaDPIc R7IcgWJhPJebX798TCd zBsC9QUTsjiJkO2WpPM NmcXchDsT9f4O4Bl0JE Fb2NZ37SW45tZVjk5X9 oVN5R7ThCYMjxsvhndz icDO4AVGrTYPtfM30Kp 5uhAquSx1tPTPuJON7F YJdrYFtT6GhjX3zOfDg BOGcWLXoM5LtfVCqFWo hC317FXreCkV6OTDmfw BoY4GcLGZxnRsaMaE5n 4D2Wc4RQRAjKB06APW4 yUR9CL34YO58G7WsVcs vdGFibGU+PHRhYmxlIH dpZHRoPScxMDAlJyBzd XtdLW2xRg8iZGYfQPMt zRjmdCUcRaUjq8ntBNO fJRjkYK3orRwkZ0ErcM H8DOIsc6d2Zx90L04jY 3JvdXA+IEApwGX6xRV2 dT7kPoLgCiP6BVksO22 3LzJodQMlCjunc1zwc8 isiLd3WvF2NWMxnmRut MjaAYI6q2ArIl73C73m IHdpZHRoPSIxNSUiIHZ anIyiwk6lbF6eYd2+PG CzxZW8dGH9wS8aLoJlW eA4MVkjP118VsAdkPPi Yavcz5lll6oefQb6CgJ iNAVxwmMinKflWEO1q0 KmVp31C6AetZijl9FmL dy1ej73nZIrl9D5zWD5 X0VkGGZvrstjoOMbwVr qKD6kQLYgqtmyRPLoeZ 6yZCGaZ3z2LuRhWrP2H SyiC2QzebP3ICHpwXPl PXeeWNS7N44fs8X0TSX hPRKuNVH7yIN1aS2igA lnbjogbGVmdDsgdmVyd MuvBFmhPJkgW878HDBt hKvlFHQdpL8wXVGmmVY ahVglMN5oUELkqoatOy AYEXjeTaxZI5mFNPMtY DwvdGQ+KAMcVFJ1qYwh SCjeZLHibI5gOCIkY3n 8PhDeItN8KLdcX2IcKE CoqdvzLh46zW4eGbTvJ pP4SMuyR5BfbuG8JMRw qLVuDOhxXEV2S51jp7M 9HMUaGTBfNMA2aUC5aW 1hbGlnbjogbGVmdDsgd eEjeWilMDgxZBstK076 BCZwsPpdPyF9PbT2ZtH 6DLg0X0OvOqs8KNMzpR kvLD1rhCIiYKasLe2bi GowgZznWI4wGFGnmqld IPMbrP1iDMGdpMMkcMb cND9oAIHwlwlye030Zl EcLTJ2BGZbsPIeE4Zlp K5zQbKySVViYFMgJ4Tb fEMpYXtoD787BZhaMtJ 5SPNytlPoO8CoGEQnvC krUhE7k3Y8Lc58ITYUK WFyczwvdGQ+PHRkIHN0 zAgcJWgkPDGivY0kRBW xF8z5CrVtLqR5DJqaN5 NvYWJapjbbYt76oW1vF yXiDjL0RRbcU7MpaoJ7 JQFdiQLqALaoOQF6J86 lo8G1FJUkSEQmIPU3yZ G8rK3gdJllggzjuHAwz DsgdmVydGljYWwtYWxp Q387DZLuaJkmXcNkvHC sZTwvdGQ+HOVnQAW3xS fsCRxgIZDvuN2iOQCnR 0a9LgIuWpL0YGukO0Uv HUWvismlVv44pK0lSxB qCgF6RKjeA3DpnzV6LA QxxVMdUUkyIWW6H99gm 4J7VBYmOMZzPIZ7xEG8 fJ6ozJqwruhywHYwdLw gdmVydGljYWwtYWxpZ2 47WSOdjKoySx60sCXmw WkaasG9I9YzVxdbiJZ+ TZ27GETgHB95jYQkkGO nd3tpjOe6YtEkLHErFS S1pHdpDFgay7JnGOCsS 11tcCQbz3G1ZHZymYqd iTUgEyYgxZF4eD8aDHd ewcbbw4nshcmnJrjqz2 tmff83kF69J27gFKbxW HRoPSIzMCUiIHZhbGln iu9dtD7rYl0+PGNvbCB 5pHZ6mA1wXzHaCnU9IU vbR492JmOicWBeVgioe 0syh3rteXg4FzFkLKAa soEpwGsmFMZ7i0EzWq6 5O08fGKhtEPCcPJEbHN BxRUQoxWmdwj6wtM0uZ i8+CX7lx5qups92iB16 dHI+SFFcWKM9mMfwUHh bIWHttW5eNScxUuU2MS SwHiMvkW03xGPgSZcbA f3zmJyzlRgmZS2xSWMy ejcej751KiIhw7gcNSM aaXCwRCmcJHS2P29co1 A9HGXxFHUtREL1iHN1r V2woRhuzwzlbRGbtLsu rxIgqZsbJVhuYUfeM91 3ENExpDnsUbJgpMVgP6 wnsuOTQX8sKauwmRI+P TRaGXA0eJzeBVscVUBe iR7pWAHrU8t7GfTyIaT 7EHnvZ7XosqG5BATzeB CwVDCvmEXQlT0trobyp 3yvlvhqKyPvBMTzYAv0 HLd2ACBbgKsnLuGyRII 8MeQ7XFQ1gTAkkX7xiR nkntzfvB2kSrv+RklOO jwvdGQ+ZFDtEED7uJoa SYitILMndG2fDWCfP8z 6UrUpJuP3SMmeX5Wugo L2DFMrqJEvBYRndLOYc L1kbcxxz9yvkgeeGjXh LPNhMYi6LEz9IIAvrPa cSfObRHL8EpK0FRV9pQ DxnF7qtEmkorfgwM9bX yc+TVJOOjwvdGQ+PHRk DUJ9uNwtZNbqRTUicR4 cRCVdV8c6YdCoIvT8EC fyI1KutfL9TYJakNXpY BRdcBMBjK0fotugp7ka hvzsKrMjQELnBKe8MPc 3JDWsuPuwTwQpUYU4Ek P9MSZ9mLEamO3ptWjlf zbvbY4vEda+YNF5CXD2 HW66OJ33F5WrFoapdOY ibGU+PHRhYmxlIHdpZH RoPScxMDAlJyBzdHlsZ X2dVf5bEFOjLPLomQws cHNl (more content not included)... Normal [facility] POC Glucoseon 05-19-2019 Glucose [Mass/Vol] 132 mg/dL High 65 - 99 mg/dL [facility] Interpretation and review of laboratory results Abnormal [facility] CBC Auto Differentialon Basophils (Bld) [#/Vol] 0.00 10*3/uL [place], [place] Basophils/100 WBC (Bld) 0 % 0 - 2 % [place], [place] Differential Type YES [facility] [place] Eosinophils (Bld) [#/Vol] 0.10 10*3/uL [place] Eosinophils/100 WBC (Bld) 2 % 0 - 5 % [place] Erythrocyte distribution width (RBC) [Ratio] 16.0 % High 12.1 - 15.2 % [place] Hematocrit (Bld) [Volume fraction] 33.4 % Low 36 - 46 % [place] Hemoglobin (Bld) [Mass/Vol] 10.8 g/dL Low 12 - 16 g/dL [place] Interpretation and review of laboratory results Abnormal [place] Lymphocytes (Bld) [#/Vol] 1.90 10*3/uL [place] Lymphocytes/100 WBC (Bld) 26 % 15 - 40 % [place] MCH (RBC) [Entitic mass] 26.6 pg 26 - 34 pg [place] MCHC (RBC) [Mass/Vol] 32.4 g/dL 31 - 37 g/dL [place] MCV (RBC) [Entitic vol] 82.2 fL 80 - 100 fL [place] Monocytes (Bld) [#/Vol] 0.50 10*3/uL [place] Monocytes/100 WBC (Bld) 8 % 4 - 8 % [place] Platelet mean volume (Bld) [Entitic vol] NOT REPORTED 6 - 12 fL [place], [place] Platelets (Bld) [#/Vol] 209 10*3/uL [place] Platelets (Bld) [#/Vol] NOT REPORTED [place] RBC (Bld) [#/Vol] 4.07 10*6/uL 4 - 5.2 m/uL [place], [place] RBC morphology finding Nom (Bld) NOT REPORTED [place] Segmented neutrophils/100 WBC (Bld) 64 % 47 - 75 % [place] Segs Absolute 4.60 [place] WBC (Bld) [#/Vol] NOT REPORTED per 100 WBC [place] WBC (Bld) [#/Vol] 7.2 10*3/uL [place] WBC Morphology NOT REPORTED [place], [place] Comprehensive Metabolic Pane ruiz 05-17-2019 Albumin [Mass/Vol] 4.5 g/dL 3.5 - 5.2 g/dL [place] Albumin/Globulin [Mass ratio] NOT REPORTED [place] ALP [Catalytic activity/Vol] 76 U/L 35 - 104 U/L [place] ALT [Catalytic activity/Vol] 16 U/L 5 - 33 U/L [place] Anion gap [Moles/Vol] 12 mmol/L 9 - 17 mmol/L [place] AST [Catalytic activity/Vol] 20 U/L <32 [place] Bilirubin Ql (U) 0.27 mg/dL Low 0.3 - 1.2 mg/dL [place] Bun/Cre Ratio 37 High [place] Calcium [Mass/Vol] 10.8 mg/dL High 8.6 - 10. 4 mg/dL [place] Chloride [Moles/Vol] 104 mmol/L 98 - 10 7 mmol/L [place] CO2 [Moles/Vol] 26 mmol/L 20 - 31 mmol/L [place] Creatinine [Mass/Vol] 0.78 mg/dL 0.5 - 0.9 mg/dL [place] GFR >60 >60 mL/min [place] GFR Non- >60 >60 mL/min [place] GFR/1.73 sq M predicted among non-blacks MDRD (S/P/Bld) [Vol rate/Area] NOT REPORTED [place], [place] GFR/1.73 sq M predicted among non-blacks MDRD (S/P/Bld) [Vol rate/Area] [place], [place] Comment on above: Average GFR for 70 o r more years old: 75 mL/min/1.73sq m Chronic Kidney Disease: <60 mL/min/1.73sq m Kidney failure: <15 mL/min/1.73sq m eGFR calculated using average adult body mass. Additional eGFR calculator available at: http://www.[employer]/multiple_crcl_2012.htm Glucose [Mass/Vol] 124 mg/dL High 70 - 99 mg/dL [place] Potassium [Moles/Vol] 4.0 mmol/L 3.7 - 5.3 mmol/L [place] Protein [Mass/Vol] 8.2 g/dL 6.4 - 8.3 g/dL [place] Sodium [Moles/Vol] 142 mmol/L 135 - 144 mmol/L [place] Urea nitrogen [Mass/Vol] 29 mg/dL High 8 - 23 mg/dL [place] Lipid Panelon 05-17-2019 Cholesterol [Mass/Vol] 112 mg/dL <200 Me [place], [place] Comment on above: Cholesterol Guidelines: <200 Desirable 200-240 Borderline >240 Undesirable Cholesterol in HDL [Mass/Vol] 34 mg/dL Low >40 [place] Comment on above: HDL Guidelines: <40 Undesirable 40-59 Borderline >59 Desirable Cholesterol in LDL [Mass/Vol] 55 mg/dL 0 - 130 mg/dL [place] Comment on above: LDL Guidelines: <100 Desirable 100-129 Near to/above Desirable 130-159 Borderline >159 Undesirable Direct (measured) LDL and calculated LDL are not interchangeable tests. Cholesterol in VLDL [Mass/Vol] NOT REPORTED 1 - 30 mg/dL [place] Cholesterol.total/Salome sterol in HDL [Mass ratio] 3.3 {ratio} <5 [place] Triglyceride [Mass/Vol] 113 mg/dL <150 M [place] Comment on above: Triglyceride Guidelines: <150 Desirable 150-199 Borderline 200-499 High >499 Very high Based on AHA Guidelines for fasting triglyceride, June 2012. Otheron 05-17-2019 Interpretation and review of laboratory results Abnormal [place] Immature granulocytes (Bld) [#/Vol] NOT REPORTED [place] Patient Fasting?on 9 Patient Fasting? yes [place], [place] Vital Signs Date Time Vital Sign Value Performing Clinician Facility 10-26-2024 14:32-0500 Body height 151.8 cm Aashish Laguna MD Work Phone: [facility] 10-26-2024 14:32-0500 Body mass index (BMI) [Ratio] 40.96 kg/m2 Aashish Laguna MD Work Phone: [facility] 10-26-2024 14:32-0500 Body weight 94.35 kg Aashish Laguna MD Work Phone: [facility] 08-23-2024 13:34-0500 Body height 148.6 cm Angel Russ DO Work Phone: [facility] 08-23-2024 13:34-0500 Body mass index (BMI) [Ratio] 42.73 kg/m2 Angel Russ DO Work Phone: [facility] 08-23-2024 13:34-0500 Body weight 94.35 kg Anegl Russ DO Work Phone: [facility] 08-23-2024 13:34-0500 Diastolic blood pressure 78 mm[Hg] Angel Russ DO Work Phone: [facility] 08-23-2024 13:34-0500 Systolic blood pressure 134 mm[Hg] Angel Russ DO Work Phone: [facility] 07-21-2024 14:25-0500 Body height 151.8 cm Aashish Laguna MD Work Phone: [facility] 07-21-2024 14:25-0500 Body mass index (BMI) [Ratio] 43.13 kg/m2 Aashish Laguna MD Work Phone: [facility] 07-21-2024 14:25-0500 Body weight 99.34 kg Aashish Laguna MD Work Phone: [facility] 07-21-2024 14:25-0500 Diastolic blood pressure 78 mm[Hg] Aashish Laguna MD Work Phone: [facility] 07-21-2024 14:25-0500 Heart rate 82 /min Aashish Laguna MD Work Phone: [facility] 07-21-2024 14:25-0500 SaO2% (BldA) [Mass fraction] 98 % Aashish Laguna MD Work Phone: [facility] 07-21-2024 14:25-0500 Systolic blood pressure 126 mm[Hg] Aashish Laguna MD Work Phone: [facility] 05-12-2024 14:21-0400 Body height 151.8 cm Aashish Laguna MD Work Phone: [facility] 05-12-2024 14:21-0400 Body mass index (BMI) [Ratio] 43.13 kg/m2 Aashish Laguna MD Work Phone: [facility] 05-12-2024 14:21-0400 Body weight 99.34 kg Aashish Laguna MD Work Phone: [facility] 05-04-2024 14:29-0400 Body height 151.8 cm Aashish Laguna MD Work Phone: [facility] 05-04-2024 14:29-0400 Body mass index (BMI) [Ratio] 43.13 kg/m2 Aashish Laguna MD Work Phone: [facility] 05-04-2024 14:29-0400 Body weight 99.34 kg Aashish Laguna MD Work Phone: [facility] 10-15-2023 13:56-0500 Body height 151.8 cm Aashish Laguna MD Work Phone: [facility] 10-15-2023 13:56-0500 Body mass index (BMI) [Ratio] 41.75 kg/m2 Aashish Laguna MD Work Phone: [facility] 10-15-2023 13:56-0500 Body weight 96.16 kg Aashish Laguna MD Work Phone: [facility] 09-17-2022 10:22-0500 Diastolic blood pressure 77 mm[Hg] [facility] [employer] 09-17-2022 10:22-0500 Heart rate 102 /min Mw Rm [employer] 09-17-2022 10:22-0500 Systolic blood pressure 130 mm[Hg] [facility] [employer] [facility] 02-27-2022 13:23-0400 Blood Pressure Location LILIAM LEW [facility] 02-27-2022 13:23-0400 Diastolic blood pressure 64 mm[Hg] LILIAM LEW [facility] 02-27-2022 13:23-0400 Heart rate 72 /min LILIAM LEW [facility] 02-27-2022 13:23-0400 Systolic blood pressure 137 mm[Hg] LILIAM LEW [facility] 02-12-2022 11:14-0400 Diastolic blood pressure 89 mm[Hg] [facility] [employer] [facility] 02-12-2022 11:14-0400 Heart rate 67 /min [facility] 02-12-2022 11:14-0400 Respiratory rate 18 /min Mw R[facility] 02-12-2022 11:14-0400 SaO2% (BldA) [Mass fraction] 98 % [facility]w [facility] 02-12-2022 11:14-0400 Systolic blood pressure 129 mm[Hg] [facility] 06-11-2021 11:42-0400 Diastolic blood pressure 76 mm[Hg] Mw [facility] Work Phone: 06-11-2021 11:42-0400 Heart rate 83 /min Mw [facility] Work Phone: 06-11-2021 11:42-0400 Respiratory rate 21 /min Mw [facility] Work Phone: 06-11-2021 11:42-0400 SaO2% (BldA) [Mass fraction] 96 % [facility] Work Phone: 06-11-2021 11:42-0400 Systolic blood pressure 123 mm[Hg] Mw [facility] Work Phone: 05-19-2019 10:52-0400 BP Diastolic 55 mm[Hg] Niru Carter [facility] 05-19-2019 10:52-0400 BP Systolic 122 mm[Hg] Niru Carter [facility] 05-19-2019 10:52-0400 Pulse (Heart Rate) 60 /min Niru Carter [facility] 05-19-2019 10:52-0400 Pulse Oximetry 92 % Niru Carter [facility] 05-19-2019 06:25-0400 BMI (Body Mass Index) 43.61 kg/m2 [facility] 05-[facility]-2019 06:25-0400 Body weight 104.69 kg Niru Carter [facility] 05-19-2019 06:25-0400 Height 154.9 cm [facility] 05-19-2019 06:25-0400 Respiratory Rate 16 /min Niru Carter [facility] 05-19-2019 06:25-0400 Body Temperature 97.9 [degF] [facility] En[facility] Encounter Date Encounter Type Care Provider Facility Start: 11-25-2024 End: 11-25-2024 Patient encounter procedure Aashish Laguna MD Work Phone: [facility] Work Phone: Start: 11-25-2024 End: 11-25-2024 ambulatory Aashish Laguna MD Work Phone: 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 (CMS/HCC); Pulmonary hypertension [...] LAGUNA Not Available Start: 10-15-2023 Chart abstracting Aashish dye MD Work Phone: [facility] Start: 10-15-2023 End: 10-15-2023 Office outpatient visit 25 minutes Aashish Laguna MD Work Phone: [facility] Comment on above: 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 Work Phone: Start: 10-02-2023 End: 10-02-2023 Patient encounter procedure MD Aashish Laguna Work Phone: [facility] Work Phone: Start: 12-11-[address] AASHISH LAGUNA . Fac ility:[facility]1 Start: 11-29-2022 End: 11-29-2022 ambulatory MD Aashish Laguna Work Phone: [facility] Work Phone: Start: 11-29-2022 End: 11-29-2022 Patient encounter procedure MD Aashish Laguna Work Phone: [facility] Work Phone: Start: 11-25-2022 End: 11-25-2022 ambulatory MD Aashish Laguna Work Phone: [facility] Work Phone: Start: 11-25-2022 End: 11-25-2022 Patient encounter procedure MD Aashish Laguna Work Phone: [facility] Work Phone: Start: 11-04-2022 End: 11-05-[address] AASHISH LAGUNA . Facility:[facility] Start: 10-22-[address] AASHISH LAGUNA . Fac ility:[facility] Start: 10-18-2022 End: 10-19-[address] AASHISH LAGUNA . Facility:[facility] Start: 10-15-2022 End: 10-15-[address] AASHISH LAGUNA . Facility:[facility] Start: 10-14-2022 End: 10-14-2022 ambulatory MD Aashish Laguna Work Phone: [facility] Work Phone: Start: 10-14-2022 End: 10-14-2022 Patient encounter procedure MD Aashish Laguna Work Phone: [facility] Work Phone: Start: 09-17-2022 End: 09-20-2022 [facility] Start: 09-17-2022 End: 09-19-2022 Subsequent [...] encounter procedure LILIAM LEW [facility] Start: 02-12-2022 End: 02-13-2022 ambulatory PACHECO Jenkins [...] 10-14-2020 Orders Only Nahomy Hernandez Work Phone: [facility] Start: 05-19-2019 End: 05-19-2019 Patient encounter procedure NIRU DARWIN [facility] Start: 05-19-2019 End: 05-19-2019 Subsequent hospital visit by physician Niru Carter Work Phone: [facility] Proced[facility] Care Unit Start: 05-17-2019 End: 05-17-2019 [...] Start: 05-17-2026 Glaucoma screening Diabetes: Retinopathy Screening [facility] Start: 09-30-2025 Screening for malignant neoplasm of colon [facility] Start: 08-24-2025 End: 08-24-2025 Patient encounter procedure 08/24/2025 1:45 PM EST Office Visit [facility] [address] [place] [address] Angel Russ, DO [address] [place] [address] [facility] Start: 05-16-2025 Glaucoma screening Diabetes: Retinopathy Screening [facility] Start: 04-20-2025 End: 04-20-2025 Patient encounter procedure 04/20/2025 2:00 PM EDT Office Visit [facility] [address] [facility] [place] [address] Aashish Laguna MD [address] [facility] [address] [place] [address] [facility] Start: 03-25-2025 End: 10-26-2025 T3, reverse T3, reverse Lab Routine Chronic fatigue ESS (euthyroid sick syndrome) Expected: 03/25/2025, Expires: 10/26/2025 [facility] Comment on above: Expected: 03/25/2025, Expires: Start: 03-25-2025 End: 10-26-2025 Thyrotropin [Units/volume] in Serum or Plasma TSH Lab Routine Acquired hypothyroidism (CMS/HCC) Chronic fatigue Expected: 03/25/2025, Expires: 10/26/2025 [facility] Comment on above: Expected: 03/25/2025, Expires: Start: 03-25-2025 End: 10-26-2025 Thyroxine (T4) free [Mass/volume] in Serum or Plasma T4, free Lab Routine Acquired hypothyroidism (CMS/HCC) Chronic fatigue Expected: 03/25/2025, Expires: 10/26/2025 [facility] Comment on above: Expected: 03/25/2025, Expires: Start: 03-25-2025 End: 10-26-2025 Triiodothyronine (T3) [Mass/volume] in Serum or Plasma T3 Lab Routine Chronic fatigue ESS (euthyroid sick syndrome) Expected: 03/25/2025, Expires: 10/26/2025 [facility] Work Phone: Comment on above: Expected: 03/25/2025, Expires: Start: 03-25-2025 End: 10-26-2025 Triiodothyronine (T3) Free [Mass/volume] in Serum or Plasma T3, free Lab Routine Chronic fatigue ESS (euthyroid sick syndrome) Expected: 03/25/2025, Expires: 10/26/2025 [facility] Comment on above: Expected: 03/25/2025, Expires: Start: 02-03-2025 Urine screening for protein Diabetes: Urine Protein Screening [facility] Start: 01-13-2025 End: 01-13-2025 Patient encounter procedure [facility] Start: 12-01-2024 Pneumococcal Vaccine: 65+ Years (2 of 2 - PCV) Pneumococcal Vaccine: 65+ Years (2 of 2 - PCV) [facility] Comment on above: Postponed from 04/01/2019 (Patient [...] hypertension; Microalbuminuric diabetic nephropathy (CMS/HCC); Hyperlipidemia, mixed ([facility]/HCC) Start: 11-04-2024 End: 05-04-2025 T3, reverse T3, reverse Lab Routine Chronic fatigue Expected: 11/04/2024 (Approximate), Expires: 05/04/2025 [facility] Comment on above: Expected: 11/04/2024 (Approximate), Expi res: 05/04/2025 Start: 11-04-2024 End: 05-04-2025 Thyrotropin [Units/volume] in Serum or Plasma TSH Lab Routine Chronic fatigue Expected: 11/04/2024 (Approximate), Expires: 05/04/2025 [facility] Comment on above: Expected: 11/04/2024 (Approximate), Expi res: 05/04/2025 Start: 11-04-2024 End: 05-04-2025 Thyroxine (T4) free [Mass/volume] in Serum or Plasma T4, free Lab Routine Chronic fatigue Expected: 11/04/2024 (Approximate), Expires: 05/04/2025 [facility] Comment on above: Expected: 11/04/2024 (Approximate), Expi res: 05/04/2025 Start: 11-04-2024 End: 05-04-2025 Triiodothyronine (T3) [Mass/volume] in Serum or Plasma T3 Lab Routine Chronic fatigue Expected: 11/04/2024 (Approximate), Expires: 05/04/2025 [facility] Work Phone: Comment on above: Expected: 11/04/2024 (Approximate), Expi res: 05/04/2025 Start: 11-04-2024 End: 05-04-2025 Triiodothyronine (T3) Free [Mass/volume] in Serum or Plasma T3, free Lab Routine Chronic fatigue Expected: 11/04/2024 (Approximate), Expires: 05/04/2025 [facility] Comment on above: Expected: 11/04/2024 (Approximate), Expi res: 05/04/2025 Start: 10-26-2024 End: 10-26-2024 Patient encounter procedure [facility] Start: 10-03-2024 End: 10-24-2025 DBT Breast - bilateral screening Bilateral screening mammogram with tomosynthesis Imaging Routine Breast cancer screening by mammogram Expected: 10/03/2024, Expires: 10/24/2025 [facility] Work Phone: Comment on above: Expected: 10/03/2024, Expires: Start: 10-02-2024 Screening for malignant neoplasm of breast Mammogram [facility] Start: 08-23-2024 End: 08-23-2024 Patient encounter procedure 08/23/2024 1:45 PM EST Office Visit [facility] [address] [place] [address] Angel Russ DO [address] [place] [address] [facility] Start: 08-06-2024 Hemoglobin A1c measurement Diabetes: Hemoglobin A1C [facility] Start: 07-21-2024 End: 07-21-2024 Patient encounter procedure 07/21/2024 2:30 PM EST Office Visit [facility] [address] [facility] [address] [place] [address] Aashish Laguna MD [address] [place] [address] (Fax) [facility] Start: 05-13-2024 End: 05-13-2024 Patient encounter procedure 05/13/2024 2:30 PM EDT Office Visit [facility] [address] [facility] [address] [place] [address] Aashish Laguna MD [address] [place] [address] (Fax) [facility] Start: 05-12-2024 End: 05-12-2024 Patient encounter procedure [facility] Comment on above: Recurrent major depressive disorder, in partial remission (HCC) ([facility]); Chronic post-traumatic stress disorder (PTSD) ([facility]); Mild cognitive impairment with memory loss; Morbid obesity ([facility]); BMI 40.0-44.9, adult ([facility]) Start: 05-09-2024 Influenza vaccination Influenza Vaccine (#1) [facility] Start: 05-06-2024 Hemoglobin A1c measurement Diabetes: Hemoglobin A1C [facility] Start: 05-04-2024 End: 05-04-2024 Patient encounter procedure [facility] Comment on above: ESS (euthyroid sick syndrome); Chronic fatigue syndrome; Morbid obesity ([facility]); BMI 40.0-44.9, adult ([facility]) Start: 02-05-2024 End: 02-05-2024 Patient encounter procedure 02/05/2024 2:00 PM EDT Office Visit [facility] [address] [facility] [place] [address] Aashish Laguna MD [address] [place] [address] (Fax) [facility] Start: 11-11-2023 End: 11-11-2023 Patient encounter procedure 11/11/2023 2:30 PM EST Office Visit [facility] [address] [facility] [place] [address] Aashish Laguna MD [address] [facility] [place] [address] (Fax) [facility] Start: 10-15-2023 End: 10-15-2023 Patient encounter procedure 10/15/2023 2:00 PM EST Office Visit [facility] [address] [facility] [place] [address] Aashish Laguna MD [address] [facility] [place] [address] (Fax) [facility] Start: 10-01-2023 Hemoglobin A1c measurement Diabetes: Hemoglobin A1C [facility] Start: 09-17-2023 Lipid panel Lipids [facility] Start: 09-05-2023 Urine screening for protein Diabetes: Urine Protein Screening [facility] Start: 07-17-2023 Medicare Annual Wellness (AWV) Medicare Annual Wellness (AWV) [facility] Start: 03-17-2023 End: 03-17-2023 Patient encounter procedure 03/17/2023 Office Visit Cardiology Pacheco Carter MD [address] [place] [address] [facility] Insurance Verification [employer] Start: 10-08-2022 Urine screening for protein Diabetic microalbuminuria test [facility] Start: 09-17-2022 End: 09-17-2022 Patient encounter procedure 09/17/2022 Office Visit Cardiology Pacheco Carter MD [address] [place] [address] [facility] Insurance Verification Clerk Start: 07-12-2022 GFR test (Diabetes, CKD 3-4, OR last GFR 15-59) GFR test (Diabetes, CKD 3-4, OR last GFR 15-59) [facility] Start: 05-09-2022 Influenza vaccination Flu vaccine (#1) [facility] Start: 04-08-2022 Influenza vaccination Flu vaccine (#1) [facility] Start: 03-18-2022 End: 03-18-2022 Patient encounter procedure 03/18/2022 Office Visit Cardiology Pacheco Carter MD [address] [place] [id number] [facility] Insurance Verification Clerk Start: 01-08-2022 End: 01-08-2022 Patient encounter procedure 01/08/2022 Office Visit Cardiology Pacheco Carter MD [address] [place] [address] [phone] [facility] Insurance Verification Clerk Start: 10-04-2021 Urine screening for protein [facility] Start: 08-05-2021 Screening for malignant neoplasm of colon Colonoscopy [facility] Start: 07-12-2021 End: 07-12-2021 Patient encounter procedure 07/12/2021 Office Visit Cardiology Pacheco Carter MD [address] [place] [id number] [facility] Insurance Verification Clerk Start: 05-09-2021 Influenza vaccination Flu vaccine (#1) [facility] Work Phone: Start: 05-17-2020 Lipid panel [facility] Start: 04-11-2020 End: 04-11-2020 Office Visit 04/11/2020 Office Visit Cardiology Pacheco Carter MD [address] [place] [id number] [facility] Insurance Verification Clerk Start: 03-26-2020 Screening for malignant neoplasm of colon [facility] Start: 05-19-2019 End: 05-19-2019 Nurse Only 05/19/2019 Nurse Only Cardiology [facility] Insurance Verification Clerk Start: 05-09-2019 Influenza vaccination Flu vaccine (#1) [place] Start: 04-01-2019 Pneumococcal 65+ years Vaccine (2 - PCV) Pneumococcal 65+ years Vaccine (2 - PCV) [facility] Start: 04-01-2019 Pneumococcal 65+ years Vaccine (2 of 2 - PCV13) Pneumococcal 65+ years Vaccine (2 of 2 - PCV13) [place] Start: 04-01-2019 Pneumococcal Vaccine: 65+ Years (2 - PCV) Pneumococcal Vaccine: 65+ Years (2 - PCV) [facility] Start: 02-28-2019 Annual Wellness Visit (AWV) Annual Wellness Visit (AWV) [facility] Start: 03-26-2018 Screening for malignant neoplasm of colon [facility] Start: 11-18-2017 Lipid screen Lipid screen [place] Start: 2014 DEXA (modify frequency per FRAX score) DEXA (modify frequency per FRAX score) [place] Start: 08-19-2013 Shingles Vaccine (2 of 3) Shingles Vaccine (2 of 3) [place], [place] Start: 2012 Annual Wellness Visit (AWV) Annual Wellness Visit (AWV) [place] Start: 09-11-2006 DTaP/Tdap/Td vaccine (1 - Tdap) DTaP/Tdap/Td vaccine (1 - Tdap) [facility] Start: 2004 Screening for osteoporosis DEXA (modify frequency per FRAX score) [facility] Start: 1999 Colon cancer screen colonoscopy Colon cancer screen colonoscopy [place] Start: 1994 Screening for malignant neoplasm of colon [facility] Start: 1989 Breast cancer screen Breast cancer screen [place] Start: 1989 Screening for malignant neoplasm of breast Breast cancer screen [facility] Start: 1967 Diabetic microalbuminuria test Diabetic microalbuminuria test [place] Start: 1967 Diabetic retinal exam [facility]abetic [facility] Start: 1967 Glaucoma screening Diabetic retinal exam [facility] [employer] Start: 1967 Hepatitis C screening Hepatitis C screen [facility] [employer] Start: 1961 Depression Screen Depression Screen [facility] [employer] Start: 1959 [object Object] Diabetic foot exam [place] Start: 1959 A1C test (Diabetic or Prediabetic) A1C test (Diabetic or Prediabetic) [place] Start: 1959 Diabetic foot examination Diabetic foot exam [facility] [employer] [facility] [employer] Start: 1959 Diabetic retinal exam Diabetic retinal exam [place], [place] Start: 1959 Hemoglobin A1c measurement A1C test (Diabetic or Prediabetic) [facility] [employer] Start: 1949 Annual Wellness Visit (AWV) Annual Wellness Visit (AWV) [facility] [employer] Start: 1949 Hepatitis C screen Hepatitis C screen [place] Start: 1949 Hepatitis C screening Hepatitis C screen [facility] [employer] Phone: Start: 1949 Screening for malignant neoplasm of colon [facility] Cardiac catheterization Cardiac Catheterization Cardiac Cath Routine 05/19/2019 8:40 AM EDT [facility] Hospital End: 02-12-2022 Cardioversion Defibrillation Cardioversion Defibrillation Cardiac Cath Routine Atrial fibrillation, new onset (HCC) 1 Occurrences starting 02/12/2022 until 02/12/2022 [employer] [facility] [employer] Work Phone: Comment on above: 1 Occurrences starting 02/12/2022 until 02/12/2022 EKG 12 Lead [facility] [employer], [place] EKG 12 Lead [employer] [facility] [place] Work Phone: EKG 12 Lead EKG 12 Lead ECG Routine Atrial fibrillation, new onset (HCC) 03/18/2022 9:40 AM EDT [facility] [employer] Work Phone: Immunizations Immunization Date Immunization Notes Care Provider Stephen carrasco 08-11-2024 ABRYSVO - Respirator y syncytial virus (RSV), vaccine, bivalent, protein subunit RSV prefusion F, diluent reconstituted, 0.5 mL, PF Aashish Laguna MD Work Phone: [facility] 08-11-2024 Pneumococcal Conjuga te PCV 20 Aashish Laguna MD Work Phone: [facility] 06-21-2024 SARS-COV-2 (COVID-19 ) vaccine, mRNA, spike protein, LNP, PF, 50 mcg/0.5 mL Aashish Laguna MD Work Phone: [facility] 06-21-2024 Seasonal trivalent influenza vaccine, adjuvanted, preservative free Aashish Laguna MD Work Phone: [facility] 08-14-2023 SARS-COV-2 (COVID-19 ) vaccine, mRNA, spike protein, LNP, PF, 50 mcg/0.5 mL Aashish Laguna MD Work Phone: [facility] 07-10-2023 Influenza, Seasonal, Quadrivalent, Adjuvanted Aashish Laguna MD Work Phone: [facility] 07-10-2023 influenza virus vacc ine, unspecified formulation Aashish Laguna MD Work Phone: [facility] 08-14-2022 influenza, injectabl e, quadrivalent, preservative free Aashish Laguna MD Work Phone: [facility] 06-13-2021 influenza, high dose seasonal, preservative-free Aashish Laguna MD Work Phone: [facility] 06-13-2021 Seasonal, trivalent, recombinant, injectable influenza vaccine, preservative free Aashish Laguna MD Work Phone: [facility] 11-15-2020 SARS-CoV-2 (COVID-19 ) [id number] vaccine LILIAM LEW [facility] Comment on above: Result Comment: 2 sh ot 10-12-2020 SARS-CoV-2 (COVID-19 ) [id number] vaccine LILIAM LEW [facility] Comment on above: Result Comment: 1st shot 07-06-2020 Seasonal trivalent influenza vaccine, adjuvanted, preservative free Aashish Laguna MD Work Phone: [facility] 06-21-2020 zoster vaccine recombinant Aashish Laguna MD Work Phone: [facility] 10-08-2019 zoster vaccine recombinant Aashish Laguna MD Work Phone: [facility] 07-05-2019 influenza, high dose seasonal, preservative-free Aashish Laguna MD Work Phone: [facility] 07-06-2018 influenza, high dose seasonal, preservative-free Aashish Laguna MD Work Phone: [facility] 07-06-2018 influenza, injectabl e, quadrivalent, preservative free Aashish Laguna MD Work Phone: [facility] 04-01-2018 pneumococcal polysaccharide vaccine, 23 valent Aashish Laguna MD Work Phone: [facility] 06-23-2017 influenza, injectabl e, quadrivalent, preservative free Aashish Laguna MD Work Phone: [facility] 07-08-2016 influenza, injectabl e, quadrivalent, preservative free Aashish Laguna MD Work Phone: [facility] 07-08-2016 Seasonal trivalent influenza vaccine, adjuvanted, preservative free Aashish Laguna MD Work Phone: [facility] 08-09-2015 influenza, seasonal, injectable, preservative free Aashish Laguna MD Work Phone: [facility] 07-10-2015 influenza, injectabl e, quadrivalent, preservative free Aashish Laguna MD Work Phone: [facility] 06-18-2013 zoster vaccine, live Aashish Laguna MD Work Phone: [facility] 05-19-2013 pneumococcal polysaccharide vaccine, 23 valent Aashish Laguna MD Work Phone: [facility] 09-10-2006 tetanus and diphther ia toxoids, adsorbed, preservative free, for adult use (5 Lf of tetanus toxoid and 2 Lf of diphtheria toxoid) Aashish Laguna MD Work Phone: [facility] Payers Date Payer Category Payer Private Health Insurance AARP Vt mber [id number] 2022 Unknown AARP AARP [id number] 2022-Present [address] [place] [address] [id number] 2016 Unknown AARP AARP [employer] [id number] 2016-Present [id number] .[id number] 2014 Unknown [id number] .[id number] 2014 Medicare MEDICARE MEDICAR E PART A & B [id number] 2014-Present [place] [id number] .[id number] 2014 Medicare MEDICARE MEDICAR E PART A & B xxxxxxxxxx 2014-Present [place] xxxxxxxxxx [id number] .[id number] 2014 Medicare [id number] .[id number] 1959 Medicare [id number] 1959 Self-pay [id number] 1959 Unknown [id number] 1949 Unknown [id number] 2.16.840.1.867025.3.579.2 .903 1949 Unknown [id number] 2.16.840.1.377104.3.579.2 .174 1949 Unknown [id number] 2.16.840.1.113005.3.579.2 .174 1949 Unknown [id number] 2.16.840.1.879230.3.579.2 .174 1949 Unknown [id number] 2.16.840.1.912305.3.579.2 .174 1949 Unknown [id number] 2.16.840.1.107213.3.579.2 .174 1949 Unknown [id number] 2.16.840.1.072923.3.579.2 .174 1949 Unknown [id number] 2.16.840.1.816695.3.579.2 .174 1949 Unknown [id number] 2.16.840.1.407784.3.579.2 .593 1949 Unknown [id number] 2.16.840.1.786277.3.579.2 .593 1949 Unknown [id number] 2.16.840.1.270336.3.579.2 .593 1949 Unknown [id number] 2.16.840.1.723198.3.579.2 .593 1949 Unknown [id number] 2.16.840.1.904675.3.579.2 .593 1949 Unknown [id number] 2.16.840.1.647932.3.579.2 .593 1949 Unknown [id number] 2.16.840.1.217508.3.579.2 .593 1949 Unknown [id number] 2.16.840.1.272660.3.579.2 .593 1949 Unknown [id number] 2.16.840.1.033708.3.579.2 .593 1949 Unknown [id number] 2.16840.1.380493.3.579.2 .593 1949 Unknown [id number] 2.840.1.670613.3.579.2 .593 1949 Unknown [id number] 2.840.1.461609.3.579.2 .1259 1949 Unknown [id number] 2.840.1.585604.3.579.2 .125 1949 Unknown [id number] 2.16840.1.698493.3.579.2 .1259 1949 Unknown [id number] 2.840.1.869241.3.579.2 .125 1949 Unknown [id number] 2.16840.1.175684.3.579.2 .1259 1949 Unknown [id number] 2.16840.1.772982.3.579.2 .125 1949 Unknown [id number] 2.840.1.818684.3.579.2 .1259 1949 Unknown [id number] 2.16840.1.335187.3.579.2 .1259 Medicare [employer] [id number] Unknown [id number] 2.16.840.1.476927.3.579.2 .531 Social History Date Type Detail Facility Start: 05-21-2019 End: 06-12-2023 Tobacco smoking status NHIS Never smoker [place], [place] Start: 05-21-2019 End: 06-12-2023 Tobacco use and exposure Never used [facility] Start: 05-21-2019 End: 10-26-2024 Alcohol intake Ex-drinker (finding) [facility] Start: 1950 Sex Assigned At Not on file M [place] Start: 05-17-2019 End: 10-26-2024 Alcohol intake No [place] Start: 05-01-2021 End: 09-17-2022 Alcohol intake Current non-drinker of alcohol (finding) [facility] Work Phone: Tobacco smoking status Never [facility] [employer] Start: 1950 Sex Assigned At Female F [facility] Start: 08-20-2023 End: 10-26-2024 History of Social function [facility] How often to you hav e a drink containing alcohol? Never [facility] Start: 08-20-2023 Education 13 [facility] Start: 06-12-2023 Alcohol Comment Caffeine intak e: 1 cup day of soda, occasional diet coke [facility] Work Phone: Start: 11-26-2024 Sex Female (finding) [facility] Medical Equipment Procedure Code Equipment Code Equipment Origin al Text Equipment Identifier Dates Closure Alana ruiz Se - [id number] FDA Start: 05-19-2019 Functional Status Date Assessment Result Facility 02-27-2022 Functional Status N/A [facility] Clinical Notes 03-26-2021 to 10-26-2024 Aashish Laguna [...] analytical performance characteristics have been determined by [facility] [place]. It has not been cleared or [...] in PM on an empty stomach. 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 We discussed how this [...] discussions. 5. BMI 40.0-44.9, adult (CMS/[facility]) Defines the morbid obesity documented in this encounter [facility] 08-23-2024 History of Present illness Narrative Images from the original note were not included. Angel Russ, DO Obstetrics and Gynecology Patricia Blake 1950 08/23/24 [id number] Yearly Wellness Exam Chief Complaint Patient presents with Gynecologic Exam Medicare yearly. LMP: 2003 HRT: None Last pap 08-14-22 neg. Last mammogram 10-02-23 [facility]. Denies breast, urinary, or bowel concerns. Visit [...] on an empty stomach. DUARTE; Sigma or [employer] brands only 180 tablet 1 metFORMIN (Glucophage) [...] PLACEMENT 12/04/2016 CORONARY STENT PLACEMENT 05/2019 CYSTOSCOPY [place] BREAST REDUCTION [place] LAP,CHOLECYSTECTOMY Past Medical History: Diagnosis Date Arthritis Atrial fibrillation with rapid ventricular response (CMS/HCC) Bilateral fibrocystic breast changes Bronchitis Cataracts, bilateral Chronic fatigue Congestive heart failure (CHF) (CMS/HCC) Depression (CMS/HCC) Diabetes (CMS/HCC) Diabetic nephropathy associated with type 2 diabetes mellitus (HCC) (CMS/HCC) H/O psychiatric care History of being hospitalized 06/2021 [facility] congestive heart failure, 3 days Hx of psychiatric care Hyperlipidemia (CMS/HCC) Hypertension (CMS/HCC) Hypothyroid (CMS/HCC) ESS Insulin resistance Irritable bowel syndrome with both constipation and diarrhea LAD (lymphadenopathy) Ostial LAD lesion 95% Me[place] (myocardial infarction) (CMS/HCC) x2 Mild pulmonary hypertension [...] costovertebral angle tenderness, no obvious scoliosis/kyphosis. 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 documented in this encounter [facility] 07-21-2024 History of Present illness Narrative Images [...] in PM on an empty stomach. DUARTE; Visonys or Plerts brands only 180 tablet 1 metFORMIN (Glucophage) [...] Refill: 1 6. 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 It has not been cleared or [...] 0.55 - 1.02 mg/dL Final TBH EGFR-AF NIGERIEN 03/12/2024 51 (L) >=60 Final TBH EGFR-NON AF NIGERIEN 03/12/2024 42 (L) >=60 Final BUN CREATININE [...] change in test platforms from the Bravo [employer] Rolling to the Marie alvarez c503 may have shifted HbA1c results compared to historical results. Based on laboratory validation testing conducted at [facility], the Marie platform relative to the Bravo [...] LDL-C. Grayson CALL et al. JAMIE. 2013;310(19): 0757-0752 (http://education.[employer]/faq/QXA356) CHOL/HDLC RATIO 02/04/2024 3.9 <5.0 (calc) Final [...] in PM on an empty stomach. DUARTE; Visonys or Plerts brands only 180 tablet 1 metFORMIN (Glucophage) [...] major depressive disorder, in partial remission (HCC) ([facility]/HCC) Chronic problem, stable In prescribing a renewal [...] 5 2. Chronic post-traumatic stress disorder (PTSD) ([facility]/HCC) Chronic problem, stable This is helping her [...] update. 5. BMI 40.0-44.9, adult (CMS/[facility]) Defines the morbid obesity 6. Hyperuricemia [...] tablet; Refill: 0 documented in this encounter [facility] 05-04-2024 History of Present illness Narrative Images [...] were performed or ordered by another health healthcare sales representative. These are documented in the electronic health record. These were reviewed with the patient. Telephone on 04/13/2024 Component Date Value Ref Range Status T3, TOTAL 04/13/2024 137 76 - 181 ng/dL Final T3 REVERSE, LC/MS/MS 04/13/2024 17 8 - 25 ng/dL Final Comment: This test was developed and its analytical performance characteristics have been determined by [facility] [place]. It has not been cleared or [...] 0.55 - 1.02 mg/dL Final TBH EGFR-AF NIGERIEN 03/12/2024 51 (L) >=60 Final TBH EGFR-NON AF NIGERIEN 03/12/2024 42 (L) >=60 Final BUN CREATININE [...] change in test platforms from the Bravo [employer] Rolling to the Marie alvarez c503 may have shifted HbA1c results compared to historical results. Based on laboratory validation testing conducted at [facility], the Marie platform relative to the Bravo [...] LDL-C. Grayson CALL et al. JAMIE. 2013;310(19): 8960-6900 (http://education.[employer]/faq/UXN225) CHOL/HDLC RATIO 02/04/2024 3.9 <5.0 (calc) Final [...] in PM on an empty stomach. DUARTE; Visonys or Plerts brands only 180 tablet 1 metFORMIN (Glucophage) [...] I discussed with the patient or their sales representative gas service, their fatigue issues. We discussed how this [...] nebulizer. We did make this also a iwki-wh-bmsh visit to get that part of the coverage out of the way while she is here. I certify that I had a hetk-lm-aloj encounter with this patient at todays office visit. Due to this medical condition the patient requires DME. I certify that based on my findings The DME ordered is medically necessary for this patient. This has been discussed with the patient and/or their sales representative gas service and mutually agreed upon. 7. Pulmonary hypertension [...] help venous insufficiency. documented in this encounter [facility] 04-28-2024 Telephone encounter Note Called Lora. Discussed to hold tonight's metformin. Discussed how to take. Stay hydrated. Call tomorrow if not better. [facility] 04-28-2024 Miscellaneous Notes Called Lora. Discussed to [...] she can have documented in this encounter [facility] 04-28-2024 Telephone encounter Note Lora called to move her appointment she has for tomorrow to next week. She states she is having a gout flare and can not get down her stairs to get to her car. She is asking if Dr. Laguna could send something in for her for the gout so she can have [facility] 10-15-2023 History of Present illness Narrative Patient ID: Patricia Blake is a 73 y.o. female who presents for: Pt here today to review his/hers thyroid labs and any medication changes needed. Fatigue: Present, worsened, hasn't been sleeping well, brother was killed in an accident in [facility] Weight Gain: Absent Inability to lose [...] analytical performance characteristics have been determined by [facility] [place] [place]. It has not been cleared or [...] to credit prescription drug management) Acquired hypothyroidism ([facility]) - levothyroxine (Synthroid, Levoxyl) 75 MCG [...] I discussed with the patient and/or their sales representative gas service, their fatigue issues. We discussed how this [...] major depressive disorder, in partial remission (HCC) ([facility]/HCC) - buPROPion SR (Wellbutrin SR) 150 MG [...] Chronic post-traumatic stress disorder (PTSD) (CMS/[facility]) Somewhat worsened as related to the above. documented in this encounter [facility] 10-15-2022 Note PROCEDURE: XR FOOT R T [...] authenticated by: KEVIN STEWART Date: 2022-10-15 13:30 [facility] 09-17-2022 History of Present illness Narrative 1017 - Lexiscan started. Pt tolerating well so far. 1020 - Continues to tolerate procedure with no complaints. 1022 - Pt tolerated procedure without complaints. Provided with snack at this time. documented in this encounter [employer] Phone: 02-27-2022 Hospital Discharge instructions Patient Education [...] fried and sweet foods. General instructions Take pipz-abe-emcvcdz and prescription medicines only as told by [...] 06/21/2010 Document Revised: 12/16/2019 Document Reviewed: 09/10/2018 [email or web address] Patient Education 2020 TCAS Online. Follow Up Care 02/06/2022 15:12:13 With:LOUANN BATISTA, LILIAM Ruiz, URL Address: [address] [place] [address] When: Unknown [facility] [employer] 10-08-2021 Note Pulmonary Medicine COVID-19 Frequently Asked Questions COVID-19 (coronavirus disease) is an infection that is caused by a large family of viruses. Some viruses cause illness in people and others cause illness in animals like camels, cats, and bats. In some cases, the viruses that cause illness in animals can spread to humans. Where did the coronavirus come from? In August 2019, [place] told the World Health Organization (WHO) of several cases of lung disease (human respiratory illness). These cases were linked to an open seafood and livestock market in the city [place] [facility]. The link to the seafood and [...] virus naming World Health Organization (WHO): www.who.int/emergencies/diseases/ qgcpy-gbuxrrcckow-7516/technical- guidance/zdmutc-ldc-dafvsprlzxj-d isease-(covid-2019)-cij-ltq-wcwzn -tuoz-nhwbmi-es Who is at risk for complications from [...] Samples may in (more content not included)... [facility] 03-26-2021 Note HPI Staff Pt is here [...] 09/26/[address] [address]- Additional Instructions: Patient Education Calorie Counting for [...] Glucose Urine Dipstic (more content not included)... [facility] Comment on above: Result Comment: Elec tronically Signed By: Niru CASTLE MD\.br\Date and Time Signed: 03/26/21 10:56 EDT\.br\Electronically Co-Signed By: Mayra Robert MA\.br\Date and Time Co-Signed: 03/26/21 10:53 EDT Evaluation + Plan note No data available for this section [facility] Evaluation note Diagnosis Atrial fibrillation, new onset (HCC) Atrial fibrillation documented in this encounter [employer] Phone: evaluation note* Diagnosis Atrial fibrillation, new onset (HCC) Atrial fibrillation Essential hypertension Unspecified essential hypertension Anemia, unspecified type documented in this encounter [facility] Work Phone: [email or web address] note* Diagnosis Atrial fibrillation, new onset (HCC) Atrial fibrillation documented in this encounter [employer] Phone: [email or web address] note* Diagnosis Atrial fibrillation, new onset (HCC) Atrial fibrillation documented in this encounter [employer] Phone: [email or web address] note* Diagnosis Abnormal EKG Nonspecific abnormal electrocardiogram (ECG) (EKG) Chest pain, unspecified type documented in this encounter [employer] Phone: evaluation noteNo assessment information available [facility] Work Phone: Evaluation note* Diagnosis Mild cognitive impairment with memory loss- Primary Mild cognitive impairment, so stated ESS (euthyroid sick syndrome) Euthyroid sick syndrome Acquired hypothyroidism (CMS/HCC) Unspecified hypothyroidism Chronic fatigue syndrome Recurrent major depressive disorder, in partial remission (HCC) (CMS/HCC) Chronic post-traumatic stress disorder (PTSD) (CMS/HCC) documented in this encounter [facility] Healthcare[facility] note* Diagnosis Essential hypertension Unspecified essential hypertension Stage 3b chronic kidney disease (HCC) (CMS/HCC) Type 2 diabetes mellitus with stage 3b chronic kidney disease, without long-term current use of insulin (HCC) (CMS/HCC) Microalbuminuric diabetic nephropathy ([facility]) Hyperlipidemia, mixed ([facility]) Mixed hyperlipidemia Coronary artery disease involving iroquois coronary artery of iroquois heart without angina pectoris ([facility]) Pulmonary hypertension ([facility]) Other chronic pulmonary heart diseases Morbid obesity ([facility]) Morbid obesity BMI 40.0-44.9, adult ([facility]) [facility]* Diagnosis Recurrent major depressive disorder, in partial remission (HCC) ([facility]) Chronic post-traumatic stress disorder (PTSD) ([facility]) Mild cognitive impairment with memory loss Mild cognitive impairment, so stated Morbid obesity ([facility]) Morbid obesity BMI 40.0-44.9, adult ([facility]) Hyperuricemia Other abnormal blood chemistry Acute [...] encounter [facility]* Diagnosis Acquired hypothyroidism ([facility])- Primary Unspecified hypothyroidism ESS (euthyroid sick syndrome) Euthyroid sick syndrome Chronic fatigue Other malaise and fatigue Morbid obesity ([facility]) Morbid obesity BMI 40.0-44.9, adult ([facility]) Dyspnea on exertion Other dyspnea and respiratory abnormality Pulmonary hypertension ([facility]) Other chronic pulmonary heart diseases Paroxysmal atrial fibrillation ([facility]) Atrial fibrillation Stage 3b chronic kidney disease (HCC) ([facility]) Iron deficiency anemia, unspecified iron deficiency anemia type Chronic venous insufficiency of lower extremity Recurrent major depressive disorder, in partial remission (HCC) ([facility]) Chronic post-traumatic stress disorder (PTSD) ([facility]) Mild cognitive impairment with memory loss Mild cognitive impairment, so stated Morbid obesity ([facility]) Morbid obesity BMI 40.0-44.9, adult ([facility]) [facility]* Diagnosis Acquired hypothyroidism ([facility])- Primary Unspecified hypothyroidism Chronic fatigue Other malaise and fatigue ESS (euthyroid sick syndrome) Euthyroid sick syndrome Morbid obesity ([facility]) Morbid obesity BMI 40.0-44.9, adult ([facility]) Encounter for Medicare annual wellness exam Advance directive in chart Encounter for screening for other disorder Screening for alcohol problem Screening for alcoholism Morbid obesity ([facility]) Morbid obesity BMI 40.0-44.9, adult ([facility]) Type 2 diabetes mellitus with stage 3a chronic kidney disease, without long-term current use of insulin (HCC) ([facility]) Stage 3b chronic kidney disease (HCC) ([facility]) Essential hypertension Unspecified essential hypertension Microalbuminuric diabetic nephropathy ([facility]) Hyperlipidemia, mixed ([facility]) Mixed hyperlipidemia documented in this encounter [facility] note No data available for this section [facility] [place] Summary Purpose Family History No Family History Records FoundNo Family History Records FoundNo Family History Records FoundNo Family History Records FoundNo Family History Records FoundNo Family History Records FoundNo Family History Records FoundNo Family History Records Found Advance Directives No Advanced Directives Records FoundDocuments on File Type Date 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 Advance Directives and Livin g Will 05/19/2019 6:06 AM Latest Code Status on File Code Status Date Activated Date Inactivated Comments Full Code 05/19/2019 7:44 AM Documents on File Type Date 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 Advance Directives and Living Will Power of Property Field Inspector Documents on File Type Date 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 Advance Directives and Living Will Power of Property Field Inspector Documents on File Type Date 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 ACP-Advance Directive ACP-Power of Property Field Inspector Documents on File Type Date 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 ACP-Advance Directive ACP-Power of Property Field Inspector Advance Directive Response Recorded Date/ Time Advance Directives No July 9:50am Advance Directive Response Recorded Date/ Time Advance Directives No July 10:50am Documents on File Type Date 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 Advance Directives and Living Will 04/26/2019 2019-04-26 DNR Advance Directives and Living Will 04/19/2019 [id number] Wi ll Discharge Instructions * Instructions* Candace [...] EKG 12 Lead Pacheco Carter MD [address] [place] [address] Status Reason Specialty Diagnoses / Procedures Referre d By Contact Referred To Contact Open Cardiology Diagnoses Atrial fibrillation, new onset (HCC) Procedures EKG 12 Lead Pacheco Carter MD [address] [place] [address] Specialty Diagnoses / Procedures Referred By Contac t Referred To Contact Cardiology Diagnoses Atrial fibrillation, new onset (HCC) Procedures EKG 12 Lead Pacheco Carter MD [address] [place] [address] Referral ID Status Reason Start Date Expiration Date Visits Re quested Visits Authorized Open 03/12/2022 03/12/2023 1 1 Specialty Diagnoses / Procedures Referred By Contac t Referred To Contact Cardiology Diagnoses Abnormal EKG Chest pain, unspecified type Procedures Stress test, Pacheco Santo MD [address] [place] [id number] Referral ID Status Reason Start Date Expiration Date Visits Re quested Visits Authorized [id number] Closed 09/17/2022 09/17/2023 4 4 Assessments Diagnosis [...] section and content) DATE CREATED AUTHOR 06/09/2019 [facility] DATE CREATED AUTHOR AUTHOR'S ORGANIZ ATION 11/17/2021 [facility] dical Specialist DATE CREATED AUTHOR AUTHOR'S ORGANIZ ATION 02/28/2022 [facility] DATE CREATED AUTHOR AUTHOR'S ORGANIZ ATION 09/20/2022 [facility] DATE CREATED AUTHOR AUTHOR'S ORGANIZ ATION 12/13/2022 [facility] DATE CREATED AUTHOR AUTHOR'S ORGANIZ ATION 10/25/2024 [facility] DATE CREATED AUTHOR AUTHOR'S ORGANIZ ATION 11/11/2024 [facility] dical Specialists EPIC DATE CREATED AUTHOR AUTHOR'S ORGANIZ ATION 11/27/2024 [facility] Niru Carter MD - 05/18/2019 7:40 AM EDT H&P Notes (unrecognized sect ion and content) Niru Carter M.D. [facility] [address] [place] [address] May 17, 2019 Aashish Laguna MD [address] [place] [address] RE: Patricia Blake : [address] [...] FAMILY HISTORY: Mother at 73 of an [place]. Father of [place] at 76. Three brothers at 64, 55, and 76. One sister had an [place] at 79. SOCIAL HISTORY: She is 69 years old. Never . No children. Lives in [place]. 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 She has not been exercising because of [...] Lexiscan Cardiolite stress test in April at [place] showing anterior wall ischemia or infarct, intermediate [...] contact me. Sincerely, NIRU CARTER [id number] Doc#: [id number] documented in this encounter Reason for Visit (unrecogniz ed section and content) Status Reason Specialty Diagnoses / Procedures Re ferred By Contact Referred To Contact Closed Cardiology Diagnoses Unspecified atrial fibrillation Procedures [place] CARDIOVERSION ELECTIVE ARRHYTHMIA EXTERNAL Pacheco Carter MD [address] [place] [phone] [facility] [address] [place] [address] Specialty Diagnoses / Procedures Referred By Contac t Referred To Contact Diagnoses Atrial fibrillation, new onset (HCC) SOB (shortness of breath) I48.91 (ICD-10-CM) - Atrial fibrillation, new onset (HCC) Procedures Holter Monitor 48 Hour [place] CARDIOVERSION ELECTIVE ARRHYTHMIA EXTERNAL [id number] - [place] CARDIOVERSION ELECTIVE ARRHYTHMIA EXTERNAL Pacheco Carter MD [address] [place] [phone] Referral ID Status Reason Start Date Expiration Date Visits Re quested Visits Authorized [id number] Closed 05/02/2021 05/02/2022 1 1 Specialty Diagnoses / Procedures Referred By Contac t Referred To Contact Cardiology Diagnoses Abnormal EKG Chest pain, unspecified type Procedures Stress test, lexiscPacheco Srivastava MD [address] [place] [phone] Referral ID Status Reason Start Date Expiration Date Visits Re quested Visits Authorized [id number] Closed 09/17/2022 09/17/2023 4 4 Reason Comments Hypothyroidism Reason Comments Hypertension Hyperlipidemia Diabetes Reason Comments Anxiety Sleeping Problem Reason Comments Gynecologic Exam Medicare yearly.LMP: 2004HRT: NoneLast pap 08-14-22 neg.Last mammogram 10-02-23 [facility].Denies breast, urinary, or bowel concerns. Care Teams (unrecognized sec tion and content) Wrapper Stemmer Hand Relationship Specialty Start Date End Date Aashish Laguna MD PCP - General 11/14/16 Wrapper Stemmer Hand Relationship Specialty Start Date End Date Aashish Laguna MD PCP - General 11/14/16 Wrapper Stemmer Hand Relationship Specialty Start Date End Date Aashish Laguna MD PCP - General 11/14/16 Wrapper Stemmer Hand Relationship Specialty Start Date End Date Aashish Laguna MD PCP - General 11/14/16 Team Status: Inactive Member Role Status Dates Aashihs Laguna MD Primary Care Provider, Attending Provider [...] October 02, 2023 End: October 02, 2023 Wrapper Stemmer Hand Relationship Specialty Start Date End Date Aashish Laguna MD [address] [place] [phone] (Fax) PCP - ACO Reach 01/30/23 Aashish Laguna MD [address] [place] [address] PCP - General Family Medicine 03/20/23 Niru Carter MD [address] [place], [place] [phone] Referring Physician Cardiology 08/20/23 Wrapper Stemmer Hand Relationship Specialty Start Date End Date Aashish Laguna MD [address] [place], [place] [address] [place] [address] (Fax) PCP - ACO Reach 01/30/23 Aashish Laguna MD [address] [place] [address] PCP - General Family Medicine 03/20/23 Niru Carter MD [address] [place] [phone] Referring Physician Cardiology 08/20/23 Wrapper Stemmer Hand Relationship Specialty Start Date End Date Aashish Laguna MD [address] [place] [address] (Fax) PCP - ACO Reach 01/30/23 Aashish Laguna MD [address] [place] [address] (Fax) PCP - General Family Medicine 03/20/23 Niru Carter MD [address] [place] [address] Referring Physician Cardiology 08/20/23 Niru Castle MD [address] [place] [address] Referring Physician Urology 12/02/23 Wrapper Stemmer Hand Relationship Specialty Start Date End Date Aashish Laguna MD [address] [place] [address] (Fax) PCP - ACO Reach 01/30/23 Aashish Laguna MD [address] [place] [address] (Fax) PCP - General Family Medicine 03/20/23 Niru Carter MD [address] [place] [phone] Referring Physician Cardiology 08/20/23 Niru Castle MD [address] [place] [address] Referring Physician Urology 12/02/23 Wrapper Stemmer Hand Relationship Specialty Start Date End Date Aashish Laguna MD [address] [place] [address] PCP - ACO Reach 01/30/23 Aashish Laguna MD [address] [place] [address] PCP - General Family Medicine 03/20/23 Niru Carter MD [address] [place] [phone] Referring Physician Cardiology 08/20/23 Niru Castle MD [address] [place] [address] Referring Physician Urology 12/02/23 Wrapper Stemmer Hand Relationship Specialty Start Date End Date Aashish Laguna MD [address] [place] [address] (Fax) PCP - ACO Reach 01/30/23 Aashish Laguna MD [address] [place] [address] PCP - General Family Medicine 03/20/23 Niru Carter MD [address] [place] [address] Referring Physician Cardiology 08/20/23 Niru Castle MD [address] [place] [address] Referring Physician Urology 12/02/23 Wrapper Stemmer Hand Relationship Specialty Start Date End Date Aashish Laguna MD [address] [place] [address] PCP - ACO Reach 01/30/23 Aashish Laguna MD [address] [place] [phone] PCP - General Family Medicine 03/20/23 Niru Carter MD [address] [place] [phone] Referring Physician Cardiology 08/20/23 Niru Castle MD [address] [place] [address] Referring Physician Urology 12/02/23 Wrapper Stemmer Hand Relationship Specialty Start Date End Date Aashish Laguna MD [address] [place] [address] PCP - ACO Reach 01/30/23 Aashish Laguna MD [address] [place] [phone] PCP - General Family Medicine 03/20/23 Niru Carter MD [address] [place] [address] Referring Physician Cardiology 08/20/23 Niru Castle MD [address] [place] [address] Referring Physician Urology 12/02/23 Wrapper Stemmer Hand Relationship Specialty Start Date End Date Aashish Laguna MD [address] [place] [address] PCP - ACO Reach 01/30/23 Aashish Laguna MD [address] [place] [address] PCP - General Family Medicine 03/20/23 Niru Carter MD [address] [place] [phone] Referring Physician Cardiology 08/20/23 Niru Castle MD [address] [place] [address] Referring Physician Urology 12/02/23 Wrapper Stemmer Hand Relationship Specialty Start Date End Date Aashish Laguna MD [address] [place] [address] PCP - ACO Reach 01/30/23 Aashish Laguna MD [address] [place] [address] PCP - General Family Medicine 03/20/23 Niru Carter MD [address] [place] [address] Referring Physician Cardiology 08/20/23 Niru Castle MD [address] [place] [address] Referring Physician Urology 12/02/23 Wrapper Stemmer Hand Relationship Specialty Start Date End Date Aashish Laguna MD [address] [place] [address] PCP - ACO Reach 01/30/23 Aashish Laguna MD [address] [address] PCP - General Family Medicine 03/20/23 Niru Carter MD [address] [place] [address] Referring Physician Cardiology 08/20/23 Niru Castle MD [address] [place] [address] Referring Physician Urology 12/02/23 Wrapper Stemmer Hand Relationship Specialty Start Date End Date Aashish Laguna MD [address] [address] PCP - ACO Reach 01/30/23 Aashish Laguna MD [address] [place] [address] PCP - General Family Medicine 03/20/23 Niru Carter MD [address] [place], [place] [phone] Referring Physician Cardiology 08/20/23 Niru Castle MD [address] [place] [address] Referring Physician Urology 12/02/23 Team Status: Inactive [...] BE BASED ON THE PRIMARY CLINICAL RECORDS. [employer] provides no warranty or guarantee of the accuracy or completeness of information in this document.
[2024-11-28 05:43] LABS: Basophils Percent Auto 0.2 % (0.2-2.0); Eosinophils Absolute Auto 0.1 10^3/uL (0.0-0.7); Eosinophils Percent Auto 0.7 % (0.9-7.0); Hematocrit 32.2 % (36.0-48.0); Hemoglobin 9.9 g/dL (12.0-16.0); Immature Granulocytes Abs Auto 0.03 10^3/uL (0.00-0.03); Immature Granulocytes Pct Auto 0.3 % (0.0-0.5); Lymphocytes Absolute Auto 1.8 10^3/uL (1.2-3.8); Lymphocytes Percent Auto 19.8 % (20.5-60.0); Mean Corpuscular HGB Conc 30.7 g/dL (29.9-35.2); Mean Platelet Volume 12.1 fL (9.5-13.5); Monocytes Absolute Auto 0.6 10^3/uL (0.3-0.8); Monocytes Percent Auto 6.9 % (1.7-12.0); Neutrophils Absolute Auto 6.5 10^3/uL (1.4-6.5); Neutrophils Percent Auto 72.1 % (43.0-75.0); Platelet Count 187 10^3/uL (150-450); Red Blood Count 3.66 10^6/uL (4.20-5.40); Red Cell Distribution Width 16.1 % (11.0-15.0); White Blood Count 9.1 10^3/uL (4.0-11.0)
[2024-11-28 05:50] LABS: Erythrocyte Sedimentation Rate 68 mm/hr (<=30)
[2024-11-28 05:54] LABS: Estimated Average Glucose 123 mg/dL; Glycohemoglobin A1C 5.9 % (4.5-6.2)
[2024-11-28 05:59] LABS: Chol HDL Ratio 2.7; Cholesterol 98 mg/dL (<=200); HDL Cholesterol 36 mg/dL (40-60); Triglycerides 78 mg/dL (<=150); VLDL CHOLESTEROL 15.6 mg/dL
[2024-11-28 06:08] LABS: Alanine Aminotransferase 17 U/L (14-59); Albumin Globulin Ratio 0.8; Albumin Level 3.1 g/dL (3.4-5.0); Alkaline Phosphatase 72 U/L (46-116); Anion Gap 11.3; Aspartate Amino Transferase 24 U/L (15-37); BUN Creatinine Ratio 23.3; Bilirubin Total 0.5 mg/dL (0.2-1.0); C Reactive Protein 14.73 mg/dL (<=0.50); Calcium 8.9 mg/dL (8.5-10.1); Carbon Dioxide 27.9 mmol/L (21.0-32.0); Chloride 106 mmol/L (98-107); Creatine Kinase 226 U/L (26-192); Estimated GFR (African America >60 (>=60 mL/min/1.73m^2); Estimated GFR (Non-African Ame 52 (>=60 mL/min/1.73m^2); Globulin 3.8 g/dL; Glucose 112 mg/dL (74-106); Magnesium 1.8 mg/dL (1.8-2.4); Potassium 3.2 mmol/L (3.5-5.1); Sodium 142 mmol/L (136-145); TSH W/ REFLEX FT4 3.083 uIU/mL (0.358-3.740); Total Protein 6.9 g/dL (6.4-8.2); Troponin I High Sensitivity 18.8 pg/mL (4.0-51.3)
[2024-11-28] MEDS: dilTIAZem HCL 125 MG in 0.9 % SODIUM CHLORIDE 100 ML 15 MG IV (07:10)
[2024-11-28] MEDS: LIOTHYRONINE SODIUM 5 MCG TABLET PO ×2 (08:27→20:38)
[2024-11-28] MEDS: BUPROPION HCL 150 MG SR TABLET 12H PO ×2 (08:27→20:38)
[2024-11-28] MEDS: ISOSORBIDE MONONITRATE 30 MG TAB.ER.24H PO (08:27)
[2024-11-28] MEDS: LEVOTHYROXINE SODIUM 75 MCG TABLET 150 MCG PO (08:27)
[2024-11-28] MEDS: APIXABAN 5 MG TABLET PO ×2 (08:31→20:38)
[2024-11-28] MEDS: ALLOPURINOL 100 MG TABLET PO (08:31)
[2024-11-28] MEDS: METOPROLOL TARTRATE 50 MG TABLET PO (08:31)
[2024-11-28] MEDS: GEMFIBROZIL 600 MG TABLET PO ×2 (08:31→20:38)
[2024-11-28] MEDS: ALBUTEROL SULFATE 2.5 MG/3 ML VIAL NEB IH (08:52)
[2024-11-28] MEDS: PREDNISONE 20 MG TABLET 50 MG PO (10:13)
[2024-11-28] MEDS: DILTIAZEM HCL 120 MG CAP.ER.24H PO ×2 (10:59→23:18)
--- NOTE | 2024-11-28 11:04 | P.HP_ITS ---
HPI H&P: HPI History of Present Illness Chief complaint: FALL, AFIB Narrative: 74 y/o female to ER after a fall. History of gout and woke up yesterday with severe pain in right foot. Foot red and warm to touch. Sat on commode and not able to stand due to pain. Laid on floor all day and not able to get up. History of afib and did not take medication. Called EMS in evening and brought to ER. In ER found rapid afib and rate 150s-160s. Gave dose IV cardizem then started drip. Labs showed evidence of rhabdo with elevated myoglobin. UA showed UTI. Did not give fluids due to history HFpEF. Echo May 2023 showed EF 55-60%. Admitted for treatment. Opioid HPI Opioid Management Most Recent Pain and Opioid Data: Last Pain Scale 5 11/28/24 11:00 11/28/24 Last Pain Assessment 11/28/24 11:00 Last ORT Total Score 0 11/28/24 05:00 11/28/24 Last ORT Risk Category Low Risk 11/28/24 05:00 11/28/24 Review of Systems ROS Constitutional Denies: fever, chills or fatigue Cardiovascular Denies: chest pain, palpitations, edema or lightheadedness Gastrointestinal Denies: abdominal pain, nausea or vomiting Genitourinary Denies: painful urination [facility] Medical History (Updated 11/28/24 @ 11:21 by Jose Daniel Hawkins MD) CKD stage 3b, GFR 30-44 ml/min ?N18.32 - Chronic kidney disease, stage 3b (ICD-10) Paroxysmal atrial fibrillation ?I48.0 - Paroxysmal atrial fibrillation (ICD-10) Atrial fibrillation ?I48.91 - Unspecified atrial fibrillation (ICD-10) Pneumonia ?J18.9 - Pneumonia, unspecified organism (ICD-10) Congestive heart failure ?I50.9 - Heart failure, unspecified (ICD-10) Depression ?F32.A - Depression, unspecified (ICD-10) Gout ?M10.9 - Gout, unspecified (ICD-10) Type 2 diabetes mellitus ?E11.9 - Type 2 diabetes mellitus without complications (ICD-10) Chronic a-fib ?I48.20 - Chronic atrial fibrillation, unspecified (ICD-10) Gallbladder & bile duct stone with obstruction ?K80.71 - Calculus of gallbladder and bile duct without cholecystitis with obstruction (ICD-10) Surgical History (Updated 11/28/24 @ 04:55 by Nelia Ramos) History of cholecystectomy ?Z90.49 - Acquired absence of other specified parts of digestive tract (ICD- 10) Family History Other Family history of CHF (congestive heart failure) Family history of diabetes mellitus Family history of hypertension Family history of myocardial infarction Family history of stroke Social History (Updated 11/28/24 @ 04:56 by Nelia Ramos) Within the past year, how often did you have a drink containing alcohol: never Within the past year, how often did you have six or more drinks on one occasion: never Score interpretation: A score less than 3 is consistent with normal alcohol consumption. 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: [employer] Highest level of school completed/degree received: 12th grade, no diploma Little interest or pleasure in doing things: several days Feeling down, depressed, or hopeless: not at all Do you think of yourself as: straight/heterosexual Gender Identity: female Meds Home Medications and Allergies Home Medications ?Medication ?Instructions ?Recorded ?Confirmed ?Type albuterol sulfate 90 mcg/actuation 2 inh inhalation Q6H PRN shortness 06/01/23 11/28/24 History aerosol inhaler of breath or wheezing allopurinol 100 mg tablet 100 mg PO DAILY 06/01/23 11/28/24 History apixaban 5 mg tablet (Eliquis) 5 mg PO BID 06/01/23 11/28/24 History atorvastatin 10 mg tablet 10 mg PO DAILY 06/01/23 11/28/24 History bupropion HCl 150 mg tablet,12 hr 150 mg PO Q12H 06/01/23 11/28/24 History sustained-release diltiazem HCl 120 mg 120 mg PO Q12H 06/01/23 11/28/24 History capsule,extended release 24 hr furosemide 20 mg tablet 20 mg PO DAILY 06/01/23 11/27/24 History gemfibrozil 600 mg tablet 600 mg PO BID 06/01/23 11/28/24 History isosorbide mononitrate 30 mg 30 mg PO DAILY 06/01/23 11/28/24 History tablet,extended release 24 hr liothyronine 5 mcg tablet 5 mcg PO BID 06/01/23 11/28/24 History metformin 1,000 mg tablet 1,000 mg PO BID 06/01/23 11/28/24 History metoprolol tartrate 50 mg tablet 50 mg PO Q12H 06/01/23 11/28/24 History levothyroxine 300 mcg tablet 150 mcg PO DAILY 06/02/23 11/28/24 History (Unithroid) Allergies Allergy/AdvReac Type Severity Reaction Status Date / Time Penicillins Allergy Intermediate Rash Verified 11/27/24 21:27 Sulfa (Sulfonamide AdvReac Intermediate Rash Verified 11/27/24 21:27 Antibiotics) Exam Constitutional Vital Signs, click to edit/add: Last Vital Signs Temp 98.4 F 11/28/24 08:00 Pulse 94 H 11/28/24 09:54 Resp 24 H 11/28/24 09:15 BP 113/61 11/28/24 10:59 Pulse Ox 99 11/28/24 09:00 O2 Del Method Room Air 11/28/24 08:53 Documenting provider has reviewed patient's vital signs: yes Common normals: no apparent distress, oriented x3 and alert HENMT Common normals: normocephalic Eye Common normals: PERRL and EOMs intact bilaterally Respiratory Common normals: normal respiratory effort and clear to auscultation bilaterally Cardio Common normals: regular rate, no gallops, no murmurs and no rub Rhythm: abnormal rhythm irregularly irregular GI Common normals: Normal to inspection, nondistended, normoactive bowel sounds present and non-tender Extremity Common normals: no pedal edema Results Labs Labs: Short CBC 11/27/24 11/28/24 Range/Units 21:28 05:33 WBC 9.8 9.1 (4.0-11.0) 10^3/uL Hgb 10.6 L 9.9 L (12.0-16.0) g/dL Hct 33.9 L 32.2 L (36.0-48.0) % Plt Count 181 187 (150-450) 10^3/uL BMP 11/27/24 11/28/24 21:28 05:33 Sodium 138 142 Potassium 3.4 L 3.2 L Chloride 104 106 Carbon Dioxide 25.6 27.9 BUN 21.0 H 24.0 H Creatinine 0.99 1.03 H Glucose 102 112 H Calcium 9.4 8.9 Cardiac Enzymes 11/28/24 Range/Units 05:33 Total Creatine Kinase 226 H (26-192) U/L Liver Function 11/28/24 Range/Units 05:33 Total Bilirubin 0.5 (0.2-1.0) mg/dL AST 24 (15-37) U/L ALT 17 (14-59) U/L Alkaline Phosphatase 72 (46-116) U/L Albumin 3.1 L (3.4-5.0) g/dL Urine 11/28/24 Range/Units 00:06 Urine Color Yellow (YELLOW) Urine Clarity Sl cloudy (CLEAR) Urine pH 5.5 (5.0-9.0) Ur Specific Ebony >=1.030 A (1.005-1.025) Urine Protein Trace (NEG/TRACE) mg/dL Urine Glucose (UA) Negative (NEGATIVE) mg/dL Assessment and Plan Assessment and Plan (1) Atrial fibrillation with RVR: (2) Rhabdomyolysis: Qualifiers: Rhabdomyolysis type: non-traumatic Qualified Code(s): M62.82 - Rhabdomyolysis (3) Gout flare: Qualifiers: Gout site: foot Gout etiology: idiopathic Laterality: right Qualified Code(s): M10.071 - Idiopathic gout, right ankle and foot (4) Acute UTI (urinary tract infection): (5) Diabetes mellitus: Qualifiers: Diabetes mellitus type: type 2 Diabetes mellitus termination clerk insulin use: without shelter use Diabetes mellitus complication status: with kidney complications Diabetes mellitus complication detail: with chronic kidney disease Chronic kidney disease stage: stage 3 (moderate) Chronic kidney disease stage 3 subtype: stage 3a (GFR 45-59) Qualified Code(s): E11.22 - Type 2 diabetes mellitus with diabetic chronic kidney disease; N18.31 - Chronic kidney disease, stage 3a (6) Benign essential hypertension: (7) Chronic heart failure with preserved ejection fraction (HFpEF): (8) Hypothyroidism (acquired): (9) Interstitial lung disease: (10) CAD (coronary artery disease): Qualifiers: Coronary Disease-Associated Artery/Lesion type: [place] artery [place] vs. transplanted heart: [place] heart Associated angina: without angina Qualified Code(s): I25.10 - Atherosclerotic heart disease of [place] coronary artery without angina pectoris (11) CKD stage 3a, GFR 45-59 ml/min: Plan Found rapid afib after not taking medication and improved with cardizem drip. Resumed oral metoprolol. Will resume oral cardizem and stop drip. On ground for hours and labs showed rhabdomyolysis. Start IV fluids and monitor for signs of fluid overload due to history of CHF. Started Rocephin for UTI and will await culture results. Continued pain in right foot and uric acid 9. Add oral prednisone and increase allopurinol. Repeat echo. Start PT/OT. Resume other home medication. Will monitor labs and vitals. Plan on at least a 2 midnight stay for inpatient medially necessary services.
[2024-11-28] MEDS: POTASSIUM CHLORIDE IN 0.9%NACL 1,000 ML 75 ML IV (11:19)
[2024-11-28 11:47] LABS: Glucometer 187 mg/dL (74-106)
[2024-11-28] MEDS: INSULIN ASPART 300 UNIT/3 ML PEN SUBQ ×3 (11:54→23:19)
--- NOTE | 2024-11-28 12:23 | PC.NURSE ---
Pt transferred to Med-surg room 217. Staying with primary nurse Jessica Sherman RN. Pt told staff that she would call her friend to update them. Belongings transferred with pt and lunch ordered. Denies further needs at this time.
[2024-11-28] MEDS: NYSTATIN 15 GM POWDER 1 APPLIC TOPICAL ×2 (14:10→23:18)
[2024-11-28] MEDS: METOPROLOL TARTRATE 5 MG/5 ML VIAL IVP (15:10)
[2024-11-28 16:03] LABS: Glucometer 201 mg/dL (74-106)
[2024-11-28] MEDS: METOPROLOL TARTRATE 100 MG TABLET PO (19:37)
--- NOTE | 2024-11-28 20:05 | RESP.RT ---
No PRN breathing tx given. Pt denies need. No respiratory distress noted.
[2024-11-28 20:44] LABS: Glucometer 260 mg/dL (74-106)
[2024-11-28] MEDS: ATORVASTATIN CALCIUM 10 MG TABLET PO (23:18)
[2024-11-29] VITALS (12 sets, daily range): BP systolic 112–142; BP diastolic 60–80; PULSE 79–116; TEMP 36.3–36.6; O2SAT 95–98
[2024-11-29] MEDS: POTASSIUM CHLORIDE IN 0.9%NACL 1,000 ML 75 ML IV (00:48)
[2024-11-29 06:07] LABS: Basophils Percent Auto 0.1 % (0.2-2.0); Eosinophils Absolute Auto 0.1 10^3/uL (0.0-0.7); Eosinophils Percent Auto 0.5 % (0.9-7.0); Hematocrit 32.3 % (36.0-48.0); Hemoglobin 10.1 g/dL (12.0-16.0); Immature Granulocytes Abs Auto 0.03 10^3/uL (0.00-0.03); Immature Granulocytes Pct Auto 0.3 % (0.0-0.5); Lymphocytes Absolute Auto 1.7 10^3/uL (1.2-3.8); Mean Corpuscular HGB Conc 31.3 g/dL (29.9-35.2); Mean Corpuscular Hemoglobin 27.5 pg (26.7-34.0); Mean Platelet Volume 11.8 fL (9.5-13.5); Monocytes Absolute Auto 0.5 10^3/uL (0.3-0.8); Monocytes Percent Auto 5.4 % (1.7-12.0); Neutrophils Absolute Auto 7.6 10^3/uL (1.4-6.5); Neutrophils Percent Auto 76.7 % (43.0-75.0); Platelet Count 175 10^3/uL (150-450); Red Blood Count 3.67 10^6/uL (4.20-5.40); Red Cell Distribution Width 16.2 % (11.0-15.0); White Blood Count 9.9 10^3/uL (4.0-11.0)
[2024-11-29 06:26] LABS: Anion Gap 13.4; BUN Creatinine Ratio 21.3; Calcium 8.9 mg/dL (8.5-10.1); Carbon Dioxide 25.6 mmol/L (21.0-32.0); Chloride 111 mmol/L (98-107); Creatine Kinase 129 U/L (26-192); Estimated GFR (African America >60 (>=60 mL/min/1.73m^2); Estimated GFR (Non-African Ame >60 (>=60 mL/min/1.73m^2); Glucose 108 mg/dL (74-106); Myoglobin 68 ng/mL (9-82); Sodium 146 mmol/L (136-145)
[2024-11-29] MEDS: NYSTATIN 15 GM POWDER 1 APPLIC TOPICAL ×3 (06:54→21:06)
--- NOTE | 2024-11-29 07:00 | CA_ITS ---
Patient Name: PATRICIA ORNELAS MR#: [id number] : 1950 Exam Date: 11/29/2024 Ordering Doctor: NIRANJAN GREGORY ECHOCARDIOGRAM REPORT PROCEDURE: CA ECHO DOPPLER COMPLETE INDICATIONS: A-fib w/RVR, heart failure, diabetes, chronic kidney disease COMPARISON: None. DESCRIPTION: COMPLETE ECHOCARDIOGRAM Real-time transthoracic echocardiography with 2D, M-mode, spectral and color flow Doppler performed. QUALITY: Technical quality was good. LEFT VENTRICLE: Normal chamber size. Normal left ventricular wall thickness. LV EF: Global left ventricular systolic function is difficult to assess but appears preserved; visually estimated ejection fraction is 55%. Unable to assess regional wall motion abnormalities. DIASTOLIC: Not adequately assessed due to heart rhythm. ATRIAL SEPTUM: Inadequately seen. LEFT ATRIUM: Severe dilatation. RIGHT ATRIUM: Severe dilatation. RIGHT VENTRICLE: Normal chamber size. Normal right ventricular systolic function. TRICUSPID VALVE: Normal mobility and thickness. No stenosis with mild regurgitation. Doppler studies reveal mildly (35-45) elevated right sided pressures. RVSP 39 mmHg MITRAL VALVE: Normal mobility and thickness. No evidence of mitral valve stenosis. There is no mitral annular calcification. Moderate mitral regurgitation. AORTIC VALVE: Normal trileaflet appearance. Mildly calcified aortic valve with diminished mobility. Doppler velocity suggests mild aortic valve stenosis. Mild aortic regurgitation. AORTIC ROOT: Normal diameter and appearance. Ascending aorta is normal in size. PULMONIC VALVE: Normal thickness and mobility. Normal with Trivial regurgitation. PERICARDIUM: Anterior free space; trivial effusion versus fat pad. IVC: IVC is normal in size, does not collapse. CONCLUSION: 1. Global left ventricular systolic function is difficult to assess but appears preserved; visually estimated ejection fraction is 55% 2. Normal right ventricular size and systolic function 3. Biatrial dilatation 4. Mild tricuspid regurgitation 5. Mildly elevated right ventricular systolic pressure; RVSP 39 mmHg 6. Mild aortic valve stenosis; mild aortic valve regurgitation 7. Anterior free space; trivial effusion versus fat pad Adult Echocardiography Procedure Report Left Ventricle LVEDD (3.7 - 5.6 cm): 4.98 cm LVESD (2.2 - 4.0 cm): 3.93 cm LVIVS thickness (0.6 - 1.2 cm): 0.84 cm LVPW thickness (0.5 - 1.0 cm): 0.89 cm LVOT Max Gradient: 2.16 mm[Hg] LVOT Area (cm2): 0.73 m/s Peak Velocity (LVOT): 0.73 m/s Mean Velocity (LVOT): 0.51 m/s LVOT Diameter 2.00 cm Left Atrium LA Volume Index (2D A2C): 55.42 ml/m2 Left Atrium Systolic Dimension: 3.80 cm Mitral Valve Mitral Valve E-Wave Peak Velocity: 1.17 m/s Right Ventricle Aorta AO Root Diam: 2.78 cm Ascending Ao Diam: 3.09 cm Aortic Valve AoV Area (Peak Mao): 1.07 cm2, 1.07 cm2 AoV Area (VTI): 1.09 cm2, 1.09 cm2 Peak Velocity(Antegrade Flow): 2.14 m/s Peak Gradient(Antegrade Flow): 18.23 mm[Hg] Mean Velocity(Antegrade Flow): 1.58 m/s Mean Gradient(Antegrade Flow): 10.90 mm[Hg] Velocity Time Integral: 48.36 cm Tricuspid Valve Peak Velocity (Regurgitant Flow): 2.20 m/s, 2.21 m/s, 3.02 m/s, 3.47 m/s Pulmonic Valve Peak Velocity: 0.81 m/s Peak Gradient: 2.49 mm[Hg], 3.45 mm[Hg], 2.11 mm[Hg] Right Atrium Right Atrium Systolic Pressure: 70.91 ml, 70.91 ml Dictated by: Mar Gregory M.D. on 11/29/2024 at 14:31 Approved by: Mar Gregory M.D. on 11/29/2024 at 14:36
[2024-11-29 07:38] LABS: Glucometer 116 mg/dL (74-106)
--- NOTE | 2024-11-29 08:32 | CM.NOTE ---
Rounds made with Dr. Delaney, pt states pain pain is better to foot. PT and OT will evaluate pt today for discharge planning. Pt possible discharge this afternoon.
[2024-11-29] MEDS: PREDNISONE 20 MG TABLET 50 MG PO (08:37)
[2024-11-29] MEDS: LIOTHYRONINE SODIUM 5 MCG TABLET PO ×2 (08:37→21:02)
[2024-11-29] MEDS: METOPROLOL TARTRATE 100 MG TABLET PO ×2 (08:38→21:03)
[2024-11-29] MEDS: ISOSORBIDE MONONITRATE 30 MG TAB.ER.24H PO (08:38)
[2024-11-29] MEDS: ALLOPURINOL 300 MG TABLET PO (08:38)
[2024-11-29] MEDS: GEMFIBROZIL 600 MG TABLET PO ×2 (08:39→21:03)
[2024-11-29] MEDS: BUPROPION HCL 150 MG SR TABLET 12H PO ×2 (08:39→21:02)
[2024-11-29] MEDS: APIXABAN 5 MG TABLET PO ×2 (08:39→21:02)
[2024-11-29] MEDS: LEVOTHYROXINE SODIUM 75 MCG TABLET 150 MCG PO (08:44)
--- NOTE | 2024-11-29 08:47 | PM.DS1 ---
DS: Providers Provider Date of admission: 11/28/24 04:18 Primary care physician: AZRA LAGUNA Consults: 11/28/24 11:23 Occupational Therapy Eval and Treat Routine Reason for consultation: Weakness Has provider been notified: No Physical Therapy Eval and Treat Routine Reason for consultation: Weakness Has provider been notified: No DS: Diagnosis Discharge Diagnosis (1) Atrial fibrillation with RVR: (2) Rhabdomyolysis: Qualifiers: Rhabdomyolysis type: non-traumatic Qualified Code(s): M62.82 - Rhabdomyolysis (3) Gout flare: Qualifiers: Gout etiology: idiopathic Gout site: foot Laterality: right Qualified Code(s): M10.071 - Idiopathic gout, right ankle and foot (4) Acute UTI (urinary tract infection): (5) Diabetes mellitus: Qualifiers: Diabetes mellitus type: type 2 Diabetes mellitus mcc insulin use: without mcc use Diabetes mellitus complication status: with kidney complications Diabetes mellitus complication detail: with chronic kidney disease Chronic kidney disease stage: stage 3 (moderate) Chronic kidney disease stage 3 subtype: stage 3a (GFR 45-59) Qualified Code(s): E11.22 - Type 2 diabetes mellitus with diabetic chronic kidney disease; N18.31 - Chronic kidney disease, stage 3a (6) Benign essential hypertension: (7) Chronic heart failure with preserved ejection fraction (HFpEF): (8) Hypothyroidism (acquired): (9) Interstitial lung disease: (10) CAD (coronary artery disease): Qualifiers: Coronary Disease-Associated Artery/Lesion type: [place] artery [place] vs. transplanted heart: [place] heart Associated angina: without angina Qualified Code(s): I25.10 - Atherosclerotic heart disease of [place] coronary artery without angina pectoris (11) CKD stage 3a, GFR 45-59 ml/min: Plan (1) Atrial fibrillation with RVR: (2) Rhabdomyolysis: Qualifiers: Rhabdomyolysis type: non-traumatic Qualified Code(s): M62.82 - Rhabdomyolysis (3) Gout flare: Qualifiers: Gout site: foot Gout etiology: idiopathic Laterality: right Qualified Code(s): M10.071 - Idiopathic gout, right ankle and foot (4) Acute UTI (urinary tract infection): (5) Diabetes mellitus: Qualifiers: Diabetes mellitus type: type 2 Diabetes mellitus mcc insulin use: without mcc use Diabetes mellitus complication status: with kidney complications Diabetes mellitus complication detail: with chronic kidney disease Chronic kidney disease stage: stage 3 (moderate) Chronic kidney disease stage 3 subtype: stage 3a (GFR 45-59) Qualified Code(s): E11.22 - Type 2 diabetes mellitus with diabetic chronic kidney disease; N18.31 - Chronic kidney disease, stage 3a (6) Benign essential hypertension: (7) Chronic heart failure with preserved ejection fraction (HFpEF): (8) Hypothyroidism (acquired): (9) Interstitial lung disease: (10) CAD (coronary artery disease): Qualifiers: Coronary Disease-Associated Artery/Lesion type: [place] artery [place] vs. transplanted heart: [place] heart Associated angina: without angina Qualified Code(s): I25.10 - Atherosclerotic heart disease of [place] coronary artery without angina pectoris (11) CKD stage 3a, GFR 45-59 ml/min: DS: Summary Time Spent with Patient Time attestation: Total time spent providing and/or coordinating discharge services: Exam Constitutional Vital Signs, click to edit/add: Last Vital Signs Temp 97.6 F 11/29/24 07:50 Pulse 79 11/29/24 08:00 Resp 16 11/29/24 08:00 BP 116/76 11/29/24 07:50 Pulse Ox 96 11/29/24 07:50 O2 Del Method Room Air 11/29/24 07:50 DS: Data Data Completed and Pending Labs on day of discharge: Labs from last 24 hours 11/29/24 11/29/24 11/28/24 07:36 05:58 20:36 WBC 9.9 RBC 3.67 L Hgb 10.1 L Hct 32.3 L MCV 88.0 MCH 27.5 MCHC 31.3 RDW 16.2 H Plt Count 175 MPV 11.8 Neut % (Auto) 76.7 H Lymph % (Auto) 17.0 L [place] % (Auto) 5.4 Eos % (Auto) 0.5 L Baso % (Auto) 0.1 L Neut # (Auto) 7.6 H Lymph # (Auto) 1.7 [place] # (Auto) 0.5 Eos # (Auto) 0.1 Baso # (Auto) 0.0 Abs Immat Gran (auto) 0.03 Imm/Tot Granulo (auto) 0.3 Sodium 146 H Potassium 4.0 Chloride 111 H Carbon Dioxide 25.6 Anion Gap 13.4 BUN 19.0 H Creatinine 0.89 Est GFR ( Amer) >60 Est GFR (Non-Af Amer) >60 BUN/Creatinine Ratio 21.3 Glucose 108 H Calcium 8.9 Total Creatine Kinase 129 Myoglobin 68 POC Glucose 116 H 260 H 11/28/24 11/28/24 16:01 11:46 WBC RBC Hgb Hct MCV MCH MCHC RDW Plt Count MPV Neut % (Auto) Lymph % (Auto) [place] % (Auto) Eos % (Auto) Baso % (Auto) Neut # (Auto) Lymph # (Auto) [place] # (Auto) Eos # (Auto) Baso # (Auto) Abs Immat Gran (auto) Imm/Tot Granulo (auto) Sodium Potassium Chloride Carbon Dioxide Anion Gap BUN Creatinine Est GFR ( Amer) Est GFR (Non-Af Amer) BUN/Creatinine Ratio Glucose Calcium Total Creatine Kinase Myoglobin POC Glucose 201 H 187 H Discharge Plan Discharge Discharge Medications: No Action bupropion HCl 150 mg tablet sustained-release 12 hr 150 mg PO Q12H atorvastatin 10 mg tablet 10 mg PO DAILY isosorbide mononitrate 30 mg tablet extended release 24 hr 30 mg PO DAILY allopurinol 100 mg tablet 100 mg PO DAILY gemfibrozil 600 mg tablet 600 mg PO BID metformin 1,000 mg tablet 1,000 mg PO BID metoprolol tartrate 50 mg tablet 50 mg PO Q12H diltiazem HCl 120 mg capsule,extended release 24hr 120 mg PO Q12H furosemide 20 mg tablet 20 mg PO DAILY albuterol sulfate 90 mcg/actuation HFA aerosol inhaler 2 inh INHALATION Q6H PRN (Reason: shortness of breath or wheezing) Eliquis 5 mg tablet 5 mg PO BID liothyronine 5 mcg tablet 5 mcg PO BID levothyroxine [Unithroid] 300 mcg tablet 150 mcg PO DAILY Print Language: [place]
--- OUTSIDE RECORDS SUMMARY | 2024-11-29 08:50 | XMS_ITS | CCD ---
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 Role Phone NIRU CARTER Admitting Unavailab NIRU Sage Attending Unavailab yajaira NO, PHYSICIAN Primary Care Unavailable Aashish Laguna Primary Care Provider Aashish Laguna Primary Care Provider [phone] Aashish Laguna Primary Care Provider Aashish Laguna MD Primary Care Provider [phone] Aashish Laguna MD Primary Care Provider [phone] AASHISH LAGUNA Primary Care Physician [phone] Aashish Laguna MD Primary Care Provider ARAMESNURA PACHECO S Referring Unavailable AASHISH LAGUNA [...] NEVILLE Myers Consulting Unavailabl e PAT, DR KEVNI Sandhu Consulting Unavailable HEMEYER ., DR OQUENDO [...] Care Provider DO Angel Russ Attending Provider [phone] Aashish Laguna MD Unavailable [phone] Aashish Laguna MD Primary Care Provider [phone] Niru Carter MD Unavailable Aashish Laguna MD Unavailable Aashish [...] Unavailable Aashish Laguna MD Primary Care Provider Angel Russ DO Attending Provider Abdoulaye Brothers MD Attending Provider Abdoulaye Brothers Admitting Unavailable Abdoulaye Brothers Attending Unavailable Angel Russ Admitting Unavailable Aashish Laguna Primary Care Unavailable Angel Russ Attending Unavailable Allergies Allergy Classification Reported Allergen(s) Allergy Type Date of Onset Reaction(s) Facility (20 sources) Lisinopril; Translations: [Unknown] Drug Allergy 8 Swelling, Swelling (finding) [facility] Repository (15 sources) Penicillins; Translations: [penicillins] Propensity to adverse reactions to drug 7 Rash, Unknown (qualifier value) [place], [place] (13 sources) Sulfanilamide Drug Allergy 7 Other (See Comments) [place] (20 sources) Amino Acids Drug Allergy 2 [facility] (1 source) Sulfonamides (Antibiotic); Translations: [sulfa drugs] Drug allergy Unknown (qualifier value) [facility] (1 source) Sulfonamides (Antibiotic) Drug allergy (disorder) 7 [facility] Repository (18 sources) Amoxicillin Drug Allergy 3 [facility] Work Phone: (18 sources) Penicillin G Drug Allergy 3 Rash [facility] Healthcare (18 sources) Sulfanilamide Allergy to substance 3 [facility] Healthcare Medications Current Medications Medication Drug Class(es) Dates Sig (Normalized) Sig (Original) [id number] actuat albuterol 0.09 mg/actuat metered dose [...] Start: 05-07-2019 take 2 tablets by mo cox branson once daily amLODIPine (NORVASC) 5 MG tablet Take 2 tablets by mouth daily 60 tablet 11 05/07/2019 Active take 1 tablet by meliton twice daily amLODIPine (NORVASC) 5 MG tablet [...] BY MOUTH TWICE A DAY 60 tablet 03/21/2022 Active Start: 03-29-2021 End: 02-12-2022 take 1 tablet by mouth twice daily ELIQUIS 5 MG TABS tablet TAKE 1 TABLET BY MOUTH 2 TIMES DAILY 60 tablet 09/27/2021 Active Ascorbic Acid (6 sources) Vitamin [...] Start: 07-20-2018 take 1 tablet by meliton once daily atorvastatin (LIPITOR) 10 MG tablet TAKE ONE TABLET BY MOUTH ONCE DAILY 30 tablet 11 08/07/2020 Active B complex with C 20-folic acid (b uwqwgnq-R-jxknu acid) 1 mg cap (2 sources) take 1 capsule by mouth twice daily B complex with C 20-folic acid (b pqqgrgj-P-qyfna acid) 1 mg cap Take 1 capsule [...] Chelated Iron PO (1 source) Start: 07-27-20 19 Chelated Iron PO Chelated Iron PO Start Date: 07/27/19 Status: Ordered cholecalciferol 0.05 mg oral capsule (9 sources) Vitamin D Cholecalciferol (VITAMIN D3) 50 MCG (1999 UT) CAPS Take by mouth 0 Active 24 hr dilTIAZem hydrochloride 120 mg extended release oral capsule (20 sources) Calcium Channel Dimitry Start: 01-09-20 take 1 capsule by mouth twice daily dilTIAZem (CARDIZEM CD) 120 MG extended release capsule Take 1 capsule by mouth 2 times daily 60 capsule 01/08/2022 Active Start: 05-01-2021 take 1 capsule by mo ut once daily dilTIAZem (CARDIZEM CD) 120 MG [...] hr tablet Indications: 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 DUARTE; I AND [employer] 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 30 MG tablet TAKE ONE TABLET [...] BP is less than 90 mmHG, notify Seed Potato Arranger, place patient in Trendelenberg, and give 0.9% NaCl bolus, Starting Fri05/19/19 at 0906, For 1 dose Start: 05-19-2019 [...] of urinary tract (1 source) Kidney stone 11-19-2019 Episodic Cardiac dysrhythmias (20 sources) Atrial fibrillation; [...] Coronary arteriosclerosis; Translations: [Atherosclerotic heart disease of nooksack coronary artery without angina pectoris] Onset: 3 [...] 05-14-2023 Chronic Other aftercare (1 source) 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; Translations: [OTH CARE PROGRAM RESIDENT CURRENT DRUG THERAPY] Onset: 3 Episodic Other aftercare (1 source) [facility] (current) use of oral hypoglycemic drugs; Translations: [SKILLED NURSING USE ORAL HYPOGLYCEMIC DX] Onset: 3 Episodic [...] Onset: 12-02-2023 12-02-2023 Other aftercare (1 source) 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 (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; Translations: [CARE PROGRAM RESIDENT CURRNT USE ANTICOAGULANTS] Onset: 09-06-2022 Episodic Other [...] n 11-25-2024 MM screening mammo BI w/CAD [facility] [address] [place] [address] Mammography Report Signed Patient: Patricia Blake MR#: [id number] : 1950 Acct:[id number] Age/Sex: 74 / F Adm Date: 11/25/24 Loc: [place] Room: Type: [facility] Attending Dr: Angel Russ DO Ordering Provider: Angel Russ DO Date of Service: 11/25/24 Procedure(s): MM screening mammo BI w/CAD Accession Number(s): ([id number]) MM/MM screening mammo BI w/CAD: SCREENING Copies [...] Savi Prather M.D.11/25/2024 3:02 PM Dictation Location: [facility] Dictated By: Savi Prather MD 11/25/24 1459 Signed By: 11/25/[address] [facility] Mammography reportOrdered By : Savi Prather on 11-25-2024 Diagnostic imaging study [facility] [address] [place] [address] Mammography Report Signed Patient: Patricia Blake MR#: [id number] : 1950 Acct:[id number] Age/Sex: 74 / F Adm Date: 5 Loc: [place] Room: Type: [facility] Attending Dr: Angel Russ DO Ordering Provider: Angel Russ DO Date of Service: 11/25/24 Procedure(s): MM screening mammo BI w/CAD Accession Number(s): ([id number]) MM/MM screening mammo BI w/CAD: SCREENING Copies [...] Savi Prather M.D.11/25/2024 3:02 PM Dictation Location: [facility] Dictated By: Savi Prather MD 11/25/24 1450 Signed By: 11/25/24 1508 [facility] Work Phone: T3 REVERSE, LC/MS/MSon 10-23 T3 REVERSE, LC/MS/MS 17 ng/dL Normal 8-25 [facility] Comment on above: Order Comment: FASTI NG:NO FASTING: NO Result Comment: This test was developed and its analytical performance characteristics have been determined by [employer] [place], [place]. It has not been cleared or approved by the U.S. Food and Drug Administration. This assay has been validated pursuant to the CLIA regulations and is used for clinical purposes. Performed By: #### 8 66, 859, 049, [id number] #### [facility] [place] [address] [place]eller: Jaylon Bagley MD #### [id number] #### [facility]/[place] [id number] [facility] [place], [place] Tree Feller: Gian Collins M.D.,PhD T3, FREEon 10-23-2024 Free T3 [Mass/Vol] 3.2 pg/mL Normal 2.3-4.2 [facility] Comment on above: Performed By: #### 8 66 859, 733, 21781 #### [facility] [address], [address] [place] [address] [place]: Jaylon Bagley MD #### [id number] #### [facility]/[place] [id number] [facility] [place], [place] Tree Feller: Gian Collins M.D.,PhD T3, TOTALon 10-23-2024 T3, TOTAL 131 ng/dL Normal 76-181 [facility] Comment on above: Performed By: #### 8 66, 859, 558, 11596 #### [facility] [address], [address] [place] [address] [place]: Jaylon Bagley MD #### [id number] #### [facility]/[place] [id number] [facility] [address] [place]: Gian Collins M.D.,PhD T4, FREEon 10-23-2024 Free T4 [Mass/Vol] 1.2 ng/dL Normal 0.8-1.8 [facility] Comment on above: Performed By: #### 8 66, 859, 899, 47767 #### [facility] [address], [address] [place] [address] [place]: Jaylon Bagley MD #### [id number] #### [facility]/[place] [id number] [facility] [place] Tree [place]eller: Gian Collins M.D.,PhD TSHon 10-23-2024 TSH Qn 1.47 m[IU]/L Normal 0.40-4.50 [facility] Comment on above: Performed By: #### 8 66, 859, 899, 61403 #### [facility] [address], [address] [place] [address] [place]: Jaylon Bagley MD #### [id number] #### [facility]/[place] [id number] [facility] [address] [place]: Gian Collins M.D.,PhD T3, TOTAL (TRIIODOTHYRONINE) on 11-05-2022 T3, TOTAL 174 ng/dL Normal 71-180 [facility] Comment on above: Performed By: #### C BC #### [facility] [address] [place] [address] Dr. Sami William CBC AUTO DIFFon 10-18-2022 BASO # 0.0 103/ul Normal 0.0-0.1 [facility] Comment on above: Performed By: #### C BC #### [facility] [address] [place] [address] Dr. Sami William Basophils/100 WBC (Bld) 0.3 % Normal 0.2-2.0 [facility] Comment on above: Performed By: #### C BC #### [facility] [address] [place] [address] Dr. Sami William EO # 0.1 103/ul Normal 0.0-0.7 [facility] Comment on above: Performed By: #### C BC #### [facility] [address] [place] [address] Dr. Sami William Eosinophils/100 WBC (Bld) 1.2 % Normal 0.9-7.0 [facility] Comment on above: Performed By: #### C BC #### [facility] [address] [place] [address] Dr. Sami William Erythrocyte distribution width (RBC) [Ratio] 15.7 % Critically high 11.0-15.0 [facility] Comment on above: Performed By: #### C BC #### [facility] [address] [place] [address] Dr. Sami William Hematocrit (Bld) [Volume fraction] 35.9 % Critically low 36.0-48.0 [facility] Comment on above: Performed By: #### C BC #### [facility] [address] [place] [address] Dr. Sami William Hemoglobin (Bld) [Mass/Vol] 11.1 g/dL Critically low 12.0-16.0 [facility] Comment on above: Performed By: #### C BC #### [facility] [address] [place] [address] Dr. Sami William IG # 0.03 10e3/ul Normal 0.00-0.03 [facility] Comment on above: Performed By: #### C BC #### [facility] [address] [place] [address] Dr. Sami William IG % 0.4 % Normal 0.0-0.5 [facility] Comment on above: Performed By: #### C BC #### [facility] [address] [place] [address] [address] Sami William LYMPH # 1.5 103/ul Normal 1.2-3.8 [facility] Comment on above: Performed By: #### C BC #### [facility] [address] [place] [address] [address] Sami William Lymphocytes/100 WBC (Bld) 19.2 % Critically low 20.5-60.0 [facility] Comment on above: Performed By: #### C BC #### [facility] [address] [place] [address] Dr. Sami William MANUAL DIFF REQ NO Normal [facility] Comment on above: Performed By: #### C BC #### [facility] [address] [place] [address] Dr. Sami William MCH (RBC) [Entitic mass] 26.9 pg Normal 26.7-34.0 [facility] Comment on above: Performed By: #### C BC #### [facility] [address] [place] [address] Dr. Sami William MCHC (RBC) [Mass/Vol] 30.9 g/dL Normal 29.9-35.2 [facility] Comment on above: Performed By: #### C BC #### [facility] [address] [place] [address] Dr. Sami William MCV (RBC) [Entitic vol] 87.1 fL Normal 81.0-99.0 [facility] Comment on above: Performed By: #### C BC #### [facility] [address] [place] [address] Dr. Sami William MONO # 0.5 103/ul Normal 0.3-0.8 [facility] Comment on above: Performed By: #### C BC #### [facility] [address] [place] [address] Dr. Sami William Monocytes/100 WBC (Bld) 7.0 % Normal 1.7-12.0 [facility] Comment on above: Performed By: #### C BC #### [facility] [address] [place] [address] [address] Sami William NEUT # 5.6 103/ul Normal 1.4-6.5 [facility] Comment on above: Performed By: #### C BC #### [facility] [address] [address] [address] Sami William Neutrophils/100 WBC (Bld) 71.9 % Normal 43.0-75.0 [facility] Comment on above: Performed By: #### C BC #### [facility] [address] [address] [address] Sami William Platelet mean volume (Bld) [Entitic vol] 12.1 fL Normal 9.5-13.5 [facility] Comment on above: Performed By: #### C BC #### [facility] [address] [address] [address] Sami William PLT 213 103/ul Normal 150-450 [facility] Comment on above: Performed By: #### C BC #### [facility] [address] [place] [address] Dr. Sami William RBC 4.12 106/ul Critically low 4.20-5.40 [facility] Comment on above: Performed By: #### C BC #### [facility] [address] [address] [address] Sami William WBC 7.7 103/ul Normal 4.0-11.0 [facility] Comment on above: Performed By: #### C BC #### [facility] [address] [address] [address] Sami William PROF CHEM 8 (BAS METB)on Anion gap [Moles/Vol] 15.5 mmol/L Normal [facility] Comment on above: Performed By: #### T KINA, FT3 #### [facility] [address] [place] [address] Dr. Sami William Calcium [Mass/Vol] 10.0 mg/dL Normal 8.5-10.1 [facility] Comment on above: Performed By: #### T KINA, FT3 #### [facility] [address] [address] [address] Sami William Chloride [Moles/Vol] 105 mmol/L Normal 98-107 [facility] Comment on above: Performed By: #### T SH, FT3 #### [facility] [address] [address] [address] Sami William CO2 [Moles/Vol] 28.1 mmol/L Normal 21.0-32.0 [facility] Comment on above: Performed By: #### T SH, FT3 #### [facility] [address] [address] [address] Sami William Creatinine [Mass/Vol] 0.84 mg/dL Normal 0.55-1.02 [facility] Comment on above: Performed By: #### T SH, FT3 #### [facility] [address] [place] [address] Dr. Sami William EGFR-AF LAO >60 Normal >=60 [facility] Comment on above: Performed By: #### T SH, FT3 #### [facility] [address] [address] [address] Sami William EGFR-NON AF LAO >60 Normal >=60 [facility] Comment on above: Performed By: #### T , FT3 #### [facility] [address] [place] [address] Dr. Sami William Glucose [Mass/Vol] 114 mg/dL Critically high 74-106 [facility] Comment on above: Performed By: #### T , FT3 #### [facility] [address] [address] [address] Sami William Potassium [Moles/Vol] 3.6 mmol/L Normal 3.5-5.1 [facility] Comment on above: Performed By: #### T SH, FT3 #### [facility] [address] [address] [address] Sami William Sodium [Moles/Vol] 145 mmol/L Normal 136-145 [facility] Comment on above: Performed By: #### T SH, FT3 #### [facility] [address] [address] [address] Sami William Urea nitrogen [Mass/Vol] 21.0 mg/dL Critically high 7.0-18.0 [facility] Comment on above: Performed By: #### T SH, FT3 #### [facility] [address] [address] [address] Sami William Urea nitrogen/Creatinine [Mass ratio] 25.0 mg/mg Normal [facility] Comment on above: Performed By: #### T SH, FT3 #### [facility] [address] [address] [address] Sami William SED RATE WESTERGRENon 2022 SED RATE 100 mm/hr Critically high <=30 [facility] Comment on above: Performed By: #### C BC #### [facility] [address] [address] [address] Sami William URIC ACID SERUMon 10-18-2022 Urate [Mass/Vol] 9.6 mg/dL Critically high 2.6-6.0 [facility] Comment on above: Performed By: #### T , FT3 #### [facility] [address] [address] [address] Sami William CARDIAC STRESS TESTon 2022 [place] [address] CARDIAC STRESS TEST PATIENT NAME: PATRICIA BLAKE : 1950 MED REC NO: [id number] ROOM: ACCOUNT NO: [id number] ADMIT DATE: 09/17/2022 PROVIDER: Niru Carter MD [...] to follow. NIRU CARTER MD GV/[id number]_T Doc#: [id number] CC: Aashish Laguna [facility] CARDIAC STRESS TEST [place] [id number] CARDIAC STRESS TEST PATIENT NAME: PATRICIA BLAKE : 1950 MED REC NO: [id number] ROOM: ACCOUNT NO: [id number] ADMIT DATE: 09/17/2022 PROVIDER: Kevin Dangelo DATE [...] for significant coronary artery disease. KEVIN DANGELO EARL/CHINAA_EDIT Doc#: Unknown CC: Aashish Carter MD [facility] Stress test, lexiscanon 09-08 Kevin Dangelo MD - 09/18/2022 10:17 AM EST [place] [id number] CARDIAC STRESS TEST PATIENT NAME: PATRICIA BLAKE : 1950 MED REC NO: [id number] ROOM: ACCOUNT NO: [id number] ADMIT DATE: 09/17/2022 PROVIDER: Kevin Dangelo DATE [...] EARL/IGNACIO_RESHMAIT Doc#: Unknown CC: Aashish Carter MD [employer] Phone: Stress test, lexiscanOrdered By: Kevin Dangelo on 09-18-2022 [employer] Phone: [place] MYOCARDIAL SPECT REST EXE RCISE OR RXon 09-17-2022 NM MYOCARDIAL SPECT REST EXERCISE OR RX Radiology exam is complete. No Radiologist dictation. Please follow up with ordering provider. Final result Normal [facility] No Panel Informationon 09-17 Radiology exam is complete. No Radiologist dictation. Please follow up with ordering provider. [facility] RIS CONSOLIDATED CULTURE URINEon 09-08-2022 CULTURE [...] F Trimethoprim/Sulfam ethoxazole <=20 S F Normal [facility] Comment on above: Performed By: #### C BC #### [facility] [address] [place] [address] Dr. Sami William BNPon 09-05-2022 Natriuretic peptide B (Bld) [Mass/Vol] 1013.0 pg/mL Critically high <=900.0 [facility] Comment on above: Performed By: #### H STROPN, LIPA, BNP, CMP #### [facility] [address] [place] [address] Dr. Sami William CBC AUTO DIFFon 09-05-2022 BASO # 0.0 103/ul Normal 0.0-0.1 [facility] Comment on above: Performed By: #### T SH, FT3 #### [facility] [address] [place] [address] Dr. Sami William Basophils/100 WBC (Bld) 0.3 % Normal 0.2-2.0 [facility] Comment on above: Performed By: #### T SH, FT3 #### [facility] [address] [place] [address] Dr. Sami William EO # 0.1 103/ul Normal 0.0-0.7 [facility] Comment on above: Performed By: #### T SH, FT3 #### [facility] [address] [place] [address] Dr. Sami William Eosinophils/100 WBC (Bld) 1.1 % Normal 0.9-7.0 [facility] Comment on above: Performed By: #### T KINA, FT3 #### [facility] [address] [place] [address] Dr. Sami William Erythrocyte distribution width (RBC) [Ratio] 15.7 % Critically high 11.0-15.0 [facility] Comment on above: Performed By: #### T SH, FT3 #### [facility] [address] [place] [address] Dr. Sami William Hematocrit (Bld) [Volume fraction] 35.5 % Critically low 36.0-48.0 [facility] Comment on above: Performed By: #### T KINA, FT3 #### [facility] [address] [place] [address] Dr. Sami William Hemoglobin (Bld) [Mass/Vol] 11.0 g/dL Critically low 12.0-16.0 [facility] Comment on above: Performed By: #### T SH, FT3 #### [facility] [address] [place] [address] Dr. Sami William IG # 0.04 10e3/ul Critically high 0.00-0.03 [facility] Comment on above: Performed By: #### T KINA, FT3 #### [facility] [address] [place] [address] Dr. Sami iWlliam IG % 0.5 % Normal 0.0-0.5 [facility] Comment on above: Performed By: #### T SH, FT3 #### [facility] [address] [place] [address] Dr. Sami William LYMPH # 2.0 103/ul Normal 1.2-3.8 [facility] Comment on above: Performed By: #### T SH, FT3 #### [facility] [address] [place] [address] Dr. Sami William Lymphocytes/100 WBC (Bld) 27.7 % Normal 20.5-60.0 [facility] Comment on above: Performed By: #### T , FT3 #### [facility] [address] [place] [address] Dr. Sami William MANUAL DIFF REQ NO Normal [facility] Comment on above: Performed By: #### T SH, FT3 #### [facility] [address] [place] [address] Dr. Sami William MCH (RBC) [Entitic mass] 27.0 pg Normal 26.7-34.0 [facility] Comment on above: Performed By: #### T , FT3 #### [facility] [address] [place] [address] Dr. Sami William MCHC (RBC) [Mass/Vol] 31.0 g/dL Normal 29.9-35.2 [facility] Comment on above: Performed By: #### T , FT3 #### [facility] [address] [place] [address] Dr. Sami William MCV (RBC) [Entitic vol] 87.2 fL Normal 81.0-99.0 [facility] Comment on above: Performed By: #### T , FT3 #### [facility] [address] [place] [address] Dr. Sami William MONO # 0.4 103/ul Normal 0.3-0.8 [facility] Comment on above: Performed By: #### T , FT3 #### [facility] [address] [place] [address] Dr. Sami William Monocytes/100 WBC (Bld) 5.3 % Normal 1.7-12.0 [facility] Comment on above: Performed By: #### T , FT3 #### [facility] [address] [place] [address] Dr. Sami William NEUT # 4.7 103/ul Normal 1.4-6.5 [facility] Comment on above: Performed By: #### T , FT3 #### [facility] [address] [place] [address] Dr. Sami William Neutrophils/100 WBC (Bld) 65.1 % Normal 43.0-75.0 [facility] Comment on above: Performed By: #### T KINA, FT3 #### [facility] [address] [address] [address] Sami William Platelet mean volume (Bld) [Entitic vol] 13.1 fL Normal 9.5-13.5 [facility] Comment on above: Performed By: #### T KINA, FT3 #### [facility] [address] [address] [address] Sami William PLT 211 103/ul Normal 150-450 [facility] Comment on above: Performed By: #### T KINA, FT3 #### [facility] [address] [place] [address] Dr. Sami William RBC 4.07 106/ul Critically low 4.20-5.40 [facility] Comment on above: Performed By: #### T KINA, FT3 #### [facility] [address] [place] [address] Dr. Sami William WBC 7.3 103/ul Normal 4.0-11.0 [facility] Comment on above: Performed By: #### T KINA, FT3 #### [facility] [address] [place] [address] Dr. Sami William ER URINE PROFILEon 2 Bilirubin Ql (U) Negative Normal NEGATIVE [facility] Comment on above: Performed By: #### C BC #### [facility] [address] [place] [address] Dr. Sami William Clarity (U) CLEAR Normal CLEAR [facility] Comment on above: Performed By: #### C BC #### [facility] [address] [place] [address] Dr. Sami William Color (U) LT. YELLOW Normal YELLOW [facility] Comment on above: Performed By: #### C BC #### [facility] [address] [place] [address] Dr. Sami William ERUAMBROSED A micrscopic examination will be performed if indicated. Normal [facility] Comment on above: Performed By: #### C BC #### [facility] [address] [address] [address] Sami William Glucose Ql (U) Negative Normal NEGATIVE [facility] Comment on above: Performed By: #### C BC #### [facility] [address] [place] [address] Dr. Sami William Hemoglobin Ql (U) Negative Normal NEGATIVE [facility] Comment on above: Performed By: #### C BC #### [facility] [address] [place] [address] Dr. Sami William Ketones Ql (U) Negative Normal NEGATIVE [facility] Comment on above: Performed By: #### C BC #### [facility] [address] [place] [address] Dr. Sami William LEUKOCYTES MODERATE Abnormal NEGATIVE [facility] Comment on above: Performed By: #### C BC #### [facility] [address] [place] [address] Dr. Sami William Nitrite Ql (U) Positive Abnormal NEGATIVE [facility] Comment on above: Performed By: #### C BC #### [facility] [address] [place] [address] Dr. Sami William pH (U) 6.5 [pH] Normal 5-9 [facility] Comment on above: Performed By: #### C BC #### [facility] [address] [place] [address] Dr. Sami William SPEC GRAVITY 1.010 Normal 1.005-<=1.02 5 [facility] Comment on above: Performed By: #### C BC #### [facility] [address] [place] [address] Dr. Sami William UA PROTEIN Negative Normal NEGATIVE/ TRACE [facility] Comment on above: Performed By: #### C BC #### [facility] [address] [place] [address] Dr. Sami William UR MICRO IND INDICATED Normal [facility] Comment on above: Performed By: #### C BC #### [facility] [address] [place] [address] Dr. Sami William Urobilinogen Qn (U) 0.2 {Sunni'U}/dL Normal 0.2 - 1. 0 [facility] Comment on above: Performed By: #### C BC #### [facility] [address] [place] [address] Dr. Sami William LIPASEon 09-05-2022 Lipase [Catalytic activity/Vol] 121.0 U/L Normal 73.0-393.0 [facility] Comment on above: Performed By: #### H STROPN, LIPA, BNP, CMP #### [facility] [address] [address] [address] Sami William PROF 14(COMP METB)on Albumin [Mass/Vol] 3.7 g/dL Normal 3.4-5.0 [facility] Comment on above: Performed By: #### H STROPN, LIPA, BNP, CMP #### [facility] [address] [place] [address] Dr. Sami William Albumin/Globulin [Mass ratio] 0.9 {ratio} Normal [facility] Comment on above: Performed By: #### H STROPN, LIPA, BNP, CMP #### [facility] [address] [place] [address] Dr. Sami William ALP [Catalytic activity/Vol] 73 U/L Normal 46-116 [facility] Comment on above: Performed By: #### H STROPN, LIPA, BNP, CMP #### [facility] [address] [place] [address] Dr. Sami William ALT [Catalytic activity/Vol] 23 U/L Normal 14-59 [facility] Comment on above: Performed By: #### H STROPN, LIPA, BNP, CMP #### [facility] [address] [address] [address] Sami William Anion gap [Moles/Vol] 16.4 mmol/L Normal [facility] Comment on above: Performed By: #### H STROPN, LIPA, BNP, CMP #### [facility] [address] [address] [address] Sami William AST [Catalytic activity/Vol] 23 U/L Normal 15-37 [facility] Comment on above: Performed By: #### H STROPN, LIPA, BNP, CMP #### [facility] [address] [address] [address] Sami William Bilirubin [Mass/Vol] 0.3 mg/dL Normal 0.2-1.0 [facility] Comment on above: Performed By: #### H STROPN, LIPA, BNP, CMP #### [facility] [address] [address] [address] Sami William Calcium [Mass/Vol] 9.4 mg/dL Normal 8.5-10.1 [facility] Comment on above: Performed By: #### H STROPN, LIPA, BNP, CMP #### [facility] [address] [place] [address] Dr. Sami William Chloride [Moles/Vol] 102 mmol/L Normal 98-107 [facility] Comment on above: Performed By: #### H STROPN, LIPA, BNP, CMP #### [facility] [address] [place] [address] Dr. Sami William CO2 [Moles/Vol] 28.5 mmol/L Normal 21.0-32.0 [facility] Comment on above: Performed By: #### H STROPN, LIPA, BNP, CMP #### [facility] [address] [place] [address] Dr. Sami William Creatinine [Mass/Vol] 1.07 mg/dL Critically high 0.55-1.02 [facility] Comment on above: Performed By: #### H STROPN, LIPA, BNP, CMP #### [facility] [address] [place] [address] Dr. Sami William EGFR-AF LAO >60 Normal >=60 [facility] Comment on above: Performed By: #### H STROPN, LIPA, BNP, CMP #### [facility] [address] [place] [address] Dr. Sami William EGFR-NON AF LAO 50 mL/min/1.73m2 Critically low >=60 [facility] Comment on above: Performed By: #### H STROPN, LIPA, BNP, CMP #### [facility] [address] [address] [address] Sami William Globulin (S) [Mass/Vol] 3.9 g/dL Normal [facility] Comment on above: Performed By: #### H STROPN, LIPA, BNP, CMP #### [facility] [address] [place] [address] Dr. Sami William Glucose [Mass/Vol] 166 mg/dL Critically high 74-106 [facility] Comment on above: Performed By: #### H STROPN, LIPA, BNP, CMP #### [facility] [address] [address] [address] Sami William Potassium [Moles/Vol] 3.9 mmol/L Normal 3.5-5.1 [facility] Comment on above: Performed By: #### H STROPN, LIPA, BNP, CMP #### [facility] [address] [place] [address] Dr. Sami William Protein [Mass/Vol] 7.6 g/dL Normal 6.4-8.2 [facility] Comment on above: Performed By: #### H STROPN, LIPA, BNP, CMP #### [facility] [address] [place] [address] Dr. Sami William Sodium [Moles/Vol] 143 mmol/L Normal 136-145 [facility] Comment on above: Performed By: #### H STROPN, LIPA, BNP, CMP #### [facility] [address] [address] [address] Sami William Urea nitrogen [Mass/Vol] 21.0 mg/dL Critically high 7.0-18.0 [facility] Comment on above: Performed By: #### H STROPN, LIPA, BNP, CMP #### [facility] [address] [place] [address] Dr. Sami William Urea nitrogen/Creatinine [Mass ratio] 19.6 mg/mg Normal [facility] Comment on above: Performed By: #### H STROPN, LIPA, BNP, CMP #### [facility] [address] [address] [address] Sami William PROTIMEon 09-05-2022 INR Coag (PPP) [Relative time] 1.10 {INR} Normal [facility] Comment on above: Performed By: #### T SH, FT3 #### [facility] [address] [address] [address] Sami William INR GUIDELINES SEE BELOW Normal [facility] Comment on above: Result Comment: FANG RED INR: 2.0 - 3.0 CONDITIONS NOT LISTED BELOW 2.5 - 3.5 FOR PROSTHETIC HEART VALVE REPLACEMENT 2.5 - 3.5 RECURRENT THROMBOSIS Performed By: #### T KINA, FT3 #### [facility] [address] [place] [address] Dr. Sami William PT Coag (PPP) [Time] 11.8 s Critically high 9.0-11.6 [facility] Comment on above: Performed By: #### T KINA, FT3 #### [facility] [address] [place] [address] Dr. Sami William PTTon 09-05-2022 aPTT Coag (Bld) [Time] 28.1 s Normal 22.3-36.2 [facility] Comment on above: Performed By: #### T KINA, FT3 #### [facility] [address] [place] [address] Dr. Sami William TROPONIN, HIGH SENSITIVITYon 09-05-2022 HSTROP 10.3 pg/mL Normal 4.0-51.3 [facility] Comment on above: Result Comment: CUT- OFF POINTS HAVE BEEN ESTABLISHED BASED ON THE FOURTH UNIVERSAL DEFINITIONS OF MYOCARDIAL INFARCTION. THE UPPER REFERENCE LIMIT (URL) OF TROPONIN, DEFINED THE 99TH PERCENTILE OF cTnI DISTRIBUTION IN A REFERENCE POPULATION, HAS BEEN CONFIRMED THE DECISION THRESHOLD FOR SD DIAGNOSIS. Performed By: #### H STROPN, LIPA, BNP, CMP #### [facility] [address] [address] [address] Sami William URINE MICROSCOPIC ONLYon BACTERIA LARGE Abnormal NONE SEEN [facility] Comment on above: Performed By: #### C BC #### [facility] [address] [place] [address] Dr. Sami William Bacteria identified Cx Nom (U) INDICATED Normal [facility] Comment on above: Performed By: #### C BC #### [facility] [address] [place] [address] Dr. Sami William CAST NONE SEEN Normal NONE SEEN [facility] Comment on above: Performed By: #### C BC #### [facility] [address] [place] [address] Dr. Sami William Crystals LM Nom (Urine sed) NONE SEEN Normal NONE SEEN [facility] Comment on above: Performed By: #### C BC #### [facility] [address] [place] [address] Dr. Sami William Epithelial cells LM Ql (Urine sed) FEW Abnormal NONE SEEN /RARE [facility] Comment on above: Performed By: #### C BC #### [facility] [address] [place] [address] Dr. Sami William MUCOUS NONE SEEN Normal NONE SEEN [facility] Comment on above: Performed By: #### C BC #### [facility] [address] [place] [address] Dr. Sami William RBC NONE SEEN Abnormal 0-2 [facility] Comment on above: Performed By: #### C BC #### [facility] [address] [place] [address] Dr. Sami William WBC 20-50 Abnormal NONE SEEN [facility] Comment on above: Performed By: #### C BC #### [facility] [address] [place] [address] Dr. Sami William XR CHEST 1 Von [...] OLENA RAMON Date: 2022-09-05 12:54 Normal [facility] CBC AUTO DIFFon 08-29-2022 BASO # 0.0 103/ul Normal 0.0-0.1 [facility] Comment on above: Performed By: #### C BC #### [facility] [address] [address] [address] Sami William Basophils/100 WBC (Bld) 0.4 % Normal 0.2-2.0 [facility] Comment on above: Performed By: #### C BC #### [facility] [address] [place] [address] Dr. Sami William EO # 0.1 103/ul Normal 0.0-0.7 [facility] Comment on above: Performed By: #### C BC #### [facility] [address] [place] [address] Dr. Sami William Eosinophils/100 WBC (Bld) 1.5 % Normal 0.9-7.0 [facility] Comment on above: Performed By: #### C BC #### [facility] [address] [place] [address] Dr. Sami William Erythrocyte distribution width (RBC) [Ratio] 15.8 % Critically high 11.0-15.0 [facility] Comment on above: Performed By: #### C BC #### [facility] [address] [place] [address] Dr. Sami William Hematocrit (Bld) [Volume fraction] 35.8 % Critically low 36.0-48.0 [facility] Comment on above: Performed By: #### C BC #### [facility] [address] [place] [address] Dr. Sami William Hemoglobin (Bld) [Mass/Vol] 10.8 g/dL Critically low 12.0-16.0 [facility] Comment on above: Performed By: #### C BC #### [facility] [address] [place] [address] Dr. Sami William IG # 0.04 10e3/ul Critically high 0.00-0.03 [facility] Comment on above: Performed By: #### C BC #### [facility] [address] [place] [address] Dr. Sami William IG % 0.5 % Normal 0.0-0.5 [facility] Comment on above: Performed By: #### C BC #### [facility] [address] [place] [address] Dr. Sami William LYMPH # 2.0 103/ul Normal 1.2-3.8 [facility] Comment on above: Performed By: #### C BC #### [facility] [address] [place] [address] Dr. Sami William Lymphocytes/100 WBC (Bld) 27.1 % Normal 20.5-60.0 [facility] Comment on above: Performed By: #### C BC #### [facility] [address] [place] [address] Dr. Sami William MANUAL DIFF REQ NO Normal [facility] Comment on above: Performed By: #### C BC #### [facility] [address] [place] [address] Dr. Sami William MCH (RBC) [Entitic mass] 26.7 pg Normal 26.7-34.0 [facility] Comment on above: Performed By: #### C BC #### [facility] [address] [place] [address] Dr. Sami William MCHC (RBC) [Mass/Vol] 30.2 g/dL Normal 29.9-35.2 [facility] Comment on above: Performed By: #### C BC #### [facility] [address] [place] [address] Dr. Sami William MCV (RBC) [Entitic vol] 88.4 fL Normal 81.0-99.0 [facility] Comment on above: Performed By: #### C BC #### [facility] [address] [place] [address] Dr. Sami William MONO # 0.5 103/ul Normal 0.3-0.8 [facility] Comment on above: Performed By: #### C BC #### [facility] [address] [address] [address] Sami William Monocytes/100 WBC (Bld) 6.4 % Normal 1.7-12.0 [facility] Comment on above: Performed By: #### C BC #### [facility] [address] [address] [address] Sami William NEUT # 4.8 103/ul Normal 1.4-6.5 [facility] Comment on above: Performed By: #### C BC #### [facility] [address] [address] [address] Sami William Neutrophils/100 WBC (Bld) 64.1 % Normal 43.0-75.0 [facility] Comment on above: Performed By: #### C BC #### [facility] [address] [place] [address] Dr. Sami William Platelet mean volume (Bld) [Entitic vol] 12.8 fL Normal 9.5-13.5 [facility] Comment on above: Performed By: #### C BC #### [facility] [address] [place] [address] Dr. Sami William PLT 204 103/ul Normal 150-450 [facility] Comment on above: Performed By: #### C BC #### [facility] [address] [place] [address] Dr. Sami William RBC 4.05 106/ul Critically low 4.20-5.40 [facility] Comment on above: Performed By: #### C BC #### [facility] [address] [address] [address] Sami William WBC 7.5 103/ul Normal 4.0-11.0 [facility] Comment on above: Performed By: #### C BC #### [facility] [address] [place] [address] Dr. Sami William FREE T4on 08-29-2022 Free T4 [Mass/Vol] 0.86 ng/dL Normal 0.76-1.46 [facility] Comment on above: Performed By: #### V IRINA, FT4 #### [facility] [address] [place], [place] [address] Dr. Sami William LIPID PROFILEon 08-29-2022 CHOL-HDL RATIO NORM SEE BELOW Normal [facility] Comment on above: Result Comment: 3.3 - 4.4 LOW RISK 4.4 - 7.1 AVERAGE RISK 7.1 - 11.0 MODERATE RISK >11.0 HIGH RISK Performed By: #### T SH, FT3 #### [facility] [address] [address] [address] Sami William Cholesterol [Mass/Vol] 109 mg/dL Normal <=200 [facility] Comment on above: Performed By: #### T SH, FT3 #### [facility] [address] [address] [address] Sami William Cholesterol in HDL [Mass/Vol] 31 mg/dL Critically low 40-60 [facility] Comment on above: Performed By: #### T KINA, FT3 #### [facility] [address] [address] [address] Sami William Cholesterol in LDL [Mass/Vol] 49.0 mg/dL Normal [facility] Comment on above: Performed By: #### T SH, FT3 #### [facility] [address] [address] [address] Sami William Cholesterol.total/Salome sterol in HDL [Mass ratio] 3.5 {ratio} Normal [facility] Comment on above: Performed By: #### T SH, FT3 #### [facility] [address] [address] [address] Sami William HDL NORMAL > or = 60 mg/dl - LOW CARDIOVASCULAR RISK <40 mg/dl - HIGH CARDIOVASCULAR RISK Normal [facility] Comment on above: Performed By: #### T SH, FT3 #### [facility] [address] [address] [address] Sami William LDL CALC NORMAL SEE BELOW Normal [facility] Comment on above: Result Comment: <100 mg/dl OPTIMAL 100 - 129 mg/dl NEAR OR ABOVE OPTIMAL 130 - 159 mg/dl BORDERLINE HIGH 160 - 189 mg/dl HIGH >190 mg/dl VERY HIGH Performed By: #### T SH, FT3 #### [facility] [address] [place] [address] Dr. Sami William Triglyceride [Mass/Vol] 145 mg/dL Normal <=150 [facility] Comment on above: Performed By: #### T SH, FT3 #### [facility] [address] [place] [address] Dr. Sami William VLDL CALC 29.0 mg/dL Normal [facility] Comment on above: Performed By: #### T KINA, FT3 #### [facility] [address] [place] [address] Dr. Sami William MAGNESIUMon 08-29-2022 Magnesium [Mass/Vol] 2.1 mg/dL Normal 1.8-2.4 [facility] Comment on above: Performed By: #### T KINA, FT3 #### [facility] [address] [place] [address] Dr. Sami William PROF 14(COMP METB)on 022 Albumin [Mass/Vol] 3.7 g/dL Normal 3.4-5.0 [facility] Comment on above: Performed By: #### T KINA, FT3 #### [facility] [address] [place] [address] Dr. Sami William Albumin/Globulin [Mass ratio] 1.0 {ratio} Normal [facility] Comment on above: Performed By: #### T KINA, FT3 #### [facility] [address] [place] [address] Dr. Sami William ALP [Catalytic activity/Vol] 66 U/L Normal 46-116 [facility] Comment on above: Performed By: #### T SH, FT3 #### [facility] [address] [place] [address] Dr. Sami William ALT [Catalytic activity/Vol] 33 U/L Normal 14-59 [facility] Comment on above: Performed By: #### T KINA, FT3 #### [facility] [address] [place] [address] Dr. Sami William Anion gap [Moles/Vol] 12.1 mmol/L Normal [facility] Comment on above: Performed By: #### T SH, FT3 #### [facility] [address] [address] [address] Sami iWlliam AST [Catalytic activity/Vol] 35 U/L Normal 15-37 [facility] Comment on above: Performed By: #### T SH, FT3 #### [facility] [address] [place] [address] Dr. Sami William Bilirubin [Mass/Vol] 0.2 mg/dL Normal 0.2-1.0 [facility] Comment on above: Performed By: #### T SH, FT3 #### [facility] [address] [place] [address] Dr. Sami William Calcium [Mass/Vol] 9.4 mg/dL Normal 8.5-10.1 [facility] Comment on above: Performed By: #### T KINA, FT3 #### [facility] [address] [place] [address] Dr. Sami William Chloride [Moles/Vol] 103 mmol/L Normal 98-107 [facility] Comment on above: Performed By: #### T KINA, FT3 #### [facility] [address] [place] [address] Dr. Sami William CO2 [Moles/Vol] 30.9 mmol/L Normal 21.0-32.0 [facility] Comment on above: Performed By: #### T KINA, FT3 #### [facility] [address] [place] [address] Dr. Sami William Creatinine [Mass/Vol] 1.18 mg/dL Critically high 0.55-1.02 [facility] Comment on above: Performed By: #### T KINA, FT3 #### [facility] [address] [place] [address] Dr. Sami William EGFR-AF LAO 54 mL/min/1.73m2 Critically low >=60 [facility] Comment on above: Performed By: #### T KINA, FT3 #### [facility] [address] [place] [address] Dr. Sami William EGFR-NON AF LAO 45 mL/min/1.73m2 Critically low >=60 [facility] Comment on above: Performed By: #### T SH, FT3 #### [facility] [address] [address] [address] Sami William Globulin (S) [Mass/Vol] 3.8 g/dL Normal [facility] Comment on above: Performed By: #### T SH, FT3 #### [facility] [address] [place] [address] Dr. Sami William Glucose [Mass/Vol] 113 mg/dL Critically high 74-106 [facility] Comment on above: Performed By: #### T SH, FT3 #### [facility] [address] [place] [address] Dr. Sami William Potassium [Moles/Vol] 4.0 mmol/L Normal 3.5-5.1 [facility] Comment on above: Performed By: #### T SH, FT3 #### [facility] [address] [place] [address] Dr. Sami William Protein [Mass/Vol] 7.5 g/dL Normal 6.4-8.2 [facility] Comment on above: Performed By: #### T SH, FT3 #### [facility] [address] [place] [address] Dr. Sami William Sodium [Moles/Vol] 142 mmol/L Normal 136-145 [facility] Comment on above: Performed By: #### T SH, FT3 #### [facility] [address] [place] [address] Dr. Sami William Urea nitrogen [Mass/Vol] 28.0 mg/dL Critically high 7.0-18.0 [facility] Comment on above: Performed By: #### T SH, FT3 #### [facility] [address] [place] [address] Dr. Sami William Urea nitrogen/Creatinine [Mass ratio] 23.7 mg/mg Normal [facility] Comment on above: Performed By: #### T SH, FT3 #### [facility] [address] [place] [address] Dr. Sami William TSHon 08-29-2022 TSH 6.046 uIU/mL Critically high 0.358-3.740 [facility] Comment on above: Performed By: #### T SH, FT3 #### [facility] [address] [place] [address] Dr. Sami William VITAMIN D 25 OHon 08-29-2022 VIT D 25-OH 118.0 ng/mL Normal [facility] Comment on above: Performed By: #### V ITAD, FT4 #### [facility] [address] [place] [address] Dr. Sami William VIT D RANGES SEE BELOW Normal [facility] Comment on above: Result Comment: <20 ng/mL Vit D deficient 20 - <30 ng/mL Vit D insufficient 30 - 100 ng/mL Vit D sufficient >100 ng/mL Potential Toxicity Performed By: #### V ITAD, FT4 #### [facility] [facility] [address] [place] [address] Dr. Sami William FREE T3on 06-17-2022 FREE T3 3.44 pg/mlL Normal 2.18-3.98 [facility] Comment on above: Performed By: #### T SH, FT3 #### [facility] [address] [place] [address] Dr. Sami William REVERSE T3on 05-22-2022 Reverse T3, Serum 18.8 ng/dL Normal 9.2-24.1 [facility] Comment on above: Result Comment: This test was developed and its performance characteristics determined by [facility]. It has not been cleared or approved by the Food and Drug Administration. Performed By: #### C BC #### [facility] [address] [place] [address] Dr. Sami William T3, TOTAL (TRIIODOTHYRONINE) on 05-17-2022 T3, TOTAL 163 ng/dL Normal 71-180 [facility] Comment on above: Performed By: #### T 3TOTAL #### [facility] [address] [address] [address] Sami William FREE T3on 05-16-2022 FREE T3 2.81 pg/mlL Normal 2.18-3.98 [facility] Comment on above: Performed By: #### T SH, FT3 #### [facility] [address] [address] [address] Sami William FREE T4on 05-16-2022 Free T4 [Mass/Vol] 1.05 ng/dL Normal 0.76-1.46 [facility] Comment on above: Performed By: #### C BC #### [facility] [address] [place] [address] Dr. Sami William TSHon 05-16-2022 TSH 3.431 uIU/mL Normal 0.358-3.740 [facility] Comment on above: Performed By: #### T SH, FT3 #### [facility] [address] [place] [address] Dr. Sami William Ambulatory Visit Summaryon 0 02-27-2022 Ambulatory Visit Summary PATRICIA BLAKE :1950 Visit Date:02/27/2022 Ambulatory Visit Instructions Your Diagnosis OAB (overactive bladder) Tests Performed Urnls Dip Stick Auto w/o Microscopy POC 50151 Your Care Team Attending Physician - LOUANN BATISTA, LILIAM Ruiz Primary Care Physician - LUZ ELENA GASCA, [...] Urnls Dip Stick Auto w/o Microscopy POC 99885 (02/27/2022) Bilirubin Urine Dipstick - Negative Blood Urine Dipstick - Negative Glucose Urine Dipstick - Negative Ketones Urine Dipstick - Negative Leukocytes Urine Dipstick - Trace Nitrite Urine Dipstick - Negative Protein Urine Dipstick - Negative Specific [place] Urine Dipstick - 1.015 Urine Appearance Urine [...] incontinence Urge incontinence Urinary urgency [facility] Patient Educationon 02-28-20 Patient Education Obstetrics [...] ove (more content not included)... Normal [facility] Urology Office/Clinic Noteon 02-27-2022 Urology Office/Clinic [...] Contact Information LOUANN BATISTA, LILIAM Ruiz, URL [address] [place] [address] Additional Instructions: Patient Education Overactive Bladder, Adult I, Rose Amin, personally scribed for Liliam Lew PA-C on 02/27/2022 13:43:48. . Documentation recorded by the scribe Rose Aimn accurately reflects the services(s) I performed and [...] 0.4 mg= 1 tab(s), SubLingual, q5min, PRN [facility] Vitamin C, Daily Allergies lisinopril (Swelling, Unknown) [...] Protein Urine Dipstick: Negative (02/27/22 13:16:00) Specific [place] Urine Dipstick: 1.015 (02/27/22 13:16:00) Urine Appearance Urine Dipstick: Clear (02/27/22 13:16:00) Urine Color Urine Dipstick: Yellow (02/27/22 13:16:00) Urobilinogen Urine Dipstick: Normal 0.2-1 EU/dl (02/27/22 13:16:00) pH Urine Dipstick: 5.5 (02/27/22 13:16:00) Diagnostic Results Tests Reviewed: Reviewed UA. Normal [facility] Comment on above: Result Comment: Elec tronically Signed By: LILIAM LEW PA-C\.br\Date and Time Signed: 02/27/22 13:51 EDT\.br\Electronically Co-Signed By: Rose Amin\.br\Date and Time Co-Signed: 02/27/22 13:44 EDT CARDIAC [place]HE[place] [address] CARDIAC CATHETERIZATION PATIENT NAME: PATRICIA BLAKE : 1950 MED REC NO: [id number] ROOM: ACCOUNT NO: [id number] ADMIT DATE: 02/12/2022 PROVIDER: Niru Carter DATE [...] with 100 joules. NIRU CARTER [id number] Doc#: [id number] CC: Normal [facility] Free T3on 11-06-2021 FT3 4.02 pg/mL Normal 2.00-4.40 [facility] Comment on above: Performed By: #### F T3, FT4, TSH #### [facility] [address] [place], [place] [id number] Free T4on 11-06-2021 Free T4 [Mass/Vol] 0.93 ng/dL Normal 0.80-1.80 [facility] Comment on above: Performed By: #### F T3, FT4, TSH #### [facility] [address] [place], [place] [id number] Q - T3 TOTALon 11-06-2021 T3, TOTAL 158 ng/dL Normal 76-181 [facility] Comment on above: Order Comment: [facility] performed at: [facility], [address] [place] [address], [address] [place] [address], [phone], Senior Publications Specialist: Jaylon Bagley MD [facility] Date/Time: [facility] Results Received Date/Time: [facility] Reported Date/Time: Performed By: #### 8 59X, [id number] #### [facility] Default [address] [place] [address] Q - T3,REVERSE,LC/MS/MSon T3 REVERSE, LC/MS/MS 15 ng/dL Normal 8-25 [facility] Comment on above: Order Comment: [facility] performed at: [facility], [address], [place], [place], , Senior Publications Specialist: Gian Collins M.D.,PhD [facility] Date/Time: [facility] Results Received Date/Time: [facility] Reported Date/Time: Result Comment: This test was developed and its analytical performance characteristics have been determined by [employer] [place], [place]. It has not been cleared or approved by the U.S. Food and Drug Administration. This assay has been validated pursuant to the CLIA regulations and is used for clinical purposes. Performed By: #### 8 59X, [id number] #### [facility] [address] [place] [address] TSHon 11-06-2021 TSH 3.920 uIU/mL Normal 0.400-4.500 [facility] [employer] Comment on above: Performed By: #### F T3, FT4, TSH #### [facility] [address] [place], [place] [id number] Ambulatory Visit Summaryon 0 10-08-2021 Ambulatory Visit Summary PATRICIA BLAKE :1950 Visit Date:10/08/2021 Ambulatory Visit Instructions Your Diagnosis OAB (overactive bladder) Tests Performed Urnls Dip Stick Auto w/o Microscopy POC 31193 Your Care Team Attending Physician - TIN [...] GASCA, Niru Sanchez Where: [facility] Urology Office/Clinic Noteon 10-08-2021 Urology Office/Clinic Note [...] [place] In 4 months 02/05/2022 EDT [address] [place] [address]- Additional Instructions: w/ UA Patient Education COVID-19 [...] Protein Urine Dipstick: Negative (10/08/21 10:19:00) Specific [place] Urine Dipstick: 1. (more content not included)... Normal [facility] Comment on above: Result Comment: Elec tronically Signed By: Niru CASTLE MD\.br\Date and Time Signed: 10/08/21 10:57 EST\.br\Electronically Co-Signed By: Radha Wilson\.br\Date and Time Co-Signed: 10/08/21 10:55 EST CBC Auto DifferentialOrdered By: Pacheco Carter on 07-12-2021 Absolute Eos # 0.10 [employer] [facility] th Work Phone: Absolute Immature Granulocyte NOT REPORTED [employer] Work Phone: Absolute Lymph # 1.70 [employer] [facility] Work Phone: Absolute Otoe # 0.40 [employer] [facility] Work Phone: Basophils (Bld) [#/Vol] 0.00 10*3/uL [employer] Work Phone: Basophils/100 WBC (Bld) 1 % 0 - 2 % [employer] Work Phone: Differential Type YES [employer] [facility] Work Phone: Eosinophils/100 WBC (Bld) 2 % 0 - 5 % [employer] Work Phone: Hematocrit (Bld) [Volume fraction] 35.0 % Low 36 - 46 % [employer] Work Phone: Hemoglobin.gastrointest inal spec 1 Ql (Stl) 11.4 g/dL Low 12.0 - 16.0 g/dL [employer] Phone: Immature Granulocytes NOT REPORTED 0 % M [employer] Phone: Interpretation and review of laboratory results Abnormal [employer] Phone: Lymphocytes/100 WBC (Bld) 25 % 15 - 40 % [employer] Work Phone: MCH (RBC) [Entitic mass] 26.4 pg 26 - 34 pg [employer] Work Phone: MCHC (RBC) [Mass/Vol] 32.6 g/dL 31 - 37 g/dL M [employer] Work Phone: MCV (RBC) [Entitic vol] 80.9 fL 80 - 100 fL [employer] Work Phone: Monocytes/100 WBC (Bld) 7 % 4 - 8 % M [employer] Work Phone: NRBC Automated NOT REPORTED per 100 WBC [facility] Work Phone: Platelet distribution width (Bld) [Ratio] 17.2 % High 12.1 - 15.2 % [employer] Phone: Platelet Estimate NOT REPORTED [facility] Phone: Platelet mean volume (Bld) [Entitic vol] NOT REPORTED 6.0 - 12.0 fL [employer] Work Phone: Platelets (Bld) [#/Vol] 187 10*3/uL [employer] Phone: RBC (Bld) [#/Vol] 4.33 10*6/uL 4.0 - 5.2 m/uL [facility] Phone: RBC (Bld) [#/Vol] NOT REPORTED [facility] Phone: Segmented neutrophils/100 WBC (Bld) 65 % 47 - 75 % [facility] Work Phone: Segs Absolute 4.50 [employer] [facility] [employer] Work Phone: WBC (Bld) [#/Vol] 6.8 10*3/uL [employer] Phone: WBC (Bld) [#/Vol] NOT REPORTED [facility] Phone: [employer] Work Phone: Comprehensive Metabolic Pane lOrdered By: Pacheco Carter on 07-12-2021 Albumin [Mass/Vol] 4.6 g/dL 3.5 - 5.2 g/dL [employer] Phone: Albumin/Globulin Ratio NOT REPORTED [employer] Phone: ALP (Bld) [Catalytic activity/Vol] 78 U/L 35 - 104 U/L [employer] Phone: ALT [Catalytic activity/Vol] 25 U/L 5 - 33 U/L [employer] Phone: Anion gap [Moles/Vol] 12 mmol/L 9 - 17 mmol/L [employer] Phone: AST [Catalytic activity/Vol] 28 U/L <32 [employer] Phone: Bilirubin [Mass/Vol] 0.17 mg/dL Low 0.30 - 1.20 mg/dL [employer] Phone: Calcium [Mass/Vol] 10.4 mg/dL 8.6 - 10. 4 mg/dL [employer] Phone: Chloride [Moles/Vol] 103 mmol/L 98 - 10 7 mmol/L [employer] Phone: CO2 [Moles/Vol] 26 mmol/L 20 - 31 mmol/L [employer] Phone: Creatinine [Mass/Vol] 0.89 mg/dL 0.50 - 0.90 mg/dL [employer] Phone: Free PSA/Total PSA [Mass fraction] 7.5 g/dL 6.4 - 8.3 g/dL [employer] Phone: GFR >60 >60 mL/min [employer] Phone: GFR Non- >60 >60 mL/min [employer] Phone: GFR/1.73 sq M.predicted MDRD (S/P/Bld) [Vol rate/Area] [employer] Phone: Comment on above: Average GFR for 70 o r more years old: 75 mL/min/1.73sq m Chronic Kidney Disease: <60 mL/min/1.73sq m Kidney failure: <15 mL/min/1.73sq m eGFR calculated using average adult body mass. Additional eGFR calculator available at: http://www.Capricor.Stitch.es/multiple_crcl_2011.htm GFR/1.73 sq M.predicted MDRD (S/P/Bld) [Vol rate/Area] NOT REPORTED [employer] Phone: Glucose [Mass/Vol] 109 mg/dL High 70 - 99 mg/dL [employer] Phone: Interpretation and review of laboratory results Abnormal [employer] Phone: Potassium [Moles/Vol] 4.3 mmol/L 3.7 - 5.3 mmol/L [employer] Phone: Sodium [Moles/Vol] 141 mmol/L 135 - 144 mmol/L [employer] Phone: Urea nitrogen (BldV) [Mass/Vol] 21 mg/dL 8 - 23 mg/dL [employer] Phone: Urea nitrogen/Creatinine (Bld) [Mass ratio] 24 High [employer] Phone: No Panel InformationOrdered By: Pacheco Carter on 07-12-2021 [employer] Phone: TSH with ReflexOrdered By: Lucia Carter on 07-12-2021 TSH Qn 4.58 m[IU]/L [employer] Phone: EKG 12 LeadOrdered By: Pacheco Carter on 06-11-2021 Atrial Rate 101 BPM [employer] Phone: Q-T Interval 348 ms [employer] Phone: QRS Duration 88 ms [employer] Phone: QTc Calculation (Bazett) 475 ms [employer] Phone: R [place] 76 degrees [employer] Phone: T [place] 67 degrees [employer] Phone: Ventricular Rate 112 BPM [email or web address] Phone: Atrial fibrillation with rapid ventricular response Abnormal ECG When compared with ECG of 17-MAY-2019 09:24, Atrial fibrillation has replaced Sinus rhythm Vent. rate has increased BY 45 BPM [facility] Phone: Dario, Mhpn Incoming Ekg Results From [employer] - 06/11/2021 4:17 PM EDT Atrial fibrillation with rapid ventricular response Abnormal ECG When compared with ECG of 17-MAY-2019 09:24, Atrial fibrillation has replaced Sinus rhythm Vent. rate has increased BY 45 BPM [employer] Work Phone: [employer] Work Phone: Atrial Rate 73 BPM [employer] Phone: P [place] 74 degrees [employer] Phone: P-R Interval 164 ms [employer] Phone: Q-T Interval 384 ms [employer] Phone: QRS Duration 88 ms [employer] Phone: QTc Calculation (Bazett) 423 ms [employer] Work Phone: R [place] 73 degrees [employer] Phone: T [place] 72 degrees [employer] Phone: Ventricular Rate 73 BPM [employer] Work Phone: Poor data quality, interpretation may be adversely affected Normal sinus rhythm Cannot rule out Anterior infarct , age undetermined Abnormal ECG When compared with ECG of 11-JUN-2021 10:00, (unconfirmed) Sinus rhythm has replaced Atrial fibrillation Vent. rate has decreased BY 39 BPM [employer] Phone: Dario, Mhpn Incoming Ekg Results From [employer] - 06/11/2021 4:17 PM EDT Poor data quality, interpretation may be adversely affected Normal sinus rhythm Cannot rule out Anterior infarct , age undetermined Abnormal ECG When compared with ECG of 11-JUN-2021 10:00, (unconfirmed) Sinus rhythm has replaced Atrial fibrillation Vent. rate has decreased BY 39 BPM [employer] Phone: [employer] Phone: Ambulatory Clinical Summaryo n 03-26-2021 Ambulatory Clinical Summary {[id number] [facility] Patient Educationon 03-26-20 Patient Education Nutrition Calorie Counting for Weight [...] You could (more content not included)... Normal [facility] Coding Summary.on 03-01-2021 Coding Summary. [id number] [id number] kOKO7VUNBDFIGGFI2QF L4npYA0UVldJ4LamaMk DbrozVCfLH22MXv3LOA 6fYxhLJiwzS0aqCKnN0 p1YpZxRN88lY11ZSgpI HJcWrK0PsVzpvpeuLTh I1ljUvKvzJZmHgh+PHR hYmxlIHdpZHRoPScxMD RzFtTapMlfZG7pSi9lM GVyLWNvbGxhcHNlOiBj z9fuYUKrMGzdAX0vaCn qK6SppWQ0RIQtp6z1Vk 48dHI+KCIsESG0jVoeF Oely098PfYjz2zsMQE7 oWRrNUhxAPK3V94ff2R 5PUWkTCKjLNX4oPC5fN 8jsDcfdhydW3XiqYKiS bH3WDS8sKHvlL5mrRso cgnfpI7jJjv+R65JRO2 EIXGBCE4HBfv1C9DhGo wvdHI+LB45JVTmME23t WMskZEug4thfMs4MgGd UUTkHSJ2xAizGForl3P rZIUxM72ygFZjd6S3OP UvkSuyxSOrUvInpBL9w K0gBMulacvco1nkbayt Eufcc3hrbi56fO94D30 hHWapGVMiKLP5LCRfYB WwtQjgkd5ftP9tUf3+I Utix2ymo4beoPm7JjGp APNkhaNbpXvfQBZ8v9V fSs70J8QdmNdpa9OqTv i3eu65cFQrv4R1xJT7W BdzZCIceM8zUCnsWhA1 GLBkOyMxwZ92qMRfHZx hEi0qoXvrsAeyPM9pMO EjbijaMUBzdQ0zTVAzy LXlzTpiIG6yLXBrsgly u377VvQvSCZ2YRFyeUV tZ9KbgN1bKwXdOPXgQU MnV1KttNSyJJizV296U QikQmQ1NSUcrdYcE4Gc VGPgrIypUfE0s5G9Ld9 Fn9IqjlavCGW9PClrNR T3IlP0EpLhFpB4C7LlY ee9OPNaqOpgBM8iG6Ui WUHigcqhsmrroOW4PZI rUDSudE16jNMdAAxzVp 2zn6D3u436CWIaFVHfh U72Eu9irGapHICkkHJX yV8vsevii7hakzbdCdY tSBMrBVz3DYh8DHHgdN hkJaVkECS9QxY9WSR7j BMupI8tnXhmdydxzK6n Oyc+Q68csX6cBJO7EVK 8rxzsOCNxjgHqKP85CY 05V5IwWgatkSYjdON+P ANhnjVxmLdtCS3bWcJi y2sty7TsVOveD8SqPUU aRMaqCra3SCLbVQF4fQ D8qK8uZEXrSUmfc6L1i HC1U7IbvxQczl7id8dz WAHjISthT48meEDhl6H 6CRKwtQD3RTMuhKbvIs TezO72Jsf+PGNvbGdyb 4FbNyojy4uvb7vybAe7 IjMwJSIgdmFsaWduPSJ 1d6LeGe03W00oDDjcRT RoPSIxNSUiIHZhbGlnb m4wtE0tUz2+PGNvbCB3 nNX2uR3nUFRqMhO9RTs lI673NmGwpTZtAwzaa7 pum7simUz4GzAmXFRnb gLjfSrkVIX9e4ZiTi91 P80aSWpsJQWkQWKjGNC pUARcgJnxtz0muR3wCg 8+FI9kz4paoy24jP90q HI+FMOeZBM4iSosMAsz NBUcqF9oXYnvAsP2VUX fXbImqY15jSIgWBxwXz 8ycJkguJhaCY2qHGYjm jhqc300IaCoq7uzIIQx zLAqVVkpSTP0X35wf3I 8FSMhLKHrZQD5fKV1zK 1hbGlnbjogbGVmdDsgd kRzlNvgXGjaJDlkO518 IHRvcDsnPlBhdGllbnQ kLwLoZYr5E9MeCfk6SF WjkVdzXD9svMBuNBmeI r8ykZyacJmmHD9vTSOi whcsi871TyScc3mbTPA mjZRoJKseEVZ7T88df5 P0TNSrLDFjRLC0bVZ7r C6vyFugjbeecKKwaVbc fqNxpHtqOEdrJThcT39 6IHRvcDsnPkJpcnRoIE RwfZD6JT39XW36jSQqf 5C6pIY8Y2UyBULoiqit qoksuGT8BKKlJVVbhP3 6Cs0fiKhcDm5iECQhXZ Q7HPBafMYlM2UtjN9cF kCpRHBuUTBhU8QfrNYl ZDzcP848TAowDoG3QLZ vyiCnT8JtDMIhuWzpJx W9t2F3Br7WG3A7EP51I N22wNWkr0O1wAE7W3Ky YSNdktcgncthaOH7JWZ pAPIovX40Xz3hsCxdYq 8uNZBvRSS9XDEhyHUrF 6LrjH9sDwPuDSAtVHCz L9HkxQVtELcpB525VGq gSlQ4EJElioCbG8GhRK TimFxhRjU8d0L3Fy2EU As9LF96JO23sAIwm2F2 dPB3H3AuDLDhilezuov mtEN3YJDwFJZhdS99Dw 4jiUejJk8lNXGyGXO8P MFszUPjY8StaS6yJwYk EESvDNMqS9DjpQRiXYn iE623OIalBgD3HUBedc JmY2JyJCOvzZupAxH4a 0H5Qm5OFYAyIJ16USB1 hVP0ZM07DR14D5RsGar vdGFibGU+PHRhYmxlIH dpZHRoPScxMDAlJyBzd AnmOV4iBo5gJXTzWPAq hHxbuSNeSgNyh7uqNYZ aUCtwOE4osVssG2BvaD Z9AONie3k5Uc10B77pJ 3JvdXA+ZALnwEN6kHR0 iP4iFaFdIxT1DThcQ93 6GuQfaRJaQlhfs9fvu3 somRf7HkJ0ZYVgzqAlq ZhmIQW9q1AgWx37D97t IHdpZHRoPSIxNSUiIHZ buHllha6mhJ2mVp7+PG GpgUW3pDB1cQ8cUxUbD gU4RSlaJ112HgOliXHc Plznv4eur8nlkVy2NnJ aPFLbjqOnyBzdSWP4a6 UmUn03N4DvyDetf0DwT hu5kv80mWXos7J1gXX3 Q2MyJNGwldusfAThtKt lYO4bKFUtexyvUGPsnS 7gIFAnS4m3BxOyHhH7F UqwX3OypxQ4YEPlfIXp MDjhOTF6X69me3K2JFM kYDChMMR1tDI8kZ7bxY lnbjogbGVmdDsgdmVyd UuqSNetLZraH913IOWh qJhgJYOrkO7jDQDtcFN sgDxrMM3yKXDmwrzaGs CIDFzuOmuFT7tGXSBuT DwvdGQ+OMIxVNA7uXgv LRsyNDBodR8yWSAzW1l 8WcPaUgG3YIoaL4XjQH VlvgkyHl36xK4jWtNsG aB3BMimQ9PgxrS1YJZp cIGjHFxlXTI4B19ec2H 1NUUxPVEfKZJ5qUE6aM 1hbGlnbjogbGVmdDsgd sIgyNagFSmvKCylW636 ASYlpUemAiQ7DpW4QiJ 5UIg8Z6NwQoi9KWZsfT zfHK7aiQUkMAanWs3so ShdmMmeEQ1gUUYmdtkc JIArqT0pRJNbyQRfkPa qNH2aDFMxjstbi461Uw KmYZP9RHNflKDvM8Sgd Q0kXxJaOYJbBKNuS7Os lQZeSYanU692OMieWkZ 1IOJnfaVhS5DdLKLhsY qkKqW3y7U8Kl76HDWJG WFyczwvdGQ+PHRkIHN0 mTzlLPhhPUUclP9aGUW lW3b8YyZmMrT4UPqoZ2 DwJRBsaoyaNv04dR8xF kXjBoR5VOcaX8QoviI1 WVWldGBuADjyPRC4X35 ef4Y4EZJoGIHzBVW9hW J7hM0hhDurfwnxsGUsh DsgdmVydGljYWwtYWxp W724BSGzvKseOpCnxUK sZTwvdGQ+OLQoODR6pJ fsAVguKFHavP7kDHLzN 3l3SeLlBpM3LQhqS0Jg DZXopxgoLd66fR5kSoA dKwA8DCyuO7QppmA9YF BqqGPnTLunQTG9G50xd 2T2FAPhRTRuHAV8sZX9 lR7ejOjjxmjnfJGsdUt gdmVydGljYWwtYWxpZ2 34FFQsmCluCo42uRDyy NqnwoX6C3CqHtfnhDU+ NQ45PFFwKN32kENvxKT cp5yonBo4FvAkQPOhFJ V9hJkpHWgsk7GjROBgR 59nhHEls5W7NQWnuHhf hREbQxGqfON0yC2mOOg ikarfn5whgiigVengy7 wawi10kC76E02wVXrxJ HRoPSIzMCUiIHZhbGln ag2kiZ6oYs7+PGNvbCB 8nRM4mD1aGvAgWbQ7NL zbK111OjCpnSWfRaref 4upv3muvJv6TsHgHNBr syTkaIwkRIM6m8PkNw5 4R42lHFcrGQBbNYVxKO SwRHUlgVjahg3asT9fD i8+BD4vg9rltm44tF90 dHI+AGKzGRP4kLzaHGx vURMpgF3pBAgiLyA5XP AqCrIpiH63aREdSPcwZ l4rvXpsjPtgIJ8hCGKo ticlq184RlQyb5nzCGY xqFTwIPdeOXL4P97rt6 H8LSCdHCVuBGM4uTQ1q K2ucTnqqkxoiTGpiUke cnEjaWvaMSusJBcvX25 3HIWiqBpfLxIzcRFpL3 nsosGULM0cCwkeeFQ+P XGaFKW1sIpsNBsrZJJj xS9sAQCqL4h1KaDhXpU 8HGhdB6YivmK5GBZpjK StCMOjuWTCfZ9gdaflb 8bzhircNcBhBLXtXKc6 FHh5PELsdMrcXjCcQIB 1QiD8IFC4hGXyfF2lyC jrhmoocO2aYlh+RklOO jwvdGQ+QOBiFPH8oVjk XYxoCMFwmS5aBEHrB0a 2YjCyCeY7VWruO9Myqt C8IXVuuCEiNTFssSICi V8tpdbqd0rpmlgrKmZo OFXhLAb5QVh4GLTlpLr mVwLiURI4MrQ2WZM9zU WpvX5hzMvthtcphN9aE yc+TVJOOjwvdGQ+PHRk NDB7dGweLMstZVMzfQ7 vBEHeH0f2YcOcKnI1LV wrP3KiqlA7TCXbtFLiL GYmfDBAgF7xechci4ua rjzfAxHgHSQuFDu9QHt 8QUJbaMksJpAsLZJ7Cd O9WSK8xIQleS9kjEujz savsK7wUnf+JSV0RLF1 ZX82QX64G8FhYvexqDN ibGU+PHRhYmxlIHdpZH RoPScxMDAlJyBzdHlsZ E7cLb9bOMAoRPPjpXwz cHNl (more content not included)... Normal [facility] POC Glucoseon 05-19-2019 Glucose [Mass/Vol] 132 mg/dL High 65 - 99 mg/dL [facility] Interpretation and review of laboratory results Abnormal [facility] CBC Auto Differentialon Basophils (Bld) [#/Vol] 0.00 10*3/uL [place], [place] Basophils/100 WBC (Bld) 0 % 0 - 2 % [place], [place] Differential Type YES [place], [place] Eosinophils (Bld) [#/Vol] 0.10 10*3/uL [place] Eosinophils/100 WBC (Bld) 2 % 0 - 5 % [place] Erythrocyte distribution width (RBC) [Ratio] 16.0 % High 12.1 - 15.2 % [place] Hematocrit (Bld) [Volume fraction] 33.4 % Low 36 - 46 % [place] Hemoglobin (Bld) [Mass/Vol] 10.8 g/dL Low 12 - 16 g/dL [place] Interpretation and review of laboratory results Abnormal [place] Lymphocytes (Bld) [#/Vol] 1.90 10*3/uL [place] Lymphocytes/100 WBC (Bld) 26 % 15 - 40 % [place] MCH (RBC) [Entitic mass] 26.6 pg 26 - 34 pg [place] MCHC (RBC) [Mass/Vol] 32.4 g/dL 31 - 37 g/dL M [place] MCV (RBC) [Entitic vol] 82.2 fL 80 - 100 fL [place] Monocytes (Bld) [#/Vol] 0.50 10*3/uL [place] Monocytes/100 WBC (Bld) 8 % 4 - 8 % [place] Platelet mean volume (Bld) [Entitic vol] NOT REPORTED 6 - 12 fL [place] Platelets (Bld) [#/Vol] 209 10*3/uL [place] Platelets (Bld) [#/Vol] NOT REPORTED [place] RBC (Bld) [#/Vol] 4.07 10*6/uL 4 - 5.2 m/uL [place], [place] RBC morphology finding Nom (Bld) NOT REPORTED [place] Segmented neutrophils/100 WBC (Bld) 64 % 47 - 75 % [place] Segs Absolute 4.60 [place] WBC (Bld) [#/Vol] NOT REPORTED per 100 WBC [place] WBC (Bld) [#/Vol] 7.2 10*3/uL [place] WBC Morphology NOT REPORTED [place], [place] Comprehensive Metabolic Pane ruiz 05-17-2019 Albumin [Mass/Vol] 4.5 g/dL 3.5 - 5.2 g/dL [place] Albumin/Globulin [Mass ratio] NOT REPORTED [place] ALP [Catalytic activity/Vol] 76 U/L 35 - 104 U/L [place] ALT [Catalytic activity/Vol] 16 U/L 5 - 33 U/L [place] Anion gap [Moles/Vol] 12 mmol/L 9 - 17 mmol/L [place] AST [Catalytic activity/Vol] 20 U/L <32 [place] Bilirubin Ql (U) 0.27 mg/dL Low 0.3 - 1.2 mg/dL [place] Bun/Cre Ratio 37 High [place] Calcium [Mass/Vol] 10.8 mg/dL High 8.6 - 10. 4 mg/dL [place] Chloride [Moles/Vol] 104 mmol/L 98 - 10 7 mmol/L [place] CO2 [Moles/Vol] 26 mmol/L 20 - 31 mmol/L [place] Creatinine [Mass/Vol] 0.78 mg/dL 0.5 - 0.9 mg/dL [place] GFR >60 >60 mL/min [place] GFR Non- >60 >60 mL/min [place] GFR/1.73 sq M predicted among non-blacks MDRD (S/P/Bld) [Vol rate/Area] NOT REPORTED [place] GFR/1.73 sq M predicted among non-blacks MDRD (S/P/Bld) [Vol rate/Area] [place] Comment on above: Average GFR for 70 o r more years old: 75 mL/min/1.73sq m Chronic Kidney Disease: <60 mL/min/1.73sq m Kidney failure: <15 mL/min/1.73sq m eGFR calculated using average adult body mass. Additional eGFR calculator available at: http://www.[employer]/multiple_crcl_2012.htm Glucose [Mass/Vol] 124 mg/dL High 70 - 99 mg/dL [place] Potassium [Moles/Vol] 4.0 mmol/L 3.7 - 5.3 mmol/L [place] Protein [Mass/Vol] 8.2 g/dL 6.4 - 8.3 g/dL [place] Sodium [Moles/Vol] 142 mmol/L 135 - 144 mmol/L [place] Urea nitrogen [Mass/Vol] 29 mg/dL High 8 - 23 mg/dL [place] Lipid Panelon 05-17-2019 Cholesterol [Mass/Vol] 112 mg/dL <200 [place], [place] Comment on above: Cholesterol Guidelines: <200 Desirable 200-240 Borderline >240 Undesirable Cholesterol in HDL [Mass/Vol] 34 mg/dL Low >40 [place] Comment on above: HDL Guidelines: <40 Undesirable 40-59 Borderline >59 Desirable Cholesterol in LDL [Mass/Vol] 55 mg/dL 0 - 130 mg/dL [place] Comment on above: LDL Guidelines: <100 Desirable 100-129 Near to/above Desirable 130-159 Borderline >159 Undesirable Direct (measured) LDL and calculated LDL are not interchangeable tests. Cholesterol in VLDL [Mass/Vol] NOT REPORTED 1 - 30 mg/dL [place] Cholesterol.total/Salome sterol in HDL [Mass ratio] 3.3 {ratio} <5 [place] Triglyceride [Mass/Vol] 113 mg/dL <150 M [place] Comment on above: Triglyceride Guidelines: <150 Desirable 150-199 Borderline 200-499 High >499 Very high Based on AHA Guidelines for fasting triglyceride, June 2012. Otheron 05-17-2019 Interpretation and review of laboratory results Abnormal [place] Immature granulocytes (Bld) [#/Vol] NOT REPORTED [place] Patient Fasting?on 9 Patient Fasting? yes [place], [place] Vital Signs Date Time Vital Sign Value Performing Clinician Facility 10-26-2024 14:32-0500 Body height 151.8 cm Aashish Laguna MD Work Phone: [facility] 10-26-2024 14:32-0500 Body mass index (BMI) [Ratio] 40.96 kg/m2 Aashish Laguna MD Work Phone: [facility] 10-26-2024 14:32-0500 Body weight 94.35 kg Aashish Laguna MD Work Phone: [facility] 08-23-2024 13:34-0500 Body height 148.6 cm Angel Russ DO Work Phone: [facility] 08-23-2024 13:34-0500 Body mass index (BMI) [Ratio] 42.73 kg/m2 Angel Russ DO Work Phone: [facility] 08-23-2024 13:34-0500 Body weight 94.35 kg Angel Russ DO Work Phone: [facility] 08-23-2024 13:34-0500 Diastolic blood pressure 78 mm[Hg] Angel Russ DO Work Phone: [facility] 08-23-2024 13:34-0500 Systolic blood pressure 134 mm[Hg] Angel Russ DO Work Phone: [facility] 07-21-2024 14:25-0500 Body height 151.8 cm Aashish Laguna MD Work Phone: [facility] 07-21-2024 14:25-0500 Body mass index (BMI) [Ratio] 43.13 kg/m2 Aashish Laguna MD Work Phone: [facility] 07-21-2024 14:25-0500 Body weight 99.34 kg Aashish Laguna MD Work Phone: [facility] 07-21-2024 14:25-0500 Diastolic blood pressure 78 mm[Hg] Aashish Laguna MD Work Phone: [facility] 07-21-2024 14:25-0500 Heart rate 82 /min Aashish Laguna MD Work Phone: [facility] 07-21-2024 14:25-0500 SaO2% (BldA) [Mass fraction] 98 % Aashish Laguna MD Work Phone: [facility] 07-21-2024 14:25-0500 Systolic blood pressure 126 mm[Hg] Aashish Laguna MD Work Phone: [facility] 05-12-2024 14:21-0400 Body height 151.8 cm Aashish Laguna MD Work Phone: [facility] 05-12-2024 14:21-0400 Body mass index (BMI) [Ratio] 43.13 kg/m2 Aashish Laguna MD Work Phone: [facility] 05-12-2024 14:21-0400 Body weight 99.34 kg Aashish Laguna MD Work Phone: [facility] 05-04-2024 14:29-0400 Body height 151.8 cm Aashish Laguna MD Work Phone: [facility] 05-04-2024 14:29-0400 Body mass index (BMI) [Ratio] 43.13 kg/m2 Aashish Laguna MD Work Phone: [facility] 05-04-2024 14:29-0400 Body weight 99.34 kg Aashish Laguna MD Work Phone: [facility] 10-15-2023 13:56-0500 Body height 151.8 cm Aashish Laguna MD Work Phone: [facility] 10-15-2023 13:56-0500 Body mass index (BMI) [Ratio] 41.75 kg/m2 Aashish Laguna MD Work Phone: [facility] 10-15-2023 13:56-0500 Body weight 96.16 kg Aashish Laguna MD Work Phone: [facility] 09-17-2022 10:22-0500 Diastolic blood pressure 77 mm[Hg] [facility] [employer] 09-17-2022 10:22-0500 Heart rate 102 /min [facility] [employer] 09-17-2022 10:22-0500 Systolic blood pressure 130 mm[Hg] [facility] [employer] 02-27-2022 13:23-0400 Blood Pressure Location LILIAM LEW [facility] 02-27-2022 13:23-0400 Diastolic blood pressure 64 mm[Hg] LILIAM LEW [facility] 02-27-2022 13:23-0400 Heart rate 72 /min LILIAM LEW [facility] 02-27-2022 13:23-0400 Systolic blood pressure 137 mm[Hg] LILIAM LEW [facility] 02-12-2022 11:14-0400 Diastolic blood pressure 89 mm[Hg] Mw Rm [facility] [employer] 02-12-2022 11:14-0400 Heart rate 67 /min [facility] Rm [facility] [employer] 02-12-2022 11:14-0400 Respiratory rate 18 /min Mw R[facility] 02-12-2022 11:14-0400 SaO2% (BldA) [Mass fraction] 98 % Mw Rm [facility] [facility] [employer] 02-12-2022 11:14-0400 Systolic blood pressure 129 mm[Hg] [facility] Rm [facility] [employer] [facility] [employer] 06-11-2021 11:42-0400 Diastolic blood pressure 76 mm[Hg] Mw Rm [facility] Work Phone: 06-11-2021 11:42-0400 Heart rate 83 /min Mw Rm [facility] Work Phone: 06-11-2021 11:42-0400 Respiratory rate 21 /min Mw Rm [facility] Work Phone: 06-11-2021 11:42-0400 SaO2% (BldA) [Mass fraction] 96 % Mw Rm [facility] Work Phone: 06-11-2021 11:42-0400 Systolic blood pressure 123 mm[Hg] [facility] [employer] Work Phone: 05-19-2019 10:52-0400 BP Diastolic 55 mm[Hg] Niru Carter [facility] 05-19-2019 10:52-0400 BP Systolic 122 mm[Hg] Niru Carter [facility] 05-19-2019 10:52-0400 Pulse (Heart Rate) 60 /min [facility] 05-19-2019 10:52-0400 Pulse Oximetry 92 % Niru Carter [facility] 05-19-2019 06:25-0400 BMI (Body Mass Index) 43.61 kg/m2 [facility] 05-19-2019 06:25-0400 Body weight 104.69 kg [facility] 05-19-2019 06:25-0400 Height 154.9 cm [facility] 05-19-2019 06:25-0400 Respiratory Rate 16 /min [facility] 05-19-2019 06:25-0400 Body Temperature 97.9 [degF] [facility] Encounter Date Encounter Type Care Provider Facility Start: 11-28-2024 End: 11-28-2024 ambulatory Aashish Laguna MD Work Phone: [facility] Work Phone: Start: 11-28-2024 End: 11-28-2024 Departed Referred Aashish Laguna MD Work Phone: [facility] Start: 11-25-2024 End: 11-25-2024 Patient encounter procedure Aashish Laguna MD Work Phone: [facility] Work Phone: Start: 11-25-2024 End: 11-25-2024 ambulatory Aashish Laguna MD Work Phone: [facility] Work Phone: Start: 11-09-2024 End: 11-09-2024 [...] 25 minutes Angel Russ DO Work Phone: [facility] Comment on above: Encounter for gyneco logical examination without abnormal finding (Primary Dx); Breast cancer screening by mammogram; Omphalitis; Chronic dermatitis; Chronic vulvitis Start: 08-23-2024 End: 08-23-2024 Patient encounter status Angel Russ DO Work Phone: [facility] Start: 08-23-2024 End: 08-23-2024 ambulatory ANGEL RUSS Not Available Start: 07-21-2024 End: 07-21-2024 Office outpatient visit 25 minutes Aashish Laguna MD Work Phone: [facility] Comment on above: Essential hypertensi on; Stage 3b chronic kidney disease (HCC) ([facility]/HCC); Type 2 diabetes mellitus with stage 3b chronic kidney disease, without long-term current use of insulin (HCC) ([facility]/HCC); Microalbuminuric diabetic nephropathy ([facility]/HCC); Hyperlipidemia, mixed ([facility]/HCC); 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 ([facility]/HCC); Pulmonary hypertension ([facility]/HCC); Morbid obesity ([facility]/HCC); BMI 40.0-44.9, adult ([facility]) Start: 07-21-2024 End: 07-21-2024 ambulatory AASHISH LAGUNA Not Available Start: 07-21-2024 End: 07-21-2024 Bamboo ferny Laguna MD Work Phone: [facility] Start: 07-21-2024 End: 07-21-2024 Evgenyboo ferny Laguna MD Work Phone: [facility] Start: 05-12-2024 End: 05-12-2024 Office outpatient visit 25 minutes Aashish Laguna MD Work Phone: [facility] Comment on above: Recurrent major depr essive disorder, in partial remission (HCC) ([facility]); Chronic post-traumatic stress disorder (PTSD) ([facility]); Mild cognitive impairment with memory loss; Morbid obesity ([facility]); BMI 40.0-44.9, adult ([facility]); Hyperuricemia; Acute idiopathic gout involving toe, unspecified laterality Start: 05-12-2024 End: 05-12-2024 ambulatory AASHISH LAGUNA Not Available Start: 05-12-2024 End: 05-12-2024 Bamboo flowsalyssa Laguna MD Work Phone: [facility] Start: 05-12-2024 End: 05-12-2024 Bamboo flowsalyssa Laguna MD Work Phone: [facility] [...] major depressive disorder, in partial remission (HCC) (CMS/HCC); Chronic post-traumatic stress disorder (PTSD) (CMS/HCC) Start: 10-02-2023 End: 10-02-2023 ambulatory MD Aashish Laguna Work Phone: [facility] Work Phone: Start: 10-02-2023 End: 10-02-2023 Patient encounter procedure MD Aashish Laguna Work Phone: [facility] Work Phone: Start: 12-11-[address] AASHISH LAGUNA . Fac ility:[facility]1 Start: 11-29-2022 End: 11-29-2022 ambulatory MD Aashish Laguna Work Phone: [facility] Work Phone: Start: 11-29-2022 End: 11-29-2022 Patient encounter procedure MD Aashish Laguna Work Phone: [facility] Work Phone: Start: 11-25-2022 End: 11-25-2022 ambulatory MD Aashish Laguna Work Phone: [facility] Work Phone: Start: 11-25-2022 End: 11-25-2022 Patient encounter procedure MD Aashish Laguna Work Phone: [facility] Work Phone: Start: 11-04-2022 End: 11-05-[address] AASHISH LAGUNA . Facility:[facility] Start: 10-22-[address] AASHISH LAGUNA . Fac ility:[facility] Start: 10-18-2022 End: 10-19-[address] AASHISH LAGUNA . Facility:[facility] Start: 10-15-2022 End: 10-15-[address] AASHISH LAGUNA . Facility:[facility] Start: 10-14-2022 End: 10-14-2022 ambulatory MD Aashish Laguna Work Phone: [facility] Work Phone: Start: 10-14-2022 End: 10-14-2022 Patient encounter procedure MD [facility]ashish Laguna [facility] Work [facility]: Start: 09-17-2022 End: 09-20-2022 [facility]ulatory [facility] Start: 09-17-2022 End: 09-19-2022 Subsequent hospital visit by physician Shruti Stress R[facility] Comment on [...] Facility:[facility]1 Start: 03-18-2022 End: 03-19-2022 ambulatory [facility] Start: 03-18-2022 End: 03-18-2022 Subsequent hospital visit by physician Aashish Laguna MD Work Phone: [facility] Comment on above: Atrial fibrillation, new onset (HCC) Start: 02-27-2022 End: 02-27-2022 Patient encounter procedure LILIAM LEW [facility] Start: 02-12-2022 End: 02-13-2022 ambulatory [facility] Start: 02-12-2022 End: 02-12-2022 Subsequent hospital visit by physician Shruti Stress Rm [facility] Comment on [...] 06-11-2021 Subsequent hospital visit by physician Shruti Stress Rm [facility] Comment on above: Arrived Start: 10-14-2020 End: 10-14-2020 Orders Only Nahomy Hernandez Work Phone: [facility] Start: 05-19-2019 End: 05-19-2019 Patient encounter procedure NIRU CARTER [facility] Start: 05-19-2019 End: 05-19-2019 Subsequent hospital visit by physician Niru Carter Work Phone: [facility] Procedural Care Unit Start: 05-17-2019 End: 05-17-2019 Subsequent hospital visit by physician Aashish [facility] Comment on above: SOB (shortness [...] Phone: Start: 05-17-2019 Comprehensive metabo lic panel Pacheoc Carter Work Phone: Start: 05-17-2019 Lipid panel [facility] Work Phone: Start: 05-17-2019 PATIENT FASTING? Pacheco [...] Start: 05-17-2026 Glaucoma screening Diabetes: Retinopathy Screening [facility] Start: 09-30-2025 Screening for malignant neoplasm of colon [facility] Start: 08-24-2025 End: 08-24-2025 Patient encounter procedure 08/24/2025 1:45 PM EST Office Visit [facility] [address] [place] [id number] Angel Russ, DO [address] [place] [address] [facility] Start: 05-16-2025 Glaucoma screening Diabetes: Retinopathy Screening [facility] Start: 04-20-2025 End: 04-20-2025 Patient encounter procedure 04/20/2025 2:00 PM EDT Office Visit [facility] [address] [place] [address] Aashish Laguna MD [address] [place] [address] [place] [id number] [facility] Start: 03-25-2025 End: 10-26-2025 T3, reverse T3, reverse Lab Routine Chronic fatigue ESS (euthyroid sick syndrome) Expected: 03/25/2025, Expires: 10/26/2025 [facility] Comment on above: Expected: 03/25/2025, Expires: Start: 03-25-2025 End: 10-26-2025 Thyrotropin [Units/volume] in Serum or Plasma TSH Lab Routine Acquired hypothyroidism (CMS/HCC) Chronic fatigue Expected: 03/25/2025, Expires: 10/26/2025 [facility] Comment on above: Expected: 03/25/2025, Expires: Start: 03-25-2025 End: 10-26-2025 Thyroxine (T4) free [Mass/volume] in Serum or Plasma T4, free Lab Routine Acquired hypothyroidism (CMS/HCC) Chronic fatigue Expected: 03/25/2025, Expires: 10/26/2025 [facility] Comment on above: Expected: 03/25/2025, Expires: Start: 03-25-2025 End: 10-26-2025 Triiodothyronine (T3) [Mass/volume] in Serum or Plasma T3 Lab Routine Chronic fatigue ESS (euthyroid sick syndrome) Expected: 03/25/2025, Expires: 10/26/2025 [facility] Work Phone: Comment on above: Expected: 03/25/2025, Expires: Start: 03-25-2025 End: 10-26-2025 Triiodothyronine (T3) Free [Mass/volume] in Serum or Plasma T3, free Lab Routine Chronic fatigue ESS (euthyroid sick syndrome) Expected: 03/25/2025, Expires: 10/26/2025 [facility] Comment on above: Expected: 03/25/2025, Expires: Start: 02-03-2025 Urine screening for protein Diabetes: Urine Protein Screening [facility] Start: 01-13-2025 End: 01-13-2025 Patient encounter procedure [facility] Start: 12-01-2024 Pneumococcal Vaccine: 65+ Years (2 of 2 - PCV) Pneumococcal Vaccine: 65+ Years (2 of 2 - PCV) [facility] Comment on above: Postponed from 04/01/2019 (Patient Refus ed) Start: 11-28-2024 Bacteria identified in Urine by Culture [facility] Start: 11-28-2024 Urine culture [facility] Start: 11-09-2024 End: 11-09-2024 Patient encounter procedure [facility] Comment on above: Encounter for Medicare annual wellness e xam; Advance directive in chart; Encounter for screening for other disorder; Screening for alcohol problem; Morbid obesity (CMS/HCC); BMI 40.0-44.9, adult ([facility]); Type 2 diabetes mellitus with stage 3a chronic kidney disease, without long-term current use of insulin (HCC) (CMS/HCC); Stage 3b chronic kidney disease (HCC) ([facility]); Essential hypertension; Microalbuminuric diabetic nephropathy (CMS/HCC); Hyperlipidemia, mixed ([facility]/HCC) Start: 11-04-2024 End: 05-04-2025 T3, reverse T3, reverse Lab Routine Chronic fatigue Expected: 11/04/2024 (Approximate), Expires: 05/04/2025 [facility] Comment on above: Expected: 11/04/2024 (Approximate), Expi res: 05/04/2025 Start: 11-04-2024 End: 05-04-2025 Thyrotropin [Units/volume] in Serum or Plasma TSH Lab Routine Chronic fatigue Expected: 11/04/2024 (Approximate), Expires: 05/04/2025 [facility] Comment on above: Expected: 11/04/2024 (Approximate), Expi res: 05/04/2025 Start: 11-04-2024 End: 05-04-2025 Thyroxine (T4) free [Mass/volume] in Serum or Plasma T4, free Lab Routine Chronic fatigue Expected: 11/04/2024 (Approximate), Expires: 05/04/2025 [facility] Comment on above: Expected: 11/04/2024 (Approximate), Expi res: 05/04/2025 Start: 11-04-2024 End: 05-04-2025 Triiodothyronine (T3) [Mass/volume] in Serum or Plasma T3 Lab Routine Chronic fatigue Expected: 11/04/2024 (Approximate), Expires: 05/04/2025 [facility] Work Phone: Comment on above: Expected: 11/04/2024 (Approximate), Expi res: 05/04/2025 Start: 11-04-2024 End: 05-04-2025 Triiodothyronine (T3) Free [Mass/volume] in Serum or Plasma T3, free Lab Routine Chronic fatigue Expected: 11/04/2024 (Approximate), Expires: 05/04/2025 [facility] Comment on above: Expected: 11/04/2024 (Approximate), Expi res: 05/04/2025 Start: 10-26-2024 End: 10-26-2024 Patient encounter procedure [facility] Start: 10-03-2024 End: 10-24-2025 DBT Breast - bilateral screening Bilateral screening mammogram with tomosynthesis Imaging Routine Breast cancer screening by mammogram Expected: 10/03/2024, Expires: 10/24/2025 [facility] Work Phone: Comment on above: Expected: 10/03/2024, Expires: Start: 10-02-2024 [facility] Start: 08-23-2024 End: 08-23-2024 Patient encounter procedure 08/23/2024 1:45 PM EST Office Visit [facility] [address] [place] [address] Angel Russ, DO [address] [place] [address] [facility] Start: 08-06-2024 Hemoglobin A1c measurement Diabetes: Hemoglobin A1C [facility] Start: 07-21-2024 End: 07-21-2024 Patient encounter procedure 07/21/2024 2:30 PM EST Office Visit [facility] [address] [facility] [address] [place] [address] Aashish Laguna MD [address] [place] [address] (Fax) [facility] Start: 05-13-2024 End: 05-13-2024 Patient encounter procedure 05/13/2024 2:30 PM EDT Office Visit [facility] [address] [facility] [address] [place] [address] Aashish Laguna MD [address] [place] [address] (Fax) [facility] Start: 05-12-2024 End: 05-12-2024 Patient encounter procedure [facility] Comment on above: Recurrent major depressive disorder, in partial remission (HCC) (CMS/HCC); Chronic post-traumatic stress disorder (PTSD) (CMS/HCC); Mild cognitive impairment with memory loss; Morbid obesity ([facility]); BMI 40.0-44.9, adult ([facility]) Start: 05-09-2024 Influenza vaccination Influenza Vaccine (#1) [facility] Start: 05-06-2024 Hemoglobin A1c measurement Diabetes: Hemoglobin A1C [facility] Start: 05-04-2024 End: 05-04-2024 Patient encounter procedure [facility] Comment on above: ESS (euthyroid sick syndrome); Chronic fatigue syndrome; Morbid obesity ([facility]); BMI 40.0-44.9, adult ([facility]) Start: 02-05-2024 End: 02-05-2024 Patient encounter procedure 02/05/2024 2:00 PM EDT Office Visit [facility] [address] [place] [address] Aashish Laguna MD [address] [facility] [place] [address] (Fax) [facility] Start: 11-11-2023 End: 11-11-2023 Patient encounter procedure 11/11/2023 2:30 PM EST Office Visit [facility] [address] [place] [address] Aashish Laguna MD [address] [facility] [place] [address] (Fax) [facility] Start: 10-15-2023 End: 10-15-2023 Patient encounter procedure 10/15/2023 2:00 PM EST Office Visit [facility] [address] [place] [facility] [place] [address] Aashish Laguna MD [address] [place] [facility] [place] [address] (Fax) [facility] Start: 10-01-2023 Hemoglobin A1c measurement Diabetes: Hemoglobin A1C [facility] Start: 09-17-2023 Lipid panel Lipids [facility] Start: 09-05-2023 Urine screening for protein Diabetes: Urine Protein Screening [facility] Start: 07-17-2023 Medicare Annual Wellness (AWV) Medicare Annual Wellness (AWV) [facility] Start: 03-17-2023 End: 03-17-2023 Patient encounter procedure 03/17/2023 Office Visit Cardiology Pacehco Carter MD [address] [place] [address] [facility] Start: 10-08-2022 Urine screening for protein Diabetic [facility]albuminuria test [facility] Start: 09-17-2022 End: 09-17-2022 Patient encounter procedure 09/17/2022 Office Visit Cardiology Pacheco Carter MD [address] [place], [place] [phone] [facility] Start: 07-12-2022 GFR test (Diabetes, CKD 3-4, OR last GFR 15-59) GFR test (Diabetes, CKD 3-4, OR last GFR 15-59) [facility] Start: 05-09-2022 Influenza vaccination Flu vaccine (#1) [facility] Start: 04-08-2022 Influenza vaccination Flu vaccine (#1) [facility] Start: 03-18-2022 End: 03-18-2022 Patient encounter procedure 03/18/2022 Office Visit Cardiology Pacheco Carter MD [address] [place] [address] [facility] Start: 01-08-2022 End: 01-08-2022 Patient encounter procedure 01/08/2022 Office Visit Cardiology Pacheco Carter MD [address] [place] [address] [facility] Start: 10-04-2021 Urine screening for protein [facility] Start: 08-05-2021 Screening for malignant neoplasm of colon Colonoscopy [facility] Start: 07-12-2021 End: 07-12-2021 Patient encounter procedure 07/12/2021 Office Visit Cardiology Pacheco Carter MD [address] [place] [address] [facility] Start: 05-09-2021 Influenza vaccination Flu vaccine (#1) [facility] Work Phone: Start: 05-17-2020 Lipid panel [facility] Start: 04-11-2020 End: 04-11-2020 Office Visit 04/11/2020 Office Visit Cardiology Pacheco Carter MD [address] [place] [address] [phone] [facility] Start: 03-26-2020 Screening for malignant neoplasm of colon [facility] Start: 05-19-2019 End: 05-19-2019 Nurse Only 05/19/2019 Nurse Only Cardiology [facility] Start: 05-09-2019 Influenza vaccination Flu vaccine (#1) [place], [place] Start: 04-01-2019 Pneumococcal 65+ years Vaccine (2 - PCV) Pneumococcal 65+ years Vaccine (2 - PCV) [facility] Start: 04-01-2019 Pneumococcal 65+ years Vaccine (2 of 2 - PCV13) Pneumococcal 65+ years Vaccine (2 of 2 - PCV13) [place] Start: 04-01-2019 Pneumococcal Vaccine: 65+ Years (2 - PCV) Pneumococcal Vaccine: 65+ Years (2 - PCV) [facility] Start: 02-28-2019 Annual Wellness Visit (AWV) Annual Wellness Visit (AWV) [facility] Start: 03-26-2018 Screening for malignant neoplasm of colon [facility] Start: 11-18-2017 Lipid screen Lipid screen [place], [place] Start: 2014 DEXA (modify frequency per FRAX score) DEXA (modify frequency per FRAX score) [place] Start: 08-19-2013 Shingles Vaccine (2 of 3) Shingles Vaccine (2 of 3) [place], [place] Start: 2012 Annual Wellness Visit (AWV) Annual Wellness Visit (AWV) [place] Start: 09-11-2006 DTaP/Tdap/Td vaccine (1 - Tdap) DTaP/Tdap/Td vaccine (1 - Tdap) [facility] Start: 2004 Screening for osteoporosis DEXA (modify frequency per FRAX score) [facility] Start: 1999 Colon cancer screen colonoscopy Colon cancer screen colonoscopy [place], [place] Start: 1994 Screening for malignant neoplasm of colon [facility] Start: 1989 Breast cancer screen Breast cancer screen [place], [place] Start: 1989 Screening for malignant neoplasm of breast Breast cancer screen [facility] Start: 1967 Diabetic microalbuminuria test Diabetic microalbuminuria test [place], [place] Start: 1967 Diabetic retinal exam Diabetic retinal exam [facility] Start: 1967 Glaucoma screening Diabetic retinal exam [facility] Start: 1967 Hepatitis C screening Hepatitis C screen [facility] Start: 1961 Depression Screen Depression Screen [facility] Start: 1959 [object Object] Diabetic foot exam [place], [place] Start: 1959 A1C test (Diabetic or Prediabetic) A1C test (Diabetic or Prediabetic) [place], [place] Start: 1959 Diabetic foot examination Diabetic foot exam [facility] Start: 1959 Diabetic retinal exam Diabetic retinal exam [place], [place] Start: 1959 Hemoglobin A1c measurement A1C test (Diabetic or Prediabetic) [facility] Start: 1949 Annual Wellness Visit (AWV) Annual Wellness Visit (AWV) [facility] Start: 1950 Hepatitis C screen Hepatitis C screen [place], [place] Start: 1949 Hepatitis C screening Hepatitis C screen [facility] [employer] Work Phone: Start: 1950 Screening for malignant neoplasm of colon [facility] Cardiac catheterization Cardiac Catheterization Cardiac Cath Routine 05/19/2019 8:40 AM EDT [facility] End: 02-12-2022 Cardioversion Defibrillation Cardioversion Defibrillation Cardiac Cath Routine Atrial fibrillation, new onset (HCC) 1 Occurrences starting 02/12/2022 until 02/12/2022 [facility] [employer] Work Phone: Comment on above: 1 Occurrences starting 02/12/2022 until 02/12/2022 [facility] [place] [place] EKG 12 Lead [employer] [facility] [employer] Work Phone: EKG 12 Lead EKG 12 Lead ECG Routine Atrial fibrillation, new onset (HCC) 03/18/2022 9:40 AM EDT [employer] Work Phone: Immunizations Immunization Date Immunization Notes Care Provider [facility] 08-11-2024 ABRYSVO - Respirator y syncytial virus (RSV), vaccine, bivalent, protein subunit RSV prefusion F, diluent reconstituted, 0.5 mL, PF Aashish Laguna MD Work Phone: [facility] 08-11-2024 Pneumococcal Conjuga te PCV 20 Aashish Laguna MD Work Phone: [facility] 06-21-2024 SARS-COV-2 (COVID-19 ) vaccine, mRNA, spike protein, LNP, PF, 50 mcg/0.5 mL Aashish Laguna MD Work Phone: [facility] 06-21-2024 Seasonal trivalent influenza vaccine, adjuvanted, preservative free Aashish Laguna MD Work Phone: [facility] 08-14-2023 SARS-COV-2 (COVID-19 ) vaccine, mRNA, spike protein, LNP, PF, 50 mcg/0.5 mL Aashish Laguna MD Work Phone: [facility] 07-10-2023 Influenza, Seasonal, Quadrivalent, Adjuvanted Aashish Laguna MD Work Phone: [facility] 07-10-2023 influenza virus vacc ine, unspecified formulation Aashish Laguna MD Work Phone: [facility] 08-14-2022 influenza, injectabl e, quadrivalent, preservative free Aashish Laguna MD Work Phone: [facility] 06-13-2021 influenza, high dose seasonal, preservative-free Aashish Laguna MD Work Phone: [facility] 06-13-2021 Seasonal, trivalent, recombinant, injectable influenza vaccine, preservative free Aashish Laguna MD Work Phone: [facility] 11-15-2020 SARS-CoV-2 (COVID-19 ) mRNA-1273 vaccine LILIAM LEW [facility] Comment on above: Result Comment: 2 sh ot 10-12-2020 SARS-CoV-2 (COVID-19 ) mRNA-1273 vaccine LILIAM LEW [facility] Comment on above: Result Comment: 1st shot 07-06-2020 Seasonal trivalent influenza vaccine, adjuvanted, preservative free Aashish Laguna MD Work Phone: [facility] 06-21-2020 zoster vaccine recombinant Aashish Laguna MD Work Phone: [facility] 10-08-2019 zoster vaccine recombinant Aashish Laguna MD Work Phone: [facility] 07-05-2019 influenza, high dose seasonal, preservative-free Aashish Laguna MD Work Phone: [facility] 07-06-2018 influenza, high dose seasonal, preservative-free Aashish Laguna MD Work Phone: [facility] 07-06-2018 influenza, injectabl e, quadrivalent, preservative free Aashish Laguna MD Work Phone: [facility] 04-01-2018 pneumococcal polysaccharide vaccine, 23 valent Aashish Laguna MD Work Phone: [facility] 06-23-2017 influenza, injectabl e, quadrivalent, preservative free Aashish Laguna MD Work Phone: [facility] 07-08-2016 influenza, injectabl e, quadrivalent, preservative free Aashish Laguna MD Work Phone: [facility] 07-08-2016 Seasonal trivalent influenza vaccine, adjuvanted, preservative free Aashish Laguan MD Work Phone: [facility] 08-09-2015 influenza, seasonal, injectable, preservative free Aashish Laguna MD Work Phone: [facility] 07-10-2015 influenza, injectabl e, quadrivalent, preservative free Aashish Laguna MD Work Phone: [facility] 06-18-2013 zoster vaccine, live Aashish Laguna MD Work Phone: [facility] 05-19-2013 pneumococcal polysaccharide vaccine, 23 valent Aashish Laguna MD Work Phone: [facility] 09-10-2006 tetanus and diphther ia toxoids, adsorbed, preservative free, for adult use (5 Lf of tetanus toxoid and 2 Lf of diphtheria toxoid) Aashish Laguna MD Work Phone: [facility] Payers Date Payer Category Payer Private Health Insurance ASTER Sam mbflorentino [id number] 2022 Unknown AARLaura RODARTE xxxxxx [id number] 2022-Present [address] [place] [address] [id number] 2016 Unknown AARLaura RODARTE [employer] [id number] 2016-Present [id number] [id number] .[id number] 2014 Unknown [id number] [id number] .[id number] 2014 Medicare MEDICARE MEDICAR E PART A & B [id number] 2014-Present [place] [id number] .[id number] 2014 Medicare MEDICARE MEDICAR E PART A & B xxxxxxxxxx 2014-Present [place] xxxxxxxxxx [id number] .[id number] 2014 Medicare [id number] [id number] .[id number] 1959 Medicare [id number] 1959 Self-pay [id number] 1959 Unknown [id number] 1949 Unknown [id number] 2.840.1.535836.3.579.2 .903 1949 Unknown [id number] 2.840.1.807716.3.579.2 .174 1949 Unknown [id number] 2.16.840.1.339492.3.579.2 .174 1949 Unknown [id number] 2.16.840.1.233679.3.579.2 .174 1949 Unknown [id number] 2.16.840.1.754748.3.579.2 .174 1949 Unknown [id number] 2.16.840.1.751227.3.579.2 .174 1949 Unknown [id number] 2.16.840.1.053137.3.579.2 .174 1949 Unknown [id number] 2.16.840.1.952010.3.579.2 .174 1949 Unknown [id number] 2.16.840.1.506620.3.579.2 .593 1949 Unknown [id number] 2.16.840.1.547930.3.579.2 .593 1949 Unknown [id number] 2.16.840.1.163044.3.579.2 .593 1949 Unknown [id number] 2.16.840.1.915895.3.579.2 .593 1949 Unknown [id number] 2.16.840.1.270060.3.579.2 .593 1949 Unknown [id number] 2.16.840.1.823796.3.579.2 .593 1949 Unknown [id number] 2.16.840.1.656645.3.579.2 .593 1949 Unknown [id number] 2.16.840.1.004526.3.579.2 .593 1949 Unknown [id number] 2.16.840.1.093192.3.579.2 .593 1949 Unknown [id number] 2.16.840.1.105686.3.579.2 .593 1949 Unknown [id number] 2.16.840.1.315362.3.579.2 .593 1949 Unknown [id number] 2.16.840.1.154057.3.579.2 .1259 1949 Unknown [id number] 2.16.840.1.192565.3.579.2 .1259 1949 Unknown [id number] 2.16.840.1.340047.3.579.2 .1259 1949 Unknown [id number] 2.16.840.1.242559.3.579.2 .1258 1949 Unknown [id number] 2.16.840.1.650105.3.579.2 .1258 1949 Unknown [id number] 2.16.840.1.356539.3.579.2 .1258 1949 Unknown [id number] 2.16.840.1.276604.3.579.2 .1258 1949 Unknown [id number] 2.16.840.1.648832.3.579.2 .1259 Medicare [employer] [id number] Unknown [id number] 2.16.840.1.684042.3.579.2 .531 Unknown [id number] 2.16840.1.482373.3.579.2 .531 Social History Date Type Detail Facility Start: 05-21-2019 End: 06-12-2023 Tobacco smoking status NHIS Never smoker [place] Start: 05-21-2019 End: 06-12-2023 Tobacco use and exposure Never used [facility] Start: 05-21-2019 End: 10-26-2024 Alcohol intake Ex-drinker (finding) [facility] Start: 1950 Sex Assigned At Not on file M [place] Start: 05-17-2019 End: 10-26-2024 Alcohol intake No [place] Start: 05-01-2021 End: 09-17-2022 Alcohol intake Current non-drinker of alcohol (finding) [facility] Work Phone: Tobacco smoking status Never [facility] Start: 1950 Sex Assigned At Female F [facility] [place] Start: 08-20-2023 End: 10-26-2024 History of Social function [facility] How often to you hav e a drink containing alcohol? Never [facility] Start: 08-20-2023 Education 13 [facility] Start: 06-12-2023 Alcohol Comment Caffeine intak e: 1 cup day of soda, occasional diet coke [facility] Work Phone: Start: 11-26-2024 End: 11-29-2024 Sex Female (finding) [facility] Medical Equipment Procedure Code Equipment Code Equipment Origin al Text Equipment Identifier Dates Closure [employer] - [id number] [facility] FDA Start: 05-19-2019 Functional Status Date Assessment Result Facility 02-27-2022 Functional Status N/A [facility] Clinical Notes 03-26-2021 to 10-26-2024 [...] analytical performance characteristics [place] It has not been cleared or [...] in PM on an empty stomach. DUARTE; I AND [employer] 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 We discussed [...] after previous discussions. 5. BMI 40.0-44.9, adult (CMS/HCC) Defines the morbid obesity documented in this encounter [facility] 08-23-2024 History of Present illness Narrative Images from the original note were not included. Angel Russ, DO Obstetrics and Gynecology Patricia Blake 1950 08/23/24 [id number] Yearly Wellness Exam Chief Complaint Patient presents with Gynecologic Exam Medicare yearly. LMP: 2003 HRT: None Last pap 08-14-22 neg. Last mammogram 10-02-23 [facility]. Denies breast, urinary, or bowel concerns. Visit [...] in PM on an empty stomach. DUARTE; I AND [employer] or [employer] brands only 180 tablet 1 metFORMIN (Glucophage) [...] PLACEMENT 12/04/2016 CORONARY STENT PLACEMENT 05/2019 CYSTOSCOPY CA BREAST REDUCTION CA LAP,CHOLECYSTECTOMY Past Medical History: Diagnosis Date Arthritis Atrial fibrillation with rapid ventricular response ([facility]/HCC) Bilateral fibrocystic breast changes Bronchitis Cataracts, bilateral Chronic fatigue Congestive heart failure (CHF) ([facility]/HCC) Depression ([facility]/HCC) Diabetes (CMS/HCC) Diabetic nephropathy associated with type 2 diabetes mellitus (HCC) ([facility]/HCC) H/O psychiatric care History of being hospitalized 06/2021 H congestive heart failure, 3 days Hx of psychiatric care Hyperlipidemia (CMS/HCC) Hypertension (CMS/HCC) Hypothyroid ([facility]/HCC) ESS Insulin resistance Irritable bowel syndrome with both constipation and diarrhea LAD (lymphadenopathy) Ostial LAD lesion 95% Measles SD (myocardial infarction) ([facility]/HCC) x2 Mild pulmonary hypertension ([facility]/HCC) Mumps Nephrolithiasis Obesity Pneumonia PTSD (post-traumatic stress disorder) ([facility]/HCC) Serum calcium elevated Stage 3 chronic kidney disease (HCC) ([facility]) ROS Const: Denies appetite change, fever, chills. [...] costovertebral angle tenderness, no obvious scoliosis/kyphosis. 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 documented in this encounter [facility] 07-21-2024 History of Present illness Narrative Images from the original note were not included. Patient ID: Patricia Blaek is a 74 y.o. female who presents [...] in PM on an empty stomach. DUARTE; I AND [employer] or [employer] brands only 180 tablet 1 metFORMIN (Glucophage) [...] 2. Stage 3b chronic kidney disease (HCC) ([facility]) Chronic problem, but no clinically manifested complications, monitor longitudinally. 3. Type 2 diabetes mellitus with stage 3b chronic kidney disease, without long-term current use of insulin (HCC) ([facility]) Chronic problem, stable, last labs to goal back in March. - metFORMIN (Glucophage) 1000 MG tablet; Take 1 tablet (1,000 mg) by mouth in the morning and 1 tablet (1,000 mg) in the evening. Take with meals. Dispense: 180 tablet; Refill: 1 4. Microalbuminuric diabetic nephropathy ([facility]) Chronic problem, defining an aspect the nephropathy, [...] stratification for cardiovascular disease. 5. Hyperlipidemia, mixed ([facility]) Chronic problem requiring dual treatment. Aware of [...] Refill: 1 6. 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 ([facility]) Chronic problem, stable, comanaged with Cardiology. No evidence of angina or anginal equivalents. 7. Pulmonary hypertension ([facility]) In prescribing a renewal to their current [...] the morbid obesity documented in this encounter [facility] 05-12-2024 History of Present illness Narrative [...] analytical performance characteristics have been determined by [employer] [place]. It has not been cleared or [...] 0.55 - 1.02 mg/dL Final TBH EGFR-AF LAO 03/12/2024 51 (L) >=60 Final TBH EGFR-NON AF LAO 03/12/2024 42 (L) >=60 Final BUN CREATININE [...] change in test platforms from the Bravo Dinkey Locomotive Engineer to the Marie alvarez c503 may have shifted HbA1c results compared to historical results. Based on laboratory validation testing conducted at [facility], the Marie platform relative to the Bravo [...] equation in the estimation of LDL-C. Grayson SS et al. JAMIE. 2013;310(19): 2722-0127 (http://education.XTRM/faq/JBO174) CHOL/HDLC RATIO 02/04/2024 3.9 <5.0 (calc) Final [...] in PM on an empty stomach. DUARTE; I AND [employer] or [employer] brands only 180 tablet 1 metFORMIN (Glucophage) [...] major depressive disorder, in partial remission (HCC) ([facility]) Chronic problem, stable In prescribing a renewal [...] 5 2. Chronic post-traumatic stress disorder (PTSD) ([facility]) Chronic problem, stable This is helping her [...] need to monitor longitudinally. 4. Morbid obesity ([facility]) Get reviewed the importance of some diet [...] with an update. 5. BMI 40.0-44.9, adult ([facility]) Defines the morbid obesity 6. Hyperuricemia Chronic [...] tablet; Refill: 0 documented in this encounter [facility] 05-04-2024 History of Present illness Narrative [...] were performed or ordered by another health care program resident. These are documented in the electronic health record. These were reviewed with the patient. Telephone on 04/13/2024 Component Date Value Ref Range Status T3, TOTAL 04/13/2024 137 76 - 181 ng/dL Final T3 REVERSE, LC/MS/MS 04/13/2024 17 8 - 25 ng/dL Final Comment: This test was developed and its analytical performance characteristics have been determined by [employer] [place]. It has not been cleared or [...] 0.55 - 1.02 mg/dL Final TBH EGFR-AF LAO 03/12/2024 51 (L) >=60 Final TBH EGFR-NON AF LAO 03/12/2024 42 (L) >=60 Final BUN CREATININE [...] change in test platforms from the Bravo Dinkey Locomotive Engineer to the Marie alvarez c503 may have shifted HbA1c results compared to historical results. Based on laboratory validation testing conducted at [facility], the Marie platform relative to the Bravo [...] factors. LDL-C is now calculated using the Corina calculation, which is a validated novel method providing better accuracy than the Friedewald equation in the estimation of LDL-C. Grayson CALL et al. JAMIE. 2013;310(19): 2996-0279 (http://education.[employer].com/faq/TNX388) CHOL/HDLC RATIO 02/04/2024 3.9 <5.0 (calc) Final [...] in PM on an empty stomach. DUARTE; I AND [employer] or [employer] brands only 180 tablet 1 metFORMIN (Glucophage) [...] I discussed with the patient or their textile designs sales representative, their fatigue issues. We discussed [...] nebulizer. We did make this also a wbpe-py-ogwf visit to get that part of the coverage out of the way while she is here. I certify that I had a xehf-km-nnfu encounter with this patient at todays office visit. Due to this medical condition the patient requires DME. I certify that based on my findings The DME ordered is medically necessary for this patient. This has been discussed with the patient and/or their textile designs sales representative and mutually agreed upon. 7. [...] help venous insufficiency. documented in this encounter [facility] 04-28-2024 Telephone encounter Note Called Lora. Discussed to hold tonight's metformin. Discussed how to take. Stay hydrated. Call tomorrow if not better. [facility] 04-28-2024 Miscellaneous Notes Called Lora. Discussed [...] she can have documented in this encounter [facility] 04-28-2024 Telephone encounter Note Lora called to move her appointment she has for tomorrow to next week. She states she is having a gout flare and can not get down her stairs to get to her car. She is asking if Dr. Laguna could send something in for her for the gout so she can have [facility] 10-15-2023 History of Present illness Narrative Patient ID: Patricia Blake is a 73 y.o. female who presents for: Pt here today to review his/hers thyroid labs and any medication changes needed. Fatigue: Present, worsened, hasn't been sleeping well, brother was killed in an accident in Dec Weight Gain: Absent Inability to lose weight: [...] analytical performance characteristics have been determined by [employer] [place]. It has not been cleared or [...] in PM on an empty stomach. DUARTE; I AND [employer] or [employer] brands only metFORMIN (GLUCOPHAGE) 1,000 mg, Oral, [...] renewal of their medication. (Utilizing the original 1994/1996 guidelines or the 2020 new office/outpatient code guidelines for selecting the level of E/M service, In both sets of guidelines, prescription drug management appears in the moderate medical decision making (MDM) row. 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 We discussed [...] depressive disorder, in partial remission (HCC) (CMS/HCC) - buPROPion SR (Wellbutrin SR) 150 MG [...] this time. Chronic post-traumatic stress disorder (PTSD) (CMS/HCC) Somewhat worsened as related to the above. documented in this encounter [facility] 10-15-2022 Note PROCEDURE: XR FOOT R [...] authenticated by: KEVIN STEWART Date: 2022-10-15 13:30 [facility] 09-17-2022 History of Present illness Narrative 1017 - Lexiscan started. Pt tolerating well so far. 1020 - Continues to tolerate procedure with no complaints. 1022 - Pt tolerated procedure without complaints. Provided with snack at this time. documented in this encounter [facility] [employer] Work Phone: 02-27-2022 Hospital Discharge instructions Patient Education [...] fried and sweet foods. General instructions Take kakv-kam-grrpger and prescription medicines only as told by [...] 06/21/2010 Document Revised: 12/16/2019 Document Reviewed: 09/10/2018 [employer] Patient Education 2020 [employer] Follow Up Care 02/06/2022 15:12:13 With:LUOANN BATISTA, LILIAM Ruiz, URL Address: [address] [place] [address] When: Unknown [facility] [employer] 10-08-2021 Note Pulmonary Medicine COVID-19 Frequently Asked Questions COVID-19 (coronavirus disease) is an infection that is caused by a large family of viruses. Some viruses cause illness in people and others cause illness in animals like camels, cats, and bats. In some cases, the viruses that cause illness in animals can spread to humans. Where did the coronavirus come from? In August 2019, [place] told the World Health Organization (WHO) of several cases of lung disease (human respiratory illness). These cases were linked to an open seafood and livestock market in the city of [facility]. The link to the seafood and livestock [...] virus naming World Health Organization (WHO): www.who.int/emergencies/diseases/ mynyr-stzsrxinayf-0071/technical- guidance/noirpw-fiw-ycrcequybmz-d isease-(covid-2019)-fjy-coc-qrzsr -oaba-agjnck-za Who is at risk for complications from [...] Samples may in (more content not included)... [facility] 03-26-2021 Note HPI Staff Pt [...] EST [address] [address]- Additional Instructions: Patient Education Calorie Counting for Weight Loss Overactive Bladder, Adult IMayra personally scribed for Dr. Castle on 03/26/2021 10:53:05. . Documentation recorded by the glennyibMayra ruiz, accurately reflects the services(s) I performed and [...] Glucose Urine Dipstic (more content not included)... [facility] Comment on above: Result Comment: Elec tronically Signed By: Niru CASTLE MD\.br\Date and Time Signed: 03/26/21 10:56 EDT\.br\Electronically Co-Signed By: Mayra Robert MA\.br\Date and Time Co-Signed: 03/26/21 10:53 EDT Evaluation + Plan note No data available for this section [facility] Evaluation note Diagnosis Atrial fibrillation, new onset (HCC) Atrial fibrillation documented in this encounter [employer] Phone: evaluation note* Diagnosis Atrial fibrillation, new onset (HCC) Atrial fibrillation Essential hypertension Unspecified essential hypertension Anemia, unspecified type documented in this encounter [employer] Phone: evaluation note* Diagnosis Atrial fibrillation, new onset (HCC) Atrial fibrillation documented in this encounter [employer] Phone: evaluation note* Diagnosis Atrial fibrillation, new onset (HCC) Atrial fibrillation documented in this encounter [employer] Phone: evaluation note* Diagnosis Abnormal EKG Nonspecific abnormal electrocardiogram (ECG) (EKG) Chest pain, unspecified type documented in this encounter [facility] Work Phone: evaluation noteNo assessment information available [facility] Work Phone: Evaluation note* Diagnosis Mild cognitive impairment with memory loss- Primary Mild cognitive impairment, so stated ESS (euthyroid sick syndrome) Euthyroid sick syndrome Acquired hypothyroidism (CMS/HCC) Unspecified hypothyroidism Chronic fatigue syndrome Recurrent major depressive disorder, in partial remission (HCC) (CMS/HCC) Chronic post-traumatic stress disorder (PTSD) (CMS/HCC) documented in this encounter [facility]* Diagnosis Essential hypertension Unspecified essential hypertension Stage 3b chronic kidney disease (HCC) ([facility]/HCC) Type 2 diabetes mellitus with stage 3b chronic kidney disease, without long-term current use of insulin (HCC) ([facility]) Microalbuminuric diabetic nephropathy ([facility]) Hyperlipidemia, mixed ([facility]) Mixed hyperlipidemia 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 ([facility]/HCC) Pulmonary hypertension ([facility]/HCC) Other chronic pulmonary heart diseases Morbid obesity (CMS/HCC) Morbid obesity BMI 40.0-44.9, adult ([facility]/HCC) documented in this encounter [facility]* Diagnosis Recurrent major depressive disorder, in partial remission (HCC) ([facility]/HCC) Chronic post-traumatic stress disorder (PTSD) ([facility]) Mild cognitive impairment with memory loss Mild cognitive impairment, so stated Morbid obesity ([facility]/HCC) Morbid obesity BMI 40.0-44.9, adult ([facility]) Hyperuricemia Other abnormal blood chemistry Acute idiopathic [...] encounter [facility]* Diagnosis Acquired hypothyroidism (CMS/HCC)- Primary Unspecified hypothyroidism ESS (euthyroid sick syndrome) Euthyroid sick syndrome Chronic fatigue Other malaise and fatigue Morbid obesity (CMS/HCC) Morbid obesity BMI 40.0-44.9, adult (CMS/HCC) Dyspnea on exertion Other dyspnea and respiratory abnormality Pulmonary hypertension (CMS/HCC) Other chronic pulmonary heart diseases Paroxysmal atrial fibrillation (CMS/HCC) Atrial fibrillation Stage 3b chronic kidney disease (HCC) (CMS/HCC) Iron deficiency anemia, unspecified iron deficiency anemia type Chronic venous insufficiency of lower extremity Recurrent major depressive disorder, in partial remission (HCC) (CMS/HCC) Chronic post-traumatic stress disorder (PTSD) ([facility]/HCC) Mild cognitive impairment with memory loss Mild cognitive impairment, so stated Morbid obesity (CMS/HCC) Morbid obesity BMI 40.0-44.9, adult (CMS/HCC) documented in this encounter [facility]* Diagnosis Acquired hypothyroidism (CMS/HCC)- Primary Unspecified hypothyroidism Chronic fatigue Other malaise and fatigue ESS (euthyroid sick syndrome) Euthyroid sick syndrome Morbid obesity (CMS/HCC) Morbid obesity BMI 40.0-44.9, adult ([facility]) Encounter for Medicare annual wellness exam Advance directive in chart Encounter for screening for other disorder Screening for alcohol problem Screening for alcoholism Morbid obesity (CMS/HCC) Morbid obesity BMI 40.0-44.9, adult ([facility]/HCC) Type 2 diabetes mellitus with stage 3a chronic kidney disease, without long-term current use of insulin (HCC) ([facility]/HCC) Stage 3b chronic kidney disease (HCC) ([facility]/HCC) Essential hypertension Unspecified essential hypertension Microalbuminuric diabetic nephropathy (CMS/HCC) Hyperlipidemia, mixed ([facility]) Mixed hyperlipidemia documented in this encounter [facility] No data available for this section [facility] Summary Purpose Family History No Family History Records FoundNo Family History Records FoundNo Family History Records FoundNo Family History Records FoundNo Family History Records FoundNo Family History Records FoundNo Family History Records FoundNo Family History Records Found Advance Directives No Advanced Directives Records FoundDocuments on File Type Date Recorded Patient Preliminary School Psychologist Expl anation Advance Directives and Livin g Will 05/19/2019 6:06 AM Latest Code Status on File Code Status Date Activated Date Inactivated Comments Full Code 05/19/2019 7:44 AM Documents on File Type Date Recorded Patient Preliminary School Psychologist Expl anation Advance Directives and Living Will Power of Aerologist Documents on File Type Date Recorded Patient Preliminary School Psychologist Expl anation Advance Directives and Living Will Power of Aerologist Documents on File Type Date Recorded Patient Preliminary School Psychologist Expl anation ACP-Advance Directive ACP-Power of Aerologist Documents on File Type Date Recorded Patient Preliminary School Psychologist Expl anation ACP-Advance Directive ACP-Power of Aerologist Advance Directive Response Recorded Date/ Time Advance Directives No July 9:50am Advance Directive Response Recorded Date/ Time Advance Directives No July 10:50am Documents on File Type Date Recorded Patient Preliminary School Psychologist Expl anation Advance Directives and Living Will 04/26/2019 2019-04-26 DNR Advance Directives and Living Will 04/19/2019 [id number] Wi ll Discharge Instructions * Instructions* Candace [...] without complication (HCC) Procedures EKG 12 Lead Vigesaa, Pacheco S, MD [address] [place] [address] Status Reason Specialty Diagnoses / Procedures Referre d By Contact Referred To Contact Open Cardiology Diagnoses Atrial fibrillation, new onset (HCC) Procedures EKG 12 Lead Pacheco Carter MD [address] [place] [address] Specialty Diagnoses / Procedures Referred By Contac t Referred To Contact Cardiology Diagnoses Atrial fibrillation, new onset (HCC) Procedures EKG 12 Lead Pacheco Carter MD [address] [place] [address] Referral ID Status Reason Start Date Expiration Date Visits Re quested Visits Authorized [id number] Open 03/12/2022 03/12/2023 1 1 Specialty Diagnoses / Procedures Referred By Contac t Referred To Contact Cardiology Diagnoses Abnormal EKG Chest pain, unspecified type Procedures Stress test, Pacheco Santo MD [address] [place] [address] Referral ID Status Reason Start Date Expiration Date Visits Re quested Visits Authorized [id number] Closed 09/17/2022 09/17/2023 4 4 Assessments Diagnosis [...] cologaurd + cologaurd Chief Complaint Admit Date November 25, 2024 2:1 0pm Chief Complaint Admit Date November 25, 2024 2:1 0pm Unknown November 28, 2024 12: 06am Additional Source Comments INFORMATION SOURCE (unrecogn ized section and content) DATE CREATED AUTHOR 06/09/2019 [facility] DATE CREATED AUTHOR AUTHOR'S ORGANIZ ATION 11/17/2021 [facility] DATE CREATED AUTHOR AUTHOR'S ORGANIZ ATION 02/28/2022 [facility] DATE CREATED AUTHOR AUTHOR'S ORGANIZ ATION 09/20/2022 [facility] DATE CREATED AUTHOR AUTHOR'S ORGANIZ ATION 12/13/2022 [facility] [place] DATE CREATED AUTHOR AUTHOR'S ORGANIZ ATION 10/25/2024 [facility] DATE CREATED AUTHOR AUTHOR'S ORGANIZ ATION 11/11/2024 [facility] EPIC DATE CREATED AUTHOR AUTHOR'S ORGANIZ ATION 11/29/2024 [facility] Niru Carter MD - 05/18/2019 7:40 AM EDT H&P Notes (unrecognized sect ion and content) Niru Carter M.D. [facility] [place] [address] May 17, 2019 Aashish Laguna MD [address] [place] [address] RE: Patricia Blake : [address] [...] FAMILY HISTORY: Mother at 73 of an SD. Father of SD at 76. Three brothers at 64, 55, and 76. One sister had an SD at 79. SOCIAL HISTORY: She is 69 years old. Never . No children. Lives in [place]. 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 She has not been exercising because of [...] Lexiscan Cardiolite stress test in April at [facility] showing anterior wall ischemia or infarct, intermediate [...] contact me. Sincerely, NIRU CARTER [id number] Doc#: [id number] documented in this encounter Reason for Visit (unrecogniz ed section and content) Status Reason Specialty Diagnoses / Procedures Re ferred By Contact Referred To Contact Closed Cardiology Diagnoses Unspecified atrial fibrillation Procedures CA CARDIOVERSION ELECTIVE ARRHYTHMIA EXTERNAL Pacheco Carter MD [address] [place] [address] [facility] [address] [place] [address] Specialty Diagnoses / Procedures Referred By Preston demarco Referred To Contact Diagnoses Atrial fibrillation, new onset (HCC) SOB (shortness of breath) I48.91 (ICD-10-CM) - Atrial fibrillation, new onset (HCC) Procedures Holter Monitor 48 Hour CA CARDIOVERSION ELECTIVE ARRHYTHMIA EXTERNAL [id number] - CA CARDIOVERSION ELECTIVE ARRHYTHMIA EXTERNAL Pacheco Carter MD [address] [place] [address] Referral ID Status Reason Start Date Expiration Date Visits Re quested Visits Authorized [id number] Closed 05/02/2021 05/02/2022 1 1 Specialty Diagnoses / Procedures Referred By Preston demarco Referred To Contact Cardiology Diagnoses Abnormal EKG Chest pain, unspecified type Procedures Stress test, lexiscan Vigesaa, Pacheco S, MD [address] [place] [address] Referral ID Status Reason Start Date Expiration Date Visits Re quested Visits Authorized [id number] Closed 09/17/2022 09/17/2023 4 4 Reason Comments Hypothyroidism Reason Comments Hypertension Hyperlipidemia Diabetes Reason Comments Anxiety Sleeping Problem Reason Comments Gynecologic Exam Medicare yearly.LMP: 2004HRT: NoneLast pap 08-14-22 neg.Last mammogram 10-02-23 [facility].Denies breast, urinary, or bowel concerns. Care Teams (unrecognized sec tion and content) [employer] General Supervisor Relationship Specialty Start Date End Date Aashish Laguna MD PCP - General 11/14/16 [employer] General Supervisor Relationship Specialty Start Date End Date Aashish Laguna MD PCP - General 11/14/16 [employer] General Supervisor Relationship Specialty Start Date End Date Aashish Laguna MD PCP - General 11/14/16 [employer] General Supervisor Relationship Specialty Start Date End Date Aashish [...] October 02, 2023 End: October 02, 2023 [employer] General Supervisor Relationship Specialty Start Date End Date Aashish Laguna MD [address] [phone] (Fax) PCP - ACO Reach 01/30/23 Aashish Laguna MD [address] [place] [phone] PCP - General Family Medicine 03/20/23 Niru Carter MD [address] [place] [address] Referring Physician Cardiology 08/20/23 [employer] General Supervisor Relationship Specialty Start Date End Date Aashish Laguna MD [address] [place], [place] [phone] PCP - ACO Reach 01/30/23 Aashish Laguna MD [address] [place] [phone] PCP - General Family Medicine 03/20/23 Niru Carter MD [address] [phone] Referring Physician Cardiology 08/20/23 [employer] General Supervisor Relationship Specialty Start Date End Date Aashish Laguna MD [address] [place] [address] (Fax) PCP - ACO Reach 01/30/23 Aashish Laguna MD [address] [place] [address] (Fax) PCP - General Family Medicine 03/20/23 Niru Carter MD [address] [place] [address] Referring Physician Cardiology 08/20/23 Niru Castle MD [address] [place] [address] Referring Physician Urology 12/02/23 [employer] General Supervisor Relationship Specialty Start Date End Date Aashish Laguna MD [address] [place] [address] (Fax) PCP - ACO Reach 01/30/23 Aashish Laguna MD [address] [place] [address] PCP - General Family Medicine 03/20/23 Niru Carter MD [address] [phone] Referring Physician Cardiology 08/20/23 Niru Castle MD [address] [place] [address] Referring Physician Urology 12/02/23 [employer] General Supervisor Relationship Specialty Start Date End Date Aashish Laguna MD [address] [place] [address] PCP - ACO Reach 01/30/23 Aashish Laguna MD [address] [place] [phone] PCP - General Family Medicine 03/20/23 Niru Carter MD [address] [place], [place] [phone] Referring Physician Cardiology 08/20/23 Niru Castle MD [address] [place] [address] Referring Physician Urology 12/02/23 [employer] General Supervisor Relationship Specialty Start Date End Date Aashish Laguna MD [address] [place] [address] (Fax) PCP - ACO Reach 01/30/23 Aashish Laguna MD [address] [place] [address] PCP - General Family Medicine 03/20/23 Niru Carter MD [address] [place], [place] [phone] Referring Physician Cardiology 08/20/23 Niru Castle MD [address] [place] [address] Referring Physician Urology 12/02/23 [employer] General Supervisor Relationship Specialty Start Date End Date Aashish Laguna MD [address] [place] [address] PCP - ACO Reach 01/30/23 Aashish Laguna MD [address] [place] [phone] PCP - General Family Medicine 03/20/23 Niru Carter MD [address] [place] [address] Referring Physician Cardiology 08/20/23 Niru Castle MD [address] [place] [address] Referring Physician Urology 12/02/23 [employer] General Supervisor Relationship Specialty Start Date End Date Aashish Laguna MD [address] [place] [address] (Fax) PCP - ACO Reach 01/30/23 Aashish Laguna MD [address] [place] [phone] PCP - General Family Medicine 03/20/23 Niru Carter MD [address] [place], [place] [phone] Referring Physician Cardiology 08/20/23 Niru Castle MD [address] [place] [address] Referring Physician Urology 12/02/23 [employer] General Supervisor Relationship Specialty Start Date End Date Aashish Laguna MD [address] [place] [address] (Fax) PCP - ACO Reach 01/30/23 Aashish Laguna MD [address] [place] [phone] PCP - General Family Medicine 03/20/23 Niru Carter MD [address] [place], [place] [phone] Referring Physician Cardiology 08/20/23 Niru Castle MD [address] [place] [address] Referring Physician Urology 12/02/23 [employer] General Supervisor Relationship Specialty Start Date End Date Aashish Laguna MD [address] [place] [address] (Fax) PCP - ACO Reach 01/30/23 Aashish Laguna MD [address] [place] [phone] PCP - General Family Medicine 03/20/23 Niru Carter MD [address] [place], [place] [phone] Referring Physician Cardiology 08/20/23 Niru Castle MD [address] [place] [address] Referring Physician Urology 12/02/23 [employer] General Supervisor Relationship Specialty Start Date End Date Aashish Laguna MD [address] [place] [address] (Fax) PCP - ACO Reach 01/30/23 Aashish Laguna MD [address] [place] [address] PCP - General Family Medicine 03/20/23 Niru Carter MD [address] [place], [place] [phone] Referring Physician Cardiology 08/20/23 Niru Castle MD [address] [place] [address] Referring Physician Urology 12/02/23 [employer] General Supervisor Relationship Specialty Start Date End Date Aashish Laguna MD [address] [place] [address] PCP - ACO Reach 01/30/23 Aashish Laguna MD [address] [place] [address] PCP - General Family Medicine 03/20/23 Niru Carter MD [address] [place] [address] Referring Physician Cardiology 08/20/23 Niru Castle MD [address] [place] [address] Referring Physician Urology 12/02/23 Team Status: Inactive Member Role Status Dates Aashish Laguna MD Primary Care Provider Active Start: November 25, 2024 End: November 25, 2024 Angel Russ DO Attending Provider Active Start: November 25, 2024 End: November 25, 2024 Team Status: Inactive Member Role Status Dates Abdoulaye Brothers MD Attending Provider Active St art: November 28, 2024 End: November 28, 2024 Goals (unrecognized section and content) Goals [...] BE BASED ON THE PRIMARY CLINICAL RECORDS. [employer] [facility]. provides no warranty or guarantee of the accuracy or completeness of information in this document.
--- NOTE | 2024-11-29 09:44 | P.PN_ITS ---
Progress Note: Subjective Subjective Interval history: Patient states her pain is somewhat better but she has not ambulated on her foot yet, significant pain on palpation Exam Constitutional Vital Signs, click to edit/add: Last Vital Signs Temp 97.6 F 11/29/24 07:50 Pulse 79 11/29/24 08:00 Resp 16 11/29/24 08:00 BP 116/76 11/29/24 07:50 Pulse Ox 96 11/29/24 07:50 O2 Del Method Room Air 11/29/24 07:50 Documenting provider has reviewed patient's vital signs: yes Common normals: no apparent distress Chest Common normals: inspection of chest normal Respiratory Common normals: normal respiratory effort and no retractions Cardio Common normals: regular rate and regular rhythm GI Common normals: negative for Normal to inspection, nondistended, normoactive bowel sounds present (Morbid obesity) Extremity Common normals: abnormal to inspection (Mild erythema right great toe with significant pain on palpation) Progress Note: Objective Labs Labs: Short CBC 11/29/24 Range/Units 05:58 WBC 9.9 (4.0-11.0) 10^3/uL Hgb 10.1 L (12.0-16.0) g/dL Hct 32.3 L (36.0-48.0) % Plt Count 175 (150-450) 10^3/uL BMP 11/29/24 05:58 Sodium 146 H Potassium 4.0 Chloride 111 H Carbon Dioxide 25.6 BUN 19.0 H Creatinine 0.89 Glucose 108 H Calcium 8.9 Cardiac Enzymes 11/29/24 Range/Units 05:58 Total Creatine Kinase 129 (26-192) U/L Progress Note: A&P Assessment and Plan (1) Atrial fibrillation with RVR: (2) Rhabdomyolysis: Qualifiers: Rhabdomyolysis type: non-traumatic Qualified Code(s): M62.82 - Rhabdomyolysis (3) Gout flare: Qualifiers: Gout etiology: idiopathic Gout site: foot Laterality: right Qualified Code(s): M10.071 - Idiopathic gout, right ankle and foot (4) Acute UTI (urinary tract infection): (5) Diabetes mellitus: Qualifiers: Diabetes mellitus type: type 2 Diabetes mellitus terminal superintendent insulin use: without terminal superintendent use Diabetes mellitus complication status: with kidney complications Diabetes mellitus complication detail: with chronic kidney disease Chronic kidney disease stage: stage 3 (moderate) Chronic kidney disease stage 3 subtype: stage 3a (GFR 45-59) Qualified Code(s): E11.22 - Type 2 diabetes mellitus with diabetic chronic kidney disease; N18.31 - Chronic kidney disease, stage 3a (6) Benign essential hypertension: (7) Chronic heart failure with preserved ejection fraction (HFpEF): (8) Hypothyroidism (acquired): (9) Interstitial lung disease: (10) CAD (coronary artery disease): Qualifiers: Coronary Disease-Associated Artery/Lesion type: [place] artery [place] vs. transplanted heart: [place] heart Associated angina: without angina Qualified Code(s): I25.10 - Atherosclerotic heart disease of [place] coronary artery without angina pectoris (11) CKD stage 3a, GFR 45-59 ml/min: (12) Depression: (13) Hypercholesterolemia: Plan Atrial fibrillation with RVR: Heart rate still elevated at some times, maintain anticoagulation, patient without dyspnea Rhabdomyolysis: Elevated on admission but improved to baseline Gout flare: Pain is better, not resolved, maintain current medications Acute UTI (urinary tract infection): Continue current medications Diabetes mellitus: Insulin sliding scale maintain home medications Benign essential hypertension: Stable so far, maintain current medications Chronic heart failure with preserved ejection fraction (HFpEF): Check on echocardiogram Hypothyroidism (acquired): Maintain current medications Interstitial lung disease: Stable CAD (coronary artery disease) due to hypercholesterolemia: No active chest pain, maintain current medications CKD stage 3a, GFR 45-59 ml/min: Improved to baseline Depression-maintain current medications Admission status: Patient admitted with the acute rhabdomyolysis secondary to fall secondary to acute UTI complicated by atrial fibrillation with rapid ventricular response, off Cardizem drip, medically necessary treatment spanning 2 midnights. Inpatient status Urinary Catheter Management Urinary Catheter Management Urethral: Cath placed during this visit: yes Urethral indwelling: Yes Reason for continuing: measure accurate output Insertion date: 11/28/24 Insertion time: 11:40
--- NOTE | 2024-11-29 09:50 | CM.NOTE ---
Important message from Medicare discussed with pt, pt verbalizes understanding and signs paper. Original given to pt and copy placed on pt's chart.
--- NOTE | 2024-11-29 09:52 | CM.NOTE ---
PT evaluated pt and recommend skilled therapy at discharge, discussed discharge planning and recommendations with pt. Pt verbalizes she has 13 stairs to get into her apartment and is concerned with the ongoing pain to foot and her weakness. Pt would like to see if [facility] would take her for skilled therapy and 2nd choice would be [facility].
--- NOTE | 2024-11-29 09:55 | CM.NOTE ---
Called [facility] to check on bed availability for skilled. E-mailed Case Management referral, physician notes, face sheet to Jessica in admissions.
[2024-11-29 11:40] LABS: Glucometer 146 mg/dL (74-106)
[2024-11-29] MEDS: DILTIAZEM HCL 120 MG CAP.ER.24H PO ×2 (11:42→23:24)
[2024-11-29] MEDS: INSULIN ASPART 300 UNIT/3 ML PEN SUBQ ×3 (11:44→21:18)
[2024-11-29 16:34] LABS: Glucometer 214 mg/dL (74-106)
[2024-11-29 20:40] LABS: Glucometer 182 mg/dL (74-106)
[2024-11-29] MEDS: ATORVASTATIN CALCIUM 10 MG TABLET PO (21:03)
[2024-11-29] MEDS: CEFTRIAXONE 1,000 MG in 0.9 % SODIUM CHLORIDE 50 ML 100 MG IV (21:03)
[2024-11-30] VITALS (7 sets, daily range): BP systolic 113–156; BP diastolic 60–83; PULSE 77–118; TEMP 36.3–36.6; O2SAT 94–97
[2024-11-30] MEDS: NYSTATIN 15 GM POWDER 1 APPLIC TOPICAL ×3 (05:36→21:02)
[2024-11-30 05:53] LABS: Basophils Percent Auto 0.2 % (0.2-2.0); Eosinophils Absolute Auto 0.1 10^3/uL (0.0-0.7); Eosinophils Percent Auto 0.5 % (0.9-7.0); Hematocrit 32.8 % (36.0-48.0); Hemoglobin 10.1 g/dL (12.0-16.0); Immature Granulocytes Abs Auto 0.04 10^3/uL (0.00-0.03); Immature Granulocytes Pct Auto 0.4 % (0.0-0.5); Lymphocytes Absolute Auto 2.4 10^3/uL (1.2-3.8); Lymphocytes Percent Auto 23.2 % (20.5-60.0); Mean Corpuscular HGB Conc 30.8 g/dL (29.9-35.2); Mean Corpuscular Hemoglobin 27.2 pg (26.7-34.0); Mean Corpuscular Volume 88.4 fL (81.0-99.0); Mean Platelet Volume 12.5 fL (9.5-13.5); Monocytes Absolute Auto 0.5 10^3/uL (0.3-0.8); Monocytes Percent Auto 4.7 % (1.7-12.0); Neutrophils Absolute Auto 7.4 10^3/uL (1.4-6.5); Platelet Count 202 10^3/uL (150-450); Red Blood Count 3.71 10^6/uL (4.20-5.40); Red Cell Distribution Width 16.2 % (11.0-15.0); White Blood Count 10.5 10^3/uL (4.0-11.0)
[2024-11-30 06:23] LABS: Anion Gap 15.1; BUN Creatinine Ratio 23.9; Calcium 9.3 mg/dL (8.5-10.1); Chloride 111 mmol/L (98-107); Creatine Kinase 61 U/L (26-192); Estimated GFR (African America >60 (>=60 mL/min/1.73m^2); Estimated GFR (Non-African Ame >60 (>=60 mL/min/1.73m^2); Glucose 115 mg/dL (74-106); Myoglobin 68 ng/mL (9-82); Potassium 4.1 mmol/L (3.5-5.1); Sodium 145 mmol/L (136-145)
[2024-11-30] MEDS: PREDNISONE 20 MG TABLET 50 MG PO (08:45)
[2024-11-30] MEDS: GEMFIBROZIL 600 MG TABLET PO ×2 (08:45→21:01)
[2024-11-30] MEDS: ALLOPURINOL 300 MG TABLET PO (08:45)
[2024-11-30] MEDS: APIXABAN 5 MG TABLET PO ×2 (08:45→21:01)
[2024-11-30] MEDS: LEVOTHYROXINE SODIUM 75 MCG TABLET 150 MCG PO (08:45)
[2024-11-30] MEDS: BUPROPION HCL 150 MG SR TABLET 12H PO ×2 (08:45→21:01)
[2024-11-30] MEDS: LIOTHYRONINE SODIUM 5 MCG TABLET PO ×2 (08:45→21:01)
[2024-11-30] MEDS: METOPROLOL TARTRATE 100 MG TABLET PO ×2 (08:46→21:01)
[2024-11-30] MEDS: ISOSORBIDE MONONITRATE 30 MG TAB.ER.24H PO (08:46)
[2024-11-30] MEDS: ACETAMINOPHEN 325 MG TABLET 650 MG PO (08:47)
--- NOTE | 2024-11-30 10:36 | PT.DAILY ---
Physical Therapy Daily Note PT Daily Note/Assess Start: 11/30/24 10:27 Freq: Status: Active Protocol: Document 11/30/24 10:15 OLIVIA (Rec: 11/30/24 10:36 OLIVIA [id number]) Physical Therapy Daily Note/Assessment Time In/Time Out Time In 10:15 Time Out 10:25 Subjective Subjective Patient reports pain in R foot but says it is getting better but there is still some soreness in R foot that increases with weight bearing activities. Therapeutic Activity Time Therapeutic Activity 10 Minutes (minutes) Therapeutic Activity 1 Units Therapeutic Activity Treatment Bed Mobility Ability Independent Chair Transfer Standby Assistance Ability Therapeutic Activity Patient completed transfer from bed to chair with RW Comments SBA with limited gait with decreased tolerance to WB of R LE due to increased pain. LAQ x 10 Hip abd x 1 Hip adduction squeezes x 10 HR/TR x 10Marches x 10 Total Physical Therapy Time Total Therapy 10 Minutes Total Physical 1 Therapy Units Summary Daily Note Summary Patient demonstrates increased ability to weight bear on R foot with less pain. Does report some pain and limited gait with weight bearing activities but states that it is getting better. Patient in chair with call light and all needs met post treatment. Recommend SNF at discharge to increase strength in B LE to improve functional activities.
[2024-11-30] MEDS: DILTIAZEM HCL 120 MG CAP.ER.24H PO ×2 (11:49→22:00)
--- NOTE | 2024-11-30 11:52 | CM.NOTE ---
Rounds made with Dr. Hawkins, pt continues with pain to foot and difficulty with ambulation. Dr. Hawkins will start [place] today. No discharge.
[2024-11-30] MEDS: COLCHICINE 0.6 MG TABLET PO ×3 (11:53→21:01)
[2024-11-30 11:58] LABS: Glucometer 132 mg/dL (74-106)
--- NOTE | 2024-11-30 12:24 | PM.PN ---
Progress Note: Subjective Subjective Interval history: Patient slowly improving. Reports pain in right foot improved but still severe pain to stand or bear weight. Feet stiff and not able to bend toes. Normal appetite and no emesis or diarrhea. No palpitations and pulse normal. No SOB or cough. Exam Constitutional Vital Signs, click to edit/add: Last Vital Signs Temp 97.8 F 11/30/24 11:30 Pulse 88 11/30/24 11:30 Resp 18 11/30/24 11:30 BP 156/74 H 11/30/24 11:30 Pulse Ox 97 11/30/24 11:30 O2 Del Method Room Air 11/30/24 11:30 Documenting provider has reviewed patient's vital signs: yes Common normals: no apparent distress, oriented x3 and alert HENMT Common normals: normocephalic Eye Common normals: PERRL and EOMs intact bilaterally Respiratory Common normals: normal respiratory effort and clear to auscultation bilaterally Cardio Common normals: regular rate, no gallops, no murmurs and no rub Rhythm: abnormal rhythm irregularly irregular GI Common normals: Normal to inspection, nondistended, normoactive bowel sounds present and non-tender Extremity Common normals: no pedal edema Progress Note: Objective Labs Labs: Short CBC 11/30/24 Range/Units 05:35 WBC 10.5 (4.0-11.0) 10^3/uL Hgb 10.1 L (12.0-16.0) g/dL Hct 32.8 L (36.0-48.0) % Plt Count 202 (150-450) 10^3/uL BMP 11/30/24 05:35 Sodium 145 Potassium 4.1 Chloride 111 H Carbon Dioxide 23.0 BUN 21.0 H Creatinine 0.88 Glucose 115 H Calcium 9.3 Cardiac Enzymes 11/30/24 Range/Units 05:35 Total Creatine Kinase 61 (26-192) U/L Progress Note: A&P Assessment and Plan (1) Atrial fibrillation with RVR: (2) Rhabdomyolysis: Qualifiers: Rhabdomyolysis type: non-traumatic Qualified Code(s): M62.82 - Rhabdomyolysis (3) Gout flare: Qualifiers: Gout etiology: idiopathic Gout site: foot Laterality: right Qualified Code(s): M10.071 - Idiopathic gout, right ankle and foot (4) Acute UTI (urinary tract infection): (5) Diabetes mellitus: Qualifiers: Diabetes mellitus type: type 2 Diabetes mellitus superintendent terminal insulin use: without superintendent terminal use Diabetes mellitus complication status: with kidney complications Diabetes mellitus complication detail: with chronic kidney disease Chronic kidney disease stage: stage 3 (moderate) Chronic kidney disease stage 3 subtype: stage 3a (GFR 45-59) Qualified Code(s): E11.22 - Type 2 diabetes mellitus with diabetic chronic kidney disease; N18.31 - Chronic kidney disease, stage 3a (6) Benign essential hypertension: (7) Chronic heart failure with preserved ejection fraction (HFpEF): (8) Hypothyroidism (acquired): (9) Interstitial lung disease: (10) CAD (coronary artery disease): Qualifiers: Coronary Disease-Associated Artery/Lesion type: [place] artery [place] vs. transplanted heart: [place] heart Associated angina: without angina Qualified Code(s): I25.10 - Atherosclerotic heart disease of [place] coronary artery without angina pectoris (11) CKD stage 3a, GFR 45-59 ml/min: Plan Remains in afib but rate controlled with medication. Gout slowly improving but still very difficult to walk or stand. Start colchecine. Continue PT/OT. Continue rocephin and await urine culture. Monitor labs and vitals. If continues to have difficulty with ambulation likely will need SNF upon discharge. Urinary Catheter Management Urinary Catheter Management Urethral: Cath placed during this visit: yes, but has since been removed by the nurse Urethral indwelling: Yes Insertion date: 11/28/24 Insertion time: 11:40 Removal date: 11/29/24 Removal time: 14:00
--- NOTE | 2024-11-30 13:19 | SWNOTE1 ---
SW faxed updated PT/OT notes, physician note from today, labs, vitals, and nursing notes to [facility].
--- NOTE | 2024-11-30 15:24 | SWNOTE1 ---
SW completed HENS online.
[2024-11-30 15:53] LABS: Glucometer 275 mg/dL (74-106)
[2024-11-30] MEDS: INSULIN ASPART 300 UNIT/3 ML PEN SUBQ ×2 (16:48→21:03)
[2024-11-30 21:01] LABS: Glucometer 233 mg/dL (74-106)
[2024-11-30] MEDS: ATORVASTATIN CALCIUM 10 MG TABLET PO (21:01)
[2024-11-30] MEDS: CEFTRIAXONE 1,000 MG in 0.9 % SODIUM CHLORIDE 50 ML 100 MG IV (21:01)
[2024-12-01 03:00] VITALS: BP 150/66; PULSE 88; TEMP 36.5; O2SAT 93
[2024-12-01] MEDS: LEVOTHYROXINE SODIUM 75 MCG TABLET 150 MCG PO (05:39)
[2024-12-01] MEDS: COLCHICINE 0.6 MG TABLET PO (05:39)
[2024-12-01] MEDS: NYSTATIN 15 GM POWDER 1 APPLIC TOPICAL (05:40)
[2024-12-01 06:13] LABS: Basophils Percent Auto 0.2 % (0.2-2.0); Eosinophils Absolute Auto 0.1 10^3/uL (0.0-0.7); Eosinophils Percent Auto 0.5 % (0.9-7.0); Hematocrit 31.9 % (36.0-48.0); Hemoglobin 9.9 g/dL (12.0-16.0); Immature Granulocytes Abs Auto 0.05 10^3/uL (0.00-0.03); Immature Granulocytes Pct Auto 0.4 % (0.0-0.5); Lymphocytes Absolute Auto 2.8 10^3/uL (1.2-3.8); Lymphocytes Percent Auto 24.5 % (20.5-60.0); Mean Corpuscular Hemoglobin 27.6 pg (26.7-34.0); Mean Corpuscular Volume 88.9 fL (81.0-99.0); Mean Platelet Volume 11.6 fL (9.5-13.5); Monocytes Absolute Auto 0.6 10^3/uL (0.3-0.8); Monocytes Percent Auto 5.1 % (1.7-12.0); Neutrophils Absolute Auto 7.8 10^3/uL (1.4-6.5); Neutrophils Percent Auto 69.3 % (43.0-75.0); Platelet Count 225 10^3/uL (150-450); Red Blood Count 3.59 10^6/uL (4.20-5.40); Red Cell Distribution Width 15.9 % (11.0-15.0); White Blood Count 11.2 10^3/uL (4.0-11.0)
[2024-12-01 06:49] LABS: Anion Gap 12.1; BUN Creatinine Ratio 23.1; Calcium 9.1 mg/dL (8.5-10.1); Carbon Dioxide 25.8 mmol/L (21.0-32.0); Chloride 111 mmol/L (98-107); Creatine Kinase 32 U/L (26-192); Estimated GFR (African America >60 (>=60 mL/min/1.73m^2); Estimated GFR (Non-African Ame >60 (>=60 mL/min/1.73m^2); Glucose 96 mg/dL (74-106); Myoglobin 58 ng/mL (9-82); Potassium 3.9 mmol/L (3.5-5.1); Sodium 145 mmol/L (136-145)
[2024-12-01 07:35] VITALS: BP 154/84; PULSE 92; TEMP 36.6; O2SAT 96
[2024-12-01] MEDS: ISOSORBIDE MONONITRATE 30 MG TAB.ER.24H PO (08:33)
[2024-12-01] MEDS: ALLOPURINOL 300 MG TABLET PO (08:33)
[2024-12-01] MEDS: BUPROPION HCL 150 MG SR TABLET 12H PO (08:33)
[2024-12-01] MEDS: LIOTHYRONINE SODIUM 5 MCG TABLET PO (08:33)
[2024-12-01] MEDS: APIXABAN 5 MG TABLET PO (08:33)
[2024-12-01] MEDS: METOPROLOL TARTRATE 100 MG TABLET PO (08:33)
[2024-12-01] MEDS: GEMFIBROZIL 600 MG TABLET PO (08:33)
[2024-12-01] MEDS: PREDNISONE 20 MG TABLET 50 MG PO (08:34)
[2024-12-01] MEDS: DILTIAZEM HCL 120 MG CAP.ER.24H PO (10:16)
[2024-12-01 10:17] VITALS: BP 140/84; PULSE 90; TEMP 36.6; O2SAT 95
[2024-12-01] MEDS: LOPERAMIDE HCL 2 MG CAPSULE PO (10:38)
--- NOTE | 2024-12-01 10:45 | CM.NOTE ---
Rounds made with Dr. Hawkins, pt will discharge to skilled rehab at [facility] today.
--- NOTE | 2024-12-01 11:13 | PT.DAILY ---
Physical Therapy Daily Note PT Daily Note/Assess Start: 11/30/24 10:27 Freq: Status: Active Protocol: Document 12/01/24 10:35 OLIVIA (Rec: 12/01/24 11:13 OLIVIA [id number]) Physical Therapy Daily Note/Assessment Time In/Time Out Time In 10:33 Time Out 10:48 Subjective Subjective Patient reports pain is less in R LE and has been walking more with nursing. Reports some soreness in R LE but no pain. Therapeutic Exercise Time Therapeutic Exercise 5 Minutes (minutes) Therapeutic Exercise 0 Units Therapeutic Exercise Treatment Therapeutic Exercise Seated exercises: Treatment LAQ x 10 Marches x 10 HR/TR Hip abd x10 Hip adduction squeezes x 10 Therapeutic Activity Time Therapeutic Activity 10 Minutes (minutes) Therapeutic Activity 1 Units Therapeutic Activity Treatment Chair Transfer Independent Ability Therapeutic Activity Patient ambulated 40 feet with RW CGA. Comments Total Physical Therapy Time Total Therapy 15 Minutes Total Physical 1 Therapy Units Summary Daily Note Summary Patient reports less pain in R LE today and demonstrates increased distance with ambulation to 40 feet this date. Some soreness reported post treatment but denies increased pain. Patient in chair with call light in reach and all needs met post treatment. Recommend SNF at [place] to increased strength in B LE to improve functional mobility.
[2024-12-01 11:16] LABS: Glucometer 150 mg/dL (74-106)
[2024-12-01] MEDS: INSULIN ASPART 300 UNIT/3 ML PEN SUBQ (11:17)
--- NOTE | 2024-12-01 11:44 | PM.DS1 ---
DS: Providers Provider Date of admission: 11/28/24 04:18 Primary care physician: AZRA LAGUNA Consults: 11/28/24 11:23 Occupational Therapy Eval and Treat Routine Reason for consultation: Weakness Has provider been notified: No Physical Therapy Eval and Treat Routine Reason for consultation: Weakness Has provider been notified: No DS: Diagnosis Discharge Diagnosis (1) Atrial fibrillation with RVR: (2) Rhabdomyolysis: Qualifiers: Rhabdomyolysis type: non-traumatic Qualified Code(s): M62.82 - Rhabdomyolysis (3) Gout flare: Qualifiers: Gout etiology: idiopathic Gout site: foot Laterality: right Qualified Code(s): M10.071 - Idiopathic gout, right ankle and foot (4) UTI due to Klebsiella species: (5) Diabetes mellitus: Qualifiers: Diabetes mellitus type: type 2 Diabetes mellitus custodial insulin use: without custodial use Diabetes mellitus complication status: with kidney complications Diabetes mellitus complication detail: with chronic kidney disease Chronic kidney disease stage: stage 3 (moderate) Chronic kidney disease stage 3 subtype: stage 3a (GFR 45-59) Qualified Code(s): E11.22 - Type 2 diabetes mellitus with diabetic chronic kidney disease; N18.31 - Chronic kidney disease, stage 3a (6) Benign essential hypertension: (7) Chronic heart failure with preserved ejection fraction (HFpEF): (8) Hypothyroidism (acquired): (9) Interstitial lung disease: (10) CAD (coronary artery disease): Qualifiers: Coronary Disease-Associated Artery/Lesion type: [place] artery [place] vs. transplanted heart: [place] heart Associated angina: without angina Qualified Code(s): I25.10 - Atherosclerotic heart disease of [place] coronary artery without angina pectoris (11) CKD stage 3a, GFR 45-59 ml/min: DS: Summary Hospital Course Hospital Course: Reason for admission: See H&P fro details. 74 y/o female to ER after a fall. History of gout and woke up yesterday with severe pain in right foot. Foot red and warm to touch. Sat on commode and not able to stand due to pain. Laid on floor all day and not able to get up. History of afib and did not take medication. Called EMS in evening and brought to ER. In ER found rapid afib and rate 150s-160s. Gave dose IV cardizem then started drip. Labs showed evidence of rhabdo with elevated myoglobin. UA showed UTI. Did not give fluids due to history HFpEF. Echo May 2023 showed EF 55-60%. Admitted for treatment. Hospital course: Started IV fluids for rhabdo. Weaned off cardizem drip and resumed home medication. Uric acid elevated and started prednisone. Increased allopurinol. Remained in afib and increased metoprolol which controlled heart rate. Continued pain in foot. Started PT and had difficulty with ambulation. Added cholchecine. Urine culture showed UTI due to K. pneumoniae but sensitive to Rocephin. PT recommended SNF. Vitals stable. Labs improved. Discharged to SNF in stable condition. Will continue increased dose of allopurinol and metoprolol. Continue cefdinir for UTI. Resume home medication as directed. Time Spent with Patient Time attestation: Total time spent providing and/or coordinating discharge services: Time spent: greater than 30 minutes Exam Constitutional Vital Signs, click to edit/add: Last Vital Signs Temp 97.8 F 12/01/24 10:17 Pulse 90 12/01/24 10:17 Resp 18 12/01/24 10:17 BP 140/84 12/01/24 10:17 Pulse Ox 95 12/01/24 10:17 O2 Del Method Room Air 12/01/24 10:17 Documenting provider has reviewed patient's vital signs: yes Common normals: oriented x3 and alert HENMT Common normals: normocephalic Eye Common normals: PERRL and EOMs intact bilaterally Respiratory Common normals: normal respiratory effort and clear to auscultation bilaterally Cardio Common normals: regular rate, no gallops, no murmurs and no rub Rhythm: abnormal rhythm irregularly irregular GI Common normals: Normal to inspection, nondistended, normoactive bowel sounds present and non-tender Extremity Common normals: no pedal edema DS: Data Data Completed and Pending Labs on day of discharge: Labs from last 24 hours 12/01/24 12/01/24 11/30/24 11:15 06:06 20:59 WBC 11.2 H RBC 3.59 L Hgb 9.9 L Hct 31.9 L MCV 88.9 MCH 27.6 MCHC 31.0 RDW 15.9 H Plt Count 225 MPV 11.6 Neut % (Auto) 69.3 Lymph % (Auto) 24.5 Stephens % (Auto) 5.1 Eos % (Auto) 0.5 L Baso % (Auto) 0.2 Neut # (Auto) 7.8 H Lymph # (Auto) 2.8 Stephens # (Auto) 0.6 Eos # (Auto) 0.1 Baso # (Auto) 0.0 Abs Immat Gran (auto) 0.05 H Imm/Tot Granulo (auto) 0.4 Sodium 145 Potassium 3.9 Chloride 111 H Carbon Dioxide 25.8 Anion Gap 12.1 BUN 21.0 H Creatinine 0.91 Est GFR ( Amer) >60 Est GFR (Non-Af Amer) >60 BUN/Creatinine Ratio 23.1 Glucose 96 Calcium 9.1 Total Creatine Kinase 32 Myoglobin 58 POC Glucose 150 H 233 H 11/30/24 11/30/24 15:52 11:48 WBC RBC Hgb Hct MCV MCH MCHC RDW Plt Count MPV Neut % (Auto) Lymph % (Auto) Stephens % (Auto) Eos % (Auto) Baso % (Auto) Neut # (Auto) Lymph # (Auto) Stephens # (Auto) Eos # (Auto) Baso # (Auto) Abs Immat Gran (auto) Imm/Tot Granulo (auto) Sodium Potassium Chloride Carbon Dioxide Anion Gap BUN Creatinine Est GFR ( Amer) Est GFR (Non-Af Amer) BUN/Creatinine Ratio Glucose Calcium Total Creatine Kinase Myoglobin POC Glucose 275 H 132 H Discharge Plan Discharge Disposition: Xfer [facility] Discharge Medications: New allopurinol 300 mg Tablet 300 mg PO DAILY Qty: 30 11RF prednisone 10 mg tablet 40 mg PO DAILY Qty: 32 0RF Rx Instructions: 4/day for 3 days, 3/day for 3 days, 2/day for 3 days, 1/day for 3 days, 1/2 /day for 4 days cefdinir 300 mg capsule 600 mg PO DAILY Qty: 14 0RF metoprolol tartrate 100 mg Tablet 100 mg PO BID Qty: 0 0RF Continued bupropion HCl 150 mg tablet sustained-release 12 hr 150 mg PO Q12H atorvastatin 10 mg tablet 10 mg PO DAILY isosorbide mononitrate 30 mg tablet extended release 24 hr 30 mg PO DAILY gemfibrozil 600 mg tablet 600 mg PO BID metformin 1,000 mg tablet 1,000 mg PO BID diltiazem HCl 120 mg capsule,extended release 24hr 120 mg PO Q12H furosemide 20 mg tablet 20 mg PO DAILY albuterol sulfate 90 mcg/actuation HFA aerosol inhaler 2 inh INHALATION Q6H PRN (Reason: shortness of breath or wheezing) Eliquis 5 mg tablet 5 mg PO BID liothyronine 5 mcg tablet 5 mcg PO BID levothyroxine [Unithroid] 300 mcg tablet 150 mcg PO DAILY Discontinued allopurinol 100 mg tablet 100 mg PO DAILY metoprolol tartrate 50 mg tablet 50 mg PO Q12H Print Language: Nigerian Forms: Portal Instructions
--- NOTE | 2024-12-01 11:59 | SWNOTE1 ---
Pt is ready for discharge today. MARISOL sent dc med rec, dc summary, PT/OT, labs, vitals, and CRF to Jessica at [facility]. MARISOL called and set up trips for 1-1:30. MARISOL notified [facility] and nursing of time. Pt is going to [facility] skilled.
--- NOTE | 2024-12-03 14:23 | CM.NOTE ---
Urine culture results faxed to [facility] after speaking with Jessica in Marketing/Admissions.
== END 2024-12-01 13:25 | DRG 690 ==
LOC: ER 11-28 01:46 → ICU 11-28 09:50 → MS 11-28 12:05 → ICU 11-29 08:33 → MS 11-29 08:33
PROVIDERS: Family Medicine; Registered Nurse; Admitting Provider Family Medicine; Emergency Provider Internal Medicine; PCP Family Medicine; Visit Provider Family Medicine
DX: N39.0 Urinary tract infection, site not specified (principal); I48.20 Chronic atrial fibrillation, unspecified; I13.0 Hypertensive heart and chronic kidney disease with heart failure and stage 1 through stage 4 chronic kidney disease, or unspecified chronic kidney disease; M62.82 Rhabdomyolysis; I50.32 Chronic diastolic (congestive) heart failure; J84.9 Interstitial pulmonary disease, unspecified; Z68.41 Body mass index [BMI] 40.0-44.9, adult; B96.1 Klebsiella pneumoniae [K. pneumoniae] as the cause of diseases classified elsewhere; M10.071 Idiopathic gout, right ankle and foot; E11.22 Type 2 diabetes mellitus with diabetic chronic kidney disease; T46.1X6A Underdosing of calcium-channel blockers, initial encounter; T45.516A Underdosing of anticoagulants, initial encounter; Z91.138 Patient's unintentional underdosing of medication regimen for other reason; E66.01 Morbid (severe) obesity due to excess calories; E78.00 Pure hypercholesterolemia, unspecified; H91.90 Unspecified hearing loss, unspecified ear; R53.1 Weakness; F32.A Depression, unspecified; E03.9 Hypothyroidism, unspecified; I25.10 Atherosclerotic heart disease of native coronary artery without angina pectoris; Z79.890 Hormone replacement therapy; Z79.899 Other long term (current) drug therapy; Z60.2 Problems related to living alone; Z88.0 Allergy status to penicillin; Z88.2 Allergy status to sulfonamides; W19.XXXA Unspecified fall, initial encounter
CPT/HCPCS: 36415; 51702; 51798; 71045; 80048; 80053; 80061; 81001; 82550; 82948; 83036; 83735; 83874; 83880; 84443; 84484; 84550; 85025; 85652; 86140; 87086; 87150; 87186; 93005; 93306; 94640; 96365; 96366; 96368; 96376; 97161; 97165; 97530; 97535; 99285; J0696; J7512

== ENCOUNTER 2025-07-31 16:46 | Inpatient (IN) | payer MEDICARE, SELFPAY ==
--- OUTSIDE RECORDS SUMMARY | 2025-07-26 14:30 | XMS_ITS | Encounter Summary ---
Demographics Address [address] [place] [address] Mobile Phone Home Phone Preferred Language en Marital Status Unmarried Hindu Affiliation Unknown Race White Ethnic Group Not or Lati no Author Organization [facility] Address [address] [place] [address] Care Team Providers Care Invasive Cardiologist Name Role Phone Aashish Pérez MD Unavailable [phone] Saroj Carter MD Unavailable [phone] Saroj Oseguera MD Unavailable [phone] Aashish Pérez MD Primary Care Provider [phone] Encounter Details DateTypeDepartmentCare Team (Latest Contact Info)Sfqfogxuljt38/18/2025 2:30 PM ESTOffice Visit [facility] [place] [address] [facility] [address] [facility] [address] [place] [address] Aashish Pérez MD [address] [facility] [address] [place] [address] (Fax) Chronic venous insufficiency of lower extremity Social History Tobacco UseTypesPacks/DayYears UsedDateSmoking Tobacco: NeverSmokeless Tobacco: NeverAlcohol UseStandard Drinks/WeekCommentsNot Currently0 (1 standard drink = 0.6 oz pure alcohol)Caffeine intake: 1 cup day of soda, occasional diet coke AUDIT-CAnswerDate RecordedQ1: How often do you have a drink containing alcohol? Never08/23/2024Q2: How many drinks containing alcohol do you have on a typical day when you are drinking?Patient does not drink08/23/2024Q3: How often do you have six or more drinks on one occasion?Never08/23/2024HQ-2AnswerDate Recorded Patient Health Questionnaire-2 Pucxk648EducationAnswerDate RecordedWhat is the highest level of school you have completed or the highest degree you have received?High school lpzncean45/13/2023CommentsNoSex and Gender InformationValueDate RecordedSex Assigned at BirthNot on fileLegal SexFemale 11/20/2022 6:39 PM EDTGender IdentityNot on fileSexual OrientationNot on file documented as of this encounter Plan of Treatment DateTypeDepartmentCare Team (Latest Contact Info)Eupjqvwugnb43/17/2025 1:45 PM ESTOffice Visit [facility] [address] [place] [address] Angel Ramsey DO [address] [place] [address] 10/20/2025 2:00 PM ESTOffice Visit [facility] [place] [facility] Family Medicine [address] [place] [address] [place] [address] Aashish Pérez MD [address] [place] [address] (Fax) 12/22/2025 2:00 PM EDTOffice Visit [facility] [place] [address] [facility] [address] [facility] [address] [place] [address] Aashish Pérez MD [address] [place] [address] (Fax) documented as of this encounter Visit Diagnoses Diagnosis Chronic venous insufficiency of lower extremity documented in this encounter Additional Health Concerns AssessmentNoted TimePHQ-9 Depression Total Score: 1:00 PM EST documented as of this encounter Care Teams Team MemberRelationshipSpecialtyStart DateEnd Date Aashish Pérez MD [address] [place] [address] (Fax) PCP - ACO Reach01/30/23 Aashish Pérez MD [address] [place] [address] PCP - GeneralFamily Medicine01/11/25 Saroj Carter MD [address] [place] [address] Referring XtmyljecuKcwuaktmsk15/13/23 [place] [address] [place] [address] Referring PhysicianUrology12/02/23documented as of this encounter
[2025-07-31] VITALS (11 sets, daily range): BP systolic 141–164; BP diastolic 66–80; PULSE 83–103; TEMP 36.3–36.8; O2SAT 88–97; BMI 39.1; BMI 42.9
--- NOTE | 2025-07-31 16:54 | ECG_ITS ---
The [facility] Test Date: 2025-07-31 Pat Name: PATRICIA ORNELAS Department: Room: - Gender: Female Sleep Manager: : 1950 Requested By: [id number] Order Number: [id number] Reading MD: BRI PERKINS M.D. Measurements Intervals [place] Rate: 91 P: -34563 CO: -03176 QRS: 96 QRSD: 88 T: 32 QT: 308 QTc: 356 Interpretive Statements 1210 Atrial fibrillation [address] & Twave abnormality, probably digitalis effect 7102 Moderate right axis deviation 8305 Short QTc interval 9150 abnormal ECG Compared to ECG 11/27/2024 21:22:29 Right-axis deviation now present ST (T wave) deviation still present Electronically Signed On 07-31-2025 20:40:25 EST by BRI PERKINS M.D.
--- NOTE | 2025-07-31 16:54 | XR_ITS ---
The [address] [address] Patient Name: PATRICIA ORNELAS MRN: [id number] date: 1950 Sex: F Assigned Patient Location: ER Current Patient Location: ER Accession/Order Number: [id number] Exam Date: 07/31/2025 17:15 Report Date: 07/31/2025 17:28 At the request of: NICOLA DIAZ MD Procedure: XR chest 1V Single view chest: CLINICAL HISTORY: sob COMPARISON: Chest 11/27/2024 FINDINGS: Cardiomegaly with vascular congestion is similar to the prior study. No new consolidation pneumothorax pleural effusion or free air. XR/XR chest 1V IMPRESSION: NO SIGNIFICANT CHANGE IN CHEST FINDINGS. CHF FINDINGS PERSISTS. Impression dictated by: Jabari Moore Jr., D.O. 07/31/2025 5:28 PM Dictation Location: [place] [address] Electronically authenticated by: [id number] Y Date: 07/31/2025 17:28
[2025-07-31] MEDS: IPRATROPIUM/ALBUTEROL SULFATE 3 ML AMPUL.NEB IH (17:04)
[2025-07-31 17:12] LABS: Hematocrit 32.7 % (36.0-48.0); Hemoglobin 10.0 g/dL (12.0-16.0); Immature Granulocytes Abs Auto 0.05 10^3/uL (0.00-0.03); Immature Granulocytes Pct Auto 0.5 % (0.0-0.5); Lymphocytes Absolute Auto 1.2 10^3/uL (1.2-3.8); Mean Corpuscular HGB Conc 30.6 g/dL (29.9-35.2); Mean Corpuscular Hemoglobin 28.6 pg (26.7-34.0); Mean Corpuscular Volume 93.4 fL (81.0-99.0); Platelet Count 176 10^3/uL (150-450); Red Blood Count 3.50 10^6/uL (4.20-5.40); White Blood Count 9.8 10^3/uL (4.0-11.0)
[2025-07-31] MEDS: METHYLPREDNISOLONE SOD SUCC PF 125 MG/2 ML VIAL IVP (17:25)
[2025-07-31 17:36] LABS: Alanine Aminotransferase 7 U/L (14-59); Albumin Globulin Ratio 0.8; Albumin Level 3.2 g/dL (3.4-5.0); Alkaline Phosphatase 62 U/L (46-116); Anion Gap 15.1; Aspartate Amino Transferase 31 U/L (15-37); Blood Urea Nitrogen 14.0 mg/dL (7.0-18.0); Calcium 9.4 mg/dL (8.5-10.1); Carbon Dioxide 27.1 mmol/L (21.0-32.0); Chloride 105 mmol/L (98-107); Estimated GFR (African America >60 (>=60 mL/min/1.73m^2); Estimated GFR (Non-African Ame >60 (>=60 mL/min/1.73m^2); Globulin 3.8 g/dL; Glucose 146 mg/dL (74-106); Potassium 4.2 mmol/L (3.5-5.1); Sodium 143 mmol/L (136-145); Total Protein 7.0 g/dL (6.4-8.2)
[2025-07-31 17:44] LABS: Magnesium 1.6 mg/dL (1.8-2.4)
--- NOTE | 2025-07-31 17:49 | ECG_ITS ---
The [facility] Test Date: 2025-07-31 Pat Name: PATRICIA ORNELAS Department: Room: - Gender: Female Guest Service Aide: : 1950 Requested By: [id number] Order Number: [id number] Reading MD: RBI PERKINS M.D. Measurements Intervals [place] Rate: 92 P: -78052 SC: -95355 QRS: 105 QRSD: 88 T: 21 QT: 318 QTc: 367 Interpretive Statements 1210 Atrial fibrillation [address] & Twave abnormality, probably digitalis effect 7100 Abnormal right axis deviation 8102 Low QRS voltage in chest leads 9150 abnormal ECG Compared to ECG 07/31/2025 16:52:40 Low QRS voltage now present Electronically Signed On 07-31-2025 20:41:40 EST by BRI PERKINS M.D.
--- NOTE | 2025-07-31 18:01 | ED.SOB1 ---
HPI - SOB/Dyspnea General Chief Complaint: Shortness of Breath/Dyspnea Stated Complaint: Shortness of Breath Time Seen by Provider: 07/31/25 16:54 Source: patient Mode of arrival: ambulance Limitations: no limitations History of Present Illness HPI Narrative: The patient is a 75-year-old female who have a history of congestive heart failure A-fib as well as COPD presented to the ER after she has been having shortness of breath since this morning, patient have also some lower extremity edema, it was noted that the patient when evaluated by the EMS initially had a pulse ox that is in the lower 80s but she was provided with a breathing treatment and upon arrival she came to a nonrebreather Patient was tachypneic on arrival still wheezing but she was able to speak in full sentences No chest pain no abdominal pain only shortness of breath and cough that is productive for the last few hours Related Data Home Medications ?Medication ?Instructions ?Recorded ?Confirmed albuterol sulfate 90 mcg/actuation 2 inh inhalation Q6H PRN shortness 06/01/23 07/31/25 aerosol inhaler of breath or wheezing apixaban 5 mg tablet (Eliquis) 5 mg PO BID 06/01/23 07/31/25 atorvastatin 10 mg tablet 10 mg PO DAILY 06/01/23 07/31/25 bupropion HCl 150 mg tablet,12 hr 150 mg PO Q12H 06/01/23 07/31/25 sustained-release diltiazem HCl 120 mg 120 mg PO Q12H 06/01/23 07/31/25 capsule,extended release 24 hr furosemide 20 mg tablet 20 mg PO DAILY 06/01/23 07/31/25 liothyronine 5 mcg tablet 5 mcg PO BID 06/01/23 07/31/25 metformin 1,000 mg tablet 1,000 mg PO BID 06/01/23 07/31/25 levothyroxine 300 mcg tablet 150 mcg PO DAILY 06/02/23 11/28/24 (Unithroid) Previous Rx's ?Medication ?Instructions ?Recorded allopurinol 300 mg tablet 300 mg PO DAILY #30 tabs 11/29/24 prednisone 10 mg tablet 40 mg (4 x 10 mg) PO DAILY #32 tabs 11/29/24 metoprolol tartrate 100 mg tablet 100 mg PO BID #0 tabs 12/01/24 Allergies Allergy/AdvReac Type Severity Reaction Status Date / Time Penicillins Allergy Intermediate Rash Verified 07/31/25 16:50 Sulfa (Sulfonamide AdvReac Intermediate Rash Verified 07/31/25 16:50 Antibiotics) Review of Systems ROS Status of ROS 10 or more systems reviewed and unremarkable except as noted in history and below [facility] Medical History (Updated 07/31/25 @ 18:05 by Siena Cheng MD) Chronic heart failure with preserved ejection fraction (HFpEF) ?I50.32 - Chronic diastolic (congestive) heart failure (ICD-10) Interstitial lung disease ?J84.9 - Interstitial pulmonary disease, unspecified (ICD-10) CKD stage 3a, GFR 45-59 ml/min ?N18.31 - Chronic kidney disease, stage 3a (ICD-10) CAD (coronary artery disease) ?I25.10 - Atherosclerotic heart disease of [place] coronary artery without angina pectoris (ICD-10) Benign essential hypertension ?I10 - Essential (primary) hypertension (ICD-10) Rhabdomyolysis ?M62.82 - Rhabdomyolysis (ICD-10) Atrial fibrillation with RVR ?I48.91 - Unspecified atrial fibrillation (ICD-10) Gout flare ?M10.9 - Gout, unspecified (ICD-10) Hypothyroidism (acquired) ?E03.9 - Hypothyroidism, unspecified (ICD-10) Diabetes mellitus ?E11.9 - Type 2 diabetes mellitus without complications (ICD-10) Acute UTI (urinary tract infection) ?N39.0 - Urinary tract infection, site not specified (ICD-10) Hypercholesterolemia ?E78.00 - Pure hypercholesterolemia, unspecified (ICD-10) Anemia (05/14/23) ?D64.9 - Anemia, unspecified (ICD-10) Arthritis of left knee (10/16/22) ?M17.12 - Unilateral primary osteoarthritis, left knee (ICD-10) Atrophic vaginitis (05/14/23) ?N95.2 - Postmenopausal atrophic vaginitis (ICD-10) Bilateral enlargement of atria (05/14/23) ?I51.7 - Cardiomegaly (ICD-10) Chest pain (12/13/16) ?R07.9 - Chest pain, unspecified (ICD-10) Chronic dermatitis ?L30.9 - Dermatitis, unspecified (ICD-10) Chronic fatigue syndrome (11/04/22) ?G93.32 - Myalgic encephalomyelitis/chronic fatigue syndrome (ICD-10) Chronic post-traumatic stress disorder (10/16/22) ?F43.12 - Post-traumatic stress disorder, chronic (ICD-10) Chronic vulvitis ?N76.3 - Subacute and chronic vulvitis (ICD-10) Degeneration of thoracic intervertebral disc (05/14/23) ?M51.34 - Other intervertebral disc degeneration, thoracic region (ICD-10) Detrusor overactivity (02/27/22) ?N32.81 - Overactive bladder (ICD-10) Diabetes mellitus without complication (12/13/16) ?E11.9 - Type 2 diabetes mellitus without complications (ICD-10) Dyspnea (12/13/16) ?R06.00 - Dyspnea, unspecified (ICD-10) Dyspnea on exertion ?R06.09 - Other forms of dyspnea (ICD-10) Electrocardiogram abnormal (09/17/22) ?R94.31 - Abnormal electrocardiogram [ECG] [EKG] (ICD-10) Fibrocystic disease of breast (05/14/23) ?N60.19 - Diffuse cystic mastopathy of unspecified breast (ICD-10) Hearing loss (05/14/23) ?H91.90 - Unspecified hearing loss, unspecified ear (ICD-10) Heart murmur (05/14/23) ?R01.1 - Cardiac murmur, unspecified (ICD-10) Hypertensive disorder (04/20/18) ?I10 - Essential (primary) hypertension (ICD-10) Hyperuricemia ?E79.0 - Hyperuricemia without signs of inflammatory arthritis and tophaceous disease (ICD-10) Incomplete emptying of bladder ?R33.9 - Retention of urine, unspecified (ICD-10) Incomplete uterovaginal prolapse (05/14/23) ?N81.2 - Incomplete uterovaginal prolapse (ICD-10) Iron deficiency anemia ?D50.9 - Iron deficiency anemia, unspecified (ICD-10) Kidney stone ?N20.0 - Calculus of kidney (ICD-10) Microalbuminuric diabetic nephropathy (05/14/23) ?E11.21 - Type 2 diabetes mellitus with diabetic nephropathy (ICD-10) Mixed hyperlipidemia (10/16/22) ?E78.2 - Mixed hyperlipidemia (ICD-10) Morbid obesity (05/14/23) ?E66.01 - Morbid (severe) obesity due to excess calories (ICD-10) Omphalitis ?P38.9 - Omphalitis without hemorrhage (ICD-10) Overactive bladder ?N32.81 - Overactive bladder (ICD-10) Primary gout ?M10.00 - Idiopathic gout, unspecified site (ICD-10) Pulmonary hypertension (05/14/23) ?I27.20 - Pulmonary hypertension, unspecified (ICD-10) Recurrent major depression in partial remission (05/14/23) ?F33.41 - Major depressive disorder, recurrent, in partial remission (ICD-10) Renal impairment ?N28.9 - Disorder of kidney and ureter, unspecified (ICD-10) Restrictive lung disease (05/14/23) ?J98.4 - Other disorders of lung (ICD-10) Sick-euthyroid syndrome (11/08/22) ?E07.81 - Sick-euthyroid syndrome (ICD-10) Venous insufficiency of leg (05/04/24) ?I87.2 - Venous insufficiency (chronic) (peripheral) (ICD-10) Vitamin D deficiency (12/13/16) ?E55.9 - Vitamin D deficiency, unspecified (ICD-10) Acquired hypothyroidism (11/08/22) ?E03.9 - Hypothyroidism, unspecified (ICD-10) Atrial fibrillation (02/12/22) ?I48.91 - Unspecified atrial fibrillation (ICD-10) Coronary arteriosclerosis (05/14/23) ?I25.10 - Atherosclerotic heart disease of [place] coronary artery without angina pectoris (ICD-10) CKD stage 3b, GFR 30-44 ml/min ?N18.32 - Chronic kidney disease, stage 3b (ICD-10) Paroxysmal atrial fibrillation ?I48.0 - Paroxysmal atrial fibrillation (ICD-10) Atrial fibrillation ?I48.91 - Unspecified atrial fibrillation (ICD-10) Pneumonia ?J18.9 - Pneumonia, unspecified organism (ICD-10) Congestive heart failure ?I50.9 - Heart failure, unspecified (ICD-10) Depression ?F32.A - Depression, unspecified (ICD-10) Gout ?M10.9 - Gout, unspecified (ICD-10) Type 2 diabetes mellitus ?E11.9 - Type 2 diabetes mellitus without complications (ICD-10) Chronic a-fib ?I48.20 - Chronic atrial fibrillation, unspecified (ICD-10) Gallbladder & bile duct stone with obstruction ?K80.71 - Calculus of gallbladder and bile duct without cholecystitis with obstruction (ICD-10) Surgical History (Updated 11/28/24 @ 04:55 by Nelia Ramos) History of cholecystectomy ?Z90.49 - Acquired absence of other specified parts of digestive tract (ICD-10) Family History Other Family history of CHF (congestive heart failure) Family history of diabetes mellitus Family history of hypertension Family history of myocardial infarction Family history of stroke Social History (Updated 11/28/24 @ 04:56 by Nelia Ramos) Within the past year, how often did you have a drink containing alcohol: never Within the past year, how often did you have six or more drinks on one occasion: never Score interpretation: A score less than 3 is consistent with normal alcohol consumption. 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: [employer] Highest level of school completed/degree received: 12th grade, no diploma Little interest or pleasure in doing things: several days Feeling down, depressed, or hopeless: not at all Do you think of yourself as: straight/heterosexual Gender Identity: female Exam Narrative Exam Narrative: Nurses notes and vital signs reviewed and tachypneic on nonrebreather General: Well-appearing and in no apparent distress. Skin: Warm, dry, no pallor noted. No rash. Head: Normocephalic, atraumatic. Neck: Supple, non-tender. Eye: Pupils are equal, round and EOMI. No scleral icterus. Ears, Nose, Mouth, and Throat: TM are clear, no nasal mucosal hypertrophy. Oral mucosa is moist, no posterior oropharynx erythema, uvula is mid-line Cardiovascular: Irregular rate and Rhythm without murmur, gallop or rub. Respiratory: No accessory muscle use or respiratory distress. Lungs bilateral extensive expiratory lung wheezing both lung balder[place] and the patient is tachypneic Back: No midline thoracic or lumbar vertebral tenderness. No CVA tenderness Musculoskeletal: normal ROM, no calf or popliteal tenderness, 1+ pitting edema bilaterally GI: Abdomen is soft, non-distended. Normal bowel sounds. No masses appreciated. No tenderness to palpation. No rebound, guarding, or rigidity noted. Neurological: A&O x4. No cranial nerve dysfunction observed. No truncal ataxia. Moves all extremities. Sensation intact. Psychiatric: Cooperative and interactive. Normal mood and affect. Constitutional Vital Signs, click to edit/add: Last Vital Signs Temp 98.2 F 07/31/25 16:47 Pulse 88 07/31/25 17:05 Resp 20 07/31/25 17:05 BP 164/80 H 07/31/25 16:47 Pulse Ox 96 07/31/25 17:05 O2 Del Method Room Air 07/31/25 17:05 Course Vital Signs Vital signs: Vital Signs Temperature 98.2 F 07/31/25 16:47 Pulse Rate 98 H 07/31/25 16:47 Respiratory Rate 26 H 07/31/25 16:47 Blood Pressure 164/80 H 07/31/25 16:47 Pulse Oximetry 93 L 07/31/25 16:47 Oxygen Delivery Method Room Air 07/31/25 16:47 Temperature 98.2 F 07/31/25 16:47 Pulse Rate 88 07/31/25 17:05 Respiratory Rate 20 07/31/25 17:05 Blood Pressure 164/80 H 07/31/25 16:47 Pulse Oximetry 96 07/31/25 17:05 Oxygen Delivery Method Room Air 07/31/25 17:05 MDM - SOB/Dyspnea MDM Narrative Medical decision making narrative: The patient upon arrival was found to be hypoxemic by the EMS provided with a breathing treatment her lung examination showed that she have obvious wheezing The patient was not using accessory muscle on arrival but she was tachypneic The patient EKG initially showed that she have A-fib she has a history of A-fib and she takes Eliquis and Cardizem A-fib with a heart rate of [address] elevation or depression The patient chest x-ray showed that she had CHF picture with elevated BNP above 3000 The patient initially had a breathing treatment started as well as Solu-Medrol she also had Lasix 40 mg IV added The patient still have a significant shortness of breath not desaturating at the moment but she will need further treatment Patient case discussed with and patient will be admitted for CHF exacerbation management as well as COPD exacerbation Lab Data Labs: Lab Results 07/31/25 07/31/25 Range/Units 16:59 17:00 WBC 9.8 (4.0-11.0) 10^3/uL RBC 3.50 L (4.20-5.40) 10^6/uL Hgb 10.0 L (12.0-16.0) g/dL Hct 32.7 L (36.0-48.0) % MCV 93.4 (81.0-99.0) fL MCH 28.6 (26.7-34.0) pg MCHC 30.6 (29.9-35.2) g/dL RDW 16.7 H (11.0-15.0) % Plt Count 176 (150-450) 10^3/uL MPV 13.0 (9.5-13.5) fL Neut % (Auto) 79.9 H (43.0-75.0) % Lymph % (Auto) 12.5 L (20.5-60.0) % Lamar % (Auto) 6.4 (1.7-12.0) % Eos % (Auto) 0.4 L (0.9-7.0) % Baso % (Auto) 0.3 (0.2-2.0) % Neut # (Auto) 7.8 H (1.4-6.5) 10^3/uL Lymph # (Auto) 1.2 (1.2-3.8) 10^3/uL [place] # (Auto) 0.6 (0.3-0.8) 10^3/uL Eos # (Auto) 0.0 (0.0-0.7) 10^3/uL Baso # (Auto) 0.0 (0.0-0.1) 10^3/uL Abs Immat Gran (auto) 0.05 H (0.00-0.03) 10^3/uL Imm/Tot Granulo (auto) 0.5 (0.0-0.5) % Sodium 143 (136-145) mmol/L Potassium 4.2 (3.5-5.1) mmol/L Chloride 105 (98-107) mmol/L Carbon Dioxide 27.1 (21.0-32.0) mmol/L Anion Gap 15.1 BUN 14.0 (7.0-18.0) mg/dL Creatinine 0.83 (0.55-1.02) mg/dL Est GFR ( Amer) >60 (>=60 mL/min/1.73m^2) Est GFR (Non-Af Amer) >60 (>=60 mL/min/1.73m^2) BUN/Creatinine Ratio 16.9 Glucose 146 H (74-106) mg/dL Calcium 9.4 (8.5-10.1) mg/dL Magnesium 1.6 L (1.8-2.4) mg/dL Total Bilirubin 0.6 (0.2-1.0) mg/dL AST 31 (15-37) U/L ALT 7 L (14-59) U/L Alkaline Phosphatase 62 (46-116) U/L Troponin I High Sens 22.2 (4.0-51.3) pg/mL NT-Pro-B Natriuret Pep 3989.0 H* (<=1800.0) pg/mL Total Protein 7.0 (6.4-8.2) g/dL Albumin 3.2 L (3.4-5.0) g/dL Globulin 3.8 g/dL Albumin/Globulin Ratio 0.8 POC Glucose 148 H (74-106) mg/dL Discharge Plan Discharge Chief Complaint: Shortness of Breath/Dyspnea Clinical Impression: CHF exacerbation, COPD exacerbation Patient Disposition: Admitted As Inpatient Time of Disposition Decision: 18:05
--- OUTSIDE RECORDS SUMMARY | 2025-07-31 18:12 | XMS_ITS | CCD ---
Demographics Address [address] [place], [place] [id number] Preferred Language en Marital Status Single Zoroastrian Affiliation Unknown Race White Ethnic Group Not or Lati no Author Organization [facility] Care Team Providers Care Major Account Manager Name Role Phone NIRU GALINDO Admitting Unavailab NIRU Sage Attending Unavailab yajaira NO, PHYSICIAN Primary Care Unavailable Aashish Laguna Primary Care Provider Aashish Laguna Primary Care Provider Aashish Laguna Primary Care Provider Aashish Laguna MD Primary Care Provider Aashish Laguna MD Primary Care Provider AASHISH LAGUNA Primary Care Physician [phone] Aashish Laguna MD Primary Care Provider ARAMESNURA [...] ., DR OQUENDO Primary Care Unavailable OLENA STONE Consulting Unavailable MD Aashish Laguna Primary Care Provider [phone] DO Angel Ramsey Attending Provider Aashish Laguna MD Unavailable [phone] Aashish Laguna MD Primary Care Provider Niru Galindo MD Unavailable Aashish Laguna MD Unavailable [phone] Aashish Laguna MD Primary Care Provider [phone] Niru Oseguera MD Unavailable Aashish Laguna MD Unavailable Aashish Laguna MD Primary Care Provider Aashish Laguna MD Primary Care Provider Angel Ramsey DO Attending Provider Abdoulaye Brothers MD Attending Provider Aashish Laguna Primary Care Unavailable Angel Ramsey Attending Unavailable nAgel Ramsey Admitting Unavailable Abdoulaye Brothers Attending Unavailable Abdoulaye Brothers Admitting Unavailable Aashish Laguna MD Primary Care Provider AASHISH LAGUNA Primary Care Physician Unavail able Radha Harley Attending Unavailable Orzech, Radha X Admitting Unavailable OrRadha wayne Attending Unavailable Niru Galindo MD Unavailable [phone] Niru Oseguera MD Unavailable [phone] AASHISH LAGUNA Attending Unavailable AASHISH LAGUNA Attending Unavailable AASHISH LAGUNA Attending Unavailable AASHISH LAGUNA Attending Unavailable AASHISH LAGUNA Attending Unavailable AASHISH LAGUNA Attending Unavailable AASHISH LAGUNA Attending Unavailable AASHISH LAGUNA Attending Unavailable ANGEL RAMSEY Attending Unavailable Carol Boucher Unavailable Niru OSEGUERA Admitting Unavailable Niru OSEGUERA Attending Unavailable Niru OSEGUERA Referring Unavailable Allergies Allergy ClassificationReported Allergen(s)Allergy TypeDate of OnsetReaction(s) Facility (20 sources)Lisinopril; Translations: [Unknown]Drug Gjffkrz60-69-9140Phqtmxce, Swelling (finding)[facility] (18 sources)Penicillins; Translations: [penicillins]Propensity to adverse reactions to agrr31-63-0692Rtry, Unknown (qualifier value)[place] (13 sources)SulfanilamideDrug Mbybrbr33-40-4853Bltnt (See Comments)[place] (20 sources)Amino AcidsDrug Iludntd79-60-0314[facility] (4 sources)Sulfonamides (Antibiotic); Translations: [sulfa drugs]Drug allergy Unknown (qualifier value)[facility] (1 source)Sulfonamides (Antibiotic)Drug allergy (disorder)50-48-2000Ktc [facility] (20 sources)AmoxicillinDrug Ypsebmc38-70-9737[facility] Work Phone: (20 sources)Penicillin GDrug Xiphvrp18-28-9628[facility] (20 sources)SulfanilamideAllergy to coanvsolv58-12-5917[facility] Medications Current Medications MedicationDrug Class(es)DatesSig (Normalized)Sig (Original)[id number] 200 actuat albuterol 0.09 mg/actuat metered dose inhaler (20 sources)beta2-Adrenergic AgonistStart: 52-40-7821qlqm 2 puff(s) by inhalation every six hoursalbuterol HFA 90 mcg/act inhaler Indications: Restrictive lung disease Inhale 2 puffs every 6 (six)hours if needed for shortness of breath 18 g 11 02/05/2024 ActiveStart: 48-86-1666dqre 2 puff(s) by inhalation every six hoursalbuterol HFA 90 mcg/act inhaler Inhale 2 puffs every 6 (six) hours if needed. 0 12/11/2022 Activeamiodarone hydrochloride 200 mg oral tablet (8 sources)AntiarrhythmicStart: 01-08-2022 End: 89-79-3108gfbl 1 tablet by mouth once dailyamiodarone (CORDARONE) 200 MG tablet Take 1 tablet by mouth daily 30 tablet 01/08/2022 ActiveamLODIPine 5 mg oral tablet (6 sources)Dihydropyridine Calcium Channel BlockerStart: 36-71-4086yqoa 1 mg by mouth once dailyamLODIPine 5 mg Tab mg tab(s), Oral, Daily, Refills(s) 0 Start Date: 07/27/19 Status: OrderedStart: 64-03-7887axtj 2 tablets by mouth once dailyamLODIPine (NORVASC) 5 MG tablet Take 2 tablets by mouth daily 60 tablet 11 05/07/2019 Activetake 1 tablet by mouth twice dailyamLODIPine (NORVASC) 5 MG tablet Take 5 mg by mouth 2 times daily 0 Activeapixaban 5 mg oral tablet (20 sources)Factor Xa InhibitorStart: 79-38-0243pgsh 1 tablet by mouth in the morningEliquis 5 MG tablet Take 5 mg by mouth in the morning and 5 mg before bedtime. 04/17/2023 ActiveStart: 03-29-2021 End: 95-03-5327yanq 1 tablet by mouth twice dailyELIQUIS 5 MG TABS tablet TAKE ONE TABLET BY MOUTH TWICE A DAY 60 tablet 5 03/21/2022 ActiveAscorbic Acid (6 sources)Vitamin CStart: 18-24-6476Qnjhrbw C Daily, Refills(s) 0 Start Date: 07/27/19 Status: Orderedtake 1 tablet by mouth twice dailyAscorbic Acid (VITAMIN C) 500 MG tablet Take 500 mg by mouth 2 times daily 0 ActiveAspir 81 (1 source)Start: 56-14-7881envz 1 mg by mouth once dailyAspir 81 mg, Oral, Daily, Refills(s) 0 Start Date: 07/27/19 Status: Orderedaspirin 81 mg oral tablet (5 sources)Platelet Aggregation Inhibitor, Nonsteroidal Anti-inflammatory Drug take 1 tablet by mouth once dailyaspirin 81 MG tablet Take 81 mg by mouth daily 0 Activetake 1 tablet by mouth once dailyaspirin 81 MG EC tablet Take 81 mg by mouth daily . 0 Activeatorvastatin 10 mg oral tablet (20 sources)HMG-CoA Reductase InhibitorStart: 07-20-2018 End: 64-92-3508sxpf 1 tablet by mouth once dailyatorvastatin (Lipitor) 10 MG tablet Indications: Hyperlipidemia, mixed Take 1 tablet (10 mg) by mouth Daily 90 tablet 1 01/25/2025 07/24/2025 ActiveB complex with C 20-folic acid (b frpxhos-B-vhqei acid) 1 mg cap (2 sources)take 1 capsule by mouth twice dailyB complex with C 20-folic acid (b rhjlcdi-H-brlpg acid) 1 mg cap Take 1 capsule by mouth 2 (two) times a day . 0 ActiveCalcium Citrate (1 source)Start: 65-05-8666dckapdt citrate Oral, BID, 315-250 mg, Refills(s) 0 Start Date: 07/27/19 Status: Orderedcalcium citrate 1500 mg / cholecalciferol 250 unt oral tablet (11 sources)Vitamin Dtake 1 tablet by mouth twice daily at mealtimecalcium citrate-vitamin D (CITRICAL + D) 315-250 MG-UNIT TABS per tablet Take 1 tablet by mouth 2 times daily (with meals) 0 Activetake 1 tablet by mouth twice daily calcium citrate-vitamin D (CITRACAL+D) 315-200 mg-unit per tablet Take 1 tablet by mouth 2 (two) times a day . 0 ActiveCalcium Citrate / Vitamin D (2 sources)take 1 tablet by mouth twice daily at mealtimecalcium citrate-vitamin D (CITRICAL + D) 315-250 MG-UNIT TABS per tablet Take 1 tablet by mouth 2 times daily (with meals) 0 ActiveCHELATED IRON PO (11 sources)CHELATED IRON PO Take by mouth 0 ActiveChelated Iron PO (1 source)Start: 80-60-0982Yjfeafcx Iron PO Chelated Iron PO Start Date: 07/27/19 Status: Orderedcholecalciferol 0.05 mg oral capsule (9 sources)Vitamin DCholecalciferol (VITAMIN D3) 50 MCG (1999 UT) CAPS Take by mouth 0 Activeciprofloxacin 500 mg oral tablet (1 source)Quinolone AntimicrobialStart: 67-40-7099Xkjjb 500 mg Tab See Instructions, Take 1 tab day prior to procedure and 1 tab day of procdure - aft erwards, # 2 tab(s), Refills(s) 0, Pharmacy: [id number], 149, cm, 06/21/25 13:36:00 EDT, Height/Length Dosing, 92.7, kg, 06/21/25 13:36:00 EDT, Weight Dosing Start Date: 06/21/25 Status: Ordered Quantity: 2.0 Unit: tab(s) Repeat number: 1digoxin 0.125 mg oral tablet (9 sources)Cardiac GlycosideStart: 41-05-0968oywn 1 tablet by mouth once daily digoxin (Lanoxin) 125 MCG tablet Take 125 mcg by mouth Daily 06/15/2025 Active Start: 08-21-2023 End: 00-80-2779bgkq 1 tablet by mouth in the morningdigoxin (Lanoxin) 125 MCG tablet Take 125 mcg by mouth in the morning. 08/21/2023 05/04/2024 Discontinued (Therapy completed)24 hr dilTIAZem hydrochloride 120 mg extended release oral capsule (20 sources)Calcium Channel BlockerStart: 66-94-5941nhii 1 capsule by mouth twice dailydilTIAZem (CARDIZEM CD) 120 MG extended release capsule Take 1 capsule by mouth 2 times daily 60 capsule 11 01/08/2022 ActiveStart: 05-01-2021 take 1 capsule by mouth once dailydilTIAZem (CARDIZEM CD) 120 MG extended release capsule Take 1 capsule by mouth daily 30 capsule 11005/01/2021 Active DilTIAZem (Eqv-Cardizem CD) 120 mg/24 hours oral capsule, extended release (1 source)Start: 73-40-0002xygh 1 capsule by mouth every hourDilTIAZem (Eqv- Cardizem CD) 120 mg/24 hours oral capsule, extended release Refills(s) 0 Start Date:06/21/25 Status: Ordered Repeat number: 1gemfibrozil 600 mg oral tablet (20 sources)Peroxisome Proliferator Receptor alpha AgonistStart: 07-27-2019 End: 86-57-8787qwou 1 tablet by mouth in the morninggemfibrozil (Lopid) 600 MG tablet Indications: Hyperlipidemia, mixed Take 1 tablet (600 mg) by mouth in the morning and 1 tablet (600 mg) before bedtime. 180 tablet 1 01/25/2025 07/24/2025 Ewiass62 hr isosorbide mononitrate 30 mg extended release oral tablet (20 sources)Nitrate VasodilatorStart: 90-88-9130lnom 1 tablet by mouth once dailyisosorbide mononitrate ER (Imdur) 30 MG 24 hr tablet Indications: Coronary artery disease involvingnative coronary artery of [place] heart without angina pectoris Take 1 tablet (30 mg) by mouth Daily30 tablet 1 02/05/2024 ActiveStart: 05-14-2019 End: 79-77-3650rspw 1 tablet by mouth twice dailyisosorbide mononitrate (IMDUR) 30 MG extended release tablet TAKE ONE TABLET BY MOUTH TWICE A DAY 60 tablet 11 10/24/2021 09/17/2022 Discontinuedlevothyroxine sodium 0.15 mg oral tablet (20 sources)l-ThyroxineStart: 90-00-9507dbbtahdcwilal 150 mcg (0.15 mg) Tab Refills(s) 0 Start Date: 10/14/25 Status: Ordered Repeat number: 1Start: 06-02-2025 End: 14-51-0117vqfi 1 tablet by mouth before mealtimelevothyroxine (Synthroid, Levoxyl) 150 MCG tablet Indications: Acquired hypothyroidism Take 1 tablet (150 mcg) by mouth in the morning. Take before meals. 30 tablet 06/02/2025 Active Start: 12-30-2024 End: 53-99-2343gtaq 1 tablet by mouth before mealtimelevothyroxine (Synthroid, Levoxyl) 150 MCG tablet Indications: Acquired hypothyroidism Take 1 tablet (150 mcg) by mouth in the morning. Take before meals. 30 tablet 04/20/2025 05/20/2025 ActiveStart: 05-04-2024 End: 86-41-8449pdsu 1 tablet by mouth before mealtimelevothyroxine (Synthroid, Levoxyl) 50 MCG tablet Indications: Acquired hypothyroidism (CMS/HCC) Take 1 tablet (50 mcg) by mouth in the morning. Take before meals. 90 tablet 1 10/26/2024 04/24/2025 ActiveStart: 08-13-2023 End: 48-52-8967txjh 1 tablet by mouth before mealtimelevothyroxine (Synthroid, Levoxyl) 75 MCG tablet Indications: Acquired hypothyroidism (CMS/HCC) Take 1 tablet (75 mcg) by mouth in the morning. Take before meals. 90 tablet 10/15/2023 Activetake 1 tablet by mouth before mealtimelevothyroxine (Synthroid, Levoxyl) 150 MCG tablet Take 150 mcg by mouth in the morning. Take beforemeals. Active liothyronine sodium 0.005 mg oral tablet (20 sources)l-TriiodothyronineStart: 59-82-3186bziozguqcbua (Cytomel) 5 MCG tablet Indications: ESS (euthyroid sick syndrome) Take 1 tablet in AM and 1 tablet in PM on an empty stomach. DUARTE; Sigma or [employer]stone brands only 60 tablet 06/02/2025 ActiveStart: 07-17-2023 End: 08-21-4553ehnwvcavqvwg (Cytomel) 5 MCG tablet Indications: ESS (euthyroid sick syndrome) Take 1 tablet in AM and 1 tablet in PM on an empty stomach. DUARTE; Sigma or [employer]stone brands only 60 tablet 04/20/2025 ActiveStart: 93-57-4639wesv 1 tablet by mouth once dailyliothyronine 5 mcg Tab microgram tab(s), Oral, Daily, Refills(s) 0 Start Date: 07/27/19 Status: Ordered Repeat number: 1take 1 tablet by mouth once dailyliothyronine (CYTOMEL) 5 MCG tablet Take 5 mcg by mouth daily 0 Activelutein 40 mg oral capsule (4 sources)take 1 capsule by mouth once dailylutein 40 mg cap Take 40 mg by mouth daily . 0 Active1 ml methylPREDNISolone acetate 80 mg/ml injection (8 sources)CorticosteroidStart: 05-18-2025 End: 14-06-0433csvbuyANSVWOOusuoj acetate (DEPO-Medrol) injection 80 mgStart: 05-18-2025 End: 70-91-7571ixivheIIORICPexrhp acetate (DEPO-Medrol) injection 80 mgStart: 05-18-2025 End: 08-61-484252 mg, Intra-articular, Once, On Fri05/18/25 at 1130, For 1 dose Start: 05-18-2025 End: 78-51-908189 mg, Intra-articular, Once, On Fri05/18/25 at 1130, For 1 dose Start: 05-18-2025 End: 79-90-1117vtspbtPWKLVPSdmxcj acetate (DEPO-Medrol) injection 80 mgStart: 05-18-2025 End: 96-90-1151xxdcrwGIVTUPIdnumh acetate (DEPO-Medrol) injection 80 mgStart: 05-18-2025 End: 68-61-215630 mg, Intra-articular, Once, On Fri05/18/25 at 1130, For 1 dose Start: 05-18-2025 End: 14-23-585027 mg, Intra-articular, Once, On Fri05/18/25 at 1130, For 1 dose metoprolol tartrate 50 mg oral tablet (20 sources)beta-Adrenergic BlockerStart: 66-47-1418iodg 2 tablets by mouth in the morningmetoprolol tartrate (Lopressor) 50 MG tablet Take 100 mg by mouth in the morning and 100 mg before bedtime. 04/12/2025 ActiveStart: 23-63-7967rrat 1 tablet by mouth in the morningmetoprolol tartrate (Lopressor) 50 MG tablet Take 50 mg by mouth in the morning and 50 mg before bedtime. 04/17/2023 ActiveStart: 76-36-2564tdyp 1 tablet by mouth twice dailymetoprolol tartrate (LOPRESSOR) 50 MG tablet Take 1 tablet by mouth 2 times daily 60 tablet 11 09/17/2022 Active Start: 05-28-0419tafb 1 tablet by mouth twice dailyMetoprolol Tartrate 37.5 MG TABS TAKE ONE TABLET BY MOUTH TWICE A DAY 0 12/20/2021 ActiveStart: 07-27-2019 take 1 mg by mouth once dailymetoprolol 25 mg ER Tab mg tab(s), Oral, Daily, Refills(s) 0 Start Date: 07/27/19 Status: Ordered Repeat number: 1Start: 84-10-9674txbvlceiox tartrate (LOPRESSOR) 25 MG tablet TAKE ONE TABLET TWICE A DAY 60 tablet 11 01/10/2020 Active End: 85-90-9714malj 1 tablet by mouth in the morningmetoprolol tartrate (Lopressor) 100 MG tablet Take 100 mg by mouth in the morning and 100 mg before bedtime. 04/20/2025 Discontinued (Med list cleanup)24 hr mirabegron 50 mg extended release oral tablet (4 sources)beta3-Adrenergic Agonisttake 50 mg by mouth twice dailyMIRABEGRON ORAL Take 50 mg by mouth 2 (two) times a day . 0 ActiveMultiple Vitamins- Minerals ([facility]) TABS (11 sources)take 1 tablet by mouth twice dailyMultiple Vitamins-Minerals ([facility]) TABS Take by mouth 2 times daily 0 Activemultivitamin with minerals tablet (2 sources)take 1 tablet by mouth once dailymultivitamin with minerals tablet Take 1 tablet by mouth daily . 0 Activenitrofurantoin, macrocrystals 25 mg / nitrofurantoin, monohydrate 75 mg oral capsule (2 sources)Nitrofuran AntibacterialStart: 08-15-1869lhds 1 capsule by mouth in the morningnitrofurantoin, macrocrystal-monohydrate, (Macrobid) 100 MG capsule Take 100 mg by mouth in the morning and 100 mg before bedtime. 06/24/2025 Active nitroglycerin 0.4 mg sublingual tablet (18 sources)Nitrate VasodilatorStart: 06-30-2025 End: 00-76-1047sxbiqldwgtrqu (Nitrostat) 0.4 MG SL tablet Indications: Coronary artery disease involving [place] coronary artery of [place] heart without angina pectoris Place 1 tablet (0.4 mg) under the tongue every5 (five) minutes if needed for chest pain 25 tablet 06/30/2025 07/30/2025 ActiveStart: 07-27-2019 nitroglycerin 0.4 mg sublingual Tab 0.4 mg = 1 tab(s), SubLingual, q5min, PRN for chest pain, # 100tab(s), Refills(s) 0 Start Date: 07/27/19 Status: Ordered Quantity: 100.0 Unit: tab(s) Repeat number: 1Start: 05-17-2019 End: 42-21-6456fkkktRECLTEWO (NITROSTAT) 0.[address] 1 tablet under the tongue every 5 minutes as needed for Chest pain 25 tablet 3 05/17/2019 Activenystatin 100 unt/mg / triamcinolone acetonide 0.001 mg/mg topical ointment (5 sources)Polyene Antifungal, CorticosteroidStart: 32-69-9308tqzjncbg- triamcinolone (Mycolog II) ointment Indications: Chronic vulvitis Apply topically 2 (two) times a day 30 g 08/23/2024 Activepotassium chloride 10 meq extended release oral tablet (20 sources)Start: 12-27-2024 End: 88-76-3647vcje 1 tablet by mouth every twelve hourspotassium chloride CR (Klor-Con) 10 MEQ ER tablet Take 10 mEq by mouth every 12 (twelve) hours 12/2712/27/2024 Activetake 1 tablet by mouth every twelve hourspotassium chloride CR (Klor-Con) 10 MEQ ER tablet Take 10 mEq by mouth every 12 (twelve) hours. ActiveQUEtiapine 25 mg oral tablet (20 sources)Atypical AntipsychoticStart: 12-27-2024 End: 07-69-9179UQRcgllvsi (SEROquel) 25 MG tablet Indications: Chronic post- traumatic stress disorder (PTSD) (CMS/HCC) 1/2 tablet at bedtime 15 tablet 5 12/27/2024 12/27/2024 ActiveStart: 11-11-2023 End: 85-76-1560QOLxmchpfb (SEROquel) 25 MG tablet Indications: Chronic post- traumatic stress disorder (PTSD) (CMS/HCC) 1/2 tablet at bedtime 15 tablet 5 05/12/2024 ActiveStart: 10-15-2023 End: 26-41-7227DFCjivuygc (SEROquel) 25 MG tablet Indications: Chronic post- traumatic stress disorder (PTSD) (CMS/HCC) 1/2 to 2 tablets at bedtime 60 tablet 0 10/15/2023 10/22/2023 Discontinued (Reorder)Maddy jerez (1 source)Start: 42-35-5515PaqlwfSent[facility] Start Date: 07/27/19 Status: Orderedthyroid (halfway) 30 mg oral tablet (6 sources)Start: 89-21-6638aoqa 1 tablet by mouth twice dailyNP THYROID 30 MG tablet TAKE ONE TABLET BY MOUTH TWICE A DAY ON AN EMPTY STOMACH 0 12/20/2021 Active Completed/Discontinued Medications MedicationDrug Class(es)DatesSig (Normalized)Sig (Original)allopurinol 300 mg oral tablet (20 sources)Xanthine Oxidase InhibitorStart: 05-12-2024 End: 85-60-7570kymf 1 tablet by mouth once dailyallopurinol (Zyloprim) 300 MG tablet Indications: Hyperuricemia Take 1 tablet (300 mg) by mouth Daily 90 tablet 1 04/20/2025 06/30/2025 Discontinued (Reorder)Start: 08-13-2023 End: 28-63-9533bdny 1 tablet by mouth once dailyallopurinol (Zyloprim) 100 MG tablet Indications: Hyperuricemia Take 1 tablet (100 mg) by mouth Daily 30 tablet 05/12/2024 10/26/2024 Discontinued (Therapy completed)12 hr buPROPion hydrochloride 150 mg extended release oral tablet (20 sources)AminoketoneStart: 07-17-2023 End: 28-70-8887tzjw 1 tablet by mouth every twelve hours in the morningbuPROPion SR (Wellbutrin SR) 150 MG 12 hr tablet Indications: Recurrent major depressive disorder, in partial remission Take 1 tablet (150 mg) by mouth in the morning and 1 tablet (150 mg) before bedtime. 180 tablet 1 11/09/2024 06/30/2025 Discontinued (Reorder)Start: 94-79-4185bgph 1 mg by mouth twice dailybuPROPion 150 mg ER Tab mg tab(s), Oral, BID, Refills(s) 0 Start Date: 07/27/19 Status: Ordered Repeat number: 1take 1 tablet by mouth twice dailybuPROPion (WELLBUTRIN XL) 150 MG 24 hr tablet Take 150 mg by mouth 2 (two) times a day . 0 Active colchicine 0.6 mg oral tablet (17 sources)Start: 05-12-2024 End: 99-90-5812hzchdppusj 0.6 MG tablet Indications: Acute idiopathic gout involving toe, unspecified laterality initial dose of 1 tablet followed by 1 tablet every 2 hours until the gouty pain is relieved, gastrointestinal symptoms develop, or the maximum dose is reached. Hold metformin while taking 4 tablet 05/12/2024 10/26/2024 Discontinued (Therapy completed)Start: 04-28-2024 End: 95-27-5163eqandpuajw 0.6 MG tablet Indications: Acute idiopathic gout involving toe, unspecified laterality initial dose of 1 tablet followed by 1 tablet every 2 hours until the gouty pain is relieved, gastrointestinal symptoms develop, or the maximum dose is reached. Hold metformin while taking 4 tablet 04/28/2024 05/04/2024 Discontinued (Therapy completed)Start: 10-18-2022 End: 43-18-9465kzbupcvoyf 0.6 MG tablet Take 0.6 mg by mouth if needed. 10/18/2022 04/28/2024 Discontinued (Reorder)furosemide 20 mg oral tablet (20 sources)Loop DiureticStart: 07-12-2021 End: 43-80-7818ojcv 1 tablet by mouth in the morningfurosemide (Lasix) 20 MG tablet Indications: Pulmonary hypertension (HCC) Take 1 tablet (20 mg) by mouth in the morning. 90 tablet 1 01/25/2025 06/30/2025 Discontinued (Reorder) metFORMIN hydrochloride 1000 mg oral tablet (20 sources)BiguanideStart: 07-27-2019 End: 86-66-1393qvxa 1 tablet by mouth in the morningmetFORMIN (Glucophage) 1000 MG tablet Indications: Type 2 diabetes mellitus with stage 3b chronic kidney disease, without long-term current use of insulin (HCC) Take 1 tablet (1,000 mg) by mouth in the morning and 1 tablet (1,000 mg) in the evening. Take with meals. 180 tablet 1 01/25/2025 06/30/2025 Discontinued (Reorder) End: 99-39-5689upzd 1 tablet by mouth twice daily at mealtimemetFORMIN (GLUCOPHAGE) 1000 MG tablet Take 1,000 mg by mouth 2 times daily (with meals) 0 Active End: 77-65-6031yeyx 1 tablet by mouth twice dailymetFORMIN (GLUMETZA) 1000 MG (MOD) 24 hr tablet Take 1,000 mg by mouth 2 (two) times a day . 0 05/19/2019 Discontinued (Stop Taking at Discharge)ondansetron (ZOFRAN-ODT) disintegrating tablet 4 mg (1 source)Start: 05-19-2019 End: 49-99-4999bogs 1 tablet by mouth every six hours as neededondansetron (ZOFRAN-ODT) disintegrating tablet 4 mg100 ml propofol 10 mg/ml injection (2 sources)General AnestheticStart: 02-12-2022 End: 83-15-1297fjoisilr injectionStart: 06-11-2021 End: 86-09-3060vaevarvo injectionregadenoson (LEXISCAN) injection 0.4 mg (1 source)Start: 09-17-2022 End: 61-76-0987iupkbqshptp (LEXISCAN) injection 0.4 mg5 ml sodium chloride 9 mg/ml injection (6 sources)Start: 09-17-2022 End: 81-22-4218xpzysr chloride flush 0.9 % injection 5-40 mLStart: 02-12-2022 End: 40-32-8872lkmgni chloride 0.45 % bolusStart: .45 % sodium chloride infusionStart: 05-19-2019 End: 13-82-4292231 mL, Intravenous, at 937.5 mL/hr, As needed, IF patient heart rate is less than 50 BPM and Systolic BP is less than 90 mmHG, notify Breaker Mechanic, place patient in Trendelenberg, andgive 0.9% NaCl bolus, Starting Fri05/19/19 at 0906, For 1 doseStart: 05-19-2019 End: 22-52-7458qdmjxu chloride 0.9% (NS)technetium sestamibi (CARDIOLITE) injection 10 millicurie (1 source)Start: 09-17-2022 End: 06-96-2855atavlzhryt sestamibi (CARDIOLITE) injection 10 millicurie technetium sestamibi (CARDIOLITE) injection 30 millicurie (1 source)Start: 09-17-2022 End: 60-47-6919dqsepsehzb sestamibi (CARDIOLITE) injection 30 millicurie Problems Active Problems Problem ClassificationProblemDateDocumented DateEpisodic/ChronicAllergic reactions (1 source)Chronic dermatitis; Translations: [Dermatitis, unspecified]08-23-2024 EpisodicAnxiety disorders (20 sources)Post-traumatic stress disorder, unspecified; Translations: [Chronic post-traumatic stress disorder]Onset: [id number]qdyi of urinary tract (2 sources)Kidney nerrv43-96-8417GcxmkdfhOefardk dysrhythmias (20 sources)Atrial fibrillation; Translations: [Unspecified atrial fibrillation] Onset: 19-79-9472QggiuawBkvhcun kidney disease (20 sources)Chronic kidney disease stage 3A ; Translations: [Stage 3a chronic kidney disease (HCC)]Onset: [id number] kidney disease (1 source)Chronic kidney disease; Translations: [CHRONIC KIDNEY DISEASE STAGE 3A]Onset: 94-70-9819Eqrmfikwjazxo of surgical procedures or medical care (2 sources)Drug therapy finding; Translations: [Unspecified adverse effect of drug or medicament, initial encounter]49-21-8174NprvwbfuWtnyaiivlm heart failure; nonhypertensive (1 source)Heart failure, unspecified; Translations: [HEART FAILURE UNSPECIFIED] Onset: 87-47-7997JmldkxsQyzcldtr atherosclerosis and other heart disease (20 sources)Coronary arteriosclerosis; Translations: [Atherosclerotic heart disease of [place] coronary artery without angina pectoris]Onset: 05-14-2023 83-45-0774KdhlorkAtotooqk mellitus with complications (20 sources)Microalbuminuric diabetic nephropathy; Translations: [Type 2 diabetes mellitus with diabetic nephropathy]Onset: hronic Diabetes mellitus without complication (20 sources)Diabetes mellitus without complication; Translations: [Type 2 diabetes mellitus without complications]Onset: 036512-95-8569Hyqdpul Disorders of lipid metabolism (20 sources)Pure hypercholesterolemia, unspecified; Translations: [Mixed hyperlipidemia]Onset: 714419-48-7768YzduafgHlmadnkav hypertension (20 sources)Hypertensive disorder; Translations: [Essential (primary) hypertension]Onset: 550583-54-0122CcruxrlTolqwktbrxyec symptoms and ill- defined conditions (20 sources)Urge incontinence; Translations: [Stress incontinence (female) (male)]Onset: 76-74-7016XqyuritKlptiqqjlrnhg symptoms and ill-defined conditions (9 sources)Incomplete emptying of bladder; Translations: [Increased frequency of urination]Onset: 513303-18-2895TsqevpmcWnlt and other crystal arthropathies (7 sources)Primary gout; Translations: [Idiopathic gout, unspecified ankle and foot]57-33-0900KbwtybaJdocloatnyst with complications and secondary hypertension (19 sources)Hypertensive renal disease; Translations: [Hypertensive chronic kidney disease with stage 1 throughstage 4 chronic kidney disease, or unspecified chronic kidney disease]Onset: 11-09-2024 Resolved: 536408-43-4861OtcyxqaFdzdkogyramf diseases of female pelvic organs (1 source)Chronic vulvitis; Translations: [Subacute and chronic vulvitis] 09-08-6237ZrcrvoszXgchoqe and fatigue (20 sources)Chronic fatigue, unspecified; Translations: [Chronic fatigue syndrome]Onset: 11-04-2022 Resolved: 44-25-7908JbgqzbwDuhpodmnyr disorders (20 sources)Atrophic vaginitis; Translations: [Postmenopausal atrophic vaginitis]Onset: 012324-02-2321HjprrgoGjji disorders (20 sources)Recurrent major depression in partial remission; Translations: [Major depressive disorder, recurrent, in partial remission]Onset: 05-14-2023 86-72-8669WjzygpgGvvoghnycaub breast conditions (20 sources)Fibrocystic disease of breast; Translations: [Diffuse cystic mastopathy of unspecified breast]Onset: 634160-83-4092LjmmixpNbpnuzehsed chest pain (15 sources)Chest pain; Translations: [Chest pain, unspecified]Onset: 12-13-2016 65-84-2917IazombufJdosbohoawt deficiencies (12 sources)Vitamin D deficiency; Translations: [Vitamin D deficiency, unspecified]Onset: 659862-60-5399KbtiiumPlblrtdqlyzzbo (20 sources)Primary osteoarthritis, right ankle and foot; Translations: [Unspecified osteoarthritis, unspecified site]Onset: hronic Other aftercare (1 source)Other longterm (current) drug therapy; Translations: [OTH LONGTERM CURRENT DRUG THERAPY]Onset: 06-30-4679QsiudjnzIuzvq aftercare (1 source)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; Translations: [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 ORAL HYPOGLYCEMIC DX]Onset: 34-61-8050GdeqjzglTqgcf aftercare (2 sources)Patient encounter status; Translations: [Encounter for follow-up examination after completed treatment for conditions other than malignant neoplasm]97-49-4231VetcoxmnCxcld and ill-defined heart disease (20 sources)Bilateral enlargement of atria; Translations: [Cardiomegaly]Onset: 538667-79-4229XbscsfzHtxwb connective tissue disease (3 sources)Pain in right foot; Translations: [PAIN IN RIGHT FOOT]Onset: 98-38-3125MjwcmtqkLlpqg diseases of bladder and urethra (2 sources)Detrusor overactivity; Translations: [Overactive bladder]Onset: 47-36-0578TefmejgHzsmn diseases of bladder and urethra (4 sources)Overactive ozikxlj00-03-1985PkkbrxhKafjb ear and sense organ disorders (20 sources)Hearing loss; Translations: [Unspecified hearing loss, unspecified ear]Onset: 677968-62-5582EnygqvxZkwzt hereditary and degenerative nervous system conditions (20 sources)Mild cognitive impairment, so stated; Translations: [Mild cognitive impairment, so stated]Onset: 165582-35-0998PtwwhgpHvmcs injuries and conditions due to external causes (1 source)History of falling; Translations: [HISTORY OF FALLING]Onset: 24-23-9127WgyqnvabAfzam liver diseases (20 sources)Fatty (change of) liver, not elsewhere classified; Translations: [Other chronic nonalcoholic liver disease]Onset: 689350-51-5171Kbecajs Other lower respiratory disease (2 sources)Interstitial lung disease; Translations: [Interstitial pulmonary disease, unspecified]66-65-3063VinisukUqazj non-traumatic joint disorders (4 sources)Pain in right ankle and joints of right foot; Translations: [PAIN IN RIGHT ANKLE]Onset: 60-84-4903HbkxexghUnndo non-traumatic joint disorders (2 sources)Pain in right knee; Translations: [Pain in joint, lower leg] 98-27-4217TtczojozVrugm nutritional; endocrine; and metabolic disorders (1 source)Morbid (severe) obesity due to excess calories; Translations: [MORBID SEVERE OBES D/T EXCESS NAGI]Onset: 19-77-3706LrgdoxuSuznu nutritional; endocrine; and metabolic disorders (1 source)Body mass index (BMI) 40.0-44.9, adult; Translations: [BODY MASS INDEX BMI 40.0-44.9 ADULT]Onset: 86-94-5614OdgkhmrUckvy nutritional; endocrine; and metabolic disorders (20 sources)Morbid obesity; Translations: [Morbid (severe) obesity due to excess calories]Onset: 957728-13-1607RtiszgfSkcmi nutritional; endocrine; and metabolic disorders (20 sources)Body mass index 40+ - severely obese; Translations: [Body mass index (BMI) 40.0-44.9, adult]Onset: 355842-19-8145PazdvlxMqucf nutritional; endocrine; and metabolic disorders (8 sources)Hyperuricemia; Translations: [Hyperuricemia without signs of inflammatory arthritis and tophaceous disease]59-19-6399MqvhrpisElohh conditions (1 source)Omphalitis; Translations: [Omphalitis without hemorrhage]08-23-2024 EpisodicOther screening for suspected conditions (not mental disorders or infectious disease) (6 sources)Electrocardiogram abnormal; Translations: [Abnormal electrocardiogram [ECG] [EKG]]Onset: 87-89-2405MkxxwgvkNyzkzvqk of female genital organs (20 sources)Incomplete uterovaginal prolapse; Translations: [Incomplete uterovaginal prolapse]Onset: 095309-43-3673ZnrtxfmKueztrgmg heart disease (20 sources)Pulmonary hypertension; Translations: [Pulmonary hypertension, unspecified]Onset: 774343-87-6850QjjkonpEvbukgtzwoe; intervertebral disc disorders; other back problems (20 sources)Degeneration of thoracic intervertebral disc; Translations: [Other intervertebral disc degeneration, thoracic region]Onset: ChronicThyroid disorders (20 sources)Other specified hypothyroidism; Translations: [Acquired hypothyroidism]Onset: 133222-72-6598FartxeuEgkttndtqzmv (2 sources)Drug therapy yiqbbqe01-12-4329 Past or Other Problems Problem ClassificationProblemDateDocumented DateEpisodic/ChronicCoronary atherosclerosis and other heart disease (20 sources)Patient post percutaneous transluminal coronary angioplasty; Translations: [Coronary angioplasty status]Onset: 863499-43-3174Iajntddy Deficiency and other anemia (20 sources)Anemia; Translations: [Anemia, unspecified]Onset: 17-44-5230Oxcpqffb Deficiency and other anemia (2 sources)Iron deficiency anemia; Translations: [Iron deficiency anemia, unspecified]93-23-7148DqdxwxmgCjshl valve disorders (20 sources)Heart murmur; Translations: [Cardiac murmur, unspecified]Onset: 828219-02-2700FvycopmyHntd disorders (20 sources)Mood disordersOnset: 12-02-2023 Resolved: Other aftercare (1 source)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; Translations: [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 CURRNT USE ANTICOAGULANTS]Onset: 51-11-5586XesprwhaSwqad diseases of kidney and ureters (1 source)Renal impairment; Translations: [Renal insufficiency]EpisodicOther diseases of veins and lymphatics (20 sources)Venous insufficiency of leg; Translations: [Venous insufficiency (chronic) (peripheral)]Onset: 221471-28-3813NgsmtmrrFxviy lower respiratory disease (13 sources)Dyspnea; Translations: [Shortness of breath]Onset: 12-13-2016 99-10-5819NqqzhgwdTtwnz lower respiratory disease (20 sources)Restrictive lung disease; Translations: [Other disorders of lung] Onset: 796870-21-2968WnbionsfCyhky lower respiratory disease (2 sources)Dyspnea on exertion; Translations: [Other forms of dyspnea]05-04-2024 EpisodicSpondylosis; intervertebral disc disorders; other back problems (3 sources)Pain in thoracic spine; Translations: [PAIN IN THORACIC SPINE]Onset: 88-31-0107AgjftbgjXsyrpgj disorders (20 sources)Sick-euthyroid syndrome; Translations: [Sick-euthyroid syndrome] Onset: 141597-23-3052UgfafxwyRaccyhy tract infections (1 source)Urinary tract infection, site not specified; Translations: [UTI SITE NOT SPECIFIED]Onset: 75-20-1865Cktwqibf Results Test NameValueInterpretationReference RangeFacilityInpatient Patient Summaryon 89-30-7816Hurexczcr Patient SummaryInpatient Patient Summary [address] [address] Clinical Summary Person Information Name: PATRICIA BLAKE Age: 75 Years : 1950 Sex: Female PCP: AASHISH LAGUNA MD Marital Status: Single Race: White Ethnicity: Non- or Language: Iraqi Visit Id: Visit Reason: URINARY INCONTENENCE Speciality: Acuity: Enc Type: Outpatient Med Service: Surgery Arrival: 07/07/2025 08:57:46 Discharge: Dispo Type: Address: [facility] 09/09 [facility] [id number] Provider Notes: Diagnosis: Problems Active Morbid obesity with BMI of 40.0-44.9, adult Incomplete bladder emptying OAB (overactive bladder) Overactive bladder Anticoagulated Nocturia Mixed incontinence Stress incontinence Urge incontinence Urinary urgency Frequent urination Nephrolithiasis Hypertension Diabetes Smoking Status: Functional Status: Sensory Deficits: History of Falls: Mobility Assistance Prior to Admission: ADLs: Current Level of Assistance for Self-Care/Mobility: Cognitive Status: Allergies penicillins (Unknown) sulfa drugs (Unknown) lisinopril (Unknown) (Swelling) Laboratory or Other Results This Visit (last charted value for your 07/07/2025 visit) No Laboratory or Other Results This Visit Measurements: Height: 149 cm Weight: 92 kg Blood Pressure: Not Valued / Not Valued BMI: 41.44 kg/m2 Procedures No Procedures Performed or Documented Immunizations No Immunizations Documented This Visit Final Med List: allopurinol (allopurinol 300 mg Tab) apixaban (Eliquis 5 mg oral tablet) 1 Tablets By Mouth 2 times a day. atorvastatin (atorvastatin 10 mg Tab) By Mouth every day. buPROPion (buPROPion 150 mg ER Tab) By Mouth 2 times a day. ciprofloxacin (Cipro 500 mg Tab) Take 1 tab day prior to procedure and 1 tab day of procdure - afterwards. Refills: 0. diltiazem (DilTIAZem (Eqv-Cardizem CD) 120 mg/24 hours oral capsule, extended release) furosemide (Lasix 20 mg Tab) By Mouth every day. gemfibrozil (gemfibrozil 600 mg Tab) By Mouth 2 times a day. isosorbide mononitrate (isosorbide mononitrate 30 mg ER Tab) By Mouth once a day (in the morning). levothyroxine (levothyroxine 150 mcg (0.15 mg) Tab) liothyronine (liothyronine 5 mcg Tab) By Mouth every day. metformin (metformin 1000 mg oral tablet, extended release) By Mouth every day. metoprolol (metoprolol 25 mg ER Tab) By Mouth every day. nitroglycerin (nitroglycerin 0.4 mg sublingual Tab) 1 Tablets Sublingual every 5 minutes as needed for chest pain. Care Team Members: Attending Physician: Niru OSEGUERA MD Consulting Physician: Referring Physician: Niru OSEGUERA MD Follow up: With: Address: When: Niru OSEGUERA [address] [place], [place] [address]Bj, [address], [place] [address] Business (1) Comments: As we discussed, there is no distinct abnormality in the bladder. I feel we can get you on the schedule for a repeat Botox instillation. Your last 1 was back in 2020. Please discuss with Helen so we can get you on the books. Please finish your antibiotics and have a great day. Patient Education Information: EU - Cystoscopy Discharge Instructions (Custom)[facility] Main OR Intraoperative Recordon [id number] OR Intraoperative RecordMain OR Intraoperative Record IntraOp Document Type FTURO Summary Primary Physician: Niru OSEGUERA MD Finalized Date/Time: 07/07/25 09:36:31 Pt. Name: PATRICIA BLAKE Maria C/Sex: 1950 Female Med Rec #: [id number] Physician: Niru OSEGUERA MD Financial #: [id number] Pt. Type: O Room/Bed: / Admit/Disch: 07/07/25 08:57:46 - Institution: Case Times FTURO Entry 1 Patient Times In Room 07/07/25 09:30:00 Out Room 07/07/25 09:41:00 Procedure Times Start 07/07/25 09:33:00 Stop 07/07/25 09:36:00 Anesthesia Times Last Modified By: Elizabeth Saucedo Ii 07/07/25 09:36:23 Case Attendance FTURO Entry 1 Entry 2 Entry 3 Case Attendee Niru OSEGUERA MD, Alfons Ii F McClain CST, Kimberly A Role Performed Surgeon - Primary Auditor Medical Claims - Primary Scrub - Primary Time In 07/07/25 09:30:00 07/07/25 09:30:00 07/07/25 09:30:00 Time Out 07/07/25 09:41:00 07/07/25 09:41:00 07/07/25 09:41:00 Procedure CYSTOSCOPY LOCAL(.) CYSTOSCOPY LOCAL(.) CYSTOSCOPY LOCAL(.) Comments Last Modified By: Elizabeth Saucedo Ii, Alfons Ii F Letrondo, Alfons Ii F 07/07/25 09:36:26 07/07/25 09:36:26 07/07/25 09:36:26 Surgical Procedures FTURO Entry 1 Procedure Description Procedure CYSTOSCOPY LOCAL Modifiers . Surgeon Description CYSTO Primary Procedure Yes Primary Surgeon Niru OSEGUERA MD Start 07/07/25 09:33:00 Stop 07/07/25 09:36:00 Anesthesia Type Local Surgical Service Urology Wound Class 2 - Clean-Contaminated Last Modified By: Elizabeth Saucedo Ii 07/07/25 09:36:27 General Case Data FTURO Pre-Care Text: Classifies surgical wound, implements aseptic technique, initiates traffic control Entry 1 Case Information OR URO 1 FT Case Level None Wound Class 2 - Clean-Contaminated Specialty Urology Preop Diagnosis URINARY INCONTENENCE Postop Same As Preop Yes Postop Diagnosis URINARY INCONTENENCE Outcomes Met? Yes Last Modified By: Elizabeth Saucedo Ii 07/07/25 09:24:16 Post-Care Text: The patient is free from signs and symptoms of infection EU IntraOp - FTURO Pre-Care Text: Implements protective measures prior to operative or invasive procedure, confirms identity before the operative or invasive procedure, verifies operative procedure, surgical site, and laterality Entry 1 EU Perioperative Protocols Procedure(s) CYSTOSCOPY LOCAL(.) Patient Identity Birthday, ID Band Verified (select at Check, Patient least 2): Participation Consents / H and P H&P, Surgery/Procedure Operative Site N/A Verified Consent Marking Verified Surgical Site Yes Laterality Verified n/a Verified Procedure Verified Yes Correct Patient Yes Position Verified Availability Equipment, Medication Time Out Niru OSEGUERA MD, Verified (If Participants Elizabeth Saucedo Ii, Applicable) Candace Bautista CST Time Out Complete 07/07/25 09:33:00 Allergies Reviewed? Yes Allergies Reviewed Self/Patient With Body Position Low Lithotomy Prep Area perineum Prep Agents Betadine Solution Skin. Condition Intact, [place], Warm, & Description unchanged Dry Additional None Specimens Collected Vitals - EU Blood Pressure 142/84 Pulse 71 bpm Respirations 18 br/min SPO2 95 % I&O - EU Outcomes Met? Yes Last Modified By: Elizabeth Saucedo Ii 07/07/25 09:34:30 Post-Care Text: The patient is free from signs and symptoms of injury caused by extraneous objects Sign Out FTURO Entry 1 Before Patient Leaves OR Nurse verbally Yes Nurse verbally Yes confirms with the confirms with the team the name of team that the procedure(s) instrument, sponge, recorded and needle counts are correct (or N/A) Nurse verbally n/a Nurse verbally Yes confirms with the confirms with the team how the team whether there specimen is labeled are any equipment (including patient problems to be name), if applicable addressed Sign Out Complete 07/07/25 09:36:00 Last Modified By: Elizabeth Saucedo Ii 07/07/25 09:36:26 Case Comments Finalized By: Elizabeth Saucedo Ii Document Signatures Signed By: Elizabeth Saucedo Ii 07/07/25 09:36No[facility] OR Preoperative Recordon [id number] OR Preoperative RecordMain OR Preoperative Record Holding Area Document Type FTURO Summary Primary Physician: Niru OSEGUERA MD Finalized Date/Time: 07/07/25 09:23:40 Pt. Name: PATRICIA BLAKE /Sex: 1950 Female Med Rec #: [id number] Physician: Niru OSEGUERA MD Financial #: [id number] Pt. Type: O Room/Bed: / Admit/Disch: 07/07/25 08:57:46 - Institution: Case Times Holding FTURO Pre-Care Text: Verifies consent for planned procedure, identifies individual values and wishes concerning care, includes family members in perioperative teaching Secures patient's records' belongings, and valuables, maintains patient's dignity and privacy, and maintains patient confidentiality Entry 1 In Holding 07/07/25 09:06:00 Outcomes Met? Yes Last Modified By: Luly CARRINGTON, Velma Sanchez 07/07/25 09:06:42 Post-Care Text: The patient participates in decisions affecting his or her perioperative plan of care The patient'sright to privacy is maintained Surgery Checklist FTURO Entry 1 Patient Birthday, ID Band Procedure History and Physical, Identification: Check, Patient Verification: Surgical Consent, With Participation Patient NPO after Midnight: n/a Personal Items: Glasses Complaints of Pain: n/a Skin Integrity Unable to Visualize Vitals - EU Blood Pressure 142/84 Pulse 71 bpm Respirations 18 br/min SPO2 95 % Additional None RN Reviewed Yes Specimens Collected Last Modified By: Elizabeth Saucedo Ii 07/07/25 09:23:39 Finalized By: Elizabeth Saucedo Ii Document Signatures Signed By: Elizabeth Saucedo Ii 07/07/25 09:23NoTri[facility] HospitalOperative Reporton [id number] ReportOperative Report Patient: PATRICIA BLAKE Age: 75 years Sex: Female : 1950 Associated Diagnoses: None Author: Niru OSEGUERA MD Procedure Operative Information Details: Date/ Time: 07/07/2025 09:38:00. Pre-Op Dx: Mixed stress and urge incontinence (YRD82-QR N39.46, Working, Medical), OAB (overactive bladder) (PGR08-RZ N32.81, Working, Medical). Post-Op Dx: Same. Anesthesia Type: Local. Procedure: Local Cystoscopy. Complications: None. Risks/Benefits/Informed Consent: Surgical risks, benefits, details of the procedure have been explained to the patient, Full informed consent has been obtained. Intraoperative Information Prepped: Patient is brought back to the endoscopy suite, Patient is placed in modified dorso/lithotomy position, Patient prepped in the usual fashion with Betadine solution, 2% Xylocaine Jelly is placed per Urethra, After waiting several minutes the Cystoscope is introduced. The Urethra is: Normal. The Bladder is: Normal, No tumors, no stones, nothing suspicious. The ureteral orifices: Show efflux of clear urine. Devices Implanted: None. Removal: Cystoscope is removed, The patient tolerated it well. Postoperative Information Discharge: Patient is discharged home with antibiotic coverage, Follow up arranged, Will get her onschedule for BOTOX, 100 u.[facility] HospitalComment on above:Result Comment: Electronically Signed By: Niru OSEGUERA MD\.br\Date and Time Signed: 07/07/25 09:39 EDTOutpatient Surgery Discharge Instructionon [id number] Surgery Discharge Instruction Outpatient Surgery Discharge Instruction [address] [address] Patient Discharge Instructions PERSON INFORMATION Name: PATRICIA BLAKE Date of : 1950 Current Date: 07/07/2025 09:38:18 PHYSICIANS Admitting Physician: Niru OSEGUERA MD Comment: Discharge Diagnosis: PATRICIA BLAKE has been given the following list of follow-up instructions, prescriptions, and patient education materials: IF UNABLE TO CONTACT YOUR PHYSICIAN AND YOU FEEL IT IS AN EMERGENCY, GO TO THE NEAREST EMERGENCY ROOM OR CALL 911 Follow up: With: Address: When: Niru OSEGUERA [address] [place] [address], [address], [address] [address] [facility] (1) Comments: As we discussed, there is no distinct abnormality in the bladder. I feel we can get you on the schedule for a repeat Botox instillation. Your last 1 was back in 2020. Please discuss with Helen so we can get you on the books. Please finish your antibiotics and have a great day. Comment: PATIENT EDUCATION INFORMATION Instructions: Cystoscopy ??? Voiding after the procedure: there may be some pain, burning, urgency, frequency and blood tinged urine following the procedure. These symptoms usually resolve within 2-5 days. Drink the amount of fluid it takes to keep the urine pink to yellow or clear in color. Drinking enough water and fluids will help to ease any discomfort after your procedure. ??? If you are having problems that seem out of the ordinary, please call. ??? If unable to contact your physician and you feel it is an emergency, go to the nearest emergency room or call 911 ??? Diet ??? you may resume your normal diet. ??? Activity ??? you may resume your normal activities ??? Call if you have a fever over 100 degrees. CECI Gruber [place] L, have received the attached patient education materials/instructions and have verbalized understanding: May we do a follow up call? Yes No I was present when discharge instructions were given Patient Signature Date Clinican/Nurse Signature Date You may receive a survey from [employer] asking you to rate your care experience. Your feedback is important and will help us understand what we do well and how we can improve the quality of care we provide to you, your loved ones and our community. It???s an honor to serve you. [facility]St[facility] HospitalH&P Updateon 07-06-2025H&P UpdateH&P Update Patient: PATRICIA BLAKE Age: 75 years Sex: Female : 1950 Associated Diagnoses: None Author: TIN GASCA, Niru Sanchez Basic Information Summary: The patient presents today for cystoscopic evaluation. She has a longstanding history of overactive bladder and has been on intravesical Botox administration in the past. This has been several years. It was felt indicated to proceed with cystoscopic evaluation to evaluate the bladder itself prior to rescheduling Botox. She had fairly good success with the Botox administration in the past. Full informed consent as part of the record and she wishes to proceed.. Health Status Procedure history: Cystoscopy/Botox 100 ([id number]) on 02/22/2021 at 70 Years. Cystoscopy ([id number]) on 04/24/1998 at 48 Years. Placement of stent in cardiac conduit ([id number]). Comments: 07/27/2019 10:09 EST - Page Lisette ADAMS 11/2016 Cholecystectomy ([id number]). Foot ([id number]). Breast reduction ([id number]). Cataracts ([id number]). Social History Social & Psychosocial Habits Tobacco 06/21/2025 Tobacco Use: Never (less than 100 in l . Allergies: Allergic Reactions (Selected) Severity Not Documented Lisinopril- Unknown and swelling. Penicillins- Unknown. Sulfa drugs- Unknown., Allergies (3) Active Severity Reaction penicillins Unknown sulfa drugs Unknown lisinopril Unknown, Swelling Current medications: (Selected) Prescriptions Prescribed Cipro 500 mg Tab: See Instructions, Take 1 tab day prior to procedure and 1 tab day of procdure - afterwards, # 2 tab(s), Refills(s) 0, Pharmacy: [id number], 149, cm, 06/21/25 13:36:00 EDT,Height/Length Dosing, 92.7, kg, 06/21/25 13:36:00 EDT, Weight Dosing Documented Medications Documented DilTIAZem (Eqv-Cardizem CD) 120 mg/24 hours oral capsule, extended release: Refills(s) 0 Eliquis 5 mg oral tablet: 5 mg = 1 tab(s), Oral, BID, Refills(s) 0 Lasix 20 mg Tab: mg tab(s), Oral, Daily, Refills(s) 0 allopurinol 300 mg Tab: Refills(s) 0 atorvastatin 10 mg Tab: mg tab(s), Oral, Daily, Refills(s) 0 buPROPion 150 mg ER Tab: mg tab(s), Oral, BID, Refills(s) 0 gemfibrozil 600 mg Tab: mg tab(s), Oral, BID, Refills(s) 0 isosorbide mononitrate 30 mg ER Tab: mg tab(s), Oral, qAM, Refills(s) 0 levothyroxine 150 mcg (0.15 mg) Tab: Refills(s) 0 liothyronine 5 mcg Tab: microgram tab(s), Oral, Daily, Refills(s) 0 metformin 1000 mg oral tablet, extended release: mg tab(s), Oral, Daily, Refills(s) 0 metoprolol 25 mg ER Tab: mg tab(s), Oral, Daily, Refills(s) 0 nitroglycerin 0.4 mg sublingual Tab: 0.4 mg = 1 tab(s), SubLingual, q5min, PRN for chest pain, # 100 tab(s), Refills(s) 0, Home Medications (14) Active allopurinol 300 mg Tab atorvastatin 10 mg Tab , Oral, Daily buPROPion 150 mg ER Tab , Oral, BID Cipro 500 mg Tab See Instructions DilTIAZem (Eqv-Cardizem CD) 120 mg/24 hours oral capsule, extended release Eliquis 5 mg oral tablet 5 mg = 1 tab(s), Oral, BID gemfibrozil 600 mg Tab , Oral, BID isosorbide mononitrate 30 mg ER Tab , Oral, qAM Lasix 20 mg Tab , Oral, Daily levothyroxine 150 mcg (0.15 mg) Tab liothyronine 5 mcg Tab , Oral, Daily metformin 1000 mg oral tablet, extended release , Oral, Daily metoprolol 25 mg ER Tab , Oral, Daily nitroglycerin 0.4 mg sublingual Tab 0.4 mg = 1 tab(s), PRN, SubLingual, q5min Problem list: All Problems Diabetes / SNOMED CT 306274140 / Confirmed Hypertension / SNOMED CT 5021339105 / Confirmed Nephrolithiasis / SNOMED CT 785895060 / Confirmed Frequent urination / SNOMED CT 672749744 / Confirmed Urinary urgency / SNOMED CT 080233510 / Confirmed Nocturia / SNOMED CT 712424446 / Confirmed Urge incontinence / SNOMED CT 202820979 / Confirmed Stress incontinence / SNOMED CT 905060492 / Confirmed Overactive bladder / SNOMED CT 7350907257 / Confirmed Anticoagulated / SNOMED CT 523047820 / Confirmed Mixed incontinence / SNOMED CT 24296473 / Confirmed OAB (overactive bladder) / SNOMED CT 3837852228 / Confirmed Incomplete bladder emptying / SNOMED CT 089191353 / Confirmed Morbid obesity with BMI of 40.0-44.9, adult / IMO 86421458 / Possible Problem added automatically by Discern Expert based on clinical documentation Canceled: Weak urine stream / SNOMED CT 063579885, Active Problems (14) Anticoagulated Diabetes Frequent urination Hypertension Incomplete bladder emptying Mixed incontinence Morbid obesity with BMI of 40.0-44.9, adult Nephrolithiasis Nocturia OAB (overactive bladder) Overactive bladder Stress incontinence Urge incontinence Urinary urgencyNoTriHealth Bethesda Butler HospitalComment on above:Result Comment: Electronically Signed By: TIN GASCA, Niru Joy\Date and Time Signed: 07/06/25 18:08 EDTC Urineon 11-30-6750Myirvjhn identified Cx Nom (U)Microbiology PROCEDURE: Urine Culture [R1] SOURCE: U Random BODY SITE: COLLECTED DATE/TIME: 06/21/2025 14:17 EDT RECEIVED DATE/TIME: 06/22/2025 17:26 EDT START DATE/TIME: 06/22/2025 17:26 EDT FREE TEXT SOURCE: SUNIL Harley APRN, SUNIL Harley APRN, Radha Garcia X FINAL REPORTS Final Report [] Verified Date/Time: 06/24/2025 10:54 EDT >100,000 cfu/ml Escherichia coli SUSCEPTIBILITY RESULTS LEGEND: S=Susceptible, N/R=Not Reported, Blank=Data not available, or drug not advisable or tested, I=Intermediate, ESBL=Extended spectrum beta-lactamase, R=Resistant, TFG=Thymidine-dependent strain, ZULLY=Beta-lactamase positive, LISETH=mcg/m;(mg/L), S*=Predicted susceptible interp, R*=Predicted resistant interp EC Antibiotic LISETH Dilutn LISETH Interp Ampicillin <=8 S Ampicillin/ <=8/4 S Sulbactam Cefazolin <=2 S Cefepime <=2 S Ceftazidime/ <=8 S Avibactam Ceftriaxone <=1 S Cefuroxime <=4 S Ciprofloxacin <=0.25 S Ertapenem <=0.5 S Gentamicin <=2 S Levofloxacin <=0.5 S Meropenem <=1 S Nitrofurantoin <=32 S Piperacillin/ <=8 S Tazobactam Tetracycline <=4 S Tobramycin <=2 S Trimethoprim/ <=2/38 S Sulfa Performing Locations R1: This test was performed at: [facility], [address] [place] [address], [address] , , NzjiqxPlrrtrProMedica Memorial HospitalComment on above:Performed By: #### [id number] #### [facility] [address] [place] [address]Lssjetvllb Visit Summaryon 40-99-4167Xaxetnpwpu Visit Summary Ambulatory Visit Summary PATRICIA BLAKE :1950 Visit Date:06/21/2025 Ambulatory Visit Instructions Your Diagnosis OAB (overactive bladder) Mixed incontinence Abnormal urinalysis Your Care Team Attending Physician - SUNIL Harley APRN, Radha Artis Primary Care Physician - LUZ ELENA GASCA, AASHISH Evans This Is Your Medications List allopurinol (allopurinol 300 mg Tab) apixaban (Eliquis 5 mg oral tablet) atorvastatin (atorvastatin 10 mg Tab) buPROPion (buPROPion 150 mg ER Tab) diltiazem (DilTIAZem (Eqv-Cardizem CD) 120 mg/24 hours oral capsule, extended release) furosemide (Lasix 20 mg Tab) gemfibrozil (gemfibrozil 600 mg Tab) isosorbide mononitrate (isosorbide mononitrate 30 mg ER Tab) levothyroxine (levothyroxine 150 mcg (0.15 mg) Tab) liothyronine (liothyronine 5 mcg Tab) metformin (metformin 1000 mg oral tablet, extended release) metoprolol (metoprolol 25 mg ER Tab) nitroglycerin (nitroglycerin 0.4 mg sublingual Tab) Procedures Performed Cystoscopy (02/22/2021), Cystoscopy (04/24/1998), Breast reduction, Cataracts, Cholecystectomy, Foot, Placement of stent in cardiac conduit. Discharge Vitals Heart Rate (Peripheral) 87 Blood Pressure 134/68 Height 149 cm Height 59 in Weight 92.7 kg Weight 204.368 lb BMI 41.75 What to do next Scheduled Follow-Up Appointments Friday 1:00 PM EDT Where: [facility] 2024 9:30 AM EDT Where: [facility] Medications What How Much When Instructions Unchanged allopurinol (allopurinol 300 mg Tab) Unchanged apixaban (Eliquis 5 mg oral tablet) 1 Tablets By Mouth 2 times a day Unchanged atorvastatin (atorvastatin 10 mg Tab) By Mouth Every day Unchanged buPROPion (buPROPion 150 mg ER Tab) By Mouth 2 times a day Unchanged diltiazem (DilTIAZem (Eqv-Cardizem CD) 120 mg/ 24 hours oral capsule, extended release) Unchanged furosemide (Lasix 20 mg Tab) By Mouth Every day Unchanged gemfibrozil (gemfibrozil 600 mg Tab) By Mouth 2 times a day Unchanged isosorbide mononitrate (isosorbide mononitrate 30 mg ER Tab) By Mouth Once a day (in the morning) Unchanged levothyroxine (levothyroxine 150 mcg (0.15 mg) Tab) Unchanged liothyronine (liothyronine 5 mcg Tab) By Mouth Every day Unchanged metformin (metformin 1000 mg oral tablet, extended release) By Mouth Every day Unchanged metoprolol (metoprolol 25 mg ER Tab) By Mouth Every day Unchanged nitroglycerin (nitroglycerin 0.4 mg sublingual Tab) 1 Tablets Sublingual Every 5 minutes as needed for for chest pain Allergies lisinopril (Swelling, Unknown) penicillins (Unknown) sulfa drugs (Unknown) Problems Ongoing - Any problem that you are currently receiving treatment for. Anticoagulated Diabetes Frequent urination Hypertension Incomplete bladder emptying Mixed incontinence Morbid obesity with BMI of 40.0-44.9, adult Nephrolithiasis Nocturia OAB (overactive bladder) Overactive bladder Stress incontinence Urge incontinence Urinary urgency Patient Survey You may receive a survey via text or e-mail asking about your office visit. Please share your experience with us by completing your survey. We appreciate your feedback and thank you for choosing us for your care. Patient Portal You may access all of your results and other medical record information on our secure patient portal. If you are not signed up for this yet, please contact [employer] at [phone] to get signed up today. Language Information Language assistance services are available as needed. [facility] CenterUrology Office/Clinic Noteon [id number] Office/Clinic NoteUrology Office/Clinic Note Chief Complaint re-estabish carediscuss botox HPI Staff Patricia is a 75 yo F new pt here to re-establish care and discuss botox. Prior Dr Oseguera pt, last seen by CAL 02/2022 d/t OAB. S/p botox 100u 02/22/21 and 01/17/20. PVR __ cc BBS: denies dysuria, denies visible blood in urine. Only urinary complaint is leakage but is not able towear pads/depends because dr brizuela said she is allergic to the adhesive. History of Present Illness I have reviewed and verified the staff HPI to be accurate for this encounter. Portions of this record may have been created with voice recognition artificial intelligence software, specifically [employer], [employer] and or [employer]. Substitutions may have occurred due to the inherent limitations of voice recognition and artificial intelligence software. Review of Systems PHQ Score Initial Depression Screen Score: 0 SCORE Physical Exam Vitals & Measurements HR: 87(Peripheral) BP: 134/68 HT: 59 in HT: 149 cm WT: 204.368 lb WT: 92.7 kg BMI: 41.75 General: Well developed, well nourished, in no acute distress. Assessment/Plan former [facility] pt, last OV 02/27/22 1. OAB (overactive bladder) (N32.81: Overactive bladder) BBS 18 PVR 0 denies BM, emptying well, denies heavy intake of bladder irritants, mostly drinking water s/p Botox 100u 01/17/20, 02/22/21 Previously very satisfied w/ bladder sxs after Botox. She feels her last Botox wore off approx 1 yrafter, but she got busy with other medical care and did not make it back to office for f/u. Was previously on Myrbetriq, which she feels worked pretty well for her. She does not wish to start medication while waiting on Botox c/o frequency multiple times/hr, urgency, UUI Changing pants at least 4x/day Pt is interested in repeat botox. Briefly discussed risk V benefits. Will scheduled cysto initially, as it's been several yrs since eval. The risks and benefits for cystoscopy have been discussed. The risks include bleeding, infection, and irritation of the bladder and urinary channel, among others. The patient, after being informed ofprocedural details and after questions have been answered, wishes to proceed. Full informed consenthas been obtained. Will order Local anesthesia. -schedule cysto Ordered: 57101 Measure Post Void residual urine and/or bladder capacity by US- non-imaging Urine Culture Urnls Dip Stick Auto w/o Microscopy POC 92438 2. Mixed incontinence (N39.46: Mixed incontinence) see #1 Ordered: Urine Culture 3. Abnormal urinalysis (R82.90: Unspecified abnormal findings in urine) UA today w/ small leuks Denies UTI sxs. May be contam. However, given upcoming cysto, will culture to ensure she is not infected at time of upcoming procedure. Increase fluid intake, avoid bladder irritants ER for fever, NV, severe flank pain, inability to urinate -UCX, treat if pos Ordered: Urine Culture Follow-up With When Contact Information TIN GASCA, Niru Sanchez, URL [address] [address]- Additional Instructions: cysto Patient Education Urinary Incontinence Overactive Bladder, Adult Problem List/Past Medical History Ongoing Anticoagulated Diabetes Frequent urination Hypertension Incomplete bladder emptying Mixed incontinence Morbid obesity with BMI of 40.0-44.9, adult Nephrolithiasis Nocturia OAB (overactive bladder) Overactive bladder Stress incontinence Urge incontinence Urinary urgency Historical No qualifying data Procedure/Surgical History Cystoscopy (02/22/2021), Cystoscopy (04/24/1998), Breast reduction, Cataracts, Cholecystectomy, Foot, Placement of stent in cardiac conduit. Medications allopurinol 300 mg Tab atorvastatin 10 mg Tab, Oral, Daily buPROPion 150 mg ER Tab, Oral, BID DilTIAZem (Eqv-Cardizem CD) 120 mg/24 hours oral capsule, extended release Eliquis 5 mg oral tablet, 5 mg= 1 tab(s), Oral, BID gemfibrozil 600 mg Tab, Oral, BID isosorbide mononitrate 30 mg ER Tab, Oral, qAM Lasix 20 mg Tab, Oral, Daily levothyroxine 150 mcg (0.15 mg) Tab liothyronine 5 mcg Tab, Oral, Daily metformin 1000 mg oral tablet, extended release, Oral, Daily metoprolol 25 mg ER Tab, Oral, Daily nitroglycerin 0.4 mg sublingual Tab, 0.4 mg= 1 tab(s), SubLingual, q5min, PRN Allergies lisinopril (Swelling, Unknown) penicillins (Unknown) sulfa drugs (Unknown) Social History Tobacco Never (less than 100 in lifetime) Tobacco Use:., 06/21/2025 Family History Family history is unknown Immunizations Vaccine Date Status Comments SARS-CoV-2 (COVID-19) mRNA-1273 vaccine 11/15/2020 Recorded 2 shot SARS-CoV-2 (COVID-19) mRNA-1273 vaccine 10/12/2020 Recorded 1st shot Lab Results Ambulatory Point of Care Results Bilirubin Urine Dipstick: Negative (06/21/25 13:24:00) Blood Urine Dipstick: Negative (06/21/25 13:24:00) Glucose Urine Dipstick: Negative (06/21/ (more content not included)...Normal [facility]:Result Comment: Electronically Signed By: SUNIL Harley APRN, [place] X\.br\Date and Time Signed: 06/21/25 14:18 EDTHEMOGLOBIN A1con [id number] (Bld) [Mass fraction]6.3 %High<5.7Quest DiagnosticsComment on above:Result Comment: For someone without known diabetes, a [...] hemoglobin A1c for diagnosis of diabetes for children.Performed By: #### 496 #### [facility] [address], [address] [place] [address] Scheduler Conveyor: Jaylon Bagley MDT3, FREEniles 43-55-1700Zldt T3 [Mass/Vol]3.8 pg/mLNormal2.3-4.2Quest DiagnosticsComment on above:Performed By: #### 629, 76564, 866 #### [facility] [address], [address] [place] [address] Scheduler Conveyor: Jaylon Bagley MDT4, FREE 39-99-5894Krwy T4 [Mass/Vol]1.8 ng/dLNormal0.8-1.8Quest DiagnosticsComment on above:Performed By: #### 899, 66134, 866 #### [facility] [address], [address] [place] [address] Scheduler Conveyor: Jaylon Bagley MDTSSherman Oaks [facility] 52-87-1907QIL Qn0.03 m[IU]/LLow0.40-4.50 [facility] DiagnosticsComment on above:Performed By: #### 899, 12556, 866 #### [facility] [address], [address] [place] [address] Scheduler Conveyor: Jaylon Bagley MDT3 REVERSE, LC/MS/MSon 67-52-6950U9 REVERSE, LC/MS/MS14 ng/dLNormal8-25Quest DiagnosticsComment on above:Result Comment: This test was developed and its analytical performance characteristics have been determined by [employer], [place]. It has not been cleared or approved by the U.S. Food and Drug Administration. This assay has been validated pursuant to the CLIA regulations and is used for clinical purposes.Performed By: #### [id number] #### [facility] [address] [facility] [place], [place] Scheduler Conveyor: Gian Collins M.D.,PhD #### 899, 866, 859, 35647 #### [facility] [address], [address] [place] [address] Scheduler Conveyor: Jaylon Bagley MDT3, FREE 31-22-8535Lifd T3 [Mass/Vol]3.8 pg/mLNormal2.3-4.2Quest DiagnosticsComment on above:Performed By: #### 91420 #### [facility] [place] [address] Scheduler Conveyor: Carmita Alcala #### 6517, 496, 1720 #### [facility] [address], [address] [place] [address] Scheduler Conveyor: Jaylon Bagley MDT3, TOTALon 77-51-3937U4, PONAF837 ng/dLNormal 76-181Quest DiagnosticsComment on above:Performed By: #### 22546 #### [facility] [address] [facility] [place], [place] Scheduler Conveyor: Gian Collins M.D.,PhD #### 899, 866, 859, 73839 #### [facility] of [address], [address] [place] [address] Scheduler Conveyor: Jaylon Bagley MDT4, FREEon 97-19-3398Pprj T4 [Mass/Vol]1.0 ng/dLNormal0.8-1.8Quest DiagnosticsComment on above:Performed By: #### 60041 #### [facility] [address] [place] [address] Scheduler Conveyor: Carmita Alcala #### 6517, 496, 4630 #### [facility] of [address], [address] [place] [address] Scheduler Conveyor: Jaylon CABANjessica 47-90-6341TMR Qn5.45 m[IU]/LHigh 0.40-4.50Quest DiagnosticsComment on above:Performed By: #### 66096 #### [facility] [address] [place] [address] Scheduler Conveyor: Carmita Alcala #### 6517, 496, 2190 #### [facility] of [address], [address] [place] [address] Scheduler Conveyor: Jaylon Bagley MDALBUMIN, RANDOM URINE W/CREATININEon 74-84-9279GERSWGW, URINE1.3 mg/dLNormalSee Note:Quest DiagnosticsComment on above:Result Comment: Reference Range: Reference Range Not establishedPerformed By: #### 03895 #### [facility] [address] [place] [phone] Scheduler Conveyor: Carmita Alcala #### 6517, 496, 1980 #### [facility] [address], [address] [place] [address] Scheduler Conveyor: Jaylon Bagley MDALBUMIN/CREATININE RATIO, RANDOM URINE35 mg/g creatHigh<30Quest DiagnosticsComment on above:Result Comment: The ADA defines abnormalities in albumin excretion as follows: Albuminuria Category Result (mg/g creatinine) Normal to Mildly increased <30 Moderately increased 30-299 Severely increased > OR = 300 The ADA recommends that at least two of three specimens collected within a 3-6 month period be abnormal before considering a patient to be within a diagnostic category.Performed By: #### 71833 #### [facility] [address] [place] [address] Scheduler Conveyor: Carmita Alcala #### 6517, 496, 6560 #### [facility] [address], [address] [place] [address] Scheduler Conveyor: Jaylon GIORDANOreatinine (U) [Mass/Vol]37 mg/lINvemah30-484 [facility] DiagnosticsComment on above:Performed By: #### 77165 #### [facility] [address] [place] [address] Scheduler Conveyor: Carmita Alcala #### 6517, 496, 2940 #### [facility] [address], [address] [place] [address] Scheduler Conveyor: Jaylon GIORDANOOMPREHENSIVE METABOLIC PANELon 01-14-2025 Albumin [Mass/Vol]4.2 g/dLNormal3.6-5.1Quest DiagnosticsComment on above: Performed By: #### 16685 #### [facility] [address] Scheduler Conveyor: Carmita Alcala #### 6517, 496, 7600 #### [facility] [address], [address] [place] [address] Scheduler Conveyor: Jaylon Bagley MDAlbumin/Globulin [Mass ratio]1.6 {ratio}Normal 1.0-2.5Quest DiagnosticsComment on above:Performed By: #### 16904 #### [facility] [address] [place], [place] [address] Scheduler Conveyor: Carmita Alcala #### 6517, 496, 7600 #### [facility] [address], [address] [place] [address] Scheduler Conveyor: Jaylon Bagley MDALP [Catalytic activity/Vol]64 U/HHiwwwj57-336 [facility] DiagnosticsComment on above:Performed By: #### 00381 #### [facility] [address] Scheduler Conveyor: Carmita Alcala #### 6517, 496, 8590 #### [facility] [address], [address] [place] [address] Scheduler Conveyor: Jaylon Bagley MDALT [Catalytic activity/Vol]24 U/LNormal6-29 [facility] DiagnosticsComment on above:Performed By: #### 93169 #### [facility]-[address] Scheduler Conveyor: Carmita Alcala #### 6517, 496, 7600 #### [facility] [address], [address] [place] [address] Scheduler Conveyor: Jaylon Bagley MDAST [Catalytic activity/Vol]33 U/KIfdmas06-90 [facility] DiagnosticsComment on above:Performed By: #### 53868 #### [facility] [address] [place], [place] [address] Scheduler Conveyor: Carmita Alcala #### 6517, 496, 7600 #### [facility] [address] , [address] [place] [address] Scheduler Conveyor: Jaylon Bagley MDBilirubin [Mass/Vol]0.4 mg/dLNormal0.2-1.2 [facility] DiagnosticsComment on above:Performed By: #### 11287 #### [facility] [address] [place] [address] Scheduler Conveyor: Carmita Alcala #### 6517, 496, 0490 #### [facility] [address], [address] [place] [address] Scheduler Conveyor: Jaylon Bagley MDBUN/CREATININE RATIOSEE NOTE:Normal6-Quest DiagnosticsComment on above:Result Comment: Not Reported: BUN and Creatinine are within reference range.Performed By: #### 43808 #### [facility] [address] [place] [address] Scheduler Conveyor: Carmita Alcala #### 6517, 496, 5980 #### [facility] [address], [address] [place] [address] Scheduler Conveyor: Jaylon Bagley MDCalcium [Mass/Vol]10.2 mg/dLNormal8.6-10.4 [facility] DiagnosticsComment on above:Performed By: #### 81730 #### [facility] [address] [place], [place] [address] Scheduler Conveyor: Carmita Alcala #### 6517, 496, 9530 #### [facility] [address], [address] [place] [address] Scheduler Conveyor: Jaylon Bagley MDChloride [Moles/Vol]105 mmol/ROjapnz10-938 Quest DiagnosticsComment on above:Performed By: #### 39008 #### [facility] [address] [place] [address] Scheduler Conveyor: Carmita Alcala #### 6517, 496, 7600 #### [facility] [address], [address] [place] [address] Scheduler Conveyor: Jaylon Bagley MDCO2 [Moles/Vol]27 mmol/PThwnmo39-73Idigb DiagnosticsComment on above:Performed By: #### 65131 #### [facility] [address] [place] [address] Scheduler Conveyor: Carmita Alcala #### 6517, 496, 7010 #### [facility] [address], [address] [place] [address] Scheduler Conveyor: Jaylon GIORDANOreatinine [Mass/Vol]0.99 mg/dLNormal0.60-1.00 [facility] DiagnosticsComment on above:Performed By: #### 98017 #### [facility] [address] [place] [address] Scheduler Conveyor: Carmita Alcala #### 6517, 496, 9460 #### [facility] [address], [address] [place] [address] Scheduler Conveyor: Jaylon Bagley MDGFR/1.73 sq M.predicted among non-blacks MDRD (S/P/Bld) [Vol rate/Area]59 mL/min/{1.73_m2}Low> OR = 60Quest DiagnosticsComment on above:Performed By: #### 67561 #### [place] [address] Scheduler Conveyor: Carmita Alcala #### 6517, 496, 0540 #### [facility] [address], [address] [place] [address] Scheduler Conveyor: Jaylon Bagley MDGlobulin (S) [Mass/Vol]2.6 g/dLNormal1.9-3.7 [facility] DiagnosticsComment on above:Performed By: #### 91563 #### [facility] [address] [place] [address] Scheduler Conveyor: Carmita Alcala #### 6517, 496, 5280 #### [facility] [address], [address] [place] [address] Scheduler Conveyor: Jaylon Bagley MDGlucose [Mass/Vol]131 mg/dQHcwp82-22Wxuxn DiagnosticsComment on above:Result Comment: Fasting reference interval For someone without known diabetes, a glucose value >125 mg/dL indicates that they may have diabetes and this should be confirmed with a follow-up test.Performed By: #### 47647 #### [facility] [address] [place] [address] Scheduler Conveyor: Carmita Alcala #### 6517, 496, 0700 #### [facility] [address], [address] [place] [address] Scheduler Conveyor: Jaylon Bagley MDPotassium [Moles/Vol]4.3 mmol/LNormal3.5-5.3 [facility] DiagnosticsComment on above:Performed By: #### 36055 #### [facility] [address] [place] [address] Scheduler Conveyor: Carmita Alcala #### 6517, 026, 2470 #### [facility] [address], [address] [place] [address] Scheduler Conveyor: Jaylon Bagley MDProtein [Mass/Vol]6.8 g/dLNormal6.1-8.1Quest DiagnosticsComment on above:Performed By: #### 50660 #### [facility] [address] [place], [place] [address] Scheduler Conveyor: Carmita Alcala #### 6517, 496, 7520 #### [facility] [address], [address] [place] [address] Scheduler Conveyor: Jaylon Bagley MDSodium [Moles/Vol]144 mmol/AWefmnm204-575Dfyiw DiagnosticsComment on above:Performed By: #### 65252 #### [facility] [address] [place] [address] Scheduler Conveyor: Carmita Alcala #### 6517, 496, 7600 #### [facility] [address] [place] [address], [address] [place] [address] Scheduler Conveyor: Jaylon Bagley MDUrea nitrogen [Mass/Vol]24 mg/dLNormal7-25 [facility] DiagnosticsComment on above:Performed By: #### 54072 #### [facility] [place] [address] Scheduler Conveyor: Carmita Alcala #### 6517, 496, 7600 #### [facility] [address] [place] [address], [address] [place] [address] Scheduler Conveyor: Jaylon Bagley MDHEMOGLOBIN A1con 15-16-9597UfY2k (Bld) [Mass fraction]6.1 %High<5.7Quest DiagnosticsComment on above:Result Comment: For someone without known diabetes, a [...] hemoglobin A1c for diagnosis of diabetes for children.Performed By: #### 90821 #### [facility] [address] [place] [address] Scheduler Conveyor: Carmita Alcala #### 6517, 496, 7600 #### [facility] [address], [address] [place] [address] Scheduler Conveyor: Jaylon Bagley MDLIPID PANEL, STANDARDon 94-83-7695Hcyjlvtqkxx [Mass/Vol]106 mg/dLNormal<200Quest DiagnosticsComment on above:Order Comment: FASTING:YES FASTING: YESPerformed By: #### [id number] #### [facility] [place] [address] Scheduler Conveyor: Carmita Alcala #### 6517, 496, 7600 #### [facility] [address] [facility], [address] [place] [address] Scheduler Conveyor: Jaylon Bagley MDCholesterol in HDL [Mass/Vol]28 mg/dLLow> OR = 50Quest DiagnosticsComment on above:Order Comment: FASTING:YES FASTING: YESPerformed By: #### [id number] #### [facility] [address] [place] [address] Scheduler Conveyor: Carmita Alcala #### 6517, 326, 6243 #### [facility] [address] , [address] [place] [address] Scheduler Conveyor: Jaylon Bagley MDCholesterol in LDL [Mass/Vol]52 mg/dLNormal [facility] DiagnosticsComment on above:Order Comment: FASTING:YES FASTING: YESResult Comment: Reference range: <100 Desirable range <100 mg/dL for primary prevention; <70 mg/dL for patients with CHD or diabetic patients with > or = 2 CHD risk factors. LDL-C is now calculated using the Grayson-Tanner calculation, which is a validated novel method providing better accuracy than the Friedewald equation in the estimation of LDL-C. Grayson SS et al. JAMIE. 2013;310(19): 2696-7509 (http://education.Healthcare IT.[employer]/faq/QFU492)Performed By: #### [id number] #### [facility] [address] [place] [address] Scheduler Conveyor: Carmita Alcala #### 6517, 061, 1342 #### [facility] [address] , [address] [place] [address] Scheduler Conveyor: Jaylon Joynerstcaroline.total/Cholesterol in HDL [Mass ratio]3.8 {ratio}Normal<5.0Quest DiagnosticsComment on above:Order Comment: FASTING:YES FASTING: YESPerformed By: #### 67697 #### [facility] [place] [address] Scheduler Conveyor: Carmita Alcala #### 6517, 496, 3490 #### [facility] [address], [address] [place], [place] [address] Scheduler Conveyor: Jaylon ALVARADO HDL DJLBTRWZATV52 mg/dL (calc)Normal<130 Quest DiagnosticsComment on above:Order Comment: FASTING:YES FASTING: YESResult Comment: For patients with diabetes plus 1 major ASCVD risk factor, treating to a non-HDL-C goal of <100 mg/dL (LDL-C of <70 mg/dL) is considered a therapeutic option.Performed By: #### [id number] #### [facility] [address] [place] [address] Scheduler Conveyor: Carmita Alcala #### 6517, 496, 4740 #### [facility] [address], [address] [place] [address] Scheduler Conveyor: Jaylon Bagley MDTriglyceride [Mass/Vol]187 mg/dLHigh<150Quest DiagnosticsComment on above:Order Comment: FASTING:YES FASTING: YESPerformed By: #### 92920 #### [facility] [address] [place] [address] Scheduler Conveyor: Carmita Alcala #### 6517, 496, 5360 #### [facility] [address], [address] [place], [place] [address] Scheduler Conveyor: Jaylon Bagley MDAtlantic Rehabilitation Institute Cultureon 09-51-7562Zbtwaqvg identified Cx Nom (U)ORGANISM: Klebsiella pneumoniae (O:KLEPNE) [place] Count >100,000 Aerobic LISETH Charge (NMIC56) SUSCEPTIBILITY ORGANISM: O:KLEPNE ANTIBIOTIC INTERPRETATION LISETH Amikacin S <16 Amoxacillin/K Clavulanate S <8 Ampicillin/Sulbactam S <4 Aztreonam S <4 Cefazolin S <2 Cefepime S <2 Ceftazidime S <1 Ceftazidime/Avibactam S <4 Ceftolozane/Tazobactam S <2 Ceftriaxone S <1 Cefuroxime S <4 Ciprofloxacin S <0.25 Ertapenem S <0.5 Gentamicin S <2 Levofloxacin S <0.5 Meropenem S <1 Meropenem/Vaborbactam S <2 Nitrofurantoin I 64 Piperacillin/Tazobactam S <8 Tetracycline S <4 Tigecycline S <2 Tobramycin S <2 Trimethoprim/Sulfamethoxazole S <0.5 S = SUSCEPTIBLE I = INTERMEDIATE R = RESISTANT BLANK = DATA NOT AVAILABLE, OR DRUG NOT ADVISABLE OR TESTED R* = RESISTANCE DUE TO EXTENDED SPECTRUM BETA-LACTAMASES ESBL = EXTENDED SPECTRUM BETA-LACTAMASE TFG = THYMIDINE-DEPENDENT STRAIN ZULLY = BETA-LACTAMASE POSITIVE IB = INDUCIBLE BETA-LACTAMASE. APPEARS IN PLACE OF 'S' WITH SPECIES KNOWN TO POSSESS INDUCIBLE BETA-LACTAMASES. POTENTIALLY THEY MAY BECOME RESISTANT TO ALL B-LACTAM DRUGS. PERFORMED BY: [place] [address] PATHOLOGIST KNOT BUMPER BEBE CARBALLO M.D.[facility] [facility] Physician GroupComment on above: Performed By: #### CUU #### [place] [address] USAMM screening mammo BI w/CADon 83-96-3875DK screening mammo BI w/[facility] [address] [place] [address] [address] [place] [address] Mammography Report Signed Patient: Patricia Blake MR#: [id number] : 1950 Acct:[id number] Age/Sex: 74 / F Adm Date: 11/25/24 Loc: [place] Room: Type: [facility] Attending Dr: Angel Ramsey DO Ordering Provider: Angel Ramsey DO Date of Service: 11/25/24 Procedure(s): MM screening mammo BI w/CAD Accession Number(s): ([id number]) MM/MM screening mammo BI w/CAD: SCREENING Copies [...] Savi Prather M.D.11/25/2024 3:02 PM Dictation Location: [facility] Dictated By: Savi Prather MD 11/25/24 1459 Signed By: 11/25/[address] [place] [address] Physician GroupMammography reportOrdered By: Savi Prather on 32-10-2843Jecacjodew imaging studyGRE[facility] [address] [place] [address] Mammography Report Signed Patient: Patricia Blake MR#: [id number] : 1950 Acct:[id number] Age/Sex: 74 / F Adm Date: 5 Loc: [place] Room: Type: [facility] Attending Dr: Angel Ramsey DO Ordering Provider: Angel Ramsey DO Date of Service: 11/25/24 Procedure(s): MM screening mammo BI w/CAD Accession Number(s): ([id number]) MM/MM screening mammo BI w/CAD: SCREENING Copies [...] Savi Prather M.D.11/25/2024 3:02 PM Dictation Location: [facility] Dictated By: Savi Prather MD 11/25/24 1459 Signed By: 11/25/24 1502 [facility] Work Phone: T3 REVERSE, LC/MS/MSon 94-12-1614D5 REVERSE, LC/MS/MS 17 ng/dLNormal05-02Picreel DiagnosticsComment on above:Order Comment: FASTING:NOFASTING: NOResult Comment: This test was developed and its analytical performance characteristics have been determined by [employer] [place]. It has not been cleared or approved by the U.S. Food and Drug Administration. This assay has been validated pursuant to the CLIA regulations and is used for clinical purposes.Performed By: #### [id number] #### [facility] [place] [address] Scheduler Conveyor: Carmita Alcala #### 6075, 372, 9729 #### [facility] [address] [facility], [address] [place] [address] Scheduler Conveyor: Jaylon Bagley MDT3, FREEon 31-18-3795Qcqa T3 [Mass/Vol]3.2 pg/mLNormal2.3-4.2Quest DiagnosticsComment on above:Performed By: #### 92518 #### [facility] [address] [place] [address] Scheduler Conveyor: Carmita Alcala #### 6517, 496, 6270 #### [facility] [place] [address] [address] , [address] [place] [address] Scheduler Conveyor: Jaylon Bagley MDT3, TOTALon 58-67-2298W9, MGHHX014 ng/dLNormal 76-181Quest DiagnosticsComment on above:Performed By: #### 68956 #### [facility] [address] [place] [address] Scheduler Conveyor: Carmita Alcala #### 6517, 496, 5138 #### [facility] [place] [address] [address] , [address] [place] [address] Scheduler Conveyor: Jaylon Bagley MDT4, [facility] 69-88-7776Pklo T4 [Mass/Vol]1.2 ng/dLNormal0.8-1.8Quest DiagnosticsComment on above:Performed By: #### 28594 #### [facility] [address] [place] [address] Scheduler Conveyor: Carmita Alcala #### 6517, 496, 9350 #### [facility] [place] [address] [address] , [address] [place] [address] Scheduler Conveyor: Jaylon Bagley MDCarthage Area Hospitaln 84-72-6090DFQ Qn1.47 m[IU]/LNormal 0.40-4.50Quest DiagnosticsComment on above:Performed By: #### 38656 #### [facility] [address] [place] [address] Scheduler Conveyor: Carmita Alcala #### 6517, 496, 6712 #### [facility] [place] [address] [address] , [address] [place] [address] Scheduler Conveyor: Jaylon Bagley MDXR CHEST 2Von 27-21-8163[place] [id number] XRay Report Signed Patient: PATRICIA BLAKE MR#: [id number] : 1950 Acct:[id number] Age/Sex: 73 / F ADM Date: 03/12/24 Loc: CARD Attending Dr: PACHECO GALINDO Ordering Physician: PACHECO GALINDO Date of Service: 03/12/24 Procedure(s): XR chest 2V Accession Number(s): [id number] cc: AASHISH LAGUNA ; PACHECO GALINDO [place] [address] Patient Name: PATRICIA BLAKE MRN: [id number] date: 1950 Sex: F Assigned Patient Location: CARD Current Patient Location: Accession/Order Number: [id number] Exam Date: 03/12/2024 08:17 Report Date: 03/15/2024 16:50 At the request of: PACHECO GALINDO Procedure: XR chest 2V EXAM: XR chest 2V HISTORY: Angina Class 3 I20.9, Hypertension I10, Diabetes Mellitus COMPARISON: 06/03/2023 TECHNIQUE: Upright PA and lateral chest x-ray FINDINGS: The heart is borderline enlarged with prominence of the central pulmonary vasculature. No acute infiltrate, effusion or pneumothorax is identified. The osseous structures are grossly intact. XR/XR chest 2V IMPRESSION: Borderline cardiac enlargement with increasing prominence of the central pulmonary vasculature. There is no evidence of a focal infiltrate or overt cardiac decompensation, and the overall appearance of the chest is otherwise unchanged. Electronically authenticated by: OLENA STONE Date: 03/15/2024 16:50 Dictated By: Olena Stone M.D. 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 Operator:ANGIEHRadiology, Radiologist, MD - 03/15/2024 [address] [place] [id number] XRay Report Signed Patient: PATRICIA BLAKE MR#: [id number] : 1950 Acct:[id number] Age/Sex: 73 / F ADM Date: 03/12/24 Loc: CARD Attending Dr: PACHECO GALINDO Ordering Physician: PACHECO GALINDO Date of Service: 03/12/24 Procedure(s): XR chest 2V Accession Number(s): [id number] cc: AASHISH LAGUNA ; PACHECO GALINDO [place] [id number] Patient Name: PATRICIA BLAKE MRN: [id number] date: 1950 Sex: F Assigned Patient Location: CARD Current Patient Location: Accession/Order Number: [id number] Exam Date: 03/12/2024 08:17 Report Date: 03/15/2024 16:50 At the request of: PACHECO GALINDO Procedure: XR chest 2V EXAM: XR chest 2V HISTORY: Angina Class 3 I20.9, Hypertension I10, Diabetes Mellitus COMPARISON: 06/03/2023 TECHNIQUE: Upright PA and lateral chest x-ray FINDINGS: The heart is borderline enlarged with prominence of the central pulmonary vasculature. No acute infiltrate, effusion or pneumothorax is identified. The osseous structures are grossly intact. XR/XR chest 2V IMPRESSION: Borderline cardiac enlargement with increasing prominence of the central pulmonary vasculature. There is no evidence of a focal infiltrate or overt cardiac decompensation, and the overall appearance of the chest is otherwise unchanged. Electronically authenticated by: OLENA STONE Date: 03/15/2024 16:50 Dictated By: Olena Stone M.D. 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 Operator: VALE HealthcareRadiology Study observation (narrative)NOMS HealthcareXR CHEST 2V Ordered By: Radiologist Radiology on 74-76-4037[facility] Work Phone: ecg 12-LEADon 89-45-3275[address] [address] Electrocardiograph Report Signed Patient: PATRICIA BLAKE MR#: [id number] : 1950 Acct:[id number] Age/Sex: 73 / F ADM Date: 08/21/23 Loc: RAD Attending Dr: Raissa-Staff Physician Feliciano Ordering Physician: Jean-Paul Paula M.D. 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 Signed By: 08/22/23713 DD/ 22 TD/TT: [employer] Drilling Machine Operator:TBHRadiology, Radiologist, MD - 08/22/2023 [place] [address] Electrocardiograph Report Signed Patient: PATRICIA BLAKE MR#: [id number] : 1950 Acct:[id number] Age/Sex: 73 / F ADM Date: 08/21/23 Loc: MOLLY Attending Dr: Raissa-Staff Physician Feliciano Ordering Physician: Jean-Paul Paula M.D. 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 Signed By: 08/22/23 0714 DD/ 1423 TD/TT: [employer] Drilling Machine Operator: VALE EstesECG 12-LEADOrdered By: Radiologist Radiology on 49-96-7571[facility] Work Phone: ECG 12-LEADon 12-86-3318Upkiannms Study observation (narrative)NOM HealthcareT3, TOTAL (TRIIODOTHYRONINE)on 54-04-7131J8, IAWYA892 ng/qNDmvtzw34-572Otd [facility] GlenbeighComment on above:Performed By: #### CBC #### [facility] [address] [place] [address] Dr. Sami Mcarthur AUTO DIFFon 12-15-9906JRBI #0.0 103/ulNormal0.0-0.1The [facility] System GlenbeighComment on above:Performed By: #### CBC #### [facility] [address] [place] [address] [address] Sami Duransophils/100 WBC (Bld)0.3 %Normal0.2-2.0[facility] Comment on above:Performed By: #### CBC #### [facility] [address] [place] [address] Dr. Sami Sanabria #0.1 103/ulNormal0.0-0.7The [facility] System GlenbeighComment on above: Performed By: #### CBC #### [facility] [address] [place] [address] [address] Sami Sanchezosinophils/100 WBC (Bld)1.2 %Normal0.9-7.0The [facility] Comment on above:Performed By: #### CBC #### [facility] [address] [place] [address] Dr. Sami Sanchezrythrocyte distribution width (RBC) [Ratio]15.7 %Critically high 11.0-15.0The [facility] System GlenbeighComment on above:Performed By: #### CBC #### [facility] [address] [place] [address] Dr. Sami WliliamHematocrit (Bld) [Volume fraction]35.9 %Critically low36.0-48.0 The [facility] System GlenbeighComment on above:Performed By: #### CBC #### [facility] [address] [place] [address] Dr. Sami WilliamHemoglobin (Bld) [Mass/Vol]11.1 g/dLCritically low12.0-16.0The [facility] GlenbeighComment on above:Performed By: #### CBC #### [facility] [address] [place] [address] Dr. Sami Padgett #0.03 10e3/ulNormal0.00-0.03The [facility] GlenbeighComment on above:Performed By: #### CBC #### [facility] [address] [place] [address] Dr. Sami Padgett %0.4 %Normal0.0-0.5The [facility] System GlenbeighComment on above: Performed By: #### CBC #### [facility] [address] [place] [address] Dr. Sami Duarte #1.5 103/ulNormal1.2-3.8The [facility] on above:Performed By: #### CBC #### [facility] [address] [place] [address] Dr. Sami Moodymphocytes/100 WBC (Bld)19.2 %Critically low20.5-60.0The [facility] GlenbeighComment on above:Performed By: #### CBC #### [facility] [address] [place] [address] Dr. Sami KevinUAL DIFF REQNONormalThe [facility] GlenbeighComment on above: Performed By: #### CBC #### [facility] [address] [place] [address] Dr. Sami Salinas (RBC) [Entitic mass]26.9 wfXhwsah77.7-34.0The [facility] System GlenbeighComment on above:Performed By: #### CBC #### [facility] [address] [place] [address] [address] Sami Villanueva (RBC) [Mass/Vol]30.9 g/aAUlsklu55.9-35.2The [facility] GlenbeighComment on above:Performed By: #### CBC #### [facility] [address] [place] [address] Dr. Sami VillanuevaV (RBC) [Entitic vol]87.1 zZPdadvf53.0-99.0The [facility] GlenbeighComment on above:Performed By: #### CBC #### [facility] [address] [place] [address] Dr. Sami Hallman #0.5 103/ulNormal0.3-0.8The [facility] GlenbeighComment on above:Performed By: #### CBC #### [facility] [address] [place] [address] Dr. Sami Salazarocytes/100 WBC (Bld)7.0 %Normal1.7-12.0The [facility] Comment on above:Performed By: #### CBC #### [facility] [address] [place] [address] Dr. Sami Hollis #5.6 103/ulNormal1.4-6.5The [facility] GlenbeighComment on above:Performed By: #### CBC #### [facility] [address] [place] [address] Dr. Sami Bhatutrophils/100 WBC (Bld)71.9 %Kibbdr54.0-75.0The [facility] GlenbeighComment on above:Performed By: #### CBC #### [facility] [address] [place] [address] Dr. Sami Crewslet mean volume (Bld) [Entitic vol]12.1 fLNormal9.5-13.5The [facility] GlenbeighComment on above:Performed By: #### CBC #### [facility] [address] [place] [address] Dr. Sami WilliamPLT213 103/paWfjopa863-498Zxt [facility] GlenbeighComment on above: Performed By: #### CBC #### [facility] [address] [place] [address] Dr. Sami WilliamRBC4.12 106/ulCritically low4.20-5.40The [facility] GlenbeighComment on above:Performed By: #### CBC #### [facility] [address] [place] [address] Dr. Sami WilliamWBC7.7 103/ulNormal4.0-11.0The [facility] GlenbeighComment on above: Performed By: #### CBC #### [facility] [address] [place] [address] Dr. Sami WilliamPROF CHEM 8 (BAS METB)on 61-70-0080Thopp gap [Moles/Vol]15.5 mmol/LNormalThe [facility] GlenbeighComment on above:Performed By: #### TSH, FT3 #### [facility] [address] [place] [address] Dr. Sami WilliamCalcium [Mass/Vol]10.0 mg/dLNormal8.5-10.1The [facility] Comment on above:Performed By: #### TSH, FT3 #### [facility] [address] [place] [address] Dr. Sami WilliamChloride [Moles/Vol]105 mmol/DQuibid11-903Ssr [facility] Comment on above:Performed By: #### TSH, FT3 #### [facility] [address] [place] [address] Dr. Sami WilliamCO2 [Moles/Vol]28.1 mmol/AOhoxhu24.0-32.0The [facility] Comment on above:Performed By: #### TSH, FT3 #### [facility] [address] [place] [address] Dr. Sami WilliamCreatinine [Mass/Vol]0.84 mg/dLNormal0.55-1.02The [facility] GlenbeighComment on above:Performed By: #### TSH, FT3 #### [facility] [address] [place] [address] Dr. Yilan ChangEGFR-AF NICARAGUAN>60Normal>=60The [facility] GlenbeighComment on above:Performed By: #### TSH, FT3 #### [facility] [address] [place] [address] Dr. Sami SanchezGFR-NON AF NICARAGUAN>60Normal>=60The [facility] GlenbeighComment on above:Performed By: #### TSH, FT3 #### [facility] [address] [place] [address] Dr. Sami WilliamGlucose [Mass/Vol]114 mg/dLCritically wysc13-639Pmw [facility] GlenbeighComment on above:Performed By: #### TSH, FT3 #### [facility] [address] [place] [address] Dr. Sami WilliamPotassium [Moles/Vol]3.6 mmol/LNormal3.5-5.1[facility] Comment on above:Performed By: #### TSH, FT3 #### [facility] [address] [place] [address] Dr. Sami WilliamSodium [Moles/Vol]145 mmol/WKkitkd659-549Szt [facility] Comment on above:Performed By: #### TSH, FT3 #### [facility] [address] [place] [address] Dr. Sami WilliamUrea nitrogen [Mass/Vol]21.0 mg/dLCritically high7.0-18.0The [facility]ighComsinai-[facility] on above:Performed By: #### TSH, FT3 #### [facility] [address] [place] [address] Dr. Sami Willams nitrogen/Creatinine [Mass ratio]25.0 mg/mgNormalThe [facility] GlenbeighComment on above:Performed By: #### TSH, FT3 #### [facility] [address] [place] [address] Dr. Sami WilliamSEDebra RATE WESTERGRENon 23-31-1645YQY XOJN362 mm/hrCritically high <=30The [facility] GlenbeighComment on above:Performed By: #### CBC #### [facility] [address] [place] [address] Dr. Sami WilliamURIC ACID SERUMon 20-08-5771Qmtee [Mass/Vol]9.6 mg/dLCritically high2.6-6.0The [facility] GlenbeighComment on above:Performed By: #### TSH, FT3 #### [facility] [address] [place] [address] [address] Sami WilliamCARDIAC STRESS TESTon 58-33-8806THUPXUB STRESS [place] [id number] CARDIAC STRESS TEST PATIENT NAME: PATRICIA BLAKE : 1950 MED REC NO: [id number] ROOM: ACCOUNT NO: [id number] ADMIT DATE: 09/17/2022 PROVIDER: Niru Galindo MD DATE OF STUDY: 09/17/2022 NAME OF TEST: Lexiscan stress test. INDICATION: Chest pain. IMPRESSION: 1. We gave 0.4 mg of Lexiscan intravenously. 2. This was followed in 20 seconds by Cardiolite infusion. 3. There was no chest pain. 4. There was no ST depression. 5. It was an overall negative Lexiscan stress test. 6. Cardiolite to follow. NIRU GALINDO MD GV/V_TTUMA_T Doc#: [id number] CC: Aashish LagunaMain Campus Medical CenterCARDIAC STRESS [place] [id number] CARDIAC STRESS TEST PATIENT NAME: PATRICIA BLAKE : 1950 MED REC NO: [id number] ROOM: ACCOUNT NO: [id number] ADMIT DATE: 09/17/2022 PROVIDER: Kevin Dangelo DATE OF STUDY: 09/17/2022 Cardiovascular Diagnostics Department Ordering Provider: Niru Galindo MD Primary Care Provider: Aashish Laguna MD [...] for significant coronary artery disease. KEVIN DANGELO SB/IGNACIO_EDIT Doc#: Unknown CC: Aashish Galindo MDWright-Patterson Medical Centertress test, lexiscanojessica 83-91-9061Nyfmtm Bruhl, MD - 09/18/2022 10:17 [place] [address] CARDIAC STRESS TEST PATIENT NAME: PATRICIA BLAKE : 1950 MED REC NO: [id number] ROOM: ACCOUNT NO: [id number] ADMIT DATE: 09/17/2022 PROVIDER: Kevin Dangelo DATE OF STUDY: 09/17/2022 Cardiovascular Diagnostics Department Ordering Provider: Niru Galindo MD Primary Care Provider: Aashish Laguna MD [...] for significant coronary artery disease. KEVIN DANGELO SB/ANNA_EDIT Doc#: Unknown CC: Aashish Galindo MD [facility] The [employer] Phone: stress test, lexiscanOrdered By: Kevin Dangelo on [id number] [employer] Phone: nm MYOCARDIAL SPECT REST EXERCISE OR RXon [id number] MYOCARDIAL SPECT REST EXERCISE OR RXRadiology exam is complete. No Radiologist dictation. Please follow up with ordering provider. Final resultNormalMetroHealth [facility] Informationon 09-17-2022 Radiology exam is complete. No Radiologist dictation. Please follow up with ordering provider. PN RIS CONSOLIDATEDCULTURE URINEon [id number] URINEIsolate 1 Klebsiella pneumoniae >100,000 cfu/ml of ORGANISM 1 Klebsiella pneumoniae ANTIBIOTIC M.I.C RX STATUS Ampicillin 16 R F Ampicillin/Sulbactam 4 S F Piperacillin/Tazobactam <=4 S F Cefazolin <=4 S F Ceftazidime <=1 S F Ceftriaxone <=1 S F Ertapenem <=0.5 S F Imipenem <=0.25 S F Amikacin <=2 S F Gentamicin <=1 S F Tobramycin <=1 S F Ciprofloxacin <=0.25 S F Levofloxacin <=0.12 S F Nitrofurantoin 128 R F Trimethoprim/Sulfamethoxazole <=20 S FNormalThe [facility] Glen[facility]ighComment on above:Performed By: #### CBC #### [facility] [address] [place] [address] Dr. Sami Grey [id number] peptide B (Bld) [Mass/Vol]1013.0 pg/mLCritically high<=900.0The [facility]ighComment on above:Performed By: #### HSTROPN, LIPA, BNP, CMP #### [facility] [address] [place] [address] Dr. Sami Mcarthur AUTO DIFFon [id number] #0.0 103/ulNormal0.0-0.1The [facility] GlenbeighComment on above:Performed By: #### TSH, FT3 #### [facility] [address] [place] [address] Dr. Sami WilliamBasophils/100 WBC (Bld)0.3 %Normal0.2-2.0The [facility] Comment on above:Performed By: #### TSH, FT3 #### [facility] [address] [place] [address] Dr. Sami Sanabria #0.1 103/ulNormal0.0-0.7The [facility] Glen[facility]ighComment on above: Performed By: #### TSH, FT3 #### [facility] [address] [place] [address] Dr. Sami Sanchezosinophils/100 WBC (Bld)1.1 %Normal0.9-7.0The [facility] Comment on above:Performed By: #### TSH, FT3 #### [facility] [address] [place] [address] Dr. Sami Sanchezrythrocyte distribution width (RBC) [Ratio]15.7 %Critically high 11.0-15.0The [facility] GlenbeighComment on above:Performed By: #### TSH, FT3 #### [facility] [address] [place] [address] Dr. Sami WilliamHematocrit (Bld) [Volume fraction]35.5 %Critically low36.0-48.0 The [facility] GlenbeighComment on above:Performed By: #### TSH, FT3 #### [facility] [address] [address] [address] Sami WilliamHemoglobin (Bld) [Mass/Vol]11.0 g/dLCritically low12.0-16.0The [facility]ighComment on above:Performed By: #### TSH, FT3 #### [facility] [address] [place] [address] Dr. Sami Padgett #0.04 10e3/ulCritically high0.00-0.03The [facility] Comment on above:Performed By: #### TSH, FT3 #### [facility] [address] [place] [address] Dr. Sami Padgett %0.5 %Normal0.0-0.5The [facility] GlenbeighComment on above: Performed By: #### TSH, FT3 #### [facility] [address] [place] [address] Dr. Sami Duarte #2.0 103/ulNormal1.2-3.8The [facility] GlenbeighComment on above:Performed By: #### TSH, FT3 #### [facility] [address] [place] [address] Dr. Sami Vasquezhocytes/100 WBC (Bld)27.7 %Naswlg37.5-60.0The [facility] GlenbeighComment on above:Performed By: #### TSH, FT3 #### [facility] [address] [place] [address] Dr. Sami KevinUAL DIFF REQNONormalThe [facility]ighComment on above: Performed By: #### TSH, FT3 #### [facility] [address] [place] [address] Dr. Sami Salinas (RBC) [Entitic mass]27.0 lqNlpglx25.7-34.0The [facility] GlenbeighComment on above:Performed By: #### TSH, FT3 #### [facility] [address] [place] [address] Dr. Sami Villanueva (RBC) [Mass/Vol]31.0 g/eQLdkpgn32.9-35.2The [facility] Glen[facility]ighComment on above:Performed By: #### TSH, FT3 #### [facility] [address] [place] [address] Dr. Sami Blue (RBC) [Entitic vol]87.2 iTCjylya82.0-99.0The [facility] GlenbeighComment on above:Performed By: #### TSH, FT3 #### [facility] [address] [place] [address] Dr. Sami Hallman #0.4 103/ulNormal0.3-0.8The [facility] GlenbeighComment on above:Performed By: #### TSH, FT3 #### [facility] [address] [place] [address] Dr. Sami Salazarocytes/100 WBC (Bld)5.3 %Normal1.7-12.0The [facility] Comment on above:Performed By: #### TSH, FT3 #### [facility] [address] [place] [address] Dr. Sami Hollis #4.7 103/ulNormal1.4-6.5The [facility] GlenbeighComment on above:Performed By: #### TSH, FT3 #### [facility] [address] [place] [address] Dr. Sami Bhatutrophils/100 WBC (Bld)65.1 %Jjbyhv76.0-75.0The [facility] GlenbeighComment on above:Performed By: #### TSH, FT3 #### [facility] [address] [place] [address] Dr. Sami Crewslet mean volume (Bld) [Entitic vol]13.1 fLNormal9.5-13.5The [facility] GlenbeighComment on above:Performed By: #### TSH, FT3 #### [facility] [address] [place] [address] Dr. Sami WilliamPLT211 103/ubYxplwt034-489Vhz [facility] GlenbeighComment on above: Performed By: #### TSH, FT3 #### [facility] [address] [place] [address] Dr. Sami WilliamRBC4.07 106/ulCritically low4.20-5.40The [facility] on above:Performed By: #### TSH, FT3 #### [facility] [address] [place] [address] Dr. Sami WilliamWBC7.3 103/ulNormal4.0-11.0The [facility]ighComment on above: Performed By: #### TSH, FT3 #### [facility] [address] [place] [address] Dr. Sami Silva URINE PROFILEon [id number] Ql (U)NegativeNormal NEGATIVESelect Medical [facility] on above:Performed By: #### CBC #### [facility] [address] [place] [address] Dr. Sami WilliamClarity (U)CLEARNormalCLEAREast [facility] Regional HospitalComment on above: Performed By: #### CBC #### [facility] [address] [place] [address] Dr. Sami Saldana (U)LT. YELLOWNormalYELLOWOhioHealth Hardin Memorial Hospitalment on above:Performed By: #### CBC #### [facility] [address] [place] [address] Dr. Sami Sousa micrscopic examination will be performed if indicated. NormalThe [facility] [place] on above:Performed By: #### CBC #### [facility] [address] [place] [address] Dr. Sami WilliamGlucose Ql (U)NegativeNormalNEGATIVEOhioHealth Hardin Memorial Hospitalment on above:Performed By: #### CBC #### [facility] [address] [place] [address] Dr. Sami WilliamHemoglobin Ql (U)NegativeNormalNEGATIVEPromedica Bay Park Hospital on above:Performed By: #### CBC #### [facility] [address] [place] [address] Dr. Sami WilliamKetones Ql (U)NegativeNormalNEGATIVEThe Damaso HospitalComment on above:Performed By: #### CBC #### [facility] [address] [address] [address] Sami WilliamLEUKOCYTESMODERATEAbnormalNEGATIVEEast [facility] Regional HospitalComment on above:Performed By: #### CBC #### [facility] [address] [address] [address] Sami Greytrite Ql (U)PositiveAbnormalNEGMetroHealth [facility] Comment on above:Performed By: #### CBC #### [facility] [address] [address] [address] Sami WilliampH (U)6.5 [pH]Normal5-9The [facility] GlenbeighComment on above: Performed By: #### CBC #### [facility] [address] [place] [address] Dr. Sami WilliamSPEC GRAVITY1.825Rbfvtt6.005-<=1.025The [facility] GlenbeighComment on above:Performed By: #### CBC #### [facility] [address] [place] [address] Dr. Sami Groves PROTEINNegativeNormalNEGATIVE/ TRACEEast [facility] Comment on above:Performed By: #### CBC #### [facility] [address] [place] [address] Dr. Sami Otto MICRO INDINDICATEDNormalThAdena Regional Medical CenterComment on above: Performed By: #### CBC #### [facility] [address] [place] [address] Dr. Sami WilliamUrobilinogen Qn (U)0.2 {Sunni'U}/dLNormal0.2 - 1.0The [facility]ighComment on above:Performed By: #### CBC #### [facility] [address] [place] [address] Dr. Sami WilliamLIPASEon 81-80-1819Izwrfu [Catalytic activity/Vol]121.0 U/LNormal 73.0-393.0The [facility]ighComment on above:Performed By: #### HSTROPN, LIPA, BNP, CMP #### [facility] [address] [place] [address] Dr. Sami Fitch 14(COMP METB)on 32-70-7276Xuzetor [Mass/Vol]3.7 g/dLNormal 3.4-5.0The [facility]ighComment on above:Performed By: #### HSTROPN, LIPA, BNP, CMP #### [facility] [address] [place] [address] Dr. Sami WilliamAlbumin/Globulin [Mass ratio]0.9 {ratio}NormalThe [facility] GlenbeighComment on above:Performed By: #### HSTROPN, LIPA, BNP, CMP #### [facility] [address] [place] [address] Dr. Sami Bales [Catalytic activity/Vol]73 U/TOytgfm02-355Fxg [facility]ighComment on above:Performed By: #### HSTROPN, LIPA, BNP, CMP #### [facility] [address] [place] [address] Dr. Sami Chacon [Catalytic activity/Vol]23 U/WWacnzu02-64Zov [facility]ighComment on above:Performed By: #### HSTROPN, LIPA, BNP, CMP #### [facility] [address] [place] [address] Dr. Sami Russo gap [Moles/Vol]16.4 mmol/LNormalThe [facility] Comment on above:Performed By: #### HSTROPN, LIPA, BNP, CMP #### [facility] [address] [place] [address] Dr. Sami WilliamAST [Catalytic activity/Vol]23 U/NHehdlp67-51Rbw [facility]ighComment on above:Performed By: #### HSTROPN, LIPA, BNP, CMP #### [facility] [address] [place] [address] Dr. Sami WilliamBilirubin [Mass/Vol]0.3 mg/dLNormal0.2-1.0The [facility] Comment on above:Performed By: #### HSTROPN, LIPA, BNP, CMP #### [facility] [address] [address] [address] Sami WilliamCalcium [Mass/Vol]9.4 mg/dLNormal8.5-10.1The [facility] Comment on above:Performed By: #### HSTROPN, LIPA, BNP, CMP #### [facility] [address] [address] [address] Sami WilliamChloride [Moles/Vol]102 mmol/FXnmwrl54-994Gts [facility] Comment on above:Performed By: #### HSTROPN, LIPA, BNP, CMP #### [facility] [address] [place] [address] Dr. Sami WilliamCO2 [Moles/Vol]28.5 mmol/FWutajq97.0-32.0[facility] Comment on above:Performed By: #### HSTROPN, LIPA, BNP, CMP #### [facility] [address] [place] [address] Dr. Sami WilliamCreatinine [Mass/Vol]1.07 mg/dLCritically high0.55-1.02[facility] HospitalComment on above:Performed By: #### HSTROPN, LIPA, BNP, CMP #### [facility] [address] [place] [address] Dr. Sami SanchezGFR-AF NICARAGUAN>60Normal>=60The [facility]beighComment on above:Performed By: #### HSTROPN, LIPA, BNP, CMP #### [facility] [address] [place] [address] Dr. Sami SanchezGFR-NON AF VKIPYVFZ93 mL/min/1.05e8Pdkvrwbqkg low>=60The [facility]ighComment on above:Performed By: #### HSTROPN, LIPA, BNP, CMP #### [facility] [address] [place] [address] Dr. Sami WilliamGlobulin (S) [Mass/Vol]3.9 g/dLNormalThe [facility]ighComment on above:Performed By: #### HSTROPN, LIPA, BNP, CMP #### [facility] [address] [address] [address] Sami WilliamGlucose [Mass/Vol]166 mg/dLCritically mxln70-981Dma [facility]ighComment on above:Performed By: #### HSTROPN, LIPA, BNP, CMP #### [facility] [address] [address] [address] Sami WilliamPotassium [Moles/Vol]3.9 mmol/LNormal3.5-5.1The [facility] Comment on above:Performed By: #### HSTROPN, LIPA, BNP, CMP #### [facility] [address] [address] [address] Sami WilliamProtein [Mass/Vol]7.6 g/dLNormal6.4-8.2[facility] Comment on above:Performed By: #### HSTROPN, LIPA, BNP, CMP #### [facility] [address] [address] [address] Sami WilliamSodium [Moles/Vol]143 mmol/SIgwero356-000Urp [facility] Comment on above:Performed By: #### HSTROPN, LIPA, BNP, CMP #### [facility] [address] [address] [address] Sami WilliamUrea nitrogen [Mass/Vol]21.0 mg/dLCritically high7.0-18.0The [facility]ighComment on above:Performed By: #### HSTROPN, LIPA, BNP, CMP #### [facility] [address] [address] [address] Sami WilliamUrea nitrogen/Creatinine [Mass ratio]19.6 mg/mgNormalThe [facility]ighComment on above:Performed By: #### HSTROPN, LIPA, BNP, CMP #### [facility] [address] [place] [address] Dr. Sami KeysIMEniles [id number] Coag (PPP) [Relative time]1.10 {INR} NormalThe [facility] [place] on above:Performed By: #### TSH, FT3 #### [facility] [address] [address] [address] Sami Bhatt GUIDELINESSEE [facility] on above:Result Comment: DESIRED INR: 2.0 - 3.0 CONDITIONS NOT LISTED BELOW 2.5 - 3.5 FOR PROSTHETIC HEART VALVE REPLACEMENT 2.5 - 3.5 RECURRENT THROMBOSIS Performed By: #### TSH, FT3 #### [facility] [address] [address] [address] Sami WilliamPT Coag (PPP) [Time]11.8 sCritically high9.0-11.6The [facility] on above:Performed By: #### TSH, FT3 #### [facility] [address] [place] [address] Dr. Sami Cain 90-91-1224cFGZ Coag (Bld) [Time]28.1 pKqliju34.3-36.2The [facility] [place] on above:Performed By: #### TSH, FT3 #### [facility] [address] [place] [address] Dr. Sami Crawford, HIGH SENSITIVITYon 49-36-3537QIEXGQ29.3 pg/mLNormal 4.0-51.3The [facility] [place] on above:Result Comment: CUT-OFF POINTS HAVE BEEN ESTABLISHED BASED ON THE FOURTH UNIVERSAL DEFINITIONS OF MYOCARDIAL INFARCTION. THE UPPER REFERENCE LIMIT (URL) OF TROPONIN, DEFINED THE 99TH PERCENTILE OF cTnI DISTRIBUTION IN A REFERENCE POPULATION, HAS BEEN CONFIRMED THE DECISION THRESHOLD FOR [place] DIAGNOSIS.Performed By: #### HSTROPN, LIPA, BNP, CMP #### [facility] [address] [place] [address] Dr. Sami FIELDon [id number]eyPKWZ SEEN [facility] on above:Performed By: #### CBC #### [facility] [address] [place] [address] Dr. Sami Barba identified Cx Nom (U)INDICATEDNormalThe [facility] HospitalComment on above:Performed By: #### CBC #### [facility] [address] [address] [address] Sami WilliamCASTGROVER SEENNormalNONE SEENSelect Medical Specialty [facility] on above:Performed By: #### CBC #### [facility] [address] [address] [address] Sami WilliamCrystals LM Nom (Urine sed)NONE SEENNormalNONE SEENThe [facility] [place] on above:Performed By: #### CBC #### [facility] [address] [address] [address] Gallardo ChangEpithelial cells LM Ql (Urine sed)FEWAbnormalNONE SEEN /RAREThe [facility] [place] on above:Performed By: #### CBC #### [facility] [address] [place] [address] Dr. Sami JenkinsCOUSGROVER SEENNormalNONE SEENThe [facility] [place] on above:Performed By: #### CBC #### [facility] [address] [place] [address] Dr. Sami WilliamRBCNCHANCE SEENAbnormal0-2The [facility] [place] on above: Performed By: #### CBC #### [facility] [address] [place] [address] Dr. Sami WilliamBxwqzFLT48-11YhpbbpsnERGN SEENThe [facility] [place] on above: Performed By: #### CBC #### [facility] [address] [place] [address] Dr. Sami WilliamXR CHEST 1 Von [id number] CHEST 1 VEXAM: XR CHEST 1 V at 1220 hours [...] is essentially unchanged. Electronically authenticated by: OLENA STONE Date: 2022-09-05 12:54NormalThe [facility] AUTO DIFFon [id number] #0.0 103/ulNormal0.0-0.1[facility] HospitalComment on above:Performed By: #### CBC #### [facility] [address] [place] [address] Dr. Sami WilliamBasophils/100 WBC (Bld)0.4 %Normal0.2-2.0[facility] Comment on above:Performed By: #### CBC #### [facility] [address] [place] [address] Dr. Sami Sanabria #0.1 103/ulNormal0.0-0.7The [facility] Glen[facility]ighComment on above: Performed By: #### CBC #### [facility] [address] [place] [address] Dr. Sami Sanchezosinophils/100 WBC (Bld)1.5 %Normal0.9-7.0[facility] Comment on above:Performed By: #### CBC #### [facility] [address] [place] [address] Dr. Sami Sanchezrythrocyte distribution width (RBC) [Ratio]15.8 %Critically high 11.0-15.0[facility] HospitalComment on above:Performed By: #### CBC #### [facility] [address] [place] [address] Dr. Sami WilliamHematocrit (Bld) [Volume fraction]35.8 %Critically low36.0-48.0 The [facility] GlenbeighComment on above:Performed By: #### CBC #### [facility] [address] [place] [address] Dr. Sami WilliamHemoglobin (Bld) [Mass/Vol]10.8 g/dLCritically low12.0-16.0[facility] HospitalComment on above:Performed By: #### CBC #### [facility] [address] [place] [address] Dr. Sami Padgett #0.04 10e3/ulCritically high0.00-0.03The [facility] Comment on above:Performed By: #### CBC #### [facility] [address] [place] [address] Dr. Sami Padgett %0.5 %Normal0.0-0.5The [facility] GlenbeighComment on above: Performed By: #### CBC #### [facility] [address] [place] [address] Dr. Sami Duarte #2.0 103/ulNormal1.2-3.8The [facility] Glen[facility]ighComment on above:Performed By: #### CBC #### [facility] [address] [place] [address] Dr. Sami Vasquezhocytes/100 WBC (Bld)27.1 %Nuuqfa88.5-60.0The [facility] GlenbeighComment on above:Performed By: #### CBC #### [facility] [address] [place] [address] Dr. Sami KevinUAL DIFF REQNONormalThe [facility] Glen[facility]ighComment on above: Performed By: #### CBC #### [facility] [address] [place] [address] Dr. Sami Villanueva (RBC) [Entitic mass]26.7 ckEqhjju23.7-34.0The [facility] Glen[facility]ighComment on above:Performed By: #### CBC #### [facility] [address] [place] [address] Dr. Sami Villanueva (RBC) [Mass/Vol]30.2 g/xMZcrqnz29.9-35.2The [facility]ighComment on above:Performed By: #### CBC #### [facility] [address] [place] [address] Dr. Sami Villanueva (RBC) [Entitic vol]88.4 jWXwpuyu16.0-99.0The [facility]ighComment on above:Performed By: #### CBC #### [facility] [address] [place] [address] Dr. Sami Hallman #0.5 103/ulNormal0.3-0.8The [facility] GlenbeighComment on above:Performed By: #### CBC #### [facility] [address] [address] [address] Sami Salazarocytes/100 WBC (Bld)6.4 %Normal1.7-12.0The [facility] Comment on above:Performed By: #### CBC #### [facility] [address] [place] [address] Dr. Sami Hollis #4.8 103/ulNormal1.4-6.5The [facility] GlenbeighComment on above:Performed By: #### CBC #### [facility] [address] [place] [address] Dr. Sami Bhatutrophils/100 WBC (Bld)64.1 %Pjtrph69.0-75.0The [facility] GlenbeighComment on above:Performed By: #### CBC #### [facility] [address] [place] [address] Dr. Sami Crewslet mean volume (Bld) [Entitic vol]12.8 fLNormal9.5-13.5The [facility] GlenbeighComment on above:Performed By: #### CBC #### [facility] [address] [place] [address] Dr. Sami WilliamPLT204 103/tmDbnaxl134-985Vmf [facility]ighComment on above: Performed By: #### CBC #### [facility] [address] [place] [address] Dr. Sami WilliamRBC4.05 106/ulCritically low4.20-5.40The [facility] GlenbeighComment on above:Performed By: #### CBC #### [facility] [address] [place] [address] Dr. Sami WilliamWBC7.5 103/ulNormal4.0-11.0The [facility] GlenbeighComment on above: Performed By: #### CBC #### [facility] [address] [place] [address] Dr. Sami Mcgarry T4on 37-32-7388Dpnt T4 [Mass/Vol]0.86 ng/dLNormal0.76-1.46 [facility] HospitalComment on above:Performed By: #### VITAD, FT4 #### [facility] [address] [address] [address] Sami WilliamLIPID PROFILEon [id number]-HDL RATIO NORMSEE BELOWMercy Health Anderson HospitalComment on above:Result Comment: 3.3 - 4.4 LOW RISK 4.4 - 7.1 AVERAGE RISK 7.1 - 11.0 MODERATE RISK >11.0 HIGH RISKPerformed By: #### TSH, FT3 #### [facility] [address] [place] [address] Dr. Sami Costaesterol [Mass/Vol]109 mg/dLNormal<=200[facility] Comment on above:Performed By: #### TSH, FT3 #### [facility] [address] [place] [address] Dr. Sami Costaesterol in HDL [Mass/Vol]31 mg/dLCritically tlq08-00WvgEast [facility] Regional HospitalComment on above:Performed By: #### TSH, FT3 #### [facility] [address] [place] [address] Dr. Sami Costaesterol in LDL [Mass/Vol]49.0 mg/dLMercy Health Anderson HospitalComment on above:Performed By: #### TSH, FT3 #### [facility] [address] [place] [address] Dr. Sami Mcdaniel.total/Cholesterol in HDL [Mass ratio]3.5 {ratio} NormalEast Ohio Regional HospitalComment on above:Performed By: #### TSH, FT3 #### [facility] [address] [place] [address] Dr. Sami Scales NORMAL> or = 60 mg/dl - LOW CARDIOVASCULAR RISK <40 mg/dl - HIGH CARDIOVASCULAR RISKMercy Health Anderson HospitalComment on above:Performed By: #### TSH, FT3 #### [facility] [address] [place] [address] Dr. Sami Faulkner CALC NORMALSEE BELOWMercy Health Anderson HospitalComment on above:Result Comment: <100 mg/dl OPTIMAL 100 - 129 mg/dl NEAR OR ABOVE OPTIMAL 130 - 159 mg/dl BORDERLINE HIGH 160 - 189 mg/dl HIGH >190 mg/dl VERY HIGH Performed By: #### TSH, FT3 #### [facility] [address] [place] [address] Dr. Sami WilliamTriglyceride [Mass/Vol]145 mg/dLNormal<=150The [facility] Comment on above:Performed By: #### TSH, FT3 #### [facility] [address] [place] [address] Dr. Sami WilliamVLDL CALC29.0 mg/dLNoTogus VA Medical CenterComment on above: Performed By: #### TSH, FT3 #### [facility] [address] [place] [address] Dr. Sami WilliamMAGNESIUMon 18-23-1692Jnwcrhxbt [Mass/Vol]2.1 mg/dLNormal1.8-2.4 The [facility]ighComment on above:Performed By: #### TSH, FT3 #### [facility] [address] [place] [address] Dr. Sami WilliamPROF 14(COMP METB)on 86-30-9788Fwiyvli [Mass/Vol]3.7 g/dLNormal 3.4-5.0The [facility]ighComment on above:Performed By: #### TSH, FT3 #### [facility] [address] [place] [address] Dr. Sami WilliamAlbumin/Globulin [Mass ratio]1.0 {ratio}NormalThe [facility] Glen[facility]ighComment on above:Performed By: #### TSH, FT3 #### [facility] [address] [place] [address] Dr. Sami WilliamALP [Catalytic activity/Vol]66 U/FQgubet55-170Aep [facility]ighComment on above:Performed By: #### TSH, FT3 #### [facility] [address] [address] [address] Sami Chacon [Catalytic activity/Vol]33 U/UDelqhj63-72Biy [facility]ighComment on above:Performed By: #### TSH, FT3 #### [facility] [address] [address] [address] Sami Toddon gap [Moles/Vol]12.1 mmol/LNormalThe [facility] Comment on above:Performed By: #### TSH, FT3 #### [facility] [address] [address] [address] Sami WilliamAST [Catalytic activity/Vol]35 U/ECmmnnr19-02Atb [facility]ighComment on above:Performed By: #### TSH, FT3 #### [facility] [address] [place] [address] Dr. Sami WilliamBilirubin [Mass/Vol]0.2 mg/dLNormal0.2-1.0The [facility] Comment on above:Performed By: #### TSH, FT3 #### [facility] [address] [address] [address] Sami WilliamCalcium [Mass/Vol]9.4 mg/dLNormal8.5-10.1[facility] Comment on above:Performed By: #### TSH, FT3 #### [facility] [address] [address] [address] Sami WilliamChloride [Moles/Vol]103 mmol/GOwfuct46-086Mex [facility] Comment on above:Performed By: #### TSH, FT3 #### [facility] [address] [address] [address] Sami WilliamCO2 [Moles/Vol]30.9 mmol/SFsqcyb79.0-32.0The [facility] Comment on above:Performed By: #### TSH, FT3 #### [facility] [address] [place] [address] Dr. Sami WilliamCreatinine [Mass/Vol]1.18 mg/dLCritically high0.55-1.02The [facility]ighComment on above:Performed By: #### TSH, FT3 #### [facility] [address] [place] [address] Dr. Sami SanchezGFR-AF BIPBDIXQ18 mL/min/1.53k1Oseyeqfsfp low>=60The [facility]ighComment on above:Performed By: #### TSH, FT3 #### [facility] [address] [place] [address] Dr. Sami SanchezGFR-NON AF ZZHBJBTP57 mL/min/1.42c2Ovwucricva low>=60The [facility]ighComment on above:Performed By: #### TSH, FT3 #### [facility] [address] [place] [address] Dr. Sami WilliamGlobulin (S) [Mass/Vol]3.8 g/dLNormalThe [facility]ighComment on above:Performed By: #### TSH, FT3 #### [facility] [address] [place] [address] Dr. Sami WilliamGlucose [Mass/Vol]113 mg/dLCritically ocjs82-866Wgh [facility]ighComment on above:Performed By: #### TSH, FT3 #### [facility] [address] [place] [address] Dr. Sami WilliamPotassium [Moles/Vol]4.0 mmol/LNormal3.5-5.1[facility] Comment on above:Performed By: #### TSH, FT3 #### [facility] [address] [place] [address] Dr. Sami WilliamProtein [Mass/Vol]7.5 g/dLNormal6.4-8.2The [facility] Comment on above:Performed By: #### TSH, FT3 #### [facility] [address] [place] [address] Dr. Sami WilliamSodium [Moles/Vol]142 mmol/XAwqjra548-674WnoEast [facility] Regional Hospital Comment on above:Performed By: #### TSH, FT3 #### [facility] [address] [place] [address] Dr. Sami WilliamUrea nitrogen [Mass/Vol]28.0 mg/dLCritically high7.0-18.0[facility] Memorial Hospitalment on above:Performed By: #### TSH, FT3 #### [facility] [address] [place] [address] Dr. Sami Willams nitrogen/Creatinine [Mass ratio]23.7 mg/mgNoTogus VA Medical CenterComment on above:Performed By: #### TSH, FT3 #### [facility] [address] [place] [address] Dr. Sami Rivera 78-33-1540YUL1.046 uIU/mLCritically high0.358-3.740The [facility] on above:Performed By: #### TSH, FT3 #### [facility] [address] [place] [address] Dr. Sami WilliamVITAMIN D 25 OHon 19-80-9793JKQ D 25-OH118.0 ng/mLNormalThe [facility]ighComment on above:Performed By: #### VITAD, FT4 #### [facility] [address] [place] [address] Dr. Sami Richardson RANGES[place] BELOWMercy Health Anderson HospitalComsinai-grace hospital on above: Result Comment: <20 ng/mL Vit D deficient 20 - <30 ng/mL Vit D insufficient 30 - 100 ng/mL Vit D sufficient >100 ng/mL Potential ToxicityPerformed By: #### VITAD, FT4 #### [facility] [address] [place] [address] Dr. Sami Mcgarry T3on 37-74-9720MYIH T33.44 pg/mlLNormal2.18-3.98[facility] on above:Performed By: #### TSH, FT3 #### [facility] [address] [place] [address] Dr. Sami Vega T3on 24-08-6207Vdtrmkq T3, Serum18.8 ng/dLNormal9.2-24.1 The [facility] [place] on above:Result Comment: This test was developed and its performance characteristics determined by [facility]. It has not been cleared or approved by the Food and Drug Administration.Performed By: #### CBC #### [facility] [address] [place] [address] Dr. Sami WilliamT3, TOTAL (TRIIODOTHYRONINE)on 54-94-7285U9, JDBLN398 ng/dLNormal 71-180The [facility]ighComment on above:Performed By: #### B6MFQFL #### [facility] [address] [place] [address] Dr. Sami WilliamFRJUAN LUIS T3on 70-99-0156WLTM T32.81 pg/mlLNormal2.18-3.98The [facility]ighComment on above:Performed By: #### TSH, FT3 #### [facility] [address] [place] [address] Dr. Sami Mcgarry T4on 00-63-3257Snbm T4 [Mass/Vol]1.05 ng/dLNormal0.76-1.46 The [facility]ighComment on above:Performed By: #### CBC #### [facility] [address] [place] [address] Dr. Sami WilliamTSHojessica 95-67-4614PQB0.431 uIU/mLNormal0.358-3.740The [facility] [place] on above:Performed By: #### TSH, FT3 #### [facility] [address] [place] [address] Dr. Sami WilliamCARDIAC CATHETERIZATIONon 61-47-5703Ngsrgy[place] [address] CARDIAC CATHETERIZATION PATIENT NAME: PATRICIA BLAKE : 1950 MED REC NO: [id number] ROOM: ACCOUNT NO: [id number] ADMIT DATE: 02/12/2022 PROVIDER: Niru Galindo DATE OF PROCEDURE: 02/12/2022 PROCEDURE: Successful cardioversion [...] normal sinus rhythm with 100 joules. NIRU GALINDO LUCAS/Tung_TACEVANGELIST_01 Doc#: [id number] CC:NormalMerWeill Cornell Medical CenterFree T3on 92-47-2140RA41.02 pg/mLNormal2.00-4.40 [facility]itrick HospitalComment on above:Performed By: #### FT3, FT4, TSH #### [facility] [address], [place] [id number] T4on 47-41-2849Uxyc T4 [Mass/Vol]0.93 ng/dLNormal 0.80-1.80NortMagruder HospitalComment on above:Performed By: #### FT3, FT4, TSH #### [facility] [address], [place] [id number] - T3 TOTALon 59-51-7096B7, NWUUM171 ng/kZQronst58-047 [facility]ckitrick HospitalComment on above:Order Comment: [facility] performed at: [facility], [facility] [address], [address] [place] [address], [address] [place] [address], [id number], Media Marketing Manager: Jaylon Bagley MD [facility] Collection Date/Time: [facility] Results Received Date/Time: [facility] Reported Date/Time: [id number] By: #### 859X, [id number] #### [facility] [address] [place], [place] [address]Y - T3,REVERSE,LC/MS/MSon 22-21-8073P6 REVERSE, LC/MS/MS15 ng/dL Normal8-25NortMagruder HospitalComment on above:Order Comment: [facility] performed at: [facility], [address], [place], [place], , Media Marketing Manager: Gian Collins M.D.,PhD [facility] Date/Time: [id number] [facility] Results Received Date/Time: [facility] Reported Date/Time: [id number] Comment: This test was developed and its analytical performance characteristics have been determined by [employer] [place], [place]. It has not been cleared or approved by the U.S. Food and Drug Administration. This assay has been validated pursuant to the CLIA regulations and is used for clinical purposes.Performed By: #### 859X, 50660 #### [facility] [address] [place], [place] [address]HTEqg 80-63-6349DBI6.920 uIU/mLNormal0.400-4.500Northern [facility] Hospital Of Central ConnecticutComment on above:Performed By: #### FT3, FT4, TSH #### [facility] [address] [place], [place] [id number] Auto DifferentialOrdered By: Pacheco Galindo on 07-12-2021 Absolute Eos #0.10[facility] Phone: absolute Immature GranulocyteNOT REPORTEDOhio Valley HospitalEddy Labs Phone: absolute Lymph #1.70[facility] Phone: absolute Griggs #0.40[facility] Phone: basophils (Bld) [#/Vol]0.00 10*3/uLOhio Valley HospitalEddy Labs Phone: basophils/100 WBC (Bld)1 %0 - 2 %[employer] Phone: differential TypeYESMercBubbleGab Work Phone: eosinophils/100 WBC (Bld)2 %0 - 5 %[employer] Phone: Hematocrit (Bld) [Volume fraction]35.0 %Low36 - 46 % [employer] Phone: Hemoglobin.gastrointestinal spec 1 Ql (Stl)11.4 g/dL Low12.0 - 16.0 g/dLCrowdbaron Phone: Immature GranulocytesNOT REPORTED0 %[employer] Phone: Interpretation and review of laboratory results AbnormalOhio Valley HospitalEddy Labs Phone: lymphocytes/100 WBC (Bld)25 %15 - 40 %[employer] Phone: MCH (RBC) [Entitic mass]26.4 pg26 - 34 pgOhio Valley HospitalEddy Labs Phone: MCHC (RBC) [Mass/Vol]32.6 g/dL31 - 37 g/dLOhio Valley HospitalEddy Labs Phone: MCV (RBC) [Entitic vol]80.9 fL80 - 100 fLCrowdbaron Phone: Monocytes/100 WBC (Bld)7 %4 - 8 %[employer] Phone: NRBC AutomatedNOT REPORTEDper 100 WBCOhio Valley HospitalEddy Labs Phone: platelet distribution width (Bld) [Ratio]17.2 %High 12.1 - 15.2 %[employer] Phone: platelet EstimateNOT REPORTEDOhio Valley HospitalEddy Labs Phone: platelet mean volume (Bld) [Entitic vol]NOT REPORTED 6.0 - 12.0 fLCrowdbaron Phone: platelets (Bld) [#/Vol]187 10*3/uLCrowdbaron Phone: RBC (Bld) [#/Vol]4.33 10*6/uL4.0 - 5.2 m/[employer] Phone: RBC (Bld) [#/Vol]NOT REPORTEDOhio Valley HospitalEddy Labs Phone: segmented neutrophils/100 WBC (Bld)65 %47 - 75 %[employer] Phone: Pegs Absolute4.50[facility] Phone: WBC (Bld) [#/Vol]6.8 10*3/uLMerEddy Labs Phone: WBC (Bld) [#/Vol]NOT REPORTEDOhio Valley HospitalSatori Brands Work Phone: [facility] Phone: comprehensive Metabolic PanelOrdered By: Pacheco Galindo on 59-62-1896Pxvatzb [Mass/Vol]4.6 g/dL3.5 - 5.2 g/dLOhio Valley HospitalEddy Labs Phone: albumin/Globulin RatioNOT REPORTEDMerEddy Labs Phone: aLP (Bld) [Catalytic activity/Vol]78 U/L35 - 104 U/L [employer] Phone: NLT [Catalytic activity/Vol]25 U/L5 - 33 U/LMSpin Ink LTD Work Phone: anion gap [Moles/Vol]12 mmol/L9 - 17 mmol/LMSpin Ink LTD Work Phone: aST [Catalytic activity/Vol]28 U/L<32MerEddy Labs Phone: bilirubin [Mass/Vol]0.17 mg/dLLow0.30 - 1.20 mg/dL [employer] Phone: Falcium [Mass/Vol]10.4 mg/dL8.6 - 10.4 mg/dLOhio Valley HospitalEddy Labs Phone: Hhloride [Moles/Vol]103 mmol/L98 - 107 mmol/LMSpin Ink LTD Work Phone: QO2 [Moles/Vol]26 mmol/L20 - 31 mmol/LMNanoPrecision Holding Companyy [employer] Work Phone: creatinine [Mass/Vol]0.89 mg/dL0.50 - 0.90 mg/dLOhio Valley HospitalEddy Labs Phone: Free PSA/Total PSA [Mass fraction]7.5 g/dL6.4 - 8.3 g/dLOhio Valley HospitalEddy Labs Phone: GFR >60>60 mL/minOhio Valley HospitalEddy Labs Phone: GFR Non->60>60 mL/minOhio Valley HospitalEddy Labs Phone: GFR/1.73 sq M.predicted MDRD (S/P/Bld) [Vol rate/Area] [employer] Phone: comment on above:Average GFR for 70 or more years old: 75 mL/min/1.73sq m Chronic Kidney Disease: <60 mL/min/1.73sq m Kidney failure: <15 mL/min/1.73sq m eGFR calculated using average adult body mass. Additional eGFR calculator available at: http://www.Kidzloop/multiple_crcl_2012.htm GFR/1.73 sq M.predicted MDRD (S/P/Bld) [Vol rate/Area]NOT REPORTEDOhio Valley HospitalEddy Labs Phone: Glucose [Mass/Vol]109 mg/zZRkvz46 - 99 mg/dLOhio Valley HospitalEddy Labs Phone: Interpretation and review of laboratory results AbnormalOhio Valley HospitalEddy Labs Phone: potassium [Moles/Vol]4.3 mmol/L3.7 - 5.3 mmol/LMselect medical specialty hospital - [facility]y [employer] Phone: sodium [Moles/Vol]141 mmol/L135 - 144 mmol/LMselect medical specialty hospital - [facility]y [employer] Phone: Urea nitrogen (BldV) [Mass/Vol]21 mg/dL8 - 23 mg/dL [facility] HospitalRep Phone: Urea nitrogen/Creatinine (Bld) [Mass ratio]24HighOhio Valley HospitalEddy Labs Phone: No Panel InformationOrdered By: Pacheco Galindo on 35-74-1079[employer] Work Phone: TSH with ReflexOrdered By: Pacheco Galindo on 07-12-2021 TSH Qn4.58 m[IU]/[employer] Work Phone: eKG 12 LeadOrdered By: Pacheco Galindo on 06-11-2021 Atrial Vwdr833ZSIWfmve Health Work Phone: Q-T Mfszysbq732 [employer] Work Phone: QRS Kzylaphy08 [employer] Work Phone: QTc Calculation (Sinan)475 [employer] Work Phone: r Xxee63avyxfvuLmjgcTTCP [employer] II Phone: T Xkxv02owwidthYemslGenJuice Phone: Ventricular Hhjj456GEWSedit Health Work Phone: atrial fibrillation with rapid ventricular response Abnormal ECG When compared with ECG of 17-MAY-2019 09:24, Atrial fibrillation has replaced Sinus rhythm Vent. rate has increased BY 45 BPM [facility] HospitalRep Phone: edi, [facility] Incoming Ekg Results From [employer] - 06/11/2021 4:17 PM EDT Atrial fibrillation with rapid ventricular response Abnormal ECG When compared with ECG of 17-MAY-2019 09:24, Atrial fibrillation has replaced Sinus rhythm Vent. rate has increased BY 45 BPMOhio Valley HospitalEddy Labs Phone: [facility] Phone: atrial Djab39EBUMrpgw Health Work Phone: [phone] Ezyg74tlhwqxzDusvmTTCP [employer] II Phone: Z-R Dgedwfre348 [employer] Phone: [phone]-T Ulsekojc156 [employer] Phone: QRS Vhhvnaqw26 [employer] Phone: QTc Calculation (Bazett)423 msMuc medical center [employer] Work Phone: r Zusm15wztkcmfLgoam Etece Phone: T Jrgm66natnfryMfugw Ete[employer] Phone: Ventricular Onto30USFCdfmu E[employer] Phone: Poor data quality, interpretation may be adversely affected Normal sinus rhythm Cannot rule out Anterior infarct , age undetermined Abnormal ECG When compared with ECG of 11-JUN-2021 10:00, (unconfirmed) Sinus rhythm has replaced Atrial fibrillation Vent. rate has decreased BY 39 BPM [facility]Rep Phone: eекатерина, [facility] Incoming Ekg Results From [employer] [place] - 06/11/2021 4:17 PM EDT Poor data quality, interpretation may be adversely affected Normal sinus rhythm Cannot rule out Anterior infarct , age undetermined Abnormal ECG When compared with ECG of 11-JUN-2021 10:00, (unconfirmed) Sinus rhythm has replaced Atrial fibrillation Vent. rate has decreased BY 39 BPMOhio Valley HospitalEddy Labs Phone: [facility] [employer] Phone: pOC Glucoseon 07-55-4281Ylotmjc [Mass/Vol]132 mg/dL High65 - 99 mg/dLOhioHealthInterpretation and review of laboratory results AbnormalOhioHealthCBC Auto Differentialon 24-15-4098Galcgwwwf (Bld) [#/Vol]0.00 10*3/uLMercy Health Defiance Hospital, KYBasophils/100 WBC (Bld)0 %0 - 2 %[facility], [place] Differential TypeYESMUniversity Hospitals Geauga Medical Center, KYEosinophils (Bld) [#/Vol]0.10 10*3/uL [facility], KYEosinophils/100 WBC (Bld)2 %0 - 5 %[facility], [place] Erythrocyte distribution width (RBC) [Ratio]16.0 %High12.1 - 15.2 %[facility], KYHematocrit (Bld) [Volume fraction]33.4 %Low36 - 46 %[place], [place] Hemoglobin (Bld) [Mass/Vol]10.8 g/dLLow12 - 16 g/dLNew [place], [place] Interpretation and review of laboratory resultsAbnormalNew [place], [place] Lymphocytes (Bld) [#/Vol]1.90 10*3/[facility] WYLymphocytes/100 WBC (Bld)26 %15 - 40 %[facility] CenterH (RBC) [Entitic mass]26.6 pg26 - 34 pg [facility], WYMCHC (RBC) [Mass/Vol]32.4 g/dL31 - 37 g/dLMercy Health Defiance Hospital, WYMCV (RBC) [Entitic vol]82.2 fL80 - 100 fLMercy Health Defiance Hospital WYMonocytes (Bld) [#/Vol]0.50 10*3/[facility], WYMonocytes/100 WBC (Bld)8 %4 - 8 %[facility] WYPlatelet mean volume (Bld) [Entitic vol]NOT REPORTED6 - 12 fLMercy Health Defiance Hospital, WYPlatelets (Bld) [#/Vol]209 10*3/[facility], WYPlatelets (Bld) [#/Vol]NOT REPORTEDMercy Health [facility], WYRBC (Bld) [#/Vol]4.07 10*6/uL4 - 5.2 m/[facility], WYRBC morphology finding Nom (Bld)NOT REPORTEDMercy Health Defiance Hospital, WYSegmented neutrophils/100 WBC (Bld)64 %47 - 75 %[facility], WYSegs Absolute4.60[facility], WYWBC (Bld) [#/Vol]NOT REPORTEDper 100 WBC [facility], WYWBC (Bld) [#/Vol]7.2 10*3/[facility], WYWBC MorphologyNOT REPORTEDMercy Health Defiance Hospital WYComprehensive Metabolic Panelon 53-96-9386Iecxixk [Mass/Vol]4.5 g/dL3.5 - 5.2 g/dLMercy Health- [place], [place] Albumin/Globulin [Mass ratio]NOT REPORTEDMercy Health Defiance Hospital, KYALP [Catalytic activity/Vol]76 U/L35 - 104 U/LMUniversity Hospitals Geauga Medical Center, KYALT [Catalytic activity/Vol] 16 U/L5 - 33 U/LMCorey Hospital [place], KYAnion gap [Moles/Vol]12 mmol/L9 - 17 mmol/L [facility], KYAST [Catalytic activity/Vol]20 U/L<32[facility], [place] Bilirubin Ql (U)0.27 mg/dLLow0.3 - 1.2 mg/dLMercy Health Defiance Hospital, KYBun/Cre Ratio37 HighMercy Health Defiance Hospital, KYCalcium [Mass/Vol]10.8 mg/dLHigh8.6 - 10.4 mg/dLMercy Health Defiance Hospital, KYChloride [Moles/Vol]104 mmol/L98 - 107 mmol/LMUniversity Hospitals Geaug[facility], [place] CO2 [Moles/Vol]26 mmol/L20 - 31 mmol/LMUniversity Hospitals Geauga Medical Center, KYCreatinine [Mass/Vol] 0.78 mg/dL0.5 - 0.9 mg/dLMercy Health Defiance Hospital, KYGFR >60>60 mL/min [facility], KYGFR Non->60>60 mL/minMercy Health Defiance Hospital, [place] GFR/1.73 sq M predicted among non-blacks MDRD (S/P/Bld) [Vol rate/Area]NOT REPORTEDMercy Health Defiance Hospital, WYGFR/1.73 sq M predicted among non-blacks MDRD (S/P/Bld) [Vol rate/Area][facility], KYComment on above:Average GFR for 70 or more years old: 75 mL/min/1.73sq m Chronic Kidney Disease: <60 mL/min/1.73sq m Kidney failure: <15 mL/min/1.73sq m eGFR calculated using average adult body mass. Additional eGFR calculator available at: http://www.Kidzloop/multiple_crcl_2012.htm Glucose [Mass/Vol]124 mg/gVQtft47 - 99 mg/dLMercy Health Defiance Hospital, KYPotassium [Moles/Vol]4.0 mmol/L3.7 - 5.3 mmol/LMUniversity Hospitals Geaug[facility], WYProtein [Mass/Vol]8.2 g/dL6.4 - 8.3 g/dLMercy Health Defiance Hospital, WYSodium [Moles/Vol]142 mmol/L135 - 144 mmol/LMUniversity Hospitals Geauga Medical Center, WYUrea nitrogen [Mass/Vol]29 mg/dLHigh8 - 23 mg/dLNew [place], KYLipid Panelon 44-42-8873Kolkirpplcm [Mass/Vol]112 mg/dL<200[place], KYComment on above: Cholesterol Guidelines: <200 Desirable 200-240 Borderline >240 Undesirable Cholesterol in HDL [Mass/Vol]34 mg/dLLow>40[place], KYComsinai-grace hospital on above: HDL Guidelines: <40 Undesirable 40-59 Borderline >59 Desirable Cholesterol in LDL [Mass/Vol]55 mg/dL0 - 130 mg/dLNew [place], KYComsinai-grace hospital on above: LDL Guidelines: <100 Desirable 100-129 Near to/above Desirable 130-159 Borderline >159 Undesirable Direct (measured) LDL and calculated LDL are not interchangeable tests. Cholesterol in VLDL [Mass/Vol]NOT REPORTED1 - 30 mg/dL[place], [place] Cholesterol.total/Cholesterol in HDL [Mass ratio]3.3 {ratio}<5[place], KYTriglyceride [Mass/Vol]113 mg/dL<150[place], KYComsinai-grace hospital on above: Triglyceride Guidelines: <150 Desirable 150-199 Borderline 200-499 High >499 Very high Based on AHA Guidelines for fasting triglyceride, June 2012. Otheron 73-42-6894Adtinbprdjfdwg and review of laboratory resultsAbnormalMercy Health Defiance Hospital, WYImmature granulocytes (Bld) [#/Vol]NOT REPORTEDNew [place], KYPatient Fasting?on 19-29-2096Issiwin Fasting?yes[place], [place] Vital Signs Date TimeVital SignValuePerforming QuhizobcfDwpjnfgy58-56-8872 13:57-0400Body actsrp660.6 Judy Laguna MD Work Phone: NORusk Rehabilitation CenterHdeewgevsr00-83-4776 13:57-0400Body mass index (BMI) [Ratio]41.5 kg/a1NcbjjhAashish Laguna MD Work Phone: [phone] [place], [place] [address]70[address]10-23-2025 13:57-0400Body buuffo14.63 kgAashish Laguna MD Work Phone: [phone])[facility] [place] [place], [place] [address]Yhvmmdcbxp76-65-7484 13:57-0400Diastolic blood pazpklpl78 mm[Hg]Aashish Laguna MD Work Phone: [phone])[facility] [place] [place], [place] [address]Fidfasrwyf49-89-4592 13:57-0400Heart rate67 /min Aashish Laguna MD Work Phone: [phone])[facility] [place] [place], [place] [address]Fhieesyyyf69-48-6807 13:57-4528KnM7% (BldA) [Mass fraction]97 %Aashish Laguna MD Work Phone: [phone])[facility] [place] [place], [place] [address]Lztkaqfkin54-33-1426 13:57-0400Systolic blood ahpnfzqh902 mm[Hg]Aashish Laguna MD Work Phone: [phone] [place], [place] 670[address]8-21-2025 14:22-0400Body ylcrxz579.6 cmEnahum Laguna MD Work Phone: [phone] [place], [place] 670[address]8-21-2025 14:22-0400Body mass index (BMI) [Ratio]42.32 kg/f4NkpzrsAashish Laguna MD Work Phone: [phone] [place], [place] 6[address]8-21-2025 14:22-0400Body cpylmw38.44 kgAashish Laguna MD Work Phone: 1(264)[address] [place], [place] 6702608-13-2025 14:01-0400Body eqkkvr760.6 Judy Laguna MD Work Phone: 1(301)[address] [place], [place] 6702608-13-2025 14:01-0400Body mass index (BMI) [Ratio]42.42 kg/f1JjhmqzAashish Laguna MD Work Phone: 1(759)[facility] [place] [place], [place] [address]Gfkdyhvkbk06-36-7111 14:01-0400Body ckkeec81.67 kgAashish Laguna MD Work Phone: 1(080)[address] [place], [place] 6702605-08-2025 14:31-0400Body .6 cmEnahum Laguna MD Work Phone: [phone] [place], [place] [address]Inotywjqki19-31-5053 14:31-0400Body mass index (BMI) [Ratio]41.42 kg/e1AmbymqAashish Laguna MD Work Phone: 1(120)[address]05-08-2025 14:31-0400Body hcabnp46.44 kgAashish Laguna MD Work Phone: 1(396)[address] [place], [place] [address]Xcjzvyofye84-45-8253 14:31-0400Diastolic blood yypuinum50 mm[Hg]Aashish Laguna MD Work Phone: 1(915)[address]05-08-2025 14:31-0400Heart rate95 /min Aashish Laguna MD Work Phone: 1(126)[address] [place], [place] [address]Sbtmppewny08-06-5543 14:31-1719MqF8% (BldA) [Mass fraction]98 %Aashish Laguna MD Work Phone: 1(465)[address] [place], [place] [address]Aikxduhhya96-14-6329 14:31-0400Systolic blood mm[Hg]Aashish Laguna MD Work Phone: 1(605)[address]04-21-2025 11:38-0400Body mqvzka010.6 Judy Laguna MD Work Phone: 1(201)[address] [place], [place] [address]Rinkcofyjj87-85-1308 11:38-0400Body mass index (BMI) [Ratio]42.32 kg/i7UglmemAashish Laguna MD Work Phone: 1(864)[address] [place], [place] [address]Kjsqevxqgj79-54-5628 11:38-0400Body dgoyqz04.44 kgAashish Laguna MD Work Phone: 1(681)[address] [place], [place] [address]Vulbgwouuq98-92-7329 11:38-0400Heart wzby037 /min Aashish Laguna MD Work Phone: 1(395)[address] [place], [place] [address]Hboosquyuh82-48-3663 11:38-2961ZtF8% (BldA) [Mass fraction]97 %Aashish Laguna MD Work Phone: 1(295)[address]02-18-2025 14:32-0500Body sdzgem469.8 cmEnahum Laguna MD Work Phone: [facility] HospitalEjwvmawgju60-68-8890 14:32-0500Body mass index (BMI) [Ratio]40.96 kg/a1DavlirAashish Laguna MD Work Phone: [facility] HospitalTndhsqoaxy80-35-9774 14:32-0500Body .35 kgAashish Laguna MD Work Phone: [facility] HospitalQtfvrrhlid15-17-0104 13:34-0500Body zveqcn761.6 cmWicyndi Ramsey DO Work Phone: [facility] HospitalUxgopyxylw79-87-2444 13:34-0500Body mass index (BMI) [Ratio]42.73 kg/f8CjimffiAngel Ramsey DO Work Phone: [facility] HospitalEjpreeiaii90-25-5520 13:34-0500Body .35 kgWicyndi Ramsey DO Work Phone: [facility] HospitalQcscehwzgk56-32-1761 13:34-0500Diastolic blood uqzchmvk85 mm[Hg]Angel Ramsey DO Work Phone: [facility] HospitalXqwrgybdzn30-85-4544 13:34-0500Systolic blood taoqiqqd740 mm[Hg]Angel Ramsey DO Work Phone: [facility] HospitalEhdekicukm74-08-3743 14:25-0500Body xejgnf294.8 cmEnahum Laguna MD Work Phone: [facility] HospitalSyehzjhbbz95-19-7476 14:25-0500Body mass index (BMI) [Ratio]43.13 kg/k8JkkgaiAashish Laguna MD Work Phone: 1(064)421-[address] [place], [place] [address]Aoclakkaoe96-34-1310 14:25-0500Body cxguho62.34 kgAashish Laguna MD Work Phone: 1(281)522-[address] [place], [place] [address]Leuybvvpkp83-59-5106 14:25-0500Diastolic blood axoipzby23 mm[Hg]Aasihsh Laguna MD Work Phone: [place] [address]Hmxjwtrtau78-16-2080 14:25-0500Heart rate82 /min Aashish Laguna MD Work Phone: 1(567)[address] [place], [place] 6702611-13-2024 14:25-5847IrR0% (BldA) [Mass fraction]98 %Aashish Laguna MD Work Phone: 1(575)[address] [place], [place] 6702611-13-2024 14:25-0500Systolic blood tigbyqdb379 mm[Hg]Aashish Laguna MD Work Phone: 1(114)[address] [place], [place] 6702609-04-2024 14:21-0400Body brzrno567.8 cmEnahum Laguna MD Work Phone: 1(520)[address] [place], [place] 6702609-04-2024 14:21-0400Body mass index (BMI) [Ratio]43.13 kg/y9FkjnynAashish Laguna MD Work Phone: 1(183)[address] [place], [place] 6702609-04-2024 14:21-0400Body dckoub82.34 kgAashish Laguna MD Work Phone: 1(040)[address] [place], [place] 6702608-27-2024 14:29-0400Body xmrmqo878.8 cmEnahum Laguna MD Work Phone: 1(242)[address] [place], [place] 6702608-27-2024 14:29-0400Body mass index (BMI) [Ratio]43.13 kg/m5AnjtmkAashish Laguna MD Work Phone: 1(420)[address] [place], [place] 6702608-27-2024 14:29-0400Body .34 kgAashish Laguna MD Work Phone: 1(216)[address] [place], [place] 6702602-07-2024 13:56-0500Body fvzhdu933.8 cmEnahum Laguna MD Work Phone: 1(794)[address] [place], [place] 6702602-07-2024 13:56-0500Body mass index (BMI) [Ratio]41.75 kg/c4UyrrveAashish Laguna MD Work Phone: 1(459)[address] [place], [place] 6702602-07-2024 13:56-0500Body gkclxy66.16 kgAashish Laguna MD Work Phone: 1(078)[address] [place], [place] 6702601-10-2023 10:22-0500Diastolic blood tefzupvt67 mm[Hg][facility]01-10-2023 10:22-0500Heart rate 102 /minMwh [facility]01-10-2023 10:22-0500Systolic blood ejdcfwvo894 mm[Hg][facility]06-22-2022 13:23-0400Blood Pressure LocationJENNIFER LOUANN [facility] 06-22-2022 13:23-0400Diastolic blood skukkryw74 mm[Hg] FRED LEW [facility] 06-22-2022 13:23-0400Heart rate72 /minLANDYNNIFER LOUANN [facility] 06-22-2022 13:23-0400Systolic blood mm[Hg] FRED LEW [facility] 06-07-2022 11:14-0400Diastolic blood nlsduerk15 mm[Hg] [facility]06-07-2022 11:14-0400Heart rate67 /minMwh [facility]06-07-2022 11:14-0400Respiratory rate18 /minMwh [facility]06-07-2022 11:14-0935ZlX7% (BldA) [Mass fraction]98 %[facility] HospitalMimvi [facility] HOSPITALOGISYY72-94-8717 11:14-0400Systolic blood mm[Hg] [facility]10-04-2021 11:42-0400Diastolic blood mm[Hg][facility] [employer] Work Phone: 1(144) 930-173510-04-2021 11:42-0400Heart rate83 /minMwh [facility] Work Phone: 1(609) 970-665710-04-2021 11:42-0400Respiratory rate21 /minFormerly [facility] [employer] Work Phone: 1(211) 183-642410-04-2021 11:42-1782NgC5% (BldA) [Mass fraction]96 % [facility] [employer] Work Phone: 1(314) 732-436710-04-2021 11:42-0400Systolic blood fypkxiqs248 mm[Hg] [facility] Work Phone: 1(171) 197-440309-11-2019 10:52-0400BP Cuvrlevtm19 mm[Hg]Niru OfhwmhuAieuQsqlpc97-63-6520 10:52-0400BP Rjuxcati886 mm[Hg]Niru LocalVox MediaSt. Charles HospitalNegcMivnvu05-40-9215 10:52-0400Pulse (Heart Rate)60 /minH[place] LocalVox MediaSt. Charles HospitalEiqgXxwxms89-96-7413 10:52-0400Pulse Dldqebjs42 %[place] [facility] MediaPro[facility] 05-19-2019 06:25-0400BMI (Body Mass Index)43.61 kg/a0Zhqgzwa LocalV[facility] MediaProMedica [facility] 05-19-2019 06:25-0400Body dzeipf234.69 kgH[place] GbxzblkCtphNnuxqa80-90-9596 06:25-0332Prxkdc430.9 cmH[place] NysrrfdXcxxDepdmb33-33-3768 06:25-0400 Respiratory Rate16 /minUnityPoint Health-Trinity BettendorfOhgtbhwLtxiSibgjo76-01-1082 06:25-0400Body Osrnmpulaff01.9 [degF]Niru LocalV[facility] MediaProMedica [facility] Encounters Encounter DateEncounter TypeCare ProviderFacilityStart: 07-07-2025 End: 18-12-6615ivjomlwoevBjplijd P COOKFacility:FTMCStart: 06-30-2025 End: 62-00-7322Owlathiza Laguna MD Work Phone: [facility] Family MedicineStart: 06-30-2025 End: 38-76-8495Vhmwectiarra Laguna MD Work Phone: [facility] [place] [facility] Family MedicineStart: 06-30-2025 End: 79-21-0851Ieknmz outpatient visit 25 minutesEdramu Laguna MD Work Phone: NO Davidk[place] Sw[facility] CenterComment on above: Essential hypertension (Primary Dx); Stage 3a chronic kidney disease ([facility]-HCC); Hyperlipidemia, mixed; Type 2 diabetes mellitus with stage 3a chronic kidney disease, without long-term current use of insulin (HCC); Microalbuminuric diabetic nephropathy (HCC); Hyperuricemia; Pulmonary hypertension (HCC); Recurrent major depressive disorder, in partial remission; Coronary artery disease involving [place] coronary artery of [place] heart without angina pectoris; Morbid obesity ([facility]-HCC)Start: 06-30-2025 End: 62-90-6626yyvwgpdwzpOEGXJI J HEMEYERNot AvailableStart: 06-21-2025 End: 16-56-2084eeylcgvmvfMqcxfq X OrzechFacility:FTMCStart: 06-21-2025 End: 78-42-1217zkvmnfapjhKovzba X OrzechFacility:EU [place]uskyStart: 06-21-2025 End: 05-53-6577Hqlavry encounter procedureAurora X Orzech [facility] Start: 04-28-2025 End: 39-07-0352ksiviadewoBAJZOB J HEMEYERNot AvailableStart: 04-28-2025 End: 42-82-7412Ghsydj flowsMina Laguna MD Work Phone: [facility] MedicineStart: 04-28-2025 End: 16-09-0798Qoqnwc flowsMina Laguna MD Work Phone: [facility] MedicineStart: 04-28-2025 End: 29-15-9787Ztpkmyi encounter procedureAashish Laguna MD Work Phone: [facility] MedicineComment on above: Bilateral chronic knee pain (Primary Dx); Arthritis of knee, right; Arthritis of knee, left; Morbid obesity (CMS-HCC); BMI 40.0-44.9, adult ([facility]Start: 04-20-2025 End: 91-52-2802Bnmocb Tr Laguna MD Work Phone: [facility] MedicineStart: 04-20-2025 End: 03-83-5507Wnufqe Tr Laguna MD Work Phone: NOVJ [place] [facility] MedicineStart: 04-20-2025 End: 52-97-0706Uehsgk outpatient visit 25 minutesAashish Laguna MD Work Phone: NOFI [facility] MedicineComment on above: Acquired hypothyroidism (Primary Dx); ESS (euthyroid sick syndrome); Chronic fatigue; Recurrent major depressive disorder, in partial remission ; Chronic post-traumatic stress disorder (PTSD) ; Hyperuricemia; Side effect of medicationStart: 04-20-2025 End: 57-30-6934tfpkhbhalcZMDSNE J HEMEYERNot AvailableStart: 01-13-2025 End: 92-00-1524Ppzzai outpatient visit 25 minutesAashish Laguna MD Work Phone: [facility] CI FM 100Comment on above:Essential hypertension (Primary Dx); Hypertensive nephropathy ; Stage 3a chronic kidney disease ([facility]); Type 2 diabetes mellitus with stage 3a chronic kidney disease, without long-term current use of insulin ([facility]); Hyperlipidemia, mixed ; Microalbuminuric diabetic nephropathy ([facility])Start: 01-13-2025 End: 91-63-6363bakosflbxwXZYYCW J HEMEYERNot AvailableStart: 01-13-2025 End: 35-13-4348Nbwjhw Tr Laguna MD Work Phone: [facility] CI FM 100Start: 01-13-2025 End: 73-11-1820Znfdrc Tr Laguna MD Work Phone: [facility] CI FM 100Start: 12-27-2024 End: 79-58-3095Gprvpj Tr Laguan MD Work Phone: [facility] CI FM 100Start: 12-27-2024 End: 95-96-1784Klmzio flowsMina Laguna MD Work Phone: [facility] CI FM 100Start: 12-27-2024 End: 83-57-6401kskqgfgvsxGREGNE J HEMEYERNot AvailableStart: 12-27-2024 End: 10-36-5328Itagyziidica care manage srvc 14 day dischargeAashish Laguna MD Work Phone: [facility] CI FM 100Comment on above:Hyperuricemia (Primary Dx); Atrial fibrillation with rapid ventricular response (CMS/HCC); Interstitial pulmonary disease (CMS/HCC); Acute idiopathic gout of right ankle; Acute idiopathic gout involving toe of right foot; Chronic post-traumatic stress disorder (PTSD) (CMS/HCC); [facility] End: 44-02-7036cimheqkbnzHtsuwe J Hemeyer MD Work Phone: [facility] Work Phone: Start: 11-28-2024 End: 85-52-7082Ybzvjtmq ReferredAashish Laguna MD Work Phone: [facility]-LAB Path Spec [facility] HospStart: 11-25-2024 End: 62-92-9540Jvbghub encounter procedureAashish Laguna MD Work Phone: [facility] Work Phone: Start: 11-25-2024 End: 54-07-4350fpygprobixQxdruc J Hemeyer MD Work Phone: [facility] Work Phone: Start: 11-09-2024 End: 75-60-5556Ynmxys Tr Laguna MD Work Phone: noms CI FM 100Start: 11-09-2024 End: 20-47-4211Zlakuy Tr Laguna MD Work Phone: [facility] CI FM 100Start: 11-09-2024 End: 48-63-1795qaaaixrgxoLAIAHB J HEMEYERNot AvailableStart: 10-26-2024 End: 28-66-5809swpcevknarGTSKWI J HEMEYERNot AvailableStart: 10-26-2024 End: 53-52-8799Ccsaep flowsMina Laguna MD Work Phone: [facility] CI FM 100Start: 10-26-2024 End: 75-41-8155Ovkqwi flowsMina Laguna MD Work Phone: [facility] CI FM 100Start: 10-26-2024 End: 72-95-9647Zxomjn outpatient visit 25 minutesAashish Laguna MD Work Phone: [facility] CI FM 100Comment on above:Acquired hypothyroidism (CMS/HCC) (Primary Dx); Chronic fatigue; ESS (euthyroid sick syndrome); Morbid obesity (CMS/HCC); BMI 40.0-44.9, adult (CMS/HCC)Start: 08-23-2024 End: 29-65-2623Peqmcd outpatient visit 25 minutesAngel Ramsey DO Work Phone: noms SWS OBComment on above:Encounter for gynecological examination without abnormal finding (Primary Dx); Breast cancer screening by mammogram; Omphalitis; Chronic dermatitis; Chronic vulvitisStart: 08-23-2024 End: 36-82-5566Ptilhdt encounter statusAngel Ramsey DO Work Phone: noms HealthcareStart: 08-23-2024 End: 77-06-6172cmhzufljunIHSFULL D BRUNERNot AvailableStart: 07-21-2024 End: 67-68-3086Rtlajm outpatient visit 25 minutesAashish Laguna MD Work Phone: [facility] CI FM 100Comment on above:Essential hypertension; Stage 3b chronic kidney disease (HCC) (CMS/HCC); Type 2 diabetes mellitus with stage 3b chronic kidney disease, without long-term current use of insulin (HCC) (CMS/HCC); Microalbuminuric diabetic nephropathy (CMS/HCC); Hyperlipidemia, mixed (CMS/HCC); Coronary artery disease involving [place] coronary artery of [place] heart without angina pectoris (CMS/HCC); Pulmonary hypertension (CMS/HCC); Morbid obesity (CMS/HCC); BMI 40.0-44.9, adult (CMS/HCC)Start: 07-21-2024 End: 00-29-9211gukjrbqvvbTNEBTLPaola Go AvailableStart: 07-21-2024 End: 46-41-4690Dqlwmx Tr Laugna MD Work Phone: [facility] CI FM 100Start: 07-21-2024 End: 89-11-3406Orzhia Tr Laguna MD Work Phone: [facility] FM 100Start: 05-12-2024 End: 84-61-6521Qhxnhi outpatient visit 25 minutesAashish Laguna MD Work Phone: [facility] CI FM 100Comment on above:Recurrent major depressive disorder, in partial remission (HCC) (CMS/HCC); Chronic post-traumatic stress disorder (PTSD) ([facility]/HCC); Mild cognitive impairment with memory loss; Morbid obesity (CMS/HCC); BMI 40.0-44.9, adult ([facility]/HCC); Hyperuricemia; Acute idiopathic gout involving toe, unspecified lateralityStart: 05-12-2024 End: 98-74-6575Etlvre Tr Laguna MD Work Phone: [facility] CI FM 100Start: 05-12-2024 End: 21-58-8557Yaauwp Tr Laguna MD Work Phone: [facility] CI FM 100Start: 05-04-2024 End: 62-27-2270Stqhni outpatient visit 40 minutesAashish Laguna MD Work Phone: [facility] CI FM 100Comment on above:Acquired hypothyroidism (CMS/HCC) (Primary Dx); ESS (euthyroid sick syndrome); Chronic fatigue; Morbid obesity (CMS/HCC); BMI 40.0-44.9, adult (CMS/HCC); Dyspnea on exertion; Pulmonary hypertension (CMS/HCC); Paroxysmal atrial fibrillation (CMS/HCC); Stage 3b chronic kidney disease (HCC) (CMS/HCC); Iron deficiency anemia, unspecified iron deficiency anemia type; Chronic venous insufficiency of lower extremityStart: 05-04-2024 End: 91-82-2561Lxniaf flowsMina Laguna MD Work Phone: [facility] CI FM 100Start: 05-04-2024 End: 38-79-1721Toqavm flowsMina Laguna MD Work Phone: [facility] CI FM 100Start: 04-28-2024 End: 44-57-0812Mfmgselpb Vincenzo Laguna MD Work Phone: [facility] CI FM 100Start: 03-15-2024 End: 66-71-4524Xrnhthvlc Result EncounterGeneric External Data ProviderNOMS External Department UnsolicitedStart: 03-15-2024 End: 68-95-0384Vbjgausdi Result EncounterGeneric External Data ProviderNOMS External Department UnsolicitedStart: 83-15-8330Svlit abstractingEnahum Laguna MD Work Phone: [facility] BNS FMStart: 10-15-2023 End: 58-00-3995Cufzzm outpatient visit 25 minutesEdramu Laguna MD Work Phone: noms BNS FMComment on above:Mild cognitive impairment with memory loss (Primary Dx); ESS (euthyroid sick syndrome); Acquired hypothyroidism (CMS/HCC); Chronic fatigue syndrome; Recurrent major depressive disorder, in partial remission (HCC) (CMS/HCC); Chronic post-traumatic stress disorder (PTSD) (CMS/HCC)Start: 10-02-2023 End: 99-99-7490rchzoiwukyQF Aashish Laguna Work Phone: [facility] Work Phone: Start: 10-02-2023 End: 07-29-6336Duqcrfw encounter procedureMD Aashish Laguna Work Phone: [facility] Work Phone: Start: 08-21-2023 End: 37-17-5460Byugjhznc Result EncounterGeneric External Data ProviderNOMS External Department UnsolicitedStart: 08-21-2023 End: 20-52-7763Sjvjbdmfk Result EncounterGeneric External Data ProviderNOMS External Department UnsolicitedStart: 80-74-3640irniygvmxyLY EDWARD HEMEYER . Facility:P1Humqn: 11-29-2022 End: 84-03-2548ybuhsacpedBV Edward J Hemeyer Work Phone: [facility] Work Phone: Start: 11-29-2022 End: 64-30-6533Ukbbgqb encounter procedureMD Edward Hemeyer Work Phone: [facility] Work Phone: Start: 11-25-2022 End: 24-91-7071mlseseomouXP Edward J Hemeyer Work Phone: [facility] Work Phone: Start: 11-25-2022 End: 15-92-3569Nsnnwcs encounter procedureMD Edward Hemeyer Work Phone: [facility] Work Phone: Start: 11-04-2022 End: 35-88-4530obzcaanofoJO EDWARD HEMEYER .Facility:H4Eeutn: 10-22-2022 ambulatoryDR EDWARD HEMEYER .Facility:I9Qdjzt: 10-18-2022 End: 30-66-0686abbhdyscpeCS EDWARD HEMEYER .Facility:J9Lcbor: 10-15-2022 End: 17-28-3182wrftivwgsfCU EDWARD HEMEYER .Facility:G4Slhnp: 10-14-2022 End: 04-01-0785wigswfowzeLV Edward J Hemeyer Work Phone: [facility] Work Phone: Start: 10-14-2022 End: 02-06-8249Ywdtadi encounter procedureMD Edward Hemeyer Work Phone: [facility] Work Phone: Start: 09-17-2022 End: 54-79-3306sajjydepwsBGQD [facility]Start[facility] 09-17-2022 End: 53-23-0182Wnfddgxszq hospital [facility] Stress RmWHZ Stress LabComment on above:ArrivedAbnormal EKG; Chest pain, unspecified typeStart: 09-05-2022 End: 94-18-3470abklzqwcmdIY NORA PARENTEFacility:K4Dhfhg: 08-29-2022 End: 63-86-9099nxadonbqgmQRPY VIGESAAFacility:F9Cmcrw: 36-98-2328yzqhqbhbycNX AASHISH LAGUNA .Facility:K3Fkvsn: 06-17-2022 End: 56-41-7653hodxehobgqDJ EDWARD HEMEYER .Facility:V9Tyazf: 05-16-2022 End: 89-71-7293oqxqmkgzdjUT EDWARD HEMEYER .Facility:R6Fdeci: 03-18-2022 End: 96-30-5392yxmrwzcvrqPCGR [facility] HospitalStart: 03-18-2022 End: 56-10-2356Igytoymlue hospital visit by Sharmila Laguna MD Work Phone: mWHZ RESPIRATORY THERAPYComment on above:Atrial fibrillation, new onset (HCC)Start: 02-27-2022 End: 59-78-4373Cdwkezs encounter procedureJEPATRICK LEW [facility] start: 02-12-2022 End: 89-99-2311ohkyubhlhmVWRG S [facility] HospitalStart: 02-12-2022 End: 39-72-8875Zdbyaakyup hospital visit by physicianShruti Stress RmMWHZ Stress LabComment on above:Atrial fibrillation, new onset (HCC)Start: 12-31-2021 End: 07-36-7781absqiexpwbSJ EDWARD HEMEYER .Facility:O6Yfnbp: 07-12-2021 End: 92-52-7970Rrlzbzghhp hospital visit by Sharmila Laguna MD Work Phone: MWHZ RESPIRATORY THERAPYComment on above:Atrial fibrillation, new onset (HCC)Atrial fibrillation, new onset (HCC); Essential hypertension; Anemia, unspecified typeStart: 06-11-2021 End: 42-63-5651Jlefvcfsgz hospital visit by physicianShruti Stress RmMYumiko Stress LabComment on above:ArrivedStart: 10-14-2020 End: 01-65-9333Rtmeyo Oksana Hernandez Work Phone: [facility] Start: 05-19-2019 End: 82-25-9949Xnwlaua encounter procedureRegency Hospital Cleveland Westtart: 05-19-2019 End: 66-92-3093Xgivipqjbl [facility] Work Phone: [facility] Procedural Care UnitStart: 05-17-2019 End: 39-53-7543Cqbeceltou hospital visit by Sharmila Hill RESPIRATORY THERAPYComment on above:SOB (shortness of breath); Hypertension, unspecified type; Diabetes mellitus without complication (HCC)SOB (shortness of breath); Hypertension, unspecified type; Diabetes mellitus without complication (HCC); Renal insufficiency Procedures DateProcedureProcedure DetailPerforming ClinicianStart: 50-85-9071Xnvvqjlwi mammography of bilateral breastsEdramu Laguna MD Work Phone: Start: 29-48-8988CH CHEST 2VGeneric External Data ProviderStart: 10-02-2023 End: 71-73-1091Vfxhqyzrh mammography of bilateral breastsMD Aashish Laguna Work Phone: Start: 08-27-2096ITS 12-LEADGeneric External Data ProviderStart: 44-15-6985Ardtv X-ray abdomenMD Aashish Laguna Work Phone: Start: 40-81-2365Jvnb energy X-ray absorptiometryMD Aashish Laguna Work Phone: Start: 77-55-4977Djzirwhbn mammography of bilateral breastsMD Aashish Laguna Work Phone: Start: 52-64-8281IYDGIT TEST, LEXISCANGreg Tung Galindo MD Work Phone: Start: 51-83-2839Yqmvlfkaij spect multiple studiesGreg Tung Galindo MD Work Phone: Start: 63-19-1127Zoc routine ecg w/least 12 lds w/i&r Pacheco Tung Galindo MD Work Phone: Start: 02-12-2022 End: 12-94-5025Wuf routine ecg w/least 12 lds w/i&rGreg Tung Galindo MD Work Phone: Start: 48-28-0265Dutncruqyywkf metabolic panelGreg Tung Galindo MD Work Phone: Start: 20-43-7146Syj routine ecg w/least 12 lds w/i&r Pacheco Tung Galindo MD Work Phone: Start: 06-11-2021 End: 49-59-6664Tog routine ecg w/least 12 lds w/i&rGreg Tung Galindo MD Work Phone: Start: 93-04-8926ElxxaodmaiQAESHYIW LOUANN Start: 69-13-6285Akgapnp catheterizationGregory Victor M Galindo Work Phone: Start: 40-84-1799Sjghwpm [Mass/volume] in BloodGregory Victor M Galindo Work Phone: Start: 18-88-9473Nixyf count complete auto&auto difrntl wbcGreg Tung [employer] Work Phone: Start: 98-78-7444Jzngfzawljvzu metabolic panelGreg S [employer] Work Phone: Start: 45-13-4153Kwokf panelGreg [employer] Work Phone: Start: 92-83-9898TLRYOZC FASTING?Pacheco Galindo Work Phone: Start: 69-90-4128DwguohqbjpwAxdjtn Hemeyer MD Work Phone: Start: 83-39-0680CkqvghzeelIPSBJOXF PERRY Bilateral cataracts (disorder)Radha Harley CholecystectomyFRED LOUANN Foot structure (body structure)FRED LEW Placement of stent in cardiac conduitFRED LEW Comment on above:11/2016Reduction mammoplastyFRED LEW Plan of Treatment DateCare ActivityDetailAuthorStart: 26-04-8367Ceisykcq screeningDiabetes: Retinopathy ScreeningNOCA HealthcareStart: 17-59-2859Ydadzrpxg vaccination Influenza Vaccine (#1)[facility] HealthcareComment on above:Postponed from 05/09/2025 (Patient Refused)Start: 29-54-8821Bxxoi screening for proteinDiabetes: Urine Protein ScreeningNOCA HealthcareStart: 12-22-2025 End: 75-84-8225Chvbawz encounter jpuxcqrbz74/16/2026 2:00 PM EDT Office Visit [facility] [place] [address] [place] [address] Aashish Laguna MD [address] [facility] 100 [place] [address] (Fax)[facility] MedicineStart: 43-98-4943Qypdoaeyuf A1c measurementDiabetes: Hemoglobin E2XXZRT Healthcare Start: 10-20-2025 End: 04-05-0973Sglyunj encounter bopvigojf53/12/2026 2:00 PM EST Office Visit [facility] [place] [address] [place] [address] Aashish Laguna MD [address] [place] [address] [facility] MedicineStart: 61-65-1744Dcjdszkyf for malignant neoplasm of colonNOCA HealthcareStart: 08-24-2025 End: 75-95-8565Parlsqe encounter procedureNOMS SWS OBStart: 50-08-4182Pbmfhemyll A1c measurementDiabetes: Hemoglobin S8KLNCP HealthcareStart: 07-14-2025 End: 66-37-6963Mxqronb encounter procedureNOMS CI FM 100Start: 06-30-2025 End: 15-20-9346Klebgck encounter procedureNOMS CI FM 100Comment on above: Essential hypertension; Stage 3a chronic kidney disease ([facility]-HCC); Hyperlipidemia, mixed; Type 2 diabetes mellitus with stage 3a chronic kidney disease, without long-term current use of insulin (HCC); Microalbuminuric diabetic nephropathy (HCC); Morbid obesity ([facility]-HCC)Start: 50-60-0857Ydhmwwdj screeningDiabetes: Retinopathy ScreeningNOCA HealthcareStart: 65-73-8447ALPYM-19 Vaccine ( season) COVID-19 Vaccine ( season)[facility] HealthcareStart: 83-09-2280Fatglnvqf vaccinationInfluenza Vaccine (#1)[facility] HealthcareStart: 05-04-2025 End: 38-90-9437Kxtslqnpzvd [Units/volume] in Serum or PlasmaTSH Lab Routine Acquired hypothyroidism Expected: 05/04/2025, Expires: 04/20/2026[facility] Work Phone: Comment on above:Expected: 05/04/2025, Expires: 04/20/2026Start: 05-04-2025 End: 77-30-7439Cddnssykq (T4) free [Mass/volume] in Serum or PlasmaT4, free Lab Routine Acquired hypothyroidism Expected: 05/04/2025, Expires: 04/20/2026[facility] HealthcareComment on above:Expected: 05/04/2025, Expires: 04/20/2026Start: 05-04-2025 End: 08-88-7462Vxrbxcmispmazavb (T3) Free [Mass/volume] in Serum or PlasmaT3, free Lab Routine ESS (euthyroid sick syndrome) Acquired hypothyroidism Expected: 05/04/2025, Expires: 04/20/2026[facility] HealthcareComment on above:Expected: 05/04/2025, Expires: 04/20/2026Start: 04-20-2025 End: 59-18-1530Noyzyiv encounter procedureNOSOUTHEAST MISSOURI [facility]OSPITALS FMComment on above:ESS (euthyroid sick syndrome); Acquired hypothyroidism ; Chronic fatigue; Recurrent major depressive disorder, in partial remission ; Chronic post-traumatic stress disorder (PTSD)Start: 03-25-2025 End: 98-48-9959N1, reverseT3, reverse Lab Routine Chronic fatigue ESS (euthyroid sick syndrome) Expected: 03/25/2025, Expires: 10/26/2025[facility] HealthcareComment on above:Expected: 03/25/2025, Expires: 10/26/2025Start: 03-25-2025 End: 09-87-2865Gvcqelbndjf [Units/volume] in Serum or PlasmaTSH Lab Routine Acquired hypothyroidism (CMS/HCC) Chronic fatigue Expected: 03/25/2025, Expires: 10/26/2025[facility] HealthcareComment on above:Expected: 03/25/2025, Expires: 10/26/2025Start: 03-25-2025 End: 56-29-7622Zwmajkako (T4) free [Mass/volume] in Serum or PlasmaT4, free Lab Routine Acquired hypothyroidism (CMS/HCC) Chronic fatigue Expected: 03/25/2025, Expires: 10/26/2025[facility] HealthcareComment on above:Expected: 03/25/2025, Expires: 10/26/2025Start: 03-25-2025 End: 36-52-9473Qgcmlfopzmimpmzc (T3) [Mass/volume] in Serum or PlasmaT3 Lab Routine Chronic fatigue ESS (euthyroid sick syndrome) Expected: 03/25/2025, Expires: 10/26/2025[facility] Healthcare Work Phone: Comment on above:Expected: 03/25/2025, Expires: 10/26/2025Start: 03-25-2025 End: 43-66-2730Nkbhyybrrtjskidq (T3) Free [Mass/volume] in Serum or PlasmaT3, free Lab Routine Chronic fatigue ESS (euthyroid sick syndrome) Expected: 03/25/2025, Expires: 10/26/2025NOCA HealthcareComment on above:Expected: 03/25/2025, Expires: 10/26/2025Start: 76-21-5891Jwuba screening for protein Diabetes: Urine Protein ScreeningNOCA HealthcareStart: 01-13-2025 End: 64-55-1672Jbiwlan encounter procedureNOMS CI FM 100Comment on above: Essential hypertension; Hyperlipidemia, mixed ([facility])Start: 73-65-7595Zwfpmixcwksl Vaccine: 65+ Years (2 of 2 - PCV)Pneumococcal Vaccine: 65+ Years (2 of 2 - PCV)[facility] Comment on above:Postponed from 04/01/2019 (Patient Refused)Start: 11-28-2024 Bacteria identified in Urine by CultureUrine [facility] Hospitaltart: 93-93-4842Kmyzc [facility] Centertart: 11-09-2024 End: 49-47-3047Msgcpbb encounter procedureNOMS CI FM 100Comment on above: Encounter for Medicare annual wellness exam; Advance directive in chart; Encounter for screening for other disorder; Screening for alcohol problem; Morbid obesity ([facility]); BMI 40.0-44.9, adult ([facility]); Type 2 diabetes mellitus with stage 3a chronic kidney disease, without long-term current use of insulin (HCC) ([facility]); Stage 3b chronic kidney disease (HCC) ([facility]); Essential hypertension; Microalbuminuric diabetic nephropathy ([facility]); Hyperlipidemia, mixed ([facility]/HCC)Start: 11-04-2024 End: 98-76-8312D6, reverseT3, reverse Lab Routine Chronic fatigue Expected: 11/04/2024 (Approximate), Expires: 05/04/2025[facility] HealthcareComment on above: Expected: 11/04/2024 (Approximate), Expires: 05/04/2025Start: 11-04-2024 End: 98-52-9408Udlmtgilmuh [Units/volume] in Serum or PlasmaTSH Lab Routine Chronic fatigue Expected: 11/04/2024 (Approximate), Expires: 05/04/2025[facility] HealthcareComment on above:Expected: 11/04/2024 (Approximate), Expires: 05/04/2025Start: 11-04-2024 End: 58-57-8796Spojvwwxz (T4) free [Mass/volume] in Serum or PlasmaT4, free Lab Routine Chronic fatigue Expected: 11/04/2024 (Approximate), Expires: 05/04/2025 [facility] HealthcareComment on above:Expected: 11/04/2024 (Approximate), Expires: 05/04/2025Start: 11-04-2024 End: 80-16-3895Hfagjzopycfywjct (T3) [Mass/volume] in Serum or PlasmaT3 Lab Routine Chronic fatigue Expected: 11/04/2024 (Approximate), Expires: 05/04/2025 [facility] Healthcare Work Phone: Comment on above:Expected: 11/04/2024 (Approximate), Expires: 05/04/2025Start: 11-04-2024 End: 20-49-1483Shoavbjnrqblxsml (T3) Free [Mass/volume] in Serum or PlasmaT3, free Lab Routine Chronic fatigue Expected: 11/04/2024 (Approximate), Expires: 05/04/2025[facility] HealthcareComment on above:Expected: 11/04/2024 (Approximate), Expires: 05/04/2025Start: 10-26-2024 End: 87-56-3996Unfswkc encounter procedureNOMS CI FM 100Start: 10-03-2024 End: 90-46-9893TIZ Breast - bilateral screeningBilateral screening mammogram with tomosynthesis Imaging Routine Breast cancer screening by mammogram Expected: 10/03/2024, Expires: 10/24/2025[facility] Healthcare Work Phone: comment on above:Expected: 10/03/2024, Expires: 10/24/2025Start: 99-78-6305Igmebgqos for malignant neoplasm of breastMammogram [facility] HealthcareStart: 08-23-2024 End: 67-43-3547Enemxsz encounter qyisidmlu56/16/2024 1:45 PM EST Office Visit [facility] [address] [place] [id number] Angel Ramsey, DO [address] [place] [address] [facility] SWS OBStart: 98-10-6078Qsjlwwctyh A1c measurement Diabetes: Hemoglobin K9URIQQ HealthcareStart: 07-21-2024 End: 85-87-3732Ihxxmef encounter dmpfggigq50/13/2024 2:30 PM EST Office Visit [facility] [address] [facility] [address] [place] [address] Aashish Laguna MD [address] [place] [address] (Fax)[facility] CI FM 100Start: 05-13-2024 End: 64-76-2069Fshsfyc encounter hppamfkfq72/05/2024 2:30 PM EDT Office Visit [facility] [address] [facility] [address] [place] [address] Aashish Laguna MD [address] [place] [address] (Fax)[facility] CI FM 100Start: 05-12-2024 End: 41-18-6089Izlitgd encounter procedureNOMS CI FM 100Comment on above: Recurrent major depressive disorder, in partial remission (HCC) ([facility]); Chronic post-traumatic stress disorder (PTSD) ([facility]); Mild cognitive impairment with memory loss; Morbid obesity ([facility]); BMI 40.0-44.9, adult ([facility])Start: 45-58-8564Bcftuvvjo vaccinationInfluenza Vaccine (#1)[facility] HealthcareStart: 63-56-6077Evwcpxhibc A1c measurementDiabetes: Hemoglobin I5QWRBC HealthcareStart: 05-04-2024 End: 44-89-8081Gvkpukk encounter procedureNOMS CI FM 100Comment on above:ESS (euthyroid sick syndrome); Chronic fatigue syndrome; Morbid obesity (CMS/HCC); BMI 40.0-44.9, adult (CMS/HCC)Start: 02-05-2024 End: 19-89-3223Qknphxu encounter ilkelvdon45/30/2024 2:00 PM EDT Office Visit [facility] [address] [facility] [address] Aashish Laguna MD [address] [place] [address] (Fax)[facility] FMStart: 11-11-2023 End: 51-41-5117Pgbtisi encounter bdfjydscs42/05/2024 2:30 PM EST Office Visit [facility] [address] [facility] [place] [address] Aashish Laguna MD [address] [place] [address] (Fax)[facility] FMStart: 10-15-2023 End: 70-11-4379Yeecgdi encounter fgfahyqqx64/07/2024 2:00 PM EST Office Visit [facility] [address] [facility] [place] [address] Aashish Laguna MD [address] [place] [address] (Fax)[facility] FMStart: 72-90-4002Sqgitjaebz A1c measurement Diabetes: Hemoglobin I8STSLY HealthcareStart: 00-66-3291Tjegl panelLipidsTWIN COUNTY REGIONAL HEALTHCAREStart: 25-73-9946Fcrov screening for proteinDiabetes: Urine Protein ScreeningNOCA HealthcareStart: 11-09-2023Medicare Annual Wellness (AWV) Medicare Annual Wellness (AWV)NOM HealthcareStart: 03-17-2023 End: 68-28-4230Wmwuckn encounter khmzdsdaa19/10/2023 Office Visit Cardiology Pacheco Galindo MD [address] [place] [address] [facility] Cardiology SpecialistStart: 61-83-9684Oryvh screening for proteinDiabetic microalbuminuria testBON [facility]OSPITALStart: 09-17-2022 End: 75-05-5917Zuvpxla encounter dpzeqgvvw53/10/2023 Office Visit Cardiology Pacheco Galindo MD [address] [place] [address] [facility] Cardiology SpecialistStart: 66-79-6956IPA test (Diabetes, CKD 3-4, OR last GFR 15-59)GFR test (Diabetes, CKD 3-4, OR last GFR 15-59)[facility]ALTHCAREStsaint pauls: 33-38-9997Shxovqovr vaccinationFlu vaccine (#1)[facility]ALTHCAREStsaint pauls: 02-06-6396Yqhamrneh vaccinationFlu vaccine (#1)[facility]OS[facility]ITALStart: 03-18-2022 End: 97-01-7443Mrttyjm encounter /11/2022 Office Visit Cardiology Pacheco Galindo MD [address] [place] [address] [facility] Cardiology SpecialistStart: 01-08-2022 End: 53-44-3433Ibtizrw encounter dhqeytbip22/03/2022 Office Visit Cardiology Pacheco Galindo MD [address] [place] [address] [phone] [facility] Cardiology SpecialistStart: 96-28-5424Gxyym screening for proteinBON [facility]OSPITALStsaint pauls: 09-75-4371Fibnuxkvr for malignant neoplasm of colonColonoscopyNOMS HealthcareStart: 07-12-2021 End: 30-33-8166Ssvhowk encounter hptsplpga95/04/2021 Office Visit Cardiology Pacheco Galindo MD [address] [place] [address] [facility] Cardiology SpecialistStart: 03-24-9100Fevgdhgkx vaccinationFlu vaccine (#1)[facility] [employer] Work Phone: start: 98-19-6290Voemh panelB[facility] Start: 04-11-2020 End: 57-32-8873Mlbpcc Visit04/11/2020 Office Visit Cardiology Pacheco Galindo MD [address] [place], [place] [address] [facility] Cardiology SpecialistStart: 43-78-6845Zwyzaazek for malignant neoplasm of colon [facility]ALTHCAREStart: 05-19-2019 End: 21-80-9490Locyz Only05/19/2019 Nurse Only CardiologyA[facility] Cardiology SpecialistStart: 87-82-9732Qzynsmcav vaccinationFlu vaccine (#1)[facility]: 43-88-8931Jwjoirixtlyu 65+ years Vaccine (2 - PCV)Pneumococcal 65+ years Vaccine (2 - PCV)[facility]ALTHCAREStart: 12-33-2906Wsjsctcxgcca 65+ years Vaccine (2 of 2 - PCV13)Pneumococcal 65+ years Vaccine (2 of 2 - PCV13) [facility]: 95-62-8936Dzufkxvadeht Vaccine: 65+ Years (2 - PCV) Pneumococcal Vaccine: 65+ Years (2 - PCV)[facility]Start: 65-61-8958Qvphkn Wellness Visit (AWV)Annual Wellness Visit (AWV)[facility]: 65-75-3143Ehcececcl for malignant neoplasm of colonTWIN COUNTY REGIONAL [facility]ALTHCARE Start: 91-71-0588Nppsu screenLipid screenACMC Healthcare System: 2014 DEXA (modify frequency per FRAX score)DEXA (modify frequency per FRAX score) [facility]: 26-17-2066Edtuiqrx Vaccine (2 of 3)Shingles Vaccine (2 of 3)[facility]: 99-28-8451Flljox Wellness Visit (AWV)Annual Wellness Visit (AWV)[facility]: 86-16-3754Zfefqwbck B Vaccines (1 of 3 - Risk 3-dose series)Hepatitis B Vaccines (1 of 3 - Risk 3-dose series) [facility]Start: 64-81-1669JLaT/Tdap/Td Vaccines (2 - Tdap)DTaP/Tdap/Td Vaccines (2 - Tdap)[facility] HospitalStart: 62-49-0264ZKtN/Tdap/Td vaccine (1 - Tdap)DTaP/Tdap/Td vaccine (1 - Tdap)[facility]: 2004 Screening for osteoporosisDEXA (modify frequency per FRAX score)[facility]: 46-42-3776Gonsg cancer screen colonoscopyColon cancer screen colonoscopyACMC Healthcare System: 01-14-5228Asaaibipm for malignant neoplasm of colonFort [facility]voir Community [facility]: 72-74-4712Abzqih cancer screenBreast cancer screenACMC Healthcare System: 02-32-4879Srgngwfux for malignant neoplasm of breastBreast cancer screenFort Belvoir Community Hospital: 1968 Hepatitis A Vaccines (1 of 2 - Risk 2-dose series)Hepatitis A Vaccines (1 of 2 - Risk 2-dose series)[facility] HospitalStart: 35-70-3930Yrdpogfj microalbuminuria testDiabetic microalbuminuria testACMC Healthcare System: 85-07-9240Knstxqgc retinal examDiabetic retinal examBON [facility]: 1967 Glaucoma screeningDiabetic retinal examBON [facility]: 1967 Hepatitis C screeningHepatitis C screenBON [facility]: 1961 Depression ScreenDepression ScreenFort Belvoir Community Hospital: 1959 [object Object]Diabetic foot examKnox Community Hospitalart: 66-67-0184U2E test (Diabetic or Prediabetic)A1C test (Diabetic or Prediabetic)[place] Start: 95-96-3076Dzyypvac foot examinationDiabetic foot examBON [facility]: 18-92-9195Uqufmzne retinal examDiabetic retinal examNew [place], [place]Start: 15-80-0420Ojheuzubrd A1c umpabzwwuhgE9X test (Diabetic or Prediabetic)[facility] [place]Louis[place]: 77-14-1626Pirxan Wellness Visit (AWV) Annual Wellness Visit (AWV)[facility] HOSPITALIntercloud SystemsLouisville: 17-30-0841Olipjmbse C screenHepatitis C [employer] [place], [place]Start: 91-47-0689Jymqvmxlp C screeningHepatitis C [employer] Work Phone: start: 77-41-0896Fnyeofixd for malignant neoplasm of colonBEAVER VALLEY [facility]ITAL HealthcareCardiac catheterizationCardiac Catheterization Cardiac Cath Routine 05/19/2019 8:40 AM EDTOhioHealth End: 76-03-9464Zhrvacroqhksx DefibrillationCardioversion Defibrillation Cardiac Cath Routine Atrial fibrillation, new onset (HCC) 1 Occurrences starting 02/12/2022 until 02/12/2022ON [employer] Work Phone: comment on above:1 Occurrences starting 02/12/2022 until 02/12/2022EKG 12 [facility] FoundationO[facility], KYEKG 12 LeadBON [employer] Work Phone: eKG 12 LeadEKG 12 Lead ECG Routine Atrial fibrillation, new onset (HCC) 03/18/2022 9:40 AM EDTBON [employer] Work Phone: Immunizations Immunization DateImmunizationNotesCare UibnmrtjIqhhkvlf34-80-5446MEBYTVX - Respiratory syncytial virus (RSV), vaccine, bivalent, protein subunit RSV prefusion F, diluent reconstituted, 0.5 mL, PFAashish Laguna MD Work Phone: [facility] HospitalKrxowolbcl53-27-7572Gviqwcicvhpj Conjugate PCV 20 Aashish Laguna MD Work Phone: [facility] HospitalFsqwnwgdez36-26-5119AMBG-YRK-7 (COVID-19) vaccine, mRNA, spike protein, LNP, PF, 50 mcg/0.5 mLAashish Laguna MD Work Phone: [facility] HospitalYczdqdobvd99-75-9006Rkknjuvr trivalent influenza vaccine, adjuvanted, preservative freeAashish Laguna MD Work Phone: [phone] [place], [place] [address]Xuckfpewqc93-57-7088ohhyhsbho virus vaccine, unspecified formulationAashish Laguna MD Work Phone: [phone] [place], [place] [address]Pncclcacal25-05-9090HQRY-FIY-5 (COVID-19) vaccine, mRNA, spike protein, LNP, PF, 50 mcg/0.5 mLAashish Laguna MD Work Phone: [phone] [place], [place] [address]Jobbfyzjai14-05-6540Nbtemvowy, Seasonal, Quadrivalent, AdjuvantedEdramu Laguna MD Work Phone: [phone] [place], [place] [address]Tncrdfjmze04-85-9398jlhkivuig virus vaccine, unspecified formulationAashish Laguna MD Work Phone: [phone] [place] [place], [place] [address]Dltsnnyxla84-98-6112icqbckmgh, injectable, quadrivalent, preservative freeAashish Laguna MD Work Phone: [phone] [place] [place], [place] [address]Lewtkbyjhm28-18-3252bpyhcjvdx, high dose seasonal, preservative-freeAashish Laguna MD Work Phone: [phone] [place], [place] [address]Gcnbbghnok76-45-1234Auntnnls, trivalent, recombinant, injectable influenza vaccine, preservative freeAashish Laguna MD Work Phone: [phone] [place], [place] [address]Ooigcuplfc19-96-9549EOKX-YtN-4 (COVID-19) mRNA- 1273 vaccineJEKANUSAN [facility]ICENTE H[facility] comment on above:Result Comment: 2 nhdv54-74-6286 SARS-CoV-2 (COVID-19) mRNA-1273 vaccineJENNIFER LOUANN [facility] comment on above:Result Comment: 1st mxmb42-33-1528 Seasonal trivalent influenza vaccine, adjuvanted, preservative freeAashish Laguna MD Work Phone: [phone] [place], [place] [address]Hljjvwbank62-79-6770ybgqho vaccine recombinant Aashish Laguna MD Work Phone: [phone] [place], [place] [address]Prlleoxsus42-41-1731orquqr vaccine recombinant Aashish Laguna MD Work Phone: [phone] [place], [place] [address]Bpwoxtwuvb13-47-5367ivhperhxt, high dose seasonal, preservative-freeAashish Laguna MD Work Phone: [phone] [place] [place], [place] [address]Frxhoieutc79-25-1956ppehnlnif, high dose seasonal, preservative-freeEdramu Laguna MD Work Phone: [phone] [place], [place] [address]Qhmbenziyl01-69-8987ocaqkowkc, injectable, quadrivalent, preservative freeAashish Laguna MD Work Phone: [phone] [place], [place] [address]Djdktimbbe82-23-0547ybgsozyproyf polysaccharide vaccine, 23 valKasandra Laguna MD Work Phone: [phone] [place], [place] [address]Kryeopzcci02-61-9624bauabpydw, injectable, quadrivalent, preservative freeAashish Laguna MD Work Phone: [phone] [place], [place] [address]Iqxcqrxzio49-91-4573wlpzxuzpk, injectable, quadrivalent, preservative freeAashish Laguna MD Work Phone: [phone] [place], [place] [address]Zcwsngbloz35-08-6834Qdizdmmz trivalent influenza vaccine, adjuvanted, preservative freeAashish Laguna MD Work Phone: [phone] [place], [place] [address]Orvorterjl56-14-1506zokzpkqum, seasonal, injectable, preservative freeAashish Laguna MD Work Phone: [phone] [place], [place] [address]Htdnnjvxru32-35-0990msmsphlxe, injectable, quadrivalent, preservative freeAashish Laguna MD Work Phone: [phone] [place] [place], [place] [address]Eiruyqbdxw36-38-0381fpxrgd vaccine, liveEdramu Laguna MD Work Phone: [phone] [place], [place] [address]Vsoiooydaw87-73-7887gukaaqzqeqxt polysaccharide vaccine, 23 valKasandra Laguna MD Work Phone: [phone] [place] [place], [place] [address]Opplcrnavr68-93-0212brdlsbj and diphtheria toxoids, adsorbed, preservative free, for adult use (5 Lf of tetanus toxoid and 2 Lf of diphtheria toxoid)Aashish Laguna MD Work Phone: [facility] Payers DatePayer CategoryPayerPolicy [id number] AAR [id number] 2022- Present [address] [place] [address] [id number] Health Insurance [id number] [facility] [id number] 2016-[id number] 1.2.840.029588.1.13.385.2.7.3.133782.43335-32-1985Lahbsmgpexnnyzfkqf 1.2.840.417299.1.13.385.2.7.3.311708.315 2014MedicareMEDICARE MEDICARE PART A & B [id number] 2014-Present [id number] 1.2.840.402078.1.13.385.2.7.3.100126.315 2014MedicareMEDICARE MEDICARE PART A & B xxxxxxxxxx 2014-Present [place] [id number]5 2014Medicare 1.2.840.391794.1.13.693.2.7.3.721262.315 [id number] 1960 [id number] [id number] 2.16.840.1.742214.3.57[id number] 2.16.840.1.149309.3.579.[id number] 2.16.840.1.240858.3.579.2.30206-68-2222Ytdakuy45920487 2.16.840.1.668361.3.579.2.87323-83-8028Ouwmupd49186592 2.16.840.1.010526.3.579.2.92822-82-6260Cuzzbkp26261107 2.16.840.1.555463.3.579.2.59[id number] 2.16840.1.307599.3.579.2.37093-53-9206Gdxfubz53870955 2.16840.1.152760.3.579.2.76770-05-5340Gjickac5523208 2.16840.1.551472.3.579.2.39855-53-6070Exqpeup5593482 2.16.840.1.033114.3.579.2.10153-12-2152Lyazisa4059787 2.16840.1.450855.3.579.2.89942-98-7793Ipycltq0449660 2.16.840.1.691370.3.579.2.15007-22-5499Cjvrnmh6142786 2.16.840.1.744976.3.579.2.05998-31-3020Khzquog8548814 2.16.840.1.729449.3.579.2.39893-03-1166Qcrzyzo8221352 2.16.840.1.624219.3.579.2.63596-16-5069Zgegxmn8363235 2.16.840.1.370340.3.579.2.67087-68-0875Npuwaaa3319382 2.16.840.1.404788.3.579.2.89226-69-4175Lfninec4006988 2.16.840.1.922769.3.579.2.62076-70-0391Ekzjiud8286993 2.16840.1.997654.3.579.2.22941-76-6383Hvwhhbb32642287 2.16840.1.436523.3.579.2.29975-13-8943Jkbaytc31854950 2.16840.1.151146.3.579.2.59390-26-7498Elvlxmv20402952 2.16840.1.388196.3.579.2.724994-49-2609Soxpdwu15684453 2.16840.1.721592.3.579.2.056846-63-4017Ealavfr65703687 2.16840.1.474705.3.579.2.221483-50-5561Bvswmup7655114 2.16840.1.360034.3.579.2.534821-97-5202Ubmjtwq1312367 2.840.1.027470.3.579.2.774194-82-2458Ffwjtfk6468230 2.16840.1.279139.3.579.2.[id number] 2.16840.1.353562.3.579.2.0[id number] 2.16840.1.299535.3.579.2.[id number] 2.16840.1.888099.3.579.[id number] 2.16.840.1.202350.3.579.2.727MedicareVytalize Qwosbq6O20PS5LC92 82s0zx45-0894-6b32-r2qz-[id number] 2.16.840.1.466008.3.579.2.013Blsbrbr85429955 2.16.840.1.881121.3.579.2.531 Social History DateTypeDetailFacilityStart: 05-21-2019 End: 84-76-9702Gptfxhp smoking status NHISNever smokerKnox Community Hospitalart: 05-21-2019 End: 70-14-2650Hltckpa use and exposureNever usedOhioHealthStart: 05-21-2019 End: 36-18-5475Qoeurry intakeEx-drinker (finding)[facility]HealthStart: 17-56-9805Fcv Assigned At BirthNot on [facility]: 05-17-2019 End: 35-31-6136Zkbbfqc intakeThe [facility]: 05-01-2021 End: 50-46-5106Yflnulk intakeCurrent non-drinker of alcohol (finding)[facility] [employer] Work Phone: start: 64-19-1259Snyazvm smoking statusNeverExecutive Urology of St[facility] start: 91-09-4600Ovv Assigned At BirthAultman Orrville Hospitaltart: 08-20-2023 End: 27-21-4907Kazjqqs of Social functionNOMS HealthcareHow often to you have a drink containing alcohol?NeverNOMS HealthcareStart: 15-51-5644Cfzywjkmf57JOXW HealthcareStart: 86-85-5789Wlmhwre CommentCaffeine intake: 1 cup day of soda, occasional diet cokeNOMS HealthcareTobacco smoking status NHISUnknown if ever smokedDayton Children'S Hospital Work Phone: Start: 12-20-2009 End: 91-95-1005CqwJdiovn (finding)[facility] Hospitalexual OrientationExecutive [facility]rology of [facility] [employer] Medical Equipment Procedure CodeEquipment CodeEquipment Original TextEquipment IdentifierDates Closure Starclose Se - [id number], [id number] FDAStart: 05-19-2019 Functional Status CauuAxpygruegvSiuertMyfpiggx82-45-8035Yunshff Health Questionnaire 2 item (PHQ- 2) [Reported][facility] HospitalRzbffjabqe70-72-5938Itbllqs Health Questionnaire 2 item (PHQ- 2) [Reported][facility] HospitalIsteylqcch68-10-7018Hcpzcns Health Questionnaire 2 item (PHQ- 2) [Reported][facility] HospitalWfgsmuefte95-43-2367Hjnpqoy Health Questionnaire 2 item (PHQ- 2) [Reported][facility] HospitalHvzdpejqdy25-08-1456Qdymq score [AUDIT-C]0 08/23/2024 1:42 PM EST Leroy, Renate, GET [id number] Health Questionnaire 2 item (PHQ-2) [Reported][facility] HospitalHrlusnjfqy00-95-2325Inshhiy Health Questionnaire 2 item (PHQ-2) [Reported][facility] HospitalCdjxolamxh41-99-7454Askhkpuxwm StatusN/AExecutive [facility] Clinical Notes 02-27-2022 to 07-07-2025 Note Date & [id number] NoteProgress Note-Physician Patient: PATRICIA BLAKE Age: 75 years Sex: Female : 1950 Associated Diagnoses: None Author: TIN GASCA, Niru Sanchez Subjective ROS & PFSH Reviewed I have reviewed the ROS and PFSH from the procedural information filed today with no changes (or with the following changes).. Health Status Allergies: Allergic Reactions (Selected) Severity Not Documented Lisinopril- Unknown and swelling. Penicillins- Unknown. Sulfa drugs- Unknown., Allergies (3) Active Severity Reaction penicillins Unknown sulfa drugs Unknown lisinopril Unknown, Swelling Current medications: (Selected) Prescriptions Prescribed Cipro 500 mg Tab: See Instructions, Take 1 tab day prior to procedure and 1 tab day of procdure - afterwards, # 2 tab(s), Refills(s) 0, Pharmacy: [facility], 149, cm, 06/21/25 13:36:00 EDT,Height/Length Dosing, 92.7, kg, 06/21/25 13:36:00 EDT, Weight Dosing Documented Medications Documented DilTIAZem (Eqv-Cardizem CD) 120 mg/24 hours oral capsule, extended release: Refills(s) 0 Eliquis 5 mg oral tablet: 5 mg = 1 tab(s), Oral, BID, Refills(s) 0 Lasix 20 mg Tab: mg tab(s), Oral, Daily, Refills(s) 0 allopurinol 300 mg Tab: Refills(s) 0 atorvastatin 10 mg Tab: mg tab(s), Oral, Daily, Refills(s) 0 buPROPion 150 mg ER Tab: mg tab(s), Oral, BID, Refills(s) 0 gemfibrozil 600 mg Tab: mg tab(s), Oral, BID, Refills(s) 0 isosorbide mononitrate 30 mg ER Tab: mg tab(s), Oral, qAM, Refills(s) 0 levothyroxine 150 mcg (0.15 mg) Tab: Refills(s) 0 liothyronine 5 mcg Tab: microgram tab(s), Oral, Daily, Refills(s) 0 metformin 1000 mg oral tablet, extended release: mg tab(s), Oral, Daily, Refills(s) 0 metoprolol 25 mg ER Tab: mg tab(s), Oral, Daily, Refills(s) 0 nitroglycerin 0.4 mg sublingual Tab: 0.4 mg = 1 tab(s), SubLingual, q5min, PRN for chest pain, # 100 tab(s), Refills(s) 0, Home Medications (14) Active allopurinol 300 mg Tab atorvastatin 10 mg Tab , Oral, Daily buPROPion 150 mg ER Tab , Oral, BID Cipro 500 mg Tab See Instructions DilTIAZem (Eqv-Cardizem CD) 120 mg/24 hours oral capsule, extended release Eliquis 5 mg oral tablet 5 mg = 1 tab(s), Oral, BID gemfibrozil 600 mg Tab , Oral, BID isosorbide mononitrate 30 mg ER Tab , Oral, qAM Lasix 20 mg Tab , Oral, Daily levothyroxine 150 mcg (0.15 mg) Tab liothyronine 5 mcg Tab , Oral, Daily metformin 1000 mg oral tablet, extended release , Oral, Daily metoprolol 25 mg ER Tab , Oral, Daily nitroglycerin 0.4 mg sublingual Tab 0.4 mg = 1 tab(s), PRN, SubLingual, q5min Problem list: All Problems Diabetes / SNOMED CT 549814645 / Confirmed Hypertension / SNOMED CT 8725605694 / Confirmed Nephrolithiasis / SNOMED CT 079591703 / Confirmed Frequent urination / SNOMED CT 927982536 / Confirmed Urinary urgency / SNOMED CT 406996726 / Confirmed Nocturia / SNOMED CT 638011125 / Confirmed Urge incontinence / SNOMED CT 442833917 / Confirmed Stress incontinence / SNOMED CT 772025014 / Confirmed Overactive bladder / SNOMED CT 2898219595 / Confirmed Anticoagulated / SNOMED CT 010144186 / Confirmed Mixed incontinence / SNOMED CT 50698815 / Confirmed OAB (overactive bladder) / SNOMED CT 0639957831 / Confirmed Incomplete bladder emptying / SNOMED CT 702627204 / Confirmed Morbid obesity with BMI of 40.0-44.9, adult / IMO [id number] / Possible Problem added automatically by Discern Expert based on clinical documentation, Active Problems (14) Anticoagulated Diabetes Frequent urination Hypertension Incomplete bladder emptying Mixed incontinence Morbid obesity with BMI of 40.0-44.9, adult Nephrolithiasis Nocturia OAB (overactive bladder) Overactive bladder Stress incontinence Urge incontinence Urinary urgency History of Present Illness The patient recently saw Radha in the office with recommendation made for cystoscopy secondary to ongoing overactivity of the bladder. She has had her last Botox instillation in 2020 and has continued symptoms of both leakage with coughing sneezing and activity as well as with and urge to go to the bathroom. She may have had 2 urinary tract infections within the past year but this is not a chronic problem for her. She witnessed the cystoscopic evaluation today. Objective Additional Findings: Additional Findings: Unexpected findings encountered during today's procedure outside of the original HPI. Measurements from flowsheet : Measurements 07/07/2025 9:07 EDT Height/Length Measured 149 cm Height/Length Dosing 149.0 cm Weight Dosing 92.0 kg BSA Measured 1.95 m2 Body Mass Index Measured 41.44 kg/m2 Weight Measured 92 kg Obese. Abdomen: Soft, nontender Some irritation of the external female genitalia. Awake alert oriented cooperative Impression and Plan Assessment and Plan: Diagnosis: Mixed stress and urge incontinence (HZC77-RQ N39.46, Working, Medical), OAB (overactive bladder) (PSD04-GQ N32.81, Working, (more content not included)...[facility]Comment [facility] above:Result Comment: Electronically Signed By: TIN GASCA, Niru Sanchez\.br\Date and Time Signed: 07/07/25 09:42 [id number] NotePatient Education Cystoscopy ??? Voiding after the procedure: there may be some pain, burning, urgency, frequency and blood tinged urine following the procedure. These symptoms usually resolve within 2-5 days. Drink the amount of fluid it takes to keep the urine pink to yellow or clear in color. Drinking enough water and fluids will help to ease any discomfort after your procedure. ??? If you are having problems that seem out of the ordinary, please call. ??? If unable to contact your physician and you feel it is an emergency, go to the nearest emergency room or call 911 ??? Diet ??? you may resume your normal diet. ??? Activity ??? you may resume your normal activities ??? Call if you have a fever over [address] 07-04-2025 Evaluation note* Diagnosis Essential hypertension- Primary Unspecified essential hypertension Stage 3a chronic kidney disease (CMS-HCC) Hyperlipidemia, mixed Mixed hyperlipidemia Type 2 diabetes mellitus with stage 3a chronic kidney disease, without long-term current use of insulin (HCC) Microalbuminuric diabetic nephropathy (HCC) Hyperuricemia Other abnormal blood chemistry Pulmonary hypertension (HCC) Other chronic pulmonary heart diseases Recurrent major depressive disorder, in partial remission Coronary artery disease involving [place] coronary artery of [place] heart without angina pectoris Morbid obesity ([facility]-HCC) Morbid obesity documented in this encounter [facility] HospitalVhlfdfccte14-04-7529 History of Present illness Narrative* Aashish Laguna MD - 06/30/2025 2:00 PM EDT Images from the original note were not included. Patient ID: Patricia Blake is a 75 y.o. female who presents for: Hypertension Patient is here for follow-up of elevated blood pressure. She is exercising and is adherent to a low-salt diet. Blood pressure is well controlled at home. Cardiac symptoms: dyspnea. Patient denies chest pain, irregular heart beat, lower extremity edema, and palpitations. Cardiovascular risk factors: advanced age (older than 55 for men, 65 for women), diabetes mellitus, dyslipidemia, hypertension,microalbuminuria, obesity (BMI >= 30 kg/m2), and sedentary lifestyle. Use of agents associated with hypertension: thyroid hormones. History of target organ damage: angina/ prior myocardial infarction, chronic kidney disease, and prior coronary revascularization. Hyperlipidemia Pt who presents for follow-up of dyslipidemia. A repeat fasting lipid profile was not done. The patient does not use medications that may worsen dyslipidemias (corticosteroids, progestins, anabolic steroids, diuretics, beta-blockers, amiodarone, cyclosporine, olanzapine). Exercise: rarely. Diabetes Mellitus Patient presents for follow up of diabetes. Current symptoms include: polyuria and visual disturbances. Symptoms have stabilized. Patient denies increased appetite and polydipsia. Evaluation to date has included: hemoglobin A1C. Home sugars: patient does not check sugars. [...] midline. No masses are appreciated. The heart is regular rate and rhythm without S3, S4. 2/6 systolic murmur. The patient has prolonged expiratory respiratory pattern. The breath sounds are diffusely decreasedbut symmetrical without evidence of rhonchi or rales. No wheezing. The skin is warm and dry. The lower extremities have trace to 1+ edema. The patient has good eye contact and speech is clear. Appropriate affect. 04/28/2025 2:22 PM 04/20/2025 2:01 PM 01/13/2025 2:31 PM 12/27/2024 11:38 AM Vitals BMI 42.32 kg/m2 42.42 kg/m2 41.42 kg/m2 42.32 kg/m2 BSA (m2) 1.96 m2 1.97 m2 1.94 m2 1.96 m2 Systolic 128 Diastolic 76 Heart Rate 95 112 SpO2 98 % 97 % Height (in) 4' 10.5 4' 10.5 4' 10.5 4' 10.5 Weight (lb) 206 206.5 201.6 206 Visit Report Report Report Report Report Allergies[1] Medications Ordered Prior to Encounter[2] 1. Essential hypertension (Primary) Chronic problem, stable, comanaged with Cardiology. 2. Stage 3a chronic kidney disease (CMS-HCC) Chronic problem demonstrating end-organ damage from her illnesses. Stable and actually improving some from previous. 3. Hyperlipidemia, mixed Chronic problem, stable, comanaged with Cardiology. 4. Type 2 diabetes mellitus with stage 3a chronic kidney disease, without long- term current use of insulin (HCC) Chronic problem, stable, to goal. Continue current treatment. - metFORMIN (Glucophage) 1000 MG tablet; Take 1 tablet (1,000 mg) by mouth in the morning and 1 tablet (1,000 mg) in the evening. Take with meals. Dispense: 180 tablet; Refill: 1 5. Microalbuminuric diabetic nephropathy (HCC) Chronic problem, defining an aspect the nephropathy, with significant risk, uncertain progression requiring longitudinal monitoring, and moderate decision making. Microalbuminuria describes a moderate increase in the level of urine albumin. Normally, the kidneysfilter albumin, so if the kidney leaks small amounts of albumin into the urine then it is a indicator of chronic kidney disease. Microalbuminuria is an independent indicator of increased cardiovascular risk among individuals andtherefore can be used for risk stratification for cardiovascular disease. 6. Type 2 diabetes mellitus with stage 3b chronic kidney disease, without long- term current use of insulin (HCC) This is a chronic problem that will be removed after this visit. She has gone from stage IIIB into stage IIIA with improvement in her kidney function. Medical record is also updated. 7. Hyperuricemia In prescribing a renewal to their current medication, consideration of the following encompasses moderate decision making; the current prescriptions and supplements, the current allergies and medication intolerances, current medical conditions, and potential drug interactions. The patient was given a chance to ask questions today and all questions were answered. - allopurinol (Zyloprim) 300 MG tablet; Take 1 tablet (300 mg) by mouth Daily Dispense: 90 tablet; Refill: 1 8. Pulmonary hypertension (HCC) Chronic problem, stable, comanaged with Cardiology. - furosemide (Lasix) 20 MG tablet; Take 1 tablet (20 mg) by mouth in the morning. Dispense: 90 tablet; Refill: 1 9. Recurrent major depressive disorder, in partial remission Chronic problem that is stable and actually seems a little bit better for her. - buPROPion SR (Wellbutrin SR) 150 MG 12 hr tablet; Take 1 tablet (150 mg) by mouth in the morning and 1 tablet (150 mg) before bedtime. Dispense: 180 tablet; Refill: 0 10. Coronary artery disease involving [place] coronary artery of [place] heart without angina pectoris Chronic problem, stable, comanaged with Cardiology. No evidence of angina or anginal equivalents today. - nitroglycerin (Nitrostat) 0.4 MG SL tablet; Place 1 tablet (0.4 mg) under the tongue every 5 (five) minutes if needed for chest pain Dispense: 25 tablet; Refill: 0 11. Morbid obesity (CMS-HCC) Encouraged regular but limited and intermittent exercise. Please Note: Portions of this chart may have been created using voice recognition software. Occasionally a wrong-word or sound-like substitutions may have occurred due to inherent limitations of the voice recognition software. Please read the chart carefully and recognize, using context, where the substitutions may have occurred. [1] Allergies Allergen Reactions Amino Acids Amoxicillin Lisinopril Swelling Sulfanilamide Penicillin G Rash [2] Current Outpatient Medications on File Prior to Visit Medication Sig Dispense Refill albuterol HFA 90 mcg/act inhaler Inhale 2 puffs every 6 (six) hours if needed for shortness of breath 18 g 11 allopurinol (Zyloprim) 300 MG tablet Take 1 tablet (300 mg) by mouth Daily 90 tablet 1 atorvastatin (Lipitor) 10 MG tablet Take 1 tablet (10 mg) by mouth Daily 90 tablet 1 buPROPion SR (Wellbutrin SR) 150 MG 12 hr tablet Take 1 tablet (150 mg) by mouth in the morning and1 tablet (150 mg) before bedtime. 180 tablet 1 dilTIAZem CD (Cardizem CD) 120 MG 24 [...] tablet (30 mg) by mouth Daily 30 tablet1 levothyroxine (Synthroid, Levoxyl) 150 MCG tablet Take 1 tablet (150 mcg) by mouth in the morning. Take before meals. 30 tablet 0 liothyronine (Cytomel) 5 MCG tablet Take 1 tablet in AM and 1 tablet in PM on an empty stomach. DUARTE; [employer] or [employer] brands only 60 tablet 0 metFORMIN (Glucophage) 1000 MG tablet Take 1 tablet (1,000 mg) by mouth in the morning and 1 tablet(1,000 mg) in the evening. Take with meals. 180 tablet 1 metoprolol tartrate (Lopressor) 50 MG tablet Take 100 mg by mouth in the morning and 100 mg before bedtime. No current facility-administered medications on file prior to visit. documented in this encounterB[facility] [id number] Hospital Discharge instructions Patient Education 06/21/2025 14:17:36 Urinary Incontinence Urinary Incontinence Urinary incontinence refers to a condition in which a person is unable to control where and when topass urine. A person with this condition will urinate involuntarily. This means that the person urinates when he or she does not mean to. What are the causes? This condition may be caused by: Medicines. Infections. Constipation. Overactive bladder muscles. Weak bladder muscles. Weak pelvic floor muscles. These muscles provide support for the bladder, intestine, and, in women,the uterus. Enlarged prostate in men. The prostate is a gland near the bladder. When it gets too big, it can pinch the urethra. With the urethra blocked, the bladder can weaken and lose the ability to empty properly. Surgery. Emotional factors, such as anxiety, stress, or post-traumatic stress disorder (PTSD). Spinal cord injury, nerve injury, or other neurological conditions. Pelvic organ prolapse. This happens in women when organs move out of place and into the vagina. This movement can prevent the bladder and urethra from working properly. What increases the risk? The following factors may make you more likely to develop this condition: Age. The older you are, the higher the risk. Obesity. Being physically inactive. and childbirth. Menopause. Diseases that affect the nerves or spinal cord. Long-term, or chronic, coughing. This can increase pressure on the bladder and pelvic floor muscles. What are the signs or symptoms? Symptoms may vary depending on the type of urinary incontinence you have. They include: A sudden urge to urinate, and passing urine involuntarily before you can get to a bathroom (urge incontinence). Suddenly passing urine when doing activities that force urine to pass, such as coughing, laughing, exercising, or sneezing (stress incontinence). Needing to urinate often but urinating only a small amount, or constantly dribbling urine (overflowincontinence). Urinating because you cannot get to the bathroom in time due to a physical disability, such as arthritis or injury, or due to a communication or thinking problem, such as Alzheimer's disease (functional incontinence). How is this diagnosed? This condition may be diagnosed based on: Your medical history. A physical exam. Tests, such as: ?Urine tests. ?X-rays of your kidney and bladder. ?Ultrasound. ?CT scan. ?Cystoscopy. In this procedure, a health care provider inserts a tube with a light and camera (cystoscope) through the urethra and into the bladder to check for problems. ?Urodynamic testing. These tests assess how well the bladder, urethra, and sphincter can store and release urine. There are different types of urodynamic tests, and they vary depending on what the test is measuring. To help diagnose your condition, your health care provider may recommend that you keep a log of when you urinate and how much you urinate. How is this treated? Treatment for this condition depends on the type of incontinence that you have and its cause. Treatment may include: Lifestyle changes, such as: ?Quitting smoking. ?Maintaining a healthy weight. ?Staying active. Try to get 150 minutes of moderate-intensity exercise every week. Ask your health care provider which activities are safe for you. ?Eating a healthy diet. ?Avoid high-fat foods, like fried foods. ?Avoid refined carbohydrates like white bread and white rice. ?Limit how much alcohol and caffeine you drink. ?Increase your fiber intake. Healthy sources of fiber include beans, whole grains, and fresh fruitsand vegetables. Behavioral changes, such as: ?Pelvic floor muscle exercises. ?Bladder training, such as lengthening the amount of time between bathroom breaks, or using the bathroom at regular intervals. ?Using techniques to suppress bladder urges. This can include distraction techniques or controlled breathing exercises. Medicines, such as: ?Medicines to relax the bladder muscles and prevent bladder spasms. ?Medicines to help slow or prevent the growth of a man's prostate. ?Botox injections. These can help relax the bladder muscles. Treatments, such as: ?Using pulses of electricity to help change bladder reflexes (electrical nerve stimulation). ?For women, using a veterinary medical officer to prevent urine leaks. This is a small, tampon-like, disposabledevice that is inserted into the urethra. ?Injecting collagen or carbon beads (bulking agents) into the urinary sphincter. These can help thicken tissue and close the bladder opening. ?Surgery. Follow these instructions at home: Lifestyle Limit alcohol and caffeine. These can fill your bladder quickly and irritate it. Keep yourself clean to help prevent odors and skin damage. Ask your health care provider about special skin creams and cleansers that can protect the skin from urine. Consider wearing pads or adult diapers. Make sure to change them regularly, and always change them right after experiencing incontinence. General instructions Take ctql-mes-doxorqm and prescription medicines only as told by your health care provider. Use the bathroom about every 3 4 hours, even if you do not feel the need to urinate. Try to empty your bladder completely every time. After urinating, wait a minute. Then try to urinate again. Make sure you are in a relaxed position while urinating. If your incontinence is caused by nerve problems, keep a log of the medicines you take and the times you go to the bathroom. Keep all follow-up visits. This is important. Where to find more information National [place] [employer] and Digestive and Kidney Diseases: www.niddk.nih.gov [place] [employer]: www.urologyhealth.org Contact a health care provider if: You have pain that gets worse. Your incontinence gets worse. Get help right away if: You have a fever or chills. You are unable to urinate. You have redness in your groin area or down your legs. Summary Urinary incontinence refers to a condition in which a person is unable to control where and when topass urine. This condition may be caused by medicines, infection, weak bladder muscles, weak pelvic floor muscles, enlargement of the prostate (in men), or surgery. Factors such as older age, obesity, and childbirth, menopause, neurological diseases, andchronic coughing may increase your risk for developing this condition. Types of urinary incontinence include urge incontinence, stress incontinence, overflow incontinence, and functional incontinence. This condition is usually treated first with lifestyle and behavioral changes, such as quitting smoking, eating a healthier diet, and doing regular pelvic floor exercises. Other treatment options include medicines, bulking agents, medical devices, electrical nerve stimulation, or surgery. This information is not intended to replace advice given to you by your health care provider. Make sure you discuss any questions you have with your health care provider. Document Revised: 03/30/2021 Document Reviewed: 03/30/2021 [employer] Education 2023 [employer]. 06/21/2025 14:17:35 Overactive Bladder, Adult Overactive Bladder, Adult Overactive bladder is a condition in which a person has a sudden and frequent need to urinate. A person might also leak urine if he or she cannot get to the bathroom fast enough (urinary incontinence). Sometimes, symptoms can interfere with work or social activities. What are the causes? Overactive bladder is associated with poor nerve signals between your bladder and your brain. Your bladder may get the signal to empty before it is full. You may also have very sensitive muscles thatmake your bladder squeeze too soon. This condition may also be caused by other factors, such as: Medical conditions: ?Urinary tract infection. ?Infection of nearby tissues. ?Prostate enlargement. ?Bladder stones, inflammation, or tumors. ?Diabetes. ?Muscle or nerve weakness, especially from these conditions: ?A spinal cord injury. ?Stroke. ?Multiple sclerosis. ?Parkinson's disease. Other causes: ?Surgery on the uterus or urethra. ?Drinking too much caffeine or alcohol. ?Certain medicines, especially those that eliminate extra fluid in the body (diuretics). ?Constipation. What increases the risk? You may be at greater risk for overactive bladder if you: Are an older adult. Smoke. Are going through menopause. Have prostate problems. Have a neurological disease, such as stroke, dementia, Parkinson's disease, or multiple sclerosis (MS). Eat or drink alcohol, spicy food, caffeine, and other things that irritate the bladder. Are overweight or obese. What are the signs or symptoms? Symptoms of this condition include a sudden, strong urge to urinate. Other symptoms include: Leaking urine. Urinating 8 or more times a day. Waking up to urinate 2 or more times overnight. How is this diagnosed? This condition may be diagnosed based on: Your symptoms and medical history. A physical exam. Blood or urine tests to check for possible causes, such as infection. You may also need to see a health care provider who specializes in urinary tract problems. This is called a urologist. How is this treated? Treatment for overactive bladder depends on the cause of your condition and whether it is mild or severe. Treatment may include: Bladder training, such as: ?Learning to control the urge to urinate by following a schedule to urinate at regular intervals. ?Doing Kegel exercises to strengthen the pelvic floor muscles that support your bladder. Special devices, such as: ?Biofeedback. This uses sensors to help you become aware of your body's signals. ?Electrical stimulation. This uses electrodes placed inside the body (implanted) or outside the body. These electrodes send gentle pulses of electricity to strengthen the nerves or muscles that control the bladder. ?Women may use a plastic device, called a pessary, that fits into the vagina and supports the bladder. Medicines, such as: ?Antibiotics to treat bladder infection. ?Antispasmodics to stop the bladder from releasing urine at the wrong time. ?Tricyclic antidepressants to relax bladder muscles. ?Injections of botulinum toxin type A directly into the bladder tissue to relax bladder muscles. Surgery, such as: ?A device may be implanted to help manage the nerve signals that control urination. ?An electrode may be implanted to stimulate electrical signals in the bladder. ?A procedure may be done to change the shape of the bladder. This is done only in very severe cases. Follow these instructions at home: Eating and drinking Make diet or lifestyle changes recommended by your health care provider. These may include: ?Drinking fluids throughout the day and not only with meals. ?Cutting down on caffeine or alcohol. ?Eating a healthy and balanced diet to prevent constipation. This may include: ?Choosing foods that are high in fiber, such as beans, whole grains, and fresh fruits and vegetables. ?Limiting foods that are high in fat and processed sugars, such as fried and sweet foods. Lifestyle Lose weight if needed. Do not use any products that contain nicotine or tobacco. These include cigarettes, chewing tobacco, and vaping devices, such as e-cigarettes. If you need help quitting, ask your health care provider. General instructions Take omkn-[id number] and prescription medicines only as told by your health care provider. If you were prescribed an antibiotic medicine, take it as told by your health care provider. Do notstop taking the antibiotic even if you start to feel better. Use any implants or pessary as told by your health care provider. If needed, wear pads to absorb urine leakage. Keep a log to track how much and when you drink, and when you need to urinate. This will help your health care provider monitor your condition. Keep all follow-up visits. This is important. Contact a health care provider if: You have a fever or chills. Your symptoms do not get better with treatment. Your pain and discomfort get worse. You have more frequent urges to urinate. Get help right away if: You are not able to control your bladder. Summary Overactive bladder refers to a condition in which a person has a sudden and frequent need to urinate. Several conditions may lead to an overactive bladder. Treatment for overactive bladder depends on the cause and severity of your condition. Making lifestyle changes, doing Kegel exercises, keeping a log, and taking medicines can help with this condition. This information is not intended to replace advice given to you by your health care provider. Make sure you discuss any questions you have with your health care provider. Document Revised: 05/14/2021 Document Reviewed: 05/14/2021 [employer] Patient Education 2023 [employer] Follow Up Care 06/13/2025 15:22:41 With:TIN GASCA, Niru Sanchez, URL Address: [address] [place], [place] [id number]- When: Unknown Comments:cysto [facility] Steph 10-14-2025 NotePatient Education Obstetrics and Gynecology Overactive Bladder, Adult Overactive bladder is a condition in which a person has a sudden and frequent need to urinate. A person might also leak urine if he or she cannot get to the bathroom fast enough (urinary incontinence). Sometimes, symptoms can interfere with work or social activities. What are the causes? Overactive bladder is associated with poor nerve signals between your bladder and your brain. Your bladder may get the signal to empty before it is full. You may also have very sensitive muscles thatmake your bladder squeeze too soon. This condition may also be caused by other factors, such as: ??? Medical conditions: ? Urinary tract infection. ? Infection of nearby tissues. ? Prostate enlargement. ? Bladder stones, inflammation, or tumors. ? Diabetes. ? Muscle or nerve weakness, especially from these conditions: ? A spinal cord injury. ? Stroke. ? Multiple sclerosis. ? Parkinson's disease. ??? Other causes: ? Surgery on the uterus or urethra. ? Drinking too much caffeine or alcohol. ? Certain medicines, especially those that eliminate extra fluid in the body (diuretics). ? Constipation. What increases the risk? You may be at greater risk for overactive bladder if you: ??? Are an older adult. ??? Smoke. ??? Are going through menopause. ??? Have prostate problems. ??? Have a neurological disease, such as stroke, dementia, Parkinson's disease, or multiple sclerosis (MS). ??? Eat or drink alcohol, spicy food, caffeine, and other things that irritate the bladder. ??? Are overweight or obese. What are the signs or symptoms? Symptoms of this condition include a sudden, strong urge to urinate. Other symptoms include: ??? Leaking urine. ??? Urinating 8 or more times a day. ??? Waking up to urinate 2 or more times overnight. How is this diagnosed? This condition may be diagnosed based on: ??? Your symptoms and medical history. ??? A physical exam. ??? Blood or urine tests to check for possible causes, such as infection. You may also need to see a health care provider who specializes in urinary tract problems. This is called a urologist. How is this treated? Treatment for overactive bladder depends on the cause of your condition and whether it is mild or severe. Treatment may include: ??? Bladder training, such as: ? Learning to control the urge to urinate by following a schedule to urinate at regular intervals. ? Doing Kegel exercises to strengthen the pelvic floor muscles that support your bladder. ??? Special devices, such as: ? Biofeedback. This uses sensors to help you become aware of your body's signals. ? Electrical stimulation. This uses electrodes placed inside the body (implanted) or outside the body. These electrodes send gentle pulses of electricity to strengthen the nerves or muscles that control the bladder. ? Women may use a plastic device, called a pessary, that fits into the vagina and supports the bladder. ??? Medicines, such as: ? Antibiotics to treat bladder infection. ? Antispasmodics to stop the bladder from releasing urine at the wrong time. ? Tricyclic antidepressants to relax bladder muscles. ? Injections of botulinum toxin type A directly into the bladder tissue to relax bladder muscles. ??? Surgery, such as: ? A device may be implanted to help manage the nerve signals that control urination. ? An electrode may be implanted to stimulate electrical signals in the bladder. ? A procedure may be done to change the shape of the bladder. This is done only in very severe cases. Follow these instructions at home: Eating and drinking ??? Make diet or lifestyle changes recommended by your health care provider. These may include: ? Drinking fluids throughout the day and not only with meals. ? Cutting down on caffeine or alcohol. ? Eating a healthy and balanced diet to prevent constipation. This may include: ? Choosing foods that are high in fiber, such as beans, whole grains, and fresh fruits and vegetables. ? Limiting foods that are high in fat and processed sugars, such as fried and sweet foods. Lifestyle ??? Lose weight if needed. ??? Do not use any products that contain nicotine or tobacco. These include cigarettes, chewing tobacco, and vaping devices, such as e-cigarettes. If you need help quitting, ask your health care provider. General instructions ??? Take zuij-ura-ygzyuky and prescription medicines only as told by your health care provider. ??? If you were prescribed an antibiotic medicine, take it as told by your health care provider. Donot stop taking the antibiotic even if you start to feel better. ??? Use any implants or pessary as told by your health care provider. ??? If needed, wear pads to absorb urine leakage. ??? Keep a log to track how much and when you drink, and whe (more content not included)...[facility]08-21-2025 History of Present illness Narrative* Aashish Laguna MD - 04/28/2025 2:00 PM EDT Images from the original note were not included. Patient ID: Patricia Blake is a 75 y.o. female who presents for: Knee Pain: Patient who presents for follow up on a knee problem involving both knees. Onset was years. Inciting event: this is a longstanding problem which has been getting worse. Current symptoms include: painlocated both legs, stiffness, and swelling. Pain is aggravated by going up and down stairs, standing, and walking. Patient has had prior knee problems. The patient is specifically requesting repeat knee injection. Review of Systems No injury. No specific giving out of the knee. Objective The patient is pleasant and in no acute distress The patient has good eye contact and clear speech Both knees are normal in calor and no rubor. There is some mild edema around the patella bilaterally. There is crepitus bilaterally. Adequate range of motion. 04/20/2025 2:01 PM 01/13/2025 2:31 PM 12/27/2024 11:38 AM 11/09/2024 1:57 PM Vitals BMI 42.42 kg/m2 41.42 kg/m2 42.32 kg/m2 42.49 kg/m2 BSA (m2) 1.97 m2 1.94 m2 1.96 m2 1.97 m2 Systolic 128 120 Diastolic 76 72 Heart Rate 95 112 103 SpO2 98 % 97 % 97 % Height (in) 4' 10.5 4' 10.5 4' 10.5 4' 10.5 Weight (lb) 206.5 201.6 206 206.8 Visit Report Report Report Report Report Allergies Allergen Reactions Amino Acids Amoxicillin Lisinopril Swelling Sulfanilamide Penicillin G Rash Current Outpatient Medications on File Prior to Visit Medication Sig Dispense Refill albuterol HFA 90 mcg/act inhaler Inhale 2 puffs every 6 (six) hours if needed for shortness of breath 18 g 11 allopurinol (Zyloprim) 300 MG tablet Take 1 tablet (300 mg) by mouth Daily 90 tablet 1 atorvastatin (Lipitor) 10 MG tablet Take 1 tablet (10 mg) by mouth Daily 90 tablet 1 buPROPion SR (Wellbutrin SR) 150 MG 12 hr tablet Take 1 tablet (150 mg) by mouth in the morning and1 tablet (150 mg) before bedtime. 180 tablet 1 dilTIAZem CD (Cardizem CD) 120 MG 24 [...] tablet (30 mg) by mouth Daily 30 tablet1 levothyroxine (Synthroid, Levoxyl) 150 MCG tablet Take 1 tablet (150 mcg) by mouth in the morning. Take before meals. 30 tablet 0 liothyronine (Cytomel) 5 MCG tablet Take 1 tablet in AM and 1 tablet in PM on an empty stomach. DUARTE; [employer] or [employer] brands only 60 tablet 0 metFORMIN (Glucophage) 1000 MG tablet Take 1 tablet (1,000 mg) by mouth in the morning and 1 tablet(1,000 mg) in the evening. Take with meals. 180 tablet 1 metoprolol tartrate (Lopressor) 50 MG tablet Take 100 mg by mouth in the morning and 100 mg before bedtime. [DISCONTINUED] allopurinol (Zyloprim) 300 MG tablet Take 1 tablet (300 mg) by mouth Daily 90 tablet1 [DISCONTINUED] levothyroxine (Synthroid, Levoxyl) 150 MCG tablet Take 1 tablet (150 mcg) by mouth in the morning. Take before meals. 90 tablet 0 [DISCONTINUED] liothyronine (Cytomel) 5 MCG tablet Take 1 tablet in AM and 1 tablet in PM on an empty stomach. DUARTE; Premium Store or [employer] brands only 180 tablet 1 [DISCONTINUED] metoprolol tartrate (Lopressor) 100 MG tablet Take 100 mg by mouth in the morning and 100 mg before bedtime. No current facility-administered medications on file prior to visit. 1. Bilateral chronic knee pain (Primary) After discussion with her and specifically concerning the slight increase bleeding risk due to the Eliquis, we went ahead and proceeded with bilateral arthrocentesis. - methylPREDNISolone acetate (DEPO-Medrol) injection 80 mg - methylPREDNISolone acetate (DEPO-Medrol) injection 80 mg 2. Arthritis of knee, right Prior to the arthrocentesis, we confirmed with the patient which knee(s) the procedure was to be performed on. Verbal informed consent was obtained, the risks include; bleeding/bruising, infection, dimpling of the skin, post injection pain or nerve damage, and the possibility of no improvement to the patient's complaints. The arthrocentesis to the right knee joint was done with the patient in a seated position. The skin was prepped with alcohol until clear and then betadine to dry. A 25- guage, 1 1/2-inch needle was inserted into the space between the tibial plateau and the patella. Once within the knee joint, I injected a solution containing 80 mg of Depo-Medrol (1cc). The needle was removed and a dressing was applied. The patient tolerated the procedure well. The patient has been instructed in post-procedure care. - methylPREDNISolone acetate (DEPO-Medrol) injection 80 mg 3. Arthritis of knee, left We then proceeded to the left knee. The arthrocentesis to the Left knee joint was done with the patient in a seated position. The skin was prepped with alcohol until clear and then betadine to dry. A 25- guage, 1 1/2-inch needle was inserted into the space between the tibial plateau and the patella. Once within the knee joint, I injected a solution containing 80 mg of Depo-Medrol (1cc). The needle was removed and a dressing was applied. The patient tolerated the procedure well. The patient has been instructed in post-procedure care. - methylPREDNISolone acetate (DEPO-Medrol) injection 80 mg 4. [place] Encouraged continued walking and lifestyle modification this is a comorbid condition 5. BMI 40.0-44.9, adult ([facility]) Defines the morbid obesity Please Note: Portions of this chart may have been created using voice recognition software. Occasionally a wrong-word or sound-like substitutions may have occurred due to inherent limitations of the voice recognition software. Please read the chart carefully and recognize, using context, where the substitutions may have occurred. documented in this encounterBates County Memorial [id number] History of Present illness Narrative* Aashish Laguna MD - 04/20/2025 2:00 PM EDT Images from the original note were not included. Patient ID: Patricia Blake is a 75 y.o. female who presents for: Thyroid: Pt here today to review his/hers thyroid labs and any medication changes needed. Fatigue: Present, Unchanged Weight Gain: Present Inability to lose weight: Present, Unchanged Hair Changes: Present He/She is following the thyroid diet: Good He/She are taking medications as directed: Good He/She are exercising at least 3 days out of the week for 30 minutes or more: Poor, knee are bothering Pt states with all her medications her mouth has been really dry. Anxiety Patient is here for evaluation of [...] Cardiovascular: Negative for palpitations. Musculoskeletal: Positive for arthralgias. Negative for myalgias. Psychiatric/Behavioral: Negative for sleep disturbance. The patient is not nervous/anxious. Endocrine: Positive for heat intolerance. Negative for cold intolerance. TSH 5.45 Calculated THY Ratio: 12.9 Objective Visit Vitals Ht 4' 10.5 Wt 206 lb 8 oz BMI 42.42 kg/m OB Status Postmenopausal Smoking Status Never BSA 1.97 m Allergies Allergen Reactions Amino Acids Amoxicillin Lisinopril Swelling Sulfanilamide Penicillin G Rash Current Outpatient Medications on File Prior to Visit Medication Sig Dispense Refill albuterol HFA 90 mcg/act inhaler Inhale 2 puffs every 6 (six) hours if needed for shortness of breath 18 g 11 allopurinol (Zyloprim) 300 MG tablet Take 1 tablet (300 mg) by mouth Daily 90 tablet 1 atorvastatin (Lipitor) 10 MG tablet Take 1 tablet (10 mg) by mouth Daily 90 tablet 1 buPROPion SR (Wellbutrin SR) 150 MG 12 hr tablet Take 1 tablet (150 mg) by mouth in the morning and1 tablet (150 mg) before bedtime. 180 tablet 1 dilTIAZem CD (Cardizem CD) 120 MG 24 [...] tablet (30 mg) by mouth Daily 30 tablet1 levothyroxine (Synthroid, Levoxyl) 150 MCG tablet Take 1 tablet (150 mcg) by mouth in the morning. Take before meals. 90 tablet 0 liothyronine (Cytomel) 5 MCG tablet Take 1 tablet in AM and 1 tablet in PM on an empty stomach. DUARTE; [employer] or [employer] brands only 180 tablet 1 metFORMIN (Glucophage) 1000 MG tablet Take 1 tablet (1,000 mg) by mouth in the morning and 1 tablet(1,000 mg) in the evening. Take with meals. 180 tablet 1 metoprolol tartrate (Lopressor) 50 MG tablet Take 100 mg by mouth in the morning and 100 mg before bedtime. [DISCONTINUED] metoprolol tartrate (Lopressor) 100 MG tablet Take 100 mg by mouth in the morning and 100 mg before bedtime. No current facility-administered medications on file prior to visit. 1. Acquired hypothyroidism (Primary) This is a complex chronic problem, stable, [...] the patient's current prescriptions and discussed the possibilitiesof medication renewals, adjustments, new medication start, or [...] arise or if any problems occur. - levothyroxine (Synthroid, Levoxyl) 150 MCG tablet; Take 1 tablet (150 mcg) by mouth in the morning. Take before meals. Dispense: 30 tablet; Refill: 0 - TSH; Future - T4, free; Future - T3, free; Future - TSH - T4, free - T3, free 2. ESS (euthyroid sick syndrome) She has been missing the 2nd dose of her medication. We did discuss the importance of her being able to take this. I am wondering how she is doing with the 2nd dose of the other medicines. She says she takes those, but I am not sure I understand why she would not take this. We discussed how treating the euthyroid sick syndrome is not the standard of care and if she is missing that dose is actually harder on her body. I would recommend that we do a trial where she is compliant with the 2nd dosing and see if she is capable of making that happen. - liothyronine (Cytomel) 5 MCG tablet; Take 1 tablet in AM and 1 tablet in PM on an empty stomach. DUARTE; [employer] or [employer] brands only Dispense: 60 tablet; Refill: 0 - T3, free; Future - T3, free 3. Chronic fatigue Chronic problem, stable, complex in nature with moderate decision making. I discussed with the patient or their premium representative, their fatigue issues. We discussed how this is improved significantly. We discussed how this is almost always a multifactorial problem. We discussed how we will continue to search for refinements in their current treatments or evaluation for further disease processes and then support or treat them as appropriate. We discussed how we can frequently manage the symptoms, but may not be able to completely cure or resolve the issue. The patient will almost certainly need to continue to make lifestyle changes including diet, sleep, exercise, and stress management as appropriate. The patient was given a chance to ask questions and all questions were answered. 4. Recurrent major depressive disorder, in partial remission Chronic problem, stable, patient says she has plenty of medication does not need refills. 5. Chronic post-traumatic stress disorder (PTSD) Chronic problem. The patient is still struggles with thoughts of this frequently. She has previously done counselingand she is just not able to put this into her past. He has continues to cause her stress and sadness. 6. Hyperuricemia In prescribing a renewal to their current medication, consideration of the following encompasses moderate decision making; the current prescriptions and supplements, the current allergies and medication intolerances, current medical conditions, and potential drug interactions. The patient was given a chance to ask questions today and all questions were answered. - allopurinol (Zyloprim) 300 MG tablet; Take 1 tablet (300 mg) by mouth Daily Dispense: 90 tablet; Refill: 1 7. Side effect of medication She is complaining of the dry mouth. She only has 1 medication that specifically would cause some dry mouth and that would be the Lasix. The dry mouth is not like to using an albuterol breathing treatment. I discussed with her that we know she needs to help get the fluid off for now I would continue the Lasix. I also wonder she is staying hydrated enough and maybe that is why she is having a dry. She can also try some sugar free lozenges to help keep her mouth moist. We also discussed that she can buy artificial spit . Please Note: Portions of this chart may have been created using voice recognition software. Occasionally a wrong-word or sound-like substitutions may have occurred due to inherent limitations of the voice recognition software. Please read the chart carefully and recognize, using context, where the substitutions may have occurred. documented in this encounterBates County Memorial [id number] History of Present illness Narrative* Aashish Laguna MD - 01/13/2025 2:30 PM EDT Images from the original note were not included. Patient ID: Patricia Blake is a 74 y.o. female who presents for: Pt problem list has CKD as stage 3a and 3b? Pt had her labs drawn on Fri, quest is not releasing until A1C is completed. Hypertension Patient is here for follow-up of elevated blood pressure. She is not exercising and is adherent to a low-salt diet. Blood pressure is well controlled at home. Cardiac symptoms: dyspnea. Patient denies chest pain, irregular heart beat, lower extremity edema, and palpitations. Cardiovascular risk factors: advanced age (older than 55 for men, 65 for women), diabetes mellitus, dyslipidemia, hypertension, obesity (BMI >= 30 kg/m2), and sedentary lifestyle. Use of agents associated with hypertension: thyroid hormones. History of target organ damage: angina/ prior myocardial infarction, chronic kidney disease, and heart failure. Diabetes Mellitus Patient presents for follow up of diabetes. Current symptoms include: none. Symptoms have stabilized. Patient denies increased appetite, paresthesia of the feet, and visual disturbances. Evaluation to date has included: fasting blood sugar, fasting lipid panel, hemoglobin A1C, and microalbuminuria.Home sugars: patient does not check sugars. Hyperlipidemia Pt who presents for follow-up of dyslipidemia. A repeat fasting lipid profile was done. The patientdoes not use medications that may worsen dyslipidemias (corticosteroids, progestins, anabolic steroids, diuretics, beta-blockers, amiodarone, cyclosporine, olanzapine). Exercise: rarely. Review of Systems Constitutional: Negative for activity change and fatigue. Respiratory: Positive for shortness of breath. Negative for cough and wheezing. Cardiovascular: Positive for palpitations. Negative for chest pain and leg swelling. Neurological: Negative for light-headedness and headaches. Objective The patient is pleasant and in no acute distress. The neck is supple and trachea is midline. No masses are appreciated. The heart is regular rate and rhythm without S3, S4. No murmur. The patient has prolonged expiratory respiratory pattern. The breath sounds are diffusely decreasedbut symmetrical without evidence of rhonchi or rales. No wheezing. The skin is warm and dry. The lower extremities have trace to 1+ edema. The patient has good eye contact and speech is clear. Appropriate affect. Visit Vitals BP 128/76 Pulse 95 Ht 4' 10.5 Wt 201 lb 9.6 oz SpO2 98% BMI 41.42 kg/m OB Status Postmenopausal Smoking Status Never BSA 1.94 m 08/23/2024 10/26/2024 11/09/2024 12/27/2024 01/13/2025 Vitals SpO2 97 % 97 % 98 % Height (in) 4' 10.5 4' 11.75 4' 10.5 4' 10.5 4' 10.5 Weight (lb) 208 208 206.8 206 201.6 Visit Report -- -- -- -- -- Allergies Allergen Reactions Amino Acids Amoxicillin Lisinopril Swelling Sulfanilamide Penicillin G Rash Current Outpatient Medications on File Prior to Visit Medication Sig Dispense Refill albuterol HFA 90 mcg/act inhaler Inhale 2 puffs every 6 (six) hours if needed for shortness of breath 18 g 11 allopurinol (Zyloprim) 300 MG tablet Take 1 tablet (300 mg) by mouth Daily 90 tablet 1 atorvastatin (Lipitor) 10 MG tablet Take 1 tablet (10 mg) by mouth Daily 90 tablet 1 buPROPion SR (Wellbutrin SR) 150 MG 12 hr tablet Take 1 tablet (150 mg) by mouth in the morning and1 tablet (150 mg) before bedtime. 180 tablet 1 dilTIAZem CD (Cardizem CD) 120 MG 24 [...] tablet (30 mg) by mouth Daily 30 tablet1 levothyroxine (Synthroid, Levoxyl) 150 MCG tablet Take 1 tablet (150 mcg) by mouth in the morning. Take before meals. 90 tablet 0 liothyronine (Cytomel) 5 MCG tablet Take 1 tablet in AM and 1 tablet in PM on an empty stomach. DUARTE; [employer] or [employer] brands only 180 tablet 1 metFORMIN (Glucophage) 1000 MG tablet Take 1 tablet (1,000 mg) by mouth in the morning and 1 tablet(1,000 mg) in the evening. Take with meals. 180 tablet 1 metoprolol tartrate (Lopressor) 100 MG tablet Take 100 mg by mouth in the morning and 100 mg beforebedtime. No current facility-administered medications on file prior to visit. Call Friday after labs. Check med refills Check CKD and metformin Check allopurinol about refills. Check metoprolol dosing CMP stable. A1c stable. Lipid stable the not under the best control and to goal. Low HDL mild Elevation of triglycerides. Urine positive for microalbuminuria. 1. Essential hypertension (Primary) Chronic problem, stable, to goal, continue current treatment. 2. Hypertensive nephropathy Chronic problem, stable, to goal. 3. Stage 3a chronic kidney disease ([facility]-HCC) Clarification of stage 3 chronic kidney disease and upgraded both ICD 10 codes 4. Type 2 diabetes mellitus with stage 3a chronic kidney disease, without long- term current use of insulin (HCC) Chronic problem, stable, to goal 5. Hyperlipidemia, mixed Chronic problem that is relatively stable for her but she does have the low HDL which is an independent risk factor for cardiovascular disease which she already has. 6. Microalbuminuric diabetic nephropathy (HCC) Chronic problem, defining an aspect the nephropathy, with significant risk, uncertain progression requiring longitudinal monitoring, and moderate decision making. Microalbuminuria describes a moderate increase in the level of urine albumin. Normally, the kidneysfilter albumin, so if the kidney leaks small amounts of albumin into the urine then it is a indicator of chronic kidney disease. Microalbuminuria is an independent indicator of increased cardiovascular risk among individuals andtherefore can be used for risk stratification for cardiovascular disease. documented in this encounterBates County Memorial [id number] History of Present illness Narrative* Aashish Laguna MD - 12/27/2024 11:30 AM EDT Images from the original note were not included. Patient ID: Patricia Blake is a 74 y.o. female who presents for: Follow up from being in hospital and the SNF Flowsheet Row Patient Outreach from 12/22/2024 in [facility] with Maria T Hunt LPN Hospital Information ED, Hospital or Snf Facility Discharge? Snf Facility Discharge Date 12/21/24 Discharged To: Home Setting Snf Facilities [facility] Engagement Admission Date 12/01/24 Medications Discharge medications reviewed and reconciled from hospital? Yes [reconciled with dc med list] Is the patient having any side effects they believe may be caused by any medication additions or changes? No Is the patient taking all medications as directed (includes completed medication regime)? Yes [she is picking medication up from pharmacy] Appointments Does the patient have a primary care provider? Yes Nursing Interventions Verified appointment date/time/provider [12/27/2024 DR LAGUNA] Self Management Does patient have home health? yes What is the [place] health [place] [facility] [place] [place] Has home health visited the patient within 72 hours of discharge? Unsure [PT WAS DISCHARGED 12/21 SHE STATES THAT THEY CALLED HER TO SCHEDULE HER TO COME OUT] Patient Teaching Does the patient have access to their discharge instructions? No What is the patient's perception of their health status since discharge? Improving Wrap Up Review of Systems Constitutional: Negative for activity change and fatigue. Respiratory: Positive for shortness of breath. Negative for cough and wheezing. Cardiovascular: Negative for chest pain, palpitations and leg swelling. Musculoskeletal: Positive for arthralgias and gait problem. Neurological: Negative for light-headedness and headaches. Objective The patient is pleasant and in no acute distress. The neck is supple and trachea is midline. No masses are appreciated. The heart is very iregular rate and rhythm without S3, S4. No murmur. The patient has mildly prolonged expiratory respiratory pattern. The breath sounds are diffusely decreased but symmetrical without evidence of rhonchi or rales. No wheezing. The skin is warm and dry. The lower extremities have trace edema. The patient has good eye contact and speech is clear. Appropriate affect. The ankle and foot show no signs of gouty arthropathy. Visit Vitals Pulse (!) 112 Ht 4' 10.5 Wt 206 lb SpO2 97% BMI 42.32 kg/m OB Status Postmenopausal Smoking Status Never BSA 1.96 m Allergies Allergen Reactions Amino Acids Amoxicillin [...] (150 mg) by mouth in the morning and1 tablet (150 mg) before bedtime. 180 tablet 1 dilTIAZem CD (Cardizem CD) 120 MG 24 [...] tablet (30 mg) by mouth Daily 30 tablet1 levothyroxine (Synthroid, Levoxyl) 150 MCG tablet Take 150 mcg by mouth in the morning. Take beforemeals. liothyronine (Cytomel) 5 MCG tablet Take 1 tablet in AM and 1 tablet in PM on an empty stomach. DUARTE; [employer] or [employer] brands only 180 tablet 1 metFORMIN (Glucophage) 1000 MG tablet Take 1 tablet (1,000 mg) by mouth in the morning and 1 tablet(1,000 mg) in the evening. Take with meals. 180 tablet 1 metoprolol tartrate (Lopressor) 100 MG tablet Take 100 mg by mouth in the morning and 100 mg beforebedtime. potassium chloride CR (Klor-Con) 10 MEQ ER tablet Take 10 mEq by mouth every 12 (twelve) hours QUEtiapine (SEROquel) 25 MG tablet 1/2 tablet at bedtime 15 tablet 5 [DISCONTINUED] potassium chloride CR (Klor-Con) 10 MEQ ER tablet Take 10 mEq by mouth every 12 (twelve) hours. [DISCONTINUED] QUEtiapine (SEROquel) 25 MG tablet 1/2 tablet at bedtime 15 tablet 5 allopurinol (Zyloprim) 300 MG tablet Take 300 mg by mouth Daily [DISCONTINUED] levothyroxine (Synthroid, Levoxyl) 50 MCG tablet Take 1 tablet (50 mcg) by mouth in the morning. Take before meals. 90 tablet 1 [DISCONTINUED] metoprolol tartrate (Lopressor) 50 MG tablet Take 50 mg by mouth in the morning and 50 mg before bedtime. [DISCONTINUED] nystatin-triamcinolone (Mycolog II) ointment Apply topically 2 (two) times a day 30 g 0 No current facility-administered medications on file prior to visit. 1. Atrial fibrillation with rapid ventricular response (CMS/HCC) Her Afib is a chronic problem. Cardiology and I have had some trouble trying to keep her from beingtachycardic she then goes significantly bradycardic. The decision making process is to let her run a little bit tachycardic. Continue her current medications. She denies needing refills. She tells me when the ambulance got there she was somewhere near 200 beats per minute. 2. Interstitial pulmonary disease (CMS/HCC) Chronic problem, stable, a comorbid condition for her with her Afib. 3. Acute idiopathic gout of right ankle Acute problem resolved 4. Acute idiopathic gout involving toe of right foot Acute problem resolved 5. Hyperuricemia (Primary) After discussing with her she is certain they stopped her allopurinol and that she does not have anymore. We discussed the importance of having her hyperuricemia under control. In prescribing a renewal to their current [...] order to credit prescription drug management) - allopurinol (Zyloprim) 300 MG tablet; Take 1 tablet (300 mg) by mouth Daily Dispense: 90 tablet; Refill: 1 6. Chronic post-traumatic stress disorder (PTSD) (CMS/HCC) Chronic problem, stable, no real problems with this today. - QUEtiapine (SEROquel) 25 MG tablet; 1/2 tablet at bedtime Dispense: 15 tablet; Refill: 5 7. Encounter for examination following treatment at hospital This visit is prompted as a transition of care. The patient has been contacted by phone within 2 business days of discharge or at least 2 unsuccessful attempts were made to contact the patient within the 2 business days. Any available documents including; emergency room note, visit notes, consults, and discharge summary or continuity of care documents were reviewed. Any laboratory investigation or diagnostic imaging that was ordered by outside physicians and available was obtained and reviewed. The transition of care note is reviewed. a [id number]-yw-[id number] evaluation is done today. Medical decision making is complex in degree. documented in this encounterBates County Memorial [id number] History of Present illness Narrative* Aashish Laguna MD - 10/26/2024 2:00 PM EST Images from the original note were not [...] analytical performance characteristics have been determined by [employer] [place]. It has not been cleared or [...] (150 mg) by mouth in the morning and1 tablet (150 mg) before bedtime. 60 tablet [...] tablet (30 mg) by mouth Daily 30 tablet1 levothyroxine (Synthroid, Levoxyl) 50 MCG tablet Take 1 tablet (50 mcg) by mouth in the morning. Take before meals. 90 tablet 1 liothyronine (Cytomel) 5 MCG tablet Take 1 tablet in AM and 1 tablet in PM on an empty stomach. DUARTE; [employer] or [employer] brands only 180 tablet 1 metFORMIN (Glucophage) 1000 MG tablet Take 1 tablet (1,000 mg) by mouth in the morning and 1 tablet(1,000 mg) in the evening. Take with meals. [...] tablet (100 mg) by mouth Daily 30 tablet0 [DISCONTINUED] allopurinol (Zyloprim) 300 MG tablet Take 1 tablet (300 mg) by mouth Daily 30 [id number] [DISCONTINUED] colchicine 0.6 MG tablet initial dose of 1 tablet followed by 1 tablet every 2 hoursuntil the gouty pain is relieved, gastrointestinal symptoms [...] tablet (50 mcg) by mouth in the morning.Take before meals. Dispense: 90 tablet; Refill: 1 - T4, free; Future - TSH; Future - T4, free - TSH 2. Chronic fatigue Chronic problem, stable, complex in nature with moderate decision making. I discussed with the patient and/or their premium representative, their fatigue issues. We discussed how [...] the patient's current prescriptions and discussed the possibilitiesof medication renewals, adjustments, new medication start, or [...] in PM on an empty stomach. DUARTE; [employer] Store or [employer] brands only Dispense: 180 tablet; Refill: 1 - T3; Future - T3, reverse; Future - T3, free; Future - T3 - T3, reverse - T3, free 4. Morbid obesity (CMS/HCC) Chronic problem that is stable. We did encouraged lifestyle changes but she has been unable to institute them after previous discussions. 5. BMI 40.0-44.9, adult (CMS/HCC) Defines the morbid obesity documented in this encounterBates County Memorial [id number] History of Present illness Narrative* Michelle Hui MA - 08/23/2024 1:45 PM EST Images from the original note were not included. Angel Ramsey, DO Obstetrics and Gynecology Patricia Blake 1950 08/23/24 [id number] Yearly Wellness Exam Chief Complaint Patient presents with Gynecologic Exam Medicare yearly. LMP: 2003 HRT: None Last pap 08-14-22 neg. [place] [facility] [place] Denies breast, urinary, or bowel concerns. Visit [...] (150 mg) by mouth in the morning and1 tablet (150 mg) before bedtime. 60 tablet [...] tablet (30 mg) by mouth Daily 30 tablet1 levothyroxine (Synthroid, Levoxyl) 50 MCG tablet Take 1 tablet (50 mcg) by mouth in the morning. Take before meals. 90 tablet 1 liothyronine (Cytomel) 5 MCG tablet Take 1 tablet in AM and 1 tablet in PM on an empty stomach. DUARTE; [employer] or [employer] brands only 180 tablet 1 metFORMIN (Glucophage) 1000 MG tablet Take 1 tablet (1,000 mg) by mouth in the morning and 1 tablet(1,000 mg) in the evening. Take with meals. [...] Date BOTOX INJECTION Botox to bladder Dr. Oseguera CATARACT EXTRACTION W/ INTRAOCULAR LENS IMPLANT, BILATERAL 2014 COLONOSCOPY 2010 CORONARY STENT PLACEMENT 12/04/2016 CORONARY STENT PLACEMENT 05/2019 CYSTOSCOPY OK BREAST REDUCTION OK LAP,CHOLECYSTECTOMY Past Medical History: Diagnosis Date Arthritis Atrial fibrillation with rapid ventricular response (CMS/HCC) Bilateral fibrocystic breast changes Bronchitis Cataracts, bilateral Chronic fatigue Congestive heart failure (CHF) (CMS/HCC) Depression (CMS/HCC) Diabetes (CMS/HCC) Diabetic nephropathy associated with type 2 diabetes mellitus (HCC) ([facility]/HCC) H/O psychiatric care History of being hospitalized 06/2021 [facility] congestive heart failure, 3 days Hx of psychiatric care Hyperlipidemia ([facility]/HCC) Hypertension (CMS/HCC) Hypothyroid ([facility]/HCC) ESS Insulin resistance Irritable bowel syndrome with both constipation and diarrhea LAD (lymphadenopathy) Ostial LAD lesion 95% [place] (myocardial infarction) ([facility]/HCC) x2 Mild pulmonary hypertension ([facility]/HCC) Mumps Nephrolithiasis Obesity Pneumonia PTSD (post-traumatic stress disorder) ([facility]/HCC) Serum calcium elevated Stage 3 chronic kidney disease (HCC) ([facility]) ROS Const: Denies appetite change, fever, chills. [...] palpable bilaterally, normal nipples bilaterally - everted - fatty replaced - dense - well supported- axilla negative, bilateral scarring ABDOMEN: soft, nontender, nondistended, no masses palpable. Umbilical omphalitis BACK: no costovertebral angle tenderness, no obvious scoliosis/kyphosis. 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 Angel Ramsey. Signature Michelle Hui MA Date 08/23/24 . Time 1:51 PM . The documentation recorded by the scribe accurately reflects the service(s) I personally performed and the decisions I made. Signature Sharon RamseyD.O. Date 08/23/24 Time 5:00PM. documented in this encounterBates County Memorial [id number] History of Present illness Narrative* Aashish Laguna MD - 07/21/2024 2:30 PM EST Images from the original note were not [...] (150 mg) by mouth in the morning and1 tablet (150 mg) before bedtime. 60 tablet [...] in PM on an empty stomach. DUARTE; [employer] or [employer] brands only 180 tablet 1 metFORMIN (Glucophage) 1000 MG tablet Take 1 tablet (1,000 mg) by mouth in the morning and 1 tablet(1,000 mg) in the evening. Take with meals. [...] tablet (30 mg) by mouth Daily 30 tablet1 No current facility-administered medications on file prior [...] with stage 3b chronic kidney disease, without long- term current use of insulin (HCC) (CMS/HCC) Chronic [...] the level of urine albumin. Normally, the kidneysfilter albumin, so if the kidney leaks small amounts of albumin into the urine then it is a indicator of chronic kidney disease. Microalbuminuria is an independent indicator of increased cardiovascular risk among individuals andtherefore can be used for risk stratification for [...] Refill: 1 6. Coronary artery disease involving [place] coronary artery of [place] heart without angina pectoris(CMS/HCC) Chronic problem, stable, comanaged with Cardiology. No evidence of angina or anginal equivalents. 7. Pulmonary hypertension (CMS/[facility]) In prescribing a renewal to their current [...] defines the morbid obesity documented in this encounterBates County Memorial [id number] History of Present illness Narrative* Aashish Laguna MD - 05/12/2024 2:30 PM EDT Images from the original note were not [...] for sleep disturbance. Negative for agitation, behavioral problemsand suicidal ideas. The patient is nervous/anxious. She [...] analytical performance characteristics have been determined by [facility] [facility] [place]. It has not been cleared or [...] 0.55 - 1.02 mg/dL Final TBH EGFR-AF NICARAGUAN 03/12/2024 51 (L) >=60 Final TBH EGFR-NON AF NICARAGUAN 03/12/2024 42 (L) >=60 Final BUN CREATININE [...] change in test platforms from the Bravo Hand [employer]amper to the Marie alvarez c503 may have shifted HbA1c results compared to historical results. Based on laboratory validation testing conducted at [facility], the Marie platform relative to the Bravo [...] factors. LDL-C is now calculated using the Grayson-Tanner calculation, which is a validated novel method providing better accuracy than the Friedewald equation in the estimation of LDL-C. Grayson CALL et al. JAMIE. 2013;310(19): 3421-6765 (http://education.Healthcare IT.[employer]/faq/GKZ921) CHOL/HDLC RATIO 02/04/2024 3.9 <5.0 (calc) Final [...] (150 mg) by mouth in the morning and1 tablet (150 mg) before bedtime. 60 tablet [...] tablet (30 mg) by mouth Daily 30 tablet1 levothyroxine (Synthroid, Levoxyl) 50 MCG tablet Take 1 tablet (50 mcg) by mouth in the morning. Take before meals. 90 tablet 1 liothyronine (Cytomel) 5 MCG tablet Take 1 tablet in AM and 1 tablet in PM on an empty stomach. DUARTE; Premium Store or [employer] brands only 180 tablet 1 metFORMIN (Glucophage) 1000 MG tablet Take 1 tablet (1,000 mg) by mouth in the morning and 1 tablet(1,000 mg) in the evening. Take with meals. [...] disorder, in partial remission (HCC) (CMS/HCC) Chronic problem, stable In prescribing a renewal [...] 5 2. Chronic post-traumatic stress disorder (PTSD) ([facility]) Chronic problem, stable This is helping her to sleep better at night and is acting as adjunctive treatment to depression. - QUEtiapine (SEROquel) 25 MG tablet; 1/2 tablet at bedtime Dispense: 15 tablet; Refill: 5 3. Mild cognitive impairment with memory loss Chronic problem that appears just a little bit worse today than I remember. We will need to monitorlongitudinally. 4. Morbid obesity ([facility]) Get reviewed the importance of some diet and a walking program even with her limitations. I did discuss with her that I would really like her to use her breathing treatments twice a day every day andnot just when she thinks she needs them. If she does have an exacerbation she can certainly add Actos. I have asked her to call back in 1 week with an update. 5. BMI 40.0-44.9, adult ([facility]) Defines the morbid obesity 6. Hyperuricemia [...] 4 tablet; Refill: 0 documented in this encounterBates County Memorial [id number] History of Present illness Narrative* Aashish Laguna MD - 05/04/2024 2:30 PM EDT Images from the original note were not [...] a violaceous hue to her skin in thedependent position. Visit Vitals Ht 4' 11.75 Wt 219 lb BMI 43.13 kg/m OB Status Postmenopausal Smoking Status Never BSA 2.05 m I have independently reviewed and interpreted has appropriate, tests that were performed or orderedby another health nurse healthcare manager. These are documented in the electronic health record. These were reviewed with the patient. Telephone on 04/13/2024 Component Date Value Ref Range Status T3, TOTAL 04/13/2024 137 76 - 181 ng/dL Final T3 REVERSE, LC/MS/MS 04/13/2024 17 8 - 25 ng/dL Final Comment: This test was developed and its analytical performance characteristics have been determined by [facility], [place]. It has not been cleared or [...] 0.55 - 1.02 mg/dL Final TBH EGFR-AF NICARAGUAN 03/12/2024 51 (L) >=60 Final TBH EGFR-NON AF NICARAGUAN 03/12/2024 42 (L) >=60 Final BUN CREATININE [...] change in test platforms from the Bravo Hand [employer]amper to the Marie alvarez c503 may have shifted HbA1c results compared to historical results. Based on laboratory validation testing conducted at [facility], the Marie platform relative to the Bravo [...] LDL-C. Grayson CALL et al. JAMIE. 2013;310(19): 5556-3812 (http://education.Healthcare IT.[employer]/faq/IVE188) CHOL/HDLC RATIO 02/04/2024 3.9 <5.0 (calc) Final [...] (150 mg) by mouth in the morning and1 tablet (150 mg) before bedtime. 60 tablet [...] tablet (30 mg) by mouth Daily 30 tablet1 levothyroxine (Synthroid, Levoxyl) 75 MCG tablet Take 1 tablet (75 mcg) by mouth in the morning. Take before meals. 90 tablet 0 liothyronine (Cytomel) 5 MCG tablet Take 1 tablet in AM and 1 tablet in PM on an empty stomach. DUARTE; Premium Store or [employer] brands only 180 tablet 1 metFORMIN (Glucophage) 1000 MG tablet Take 1 tablet (1,000 mg) by mouth in the morning and 1 tablet(1,000 mg) in the evening. Take with meals. [...] tablet followed by 1 tablet every 2 hoursuntil the gouty pain is relieved, gastrointestinal symptoms develop, or the maximum dose is reached. Hold metformin while taking 4 tablet 0 No current facility-administered medications on file prior to visit. 1. Acquired hypothyroidism (CMS/[facility]) In prescribing an adjustment to their current [...] tablet (50 mcg) by mouth in the morning.Take before meals. Dispense: 90 tablet; Refill: 1 [...] the patient's current prescriptions and discussed the possibilitiesof medication renewals, adjustments, new medication start, or [...] I discussed with the patient or their premium representative, their fatigue issues. We discussed how this is either not improved or not inadequately addressed. We discussed how this is almost always a multifactorial problem. We discussed that the patient willalmost certainly need to continue to make lifestyle [...] condition from multiple components of her illnesses. Encouragedher to avoid sugar in the simple carbohydrates. [...] nebulizer. We did make this also a oool-[id number] visit to get that part of the coverage out of the way while she is here. I certify that I had a yyop-[id number]-[id number] encounter with this patient at [facility] office visit. Due to thismedical condition the patient requires DME. I certify that based on my findings The DME ordered is medically necessary for this patient. This has been discussed with the patient and/or their premium representative and mutually agreed upon. 7. Pulmonary [...] and blood sugar to goal, staying well hydrated,and aerobic exercises as tolerated. Continue to monitor [...] wondering if the pain she is having inthe lower extremities not all related to the edema in above diagnosis. A wondering if she is stressed or strained her foot while doing steps or some other activity that are bothersome for her. I alsowith her stage IIIB chronic kidney disease do not want to increase the diuretics unless we have to.She notes she has a response from the [...] and help venous insufficiency. documented in this encounterBates County Memorial HospitalJzejtmzriv98-23-2769 Telephone encounter Note* Telephone Encounter - Aashish Laguna MD - 04/28/2024 4:29 PM EDT Called [facility]ora. Discussed to hold tonight's metformin. Discussed how to take. Stay hydrated. Call tomorrow if not better. [facility] [id number] Miscellaneous Notes* Telephone Encounter - Aashish Laguna MD - 04/28/2024 4:29 PM EDT Called [facility]. Discussed to hold tonight's metformin. Discussed how to take. Stay hydrated. Call tomorrow if not better. * Telephone Encounter - Mehnaz Reeves - 04/28/2024 10:50 AM EDT [facility]ora called to move her appointment she has for tomorrow to next week. She states she is having a gout flare and can not get down her stairs to get to her car. She is asking if Dr. Laguna could send something in for her for the gout so she can have documented in this encounterBates County Memorial [id number] Telephone encounter Note* Telephone Encounter - Mehnaz Reeves - 04/28/2024 10:50 AM EDT Lora called to move her appointment she has for tomorrow to next week. She states she is having a gout flare and can not get down her stairs to get to her car. She is asking if Dr. Laguna could send something in for her for the gout so she can have [facility] [id number] History of Present illness Narrative* Aashish Laguna MD - 10/15/2023 2:00 PM EST Patient ID: Patricia Blake is a 73 y.o. female who presents for: Pt here today to review his/hers thyroid labs and any medication changes needed. Fatigue: Present, worsened, hasn't been sleeping well, brother was killed in an accident in [facility] Weight Gain: Absent Inability to lose [...] analytical performance characteristics have been determined by [facility] [place]. It has not been cleared or [...] diagnosis of diabetes for children. Visit Vitals 4' 11.75 Wt 212 lb BMI 41.75 [...] in PM on an empty stomach. DUARTE; Premium Store or [employer] brands only metFORMIN (GLUCOPHAGE) 1,000 mg, Oral, [...] call if any other questions arise or ifany problems occur with the renewal of their medication. (Utilizing the original guidelines or the 2020 new office/outpatient code guidelines for selecting the level of E/M service, In both sets of guidelines, prescription drug management appearsin the moderate medical decision making (MDM) row. Neither the original guidelines nor the new guidelines state that a new prescription or change is needed in order to credit prescription drug management) Acquired hypothyroidism ([facility]) - levothyroxine (Synthroid, Levoxyl) 75 MCG tablet; Take 1 tablet (75 mcg) by mouth in the morning.Take before meals. This is a complex chronic [...] the patient's current prescriptions and discussed the possibilitiesof medication renewals, adjustments, new medication start, or [...] call if any other questions arise or ifany problems occur with the adjustment in their medication. Chronic fatigue syndrome Chronic problem, unstable, complex in nature with moderate decision making. I discussed with the patient and/or their premium representative, their fatigue issues. We discussed how this is either not improved or not adequatly adressed. We discussed how this is almost always a multifactorial problem. We discussed that the patient willalmost certainly need to continue to make lifestyle [...] related to the above. documented in this encounterBates [facility] [id number] NotePROCEDURE: XR FOOT RT MIN 3 VIEWS HISTORY: Joint swelling ; acute dorsal right foot pain; no known injury COMPARISON: None. FINDINGS: BONES:Bunion formation. Mild degenerative changes the first metatarsophalangeal joint and joints and midfoot. No fracture or dislocation. SOFT TISSUES:Mild dorsal soft tissue swelling. EFFUSION:None visible. OTHER: Negative. IMPRESSION: 1. Mild degenerative changes and moderate bunion formation. Electronically authenticated by: KEVIN STEWART Date: 2022-10-15 13:30[facility]01-10-2023 History of Present illness Narrative* Brittany Richards RN - 09/17/2022 10:17 AM EST 1017 - Lexiscan started. Pt tolerating well so far. 1020 - Continues to tolerate procedure with no complaints. 1022 - Pt tolerated procedure without complaints. Provided with snack at this time. [facility] [employer] Work Phone: [phone]) 299-453506-22-2022 Hospital Discharge instructions Patient Education 02/27/2022 13:43:09 [...] You may also have very sensitive muscles thatmake your bladder squeeze too soon. These symptoms [...] fried and sweet foods. General instructions Take vopz-yts-bmotiia and prescription medicines only as told by your health care provider. If you were prescribed an antibiotic medicine, take it as told by your health care provider. Do notstop taking the antibiotic even if you start [...] 06/21/2010 Document Revised: 12/16/2019 Document Reviewed: 09/10/2018 Leo Patient Education 2020 [employer]. Follow Up Care 02/06/2022 15:12:13 With:FRED LEW PA-C, URL Address: [address] [place] [address] When: Unknown [facility] evaluation + Plan note No data available for this section [facility] evaluation + Plan note Future Appointments Appointment Date:07/05/2025 01:00:00 PM Scheduled Provider: Location:[facility] Appointment Type:Urology CALL PAT FT Appointment Date:07/07/2025 09:30:00 AM Scheduled Provider: Location:[facility] Appointment Type:Urology FT [facility] Evaluation note* Diagnosis Atrial fibrillation, new onset (HCC) Atrial fibrillation documented in this encounter [employer] Phone: evaluation note* Diagnosis Atrial fibrillation, new onset (HCC) Atrial fibrillation Essential hypertension Unspecified essential hypertension Anemia, unspecified type documented in this encounter [employer] Phone: evaluation note* Diagnosis Atrial fibrillation, new onset (HCC) Atrial fibrillation documented in this encounter [employer] Phone: evaluation note* Diagnosis Atrial fibrillation, new onset (HCC) Atrial fibrillation documented in this encounter [employer] Phone: evaluation note* Diagnosis Abnormal EKG Nonspecific abnormal electrocardiogram (ECG) (EKG) Chest pain, unspecified type documented in this encounter [employer] Phone: evaluation noteNo assessment information available [facility] Work Phone: evaluation note* Diagnosis Mild cognitive impairment with memory loss- Primary Mild cognitive impairment, so stated ESS (euthyroid sick syndrome) Euthyroid sick syndrome Acquired hypothyroidism (CMS/HCC) Unspecified hypothyroidism Chronic fatigue syndrome Recurrent major depressive disorder, in partial remission (HCC) (CMS/HCC) Chronic post-traumatic stress disorder (PTSD) ([facility]/HCC) [facility]* Diagnosis Essential hypertension Unspecified essential hypertension Stage 3b chronic kidney disease (HCC) ([facility]) Type 2 diabetes mellitus with stage 3b chronic kidney disease, without long-term current use of insulin (HCC) ([facility]) Microalbuminuric diabetic nephropathy ([facility]) Hyperlipidemia, mixed ([facility]) Mixed hyperlipidemia Coronary artery disease involving [place] coronary artery of [place] heart without angina pectoris ([facility]) Pulmonary hypertension ([facility]) Other chronic pulmonary heart diseases Morbid obesity ([facility]) Morbid obesity BMI 40.0-44.9, adult ([facility]) [facility]* Diagnosis Recurrent major depressive disorder, in partial remission (HCC) ([facility]) Chronic post-traumatic stress disorder (PTSD) ([facility]) Mild cognitive impairment with memory loss Mild cognitive impairment, so stated Morbid obesity ([facility]) Morbid obesity BMI 40.0-44.9, adult ([facility]) Hyperuricemia Other abnormal blood chemistry Acute [...] encounter [facility]* Diagnosis Acquired hypothyroidism ([facility])- Primary Unspecified hypothyroidism ESS (euthyroid sick syndrome) Euthyroid sick syndrome Chronic fatigue Other malaise and fatigue Morbid obesity ([facility]) Morbid obesity BMI 40.0-44.9, adult ([facility]) Dyspnea on exertion Other dyspnea and respiratory abnormality Pulmonary hypertension ([facility]) Other chronic pulmonary heart diseases Paroxysmal atrial fibrillation ([facility]) Atrial fibrillation Stage 3b chronic kidney disease (HCC) ([facility]) Iron deficiency anemia, unspecified iron deficiency anemia type Chronic venous insufficiency of lower extremity Recurrent major depressive disorder, in partial remission (HCC) ([facility]) Chronic post-traumatic stress disorder (PTSD) ([facility]) Mild cognitive impairment with memory loss Mild cognitive impairment, so stated Morbid obesity ([facility]) Morbid obesity BMI 40.0-44.9, adult ([facility]) documented [facility]* Diagnosis Acquired hypothyroidism ([facility]/HCC)- Primary Unspecified hypothyroidism Chronic fatigue Other malaise and fatigue ESS (euthyroid sick syndrome) Euthyroid sick syndrome Morbid obesity ([facility]/HCC) Morbid obesity BMI 40.0-44.9, adult ([facility]) Encounter for Medicare annual wellness exam Advance directive in chart Encounter for screening for other disorder Screening for alcohol problem Screening for alcoholism Morbid obesity ([facility]) Morbid obesity BMI 40.0-44.9, adult ([facility]) Type 2 diabetes mellitus with stage 3a chronic kidney disease, without long-term current use of insulin (HCC) ([facility]) Stage 3b chronic kidney disease (HCC) ([facility]) Essential hypertension Unspecified essential hypertension Microalbuminuric diabetic nephropathy ([facility]) Hyperlipidemia, mixed ([facility]) Mixed hyperlipidemia documented in this encounter [facility]* Diagnosis Hyperuricemia- Primary Other abnormal blood chemistry Atrial fibrillation with rapid ventricular response ([facility]) Interstitial pulmonary disease ([facility]) Acute idiopathic gout of right ankle Acute idiopathic gout involving toe of right foot Chronic post-traumatic stress disorder (PTSD) ([facility]) Encounter for examination following treatment at hospital documented in this encounter [facility]* Diagnosis Essential hypertension- Primary Unspecified essential hypertension Hypertensive nephropathy Unspecified hypertensive kidney disease with chronic kidney disease stage I through stage IV, or unspecified Stage 3a chronic kidney disease ([facility]) Type 2 diabetes mellitus with stage 3a chronic kidney disease, without long-term current use of insulin ([facility]) Hyperlipidemia, mixed Mixed hyperlipidemia Microalbuminuric diabetic nephropathy (HCC) documented in this encounter [facility]* Diagnosis Acquired hypothyroidism- Primary Unspecified hypothyroidism ESS (euthyroid sick syndrome) Euthyroid sick syndrome Chronic fatigue Other malaise and fatigue Recurrent major depressive disorder, in partial remission Chronic post-traumatic stress disorder (PTSD) Hyperuricemia Other abnormal blood chemistry Side effect of medication documented in this encounter [facility]* Diagnosis Bilateral chronic knee pain- Primary Arthritis of knee, right Arthritis of knee, left Morbid obesity ([facility]) Morbid obesity BMI 40.0-44.9, adult ([facility]) documented in this encounter [facility] note No data available for this section [facility] Damaso Summary Purpose Family History No Family History Records FoundNo Family History Records FoundNo Family History Records FoundNo Family History Records FoundNo Family History Records FoundNo Family History Records Found No data available for this section No Family History Records FoundNo Family History Records FoundNo Family History Records FoundNo Family History Records Found Advance Directives No Advanced Directives Records FoundDocuments on File TypeDate RecordedPatient RepresentativeExplanationAdvance Directives and Living Will05/19/2019 6:06 AMCode StatusDate ActivatedDate InactivatedCommentsFull Code 05/19/2019 7:44 AMTypeDate RecordedPatient RepresentativeExplanationAdvance Directives and Living WillPower of AttorneyTypeDate RecordedPatient RepresentativeExplanationAdvance Directives and Living WillPower of AttorneyType Date RecordedPatient RepresentativeExplanationACP-Advance DirectiveACP-Power of AttorneyTypeDate RecordedPatient RepresentativeExplanationACP-Advance Directive ACP-Power of Health Information Internship Advance Directive Response Recorded Date/ Time Advance Directives No July 9:50am Advance Directive Response Recorded Date/ Time Advance Directives No July 10:50am TypeDate RecordedPatient RepresentativeExplanationAdvance Directives and Living Will DNRAdvance Directives and Living Will04/19/2019 [id number]_Shelpr Will Discharge Instructions * Instructions* Candace Thomas RN [...] documented in this encounter Reason for Referral StatusReasonSpecialtyDiagnoses / ProceduresReferred By ContactReferred To ContactOpenCardiology Diagnoses SOB (shortness of breath) Hypertension, unspecified type Diabetes mellitus without complication (HCC) Procedures EKG 12 Lead Pacheco Galindo MD [address] [place] [address] StatusReasonSpecialtyDiagnoses / ProceduresReferred By ContactReferred To ContactOpenCardiology Diagnoses Atrial fibrillation, new onset (HCC) Procedures EKG 12 Lead Pacheco Galindo MD [address] [place] [address] SpecialtyDiagnoses / ProceduresReferred By ContactReferred To ContactCardiology Diagnoses Atrial fibrillation, new onset (HCC) Procedures EKG 12 Lead Pacheco Galindo MD [address] [place] [address] Referral IDStatusReasonStart DateExpiration DateVisits RequestedVisits [id number] / ProceduresReferred By ContactReferred To ContactCardiology Diagnoses Abnormal EKG Chest pain, unspecified type Procedures Stress test, Pacheco Santo MD [address] [place] [address] Referral IDStatusReasonStart DateExpiration DateVisits RequestedVisits [id number]/10/20231/ Assessments Diagnosis SOB (shortness of breath) Shortness [...] section and content) DATE CREATED AUTHOR 06/09/2019 [facility] DATE CREATED AUTHOR AUTHOR'S ORGANIZ ATION 11/17/2021 [facility] Triage Registered Nurse DATE CREATED AUTHOR AUTHOR'S ORGANIZ ATION 09/20/2022 [facility] DATE CREATED AUTHOR AUTHOR'S ORGANIZ ATION 12/13/2022 [facility] DATE CREATED AUTHOR AUTHOR'S ORGANIZ ATION 11/30/2024 [facility] DATE CREATED AUTHOR AUTHOR'S ORGANIZ ATION 06/18/2025 [facility] DATE CREATED AUTHOR AUTHOR'S ORGANIZ ATION 06/23/2025 [facility] DATE CREATED AUTHOR AUTHOR'S ORGANIZ ATION 06/26/2025 [facility] DATE CREATED AUTHOR AUTHOR'S ORGANIZ ATION 07/02/2025 [facility] EPIC DATE CREATED AUTHOR AUTHOR'S ORGANIZ ATION 07/08/2025 [facility] Niru Galindo MD - 05/18/2019 7:40 AM EDT H&P Notes (unrecognized sect ion and content) Niru Galindo M.D. [facility] [place] [phone] May 17, 2019 Aashish Laguna MD [address] [place] [id number] RE: Patricia Blake : [address] [...] the LAD with an unremarkable right coronary arteryand circumflex, EF of 60%. I did an angioplasty of the LAD placing 2.75 x 14 mm drug-eluting Xiencestent with a good end result. She developed more shortness of breath over the last 4 to 5 months. She had shortness of breath when attempting to walk to the car. She also began developing some chest pain consistent with angina. Isaw her on 04/12/2019. We ordered a Lexiscan [...] FAMILY HISTORY: Mother at 73 of an [place]. Father of [place] at 76. Three brothers at 64, 55,and 76. One sister had an [place] at 79. SOCIAL HISTORY: She is 69 years old. Never . No children. Lives in [place]. 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 She has not been exercising because of [...] edema. Skin was warm and dry. No calftenderness. Nail beds pink. Good cap refill. PULSES: [...] the ostium of the LAD with an unremarkableright coronary artery and circumflex, EF of 60%. 4. Angioplasty and stenting of the LAD on 12/05/2015, placing a 2.75 x 14 mm drug-eluting Xience stent. 5. Abnormal Lexiscan Cardiolite stress test in April at [facility] showing anterior wall ischemia or infarct, intermediate [...] discussed cardiac catheterization and the need to repeatthe catheterization to see if she has redeveloped her coronary artery disease and she has redeveloped her angina. She has agreed to proceed with this. Thank you very much for allowing me the privilege of seeing Ms. Blake. If you have any questions on my thoughts, please do not hesitate to contact me. Sincerely, NIRU GALINDO GV/[id number]_T Doc#: [id number] documented in this encounter Reason for Visit (unrecogniz ed section and content) StatusReasonSpecialtyDiagnoses / ProceduresReferred By ContactReferred To ContactClosedCardiology Diagnoses Unspecified atrial fibrillation Procedures [place] CARDIOVERSION ELECTIVE ARRHYTHMIA EXTERNAL Pacheco Galindo MD [address] [place] [address] [facility] [address] [place] [address] SpecialtyDiagnoses / ProceduresReferred By ContactReferred To Contact Diagnoses Atrial fibrillation, new onset (HCC) SOB (shortness of breath) I48.91 (ICD-10-CM) - Atrial fibrillation, new onset (HCC) Procedures Holter Monitor 48 Hour [place] CARDIOVERSION ELECTIVE ARRHYTHMIA EXTERNAL [id number] - [place] CARDIOVERSION ELECTIVE ARRHYTHMIA EXTERNAL Pacheco Galindo MD [address] [place] [address] Referral IDStatusReasonStart DateExpiration DateVisits RequestedVisits [id number]/25/20218/[id number] / Procedures Referred By ContactReferred To ContactCardiology Diagnoses Abnormal EKG Chest pain, unspecified type Procedures Stress test, lexiscan Pacheco Galindo MD [address] [place] [address] Referral IDStatusReasonStart DateExpiration DateVisits RequestedVisits [id number]/10/20231/[id number]funfXdojnt CommentsHypertensionHyperlipidemiaDiabetesReasonCommentsAnxietySleeping Problem ReasonCommentsGynecologic ExamMedicare yearly.LMP: 2004HRT: NoneLast pap 08-14-22 neg.[place] [facility] [place]Den[place] breast, urinary, or bowel concerns. ReasonCommentsFollow-upReasonCommentsHypothyroidismAnxietyReasonCommentsKnee Pain Care Teams (unrecognized sec tion and content) Team MemberRelationshipSpecialtyStart DateEnd Date Aashish Laguna MD [facility] - General11/14/16Team MemberRelationshipSpecialtyStart DateEnd Date Aashish Laguna MD PCP - General11/14/16Team MemberRelationshipSpecialtyStart DateEnd Date Aashish Laguna MD PCP - General11/14/16Team MemberRelationshipSpecialtyStart DateEnd Date Aashish Laguna MD PCP - General11/14/16 Team Status: Inactive Member Role Status Dates Aashish Laguna MD Primary Care Provider, Attending Provider Active Team Status: Active Member Role Status Dates Aashish Laguna MD Primary Care Provider Active Team Status: Inactive Member Role Status Dates Aashish Laguna MD Primary Care Provider Active Sanjuana Braxton ProviderActive Team Status: Inactive Member Role Status Dates Aashish Laguna MD Primary Care Provider Active Start: October 02, 2023 End: October 02, 2023Sanjuana Cohen ProviderActiveStart: October 02, 2023 End: October 02, 2023Team MemberRelationshipSpecialtyStart DateEnd Date Aashish Laguna MD [address] [place] [address] PCP - [facility]01/30/23 Aashish Laguna MD [address] [place] [address] PCP - GeneralFamily [facility]03/20/23 Niru Galindo MD [address] [place] [address] Referring UftgaqwsuLpnmjiucvt82/13/23Team MemberRelationshipSpecialtyStart Date End Date Aashish Laguna MD [address] [place] [address] (Fax) PCP - [facility]01/30/23 Aashish Laguna MD [address] [place] [address] PCP - GeneralFamily Medicine03/20/23 Niru Galindo MD [address] [place] [phone] Referring PmiftigexMtbcbkrrjd59/13/23Team MemberRelationshipSpecialtyStart Date End Date Aashish Laguna MD [address] [place] [address] (Fax) PCP - [facility]01/30/23 Aashish Laguna MD [address] [place] [address] (Fax) [facility] - [facility]/20/23 Niru Galindo MD [address] [place] [phone] Referring SrywwotpzPpxienhaqz83/13/23 Niru Oseguera MD [address] [place] [address] Referring PhysicianUrology12/02/23Team MemberRelationshipSpecialtyStart DateEnd Date Aashish Laguna MD [address] [place] [address] (Fax) PCP - [facility]01/30/23 Aashish Laguna MD [address] [facility] [address] [place] [address] (Fax) PCP - GeneralFamily Medicine03/20/23 Niru Galindo MD [address] [place] [address] Referring FdxgyqfwiMreefvpsdh58/13/23 Niru Oseguera MD [address] [place] [address] Referring PhysicianUrology12/02/23Team MemberRelationshipSpecialtyStart DateEnd Aashish Laguna MD [address] [place] [address] (Fax) PCP - [facility]01/30/23 Aashish Laguna MD [address] [place] [address] PCP - GeneralFamily Medicine03/20/23 Niru Galindo MD [address] [place] [address] Referring JhcxtmbefZuhndqutxt29/13/23 Niru Oseguera MD [address] [place] [address] Referring PhysicianUrology12/02/23Team MemberRelationshipSpecialtyStart DateEnd Date Aashish Laguna MD [address] [facility] [address] [place] [address] (Fax) PCP - [facility]01/30/23 Aashish Laguna MD [address] [facility] [address] [place] [address] (Fax) PCP - GeneralFamily Medicine03/20/23 Niru Galindo MD [address] [place] [address] Referring IkrkyvooiCoktskgaap90/13/23 Niru Oseguera MD [address] [place] [address] Referring PhysicianUrology12/02/23Team MemberRelationshipSpecialtyStart DateEnd Date Aashish Laguna MD [address] [place] [phone] (Fax) PCP - [facility]01/30/23 Aashish Laguna MD [address] [place] [phone] [facility] - [facility]/23 Niru Galindo MD [address] [place] [address] Referring CsoolieunBlupnozebt70/13/23 Niru Oseguera MD [address] [place] [address] Referring PhysicianUrology12/02/23Team MemberRelationshipSpecialtyStart DateEnd Aashish Laguna MD [address] [place] [address] (Fax) PCP - [facility]01/30/23 Aashish Laguna MD [address] [place] [phone] [facility] - [facility]03/20/23 Niru Galindo MD [address] [place] [phone] Referring NnpsimivaAycpqpfnaf11/13/23 Niru Oseguera MD [address] [place] [address] Referring PhysicianUrology12/02/23Team MemberRelationshipSpecialtyStart DateEnd Date Aashish Laguna MD [address] [place] [phone] (Fax) PCP - [facility]01/30/23 Aashish Laguna MD [address] [place] [address] PCP - [facility]03/20/23 Niru Galindo MD [address] [place] [phone] Referring QurqznwpnKpatxpofrb12/13/23 Niru Oseguera MD [address] [place] [address] Referring PhysicianUrology12/02/23Team MemberRelationshipSpecialtyStart DateEnd Date Aashish Laguna MD [address] [place] [address] (Fax) PCP - [facility]01/30/23 Aashish Laguna MD [address] [place] [address] PCP - GeneralFamily Medicine03/20/23 Niru Galindo MD [address] [place] [address] Referring McytdfbwkJlhjbovkjr73/13/23 Niru Oseguera MD [address] [place] [address] Referring PhysicianUrology12/02/23Team MemberRelationshipSpecialtyStart DateEnd Date Aashish Laguna MD [address] [place] [address] (Fax) PCP - [facility]01/30/23 Aashish Laguna MD [address] [address] [place] [address] (Fax) PCP - Generalmily [facility]03/20/23 Niru Galindo MD [address] [place] [address] Referring QtfspnuahShknowgnvf77/13/23 Niru Oseguera MD [address] [place] [address] Referring PhysicianUrology12/02/23Team MemberRelationshipSpecialtyStart DateEnd Date Aashish Laguna MD [address] [place] [address] (Fax) PCP - [facility]01/30/23 Aashish Laguna MD [address] [place] [address] (Fax) PCP - [facility]03/20/23 Niru Galindo MD [address] [place] [address] Referring DqqcqxxzeHvidmzwcgd53/13/23 Niru Oseguera MD [address] [place] [address] Referring PhysicianUrology12/02/23 Team Status: Inactive Member Role Status Dates Aashish Laguna MD Primary Care Provider Active Start: November 25, 2024 End: November 25, 2024Angel Ramsey , Michelleending ProviderActiveStart: November 25, 2024 End: November 25, 2024 Team Status: Inactive Member Role Status Dates Abdoulaye Brothers MD Attending Provider Active St art: November 28, 2024 End: November 28, 2024Team MemberRelationshipSpecialtyStart DateEnd Date Aashihs Laguna MD [address] [facility] [address] [place] [address] (Fax) PCP - [facility]01/30/23 Niru Galindo MD [address] [place], [place] [id number] Referring OwwnnqoleFzspqxfpsb36/13/23 Niru Oseguera MD [address] [place] [address] Referring PhysicianUrology12/02/23Team MemberRelationshipSpecialtyStart DateEnd Date Aashish Laguna MD [address] [address] (Fax) PCP - [facility]01/30/23 Niru Galindo MD [address] [place] [address] Referring NywaiuvxpZmbvjzymzt17/13/23 Niru Oseguera MD [address] [place] [address] Referring PhysicianUrology12/02/23Team MemberRelationshipSpecialtyStart DateEnd Aashish Laguna MD [address] [address] (Fax) PCP - [facility]01/30/23 Aashish Laguna MD [address] [address] (Fax) PCP - GeneralFamily Medicine01/11/25 Niru Galindo MD [address] [place] [address] Referring VrigzzqbqTpkrpgbjna47/13/23 Niru Oseguera MD [address] [place] [address] Referring PhysicianUrology12/02/23Team MemberRelationshipSpecialtyStart DateEnd Date Aashish Laguna MD [address] [address] (Fax) PCP - [facility]01/30/23 Aashish Laguna MD [address] [address] (Fax) PCP - GeneralFamily Medicine01/11/25 Niru Galindo MD [address] [place] [address] Referring QkwqmocuhSbqqubbkax15/13/23 Niru Oseguera MD [address] [place] [place] [address] Referring PhysicianUrology12/02/23Team MemberRelationshipSpecialtyStart DateEnd Aashish Laguna MD [address] [address] (Fax) PCP - [facility]01/30/23 Aashish Laguna MD [address] [address] (Fax) [facility] Niru Galindo MD [address] [place] [address] Referring FpogffipkMrahvvwnlg35/13/23 Niru Oseguera MD [address] [place] [address] Referring PhysicianUrology12/02/23Team MemberRelationshipSpecialtyStart DateEnd Date Aashish Laguna MD [address] [address] (Fax) PCP - [facility]01/30/23 Aashish Laguna MD [address] [facility] 100 [place] [address] (Fax) PCP - GeneralFamily Medicine01/11/25 Niru Galindo MD [address] [place] [phone] Referring XktgfrfueFrjmkjcfej06/13/23 Niru Oseguera MD [address] [place] [place] [address] Referring PhysicianUrology12/02/23Team MemberRelationshipSpecialtyStart DateEnd Aashish Laguna MD 112 [facility] 100 [place] [address] (Fax) PCP - [facility]01/30/23 Aashish Laguna MD [address] [address] (Fax) [facility]01/11/25 Niru Galindo MD [address] [place] [phone] Referring GcylknatsLwygbxyfyz79/13/23 Niru Oseguera MD [address] [place] [address] Referring PhysicianUrology12/02/23Team MemberRelationshipSpecialtyStart DateEnd Date Aashish Laguna MD [address] [place] [address] (Fax) PCP - [facility]01/30/23 Aashish Laguna MD [address] [address] (Fax) PCP - Generalmily Medicine01/11/25 Niru Galindo MD [address] [place] [address] Referring JkiznnhiwQerzqvupfr26/13/23 Niru Oseguera MD [address] [place] [address] Referring PhysicianUrology12/02/23Team MemberRelationshipSpecialtyStart DateEnd Date Aashish Laguna MD [address] [address] (Fax) PCP - [facility]01/30/23 Aashish Laguna MD [address] [address] (Fax) [facility] Niru Galindo MD [address] [place] [address] Referring LlanpstasUqjnnltwph08/13/23 Niru Oseguera MD [address] [place] [address] Referring PhysicianUrology12/02/23 Carol Horne, REHABILITATION THERAPY TECHNICIAN [address] [place] [address] Social WorkerWaltham Hospital MedicineTeam MemberRelationshipSpecialtyStart DateEnd Date Aashish Laguna MD 112 [facility] 100 [place] [address] PCP - [facility]01/30/23 Aashish Laguna MD [address] [facility] [address] [place] [address] PCP - [facility]01/11/25 Niru Galindo MD [address] [place], [place] [address] Referring AhlxexaqoXgthczbvyn58/13/23 Niru Oseguera MD [address] [facility] [place] [address] Referring PhysicianUrology12/02/23 Carol Horne, REHABILITATION THERAPY TECHNICIAN [address] [place] [address] Social WorkerHabersham Medical Center Goals (unrecognized section and content) Goals may [...] BE BASED ON THE PRIMARY CLINICAL RECORDS. [facility]. provides no warranty or guarantee of the accuracy or completeness of information in this document.
--- OUTSIDE RECORDS SUMMARY | 2025-07-31 18:13 | XMS_ITS | Encounter Summary ---
Demographics Address [address] [place] [address] Mobile Phone Home Phone Preferred Language en Marital Status Unmarried Oriental Orthodox Affiliation Unknown Race White Ethnic Group Not or Lati no Author Organization [facility] Address [address] [place] [address] Care Team Providers Care Purchaser Name Role Phone Aashish Pérez MD Unavailable [phone] Saroj Carter MD Unavailable [phone] Saroj Oseguera MD Unavailable [phone] Aashish Pérez MD Primary Care Provider [phone] Encounter Details DateTypeDepartmentCare Team (Latest Contact Info)Frdivzdwcxh57/18/2025amboo flowsheet [facility] Family Medicine [address] [facility] 100 [place] [address] Aashish Péerz MD 112 [facility] 100 [place] [address] Social History Tobacco UseTypesPacks/DayYears UsedDateSmoking Tobacco: NeverSmokeless [...] on one occasion?Never08/23/2024HQ-2AnswerDate Recorded Patient Health Questionnaire-2 Wflbf491EducationAnswerDate RecordedWhat is the highest level of school you have completed or the highest degree you have received?High school dxkcesmv45/13/2023CommentsNoSex and Gender InformationValueDate RecordedSex Assigned at BirthNot on fileLegal SexFemale 11/20/2022 6:39 PM EDTGender IdentityNot on fileSexual OrientationNot on file documented as of this encounter Plan of Treatment DateTypeDepartmentCare Team (Latest Contact Info)Hcitmjsjtbv35/17/2025 1:45 PM ESTOffice Visit [facility] [address] [place] [address] Angel Ramsey DO [address] [place] [address] 10/20/2025 2:00 PM ESTOffice Visit [facility] Family Medicine [address] [place] [address] Aashish Pérez MD [address] [place] [address] (Fax) 12/22/2025 2:00 PM EDTOffice Visit [facility] Family Medicine [address] [place] [address] Aashish Pérez MD [address] [place] [address] (Fax) documented as of this encounter Visit Diagnoses Not on filedocumented in this encounter Additional Health Concerns AssessmentNoted TimePHQ-9 Depression Total Score: 303 1:00 PM EST documented as of this encounter Care Teams Team MemberRelationshipSpecialtyStart DateEnd Date Aashish Pérez MD [address] [place] [address] (Fax) PCP - [facility]01/30/23 Aashish Pérez MD [address] [place] [address] (Fax) PCP - GeneralFamily Medicine01/11/25 Saroj Carter MD [address] [place] [address] Referring WmiucstdrXujtoyundj22/13/23 Saroj Oseguera MD [address] [place] [address] Referring PhysicianUrology12/02/23documented as of this encounter
--- OUTSIDE RECORDS SUMMARY | 2025-07-31 18:13 | XMS_ITS | Continuity of Care Document ---
Author Organization [employer] [facility] Address [address] [place] [address] Insurance Providers Payer Plan Claims Address Claims Phone Policy Number Group Number Relation Employer Guarantor Name Guarantor Guarantor Address Guarantor Phone [id number], [place] [address]Gcjaidbd [id number] [place], [place] [address]FYDM Health [id number] [address] Problems Condition ICD9 code ICD10 code SNOMED code Start Date End Date S tatus Paroxysmal atrial fibrillation I48.0035ActiveMorbid (severe) obesity due to excess irmjcjqvO28.01 5ActiveIdiopathic gout, right ankle and footM10.707225ActiveType 2 diabetes mellitus with diabetic sethysgmhaoL58.2105ActiveType 2 diabetes mellitus with diabetic chronic kidney nxqecgyW92.2205Active Myalgic encephalomyelitis/chronic fatigue xkakgztkD98.3205Active Hypothyroidism, beyumlosjctN78.905ActiveVitamin D deficiency, cvyixziuiafZ72.905ActiveAnemia, pwbqsfwrlsfL60.905ActiveMajor depressive disorder, recurrent, in partial paiuphivsU93.4105ActivePost- traumatic stress disorder, eyzawyiT35.1205ActiveInterstitial pulmonary disease, pxvjctfwptzS47.905ActiveMixed yddpqigvgvtrskO60. ActiveUnspecified hearing loss, unspecified earH91.9005ActiveEssential (primary) qzsuojetnlvfV6743/5ActiveAtherosclerotic heart disease of [place] coronary artery without angina siasmaupN02.1005ActivePulmonary hypertension, upqtktfngphV60.2251GwfevyQpaereeowuffM57.7035Active Chronic diastolic (congestive) heart jilmwluH83.3205ActiveUrinary tract infection, site not culebwbdkJ27.0035ActiveVenous insufficiency (chronic) (peripheral)I87.5ActiveCalculus of gallbladder and bile duct without cholecystitis with ilcgkxqpfthX18.7105ActiveDermatitis, vjpvczsgapeL88.9 5ActiveUnilateral primary osteoarthritis, left kneeM17.12011/30/2024 ActiveOther disorders of lungJ98.4037421IjkrogSakeoxxouneaudL50.8211/30/2024 ActiveChronic kidney disease, stage 3aN18.3105ActiveDisorder of kidney and ureter, waozttmtdffW11.905ActiveOther intervertebral disc degeneration, thoracic pmgimaJ30.3405ActiveDiffuse cystic mastopathy of unspecified qgxctcN60.1905ActiveOveractive mhnkcknO73.815Active Incomplete uterovaginal rzwvnnepD48.5ActiveSubacute and chronic pebfxuaoY44.3035ActivePostmenopausal atrophic pbwcvgbbsU35. ActiveCardiac murmur, zhzarosudavW56.1035ActiveDyspnea, hvprbiraseeA91.00 5ActiveOmphalitis without cuyjpyizuhC34.905ActiveRetention of urine, dtrxbzpypowY58.905ActiveChest pain, vjgkotfsqzbQ12.9011/30/2024 ActiveMuscle weakness (generalized)M62.815ActiveDifficulty in walking, not elsewhere cfxjzfrpuzY48.5ActiveDysphagia, oropharyngeal phase R13.12035ActiveCognitive communication svbzpwqW72.558005Active Nutritional deficiency, kqupnzccapxF07.9035Active Results Test Result Date/Time Value / Unit Interp. Refere nce Range Tuberculosis reaction wheal[ 47488-0] Tuberculosis reaction wheal [64713-0] 12/11/2024 04:00 PM 0 mm NEG Tuberculosis reaction wheal[10464-6]?Tuberculosis reaction wheal [26909-7]12/11/2024 04:00 PMSee noteTB testTuberculosis reaction wheal[01043-2]?Tuberculosis reaction wheal [61213-6]12/01/2024 04:00 PM 0 mmNEG Allergies, adverse reactions, alerts Substance Reaction Date Status Type No allergies have been recorded Non DrugPenicillins (PCN)Rash12/01/2024Non DrugSulfonamides (Sulfa)Rash 12/01/2024Non Drug Immunizations Vaccine Route Date Status COVID-19 Vaccine Unassigned Route of Administration Completed COVID-19 Vaccine Unassigned Route of Administration Completed COVID-19 Vaccine Unassigned Route of Administration Completed COVID-19 Vaccine Unassigned Route of Administration Completed COVID-19 Vaccine Unassigned Route of Administration Completed COVID-19 Vaccine Unassigned Route of Administration Completed Pneumococcal Vaccine Unassigned Route of Administratio n 08/11/2024 Completed Pneumococcal Vaccine Unassigned Route of Administratio n 04/01/2018 Completed Pneumococcal Vaccine Unassigned Route of Adminis tration CompletedZoster VaccineUnassigned Route of Yahasuvserbtfx47/14/2020Completed Zoster VaccineUnassigned Route of Yozkceztmbwhep97/31/2020Completed Medications Medication Instructions Route Dosage Frequency Start Date Stop Date Indications Status albuterol sulfate 90 mcg/actuation HFA aerosol inhaler (albuterol sulfate) 2 puffs, inhalation, Every 6 Hours - PRN inhalation 1.0 6.0 h 12/21 Dyspnea, unspecified Active allopurinol 300 mg tablet (allopurinol) 300 mg, oral, Once A Day oral 1.0 1.0 d 12/21 Idiopathic gout, right ankle and foot Active atorvastatin 10 mg tablet (atorvastatin) 10 mg, oral, At B edtime oral 1.0 Mixed hyperlipidemiaActivebupropion HCl 150 mg tablet sustained-release 12 hr (bupropion HCl)150 mg, oral, Every 12 Hoursoral1.012.0 h Overactive bladderActivecefdinir 300 mg capsule (cefdinir) 600 mg, oral, Once A Dayoral1.01.0 d0Urinary tract infection, site not specifiedActivediltiazem HCl 120 mg capsule,extended release 12 hr (diltiazem HCl)120 mg, oral, Every 12 Hoursoral1.012.0 h0 Chronic diastolic (congestive) heart failureActiveEliquis (apixaban) 5 mg tablet (Eliquis (apixaban))5 mg, oral, Twice A Dayoral1.012.0 h0 Paroxysmal atrial fibrillationActivegemfibrozil 600 mg tablet (gemfibrozil)600 mg, oral, Twice A Dayoral1.012.0 h0Mixed hyperlipidemiaActive isosorbide mononitrate 30 mg tablet extended release 24 hr (isosorbide mononitrate)30 mg, oral, Once A Dayoral1.01.0 d0hronic diastolic (congestive) heart failureActiveLasix (furosemide) 20 mg tablet (Lasix (furosemide))20 mg, oral, Once A Dayoral1.01.0 d0hronic diastolic (congestive) heart failureActivelevothyroxine 150 mcg tablet (levothyroxine)150 mcg, oral, Once A Dayoral1.01.0 d0 Hypothyroidism, unspecifiedActiveliothyronine 5 mcg tablet (liothyronine)5 mcg, oral, Once A Dayoral1.01.0 d0503/Hypothyroidism, unspecified Activemetformin 1,000 mg tablet (metformin)1, 000 mg, oral, Twice A Dayoral1.0 12.0 /Type 2 diabetes mellitus with diabetic chronic kidney diseaseActivemetoprolol tartrate 100 mg tablet (metoprolol tartrate)100 mg, oral, Twice A Dayoral1.012.0 /Essential (primary) hypertensionActiveprednisone 10 mg tablet (prednisone)40 mg, oral, Once A Day oral1.01.0 d0Idiopathic gout, right ankle and footActive cefdinir 300 mg capsule (cefdinir)600 mg, oral, Once A Dayoral1.01.0 d012/02/2024 12/15/2024Urinary tract infection, site not specifiedActiveliothyronine 5 mcg tablet (liothyronine)5 mcg, oral, Twice A Dayoral1.012.0 h0/ Hypothyroidism, unspecifiedActiveprednisone 10 mg tablet (prednisone)30 mg, oral, Once A Dayoral1.01.0 d0Idiopathic gout, right ankle and footActiveprednisone 5 mg tablet (prednisone)1 tablet, oral, Once A Dayoral1.0 1.0 /11/2024Idiopathic gout, right ankle and footActiveprednisone 10 mg tablet (prednisone)20 mg, oral, Once A Dayoral1.01.0 d0504/11/2024 Idiopathic gout, right ankle and footActiveprednisone 10 mg tablet (prednisone) 10 mg, oral, Once A Dayoral1.01.0 d0/02/2025Idiopathic gout, right ankle and footActiveprednisone 10 mg tablet (prednisone)1/2 tablet, oral, Once A Dayoral1.01.0 d0Idiopathic gout, right ankle and footActive melatonin 5 mg tablet (melatonin)5mg, oral, As Neededoral1.01.0 d012/17/2024 12/21/2024tivecefdinir 300 mg capsule (cefdinir)600 mg, oral, Once A Dayoral 1.01.0 d0Urinary tract infection, site not specifiedActive prednisone 10 mg tablet (prednisone)40 mg, oral, Once A Dayoral1.01.0 d Idiopathic gout, right ankle and footActiveprednisone 10 mg tablet (prednisone)30 mg, oral, Once A Dayoral1.01.0 d0 Idiopathic gout, right ankle and footActiveprednisone 5 mg tablet (prednisone)1 tablet, oral, Once A Dayoral1.01.0 d0Idiopathic gout, right ankle and footActiveprednisone 10 mg tablet (prednisone)10 mg, oral, Once A Day oral1.01.0 d0Idiopathic gout, right ankle and footActive prednisone 10 mg tablet (prednisone)20 mg, oral, Once A Dayoral1.01.0 d Idiopathic gout, right ankle and footActive Vital Signs Date Vital Result Comment 12/01/2024 02:31 PM Body Height (8302-2) 59 [in_us] 12/01/2024 02:27 PMTemperature (8310-5)98.1 [degF]Oxygen Saturation (46469-2)97 %Respiratory Rate (9279-1)18 /minHeart Rate (8867-4)94 /minBlood Pressure Systolic (8480-6)115 mm[Hg]Blood Pressure Diastolic (8462-4)83 mm[Hg]12/01/2024 08:03 PMTemperature (8310-5)98.2 [degF]Oxygen Saturation (18037-2)98 % Respiratory Rate (9279-1)16 /minHeart Rate (8867-4)76 /minBlood Pressure Systolic (8480-6)134 mm[Hg]Blood Pressure Diastolic (8462-4)72 mm[Hg]12/01/2024 02:47 PMBody Weight (85588-3)210 [lb_av]Body Mass Index (57647-0)42.41 kg/m2 12/02/2024 01:31 AMTemperature (8310-5)98.1 [degF]Oxygen Saturation (67554-3)99 %Respiratory Rate (9279-1)18 /minHeart Rate (8867-4)82 /minBlood Pressure Systolic (8480-6)150 mm[Hg]Blood Pressure Diastolic (8462-4)71 mm[Hg]12/02/2024 10:52 AMTemperature (8310-5)97.9 [degF]Oxygen Saturation (51914-1)98 % Respiratory Rate (9279-1)18 /minHeart Rate (8867-4)84 /minBlood Pressure Systolic (8480-6)146 mm[Hg]Blood Pressure Diastolic (8462-4)70 mm[Hg]12/04/2024 02:17 AMTemperature (8310-5)98 [degF]Oxygen Saturation (27517-1)97 %Respiratory Rate (9279-1)16 /minHeart Rate (8867-4)59 /minBlood Pressure Systolic (8480-6) 127 mm[Hg]Blood Pressure Diastolic (8462-4)50 mm[Hg]12/02/2024 10:55 AM Temperature (8310-5)97.6 [degF]Oxygen Saturation (61880-8)98 %Respiratory Rate (9279-1)16 /minHeart Rate (8867-4)80 /minBlood Pressure Systolic (8480-6)136 mm[Hg]Blood Pressure Diastolic (8462-4)74 mm[Hg]12/04/2024 09:41 AMTemperature (8310-5)98 [degF]Oxygen Saturation (57923-9)98 %Respiratory Rate (9279-1)18 /min Heart Rate (8867-4)90 /minBlood Pressure Systolic (8480-6)118 mm[Hg]Blood Pressure Diastolic (8462-4)80 mm[Hg]12/05/2024 05:48 AMOxygen Saturation (94306-4)96 %12/05/2024 05:47 AMTemperature (8310-5)97.6 [degF]Respiratory Rate (9279-1)16 /minHeart Rate (8867-4)74 /minBlood Pressure Systolic (8480-6)136 mm[Hg]Blood Pressure Diastolic (8462-4)60 mm[Hg]12/05/2024 10:09 AMTemperature (8310-5)97.5 [degF]Oxygen Saturation (85151-7)97 %Respiratory Rate (9279-1)18 /minHeart Rate (67-4)84 /minBlood Pressure Systolic (8480-6)118 mm[Hg]Blood Pressure Diastolic (8462-4)72 mm[Hg]12/05/2024 04:22 PMTemperature (8310-5)97.5 [degF]Oxygen Saturation (46764-4)97 %Respiratory Rate (9279-1)18 /minHeart Rate (67-4)84 /minBlood Pressure Systolic (8480-6)118 mm[Hg]Blood Pressure Diastolic (8462-4)72 mm[Hg]12/06/2024 10:08 AMTemperature (8310-5)97.9 [degF] Oxygen Saturation (72668-4)98 %Respiratory Rate (9279-1)18 /minHeart Rate (8866-4)82 /minBlood Pressure Systolic (8480-6)120 mm[Hg]Blood Pressure Diastolic (8462-4)76 mm[Hg]12/07/2024 10:50 AMTemperature (8310-5)98 [degF] Oxygen Saturation (33552-0)98 %Respiratory Rate (9279-1)16 /minHeart Rate (8867-4)80 /minBlood Pressure Systolic (8480-6)116 mm[Hg]Blood Pressure Diastolic (8462-4)74 mm[Hg]12/08/2024 04:17 PMTemperature (8310-5)98.1 [degF] Oxygen Saturation (85142-0)98 %Respiratory Rate (9279-1)18 /minHeart Rate (8866-4)92 /minBlood Pressure Systolic (8480-6)123 mm[Hg]Blood Pressure Diastolic (8462-4)80 mm[Hg]12/09/2024 10:08 AMTemperature (8310-5)97.6 [degF] Oxygen Saturation (30334-8)97 %Respiratory Rate (9279-1)18 /minHeart Rate (8867-4)81 /minBlood Pressure Systolic (8480-6)120 mm[Hg]Blood Pressure Diastolic (8462-4)74 mm[Hg]12/09/2024 03:55 PMTemperature (8310-5)97.6 [degF] Oxygen Saturation (49510-0)97 %Respiratory Rate (9279-1)18 /minHeart Rate (8867-4)81 /minBlood Pressure Systolic (8480-6)120 mm[Hg]Blood Pressure Diastolic (8462-4)74 mm[Hg]12/10/2024 12:04 PMTemperature (8310-5)97.4 [degF] Oxygen Saturation (85925-1)99 %Respiratory Rate (9279-1)18 /minHeart Rate (8867-4)79 /minBlood Pressure Systolic (8480-6)98 mm[Hg]Blood Pressure Diastolic (8462-4)68 mm[Hg]12/10/2024 04:18 PMTemperature (8310-5)97.4 [degF]Oxygen Saturation (97115-2)99 %Respiratory Rate (9279-1)18 /minHeart Rate (8867-4)79 /minBlood Pressure Systolic (8480-6)98 mm[Hg]Blood Pressure Diastolic (8462-4)68 mm[Hg]12/13/2024 12:52 PMTemperature (8310-5)98.1 [degF]Oxygen Saturation (29204-8)97 %Respiratory Rate (9279-1)18 /minHeart Rate (8867-4)86 /minBlood Pressure Systolic (8480-6)100 mm[Hg]Blood Pressure Diastolic (8462-4)62 mm[Hg] 12/11/2024 10:58 AMTemperature (8310-5)97.6 [degF]Oxygen Saturation (86520-6)98 %Respiratory Rate (9279-1)18 /minHeart Rate (8867-4)80 /minBlood Pressure Systolic (8480-6)102 mm[Hg]Blood Pressure Diastolic (8462-4)66 mm[Hg]12/13/2024 04:15 PMTemperature (8310-5)98.1 [degF]Oxygen Saturation (82901-3)97 % Respiratory Rate (9279-1)18 /minHeart Rate (8867-4)86 /minBlood Pressure Systolic (8480-6)100 mm[Hg]Blood Pressure Diastolic (8462-4)62 mm[Hg]12/14/2024 11:41 AMTemperature (8310-5)97.2 [degF]Oxygen Saturation (88378-1)97 % Respiratory Rate (9279-1)18 /minHeart Rate (8867-4)98 /minBlood Pressure Systolic (8480-6)120 mm[Hg]Blood Pressure Diastolic (8462-4)70 mm[Hg]12/14/2024 01:02 AMBody Weight (94771-1)209.5 [lb_av]Body Mass Index (66851-0)42.31 kg/m2 12/14/2024 04:03 PMTemperature (8310-5)97.2 [degF]Oxygen Saturation (98357-7)97 %Respiratory Rate (9279-1)18 /minHeart Rate (8866-4)98 /minBlood Pressure Systolic (8480-6)120 mm[Hg]Blood Pressure Diastolic (8462-4)70 mm[Hg]12/15/2024 05:56 PMTemperature (8310-5)98.2 [degF]Oxygen Saturation (98859-8)98 % Respiratory Rate (9279-1)18 /minHeart Rate (8867-4)64 /minBlood Pressure Systolic (8480-6)137 mm[Hg]Blood Pressure Diastolic (8462-4)84 mm[Hg]12/16/2024 12:58 PMTemperature (8310-5)98.3 [degF]Oxygen Saturation (11854-6)98 % Respiratory Rate (9279-1)16 /minHeart Rate (8867-4)68 /minBlood Pressure Systolic (8480-6)130 mm[Hg]Blood Pressure Diastolic (8462-4)80 mm[Hg]12/18/2024 11:51 AMTemperature (8310-5)97.4 [degF]Oxygen Saturation (62772-5)96 % Respiratory Rate (9279-1)18 /minHeart Rate (8867-4)81 /minBlood Pressure Systolic (8480-6)112 mm[Hg]Blood Pressure Diastolic (8462-4)76 mm[Hg]12/18/2024 03:56 PMTemperature (8310-5)97.4 [degF]Oxygen Saturation (00802-0)96 % Respiratory Rate (9279-1)18 /minHeart Rate (8867-4)81 /minBlood Pressure Systolic (8480-6)112 mm[Hg]Blood Pressure Diastolic (8462-4)76 mm[Hg]12/19/2024 11:22 AMTemperature (8310-5)98 [degF]Oxygen Saturation (24071-6)97 %Respiratory Rate (9279-1)18 /minHeart Rate (8867-4)83 /minBlood Pressure Systolic (8480-6)90 mm[Hg]Blood Pressure Diastolic (8462-4)62 mm[Hg]12/19/2024 04:14 PMTemperature (8310-5)98 [degF]Oxygen Saturation (17809-3)97 %Respiratory Rate (9279-1)18 /min Heart Rate (8867-4)83 /minBlood Pressure Systolic (8480-6)90 mm[Hg]Blood Pressure Diastolic (8462-4)62 mm[Hg]12/20/2024 12:18 PMTemperature (8310-5)97.8 [degF]Respiratory Rate (9279-1)18 /minHeart Rate (8867-4)80 /min12/20/2024 12:19 PMOxygen Saturation (42476-1)98 %Blood Pressure Systolic (8480-6)106 mm[Hg] Blood Pressure Diastolic (8462-4)68 mm[Hg] Social History No smoking Hx information available Encounters Type CPT Code Date Location Provider Indication s encounter report 12/01/2024 10:22 Yaneli Leung MD01encounter [email or web address]/01/2024 01:45 PM - 12/21/2024 12:16 PMTy GUAMAN Advance Directives Directive Description Verification Date Supporting Document(s) Other Directive
--- OUTSIDE RECORDS SUMMARY | 2025-07-31 18:13 | XMS_ITS | Clinical Summary ---
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 Name Role Phone Aashish Pérez MD Unavailable [phone] Saroj Carter MD Unavailable [phone] Saroj Oseguera MD Unavailable [phone] Aashish Pérez MD Primary Care Provider [phone] Allergies Active AllergyReactionsCriticalityNoted DateCommentsAmino XsjisZrax15/07/2022 Syjxjuixizx11/06/4833OogarygzzzCmhhinmz84/06/2023enicillin NEleuZhi62/06/2023 Htiipbmqchppt92/06/2023 Medications MedicationSigDispense QuantityRefillsLast FilledStart DateEnd DateStatus Eliquis 5 MG tablet Take 5 mg by mouth in the morning and 5 mg before bedtime.04/17/2023ctive dilTIAZem CD (Cardizem CD) 120 MG 24 hr capsule Take 120 mg by mouth in the morning and 120 mg before bedtime.Active isosorbide mononitrate ER (Imdur) 30 MG 24 hr tablet Indications:Coronary artery disease involving yocha dehe coronary artery of yocha dehe heart without angina pectorisTake 1 tablet (30 mg) by mouth Daily 30 tablet ctive albuterol HFA 90 mcg/act inhaler Indications:Restrictive lung diseaseInhale 2 puffs every 6 (six) hours if needed for shortness of breath 18 g 11002/05/2024ctive atorvastatin (Lipitor) 10 MG tablet Indications:Hyperlipidemia, mixedTake 1 tablet (10 mg) by mouth Daily 90 tablet tive gemfibrozil (Lopid) 600 MG tablet Indications:Hyperlipidemia, mixedTake 1 tablet (600 mg) by mouth in the morning and 1 tablet (600 mg) before bedtime. 180 tablet 5Active metoprolol tartrate (Lopressor) 50 MG tablet Take 100 mg by mouth in the morning and 100 mg before bedtime.5Active levothyroxine (Synthroid, Levoxyl) 150 MCG tablet Indications:Acquired hypothyroidismTake 1 tablet (150 mcg) by mouth in the morning. Take before meals. 30 tablet 5Active liothyronine (Cytomel) 5 MCG tablet Indications:ESS (euthyroid sick syndrome)Take 1 tablet in AM and 1 tablet in PM on an empty stomach. DUARTE; [employer] or [employer] brands only 60 tablet 06/02/2025tive nitrofurantoin, macrocrystal-monohydrate, (Macrobid) 100 MG capsule Take 100 mg by mouth in the morning and 100 mg before bedtime.06/24/2025tive digoxin (Lanoxin) 125 MCG tablet Take 125 mcg by mouth Daily5Active metFORMIN (Glucophage) 1000 MG tablet Indications:Type 2 diabetes mellitus with stage 3a chronic kidney disease, without long-term current use of insulin (HCC)Take 1 tablet (1,000 mg) by mouth in the morning and 1 tablet (1,000 mg) in the evening. Take with meals. 180 tablet 6Active allopurinol (Zyloprim) 300 MG tablet Indications:HyperuricemiaTake 1 tablet (300 mg) by mouth Daily 90 tablet 6Active furosemide (Lasix) 20 MG tablet Indications:Pulmonary hypertension (HCC)Take 1 tablet (20 mg) by mouth in the morning. 90 tablet /6Active buPROPion SR (Wellbutrin SR) 150 MG 12 hr tablet Indications:Recurrent major depressive disorder, in partial remissionTake 1 tablet (150 mg) by mouth in the morning and 1 tablet (150 mg) before bedtime. 180 tablet /6Active nitroglycerin (Nitrostat) 0.4 MG SL tablet Indications:Coronary artery disease involving yocha dehe coronary artery of yocha dehe heart without angina pectorisPlace 1 tablet (0.4 mg) under the tongue every 5 (five) minutes if needed for chest pain 25 tablet 06/30/2025tive spironolactone (Aldactone) 50 MG tablet Indications:Chronic venous insufficiency of lower extremityTake 1 tablet (50 mg) by mouth Daily 30 tablet ctive Active Problems ProblemNoted DateDiagnosed DateChronic jdzyppd6410/25/2024hronic venous insufficiency of lower nlsjcdzug90/27/2024MI 40.0-44.9, adult11/11/2023 Essential qirzotrawobq50/13/2023bsolute cdzkzr0005/14/2023cquired hypothyroidism 05/14/2023rthritis of knee, left05/14/2023rthritis of knee, right05/14/2023 Biatrial gocnmaskdjz36/06/2023hronic post-traumatic stress disorder (PTSD) 05/14/2023oronary artery disease involving yocha dehe coronary artery of yocha dehe heart without angina /06/2023DD (degenerative disc disease), thoracic 05/14/2023Type 2 diabetes mellitus with stage 3a chronic kidney disease, without long-term current use of eqdofrm6405/14/2023ESS (euthyroid sick syndrome) 05/14/2023Fibrocystic breast gmyupgj2905/14/2023Hearing loss05/14/2023 Hyperlipidemia, mixed05/14/2023Incomplete uterovaginal fuynvxbs51/06/2023 Microalbuminuric diabetic rsfsojgiqxp18/06/2023Mild cognitive impairment with memory loss05/14/2023Mixed tsrtfoomkebn83/06/2023Morbid zcuqpbf8705/14/2023Murmur, ktjuddq5305/14/2023Non-alcoholic fatty liver mdfdnvb0305/14/2023aroxysmal atrial smudswfikaht15/06/2023ostmenopausal atrophic pqdwixelx20/06/2023ulmonary yrlpjntriuya19/06/2023Recurrent major depressive disorder, in partial remission 05/14/2023Restrictive lung ympdsho7505/14/2023Stage 3a chronic kidney disease 05/14/2023Stented coronary hohjct3905/14/2023Thoracic ukvlquohh77/06/2023 Resolved Problems ProblemNoted DateDiagnosed DateResolved DateHypertensive kidney disease with stage 3a chronic kidney nqiseom59/hronic fatigue syndrome / Encounters DateTypeDepartmentCare LhswOmbmpyhzhfx37/18/2025 2:30 PM ESTOffice Visit [facility] [address] [place] [address] Aashish Pérez MD Chronic venous insufficiency of lower jzltdjbgu75/18/2025amb flowsheet [facility] [address] [place] [address] Aashish Pérez MD 07/26/20254801Oeqtpe25/23/2025 2:00 PM EDTOffice Visit [place] [address] [place] [address] Aashish Pérez MD Essential hypertension (Primary Dx); Stage 3a chronic kidney disease ([facility]-HCC); Hyperlipidemia, mixed; Type 2 diabetes mellitus with stage 3a chronic kidney disease, without long-term current use of insulin (HCC); Microalbuminuric diabetic nephropathy (HCC); Hyperuricemia; Pulmonary hypertension (HCC); Recurrent major depressive disorder, in partial remission; Coronary artery disease involving yocha dehe coronary artery of yocha dehe heart without angina pectoris; Morbid obesity ([facility]-HCC)06/30/2025amb flowsheet [address] [address] [place] [address] Aashish Pérez MD 06/30/20256875Xetqej65/25/2025Orders Only [address] [place] [address] Hortensia Dobbs, ANGIE Acquired hypothyroidism ; ESS (euthyroid sick syndrome)from Last 3 Months Immunizations ImmunizationAdministration DatesNext DueABRYSVO - Respiratory syncytial virus (RSV), vaccine, bivalent, protein subunit RSV prefusion F, diluent reconstituted, 0.5 mL, PF08/11/2024Influenza, High Dose Seasonal, Preservative Free06/13/2021,07/05/2019,07/06/2018Influenza, Recombinant, injectable, preservative free06/13/2021Influenza, Seasonal, Quadrivalent, Adjuvanted 07/10/2023Influenza, injectable, quadrivalent, preservative free08/14/2022, 07/06/2018,06/23/2017,07/08/2016,07/10/2015Influenza, seasonal, injectable, preservative free08/09/2015Influenza, trivalent, wyilznkxjy28/05/2025,06/21/2024 ,07/06/2020,07/08/2016Pneumococcal Conjugate PCV 4Pneumococcal Polysaccharide GYPH2499,05/19/20137182MAFS-VZT-4 (COVID-19) vaccine, mRNA, spike protein, LNP, PF, 50 mcg/0.5 mL07/13/2025,06/21/2024,08/14/2023Td (adult), 5 Lf tetanus toxoid, preservative free, fwmaerje69/03/2007Zoster, Recombinant 06/21/2020,10/08/2019Zoster, live06/18/2013 Family History Medical HistoryRelationNameCommentsHeart diseaseBrother 1Heart diseaseFather DiabetesMotherHeart diseaseMotherBreast cancerSisterColon cancerNeg HxOvarian cancerNeg HxRelationNameStatusCommentsBrother 6u3Xmidqkd 8n3KhsylnCiwkwtrsLpjcay DeceasedSister Social History Tobacco UseTypesPacks/DayYears UsedDateSmoking Tobacco: NeverSmokeless Tobacco: Never Tobacco Cessation:Counseling Given: Yes Alcohol UseStandard Drinks/WeekCommentsNot Currently0 (1 standard drink = 0.6 oz pure alcohol)Caffeine intake: 1 cup day of soda, occasional diet cokeAUDIT-C AnswerDate RecordedQ1: How often do you have a drink containing alcohol?Never 08/23/2024Q2: How many drinks containing alcohol do you have on a typical day when you are drinking?Patient does not drink08/23/2024Q3: How often do you have six or more drinks on one occasion?Never08/23/2024HQ-2AnswerDate Recorded Patient Health Questionnaire-2 Lytni961EducationAnswerDate RecordedWhat is the highest level of school you have completed or the highest degree you have received?High school /13/2023CommentsNoSex and Gender InformationValueDate RecordedSex Assigned at BirthNot on fileLegal SexFemale 11/20/2022 6:39 PM EDTGender IdentityNot on fileSexual OrientationNot on file Last Filed Vital Signs Vital SignReadingTime TakenCommentsBlood Blbihrtz411/7210 1:57 PM EDT Pqqsi3535 1:57 PM EDTTemperature--Respiratory Rate--Oxygen Dgvdljnfwn66% 06/30/2025 1:57 PM EDTInhaled Oxygen Concentration--Rkwnik68.6 kg (202 lb) 06/30/2025 1:57 PM JLZHdcbme508.6 cm (4' 10.5 )06/30/2025 1:57 PM EDTBody Mass Index41.510 1:57 PM EDT Plan of Treatment DateTypeDepartmentCare Team (Latest Contact Info)Qxkkpvntcfk29/17/2025 1:45 PM ESTOffice Visit [facility] [place] [facility] [address] [facility] [address] [place] [address] Angel Ramsey DO [address] [facility] [address] [place] [address] 10/20/2025 2:00 PM ESTOffice Visit [address] [address] Aashish Pérez MD [address] [address] (Fax) 12/22/2025 2:00 PM EDTOffice Visit [address] [address] Aashish Pérez MD [address] [address] (Fax) Health MaintenanceDue DateLast DoneCommentsCOVID-19 Vaccine ( season) , 07/02/2021, 11/15/2020, Additional history existsDiabetes: Hemoglobin A1C61, 01/12/2025, 02/04/2024, Additional history existsDiabetes: Urine Protein Tquhzbghx74/07/49612101/12/2025, 10/08/2021, 10/04/2020, Additional history existsDiabetes: Retinopathy Oaphazoot58/09/2026 05/17/2024, 05/16/2023, 05/17/2022, Additional history existsColonoscopy Mpbpwnpjyxav33/28/2011Colorectal Cancer ScreeningDiscontinuedFIT-DNADiscontinued 09/30/2022, 09/30/2022neumococcal Vaccine: 65+ CsyuvMiskophdd96/04/2024, 04/01/2018, 05/19/20137313ZspbswjolQookfizuthaj30/20/2025, 10/02/2023, 10/14/2022, Additional history existsInfluenza RaazwexGauohegav89/05/2025, 06/21/2024, 07/10/2023, Additional history existsCT ColonographyDiscontinuedFITDiscontinued FOBTDiscontinuedSigmoidoscopyDiscontinued Procedures Procedure NamePriorityDate/TimeAssociated DiagnosisCommentsHEMOGLOBIN H1OUdsfyey 06/14/2025 1:15 PM EDT Type 2 diabetes mellitus with stage 3b chronic kidney disease, without long-term current use of insulin (HCC) T3, OAZMTjolwhc57/07/2025 1:10 PM EDT ESS (euthyroid sick syndrome) Acquired hypothyroidism T4, ZLCIOdauslo75/07/2025 1:10 PM EDT Acquired hypothyroidism WHRAbhlsll37/07/2025 1:10 PM EDT Acquired hypothyroidism MICROALBUMIN / CREATININE URINE IQJXCQfuaywh48/07/2025 8:44 AM EDT Type 2 diabetes mellitus with stage 3a chronic kidney disease, without long-term current use of insulin (HCC) Microalbuminuric diabetic nephropathy (HCC) Stage 3b chronic kidney disease (CMS-HCC) Hypertensive kidney disease with stage 3a chronic kidney disease (HCC) BI MAMMOGRAM SCREENING TOMOSYNTHESIS QVRJRYYZM02/20/2025 2:59 PM EDT DIABETIC RETINOPATHY SCREENING - OU - BOTH GXLLAidyomf20/09/2024 8:01 AM EDTLAB COLOGUARD?? COLON CANCER LVSGIFKetzrso31/23/2023 MTVGLUOFDDEUdxszbb60/28/2011 12:00 PM EST from Last 3 Months or Most Recently Relevant to Health Maintenance Results * (ABNORMAL) Hemoglobin A1c (06/14/2025 1:15 PM EDT)ComponentValueRef RangeTest MethodAnalysis TimePerformed AtPathologist SignatureHemoglobin A1C6.3(H)<5.7 % QUESTComment: For someone without known diabetes, a hemoglobin [...] A1c for diagnosis of diabetes for children. Specimen (Source)Anatomical Location / LateralityCollection Method / Volume Collection TimeReceived TimeBloodVenous blood specimen / Ffbjpfm0906/14/2025 1:15 PM EDT1 1:15 PM EDT Narrative Resulting Agency Comment Performing Organization Information ?Site ID: QPT ?Name: [facility] ?Address: [address] [place] [address], [address] [place] [phone] ?Director: Jaylon Bagley MD Authorizing ProviderResult TypeResult StatusEdramu Pérez MDLAB BLOOD ORDERABLESFinal ResultPerforming OrganizationAddressCity/State/ZIP CodePhone Number [facility]ST * T3, free (06/14/2025 1:10 PM EDT)ComponentValueRef RangeTest MethodAnalysis TimePerformed AtPathologist SignatureT3, FREE3.82.3 - 4.2 pg/mLQUESTSpecimen (Source)Anatomical Location / LateralityCollection Method / VolumeCollection TimeReceived TimeBloodVenous blood specimen / Xvxrmta9706/14/2025 1:10 PM EDT 06/14/2025 1:11 PM EDT Narrative Resulting Agency Comment Performing Organization Information ?Site ID: QPT ?Name: [facility] ?Address: [address] [place] [address], [address] [place] [address] ?Director: Jaylon Bagley MD Authorizing ProviderResult TypeResult StatusAashish Pérez MDWAMEGO HEALTH CENTER BLOOD ORDERABLESFinal ResultPerforming OrganizationAddGeisinger Encompass [facility] Rehabilitation Hospitalty/[facility] CodePhone Number [facility] * (ABNORMAL) TSH (06/14/2025 1:10 PM EDT)ComponentValueRef RangeTest Method Analysis TimePerformed AtPathologist SignatureTSH0.03(L)0.40 - 4.50 mIU/LQUEST Specimen (Source)Anatomical Location / LateralityCollection Method / Volume Collection TimeReceived TimeBloodVenous blood specimen / Gpgfttd0306/14/2025 1:10 PM EDT1 1:11 PM EDT Narrative Resulting Agency Comment Performing Organization Information ?Site ID: QPT ?Name: [facility] ?Address: [address] [place] [address] ?Director: Jaylon Bagley MD Authorizing ProviderResult TypeResult StatusAashish BRANDT BLOOD ORDERABLESFinal ResultPerforming OrganizationAddGeisinger [facility]compass Health Rehabilitation Hospitalty/State/ZIP CodePhone Number [facility]ST * T4, free (06/14/2025 1:10 PM EDT)ComponentValueRef RangeTest MethodAnalysis TimePerformed AtPathologist SignatureT4, FREE1.80.8 - 1.8 ng/dLQUESTSpecimen (Source)Anatomical Location / LateralityCollection Method / VolumeCollection TimeReceived TimeBloodVenous blood specimen / Jlirtjp9306/14/2025 1:10 PM EDT 06/14/2025 1:11 PM EDT Narrative Resulting Agency Comment Performing Organization Information ?Site ID: QPT ?Name: [facility] ?Address: [facility] [place] , [address] [place] [phone] ?Director: Jaylon Bagley MD Authorizing ProviderResult TypeResult StatusAashish BRANDT BLOOD ORDERABLESFinal ResultPerforming OrganizationAddressCity/State/ZIP CodePhone Number [facility] * (ABNORMAL) Microalbumin / creatinine urine ratio (01/12/2025 8:44 AM EDT) ComponentValueRef RangeTest MethodAnalysis TimePerformed AtPathologist SignatureCREATININE, RANDOM WWASN1840 - 275 mg/dLQUESTALBUMIN, URINE1.3See Note: mg/dLQUESTComment: Reference Range: Reference Range Not established ALBUMIN/CREATININE RATIO, RANDOM URINE35(H)<30 mg/g creatQUESTComment: The ADA defines abnormalities in albumin excretion as follows: Albuminuria Category ?Result (mg/g creatinine) Normal to Mildly increased <30 Moderately increased ? 30-299 Severely increased > OR = 300 The ADA recommends that at least two of three specimens collected within a 3-6 month period be abnormal before considering a patient to be within a diagnostic category. Specimen (Source)Anatomical Location / LateralityCollection Method / Volume Collection TimeReceived TimeUrineUrine specimen obtained by clean catch procedure / Esoyrnq5201/12/2025 8:44 AM EDT01/12/2025 2:43 PM EDT Narrative [facility] - 01/14/2025 10:44 AM EDT FASTING:YES FASTING: YES Resulting Agency Comment Performing Organization Information ?Site ID: QPT ?Name: [facility] ?Address: [facility] [place] , [address] [place] [address] ?Director: Jaylon Bagley MD Authorizing ProviderResult TypeResult StatusAashish BRANDT URINE ORDERABLESFinal ResultPerforming OrganizationAddressCity/State/ZIP CodePhone Number [facility]ST * Bilateral screening mammogram with tomosynthesis (11/25/2024 2:59 PM EDT) Anatomical RegionLateralityModalityBreastBilateralMammographySpecimen (Source) Anatomical Location / LateralityCollection Method / VolumeCollection Time Received Time11/25/2024 2:59 PM EDT Impressions 11/25/2024 3:04 PM EDT NO MAMMOGRAPHIC EVIDENCE OF MALIGNANCY. ? ROUTINE FOLLOW-UP IS RECOMMENDED IN ONE YEAR. ? RESULT CODE: 2 ? Benign Findings(s) ?? DENSITY CODE: 1 (<25% glandular) FOLLOW UP: 1YR ? The false-negative rate of mammography is approximately 10-percent. ? Management of a palpable abnormality must be based on clinical grounds. ? Patient was entered into a reminder system with a target due date for the next mammogram. ? Impression dictated by: Savi Prather M.D.11/25/2024 3:02 PM ? Dictation Location: S01 ? Dictated By: ?Savi Prather MD ? 11/25/24 1459 ? Signed By: <Electronically signed by MD Savi Prather in OV> ? 11/25/24 1502 Narrative 11/25/2024 3:04 PM EDT [facility] ?[address] ?[place] [address] ?? [phone] ? Mammography Report ? Signed ? Patient: Blake,Gilda L ?MR#: [id number] ?? 63 ? : 1950 ?Acct:[id number] ? Age/Sex: 74 / F ?Adm Date: 11/25/24 ? Loc: [place] ?Room: ?Type: REG CLI ?? Attending Dr: Angel Ramsey DO ? Ordering Provider: Angel Ramsey,DO ? Date of Service: 11/25/24 ? Procedure(s): MM screening mammo BI w/CAD ?? Accession Number(s): ([id number]) MM/MM screening mammo BI w/CAD: SCREENING ? Copies to: Aashish Pérez MD ?? Angel Ramsey,DO ? CLINICAL DATA: ??Screening for malignancy. ? BILATERAL SCREENING MAMMOGRAMS - FULL FIELD DIGITAL WITH TOMOSYNTHESIS AND CAD ? Tomosynthesis craniocaudal and mediolateral oblique views of both breasts were obtained using low- dose digital technique. ??Comparison is made to prior studies from August 27, 2021 through October 02, 2023. ??This examination was reviewed with the aid of CAD. ? The breast parenchyma has been largely replaced by fat. Benign calcifications and asymmetries are again seen. There are no developing masses, typically malignant calcifications or architectural distortion. ??There has been no significant interval change. ? MM/MM screening mammo BI w/CAD ?? Procedure Note Radiology, Radiologist, - 11/25/2024 [place] [address] Mammography Report Signed Patient: Gilda Blake LMR#: [id number] 63 : 9Acct:[id number] Age/Sex: 74 / FAdm Date: 11/25/24 Loc: [place] Room:Type: [facility] Attending Dr: Angel aRmsey DO Ordering Provider: Angel Ramsey DO Date of Service: 11/25/24 Procedure(s): MM screening mammo BI w/CAD Accession Number(s): ([id number]) MM/MM screening mammo BI w/CAD:SCREENING Copies to: MD Angel Vera DO CLINICAL DATA: Screening for malignancy. BILATERAL SCREENING MAMMOGRAMS - FULL FIELD DIGITAL WITH TOMOSYNTHESIS ANDCAD Tomosynthesis craniocaudal and mediolateral oblique views of both breastswere obtained using low- dose digital technique. Comparison is made to prior studies from 2020 through October 02, 2023. This examination was reviewed with the aid of CAD. The breast parenchyma has been largely replaced by fat. Benigncalcifications and asymmetries are again seen. There are no developing masses, typically malignantcalcifications or architectural distortion. There has been no [...] system with a target due date for thenext mammogram. Impression dictated by: Savi Prather M.D.11/25/2024 3:02 PM Dictation Location: [facility] Dictated By: Savi Prather MD 11/25/24 1455 Signed By: <Electronically signed by MD Savi Prather in OV> 11/25/24 1502 Authorizing ProviderResult TypeResult StatusWilliam Debra Ramsey DOIMG BI PROCEDURES Final Result * Diabetic Retinopathy Screening - OU - Both Eyes (05/17/2024 8:01 AM EDT) Anatomical RegionLateralityModalityHeadOther Narrative Authorizing ProviderResult TypeResult StatusTaylor Fareed ODOPHTH PHOTOGRAPHYFinal Result * (ABNORMAL) Cologuard?? colon cancer screening (09/30/2022)ComponentValueRef RangeTest MethodAnalysis TimePerformed AtPathologist SignatureCOLOGUARD RESULT REPORTABLEPositive(A)NegativeNOMS LEGACY EXTERNAL LABComment: POSITIVE TEST RESULT. A positive Cologuard result should be followed with a colonoscopy or visual examination of the colon. The normal value (reference range) for this assay is negative. TEST DESCRIPTION: Composite algorithmic analysis of stool DNA-biomarkers with hemoglobin immunoassay. ?? Quantitative values of individual biomarkers are not reportable and are not associated with individual biomarker result reference ranges. Cologuard is intended for colorectal cancer screening ofadults of either sex, 45 years or older, who are at average-risk for colorectal cancer (CRC). Cologuard has been approved for use by the U.S. FDA. The performance of Cologuard was established in a cross sectional study of average-risk adults aged 50-84. Cologuard performance in patients ages 45 to 49 years was estimated by sub-group analysis of near-age groups. Colonoscopies performed for a positive result may find as the most clinically significant lesion: colorectal cancer [4.0%], advanced adenoma (including sessile serrated polyps greater than or equal to 1cm diameter) [20%] or non- advanced adenoma [31%]; or no colorectal neoplasia [45%]. These estimates are derived from a prospective cross-sectional screening study of 10,000 individuals at average risk for colorectal cancer who were screened with both Cologuard and colonoscopy. (Dano Junior et al, N Engl J Med 2014;370(14):5797-7252.) Cologuard may produce a false negative or false positive result (no colorectal cancer or precancerous polyp present at colonoscopy follow up). A negative Cologuard test result does not guarantee the absence of CRC or advanced adenoma (pre-cancer). The current Cologuard screening interval is every 3 years. ([place] [employer] Society and U.S. Multi-Society Task Force). Cologuard performance data in a 10,000 patient pivotal study using colonoscopy as the reference method can be accessed at the following location: www.[employer]/results. Additional description of the Cologuard test process, warnings and precautions can be found at www.cologuard.com. Specimen (Source)Anatomical Location / LateralityCollection Method / Volume Collection TimeReceived Time09/30/2022 Narrative Authorizing ProviderResult TypeResult StatusFredkimo José [facility] MOLECULAR DIAGNOSTICS ORDERABLESFinal ResultPerforming OrganizationAddressCity/State/ZIP CodePhone Number [facility] * Colonoscopy (08/05/2011 12:00 PM EST)Anatomical RegionLateralityModality EndoscopySpecimen (Source)Anatomical Location / LateralityCollection Method / VolumeCollection TimeReceived Time08/05/2011 12:00 PM EST Narrative 08/05/2011 12:00 PM EST PERFORMED AT [facility] LOCATION:[id number] abnormal Procedure Note CONVERSION, GENERIC - 01/23/2023 PERFORMED AT [facility] LOCATION:[id number] abnormal Authorizing ProviderResult TypeResult StatusAashish Pérez MDENDOSCOPY PROCEDURE ORDERABLESFinal Result from Last 3 Months or Most Recently Relevant to Health Maintenance Insurance * Guarantor: Gilda Blake TypeRelation to PatientDate of BirthPhone Billing AddressPersonal/IzwhqhHswr1950 [address] [place] [address] Advance Directives TypeDate RecordedPatient RepresentativeExplanationAdvance Directives and Living Will DNRAdvance Directives and Living Will04/19/2019 [id number] Will Care Teams Team MemberRelationshipSpecialtyStart DateEnd Date Aashish Pérez MD [address] [place] [address] [address] PCP - ACO Reach01/30/23 Aashish Pérez MD [address] [address] PCP - GeneralFamily Medicine01/11/25 Saroj Carter MD [address] [place] [address] Referring RgedzdgzxFinciuiplm00/13/23 Saroj Oseguera MD [address] [place] [address] Referring PhysicianUrology12/02/23
--- OUTSIDE RECORDS SUMMARY | 2025-07-31 18:13 | XMS_ITS | Clinical Summary ---
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 Role Phone Unavailable Primary Care Provider Unavailabl e Social History Tobacco UseTypesPacks/DayYears UsedDateSmoking Tobacco: Never AssessedUT Safety & EnvironmentAnswerDate RecordedFear of Current or Ex-PartnerNot on file 10/30/2023Emotionally AbusedNot on file4Physically AbusedNot on file 10/30/2023Sexually AbusedNot on file10/30/2023hysically or Sexually AbusedNot on file10/30/2023CommentsUnknownSex and Gender InformationValueDate RecordedSex Assigned at BirthNot on fileLegal TldJkwnvu02/29/2022 11:54 PM EDT Gender IdentityNot on fileSexual OrientationNot on file Plan of Treatment Health MaintenanceDue DateLast DoneCommentsDiabetes: Hemoglobin A1C1950 Medicare Annual Wellness (AWV)1950Diabetes: Retinopathy Screening 1959Depression Jwkpgmunl60/09/1961Diabetes: Urine Protein Screening 1968Fall Risk Itkuajqff34/09/2014dult Ifhryhj57/03//11/2006 Pneumococcal Vaccine: 50+ Years (2 of 2 - PCV), 05/19/2013 COVID-19 Vaccine (1 - 2024- season)2025Influenza Vaccine (#1)2025 08/14/2022, 06/13/2021, 07/06/2020, Additional history existsZoster Vaccines Gyutdetyg61/14/2020, 10/08/2019, 06/18/2013Colorectal Cancer Screening MmdybuzstwhxILJPdutqcbdbivw94/23/2023CT ColonographyDiscontinuedColonoscopy DiscontinuedFIT-DNADiscontinuedFOBTDiscontinuedHIB VaccinesAged OutNo longer eligible based on patient's age to complete this topicHPV VaccinesAged OutNo longer eligible based on patient's age to complete this topicIPV VaccinesAged OutNo longer eligible based on patient's age to complete this topicMeningococcal B VaccineAged OutNo longer eligible based on patient's age to complete this topicMeningococcal VaccineAged OutNo longer eligible based on patient's age to complete this topicRotavirus VaccinesAged OutNo longer eligible based on patient's age to complete this topicSigmoidoscopyDiscontinued Insurance * Guarantor: Gilda Blakeount TypeRelation to PatientDate of BirthPhone Billing AddressPersonal/KpnflsIipd1950 [address] [place] [address]
--- OUTSIDE RECORDS SUMMARY | 2025-07-31 18:13 | XMS_ITS | Encounter Summary ---
Demographics Address [address] [place] [address] Mobile Phone Home Phone Preferred Language en Marital Status Unmarried Congregation Affiliation Unknown Race White Ethnic Group Not or Lati no Author Organization [facility] Address [address] [place] [address] Care Team Providers Care Casserole Preparer Name Role Phone Aashish Pérez MD Unavailable [phone] Saroj Carter MD Unavailable [phone] Saroj Oseguera MD Unavailable [phone] Aashish Pérez MD Primary Care Provider [phone] Encounter Details DateTypeDepartmentCare Team (Latest Contact Info)Fsuptffxtvq36/18/2025Travel Social History Tobacco UseTypesPacks/DayYears UsedDateSmoking Tobacco: NeverSmokeless [...] have six or more drinks on one occasion?Never4PHQ-2AnswerDate Recorded Patient Health Questionnaire-2 Ghlet258EducationAnswerDate RecordedWhat is the highest level of school you have completed or the highest degree you have received?High school arakdzyp85/13/2023CommentsNoSex and Gender InformationValueDate RecordedSex Assigned at BirthNot on fileLegal SexFemale 11/20/2022 6:39 PM EDTGender IdentityNot on fileSexual OrientationNot on file documented as of this encounter Plan of Treatment DateTypeDepartmentCare Team (Latest Contact Info)Idtyqxbplga03/17/2025 1:45 PM ESTOffice Visit [facility] [facility] [address] [place] [phone] Angel Ramsey DO [address] [place] [id number] 10/20/2025 2:00 PM ESTOffice Visit [facility] [address] [place] [address] Aashish Pérez MD [address] [place] [address] (Fax) 12/22/2025 2:00 PM EDTOffice Visit [facility] [address] [facility] [address] [place] [address] Aashish Pérez MD [address] [place] [address] (Fax) documented as of this encounter Visit Diagnoses Not on filedocumented in this encounter Additional Health Concerns AssessmentNoted TimePHQ-9 Depression Total Score: 1:00 PM EST documented as of this encounter Care Teams Team MemberRelationshipSpecialtyStart DateEnd Date Aashish Pérez MD [address] [place] [address] (Fax) PCP - ACO Reach01/30/23 Aashish Pérez MD [address] [place] [address] (Fax) PCP - GeneralFamily Medicine01/11/25 Saroj Carter MD [address] [place] [address] Referring VnfecuuseGypmyxuqgk05/13/23 Saroj Oseguera MD [address] [place] [address] Referring PhysicianUrology12/02/23documented as of this encounter
--- NOTE | 2025-07-31 18:41 | PC.NURSE ---
Pt was noted on monitor to be dropping into the 80's spO2 this was brought to the attention of Dr. Cheng Pt placed on nasal canula at 2 liters Given vanilla pudding
[2025-07-31] MEDS: FUROSEMIDE 40 MG/4 ML VIAL IVP ×2 (18:53→22:19)
--- OUTSIDE RECORDS SUMMARY | 2025-07-31 19:34 | XMS_ITS | CCD ---
Demographics Address [address] [place], [place] [id number] Preferred Language en Marital Status Single Pentecostalism Affiliation Unknown Race White Ethnic Group Not or Lati no Author Organization [facility] Care Team Providers Care Manager Maritime Name Role Phone NIRU GALINDO Admitting Unavailab NIRU Sage Attending Unavailab yajaira NO, PHYSICIAN Primary Care Unavailable Aashish Laguna Primary Care Provider Aashish Laguna Primary Care Provider Aashish Laguna Primary Care Provider Aashish Laguna MD Primary Care Provider Aashish Laguna MD Primary Care Provider AASHISH LAGUNA Primary Care Physician Aashish Laguna MD Primary Care Provider [phone] ARAMESNURA PACHECO S Referring Unavailable AASHISH LAGUNA [...] Unavailable MD Aashish Laguna Primary Care Provider [phone] MD Aashish Laguna Attending Provider MD Aashish [...] Unavailable MD Aashish Laguna Primary Care Provider [phone] DO Angel Ramsey Attending Provider Aashish Laguna MD Unavailable [phone] Aashish Laguna MD Primary Care Provider Niru Galindo MD Unavailable [phone] Aashish Laguna MD Unavailable Aashish Laguna MD Primary Care Provider [phone] Niru Oseguera MD Unavailable Aashish Laguna MD Unavailable Aashish Laguna MD Primary Care Provider Aashish Laguna MD Primary Care Provider Angel Ramsey DO Attending Provider Abdoulaye Brothers MD Attending Provider Aashish Laguna Primary Care Unavailable Angel Ramsey Attending Unavailable Angel Ramsey Admitting Unavailable Abdoulaye Brothers Attending Unavailable Abdoulaye Brothers Admitting Unavailable Aashish Laguna MD Primary Care Provider AASHISH LAGUNA Primary Care Physician Unavail able Radha Harley Attending Unavailable Orzech, Radha X Admitting Unavailable OrRadha wayne Attending Unavailable Niru Galindo MD Unavailable Niru Oseguera MD Unavailable AASHISH LAGUNA Attending Unavailable AASHISH LAGUNA Attending Unavailable AASHISH LAGUNA Attending Unavailable AASHISH LAGUNA Attending Unavailable AASHISH LAGUNA Attending Unavailable AASHISH LAGUNA Attending Unavailable AASHISH LAGUNA Attending Unavailable AASHISH LAGUNA Attending Unavailable ANGEL RAMSEY Attending Unavailable Carol Boucher Unavailable [phone] Niru OSEGUERA Admitting Unavailable Niru OSEGUERA Attending Unavailable Niru OSEGUERA Referring Unavailable Allergies Allergy ClassificationReported Allergen(s)Allergy TypeDate of OnsetReaction(s) Facility (20 sources)Lisinopril; Translations: [Unknown]Drug Tcetugv70-75-8389Mmdvkwlu, Swelling (finding)[facility] (18 sources)Penicillins; Translations: [penicillins]Propensity to adverse reactions to lewx58-71-2145[place], Unknown (qualifier value)[place], [place] (13 sources)SulfanilamideDrug Xcxrubg55-22-1241Kckmp (See Comments)[place], [place] (20 sources)Amino AcidsDrug Cfhjggj80-40-0718[facility] (4 sources)Sulfonamides (Antibiotic); Translations: [sulfa drugs]Drug allergy Unknown (qualifier value)[facility] (1 source)Sulfonamides (Antibiotic)Drug allergy (disorder)40-79-1711[facility] (20 sources)AmoxicillinDrug Qfcdige23-61-2422[facility] Work Phone: (20 sources)Penicillin GDrug Kyojkhk83-98-1734[facility] (20 sources)SulfanilamideAllergy to kmrsqxdiu02-80-2450[facility] Medications Current Medications MedicationDrug Class(es)DatesSig (Normalized)Sig (Original)[id number] 200 actuat albuterol 0.09 mg/actuat metered dose inhaler (20 sources)beta2-Adrenergic AgonistStart: 88-94-3560gduv 2 puff(s) by inhalation every six hoursalbuterol HFA 90 mcg/act inhaler Indications: Restrictive lung disease Inhale 2 puffs every 6 (six)hours if needed for shortness of breath 18 g 11 02/05/2024 ActiveStart: 34-32-4421kred 2 puff(s) by inhalation every six hoursalbuterol HFA 90 mcg/act inhaler Inhale 2 puffs every 6 (six) hours if needed. 0 12/11/2022 Activeamiodarone hydrochloride 200 mg oral tablet (8 sources)AntiarrhythmicStart: 01-08-2022 End: 69-20-8628zigq 1 tablet by mouth once dailyamiodarone (CORDARONE) 200 MG tablet Take 1 tablet by mouth daily 30 tablet 01/08/2022 ActiveamLODIPine 5 mg oral tablet (6 sources)Dihydropyridine Calcium Channel BlockerStart: 91-93-0042ltcq 1 mg by mouth once dailyamLODIPine 5 mg Tab mg tab(s), Oral, Daily, Refills(s) 0 Start Date: 07/27/19 Status: OrderedStart: 75-65-5610ihsb 2 tablets by mouth once dailyamLODIPine (NORVASC) 5 MG tablet Take 2 tablets by mouth daily 60 tablet 11 05/07/2019 Activetake 1 tablet by mouth twice dailyamLODIPine (NORVASC) 5 MG tablet Take 5 mg by mouth 2 times daily 0 Activeapixaban 5 mg oral tablet (20 sources)Factor Xa InhibitorStart: 32-65-8700blcg 1 tablet by mouth in the morningEliquis 5 MG tablet Take 5 mg by mouth in the morning and 5 mg before bedtime. 04/17/2023 ActiveStart: 03-29-2021 End: 77-79-6679sbjr 1 tablet by mouth twice dailyELIQUIS 5 MG TABS tablet TAKE ONE TABLET BY MOUTH TWICE A DAY 60 tablet 5 03/21/2022 ActiveAscorbic Acid (6 sources)Vitamin CStart: 15-41-7205Seloyzh C Daily, Refills(s) 0 Start Date: 07/27/19 Status: Orderedtake 1 tablet by mouth twice dailyAscorbic Acid (VITAMIN C) 500 MG tablet Take 500 mg by mouth 2 times daily 0 ActiveAspir 81 (1 source)Start: 36-25-9907xhni 1 mg by mouth once dailyAspir 81 [...] tablet (20 sources)HMG-CoA Reductase InhibitorStart: 07-20-2018 End: 01-65-6499xymo 1 tablet by mouth once dailyatorvastatin (Lipitor) 10 MG tablet Indications: Hyperlipidemia, mixed Take 1 tablet (10 mg) by mouth Daily 90 tablet 1 01/25/2025 07/24/2025 ActiveB complex with C 20-folic acid (b hbynpds-O-mlqkg acid) 1 mg cap (2 sources)take 1 capsule by mouth twice dailyB complex with C 20-folic acid (b mjgcwyq-R-mjccx acid) 1 mg cap Take 1 capsule by mouth 2 (two) times a day . 0 ActiveCalcium Citrate (1 source)Start: 91-76-9574jhspvtf citrate Oral, BID, 315-250 mg, Refills(s) 0 [...] mouth 0 ActiveChelated Iron PO (1 source)Start: 57-12-0765Pxfelidt Iron PO Chelated Iron PO Start Date: 07/27/19 Status: Orderedcholecalciferol 0.05 mg oral capsule (9 sources)Vitamin DCholecalciferol (VITAMIN D3) 50 MCG (1999 UT) CAPS Take by mouth 0 Activeciprofloxacin 500 mg oral tablet (1 source)Quinolone AntimicrobialStart: 50-69-7134Bjeia 500 mg Tab See Instructions, Take 1 tab day prior to procedure and 1 tab day of procdure - aft erwards, # 2 tab(s), Refills(s) 0, Pharmacy: [id number], 149, cm, 06/21/25 13:36:00 EDT, Height/Length Dosing, 92.7, kg, 06/21/25 13:36:00 EDT, Weight Dosing Start Date: 06/21/25 Status: Ordered Quantity: 2.0 Unit: tab(s) Repeat number: 1digoxin 0.125 mg oral tablet (9 sources)Cardiac GlycosideStart: 35-89-4792ivry 1 tablet by mouth once daily digoxin (Lanoxin) 125 MCG tablet Take 125 mcg by mouth Daily 06/15/2025 Active Start: 08-21-2023 End: 46-04-8043dksk 1 tablet by mouth in the morningdigoxin (Lanoxin) 125 MCG tablet Take 125 mcg by mouth in the morning. 08/21/2023 05/04/2024 Discontinued (Therapy completed)24 hr dilTIAZem hydrochloride 120 mg extended release oral capsule (20 sources)Calcium Channel BlockerStart: 06-05-7292ddmr 1 capsule by mouth twice dailydilTIAZem (CARDIZEM CD) 120 MG extended release capsule Take 1 capsule by mouth 2 times daily 60 capsule 11 01/08/2022 ActiveStart: 05-01-2021 take 1 capsule by mouth once dailydilTIAZem (CARDIZEM CD) 120 MG extended release capsule Take 1 capsule by mouth daily 30 capsule 11005/01/2021 Active DilTIAZem (Eqv-Cardizem CD) 120 mg/24 hours oral capsule, extended release (1 source)Start: 19-00-1065dtwr 1 capsule by mouth every hourDilTIAZem (Eqv- Cardizem CD) 120 mg/24 hours oral capsule, extended release Refills(s) 0 Start Date:06/21/25 Status: Ordered Repeat number: 1gemfibrozil 600 mg oral tablet (20 sources)Peroxisome Proliferator Receptor alpha AgonistStart: 07-27-2019 End: 76-77-9544klxu 1 tablet by mouth in the morninggemfibrozil (Lopid) 600 MG tablet Indications: Hyperlipidemia, mixed Take 1 tablet (600 mg) by mouth in the morning and 1 tablet (600 mg) before bedtime. 180 tablet 1 01/25/2025 07/24/2025 Vzuomn02 hr isosorbide mononitrate 30 mg extended release oral tablet (20 sources)Nitrate VasodilatorStart: 29-03-0600twgt 1 tablet by mouth once dailyisosorbide mononitrate ER (Imdur) 30 MG 24 hr tablet Indications: Coronary artery disease involvingnative coronary artery of [place] heart without angina pectoris Take 1 tablet (30 mg) by mouth Daily30 tablet 1 02/05/2024 ActiveStart: 05-14-2019 End: 89-05-4093whzg 1 tablet by mouth twice dailyisosorbide mononitrate (IMDUR) 30 MG extended release tablet TAKE ONE TABLET BY MOUTH TWICE A DAY 60 tablet 11 10/24/2021 09/17/2022 Discontinuedlevothyroxine sodium 0.15 mg oral tablet (20 sources)l-ThyroxineStart: 92-81-0557ydwsnbjkqgclq 150 mcg (0.15 mg) Tab Refills(s) 0 Start Date: 10/14/25 Status: Ordered Repeat number: 1Start: 06-02-2025 End: 57-60-4730kubv 1 tablet by mouth before mealtimelevothyroxine (Synthroid, Levoxyl) 150 MCG tablet Indications: Acquired hypothyroidism Take 1 tablet (150 mcg) by mouth in the morning. Take before meals. 30 tablet 06/02/2025 Active Start: 12-30-2024 End: 43-53-5629jsir 1 tablet by mouth before mealtimelevothyroxine (Synthroid, Levoxyl) 150 MCG tablet Indications: Acquired hypothyroidism Take 1 tablet (150 mcg) by mouth in the morning. Take before meals. 30 tablet 04/20/2025 05/20/2025 ActiveStart: 05-04-2024 End: 05-09-2387yzdj 1 tablet by mouth before mealtimelevothyroxine (Synthroid, Levoxyl) 50 MCG tablet Indications: Acquired hypothyroidism (CMS/HCC) Take 1 tablet (50 mcg) by mouth in the morning. Take before meals. 90 tablet 1 10/26/2024 04/24/2025 ActiveStart: 08-13-2023 End: 73-34-8130sywc 1 tablet by mouth before mealtimelevothyroxine (Synthroid, Levoxyl) 75 MCG tablet Indications: Acquired hypothyroidism (CMS/HCC) Take 1 tablet (75 mcg) by mouth in the morning. Take before meals. 90 tablet 10/15/2023 Activetake 1 tablet by mouth before mealtimelevothyroxine (Synthroid, Levoxyl) 150 MCG tablet Take 150 mcg by mouth in the morning. Take beforemeals. Active liothyronine sodium 0.005 mg oral tablet (20 sources)l-TriiodothyronineStart: 27-97-3059fsulrqzvdwop (Cytomel) 5 MCG tablet Indications: ESS (euthyroid sick syndrome) Take 1 tablet in AM and 1 tablet in PM on an empty stomach. DUARTE; Sigma or Greenstone brands only 60 tablet 06/02/2025 ActiveStart: 07-17-2023 End: 25-63-7122bkdmljwyspsd (Cytomel) 5 MCG tablet Indications: ESS (euthyroid sick syndrome) Take 1 tablet in AM and 1 tablet in PM on an empty stomach. DUARTE; Sigma or Greenstone brands only 60 tablet 04/20/2025 ActiveStart: 47-27-4373qfqy 1 tablet by mouth once dailyliothyronine 5 [...] 80 mg/ml injection (8 sources)CorticosteroidStart: 05-18-2025 End: 94-30-4537dvhuagHOOIFCZgwfjn acetate (DEPO-Medrol) injection 80 mgStart: 05-18-2025 End: 22-25-0866slypxiHSJRRLRhbefo acetate (DEPO-Medrol) injection 80 mgStart: 05-18-2025 End: 25-49-845618 mg, Intra-articular, Once, On Fri05/18/25 at 1130, For 1 dose Start: 05-18-2025 End: 02-20-369101 mg, Intra-articular, Once, On Fri05/18/25 at 1130, For 1 dose Start: 05-18-2025 End: 28-98-4543ogjmgjFKVPJNTwscwu acetate (DEPO-Medrol) injection 80 mgStart: 05-18-2025 End: 35-91-3361ddohpvDQIMQQFkhmmk acetate (DEPO-Medrol) injection 80 mgStart: 05-18-2025 End: 75-88-920522 mg, Intra-articular, Once, On Fri05/18/25 at 1130, For 1 dose Start: 05-18-2025 End: 41-38-144284 mg, Intra-articular, Once, On Fri05/18/25 at 1130, For 1 dose metoprolol tartrate 50 mg oral tablet (20 sources)beta-Adrenergic BlockerStart: 99-22-6259ejio 2 tablets by mouth in the morningmetoprolol tartrate (Lopressor) 50 MG tablet Take 100 mg by mouth in the morning and 100 mg before bedtime. 04/12/2025 ActiveStart: 78-97-7870qwsx 1 tablet by mouth in the morningmetoprolol tartrate (Lopressor) 50 MG tablet Take 50 mg by mouth in the morning and 50 mg before bedtime. 04/17/2023 ActiveStart: 63-92-0743geve 1 tablet by mouth twice dailymetoprolol tartrate (LOPRESSOR) 50 MG tablet Take 1 tablet by mouth 2 times daily 60 tablet 11 09/17/2022 Active Start: 73-02-4956acdx 1 tablet by mouth twice dailyMetoprolol Tartrate 37.5 MG TABS TAKE ONE TABLET BY MOUTH TWICE A DAY 0 12/20/2021 ActiveStart: 07-27-2019 take 1 mg by mouth once dailymetoprolol 25 mg ER Tab mg tab(s), Oral, Daily, Refills(s) 0 Start Date: 07/27/19 Status: Ordered Repeat number: 1Start: 67-03-5209gngywvxgqd tartrate (LOPRESSOR) 25 MG tablet TAKE ONE TABLET TWICE A DAY 60 tablet 11 01/10/2020 Active End: 10-17-6726fvec 1 tablet by mouth in the morningmetoprolol tartrate (Lopressor) 100 MG tablet Take 100 mg by mouth in the morning and 100 mg before bedtime. 04/20/2025 Discontinued (Med list cleanup)24 hr mirabegron 50 mg extended release oral tablet (4 sources)beta3-Adrenergic Agonisttake 50 mg by mouth twice dailyMIRABEGRON ORAL Take 50 mg by mouth 2 (two) times a day . 0 ActiveMultiple Vitamins- Minerals ([facility]) TABS (11 sources)take 1 tablet by mouth twice dailyMultiple Vitamins-Minerals ([facility]) TABS Take by mouth 2 times daily 0 Activemultivitamin with minerals tablet (2 sources)take 1 tablet by mouth once dailymultivitamin with minerals tablet Take 1 tablet by mouth daily . 0 Activenitrofurantoin, macrocrystals 25 mg / nitrofurantoin, monohydrate 75 mg oral capsule (2 sources)Nitrofuran AntibacterialStart: 71-75-4695irbw 1 capsule by mouth in the morningnitrofurantoin, macrocrystal-monohydrate, (Macrobid) 100 MG capsule Take 100 mg by mouth in the morning and 100 mg before bedtime. 06/24/2025 Active nitroglycerin 0.4 mg sublingual tablet (18 sources)Nitrate VasodilatorStart: 06-30-2025 End: 49-50-7572mgyncaheoyswq (Nitrostat) 0.4 MG SL tablet Indications: Coronary artery disease involving [place] coronary artery of [place] heart without angina pectoris Place 1 tablet (0.4 mg) under the tongue every5 (five) minutes if needed for chest pain 25 tablet 06/30/2025 07/30/2025 ActiveStart: 07-27-2019 nitroglycerin 0.4 mg sublingual Tab 0.4 mg = 1 tab(s), SubLingual, q5min, PRN for chest pain, # 100tab(s), Refills(s) 0 Start Date: 07/27/19 Status: Ordered Quantity: 100.0 Unit: tab(s) Repeat number: 1Start: 05-17-2019 End: 03-27-1571svijdRFMCJWTZ (NITROSTAT) 0.[address] 1 tablet under the tongue every 5 minutes as needed for Chest pain 25 tablet 3 05/17/2019 Activenystatin 100 unt/mg / triamcinolone acetonide 0.001 mg/mg topical ointment (5 sources)Polyene Antifungal, CorticosteroidStart: 69-71-9687rxmfndlv- triamcinolone (Mycolog II) ointment Indications: Chronic vulvitis Apply topically 2 (two) times a day 30 g 08/23/2024 Activepotassium chloride 10 meq extended release oral tablet (20 sources)Start: 12-27-2024 End: 40-76-0087wlta 1 tablet by mouth every twelve hourspotassium chloride CR (Klor-Con) 10 MEQ ER tablet Take 10 mEq by mouth every 12 (twelve) hours 12/2712/27/2024 Activetake 1 tablet by mouth every twelve hourspotassium chloride CR (Klor-Con) 10 MEQ ER tablet Take 10 mEq by mouth every 12 (twelve) hours. ActiveQUEtiapine 25 mg oral tablet (20 sources)Atypical AntipsychoticStart: 12-27-2024 End: 22-79-0302MXYmfdxxio (SEROquel) 25 MG tablet Indications: Chronic post- traumatic stress disorder (PTSD) (CMS/HCC) 1/2 tablet at bedtime 15 tablet 5 12/27/2024 12/27/2024 ActiveStart: 11-11-2023 End: 36-83-0798UUSskuwnea (SEROquel) 25 MG tablet Indications: Chronic post- traumatic stress disorder (PTSD) (CMS/HCC) 1/2 tablet at bedtime 15 tablet 5 05/12/2024 ActiveStart: 10-15-2023 End: 34-52-6523NRBnlguvhn (SEROquel) 25 MG tablet Indications: Chronic post- traumatic stress disorder (PTSD) (CMS/HCC) 1/2 to 2 tablets at bedtime 60 tablet 0 10/15/2023 10/22/2023 Discontinued (Reorder)Maddy jerez (1 source)Start: 56-06-6152G[facility]jkMart[facility] Start Date: 07/27/19 Status: Orderedthyroid (skilled nursing) 30 mg oral tablet (6 sources)Start: 13-82-1766aiym 1 tablet by mouth twice dailyNP THYROID 30 MG tablet TAKE ONE TABLET BY MOUTH TWICE A DAY ON AN EMPTY STOMACH 0 12/20/2021 Active Completed/Discontinued Medications MedicationDrug Class(es)DatesSig (Normalized)Sig (Original)allopurinol 300 mg oral tablet (20 sources)Xanthine Oxidase InhibitorStart: 05-12-2024 End: 28-20-0894doho 1 tablet by mouth once dailyallopurinol (Zyloprim) 300 MG tablet Indications: Hyperuricemia Take 1 tablet (300 mg) by mouth Daily 90 tablet 1 04/20/2025 06/30/2025 Discontinued (Reorder)Start: 08-13-2023 End: 60-37-6517qtoi 1 tablet by mouth once dailyallopurinol (Zyloprim) 100 MG tablet Indications: Hyperuricemia Take 1 tablet (100 mg) by mouth Daily 30 tablet 05/12/2024 10/26/2024 Discontinued (Therapy completed)12 hr buPROPion hydrochloride 150 mg extended release oral tablet (20 sources)AminoketoneStart: 07-17-2023 End: 08-99-3327ajgr 1 tablet by mouth every twelve hours in the morningbuPROPion SR (Wellbutrin SR) 150 MG 12 hr tablet Indications: Recurrent major depressive disorder, in partial remission Take 1 tablet (150 mg) by mouth in the morning and 1 tablet (150 mg) before bedtime. 180 tablet 1 11/09/2024 06/30/2025 Discontinued (Reorder)Start: 44-38-9472ubsr 1 mg by mouth twice dailybuPROPion 150 mg ER Tab mg tab(s), Oral, BID, Refills(s) 0 Start Date: 07/27/19 Status: Ordered Repeat number: 1take 1 tablet by mouth twice dailybuPROPion (WELLBUTRIN XL) 150 MG 24 hr tablet Take 150 mg by mouth 2 (two) times a day . 0 Active colchicine 0.6 mg oral tablet (17 sources)Start: 05-12-2024 End: 89-30-4762okisukcqdy 0.6 MG tablet Indications: Acute idiopathic gout involving toe, unspecified laterality initial dose of 1 tablet followed by 1 tablet every 2 hours until the gouty pain is relieved, gastrointestinal symptoms develop, or the maximum dose is reached. Hold metformin while taking 4 tablet 05/12/2024 10/26/2024 Discontinued (Therapy completed)Start: 04-28-2024 End: 06-21-4810sqnezvhial 0.6 MG tablet Indications: Acute idiopathic gout involving toe, unspecified laterality initial dose of 1 tablet followed by 1 tablet every 2 hours until the gouty pain is relieved, gastrointestinal symptoms develop, or the maximum dose is reached. Hold metformin while taking 4 tablet 04/28/2024 05/04/2024 Discontinued (Therapy completed)Start: 10-18-2022 End: 96-72-0959ossqvzpbbr 0.6 MG tablet Take 0.6 mg by mouth if needed. 10/18/2022 04/28/2024 Discontinued (Reorder)furosemide 20 mg oral tablet (20 sources)Loop DiureticStart: 07-12-2021 End: 63-91-9479euwt 1 tablet by mouth in the morningfurosemide (Lasix) 20 MG tablet Indications: Pulmonary hypertension (HCC) Take 1 tablet (20 mg) by mouth in the morning. 90 tablet 1 01/25/2025 06/30/2025 Discontinued (Reorder) metFORMIN hydrochloride 1000 mg oral tablet (20 sources)BiguanideStart: 07-27-2019 End: 35-39-3076zpvd 1 tablet by mouth in the morningmetFORMIN (Glucophage) 1000 MG tablet Indications: Type 2 diabetes mellitus with stage 3b chronic kidney disease, without long-term current use of insulin (HCC) Take 1 tablet (1,000 mg) by mouth in the morning and 1 tablet (1,000 mg) in the evening. Take with meals. 180 tablet 1 01/25/2025 06/30/2025 Discontinued (Reorder) End: 78-88-3509kzlg 1 tablet by mouth twice daily at mealtimemetFORMIN (GLUCOPHAGE) 1000 MG tablet Take 1,000 mg by mouth 2 times daily (with meals) 0 Active End: 37-58-3469gkqa 1 tablet by mouth twice dailymetFORMIN (GLUMETZA) 1000 MG (MOD) 24 hr tablet Take 1,000 mg by mouth 2 (two) times a day . 0 05/19/2019 Discontinued (Stop Taking at Discharge)ondansetron (ZOFRAN-ODT) disintegrating tablet 4 mg (1 source)Start: 05-19-2019 End: 29-36-5391jjzl 1 tablet by mouth every six hours as neededondansetron (ZOFRAN-ODT) disintegrating tablet 4 mg100 ml propofol 10 mg/ml injection (2 sources)General AnestheticStart: 02-12-2022 End: 69-74-8182npdwzaxq injectionStart: 06-11-2021 End: 87-89-8407hizgybfa injectionregadenoson (LEXISCAN) injection 0.4 mg (1 source)Start: 09-17-2022 End: 80-79-8595szcvyrwdrjr (LEXISCAN) injection 0.4 mg5 ml sodium chloride 9 mg/ml injection (6 sources)Start: 09-17-2022 End: 65-02-6757vriqiu chloride flush 0.9 % injection 5-40 mLStart: 02-12-2022 End: 55-99-0856qtwcrn chloride 0.45 % bolusStart: .45 % sodium chloride infusionStart: 05-19-2019 End: 86-12-9054643 mL, Intravenous, at 937.5 mL/hr, As needed, IF patient heart rate is less than 50 BPM and Systolic BP is less than 90 mmHG, notify Wheel Shop Supervisor, place patient in Trendelenberg, andgive 0.9% NaCl bolus, Starting Fri05/19/19 at 0906, For 1 doseStart: 05-19-2019 End: 17-35-2308swxpqi chloride 0.9% (NS)technetium sestamibi (CARDIOLITE) injection 10 millicurie (1 source)Start: 09-17-2022 End: 82-52-6989raagtwgisj sestamibi (CARDIOLITE) injection 10 millicurie technetium sestamibi (CARDIOLITE) injection 30 millicurie (1 source)Start: 09-17-2022 End: 32-61-9380shsrisswon sestamibi (CARDIOLITE) injection 30 millicurie Problems Active Problems Problem ClassificationProblemDateDocumented DateEpisodic/ChronicAllergic reactions (1 source)Chronic dermatitis; Translations: [Dermatitis, unspecified]08-23-2024 EpisodicAnxiety disorders (20 sources)Post-traumatic stress disorder, unspecified; Translations: [Chronic post-traumatic stress disorder]Onset: 658049-25-6357WjwmhtrQusymdvc of urinary tract (2 sources)Kidney auwlh17-41-4555ZqocoklsVzlslac dysrhythmias (20 sources)Atrial fibrillation; Translations: [Unspecified atrial fibrillation] Onset: 54-36-8372WrneujcCxnfmuu kidney disease (20 sources)Chronic kidney disease stage 3A ; Translations: [Stage 3a chronic kidney disease (HCC)]Onset: 209160-08-9007ZrxgziiMfysuwz kidney disease (1 source)Chronic kidney disease; Translations: [CHRONIC KIDNEY DISEASE STAGE 3A]Onset: 83-89-1535Znyzqatxfbaft of surgical procedures or medical care (2 sources)Drug therapy finding; Translations: [Unspecified adverse effect of drug or medicament, initial encounter]38-01-8629PvzuybbbPleqelpxxj heart failure; nonhypertensive (1 source)Heart failure, unspecified; Translations: [HEART FAILURE UNSPECIFIED] Onset: 40-47-2083WdednsuJxmecwke atherosclerosis and other heart disease (20 sources)Coronary arteriosclerosis; Translations: [Atherosclerotic heart disease of [place] coronary artery without angina pectoris]Onset: 05-14-2023 61-32-5555DaaprxaYpgnogvi mellitus with complications (20 sources)Microalbuminuric diabetic nephropathy; Translations: [Type 2 diabetes mellitus with diabetic nephropathy]Onset: hronic Diabetes mellitus without complication (20 sources)Diabetes mellitus without complication; Translations: [Type 2 diabetes mellitus without complications]Onset: 483857-41-6675Dmbadee Disorders of lipid metabolism (20 sources)Pure hypercholesterolemia, unspecified; Translations: [Mixed hyperlipidemia]Onset: 484490-58-9342FiaqwixKeijotdcg hypertension (20 sources)Hypertensive disorder; Translations: [Essential (primary) hypertension]Onset: 699220-69-8401NskiyeeWusmtefpjdali symptoms and ill- defined conditions (20 sources)Urge incontinence; Translations: [Stress incontinence (female) (male)]Onset: 78-71-0994PbpyvrdHdhsvhlpgzpiq symptoms and ill-defined conditions (9 sources)Incomplete emptying of bladder; Translations: [Increased frequency of urination]Onset: 634697-58-7320DxmvsancLvik and other crystal arthropathies (7 sources)Primary gout; Translations: [Idiopathic gout, unspecified ankle and foot]87-04-5061UrksswxNgpljizwfagc with complications and secondary hypertension (19 sources)Hypertensive renal disease; Translations: [Hypertensive chronic kidney disease with stage 1 throughstage 4 chronic kidney disease, or unspecified chronic kidney disease]Onset: 11-09-2024 Resolved: 756287-38-4259YyvwpspSsabsmalxqyy diseases of female pelvic organs (1 source)Chronic vulvitis; Translations: [Subacute and chronic vulvitis] 24-13-0428RjhqyodlTvlesoh and fatigue (20 sources)Chronic fatigue, unspecified; Translations: [Chronic fatigue syndrome]Onset: 11-04-2022 Resolved: 04-15-0994EqrkbbvUmhdivhwds disorders (20 sources)Atrophic vaginitis; Translations: [Postmenopausal atrophic vaginitis]Onset: 864597-54-4800MhccrbpBugs disorders (20 sources)Recurrent major depression in partial remission; Translations: [Major depressive disorder, recurrent, in partial remission]Onset: 05-14-2023 37-97-1602JqgwdxwJjzkgodgnizo breast conditions (20 sources)Fibrocystic disease of breast; Translations: [Diffuse cystic mastopathy of unspecified breast]Onset: 384415-75-7461GoxzdgdAncvmgxxftd chest pain (15 sources)Chest pain; Translations: [Chest pain, unspecified]Onset: 12-13-2016 93-28-6576NdrvgkzkDjohmvprndo deficiencies (12 sources)Vitamin D deficiency; Translations: [Vitamin D deficiency, unspecified]Onset: 886930-70-9442RutdxutHgwxaegfyeamoj (20 sources)Primary osteoarthritis, right ankle and foot; Translations: [Unspecified osteoarthritis, unspecified site]Onset: hronic Other aftercare (1 source)Other half-way (current) drug therapy; Translations: [OTH [facility] CURRENT DRUG THERAPY]Onset: 20-57-4901OffzdoraRjtvb aftercare (1 source)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; Translations: [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 USE ORAL HYPOGLYCEMIC DX]Onset: 17-65-5422LwlscuudAcrps aftercare (2 sources)Patient encounter status; Translations: [Encounter for follow-up examination after completed treatment for conditions other than malignant neoplasm]54-35-3411RhleojqyXfsbu and ill-defined heart disease (20 sources)Bilateral enlargement of atria; Translations: [Cardiomegaly]Onset: 737618-82-7599FkjaigwWbjgv connective tissue disease (3 sources)Pain in right foot; Translations: [PAIN IN RIGHT FOOT]Onset: 99-74-1762DdvjdyahWhyuj diseases of bladder and urethra (2 sources)Detrusor overactivity; Translations: [Overactive bladder]Onset: 91-62-8621UknkjofCdnxd diseases of bladder and urethra (4 sources)Overactive tazveqh07-47-5302ZjcpsklMplih ear and sense organ disorders (20 sources)Hearing loss; Translations: [Unspecified hearing loss, unspecified ear]Onset: 804290-61-5622ZcagfpeKdodc hereditary and degenerative nervous system conditions (20 sources)Mild cognitive impairment, so stated; Translations: [Mild cognitive impairment, so stated]Onset: 963240-09-4403HlzhmaqGpnke injuries and conditions due to external causes (1 source)History of falling; Translations: [HISTORY OF FALLING]Onset: 76-92-5329WozcfqifZyqvy liver diseases (20 sources)Fatty (change of) liver, not elsewhere classified; Translations: [Other chronic nonalcoholic liver disease]Onset: 360675-32-5551Sphlpef Other lower respiratory disease (2 sources)Interstitial lung disease; Translations: [Interstitial pulmonary disease, unspecified]74-49-2803YpwgtznOuecp non-traumatic joint disorders (4 sources)Pain in right ankle and joints of right foot; Translations: [PAIN IN RIGHT ANKLE]Onset: 09-23-1972KfqxhpssQaplg non-traumatic joint disorders (2 sources)Pain in right knee; Translations: [Pain in joint, lower leg] 99-15-5564VdoaamfbCyalf nutritional; endocrine; and metabolic disorders (1 source)Morbid (severe) obesity due to excess calories; Translations: [MORBID SEVERE OBES D/T EXCESS NAGI]Onset: 76-68-1769GuxhgigGytcp nutritional; endocrine; and metabolic disorders (1 source)Body mass index (BMI) 40.0-44.9, adult; Translations: [BODY MASS INDEX BMI 40.0-44.9 ADULT]Onset: 53-78-4141CtnifaxPrddw nutritional; endocrine; and metabolic disorders (20 sources)Morbid obesity; Translations: [Morbid (severe) obesity due to excess calories]Onset: 385258-07-7984NzbdbobOoqvm nutritional; endocrine; and metabolic disorders (20 sources)Body mass index 40+ - severely obese; Translations: [Body mass index (BMI) 40.0-44.9, adult]Onset: 323753-78-4463QgvsokpRchgl nutritional; endocrine; and metabolic disorders (8 sources)Hyperuricemia; Translations: [Hyperuricemia without signs of inflammatory arthritis and tophaceous disease]78-96-4969KjbhmcieDygkw conditions (1 source)Omphalitis; Translations: [Omphalitis without hemorrhage]08-23-2024 EpisodicOther screening for suspected conditions (not mental disorders or infectious disease) (6 sources)Electrocardiogram abnormal; Translations: [Abnormal electrocardiogram [ECG] [EKG]]Onset: 11-31-3952QniwuivmZgxmzonw of female genital organs (20 sources)Incomplete uterovaginal prolapse; Translations: [Incomplete uterovaginal prolapse]Onset: 897770-80-2307CwulaerIetackgzo heart disease (20 sources)Pulmonary hypertension; Translations: [Pulmonary hypertension, unspecified]Onset: 172405-94-4883DrsqytiVvwwkoeyyuz; intervertebral disc disorders; other back problems (20 sources)Degeneration of thoracic intervertebral disc; Translations: [Other intervertebral disc degeneration, thoracic region]Onset: ChronicThyroid disorders (20 sources)Other specified hypothyroidism; Translations: [Acquired hypothyroidism]Onset: 835024-22-3861UkroranNxqlhufwwrwy (2 sources)Drug therapy twrefhf31-66-3601 Past or Other Problems Problem ClassificationProblemDateDocumented DateEpisodic/ChronicCoronary atherosclerosis and other heart disease (20 sources)Patient post percutaneous transluminal coronary angioplasty; Translations: [Coronary angioplasty status]Onset: 455114-30-7890Jfmlqeeu Deficiency and other anemia (20 sources)Anemia; Translations: [Anemia, unspecified]Onset: 62-37-1244Ylkdvfsd Deficiency and other anemia (2 sources)Iron deficiency anemia; Translations: [Iron deficiency anemia, unspecified]87-89-6397EpeoknssKbkur valve disorders (20 sources)Heart murmur; Translations: [Cardiac murmur, unspecified]Onset: 298924-48-8058RuboruvfThde disorders (20 sources)Mood disordersOnset: 12-02-2023 Resolved: Other aftercare (1 source)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; Translations: [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 TECHNICIAN CURRNT USE ANTICOAGULANTS]Onset: 59-80-1265IvzatffmFawfl diseases of kidney and ureters (1 source)Renal impairment; Translations: [Renal insufficiency]EpisodicOther diseases of veins and lymphatics (20 sources)Venous insufficiency of leg; Translations: [Venous insufficiency (chronic) (peripheral)]Onset: 437485-79-1187RurghwvdRfmzv lower respiratory disease (13 sources)Dyspnea; Translations: [Shortness of breath]Onset: 12-13-2016 15-38-8709CyvwuetoWuhzv lower respiratory disease (20 sources)Restrictive lung disease; Translations: [Other disorders of lung] Onset: 473915-43-2140SiyuihjrJwtuk lower respiratory disease (2 sources)Dyspnea on exertion; Translations: [Other forms of dyspnea]05-04-2024 EpisodicSpondylosis; intervertebral disc disorders; other back problems (3 sources)Pain in thoracic spine; Translations: [PAIN IN THORACIC SPINE]Onset: 68-92-8652OehawjduZeybsfr disorders (20 sources)Sick-euthyroid syndrome; Translations: [Sick-euthyroid syndrome] Onset: 518218-07-8512CjftdlwkVwdkufl tract infections (1 source)Urinary tract infection, site not specified; Translations: [UTI SITE NOT SPECIFIED]Onset: 33-90-4127Sgxfnosm Results Test NameValueInterpretationReference RangeFacilityInpatient Patient Summaryon 51-13-3393Ymdgdhqsu Patient SummaryInpatient Patient Summary [address] [address] Clinical Summary Person Information Name: PATRICIA BLAKE Age: 75 Years : 1950 Sex: Female PCP: AASHISH LAGUNA MD Marital Status: Single Race: White Ethnicity: Non- or Language: Congolese Visit Id: Visit Reason: URINARY INCONTENENCE Speciality: Acuity: Enc Type: Outpatient Med Service: Surgery Arrival: 07/07/2025 08:57:46 Discharge: Dispo Type: Address: [facility] 09/09 [facility] [id number] Provider Notes: Diagnosis: Problems Active Morbid obesity [...] Follow up: With: Address: When: Niru OSEGUERA [address] [place], [place] [address]Bj, [address], [place] [address] Business (1) Comments: As we discussed, there [...] Education Information: EU - Cystoscopy Discharge Instructions (Custom)[facility] Main OR Intraoperative Recordon 87-98-3904Oxiz OR Intraoperative RecordMain OR Intraoperative Record IntraOp Document Type FTURO Summary Primary Physician: Niru OSEGUERA MD Finalized Date/Time: 07/07/25 09:36:31 Pt. Name: PATRICIA BLAKE Maria C/Sex: 1950 Female Med Rec #: [id number] Physician: Niru OSEGUERA MD Financial #: [id number] Pt. Type: O Room/Bed: / Admit/Disch: 07/07/25 [...] Kimberly A Role Performed Surgeon - Primary Civil Estimator - Primary Scrub - Primary Time In [...] Prep Agents Betadine Solution Skin. Condition Intact, Hodgen, Warm, & Description unchanged Dry Additional None [...] Signatures Signed By: Elizabeth Saucedo Ii 07/07/25 09:36NoGuernsey Memorial HospitalMain OR Preoperative Recordon 11-20-1370Ppzv OR Preoperative RecordMain OR Preoperative Record Holding Area Document Type FTURO Summary Primary Physician: Niru OSEGUERA MD Finalized Date/Time: 07/07/25 09:23:40 Pt. Name: PATRICIA BLAKE /Sex: 1950 Female Med Rec #: [id number] Physician: Niru OSEGUERA MD Financial #: [id number] Pt. Type: O Room/Bed: / Admit/Disch: 07/07/25 [...] Signatures Signed By: Elizabeth Saucedo Ii 07/07/25 09:23NoGuernsey Memorial HospitalOperative Reporton 83-03-3110Rqgljiukh ReportOperative Report Patient: PATRICIA BLAKE Age: 75 years Sex: Female : 1950 Associated Diagnoses: None Author: Niru OSEGUERA MD Procedure Operative Information Details: Date/ Time: 07/07/2025 09:38:00. Pre-Op Dx: Mixed stress and urge incontinence (BAW89-QQ N39.46, Working, Medical), OAB (overactive bladder) (WDW59-HN N32.81, Working, Medical). Post-Op Dx: Same. Anesthesia [...] Will get her onschedule for BOTOX, 100 u.[facility] HospitalComment on above:Result Comment: Electronically Signed By: Niru OSEGUERA MD\.br\Date and Time Signed: 07/07/25 09:39 EDTOutpatient Surgery Discharge Instructionon 20-59-4639Ljgwgvzxth Surgery Discharge Instruction Outpatient Surgery Discharge Instruction [address] [address] Patient Discharge Instructions PERSON INFORMATION [...] Follow up: With: Address: When: Niru OSEGUERA [address] [place] [address], [address], [address] [address] [facility] (1) Comments: As we discussed, there is [...] Date You may receive a survey from [employer] asking you to rate your care experience. Your feedback is important and will help us understand what we do well and how we can improve the quality of care we provide to you, your loved ones and our community. It???s an honor to serve you. [facility] NormalMercy HealthH&P Updateon 07-06-2025H&P UpdateH&P Update Patient: PATRICIA BLAKE [...] proceed.. Health Status Procedure history: Cystoscopy/Botox 100 (16111681) on 02/22/2021 at 70 Years. Cystoscopy (88739682) on 04/24/1998 at 48 Years. Placement of stent in cardiac conduit ([id number]). Comments: 07/27/2019 10:09 EST - Page Lisette ADAMS 11/2016 Cholecystectomy (62076925). Foot (74610749). Breast reduction (271551266). Cataracts (9343808655). Social History Social & Psychosocial Habits Tobacco [...] list: All Problems Diabetes / SNOMED CT 057242977 / Confirmed Hypertension / SNOMED CT 1839732041 / Confirmed Nephrolithiasis / SNOMED CT 851118019 / Confirmed Frequent urination / SNOMED CT 852016040 / Confirmed Urinary urgency / SNOMED CT 262596920 / Confirmed Nocturia / SNOMED CT 997295150 / Confirmed Urge incontinence / SNOMED CT 673912137 / Confirmed Stress incontinence / SNOMED CT 835418195 / Confirmed Overactive bladder / SNOMED CT 8479354040 / Confirmed Anticoagulated / SNOMED CT 225583545 / Confirmed Mixed incontinence / SNOMED CT 81587072 / Confirmed OAB (overactive bladder) / SNOMED CT 2179446869 / Confirmed Incomplete bladder emptying / SNOMED CT 409461784 / Confirmed Morbid obesity with BMI of 40.0-44.9, adult / IMO 31661094 / Possible Problem added automatically by Discern Expert based on clinical documentation Canceled: Weak urine stream / SNOMED CT 913077765, Active Problems (14) Anticoagulated Diabetes Frequent urination Hypertension Incomplete bladder emptying Mixed incontinence Morbid obesity with BMI of 40.0-44.9, adult Nephrolithiasis Nocturia OAB (overactive bladder) Overactive bladder Stress incontinence Urge incontinence Urinary urgencyNoGuernsey Memorial HospitalComment on above:Result Comment: Electronically Signed By: TIN GASCA, Niru Joy\Date and Time Signed: 07/06/25 18:08 EDTC Urineon 71-21-6651Ogcuvyaj identified Cx Nom (U)Microbiology PROCEDURE: Urine Culture [...] Locations R1: This test was performed at: [facility], [address] [place] [address], [address]- , , UsnmaiQfswdcProvidence HospitalComment on above:Performed By: #### [id number] #### [facility] [address] [place] [address]Xwsmcchpub Visit Summaryon 95-07-6005Mfkhtemeic Visit Summary Ambulatory Visit Summary PATRICIA BLAKE [...] Follow-Up Appointments Friday 1:00 PM EDT Where: [facility] 2024 9:30 AM EDT Where: [facility] Medications What How Much [...] signed up for this yet, please contact [employer] at [phone] to get signed up today. Language Information Language assistance services are available as needed. [facility] Center[facility] Office/Clinic Noteon 20-05-1549Knpirgc Office/Clinic NoteUrology Office/Clinic Note Chief Complaint re-estabish [...] with voice recognition artificial intelligence software, specifically Varolii, Re5ult and or VIRxSYS. Substitutions may have occurred due to the [...] Will order Local anesthesia. -schedule cysto Ordered: 88064 Measure Post Void residual urine and/or bladder capacity by US- non-imaging Urine Culture Urnls Dip Stick Auto w/o Microscopy POC 41582 2. Mixed incontinence (N39.46: Mixed incontinence) see [...] Sanchez, URL [address] [address]- Additional Instructions: cysto Patient Education Urinary Incontinence [...] Dipstick: Negative (06/21/ (more content not included)...Normal Mercy HealthComment on above:Result Comment: Electronically Signed By: SUNIL Harley APRN, [place] X\.br\Date and Time Signed: 06/21/25 14:18 EDTHEMOGLOBIN A1con 33-95-5255TfZ1n (Bld) [Mass fraction]6.3 %High<5.7Quest DiagnosticsComment on above:Result [...] children.Performed By: #### 496 #### [facility] [address], [address] [place] [phone] Infertility Medical Assistant: Jaylon Bagley MDT3, FREEniles 49-74-9810Kuwl T3 [Mass/Vol]3.8 pg/mLNormal2.3-4.2Quest DiagnosticsComment on above:Performed By: #### 039, 02998, 866 #### [facility] [address], [address] [place] [address] Infertility Medical Assistant: Jaylon Bagley MDT4, FREE 59-44-4437Fqrc T4 [Mass/Vol]1.8 ng/dLNormal0.8-1.8Quest DiagnosticsComment on above:Performed By: #### 899, 62069, 866 #### [facility] [address], [address] [place] [address] Infertility Medical Assistant: Jaylon Bagley MDTSNatividad Medical Center 01-39-0327AHC Qn0.03 m[IU]/LLow0.40-4.50 [facility] DiagnosticsComment on above:Performed By: #### 899, 52133, 866 #### [facility] [address], [address] [place] [address] Infertility Medical Assistant: Jaylon Bagley MDT3 REVERSE, LC/MS/MSon 53-94-4556O4 REVERSE, LC/MS/MS14 ng/dLNormal8-25Quest DiagnosticsComment on above:Result Comment: This test was developed and its analytical performance characteristics have been determined by [employer] [place], [place]. It has not been cleared or approved by the U.S. Food and Drug Administration. This assay has been validated pursuant to the CLIA regulations and is used for clinical purposes.Performed By: #### 27683 #### [facility] [address] [facility] [place], [place] Infertility Medical Assistant: Gian Collins M.D.,PhD #### 899, 866, 859, 23191 #### [facility] [address], [address] [place] [address] Infertility Medical Assistant: Jaylon Bagley MDT3, FREE 11-46-2083Fstn T3 [Mass/Vol]3.8 pg/mLNormal2.3-4.2Quest DiagnosticsComment on above:Performed By: #### 02869 #### [facility] [place] [address] Infertility Medical Assistant: Carmita Alcala #### 6517, 496, 4800 #### [facility] [address], [address] [place] [address] Infertility Medical Assistant: Jaylon Bagley MDT3, TOTALon 39-45-4872A0, LRZQW839 ng/dLNormal 76-181Quest DiagnosticsComment on above:Performed By: #### 96650 #### [facility] [address] [facility] [place], [place] Infertility Medical Assistant: Gian Collins M.D.,PhD #### 899, 866, 859, 75319 #### [facility] of [address], [address] [place] [address] Infertility Medical Assistant: Jaylon Bagley MDT4, FREEon 09-86-3048Vsuw T4 [Mass/Vol]1.0 ng/dLNormal0.8-1.8Quest DiagnosticsComment on above:Performed By: #### 41604 #### [facility] [address] [place] [address] Infertility Medical Assistant: Carmita Alcala #### 6517, 496, 1090 #### [facility] of [address], [address] [place] [address] Infertility Medical Assistant: Jaylon CABANjessica 38-65-4242CXF Qn5.45 m[IU]/LHigh 0.40-4.50Quest DiagnosticsComment on above:Performed By: #### 24511 #### [facility] [address] [place] [address] Infertility Medical Assistant: Carmita Alcala #### 6517, 496, 2460 #### [facility] of [address], [address] [place] [address] Infertility Medical Assistant: Jaylon Bagley MDALBUMIN, RANDOM URINE W/CREATININEon 26-44-0137XGBFINS, URINE1.3 mg/dLNormalSee Note:Quest DiagnosticsComment on above:Result Comment: Reference Range: Reference Range Not establishedPerformed By: #### 70512 #### [facility] [address] [place] [address] Infertility Medical Assistant: Carmita Alcala #### 6517, 496, 4410 #### [facility] [address], [address] [place] [address] Infertility Medical Assistant: Jaylon Bagley MDALBUMIN/CREATININE RATIO, RANDOM URINE35 mg/g [...] be within a diagnostic category.Performed By: #### 22069 #### [facility] [address] [place] [address] Infertility Medical Assistant: Carmita Alcala #### 6517, 496, 7000 #### [facility] [address], [address] [place] [address] Infertility Medical Assistant: Jaylon GIORDANOreatinine (U) [Mass/Vol]37 mg/fCKuqzjh21-941 Quest DiagnosticsComment on above:Performed By: #### 06023 #### [facility] [address] [place] [address] Infertility Medical Assistant: Carmita Alcala #### 6517, 496, 4560 #### [facility] [address], [address] [place] [address] Infertility Medical Assistant: Jaylon GIORDANOOMPREHENSIVE METABOLIC PANELon 01-14-2025 Albumin [Mass/Vol]4.2 g/dLNormal3.6-5.1Quest DiagnosticsComment on above: Performed By: #### 65833 #### [facility] [address] Infertility Medical Assistant: Carmita Alcala #### 6517, 496, 7600 #### [facility] [address], [address] [place] [address] Infertility Medical Assistant: Jaylon Bagley MDAlbumin/Globulin [Mass ratio]1.6 {ratio}Normal 1.0-2.5Quest DiagnosticsComment on above:Performed By: #### 73456 #### [facility] [address] [place], [place] [address] Infertility Medical Assistant: Carmita Alcala #### 6517, 496, 7600 #### [facility] [address], [address] [place] [address] Infertility Medical Assistant: Jaylon Bagley MDALP [Catalytic activity/Vol]64 U/UBursfl91-062 Quest DiagnosticsComment on above:Performed By: #### 85370 #### [facility]-[place] [address] Infertility Medical Assistant: Carmita Alcala #### 6517, 496, 4780 #### [facility] [address], [address] [place] [address] Infertility Medical Assistant: Jaylon Bagley MDALT [Catalytic activity/Vol]24 U/LNormal6-29 Quest DiagnosticsComment on above:Performed By: #### 92903 #### [facility]-[address] Infertility Medical Assistant: Carmita Alcala #### 6517, 496, 7600 #### [facility] [address], [address] [place] [address] Infertility Medical Assistant: Jaylon Bagley MDAST [Catalytic activity/Vol]33 U/IVwputi36-65 Quest DiagnosticsComment on above:Performed By: #### 99912 #### [facility] [address] [place], [place] [address] Infertility Medical Assistant: Carmita Alcala #### 6517, 496, 7600 #### [facility] [address] , [address] [place] [address] Infertility Medical Assistant: Jaylon Bagley MDBilirubin [Mass/Vol]0.4 mg/dLNormal0.2-1.2 Quest DiagnosticsComment on above:Performed By: #### 36451 #### [facility] [address] [place] [address] Infertility Medical Assistant: Carmita Alcala #### 6517, 496, 1780 #### [facility] [address], [address] [place] [address] Infertility Medical Assistant: Jaylon Bagley MDBUN/CREATININE RATIOSEE NOTE:Normal6-Quest DiagnosticsComment on above:Result Comment: Not Reported: BUN and Creatinine are within reference range.Performed By: #### 26326 #### [facility] [address] [place] [address] Infertility Medical Assistant: Carmita Alcala #### 6517, 496, 0320 #### [facility] [address], [address] [place] [address] Infertility Medical Assistant: Jaylon Bagley MDCalcium [Mass/Vol]10.2 mg/dLNormal8.6-10.4 Quest DiagnosticsComment on above:Performed By: #### 09691 #### [facility] [address] [place], [place] [address] Infertility Medical Assistant: Carmita Alcala #### 6517, 496, 4700 #### [facility] [address], [address] [place] [address] Infertility Medical Assistant: Jaylon Bagley MDChloride [Moles/Vol]105 mmol/BKdlavu41-294 Quest DiagnosticsComment on above:Performed By: #### 96507 #### [facility] [address] [place] [address] Infertility Medical Assistant: Carmita Alcala #### 6517, 496, 7600 #### [facility] [address], [address] [place] [address] Infertility Medical Assistant: Jaylon Bagley MDCO2 [Moles/Vol]27 mmol/GLextbk40-30Bzerd DiagnosticsComment on above:Performed By: #### 46400 #### [facility] [address] [place] [address] Infertility Medical Assistant: Carmita Alcala #### 6517, 496, 3750 #### [facility] [address], [address] [place] [address] Infertility Medical Assistant: Jaylon GIORDANOreatinine [Mass/Vol]0.99 mg/dLNormal0.60-1.00 Quest DiagnosticsComment on above:Performed By: #### 21160 #### [facility] [address] [place] [address] Infertility Medical Assistant: Carmita Alcala #### 6517, 496, 2740 #### [facility] [address], [address] [place] [address] Infertility Medical Assistant: Jaylon Bagley MDGFR/1.73 sq M.predicted among non-blacks MDRD (S/P/Bld) [Vol rate/Area]59 mL/min/{1.73_m2}Low> OR = 60Quest DiagnosticsComment on above:Performed By: #### 90[address] #### [place] [address] Infertility Medical Assistant: Carmita Alcala #### 6517, 496, 0490 #### [facility] [address], [address] [place] [address] Infertility Medical Assistant: Jaylon Bagley MDGlobulin (S) [Mass/Vol]2.6 g/dLNormal1.9-3.7 Quest DiagnosticsComment on above:Performed By: #### 98342 #### [facility] [address] [place] [address] Infertility Medical Assistant: Carmita Alcala #### 6517, 496, 6720 #### [facility] [address], [address] [place] [address] Infertility Medical Assistant: Jaylon Bagley MDGlucose [Mass/Vol]131 mg/dZDsww34-28Hdtfi DiagnosticsComment on above:Result Comment: Fasting reference interval For someone without known diabetes, a glucose value >125 mg/dL indicates that they may have diabetes and this should be confirmed with a follow-up test.Performed By: #### 79124 #### [facility] [address] [place] [address] Infertility Medical Assistant: Carmita Alcala #### 6517, 496, 5090 #### [facility] [address], [address] [place] [address] Infertility Medical Assistant: Jaylon Bagley MDPotassium [Moles/Vol]4.3 mmol/LNormal3.5-5.3 Quest DiagnosticsComment on above:Performed By: #### 84824 #### [facility] [address] [place] [address] Infertility Medical Assistant: Carmita Alcala #### 6517, 546, 6020 #### [facility] [address], [address] [place] [address] Infertility Medical Assistant: Jaylon Bagley MDProtein [Mass/Vol]6.8 g/dLNormal6.1-8.1Quest DiagnosticsComment on above:Performed By: #### 74351 #### [facility] [address] [place], [place] [address] Infertility Medical Assistant: Carmita Alcala #### 6517, 496, 6730 #### [facility] [address], [address] [place] [address] Infertility Medical Assistant: Jaylon Bagley MDSodium [Moles/Vol]144 mmol/ZEvajfs691-515Esqji DiagnosticsComment on above:Performed By: #### 19042 #### [facility] [address] [place] [address] Infertility Medical Assistant: Carmita Alcala #### 6517, 496, 7600 #### [facility] [address] [place] [address], [address] [place] [address] Infertility Medical Assistant: Jayoln Bagley MDUrea nitrogen [Mass/Vol]24 mg/dLNormal7-25 [facility] DiagnosticsComment on above:Performed By: #### 04128 #### [facility] [place] [address] Infertility Medical Assistant: Carmita Alcala #### 6517, 496, 7600 #### [facility] [address] [place] [address], [address] [place] [address] Infertility Medical Assistant: Jaylon Bagley MDHEMOGLOBIN A1con 15-02-7281AbE5a (Bld) [Mass fraction]6.1 %High<5.7Quest DiagnosticsComment on above:Result [...] diagnosis of diabetes for children.Performed By: #### 90111 #### [facility] [address] [place] [address] Infertility Medical Assistant: Carmita Alcala #### 6517, 496, 7600 #### [facility] [address], [address] [place] [address] Infertility Medical Assistant: Jaylon Bagley MDLIPID PANEL, STANDARDon 48-90-7286Uisfwjahtkx [Mass/Vol]106 mg/dLNormal<200Quest DiagnosticsComment on above:Order Comment: FASTING:YES FASTING: YESPerformed By: #### 77587 #### [facility] [place] [address] Infertility Medical Assistant: Carmita Alcala #### 6517, 496, 7600 #### [facility] [address] [facility], [address] [place] [address] Infertility Medical Assistant: Jaylon Bagley MDCholesterol in HDL [Mass/Vol]28 mg/dLLow> OR = 50Quest DiagnosticsComment on above:Order Comment: FASTING:YES FASTING: YESPerformed By: #### 30710 #### [facility] [address] [place] [address] Infertility Medical Assistant: Carmita Alcala #### 6517, 481, 6491 #### [facility] [address] , [address] [place] [address] Infertility Medical Assistant: Jaylon Bagley MDCholesterol in LDL [Mass/Vol]52 mg/dLNormal [...] LDL-C. Grayson SS et al. JAMIE. 2013;310(19): 3216-3877 (http://education.[place] Free Classifieds.EDMdesigner/faq/XXV777)Performed By: #### 52964 #### [facility] [address] [place] [address] Infertility Medical Assistant: Carmita Alcala #### 6517, 488, 5645 #### [facility] [address] , [address] [place] [address] Infertility Medical Assistant: Jaylon Joynerstcaroline.total/Cholesterol in HDL [Mass ratio]3.8 {ratio}Normal<5.0Quest DiagnosticsComment on above:Order Comment: FASTING:YES FASTING: YESPerformed By: #### 74165 #### [facility] [place] [address] Infertility Medical Assistant: Carmita Alcala #### 6517, 496, 3220 #### [facility] [address], [address] [place], [place] [address] Infertility Medical Assistant: Jaylon ALVARADO HDL TTLGELCIPPC45 mg/dL (calc)Normal<130 [facility] DiagnosticsComment on above:Order Comment: FASTING:YES FASTING: YESResult Comment: For patients with diabetes plus 1 major ASCVD risk factor, treating to a non-HDL-C goal of <100 mg/dL (LDL-C of <70 mg/dL) is considered a therapeutic option.Performed By: #### 91469 #### [facility] [address] [place] [address] Infertility Medical Assistant: Carmita Alcala #### 6517, 496, 3540 #### [facility] [address], [address] [place] [address] Infertility Medical Assistant: Jaylon Bagley MDTriglyceride [Mass/Vol]187 mg/dLHigh<150Quest DiagnosticsComment on above:Order Comment: FASTING:YES FASTING: YESPerformed By: #### 88662 #### [facility] [address] [place] [address] Infertility Medical Assistant: Carmita Alcala #### 6517, 496, 3580 #### [facility] [address], [address] [place], [place] [address] Infertility Medical Assistant: Jaylon Bagley MDEast [facility] Cultureon 12-75-2538Sbuffeon identified Cx Nom (U)ORGANISM: Klebsiella pneumoniae (O:KLEPNE) [place] Count >100,000 Aerobic LISETH Charge (NMIC56) SUSCEPTIBILITY [...] RESISTANT TO ALL B-LACTAM DRUGS. PERFORMED BY: [place] [address] PATHOLOGIST [employer] AGENT BEBE CARBALLO M.D.[facility] Physician GroupComment on above: Performed By: #### CUU #### [place] [address] USAMM screening mammo BI w/CADon 97-77-6300TD screening mammo BI w/CAD[facility] [address] [place] [address] [address] [place] [address] Mammography Report Signed Patient: Patricia Blake MR#: [id number] : 1950 Acct:[id number] Age/Sex: 74 / F Adm Date: 11/25/24 Loc: MD Room: Type: [facility] Attending Dr: Angel Ramsey DO Ordering Provider: Angel Ramsey DO Date of Service: 11/25/24 Procedure(s): MM screening mammo BI w/CAD Accession Number(s): ([id number]) MM/MM screening mammo BI w/CAD: SCREENING Copies [...] Savi Prather M.D.11/25/2024 3:02 PM Dictation Location: [facility] Dictated By: Savi Prather MD 11/25/24 1459 Signed By: 11/25/[address] [place] [address] Physician GroupMammography reportOrdered By: Savi Prather on 90-90-5791Irxdtnrigs imaging studyDAYTON [facility] MED[facility] [address] [place] [address] Mammography Report Signed Patient: Patricia Blake MR#: [id number] : 1950 Acct:[id number] Age/Sex: 74 / F Adm Date: 5 Loc: MD Room: Type: [facility] Attending Dr: Angel Ramsey DO Ordering Provider: Angel Ramsey DO Date of Service: 11/25/24 Procedure(s): MM screening mammo BI w/CAD Accession Number(s): ([id number]) MM/MM screening mammo BI w/CAD: SCREENING Copies [...] Savi Prather M.D.11/25/2024 3:02 PM Dictation Location: [facility] Dictated By: Savi Prather MD 11/25/24 1459 Signed By: 11/25/24 1502 [facility] Work Phone: T3 REVERSE, LC/MS/MSon 61-61-1529G1 REVERSE, LC/MS/MS 17 ng/dLNormal05-02LEYIO DiagnosticsComment on above:Order Comment: FASTING:NOFASTING: NOResult Comment: This test was developed and its analytical performance characteristics have been determined by [employer] [place], [place]. It has not been cleared or approved by the U.S. Food and Drug Administration. This assay has been validated pursuant to the CLIA regulations and is used for clinical purposes.Performed By: #### 04104 #### [facility] [place] [address] Infertility Medical Assistant: Carmita Alcala #### 0345, 906, 8955 #### [facility] [address] [facility], [address] [place] [address] Infertility Medical Assistant: Jaylon Bagley MDT3, FREEon 64-16-5421Olct T3 [Mass/Vol]3.2 pg/mLNormal2.3-4.2Quest DiagnosticsComment on above:Performed By: #### 02656 #### [facility] [address] [place] [address] Infertility Medical Assistant: Carmita Alcala #### 6517, 496, 5670 #### [facility] [place] [address] , [address] [place] [address] Infertility Medical Assistant: Jaylon Bagley MDT3, TOTALon 15-36-2825H0, NDWAH654 ng/dLNormal 76-181Quest DiagnosticsComment on above:Performed By: #### 58744 #### [facility] [address] [place] [address] Infertility Medical Assistant: Carmita Alcala #### 6517, 496, 0057 #### [facility] [place] [address] [address] , [address] [place] [address] Infertility Medical Assistant: Jaylon Bagley MDT4, [facility] 36-09-5575Wdom T4 [Mass/Vol]1.2 ng/dLNormal0.8-1.8Quest DiagnosticsComment on above:Performed By: #### 32309 #### [facility] [address] [place] [address] Infertility Medical Assistant: Carmita Alcala #### 6517, 496, 6530 #### [facility] [place] [address] [address] , [address] [place] [address] Infertility Medical Assistant: Jaylon Bagley MDManhattan Psychiatric Centern 97-75-2454PNV Qn1.47 m[IU]/LNormal 0.40-4.50Quest DiagnosticsComment on above:Performed By: #### 59085 #### [facility] [address] [place] [address] Infertility Medical Assistant: Carmita Alcala #### 6517, 496, 2614 #### [facility] [place] [address] , [address] [place] [address] Infertility Medical Assistant: Jaylon Bagley MDXR CHEST 2Von 39-40-0016X[place] [id number] XRay Report Signed Patient: PATRICIA BLAKE MR#: [id number] : 1950 Acct:[id number] Age/Sex: 73 / F ADM Date: 03/12/24 Loc: CARD Attending Dr: PACHECO GALINDO Ordering Physician: PACHECO GALINDO Date of Service: 03/12/24 Procedure(s): XR chest 2V Accession Number(s): [id number] cc: AASHISH LAGUNA ; PACHECO GALINDO [place] [address] Patient Name: PATRICIA BLAKE MRN: [id number] date: 1950 Sex: F Assigned Patient Location: CARD Current Patient Location: Accession/Order Number: [id number] Exam Date: 03/12/2024 08:17 Report Date: 03/15/2024 [...] M.D. Signed By: 03/15/241651 DD/ 49 TD/TT: Packaging Sales:ANGIEHRadiology, Radiologist, MD - 03/15/2024 The [place] [id number] XRay Report Signed Patient: PATRICIA BLAKE MR#: [id number] : 1950 Acct:[id number] Age/Sex: 73 / F ADM Date: 03/12/24 Loc: CARD Attending Dr: PACHECO GALINDO Ordering Physician: PACHECO GALINDO Date of Service: 03/12/24 Procedure(s): XR chest 2V Accession Number(s): [id number] cc: AASHISH LAGUNA ; PACHECO GALINDO [place] [id number] Patient Name: PATRICIA BLAKE MRN: [id number] date: 1950 Sex: F Assigned Patient Location: CARD Current Patient Location: Accession/Order Number: [id number] Exam Date: 03/12/2024 08:17 Report Date: 03/15/2024 [...] M.D. Signed By: 03/15/241651 DD/ 49 TD/TT: Packaging Sales: VALE HealthcareRadiology Study observation (narrative)NOMS HealthcareXR CHEST 2V Ordered By: Radiologist Radiology on 41-63-5193SZ[facility] Work Phone: ecg 12-LEADon [phone] [address] Electrocardiograph Report Signed Patient: PATRICIA BLAKE MR#: [id number] : 1950 Acct:[id number] Age/Sex: 73 / F ADM Date: 08/21/23 Loc: RAD Attending Dr: Raissa-Staff Physician Feliciano Ordering Physician: Jean-Paul Paula M.D. 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 Signed By: 08/22/23713 DD/ 22 TD/TT: Packaging Sales:TBHRadiology, Radiologist, MD - 08/22/2023 [place] [address] Electrocardiograph Report Signed Patient: PATRICIA BLAKE MR#: [id number] : 1950 Acct:[id number] Age/Sex: 73 / F ADM Date: 08/21/23 Loc: MOLLY Attending Dr: Raissa-Staff Physician Feliciano Ordering Physician: Jean-Paul Paula M.D. 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 Signed By: 08/22/23 0714 DD/ 1423 TD/TT: Packaging Sales: VALE EstesECG 12-LEADOrdered By: Radiologist Radiology on 80-10-3377TVCN [facility] Work Phone: ECG 12-LEADon 97-04-4655Blzzgjlya Study observation (narrative)NOM HealthcareT3, TOTAL (TRIIODOTHYRONINE)on 84-42-3436K0, GSMCB488 ng/bZApcnkx18-395Vos [facility] TrumbullComment on above:Performed By: #### CBC #### [facility] [address] [place] [address] Dr. Sami Mcarthur AUTO DIFFon 11-05-3794FYJQ #0.0 103/ulNormal0.0-0.1The [facility] TrumbullComment on above:Performed By: #### CBC #### [facility] [address] [place] [address] [address] Sami Duransophils/100 WBC (Bld)0.3 %Normal0.2-2.0[facility] Comment on above:Performed By: #### CBC #### [facility] [address] [place] [address] Dr. Sami Sanabria #0.1 103/ulNormal0.0-0.7The [facility] TrumbullComment on above: Performed By: #### CBC #### [facility] [address] [place] [address] [address] Sami Sanchezosinophils/100 WBC (Bld)1.2 %Normal0.9-7.0The [facility] Comment on above:Performed By: #### CBC #### [facility] [address] [place] [address] Dr. Sami Sanchezrythrocyte distribution width (RBC) [Ratio]15.7 %Critically high 11.0-15.0The [facility] TrumbullComment on above:Performed By: #### CBC #### [facility] [address] [place] [address] Dr. Sami WilliamHematocrit (Bld) [Volume fraction]35.9 %Critically low36.0-48.0 The [facility] TrumbullComment on above:Performed By: #### CBC #### [facility] [address] [place] [address] Dr. Sami WilliamHemoglobin (Bld) [Mass/Vol]11.1 g/dLCritically low12.0-16.0The [facility] TrumbullComment on above:Performed By: #### CBC #### [facility] [address] [place] [address] Dr. Sami Padgett #0.03 10e3/ulNormal0.00-0.03The [facility] TrumbullComment on above:Performed By: #### CBC #### [facility] [address] [place] [address] Dr. Sami Padgett %0.4 %Normal0.0-0.5The [facility] TrumbullComment on above: Performed By: #### CBC #### [facility] [address] [place] [address] Dr. Sami Duarte #1.5 103/ulNormal1.2-3.8The [facility] on above:Performed By: #### CBC #### [facility] [address] [place] [address] Dr. Sami Moodymphocytes/100 WBC (Bld)19.2 %Critically low20.5-60.0The [facility] TrumbullComment on above:Performed By: #### CBC #### [facility] [address] [place] [address] Dr. Sami KevinUAL DIFF REQNONormalThe [facility] TrumbullComment on above: Performed By: #### CBC #### [facility] [address] [place] [address] Dr. Sami Salinas (RBC) [Entitic mass]26.9 plWmqoog47.7-34.0The [facility] TrumbullComment on above:Performed By: #### CBC #### [facility] [address] [place] [address] [address] Sami Villanueva (RBC) [Mass/Vol]30.9 g/mYKhzxqu79.9-35.2The [facility] TrumbullComment on above:Performed By: #### CBC #### [facility] [address] [place] [address] Dr. Sami VillanuevaV (RBC) [Entitic vol]87.1 fJVjkkzy84.0-99.0The [facility] TrumbullComment on above:Performed By: #### CBC #### [facility] [address] [place] [address] Dr. Sami Hallman #0.5 103/ulNormal0.3-0.8The [facility] TrumbullComment on above:Performed By: #### CBC #### [facility] [address] [place] [address] Dr. Sami Salazarocytes/100 WBC (Bld)7.0 %Normal1.7-12.0The [facility] Comment on above:Performed By: #### CBC #### [facility] [address] [place] [address] Dr. Sami Hollis #5.6 103/ulNormal1.4-6.5The [facility] TrumbullComment on above:Performed By: #### CBC #### [facility] [address] [place] [address] Dr. Sami Bhatutrophils/100 WBC (Bld)71.9 %Pzslbw20.0-75.0The [facility] TrumbullComment on above:Performed By: #### CBC #### [facility] [address] [place] [address] Dr. Sami Crewslet mean volume (Bld) [Entitic vol]12.1 fLNormal9.5-13.5The [facility] TrumbullComment on above:Performed By: #### CBC #### [facility] [address] [place] [address] Dr. Sami WilliamPLT213 103/prXtfhxe513-004Twy [facility] TrumbullComment on above: Performed By: #### CBC #### [facility] [address] [place] [address] Dr. Sami WilliamRBC4.12 106/ulCritically low4.20-5.40The [facility] TrumbullComment on above:Performed By: #### CBC #### [facility] [address] [place] [address] Dr. Sami WilliamWBC7.7 103/ulNormal4.0-11.0The [facility] TrumbullComment on above: Performed By: #### CBC #### [facility] [address] [place] [address] Dr. Sami WilliamPROF CHEM 8 (BAS METB)on 98-48-8333Ahtcw gap [Moles/Vol]15.5 mmol/LNormalThe [facility] TrumbullComment on above:Performed By: #### TSH, FT3 #### [facility] [address] [place] [address] Dr. Sami WilliamCalcium [Mass/Vol]10.0 mg/dLNormal8.5-10.1The [facility] Comment on above:Performed By: #### TSH, FT3 #### [facility] [address] [place] [address] Dr. Sami WilliamChloride [Moles/Vol]105 mmol/IJqmwzs47-693Qvn [facility] Comment on above:Performed By: #### TSH, FT3 #### [facility] [address] [place] [address] Dr. Sami WilliamCO2 [Moles/Vol]28.1 mmol/JXypsvt87.0-32.0The [facility] Comment on above:Performed By: #### TSH, FT3 #### [facility] [address] [place] [address] Dr. Sami WilliamCreatinine [Mass/Vol]0.84 mg/dLNormal0.55-1.02The [facility] TrumbullComment on above:Performed By: #### TSH, FT3 #### [facility] [address] [place] [address] Dr. Yilan ChangEGFR-AF DANISH>60Normal>=60The [facility] - TrumbullComment on above:Performed By: #### TSH, FT3 #### [facility] [address] [place] [address] Dr. Sami SanchezGFR-NON AF DANISH>60Normal>=60The [facility] TrumbullComment on above:Performed By: #### TSH, FT3 #### [facility] [address] [place] [address] Dr. Sami WilliamGlucose [Mass/Vol]114 mg/dLCritically psqd81-973Ssj [facility] TrumbullComment on above:Performed By: #### TSH, FT3 #### [facility] [address] [place] [address] Dr. Sami WilliamPotassium [Moles/Vol]3.6 mmol/LNormal3.5-5.1[facility] Comment on above:Performed By: #### TSH, FT3 #### [facility] [address] [place] [address] Dr. Sami WilliamSodium [Moles/Vol]145 mmol/NEuyycr866-099Phr [facility] Comment on above:Performed By: #### TSH, FT3 #### [facility] [address] [place] [address] Dr. Sami WilliamUrea nitrogen [Mass/Vol]21.0 mg/dLCritically high7.0-18.0The [facility] TrumbullComformerly [facility] on above:Performed By: #### TSH, FT3 #### [facility] [address] [place] [address] Dr. Sami Willams nitrogen/Creatinine [Mass ratio]25.0 mg/mgNormalThe [facility] TrumbullComment on above:Performed By: #### TSH, FT3 #### [facility] [address] [place] [address] Dr. Sami WilliamSEDebra RATE WESTERGRENon 63-87-7491EUU GTHL700 mm/hrCritically high <=30The [facility] TrumbullComment on above:Performed By: #### CBC #### [facility] [address] [place] [address] Dr. Sami WilliamURIC ACID SERUMon 98-53-7857Xyjkx [Mass/Vol]9.6 mg/dLCritically high2.6-6.0The [facility] TrumbullComment on above:Performed By: #### TSH, FT3 #### [facility] [address] [place] [address] [address] Sami WilliamCARDIAC STRESS TESTon 83-59-8075TLYJBOO STRESS [place] [id number] CARDIAC STRESS TEST PATIENT NAME: PATRICIA BLAKE : 1950 MED REC NO: [id number] ROOM: ACCOUNT NO: [id number] ADMIT DATE: 09/17/2022 PROVIDER: Niru Galindo MD [...] to follow. NIRU GALINDO MD GV/V_TTUMA_T Doc#: [id number] CC: Aashish LagunaMercy Health Springfield Regional Medical CenterCARDIAC STRESS [place] [id number] CARDIAC STRESS TEST PATIENT NAME: PATRICIA BLAKE : 1950 MED REC NO: [id number] ROOM: ACCOUNT NO: [id number] ADMIT DATE: 09/17/2022 PROVIDER: Kevin Dangelo DATE [...] DANGELO SB/IGNACIO_EDIT Doc#: Unknown CC: Aashish Galindo MDThe University of Toledo Medical Centertress test, lexiscanojessica 64-48-3554Csaiyv Bruhl, MD - 09/18/2022 10:17 [place] [address] CARDIAC STRESS TEST PATIENT NAME: PATRICIA BLAKE : 1950 MED REC NO: [id number] ROOM: ACCOUNT NO: [id number] ADMIT DATE: 09/17/2022 PROVIDER: Kevin Dangelo DATE [...] Aashish Galindo MD [facility] [employer] Phone: stress test, lexiscanOrdered By: Kevin Dangelo on 21-22-8388AIE [employer] Phone: nm MYOCARDIAL SPECT REST EXERCISE OR RXon 95-84-8127VG MYOCARDIAL SPECT REST EXERCISE OR RXRadiology exam is complete. No Radiologist dictation. Please follow up with ordering provider. Final resultNormalKettering Health Preble Informationon 09-17-2022 Radiology exam is complete. No Radiologist dictation. Please follow up with ordering provider. PN RIS CONSOLIDATEDCULTURE URINEon [id number] URINEIsolate 1 Klebsiella pneumoniae >100,000 cfu/ml of [...] 128 R F Trimethoprim/Sulfamethoxazole <=20 S FNormalThe [facility] - TrumbullComment on above:Performed By: #### CBC #### [facility] [address] [place] [address] Dr. Sami Grey [id number] peptide B (Bld) [Mass/Vol]1013.0 pg/mLCritically high<=900.0The [facility] TrumbullComment on above:Performed By: #### HSTROPN, LIPA, BNP, CMP #### [facility] [address] [place] [address] Dr. Sami Mcarthur AUTO DIFFon [id number] #0.0 103/ulNormal0.0-0.1The [facility] TrumbullComment on above:Performed By: #### TSH, FT3 #### [facility] [address] [place] [address] Dr. Sami WilliamBasophils/100 WBC (Bld)0.3 %Normal0.2-2.0The [facility] Comment on above:Performed By: #### TSH, FT3 #### [facility] [address] [place] [address] Dr. Sami Sanabria #0.1 103/ulNormal0.0-0.7The [facility] Tr[facility]ullComment on above: Performed By: #### TSH, FT3 #### [facility] [address] [place] [address] Dr. Sami Sanchezosinophils/100 WBC (Bld)1.1 %Normal0.9-7.0The [facility] Comment on above:Performed By: #### TSH, FT3 #### [facility] [address] [place] [address] Dr. Sami Sanchezrythrocyte distribution width (RBC) [Ratio]15.7 %Critically high 11.0-15.0The [facility] TrumbullComment on above:Performed By: #### TSH, FT3 #### [facility] [address] [place] [address] Dr. Sami WilliamHematocrit (Bld) [Volume fraction]35.5 %Critically low36.0-48.0 The [facility] TrumbullComment on above:Performed By: #### TSH, FT3 #### [facility] [address] [address] [address] Sami WilliamHemoglobin (Bld) [Mass/Vol]11.0 g/dLCritically low12.0-16.0The [facility] Tr[facility]ullComment on above:Performed By: #### TSH, FT3 #### [facility] [address] [place] [address] Dr. Sami Padgett #0.04 10e3/ulCritically high0.00-0.03The [facility] Comment on above:Performed By: #### TSH, FT3 #### [facility] [address] [place] [address] Dr. Sami Padgett %0.5 %Normal0.0-0.5The [facility] TrumbullComment on above: Performed By: #### TSH, FT3 #### [facility] [address] [place] [address] Dr. Sami Duarte #2.0 103/ulNormal1.2-3.8The [facility] TrumbullComment on above:Performed By: #### TSH, FT3 #### [facility] [address] [place] [address] Dr. Sami Vasquezhocytes/100 WBC (Bld)27.7 %Svlmqo65.5-60.0The [facility] Tr[facility]ullComment on above:Performed By: #### TSH, FT3 #### [facility] [address] [place] [address] Dr. Sami KevinUAL DIFF REQNONormalThe [facility] TrumbullComment on above: Performed By: #### TSH, FT3 #### [facility] [address] [place] [address] Dr. Sami Salinas (RBC) [Entitic mass]27.0 dqSiydjd60.7-34.0The [facility] TrumbullComment on above:Performed By: #### TSH, FT3 #### [facility] [address] [place] [address] Dr. Sami Villanueva (RBC) [Mass/Vol]31.0 g/iUGlljpe47.9-35.2The [facility] TrumbullComment on above:Performed By: #### TSH, FT3 #### [facility] [address] [place] [address] Dr. Sami Blue (RBC) [Entitic vol]87.2 jQLcmjvc57.0-99.0The [facility] TrumbullComment on above:Performed By: #### TSH, FT3 #### [facility] [address] [place] [address] Dr. Sami Hallman #0.4 103/ulNormal0.3-0.8The [facility] TrumbullComment on above:Performed By: #### TSH, FT3 #### [facility] [address] [place] [address] Dr. Sami Salazarocytes/100 WBC (Bld)5.3 %Normal1.7-12.0The [facility] Comment on above:Performed By: #### TSH, FT3 #### [facility] [address] [place] [address] Dr. Sami Hollis #4.7 103/ulNormal1.4-6.5The [facility] TrumbullComment on above:Performed By: #### TSH, FT3 #### [facility] [address] [place] [address] Dr. Sami Bhatutrophils/100 WBC (Bld)65.1 %Mvqeqq00.0-75.0The [facility] Tr[facility]ullComment on above:Performed By: #### TSH, FT3 #### [facility] [address] [place] [address] Dr. Sami Crewslet mean volume (Bld) [Entitic vol]13.1 fLNormal9.5-13.5The [facility] TrumbullComment on above:Performed By: #### TSH, FT3 #### [facility] [address] [place] [address] Dr. Sami WilliamPLT211 103/vnIxhghx386-756Htg [facility] TrumbullComment on above: Performed By: #### TSH, FT3 #### [facility] [address] [place] [address] Dr. Sami WilliamRBC4.07 106/ulCritically low4.20-5.40The [facility] on above:Performed By: #### TSH, FT3 #### [facility] [address] [place] [address] Dr. Sami WilliamWBC7.3 103/ulNormal4.0-11.0The [facility] TrumbullComment on above: Performed By: #### TSH, FT3 #### [facility] [address] [place] [address] Dr. Sami Silva URINE PROFILEon 06-67-9081Hheqtoffy Ql (U)NegativeNormal NEGATIVEPremier Health [facility]rium [facility] Center on above:Performed By: #### CBC #### [facility] [address] [place] [address] Dr. Sami WilliamClarity (U)CLEARNormalCLEARHolzer Medical Center – JacksonComment on above: Performed By: #### CBC #### [facility] [address] [place] [address] Dr. Sami Saldana (U)LT. YELLOWNormalYELLOWUpper Valley Medical Centerment on above:Performed By: #### CBC #### [facility] [address] [place] [address] Dr. Sami Sousa micrscopic examination will be performed if indicated. NormalThe [facility] on above:Performed By: #### CBC #### [facility] [address] [place] [address] Dr. Sami WilliamGlucose Ql (U)NegativeNormalNEGATIVEUpper Valley Medical Centerment on above:Performed By: #### CBC #### [facility] [address] [place] [address] Dr. Sami WilliamHemoglobin Ql (U)NegativeNormalNEGATIVEGood Samaritan Hospital on above:Performed By: #### CBC #### [facility] [address] [place] [address] Dr. Sami WilliamKetones Ql (U)NegativeNormalNEGATIVEThe Damaso HospitalComment on above:Performed By: #### CBC #### [facility] [address] [address] [address] Sami WilliamLEUKOCYTESMODERATEAbnormalNEGATIVEHolzer Medical Center – JacksonComment on above:Performed By: #### CBC #### [facility] [address] [address] [address] Sami Greytrite Ql (U)PositiveAbnormalNEGUniversity Hospitals Geauga Medical Center Comment on above:Performed By: #### CBC #### [facility] [address] [address] [address] Sami WilliampH (U)6.5 [pH]Normal5-9The [facility] TrumbullComment on above: Performed By: #### CBC #### [facility] [address] [place] [address] Dr. aSmi WilliamSPEC GRAVITY1.675Txtknq9.005-<=1.025The [facility] TrumbullComment on above:Performed By: #### CBC #### [facility] [address] [place] [address] Dr. Sami Groves PROTEINNegativeNormalNEGATIVE/ TRACEHolzer Medical Center – Jackson Comment on above:Performed By: #### CBC #### [facility] [address] [place] [address] Dr. Sami Otto MICRO INDINDICATEDNormalThKettering Health HamiltonComment on above: Performed By: #### CBC #### [facility] [address] [place] [address] Dr. Sami WilliamUrobilinogen Qn (U)0.2 {Sunni'U}/dLNormal0.2 - 1.0The [facility] TrumbullComment on above:Performed By: #### CBC #### [facility] [address] [place] [address] Dr. Sami WilliamLIPASEon 91-69-5210Iuxtto [Catalytic activity/Vol]121.0 U/LNormal 73.0-393.0The [facility] TrumbullComment on above:Performed By: #### HSTROPN, LIPA, BNP, CMP #### [facility] [address] [place] [address] Dr. Sami Fitch 14(COMP METB)on 60-08-0957Rxerokn [Mass/Vol]3.7 g/dLNormal 3.4-5.0The [facility] TrumbullComment on above:Performed By: #### HSTROPN, LIPA, BNP, CMP #### [facility] [address] [place] [address] Dr. Sami WilliamAlbumin/Globulin [Mass ratio]0.9 {ratio}NormalThe [facility] TrumbullComment on above:Performed By: #### HSTROPN, LIPA, BNP, CMP #### [facility] [address] [place] [address] Dr. Sami Bales [Catalytic activity/Vol]73 U/HOhjnnu07-142Mia [facility] TrumbullComment on above:Performed By: #### HSTROPN, LIPA, BNP, CMP #### [facility] [address] [place] [address] Dr. Sami Chacon [Catalytic activity/Vol]23 U/XBpvcoj75-53Lzl [facility] TrumbullComment on above:Performed By: #### HSTROPN, LIPA, BNP, CMP #### [facility] [address] [place] [address] Dr. Sami Russo gap [Moles/Vol]16.4 mmol/LNormalThe [facility] Comment on above:Performed By: #### HSTROPN, LIPA, BNP, CMP #### [facility] [address] [place] [address] Dr. Sami WilliamAST [Catalytic activity/Vol]23 U/QWtytbd91-49Yiy [facility] TrumbullComment on above:Performed By: #### HSTROPN, LIPA, BNP, CMP #### [facility] [address] [place] [address] Dr. Sami WilliamBilirubin [Mass/Vol]0.3 mg/dLNormal0.2-1.0The [facility] Comment on above:Performed By: #### HSTROPN, LIPA, BNP, CMP #### [facility] [address] [address] [address] Sami WilliamCalcium [Mass/Vol]9.4 mg/dLNormal8.5-10.1The [facility] Comment on above:Performed By: #### HSTROPN, LIPA, BNP, CMP #### [facility] [address] [address] [address] Sami WilliamChloride [Moles/Vol]102 mmol/XWmwagp72-744Cac [facility] Comment on above:Performed By: #### HSTROPN, LIPA, BNP, CMP #### [facility] [address] [place] [address] Dr. Sami WilliamCO2 [Moles/Vol]28.5 mmol/UItcptn22.0-32.0[facility] Comment on above:Performed By: #### HSTROPN, LIPA, BNP, CMP #### [facility] [address] [place] [address] Dr. Sami WilliamCreatinine [Mass/Vol]1.07 mg/dLCritically high0.55-1.02[facility] – JacksonComment on above:Performed By: #### HSTROPN, LIPA, BNP, CMP #### [facility] [address] [place] [address] Dr. Sami SanchezGFR-AF DANISH>60Normal>=60The [facility] TrumbullComment on above:Performed By: #### HSTROPN, LIPA, BNP, CMP #### [facility] [address] [place] [address] Dr. Sami SanchezGFR-NON AF HNELEQID80 mL/min/1.09z6Gevrmdhfrv low>=60The [facility] TrumbullComment on above:Performed By: #### HSTROPN, LIPA, BNP, CMP #### [facility] [address] [place] [address] Dr. Sami WilliamGlobulin (S) [Mass/Vol]3.9 g/dLNormalThe [facility] TrumbullComment on above:Performed By: #### HSTROPN, LIPA, BNP, CMP #### [facility] [address] [address] [address] Sami WilliamGlucose [Mass/Vol]166 mg/dLCritically obsm83-120Mem [facility] TrumbullComment on above:Performed By: #### HSTROPN, LIPA, BNP, CMP #### [facility] [address] [address] [address] Sami WilliamPotassium [Moles/Vol]3.9 mmol/LNormal3.5-5.1The [facility] Comment on above:Performed By: #### HSTROPN, LIPA, BNP, CMP #### [facility] [address] [address] [address] Sami WilliamProtein [Mass/Vol]7.6 g/dLNormal6.4-8.2[facility] Comment on above:Performed By: #### HSTROPN, LIPA, BNP, CMP #### [facility] [address] [address] [address] Sami WilliamSodium [Moles/Vol]143 mmol/XVywecg058-486Wse [facility] Comment on above:Performed By: #### HSTROPN, LIPA, BNP, CMP #### [facility] [address] [address] [address] Sami WilliamUrea nitrogen [Mass/Vol]21.0 mg/dLCritically high7.0-18.0The [facility] TrumbullComment on above:Performed By: #### HSTROPN, LIPA, BNP, CMP #### [facility] [address] [address] [address] Sami WilliamUrea nitrogen/Creatinine [Mass ratio]19.6 mg/mgNormalThe [facility] TrumbullComment on above:Performed By: #### HSTROPN, LIPA, BNP, CMP #### [facility] [address] [place] [address] Dr. Sami KeysIMEniles 21-24-7308SNQ Coag (PPP) [Relative time]1.10 {INR} NormalThe [facility] on above:Performed By: #### TSH, FT3 #### [facility] [address] [address] [address] Sami Bhatt GUIDELINESSEE [facility] on above:Result Comment: DESIRED INR: 2.0 - 3.0 CONDITIONS NOT LISTED BELOW 2.5 - 3.5 FOR PROSTHETIC HEART VALVE REPLACEMENT 2.5 - 3.5 RECURRENT THROMBOSIS Performed By: #### TSH, FT3 #### [facility] [address] [address] [address] Sami WilliamPT Coag (PPP) [Time]11.8 sCritically high9.0-11.6The [facility] on above:Performed By: #### TSH, FT3 #### [facility] [address] [place] [address] Dr. Sami Cain 70-66-2407vVEQ Coag (Bld) [Time]28.1 wWgayob34.3-36.2The [facility] on above:Performed By: #### TSH, FT3 #### [facility] [address] [place] [address] Dr. Sami Crawford, HIGH SENSITIVITYon 65-53-9606EIIZFA78.3 pg/mLNormal 4.0-51.3The [facility] on above:Result Comment: CUT-OFF POINTS HAVE BEEN ESTABLISHED BASED ON THE FOURTH UNIVERSAL DEFINITIONS OF MYOCARDIAL INFARCTION. THE UPPER REFERENCE LIMIT (URL) OF TROPONIN, DEFINED THE 99TH PERCENTILE OF cTnI DISTRIBUTION IN A REFERENCE POPULATION, HAS BEEN CONFIRMED THE DECISION THRESHOLD FOR DC DIAGNOSIS.Performed By: #### HSTROPN, LIPA, BNP, CMP #### [facility] [address] [place] [address] Dr. Sami FIELDon [id number]sdzbkJCCJ SEEN [facility] on above:Performed By: #### CBC #### [facility] [address] [place] [address] Dr. Sami Barba identified Cx Nom (U)INDICATEDNormalThe Putnam HospitalComment on above:Performed By: #### CBC #### [facility] [address] [address] [address] Sami WilliamCASTGROVER SEENNormalNONE SEENPremier Health Atrium Medical Center on above:Performed By: #### CBC #### [facility] [address] [address] [address] Sami WilliamCrystals LM Nom (Urine sed)NONE SEENNormalNONE SEENThe [facility] on above:Performed By: #### CBC #### [facility] [address] [address] [address] Gallardo ChangEpithelial cells LM Ql (Urine sed)FEWAbnormalNONE SEEN /RAREThe [facility] on above:Performed By: #### CBC #### [facility] [address] [place] [address] Dr. Sami JenkinsCOUSGROVER SEENNormalNONE SEENThe [facility] on above:Performed By: #### CBC #### [facility] [address] [place] [address] Dr. Sami WilliamRBCNCHANCE SEENAbnormal0-2The [facility] on above: Performed By: #### CBC #### [facility] [address] [place] [address] Dr. Sami WilliamXonffLDD00-70TvilxmroUCEJ SEENThe [facility] on above: Performed By: #### CBC #### [facility] [address] [place] [address] Dr. Sami WilliamXR CHEST 1 Von [id number] CHEST 1 VEXAM: XR CHEST 1 V [...] authenticated by: OLENA STONE Date: 2022-09-05 12:54NormalThe [facility] AUTO DIFFon [id number] #0.0 103/ulNormal0.0-0.1[facility] JacksonComment on above:Performed By: #### CBC #### [facility] [address] [place] [address] Dr. Sami WilliamBasophils/100 WBC (Bld)0.4 %Normal0.2-2.0[facility] Comment on above:Performed By: #### CBC #### [facility] [address] [place] [address] Dr. Sami Sanabria #0.1 103/ulNormal0.0-0.7The [facility] TrumbullComment on above: Performed By: #### CBC #### [facility] [address] [place] [address] Dr. Sami Sanchezosinophils/100 WBC (Bld)1.5 %Normal0.9-7.0[facility] Comment on above:Performed By: #### CBC #### [facility] [address] [place] [address] Dr. Sami Sanchezrythrocyte distribution width (RBC) [Ratio]15.8 %Critically high 11.0-15.0[facility] JacksonComment on above:Performed By: #### CBC #### [facility] [address] [place] [address] Dr. Sami WilliamHematocrit (Bld) [Volume fraction]35.8 %Critically low36.0-48.0 The [facility] TrumbullComment on above:Performed By: #### CBC #### [facility] [address] [place] [address] Dr. Sami WilliamHemoglobin (Bld) [Mass/Vol]10.8 g/dLCritically low12.0-16.0[facility] JacksonComment on above:Performed By: #### CBC #### [facility] [address] [place] [address] Dr. Sami Padgett #0.04 10e3/ulCritically high0.00-0.03The [facility] Comment on above:Performed By: #### CBC #### [facility] [address] [place] [address] Dr. Sami Padgett %0.5 %Normal0.0-0.5The [facility] TrumbullComment on above: Performed By: #### CBC #### [facility] [address] [place] [address] Dr. Sami Duarte #2.0 103/ulNormal1.2-3.8The [facility] TrumbullComment on above:Performed By: #### CBC #### [facility] [address] [place] [address] Dr. Sami Vasquezhocytes/100 WBC (Bld)27.1 %Pvpyek70.5-60.0The [facility] TrumbullComment on above:Performed By: #### CBC #### [facility] [address] [place] [address] Dr. Sami KevinUAL DIFF REQNONormalThe [facility] TrumbullComment on above: Performed By: #### CBC #### [facility] [address] [place] [address] Dr. Sami Villanueva (RBC) [Entitic mass]26.7 dcWujchl98.7-34.0The [facility] TrumbullComment on above:Performed By: #### CBC #### [facility] [address] [place] [address] Dr. Sami Villanueva (RBC) [Mass/Vol]30.2 g/mJWpxpmd58.9-35.2The [facility] TrumbullComment on above:Performed By: #### CBC #### [facility] [address] [place] [address] Dr. Sami Villanueva (RBC) [Entitic vol]88.4 vHLokutg87.0-99.0The [facility] TrumbullComment on above:Performed By: #### CBC #### [facility] [address] [place] [address] Dr. Sami Hallman #0.5 103/ulNormal0.3-0.8The [facility] TrumbullComment on above:Performed By: #### CBC #### [facility] [address] [address] [address] Sami Salazarocytes/100 WBC (Bld)6.4 %Normal1.7-12.0The [facility] Comment on above:Performed By: #### CBC #### [facility] [address] [place] [address] Dr. Sami Hollis #4.8 103/ulNormal1.4-6.5The [facility] TrumbullComment on above:Performed By: #### CBC #### [facility] [address] [place] [address] Dr. Sami Bhatutrophils/100 WBC (Bld)64.1 %Vgnxra50.0-75.0The [facility] TrumbullComment on above:Performed By: #### CBC #### [facility] [address] [place] [address] Dr. Sami Crewslet mean volume (Bld) [Entitic vol]12.8 fLNormal9.5-13.5The [facility] TrumbullComment on above:Performed By: #### CBC #### [facility] [address] [place] [address] Dr. Sami WilliamPLT204 103/eeAecbug637-801Ihk [facility] TrumbullComment on above: Performed By: #### CBC #### [facility] [address] [place] [address] Dr. Sami WilliamRBC4.05 106/ulCritically low4.20-5.40The [facility] TrumbullComment on above:Performed By: #### CBC #### [facility] [address] [place] [address] Dr. Sami WilliamWBC7.5 103/ulNormal4.0-11.0The [facility] TrumbullComment on above: Performed By: #### CBC #### [facility] [address] [place] [address] Dr. Sami Mcgarry T4on 49-81-8906Lgwe T4 [Mass/Vol]0.86 ng/dLNormal0.76-1.46 [facility] JacksonComment on above:Performed By: #### VITAD, FT4 #### [facility] [address] [address] [address] Sami WilliamLIPID PROFILEon [id number]-HDL RATIO NORMSEE BELOWLouis Stokes Cleveland VA Medical CenterComment on above:Result Comment: 3.3 - 4.4 LOW RISK 4.4 - 7.1 AVERAGE RISK 7.1 - 11.0 MODERATE RISK >11.0 HIGH RISKPerformed By: #### TSH, FT3 #### [facility] [facility] [address] [place] [address] Dr. Sami Costaesterol [Mass/Vol]109 mg/dLNormal<=200[facility] Comment on above:Performed By: #### TSH, FT3 #### [facility] [address] [place] [address] Dr. Sami Costaesterol in HDL [Mass/Vol]31 mg/dLCritically fos73-76YbqHolzer Medical Center – JacksonComment on above:Performed By: #### TSH, FT3 #### [facility] [address] [place] [address] Dr. Sami Costaesterol in LDL [Mass/Vol]49.0 mg/dLLouis Stokes Cleveland VA Medical CenterComment on above:Performed By: #### TSH, FT3 #### [facility] [address] [place] [address] Dr. Sami Mcdaniel.total/Cholesterol in HDL [Mass ratio]3.5 {ratio} NormalHolzer Medical Center – JacksonComment on above:Performed By: #### TSH, FT3 #### [facility] [address] [place] [address] Dr. Sami Scales NORMAL> or = 60 mg/dl - LOW CARDIOVASCULAR RISK <40 mg/dl - HIGH CARDIOVASCULAR RISKLouis Stokes Cleveland VA Medical CenterComment on above:Performed By: #### TSH, FT3 #### [facility] [address] [place] [address] Dr. Sami Faulkner CALC NORMALSEE BELOWLouis Stokes Cleveland VA Medical CenterComment on above:Result Comment: <100 mg/dl OPTIMAL 100 - 129 mg/dl NEAR OR ABOVE OPTIMAL 130 - 159 mg/dl BORDERLINE HIGH 160 - 189 mg/dl HIGH >190 mg/dl VERY HIGH Performed By: #### TSH, FT3 #### [facility] [address] [place] [address] Dr. Sami WilliamTriglyceride [Mass/Vol]145 mg/dLNormal<=150The [facility] Comment on above:Performed By: #### TSH, FT3 #### [facility] [address] [place] [address] Dr. Sami WilliamVLDL CALC29.0 mg/dLNoFisher-Titus Medical CenterComment on above: Performed By: #### TSH, FT3 #### [facility] [address] [place] [address] Dr. Sami WilliamMAGNESIUMon 06-32-5208Hqxxhylzp [Mass/Vol]2.1 mg/dLNormal1.8-2.4 The [facility]Comment on above:Performed By: #### TSH, FT3 #### [facility] [address] [place] [address] Dr. Sami WilliamPROF 14(COMP METB)on 88-76-4663Pmsxyaq [Mass/Vol]3.7 g/dLNormal 3.4-5.0The [facility]ullComment on above:Performed By: #### TSH, FT3 #### [facility] [address] [place] [address] Dr. Sami WilliamAlbumin/Globulin [Mass ratio]1.0 {ratio}NormalThe [facility]ullComment on above:Performed By: #### TSH, FT3 #### [facility] [address] [place] [address] Dr. Sami WilliamALP [Catalytic activity/Vol]66 U/KXvzxxo25-914Ett [facility]Comment on above:Performed By: #### TSH, FT3 #### [facility] [address] [address] [address] Sami Chacon [Catalytic activity/Vol]33 U/FRatlyb25-32Bib [facility]ullComment on above:Performed By: #### TSH, FT3 #### [facility] [address] [address] [address] Sami Toddon gap [Moles/Vol]12.1 mmol/LNormalThe [facility] Comment on above:Performed By: #### TSH, FT3 #### [facility] [address] [address] [address] Sami WilliamAST [Catalytic activity/Vol]35 U/KVmjqun54-62Xfu [facility]ullComment on above:Performed By: #### TSH, FT3 #### [facility] [address] [place] [address] Dr. Sami WilliamBilirubin [Mass/Vol]0.2 mg/dLNormal0.2-1.0The [facility] Comment on above:Performed By: #### TSH, FT3 #### [facility] [address] [address] [address] Sami WilliamCalcium [Mass/Vol]9.4 mg/dLNormal8.5-10.1[facility] Comment on above:Performed By: #### TSH, FT3 #### [facility] [address] [address] [address] Sami WilliamChloride [Moles/Vol]103 mmol/ISxcmoi70-948Wyb [facility] Comment on above:Performed By: #### TSH, FT3 #### [facility] [address] [address] [address] Sami WilliamCO2 [Moles/Vol]30.9 mmol/RWucnsd27.0-32.0The [facility] Comment on above:Performed By: #### TSH, FT3 #### [facility] [address] [place] [address] Dr. Sami WilliamCreatinine [Mass/Vol]1.18 mg/dLCritically high0.55-1.02The [facility]Comment on above:Performed By: #### TSH, FT3 #### [facility] [address] [place] [address] Dr. Sami SanchezGFR-AF KICHCOPU00 mL/min/1.79y3Kfihmbonez low>=60The [facility]ullComment on above:Performed By: #### TSH, FT3 #### [facility] [address] [place] [address] Dr. Sami SanchezGFR-NON AF DNXIGWIB75 mL/min/1.73b5Dejszoabvw low>=60The [facility]ullComment on above:Performed By: #### TSH, FT3 #### [facility] [address] [place] [address] Dr. Sami WilliamGlobulin (S) [Mass/Vol]3.8 g/dLNormalThe [facility]ullComment on above:Performed By: #### TSH, FT3 #### [facility] [address] [place] [address] Dr. Sami WilliamGlucose [Mass/Vol]113 mg/dLCritically gdwm29-071Qew [facility]ullComment on above:Performed By: #### TSH, FT3 #### [facility] [address] [place] [address] Dr. Sami WilliamPotassium [Moles/Vol]4.0 mmol/LNormal3.5-5.1[facility] Comment on above:Performed By: #### TSH, FT3 #### [facility] [address] [place] [address] Dr. Sami WilliamProtein [Mass/Vol]7.5 g/dLNormal6.4-8.2The [facility] Comment on above:Performed By: #### TSH, FT3 #### [facility] [address] [place] [address] Dr. Sami WilliamSodium [Moles/Vol]142 mmol/YJgzcfh631-083DkhHolzer Medical Center – [place] Comment on above:Performed By: #### TSH, FT3 #### [facility] [address] [place] [address] Dr. Sami WilliamUrea nitrogen [Mass/Vol]28.0 mg/dLCritically high7.0-18.0[facility] Centerment on above:Performed By: #### TSH, FT3 #### [facility] [address] [place] [address] Dr. Sami Willams nitrogen/Creatinine [Mass ratio]23.7 mg/mgNoFisher-Titus Medical CenterComment on above:Performed By: #### TSH, FT3 #### [facility] [address] [place] [address] Dr. Sami Rivera 98-72-1705YEM4.046 uIU/mLCritically high0.358-3.740The [facility] on above:Performed By: #### TSH, FT3 #### [facility] [address] [place] [address] Dr. Sami WilliamVITAMIN D 25 OHon 10-11-0893QSL D 25-OH118.0 ng/mLNormalThe [facility]ullComment on above:Performed By: #### VITAD, FT4 #### [facility] [address] [place] [address] Dr. Sami Richardson [place]ANGES[place] BELOWLouis Stokes Cleveland VA Medical CenterComformerly [facility] on above: Result Comment: <20 ng/mL Vit D deficient 20 - <30 ng/mL Vit D insufficient 30 - 100 ng/mL Vit D sufficient >100 ng/mL Potential ToxicityPerformed By: #### VITAD, FT4 #### [facility] [address] [place] [address] Dr. Sami Mcgarry T3on 08-44-9805CJTF T33.44 pg/mlLNormal2.18-3.98[facility] on above:Performed By: #### TSH, FT3 #### [facility] [address] [place] [address] Dr. Sami Vega T3on 97-69-8283Wwoykxq T3, Serum18.8 ng/dLNormal9.2-24.1 [facility] on above:Result Comment: This test was developed and its performance characteristics determined by [facility]. It has not been cleared or approved by the Food and Drug Administration.Performed By: #### CBC #### [facility] [address] [place] [address] Dr. Sami WilliamT3, TOTAL (TRIIODOTHYRONINE)on 34-11-2096R4, VUHJP916 ng/dLNormal 71-180The [facility]ullComment on above:Performed By: #### S8SLCAR #### [facility] [address] [place] [address] Dr. Sami WilliamFRJUAN LUIS T3on 44-38-2061WISY T32.81 pg/mlLNormal2.18-3.98The [facility]Comment on above:Performed By: #### TSH, FT3 #### [facility] [address] [place] [address] Dr. Sami Mcgarry T4on 56-63-4167Raur T4 [Mass/Vol]1.05 ng/dLNormal0.76-1.46 The [facility]Comment on above:Performed By: #### CBC #### [facility] [address] [place] [address] Dr. Sami WilliamTSHojessica 10-47-2947AAV2.431 uIU/mLNormal0.358-3.740The [facility] on above:Performed By: #### TSH, FT3 #### [facility] [address] [place] [address] Dr. Sami WilliamCARDIAC CATHETERIZATIONon 23-92-8267Gvfsc[place] [address] CARDIAC CATHETERIZATION PATIENT NAME: PATRICIA BLAKE : 1950 MED REC NO: [id number] ROOM: ACCOUNT NO: [id number] ADMIT DATE: 02/12/2022 PROVIDER: Niru Galindo DATE [...] with 100 joules. NIRU GALINDO LUCAS/Tung_TACEVANGELIST_01 Doc#: [id number] CC:NormalMerCabrini Medical CenterFree T3on 41-69-3906VT40.02 pg/mLNormal2.00-4.40 [facility] HospitalComment on above:Performed By: #### FT3, FT4, TSH #### [facility] [address], [place] [id number] T4on 87-31-9047Qeum T4 [Mass/Vol]0.93 ng/dLNormal 0.80-1.80NortSelect Medical Cleveland Clinic Rehabilitation Hospital, BeachwoodComment on above:Performed By: #### FT3, FT4, TSH #### [facility] [address], [place] [id number] - T3 TOTALon 13-11-9775C1, YIXMP574 ng/rFIewoxd53-002 [facility] HospitalComment on above:Order Comment: [facility] performed at: [employer], [email or web address] [facility], [address] [place] [address], [address] [place] [address], [id number], Secondary Connector Armature: Jaylon Bagley MD [facility] Collection Date/Time: [facility] Results Received Date/Time: [facility] Reported Date/Time: [id number] By: #### 859X, [id number] #### [facility] Default [address] [place], [place] [address]K - T3,REVERSE,LC/MS/MSon 85-18-6761K3 REVERSE, LC/MS/MS15 ng/dL Normal8-25NortSelect Medical Cleveland Clinic Rehabilitation Hospital, BeachwoodComment on above:Order Comment: [facility] performed at: [facility] [email or web address], [address], [place], [place], , Secondary Connector Armature: Gian Collins M.D.,PhD [facility] Collection Date/Time: [id number] [facility] Results Received Date/Time: [facility] Reported Date/Time: [id number] Comment: This test was developed and its analytical performance characteristics have been determined by [email or web address] [place], [place]. It has not been cleared or approved by the U.S. Food and Drug Administration. This assay has been validated pursuant to the CLIA regulations and is used for clinical purposes.Performed By: #### 859X, 35155 #### [facility] [address] [place], [place] [address]RYYns 65-69-7813EWV7.920 uIU/mLNormal0.400-4.500Northern Backus HospitalComment on above:Performed By: #### FT3, FT4, TSH #### [facility] [address] [place], [place] [id number] Auto DifferentialOrdered By: Pacheco Galindo on 07-12-2021 Absolute Eos #0.10[facility] ColumbusLenddo Phone: absolute Immature GranulocyteNOT REPORTEDSelect Medical Specialty Hospital - ColumbusLenddo Phone: absolute Lymph #1.70[facility] Phone: absolute [place] #0.40[facility] Phone: basophils (Bld) [#/Vol]0.00 10*3/uLSelect Medical Specialty Hospital - ColumbusLenddo Phone: basophils/100 WBC (Bld)1 %0 - 2 %[employer] Phone: differential TypeYESMercFat [employer] Work Phone: eosinophils/100 WBC (Bld)2 %0 - 5 %[employer] Phone: Hematocrit (Bld) [Volume fraction]35.0 %Low36 - 46 % [employer] Phone: Hemoglobin.gastrointestinal spec 1 Ql (Stl)11.4 g/dL Low12.0 - 16.0 g/dLFarmeto Phone: Immature GranulocytesNOT REPORTED0 %[employer] Phone: Interpretation and review of laboratory results AbnormalSelect Medical Specialty Hospital - ColumbusLenddo Phone: lymphocytes/100 WBC (Bld)25 %15 - 40 %[employer] Phone: MCH (RBC) [Entitic mass]26.4 pg26 - 34 pgSelect Medical Specialty Hospital - ColumbusLenddo Phone: MCHC (RBC) [Mass/Vol]32.6 g/dL31 - 37 g/dLSelect Medical Specialty Hospital - ColumbusLenddo Phone: MCV (RBC) [Entitic vol]80.9 fL80 - 100 fLFarmeto Phone: Monocytes/100 WBC (Bld)7 %4 - 8 %[employer] Phone: NRBC AutomatedNOT REPORTEDper 100 WBCSelect Medical Specialty Hospital - ColumbusLenddo Phone: platelet distribution width (Bld) [Ratio]17.2 %High 12.1 - 15.2 %[employer] Phone: platelet EstimateNOT REPORTEDSelect Medical Specialty Hospital - ColumbusLenddo Phone: platelet mean volume (Bld) [Entitic vol]NOT REPORTED 6.0 - 12.0 fLFarmeto Phone: platelets (Bld) [#/Vol]187 10*3/uLFarmeto Phone: RBC (Bld) [#/Vol]4.33 10*6/uL4.0 - 5.2 m/[employer] Phone: RBC (Bld) [#/Vol]NOT REPORTEDSelect Medical Specialty Hospital - ColumbusLenddo Phone: segmented neutrophils/100 WBC (Bld)65 %47 - 75 %[employer] Phone: Segs Absolute4.50[facility] Phone: WBC (Bld) [#/Vol]6.8 10*3/uLMerLenddo Phone: WBC (Bld) [#/Vol]NOT REPORTEDSelect Medical Specialty Hospital - ColumbusiOpener Work Phone: [facility] Phone: comprehensive Metabolic PanelOrdered By: Pacheco Galindo on 07-11-7139Lcvhtol [Mass/Vol]4.6 g/dL3.5 - 5.2 g/dLSelect Medical Specialty Hospital - ColumbusLenddo Phone: albumin/Globulin RatioNOT REPORTEDMerLenddo Phone: aLP (Bld) [Catalytic activity/Vol]78 U/L35 - 104 U/L [employer] Phone: HLT [Catalytic activity/Vol]25 U/L5 - 33 U/LMCurb Call Work Phone: anion gap [Moles/Vol]12 mmol/L9 - 17 mmol/LMCurb Call Work Phone: aST [Catalytic activity/Vol]28 U/L<32MerL[employer] Phone: bilirubin [Mass/Vol]0.17 mg/dLLow0.30 - 1.20 mg/dL [employer] Phone: Kalcium [Mass/Vol]10.4 mg/dL8.6 - 10.4 mg/dLSelect Medical Specialty Hospital - ColumbusLenddo Phone: Qhloride [Moles/Vol]103 mmol/L98 - 107 mmol/LMCurb Call Work Phone: NO2 [Moles/Vol]26 mmol/L20 - 31 mmol/LMInRoom Broadcastingy [employer] Work Phone: creatinine [Mass/Vol]0.89 mg/dL0.50 - 0.90 mg/dLSelect Medical Specialty Hospital - ColumbusLenddo Phone: Free PSA/Total PSA [Mass fraction]7.5 g/dL6.4 - 8.3 g/dLSelect Medical Specialty Hospital - ColumbusLenddo Phone: GFR >60>60 mL/minSelect Medical Specialty Hospital - ColumbusLenddo Phone: GFR Non->60>60 mL/minSelect Medical Specialty Hospital - ColumbusLenddo Phone: GFR/1.73 sq M.predicted MDRD (S/P/Bld) [Vol rate/Area] [employer] Phone: comment on above:Average GFR for 70 or more years old: 75 mL/min/1.73sq m Chronic Kidney Disease: <60 mL/min/1.73sq m Kidney failure: <15 mL/min/1.73sq m eGFR calculated using average adult body mass. Additional eGFR calculator available at: http://www.Agitar/multiple_crcl_2012.htm GFR/1.73 sq M.predicted MDRD (S/P/Bld) [Vol rate/Area]NOT REPORTEDSelect Medical Specialty Hospital - ColumbusLenddo Phone: Glucose [Mass/Vol]109 mg/bUTprl45 - 99 mg/dLSelect Medical Specialty Hospital - ColumbusLenddo Phone: Interpretation and review of laboratory results AbnormalSelect Medical Specialty Hospital - ColumbusLenddo Phone: potassium [Moles/Vol]4.3 mmol/L3.7 - 5.3 mmol/LMour lady of mercy hospital - andersony [employer] Phone: sodium [Moles/Vol]141 mmol/L135 - 144 mmol/LMour lady of mercy hospital - andersony [employer] Phone: Urea nitrogen (BldV) [Mass/Vol]21 mg/dL8 - 23 mg/dL [facility] Phone: Urea nitrogen/Creatinine (Bld) [Mass ratio]24HighSelect Medical Specialty Hospital - ColumbusLenddo Phone: No Panel InformationOrdered By: Pacheco Galindo on 96-28-2200[facility] Work Phone: TSH with ReflexOrdered By: Pacheco Galindo on 07-12-2021 TSH Qn4.58 m[IU]/[employer] Work Phone: eKG 12 LeadOrdered By: Pacheco Galindo on 06-11-2021 Atrial Rgfd736NMVFcsez Health Work Phone: Q-T Erqkrslr633 [employer] Work Phone: QRS Vgsnwsyp01 [employer] Work Phone: QTc Calculation (Sinan)475 [employer] Work Phone: r Ukbk27ssmnazmQmpulAgilOne Phone: T Rlsn14iydoevaDcuxmGlobal [employer] Phone: Ventricular Rmqf280GISDlabp Health Work Phone: atrial fibrillation with rapid ventricular response Abnormal ECG When compared with ECG of 17-MAY-2019 09:24, Atrial fibrillation has replaced Sinus rhythm Vent. rate has increased BY 45 BPM [facility] Phone: edi, [facility] Incoming Ekg Results From [employer] - 06/11/2021 4:17 PM EDT Atrial fibrillation with rapid ventricular response Abnormal ECG When compared with ECG of 17-MAY-2019 09:24, Atrial fibrillation has replaced Sinus rhythm Vent. rate has increased BY 45 BPMSelect Medical Specialty Hospital - ColumbusLenddo Phone: [facility] Phone: atrial Rwtr88TZWMpahx Health Work Phone: [phone] Ewvg10kscvkwvYngihAgilOne Phone: N-R Irkgrbdi048 [employer] Phone: Q-T Vkvnfimw655 [employer] Phone: QRS Rguzimuq15 [employer] Phone: QTc Calculation (Bazett)423 msMtrinity health system [employer] Work Phone: r Leze01wxercvkFxhgo [employer] Phone: T Dbhx27ckxsgjhKzzyj [employer] Phone: Ventricular Agyp00SJDVxgbq [employer] Phone: Poor data quality, interpretation may be adversely affected Normal sinus rhythm Cannot rule out Anterior infarct , age undetermined Abnormal ECG When compared with ECG of 11-JUN-2021 10:00, (unconfirmed) Sinus rhythm has replaced Atrial fibrillation Vent. rate has decreased BY 39 BPM [facility] Phone: eекатерина, [facility] Incoming Ekg Results From [employer] [place] - 06/11/2021 4:17 PM EDT Poor data quality, interpretation may be adversely affected Normal sinus rhythm Cannot rule out Anterior infarct , age undetermined Abnormal ECG When compared with ECG of 11-JUN-2021 10:00, (unconfirmed) Sinus rhythm has replaced Atrial fibrillation Vent. rate has decreased BY 39 BPMSelect Medical Specialty Hospital - ColumbusLenddo Phone: [facility] [employer] Phone: pOC Glucoseon 52-00-5432Jcssiub [Mass/Vol]132 mg/dL High65 - 99 mg/dLOhioHealthInterpretation and review of laboratory results AbnormalOhioHealthCBC Auto Differentialon 06-24-3145Aiwhunzdy (Bld) [#/Vol]0.00 10*3/uLBrown [facility] Hospital, KYBasophils/100 WBC (Bld)0 %0 - 2 %[facility], [place] Differential TypeYESMSt. Francis Hospital, KYEosinophils (Bld) [#/Vol]0.10 10*3/uL [facility], KYEosinophils/100 WBC (Bld)2 %0 - 5 %[facility], [place] Erythrocyte distribution width (RBC) [Ratio]16.0 %High12.1 - 15.2 %[facility], KYHematocrit (Bld) [Volume fraction]33.4 %Low36 - 46 %[place], [place] Hemoglobin (Bld) [Mass/Vol]10.8 g/dLLow12 - 16 g/dLChurch [place], [place] Interpretation and review of laboratory resultsAbnormalChurch [place], [place] Lymphocytes (Bld) [#/Vol]1.90 10*3/[facility] WYLymphocytes/100 WBC (Bld)26 %15 - 40 %[facility] CenterH (RBC) [Entitic mass]26.6 pg26 - 34 pg [facility], WYMCHC (RBC) [Mass/Vol]32.4 g/dL31 - 37 g/dLBrown Memorial Hospital, WYMCV (RBC) [Entitic vol]82.2 fL80 - 100 fLBrown Memorial Hospital WYMonocytes (Bld) [#/Vol]0.50 10*3/[facility], WYMonocytes/100 WBC (Bld)8 %4 - 8 %[facility] WYPlatelet mean volume (Bld) [Entitic vol]NOT REPORTED6 - 12 fLBrown Memorial Hospital, WYPlatelets (Bld) [#/Vol]209 10*3/[facility], WYPlatelets (Bld) [#/Vol]NOT REPORTEDBrown [facility], WYRBC (Bld) [#/Vol]4.07 10*6/uL4 - 5.2 m/[facility], WYRBC morphology finding Nom (Bld)NOT REPORTEDBrown [facility] Hospital, WYSegmented neutrophils/100 WBC (Bld)64 %47 - 75 %[facility], WYSegs Absolute4.60[facility], WYWBC (Bld) [#/Vol]NOT REPORTEDper 100 WBC [facility], WYWBC (Bld) [#/Vol]7.2 10*3/[facility], WYWBC MorphologyNOT REPORTEDBrown Memorial Hospital WYComprehensive Metabolic Panelon 75-54-5780Ejlohpe [Mass/Vol]4.5 g/dL3.5 - 5.2 g/dLMercy Health- [place], [place] Albumin/Globulin [Mass ratio]NOT REPORTEDBrown [facility], KYALP [Catalytic activity/Vol]76 U/L35 - 104 U/LMSt. Francis Hospital, KYALT [Catalytic activity/Vol] 16 U/L5 - 33 U/LMThe [facility] [place], KYAnion gap [Moles/Vol]12 mmol/L9 - 17 mmol/L [facility], KYAST [Catalytic activity/Vol]20 U/L<32[facility], [place] Bilirubin Ql (U)0.27 mg/dLLow0.3 - 1.2 mg/dLBrown [facility] Hospital, KYBun/Cre Ratio37 HighBrown Memorial Hospital, KYCalcium [Mass/Vol]10.8 mg/dLHigh8.6 - 10.4 mg/dLBrown [facility] Hospital, KYChloride [Moles/Vol]104 mmol/L98 - 107 mmol/LMSt. Francis Hospital, [place] CO2 [Moles/Vol]26 mmol/L20 - 31 mmol/LMSt. Francis Hospital, KYCreatinine [Mass/Vol] 0.78 mg/dL0.5 - 0.9 mg/dLBrown [facility] Hospital, KYGFR >60>60 mL/min [facility], KYGFR Non->60>60 mL/minBrown Memorial Hospital, [place] GFR/1.73 sq M predicted among non-blacks MDRD (S/P/Bld) [Vol rate/Area]NOT REPORTEDBrown Memorial Hospital, WYGFR/1.73 sq M predicted among non-blacks MDRD (S/P/Bld) [Vol rate/Area][facility], KYComment on above:Average GFR for 70 or more years old: 75 mL/min/1.73sq m Chronic Kidney Disease: <60 mL/min/1.73sq m Kidney failure: <15 mL/min/1.73sq m eGFR calculated using average adult body mass. Additional eGFR calculator available at: http://www.Agitar/multiple_crcl_2012.htm Glucose [Mass/Vol]124 mg/gTIagn43 - 99 mg/dLBrown Memorial Hospital, KYPotassium [Moles/Vol]4.0 mmol/L3.7 - 5.3 mmol/LMSt. Francis Hospital, WYProtein [Mass/Vol]8.2 g/dL6.4 - 8.3 g/dLBrown Memorial Hospital, WYSodium [Moles/Vol]142 mmol/L135 - 144 mmol/LMSt. Francis Hospital, WYUrea nitrogen [Mass/Vol]29 mg/dLHigh8 - 23 mg/dL[place], KYLipid Panelon 53-06-9848Xmqdhxggfwv [Mass/Vol]112 mg/dL<200[place], KYComment on above: Cholesterol Guidelines: <200 Desirable 200-240 Borderline >240 Undesirable Cholesterol in HDL [Mass/Vol]34 mg/dLLow>40[place], KYComformerly [facility] on above: HDL Guidelines: <40 Undesirable 40-59 Borderline >59 Desirable Cholesterol in LDL [Mass/Vol]55 mg/dL0 - 130 mg/dLChurch [place], KYComformerly [facility] on above: LDL Guidelines: <100 Desirable 100-129 Near to/above Desirable 130-159 Borderline >159 Undesirable Direct (measured) LDL and calculated LDL are not interchangeable tests. Cholesterol in VLDL [Mass/Vol]NOT REPORTED1 - 30 mg/dL[place], [place] Cholesterol.total/Cholesterol in HDL [Mass ratio]3.3 {ratio}<5[place], KYTriglyceride [Mass/Vol]113 mg/dL<150[place], KYComformerly [facility] on above: Triglyceride Guidelines: <150 Desirable 150-199 Borderline 200-499 High >499 Very high Based on AHA Guidelines for fasting triglyceride, June 2012. Otheron 72-15-0545Doftlulcncflyk and review of laboratory resultsAbnormalBrown Memorial Hospital, WYImmature granulocytes (Bld) [#/Vol]NOT REPORTED[place], KYPatient Fasting?on 22-20-8950Wghsgsr Fasting?yes[place], [place] Vital Signs Date TimeVital SignValuePerforming EtgnkufowCyiqryls25-00-0829 13:57-0400Body drscyb720.6 Judy Laguna MD Work Phone: [facility]amar[facility] HospitalUamyoxfkoz04-22-2757 13:57-0400Body mass index (BMI) [Ratio]41.5 kg/j7QhjbmkAashish Laguna MD Work Phone: 1(216)[address] [place], [place] 8133210-23-2025 13:57-0400Body uvuhdp65.63 kgAashish Laguna MD Work Phone: 1(522)[facility] [place], [place] [address]Kdmyatkxdb17-05-3738 13:57-0400Diastolic blood qbihgbhb45 mm[Hg]Aashish Laguna MD Work Phone: 1(913)[facility] [place], [place] [address]Xfvantypup43-40-1543 13:57-0400Heart rate67 /min Aashish Laguna MD Work Phone: 1(647)[facility] [place], [place] [address]Xtqlkqggrr66-76-9287 13:57-5293NwP7% (BldA) [Mass fraction]97 %Aashish Laguna MD Work Phone: 1(115)[facility] [place], [place] [address]Raesuxkukn49-06-8112 13:57-0400Systolic blood jwmelijf266 mm[Hg]Aashish Laguna MD Work Phone: 1(435)[address] [place], [place] 8133208-21-2025 14:22-0400Body ibiyru951.6 cmEnahum Laguna MD Work Phone: 1(877)[address] [place], [place] 8133208-21-2025 14:22-0400Body mass index (BMI) [Ratio]42.32 kg/k8AyuibsAashish Laguna MD Work Phone: 1(416)[address] [place], [place] 8133208-21-2025 14:22-0400Body .44 kgAashish Laguna MD Work Phone: 1(964)[address] [place], [place] 8133208-13-2025 14:01-0400Body sogvyp535.6 Judy Laguna MD Work Phone: 1(148)[address] [place], [place] 8133208-13-2025 14:01-0400Body mass index (BMI) [Ratio]42.42 kg/e3BejehhAashish Laguna MD Work Phone: 1(956)[facility] [place], [place] [address]Gbkyzcdnes87-10-7191 14:01-0400Body nlmorl31.67 kgAashish Laguna MD Work Phone: 1(450)[address] [place], [place] 8133205-08-2025 14:31-0400Body fenqpu399.6 cmEnahum Laguna MD Work Phone: [phone] [place], [place] [address]Zrndnghwiw13-56-0541 14:31-0400Body mass index (BMI) [Ratio]41.42 kg/q8KuycfvAashish Laguna MD Work Phone: 1(504)[address]05-08-2025 14:31-0400Body yjkwjy91.44 kgAashish Laguna MD Work Phone: 1(607)[address] [place], [place] [address]Fqhthspnhm50-81-9766 14:31-0400Diastolic blood yxfccxrp00 mm[Hg]Aashish Laguna MD Work Phone: 1(704)[address]05-08-2025 14:31-0400Heart rate95 /min Aashish Laguna MD Work Phone: 1(657)[address] [place], [place] [address]Lfqhbwdigh95-42-1039 14:31-8669EbC8% (BldA) [Mass fraction]98 %Aashish Laguna MD Work Phone: 1(821)[address] [place], [place] [address]Rbrswyjqgy81-63-6940 14:31-0400Systolic blood yixzoydr945 mm[Hg]Aashish Laguna MD Work Phone: 1(154)[address]04-21-2025 11:38-0400Body uhkamh338.6 Judy Laguna MD Work Phone: 1(843)[address] [place], [place] [address]Wokwtzkzun31-69-7642 11:38-0400Body mass index (BMI) [Ratio]42.32 kg/b9RicghrAashish Laguna MD Work Phone: 1(022)[address] [place], [place] [address]Ceiyfmcaed62-41-9102 11:38-0400Body mfayan88.44 kgAashish Laguna MD Work Phone: 1(487)[address] [place], [place] [address]Xoitaeoyjn49-63-4681 11:38-0400Heart nyml094 /min Aashish Laguna MD Work Phone: 1(743)[address] [place], [place] [address]Kxqttwrojh44-87-1558 11:38-4179OoF5% (BldA) [Mass fraction]97 %Aashish Laguna MD Work Phone: 1(145)[address]02-18-2025 14:32-0500Body cqolnd849.8 cmEnahum Laguna MD Work Phone: [facility] CenterEstlvloeir09-50-3933 14:32-0500Body mass index (BMI) [Ratio]40.96 kg/d2UwfwgnAashish Laguna MD Work Phone: [facility] CenterEpeozwrptb52-10-8430 14:32-0500Body nxcrma67.35 kgAashish Laguna MD Work Phone: [facility] CenterWuykaxhufg62-61-0108 13:34-0500Body zsbalb604.6 cmWicyndi Ramsey DO Work Phone: [facility] CenterGdetqkriwh11-27-7677 13:34-0500Body mass index (BMI) [Ratio]42.73 kg/i5QecvyhgAngel Ramsey DO Work Phone: [facility] CenterBvlvegzhfj64-97-3193 13:34-0500Body .35 kgWicyndi Ramsey DO Work Phone: [facility] CenterOaagqnorna02-49-0900 13:34-0500Diastolic blood zfvkzype67 mm[Hg]Angel Ramsey DO Work Phone: [facility] CenterVgeicwztbv41-50-0181 13:34-0500Systolic blood rmiyahay031 mm[Hg]Angel Ramsey DO Work Phone: [facility] CenterFvsmrllocm86-78-5286 14:25-0500Body gfejxn411.8 cmEnahum Laguna MD Work Phone: [facility] CenterLrrpclzuwm27-90-0697 14:25-0500Body mass index (BMI) [Ratio]43.13 kg/h9SyrqtoAashish Laguna MD Work Phone: 1(897)278-[address] [place], [place] [address]Yaaohoqynq42-78-5059 14:25-0500Body yfahyc81.34 kgAashish Laguna MD Work Phone: 1(266)422-[address] [place], [place] [address]Gwbbmrlhgw75-97-8168 14:25-0500Diastolic blood knwqbwda70 mm[Hg]Aashish Laguna MD Work Phone: [place] [address]Bnkzhixpvy62-58-0806 14:25-0500Heart rate82 /min Aashish Laguna MD Work Phone: 1(567)[address] [place], [place] 8133211-13-2024 14:25-3755PfN8% (BldA) [Mass fraction]98 %Aashish Laguna MD Work Phone: 1(009)[address] [place], [place] 8133211-13-2024 14:25-0500Systolic blood juxduyom702 mm[Hg]Aashish Laguna MD Work Phone: 1(790)[address] [place], [place] 8133209-04-2024 14:21-0400Body zpatfy774.8 cmEnahum Laguna MD Work Phone: 1(128)[address] [place], [place] 8133209-04-2024 14:21-0400Body mass index (BMI) [Ratio]43.13 kg/n8NtakslAashish Laguna MD Work Phone: 1(689)[address] [place], [place] 8133209-04-2024 14:21-0400Body niylnf09.34 kgAashish Laugna MD Work Phone: 1(486)[address] [place], [place] 8133208-27-2024 14:29-0400Body wneyns207.8 cmEnahum Laguna MD Work Phone: 1(694)[address] [place], [place] 8133208-27-2024 14:29-0400Body mass index (BMI) [Ratio]43.13 kg/x3DajldzAashish Laguna MD Work Phone: 1(078)[address] [place], [place] 8133208-27-2024 14:29-0400Body .34 kgAashish Laguna MD Work Phone: 1(187)[address] [place], [place] 8133202-07-2024 13:56-0500Body jijhuo119.8 cmEnahum Laguna MD Work Phone: 1(528)[address] [place], [place] 8133202-07-2024 13:56-0500Body mass index (BMI) [Ratio]41.75 kg/h1FidiwdAashish Laguna MD Work Phone: 1(444)[address] [place], [place] 8133202-07-2024 13:56-0500Body nobmsp46.16 kgAashish Laguna MD Work Phone: 1(969)[address] [place], [place] 8133201-10-2023 10:22-0500Diastolic blood mdlrevuq42 mm[Hg][facility]01-10-2023 10:22-0500Heart rate 102 /minMwh [facility]01-10-2023 10:22-0500Systolic blood pgsuzsvj555 mm[Hg][facility]06-22-2022 13:23-0400Blood Pressure LocationJENNIFER LOUANN [facility] 06-22-2022 13:23-0400Diastolic blood mm[Hg] FRED LEW [facility] 06-22-2022 13:23-0400Heart rate72 /minLANDYNNIFER LOUANN [facility] 06-22-2022 13:23-0400Systolic blood duyvwxda046 mm[Hg] FRED LEW [facility] 06-07-2022 11:14-0400Diastolic blood bexacvzn03 mm[Hg] [facility]06-07-2022 11:14-0400Heart rate67 /minMwh [facility]06-07-2022 11:14-0400Respiratory rate18 /minMwh [facility]06-07-2022 11:14-7007ZdQ3% (BldA) [Mass fraction]98 %[facility]Republic [facility] HEALTHNHVPNC09-07-7914 11:14-0400Systolic blood czydrfad294 mm[Hg] [facility]10-04-2021 11:42-0400Diastolic blood zgefeqqq53 mm[Hg][facility] [employer] Work Phone: 1(200) 120-871910-04-2021 11:42-0400Heart rate83 /minMwh [facility] Work Phone: 1(363) 585-216510-04-2021 11:42-0400Respiratory rate21 /[facility] Work Phone: 1(239) 942-141510-04-2021 11:42-0668GsM9% (BldA) [Mass fraction]96 % [facility] Work Phone: 1(366) 357-280210-04-2021 11:42-0400Systolic blood vjtfxgzy147 mm[Hg] [facility] Work Phone: 1(343) 617-478709-11-2019 10:52-0400BP Tbdnhtjjl82 mm[Hg]Niru IlgvefgLxslNuhzno67-14-9670 10:52-0400BP Eakhldrn207 mm[Hg]Niru [facility] LasersMercy Health St[facility] Vincent Medical CenterLbpsFoajwr04-35-9865 10:52-0400Pulse (Heart Rate)60 /minNorth Vernon Valon LasersMercy Health St[facility] Vincent Medical CenterJsxjXiqrcu23-84-7957 10:52-0400Pulse Orvhajlx54 %[place] [facility] 05-19-2019 06:25-0400BMI (Body Mass Index)43.61 kg/q4Kwamgae [facility]ersWay[facility] 05-19-2019 06:25-0400Body zgowat924.69 kgNorth [place] JacecavXpdfRoabof08-64-8098 06:25-5890Laiitd644.9 cmNorth [place] JmbmefbWlzxSgsbuv03-50-5396 06:25-0400 Respiratory Rate16 /minMercyOne Dubuque Medical CenterHhaisnrVwhfGpwbkd72-64-1271 06:25-0400Body Iftqtqppais19.9 [degF]Niru [facility]ersWay[facility] Encounters Encounter DateEncounter TypeCare ProviderFacilityStart: 07-07-2025 End: 44-08-6508coznwbbtjqByfqyjh P COOKFacility:FTMCStart: 06-30-2025 End: 15-08-6485Kdguywiza Laguna MD Work Phone: [facility] Family MedicineStart: 06-30-2025 End: 08-09-5243Dzrmfetiarra Laguna MD Work Phone: [facility] Family MedicineStart: 06-30-2025 End: 67-82-9940Lqxcau outpatient visit 25 minutesEdramu Laguna MD Work Phone: NO Davidkain Swann [facility] Of GeorgiaComment on above: Essential hypertension (Primary Dx); Stage 3a chronic kidney disease ([facility]-HCC); Hyperlipidemia, mixed; Type 2 diabetes mellitus with stage 3a chronic kidney disease, without long-term current use of insulin (HCC); Microalbuminuric diabetic nephropathy (HCC); Hyperuricemia; Pulmonary hypertension (HCC); Recurrent major depressive disorder, in partial remission; Coronary artery disease involving united auburn coronary artery of united auburn heart without angina pectoris; Morbid obesity ([facility]-HCC)Start: 06-30-2025 End: 73-09-1463qnxixeytkyBQWTWZ J HEMEYERNot AvailableStart: 06-21-2025 End: 78-07-9464wtrkaekeudWydmmb X OrzechFacility:FTMCStart: 06-21-2025 End: 20-52-4536oyipnqbmswOhvuag X OrzechFacility:EU SanduskyStart: 06-21-2025 End: 78-04-2812Ygswijh encounter procedureAurora X Orzech [facility] Start: 04-28-2025 End: 94-33-5436hzjaldrranBJIGMN J HEMEYERNot AvailableStart: 04-28-2025 End: 20-23-1973Vrvvab flowsMina Laguna MD Work Phone: [facility] MedicineStart: 04-28-2025 End: 96-19-7640Weozla flowsMina Laguna MD Work Phone: [facility] David [facility] MedicineStart: 04-28-2025 End: 90-49-1028Aujqytp encounter procedureAashish Laguna MD Work Phone: [facility] David [facility] MedicineComment on above: Bilateral chronic knee pain (Primary Dx); Arthritis of knee, right; Arthritis of knee, left; Morbid obesity (CMS-HCC); BMI 40.0-44.9, adult ([facility])Start: 04-20-2025 End: 85-43-6216Bcqaga Tr Laguna MD Work Phone: [facility] MedicineStart: 04-20-2025 End: 1949Xocuim Tr Laguna MD Work Phone: NORE [facility] MedicineStart: 04-20-2025 End: 99-59-8679Guqvwx outpatient visit 25 minutesAashish Laguna MD Work Phone: NOIL [facility] [address] [facility] MedicineComment on above: Acquired hypothyroidism (Primary Dx); ESS (euthyroid sick syndrome); Chronic fatigue; Recurrent major depressive disorder, in partial remission ; Chronic post-traumatic stress disorder (PTSD) ; Hyperuricemia; Side effect of medicationStart: 04-20-2025 End: 86-17-6854kvgmjvwauwNCOBYH J HEMEYERNot AvailableStart: 01-13-2025 End: 99-80-5506Oqawkf outpatient visit 25 minutesAashish Laguna MD Work Phone: [facility] CI FM 100Comment on above:Essential hypertension (Primary Dx); Hypertensive nephropathy ; Stage 3a chronic kidney disease ([facility]); Type 2 diabetes mellitus with stage 3a chronic kidney disease, without long-term current use of insulin ([facility]); Hyperlipidemia, mixed ; Microalbuminuric diabetic nephropathy ([facility])Start: 01-13-2025 End: 28-58-4875ytcqbdyxvjDURKIL J HEMEYERNot AvailableStart: 01-13-2025 End: 73-44-4946Bpuqkq Tr Laguna MD Work Phone: [facility] CI FM 100Start: 01-13-2025 End: 66-71-8233Pnqlcp Tr Laguna MD Work Phone: [facility] CI FM 100Start: 12-27-2024 End: 68-25-8489Ywdywd Tr Laguna MD Work Phone: [facility] CI FM 100Start: 12-27-2024 End: 26-10-7132Gkurpc flowsMina Laguna MD Work Phone: [facility] CI FM 100Start: 12-27-2024 End: 90-57-6490jxvbjhecgsFKLCNP J HEMEYERNot AvailableStart: 12-27-2024 End: 77-67-6584Ylsicfjleijw care manage srvc 14 day dischargeAashish Laguna MD Work Phone: [facility] CI FM 100Comment on above:Hyperuricemia (Primary Dx); Atrial fibrillation with rapid ventricular response (CMS/HCC); Interstitial pulmonary disease (CMS/HCC); Acute idiopathic gout of right ankle; Acute idiopathic gout involving toe of right foot; Chronic post-traumatic stress disorder (PTSD) (CMS/HCC); [facility] 11-28-2024 End: 06-38-6550cdphoeejwvWhsrlc J Hemeyer MD Work Phone: [facility] Work Phone: Start: 11-28-2024 End: 13-21-9094Pizfayxc ReferredAashish Laguna MD Work Phone: [facility]-LAB Path Spec Dam[facility] HospStart: 11-25-2024 End: 75-06-3311Xoaeflv encounter procedureAashish Laguna MD Work Phone: [facility] Work Phone: Start: 11-25-2024 End: 18-19-8732kefvqhslfoZbnkhv J Hemeyer MD Work Phone: [facility] Work Phone: Start: 11-09-2024 End: 41-02-9185Xvuuig Tr Laguna MD Work Phone: noms CI FM 100Start: 11-09-2024 End: 69-66-5773Gqkxcp Tr Laguna MD Work Phone: [facility] CI FM 100Start: 11-09-2024 End: 99-92-4415rsngwzfhetZSRJXV J HEMEYERNot AvailableStart: 10-26-2024 End: 43-47-9872icvlpndobnILIVVS J HEMEYERNot AvailableStart: 10-26-2024 End: 90-17-7298Slfbri flowsMina Laguna MD Work Phone: [facility] CI FM 100Start: 10-26-2024 End: 82-73-1925Spdapc flowsMina Laguna MD Work Phone: [facility] CI FM 100Start: 10-26-2024 End: 69-83-3822Jnxuad outpatient visit 25 minutesAashish Laguna MD Work Phone: [facility] CI FM 100Comment on above:Acquired hypothyroidism (CMS/HCC) (Primary Dx); Chronic fatigue; ESS (euthyroid sick syndrome); Morbid obesity (CMS/HCC); BMI 40.0-44.9, adult (CMS/HCC)Start: 08-23-2024 End: 24-26-8225Zprwyk outpatient visit 25 minutesAngel Ramsey DO Work Phone: noms SWS OBComment on above:Encounter for gynecological examination without abnormal finding (Primary Dx); Breast cancer screening by mammogram; Omphalitis; Chronic dermatitis; Chronic vulvitisStart: 08-23-2024 End: 24-95-1228Rkyfcsg encounter statusAngel Ramsey DO Work Phone: noms HealthcareStart: 08-23-2024 End: 67-47-1378lgjyjhqzigHMKNTLD D BRUNERNot AvailableStart: 07-21-2024 End: 31-61-2424Eulebo outpatient visit 25 minutesAashish Laguna MD Work Phone: [facility] CI FM 100Comment on above:Essential hypertension; Stage 3b chronic kidney disease (HCC) (CMS/HCC); Type 2 diabetes mellitus with stage 3b chronic kidney disease, without long-term current use of insulin (HCC) (CMS/HCC); Microalbuminuric diabetic nephropathy (CMS/HCC); Hyperlipidemia, mixed (CMS/HCC); Coronary artery disease involving united [place]uburn coronary artery of united auburn heart without angina pectoris (CMS/HCC); Pulmonary hypertension (CMS/HCC); Morbid obesity (CMS/HCC); BMI 40.0-44.9, adult (CMS/HCC)Start: 07-21-2024 End: 57-02-5828tynumykkmaTAJVRMPaola Go AvailableStart: 07-21-2024 End: 99-07-6665Wqgjrt Tr Laguna MD Work Phone: [facility] CI FM 100Start: 07-21-2024 End: 65-74-4399Aywmje Tr Laguna MD Work Phone: [facility] CI FM 100Start: 05-12-2024 End: 65-83-0838Phbtfb outpatient visit 25 minutesAashish Laguna MD Work Phone: [facility] CI FM 100Comment on above:Recurrent major depressive disorder, in partial remission (HCC) (CMS/HCC); Chronic post-traumatic stress disorder (PTSD) ([facility]/HCC); Mild cognitive impairment with memory loss; Morbid obesity (CMS/HCC); BMI 40.0-44.9, adult ([facility]/HCC); Hyperuricemia; Acute idiopathic gout involving toe, unspecified lateralityStart: 05-12-2024 End: 54-97-7048Ohdsui Tr Laguna MD Work Phone: [facility] CI FM 100Start: 05-12-2024 End: 39-63-7727Ngdkhs Tr Laguna MD Work Phone: [facility] CI FM 100Start: 05-04-2024 End: 71-74-8511Tyjaev outpatient visit 40 minutesAashish Laguna MD Work [...] venous insufficiency of lower extremityStart: 05-04-2024 End: 56-49-5417Udldzv flowsMina Laguna MD Work Phone: [facility] CI FM 100Start: 05-04-2024 End: 48-47-8060Rwvrxk flowsMina Laguna MD Work Phone: [facility] CI FM 100Start: 04-28-2024 End: 92-18-4901Angxmdxaw Vincenzo Laguna MD Work Phone: [facility] CI FM 100Start: 03-15-2024 End: 30-94-6848Nyehmojwv Result EncounterGeneric External Data ProviderNOMS External Department UnsolicitedStart: 03-15-2024 End: 21-35-4990Kfrzggqkr Result EncounterGeneric External Data ProviderNOMS External Department UnsolicitedStart: 56-60-3879Iblig abstractingEnahum Laguna MD Work Phone: [facility] BNS FMStart: 10-15-2023 End: 30-47-4741Bzddmr outpatient visit 25 minutesEdramu Lgauna MD Work Phone: noms BNS FMComment on above:Mild cognitive impairment with memory loss (Primary Dx); ESS (euthyroid sick syndrome); Acquired hypothyroidism (CMS/HCC); Chronic fatigue syndrome; Recurrent major depressive disorder, in partial remission (HCC) (CMS/HCC); Chronic post-traumatic stress disorder (PTSD) (CMS/HCC)Start: 10-02-2023 End: 52-06-5306qjcbmybcamAN Aashish Laguna Work Phone: [facility] Work Phone: Start: 10-02-2023 End: 24-06-0819Sqiuofz encounter procedureMD Aashish Laguna Work Phone: [facility] Work Phone: Start: 08-21-2023 End: 18-46-4917Didnlndqq Result EncounterGeneric External Data ProviderNOMS External Department UnsolicitedStart: 08-21-2023 End: 30-94-0417Mgbpainhw Result EncounterGeneric External Data ProviderNOMS External Department UnsolicitedStart: 69-04-7505iyjqqcrzzgNY EDWARD HEMEYER . Facility:C6Apkat: 11-29-2022 End: 61-21-6555uphvibyhxyQX Edward J Hemeyer Work Phone: [facility] Work Phone: Start: 11-29-2022 End: 48-78-2183Radugxv encounter procedureMD Edward Hemeyer Work Phone: [facility]Ray [facility] Work Phone: Start: 11-25-2022 End: 58-00-8505gootilhemxCL Edward J Hemeyer Work Phone: [facility] Work Phone: Start: 11-25-2022 End: 28-34-5589Nvuqdgq encounter procedureMD Edward Hemeyer Work Phone: [facility]Ray [facility] Work Phone: Start: 11-04-2022 End: 47-81-1374vyxyxdmpzbDR EDWARD HEMEYER .Facility:A5Rxqzb: 10-22-2022 ambulatoryDR EDWARD HEMEYER .Facility:J1Wpnyr: 10-18-2022 End: 45-45-0058ifffzzfbsiBM EDWARD HEMEYER .Facility:G1Kiojx: 10-15-2022 End: 71-79-9481mydpqnydsyPZ EDWARD HEMEYER .Facility:Y1Poqsv: 10-14-2022 End: 12-96-6763otswdegixgZD Edward J Hemeyer Work Phone: [facility] Work Phone: Start: 10-14-2022 End: 02-28-1168Lscnwls encounter procedureMD Edward Hemeyer Work Phone: [facility] Work Phone: Start: 09-17-2022 End: 07-02-4183mlnrauskimNODN S [facility] HospitalStart: 09-17-2022 End: 85-20-9950Xkmgturdjw [facility] Stress RmWHZ Stress LabComment on above:ArrivedAbnormal EKG; Chest pain, unspecified typeStart: 09-05-2022 End: 68-07-5037incwztpbzeFT NORA PARENTEFacility:W8Mjvks: 08-29-2022 End: 07-25-5599booqpjwwdnCZRI VIGESAAFacility:W5Lxywa: 11-19-6038wskjksknavTI AASHISH LAGUNA .Facility:W9Zmtqg: 06-17-2022 End: 35-80-1451wfebecfsbeJU EDWARD HEMEYER .Facility:W8Anseu: 05-16-2022 End: 96-02-3557fluyaqwadtLL EDWARD HEMEYER .Facility:I1Jbpjw: 03-18-2022 End: 53-52-1265hvqhlpcbimDBFA S [facility] HospitalStart: 03-18-2022 End: 73-98-7904Kwzksuwxod hospital visit by Sharmila Laguna MD Work Phone: mWHZ RESPIRATORY THERAPYComment on above:Atrial fibrillation, new onset (HCC)Start: 02-27-2022 End: 61-22-2658Zsatgal encounter procedureJEPATRICK LEW [facility] start: 02-12-2022 End: 69-11-7821fstawkmapqFIJB S [facility] HospitalStart: 02-12-2022 End: 29-07-2049Eavzwyosza hospital visit by physicianShruti Stress RmMWHZ Stress LabComment on above:Atrial fibrillation, new onset (HCC)Start: 12-31-2021 End: 28-37-3604fxrmhodcxxVQ EDWARD HEMEYER .Facility:X7Lqpkb: 07-12-2021 End: 34-13-4431Tcnotcffex hospital visit by Sharmila Laguna MD Work Phone: MWHZ RESPIRATORY THERAPYComment on above:Atrial fibrillation, new onset (HCC)Atrial fibrillation, new onset (HCC); Essential hypertension; Anemia, unspecified typeStart: 06-11-2021 End: 01-89-6322Erfgshudel hospital visit by physicianShruti Stress RmMYumiko Stress LabComment on above:ArrivedStart: 10-14-2020 End: 56-67-1039Dttrll Oksana Hernandez Work Phone: [facility] Start: 05-19-2019 End: 95-35-0828Fggqqwn encounter procedureUC Medical Centertart: 05-19-2019 End: 19-35-9739Hlfleucfvd [facility] Work Phone: [facility] Procedural Care UnitStart: 05-17-2019 End: 80-62-1560Jotoawnlxf hospital visit by Sharmila Hill RESPIRATORY THERAPYComment on above:SOB (shortness of breath); Hypertension, unspecified type; Diabetes mellitus without complication (HCC)SOB (shortness of breath); Hypertension, unspecified type; Diabetes mellitus without complication (HCC); Renal insufficiency Procedures DateProcedureProcedure DetailPerforming ClinicianStart: 65-38-8956Tmrckhfou mammography of bilateral breastsEdramu Laguna MD Work Phone: Start: 59-61-3386AS CHEST 2VGeneric External Data ProviderStart: 10-02-2023 End: 62-01-5801Xqoywctjh mammography of bilateral breastsMD Aashish Laguna Work Phone: Start: 56-95-2943WOT 12-LEADGeneric External Data ProviderStart: 30-56-6275Cgfai X-ray abdomenMD Aashish Laguna Work Phone: Start: 38-20-8758Pdvk energy X-ray absorptiometryMD Aashish Laguna Work Phone: Start: 67-39-1384Krcgtposh mammography of bilateral breastsMD Aashish Laguna Work Phone: Start: 90-09-2439ASWXDN TEST, LEXISCANGreg Tung Galindo MD Work Phone: Start: 57-69-7652Aoncifptbe spect multiple studiesGreg Tung Galindo MD Work Phone: Start: 53-92-8508Svv routine ecg w/least 12 lds w/i&r Pacheco Tung Galindo MD Work Phone: Start: 02-12-2022 End: 02-00-0781Ppm routine ecg w/least 12 lds w/i&rGreg Tung Galindo MD Work Phone: Start: 18-15-6646Oqsgftenyaswh metabolic panelGreg Tung Galindo MD Work Phone: Start: 44-09-9723Hxz routine ecg w/least 12 lds w/i&r Pacheco Tung Galindo MD Work Phone: Start: 06-11-2021 End: 10-88-8733Lys routine ecg w/least 12 lds w/i&rGreg Tung Galindo MD Work Phone: Start: 27-48-7726ZtidmsttjbCKWPPGNA LOUANN Start: 43-36-9162Mmunagl catheterizationGregory Victor M Galindo Work Phone: Start: 44-05-8530Sckjlma [Mass/volume] in BloodGregory Victor M Galindo Work Phone: Start: 42-37-0786Dagoz count complete auto&auto difrntl wbcGreg Tung Valon Lasersnicanor Work Phone: Start: 23-75-7442Fpaaoyxgfuzmy metabolic panelGreg S Tizra Work Phone: Start: 02-84-9625Jlehv panelGreg Tizra Work Phone: Start: 01-07-5333TTNQVPY FASTING?Pacheco Galindo Work Phone: Start: 68-69-1872VrsfeqyfhrgLfxaoy Hemeyer MD Work Phone: Start: 33-41-3860GwzfvndmlsCTYAZPXN PERRY Bilateral cataracts (disorder)Radha Harley CholecystectomyFRED LOUANN Foot structure (body structure)FRED LEW Placement of stent in cardiac conduitFRED LEW Comment on above:11/2016Reduction mammoplastyFRED LEW Plan of Treatment DateCare ActivityDetailAuthorStart: 03-08-4225Gvitigdj screeningDiabetes: Retinopathy ScreeningNOWA HealthcareStart: 44-39-7537Okcienwpt vaccination Influenza Vaccine (#1)[facility] HealthcareComment on above:Postponed from 05/09/2025 (Patient Refused)Start: 51-66-0247Jigcf screening for proteinDiabetes: Urine Protein ScreeningNOWA HealthcareStart: 12-22-2025 End: 36-28-4826Fkrtivm encounter ckjbhyqpg33/16/2026 2:00 PM EDT Office Visit [facility] [address] [place] [address] Aashish Laguna MD [address] [facility] [address] [place] [address] (Fax)[facility] MedicineStart: 58-83-4318Itqlpjmdzo A1c measurementDiabetes: Hemoglobin A7QHPXL Healthcare Start: 10-20-2025 End: 08-57-8013Depqfqp encounter jqikdmlny62/12/2026 2:00 PM EST Office Visit [facility] [place] [address] 100 [place] [address] Aashish Laguna MD [address] [place] [address] [facility] MedicineStart: 98-05-3033Tyiymtsfr for malignant neoplasm of colonNOWA HealthcareStart: 08-24-2025 End: 02-84-8209Ioypatz encounter procedureNOMS SWS OBStart: 05-89-6812Ffyoiznmnc A1c measurementDiabetes: Hemoglobin K9BMQIF HealthcareStart: 07-14-2025 End: 73-82-2044Jvvkbxb encounter procedureNOMS CI FM 100Start: 06-30-2025 End: 47-05-5577Truxhoz encounter procedureNOMS CI FM 100Comment on above: Essential hypertension; Stage 3a chronic kidney disease ([facility]); Hyperlipidemia, mixed; Type 2 diabetes mellitus with stage 3a chronic kidney disease, without long-term current use of insulin (HCC); Microalbuminuric diabetic nephropathy (HCC); Morbid obesity ([facility])Start: 69-48-8690Qnalxggv screeningDiabetes: Retinopathy ScreeningNOWA HealthcareStart: 97-76-4826RBUUC-19 Vaccine ( season) COVID-19 Vaccine ( season)[facility] HealthcareStart: 84-28-5701Kmpzmrxdr vaccinationInfluenza Vaccine (#1)[facility] HealthcareStart: 05-04-2025 End: 69-66-4410Sbjbnnlvdes [Units/volume] in Serum or PlasmaTSH Lab Routine Acquired hypothyroidism Expected: 05/04/2025, Expires: 04/20/2026[facility] Work Phone: Comment on above:Expected: 05/04/2025, Expires: 04/20/2026Start: 05-04-2025 End: 09-72-2152Ripbedfcn (T4) free [Mass/volume] in Serum or PlasmaT4, free Lab Routine Acquired hypothyroidism Expected: 05/04/2025, Expires: 04/20/2026[facility] HealthcareComment on above:Expected: 05/04/2025, Expires: 04/20/2026Start: 05-04-2025 End: 70-28-4550Oplbvqehvqpoesez (T3) Free [Mass/volume] in Serum or PlasmaT3, free Lab Routine ESS (euthyroid sick syndrome) Acquired hypothyroidism Expected: 05/04/2025, Expires: 04/20/2026[facility] HealthcareComment on above:Expected: 05/04/2025, Expires: 04/20/2026Start: 04-20-2025 End: 90-92-7216Rjammyo encounter procedureNODEACONESS INC[facility] FMComment on above:ESS (euthyroid sick syndrome); Acquired hypothyroidism ; Chronic fatigue; Recurrent major depressive disorder, in partial remission ; Chronic post-traumatic stress disorder (PTSD)Start: 03-25-2025 End: 30-02-7245G2, reverseT3, reverse Lab Routine Chronic fatigue ESS (euthyroid sick syndrome) Expected: 03/25/2025, Expires: 10/26/2025[facility] HealthcareComment on above:Expected: 03/25/2025, Expires: 10/26/2025Start: 03-25-2025 End: 34-25-9860Qejbcdrdjsb [Units/volume] in Serum or PlasmaTSH Lab Routine Acquired hypothyroidism (CMS/HCC) Chronic fatigue Expected: 03/25/2025, Expires: 10/26/2025[facility] HealthcareComment on above:Expected: 03/25/2025, Expires: 10/26/2025Start: 03-25-2025 End: 87-22-8487Fvrlyvgin (T4) free [Mass/volume] in Serum or PlasmaT4, free Lab Routine Acquired hypothyroidism (CMS/HCC) Chronic fatigue Expected: 03/25/2025, Expires: 10/26/2025[facility] HealthcareComment on above:Expected: 03/25/2025, Expires: 10/26/2025Start: 03-25-2025 End: 36-47-7459Augfmvptfpubeufa (T3) [Mass/volume] in Serum or PlasmaT3 Lab Routine Chronic fatigue ESS (euthyroid sick syndrome) Expected: 03/25/2025, Expires: 10/26/2025[facility] Healthcare Work Phone: Comment on above:Expected: 03/25/2025, Expires: 10/26/2025Start: 03-25-2025 End: 44-24-4468Cuserqbmodatsmmm (T3) Free [Mass/volume] in Serum or PlasmaT3, free Lab Routine Chronic fatigue ESS (euthyroid sick syndrome) Expected: 03/25/2025, Expires: 10/26/2025NOWA HealthcareComment on above:Expected: 03/25/2025, Expires: 10/26/2025Start: 13-37-7951Wsryd screening for protein Diabetes: Urine Protein ScreeningNOWA HealthcareStart: 01-13-2025 End: 26-05-4234Nehkaxe encounter procedureNOMS CI FM 100Comment on above: Essential hypertension; Hyperlipidemia, mixed ([facility])Start: 25-15-3614Xlmingdthuup Vaccine: 65+ Years (2 of 2 - PCV)Pneumococcal Vaccine: 65+ Years (2 of 2 - PCV)[facility] Comment on above:Postponed from 04/01/2019 (Patient Refused)Start: 11-28-2024 Bacteria identified in Urine by CultureUrine [facility] Systemtart: 08-71-1580Zahrm [facility] Westtart: 11-09-2024 End: 30-44-5126Pdbahnb encounter procedureNOMS CI FM 100Comment on above: Encounter for Medicare annual wellness exam; Advance directive in chart; Encounter for screening for other disorder; Screening for alcohol problem; Morbid obesity ([facility]); BMI 40.0-44.9, adult ([facility]); Type 2 diabetes mellitus with stage 3a chronic kidney disease, without long-term current use of insulin (HCC) ([facility]); Stage 3b chronic kidney disease (HCC) ([facility]); Essential hypertension; Microalbuminuric diabetic nephropathy ([facility]); Hyperlipidemia, mixed ([facility]/HCC)Start: 11-04-2024 End: 56-02-2676L0, reverseT3, reverse Lab Routine Chronic fatigue Expected: 11/04/2024 (Approximate), Expires: 05/04/2025NOWA HealthcareComment on above: Expected: 11/04/2024 (Approximate), Expires: 05/04/2025Start: 11-04-2024 End: 61-25-9370Wejgjhwbetj [Units/volume] in Serum or PlasmaTSH Lab Routine Chronic fatigue Expected: 11/04/2024 (Approximate), Expires: 05/04/2025NOWA HealthcareComment on above:Expected: 11/04/2024 (Approximate), Expires: 05/04/2025Start: 11-04-2024 End: 98-27-8781Zrwsgtihp (T4) free [Mass/volume] in Serum or PlasmaT4, free Lab Routine Chronic fatigue Expected: 11/04/2024 (Approximate), Expires: 05/04/2025 [facility] HealthcareComment on above:Expected: 11/04/2024 (Approximate), Expires: 05/04/2025Start: 11-04-2024 End: 71-39-8566Gwxvzusfluhbfoem (T3) [Mass/volume] in Serum or PlasmaT3 Lab Routine Chronic fatigue Expected: 11/04/2024 (Approximate), Expires: 05/04/2025 [facility] Healthcare Work Phone: Comment on above:Expected: 11/04/2024 (Approximate), Expires: 05/04/2025Start: 11-04-2024 End: 59-04-0445Bxkgbolaujzegwjl (T3) Free [Mass/volume] in Serum or PlasmaT3, free Lab Routine Chronic fatigue Expected: 11/04/2024 (Approximate), Expires: 05/04/2025NOWA HealthcareComment on above:Expected: 11/04/2024 (Approximate), Expires: 05/04/2025Start: 10-26-2024 End: 14-09-9652Bhclsah encounter procedureNOMS CI FM 100Start: 10-03-2024 End: 43-82-0117CSH Breast - bilateral screeningBilateral screening mammogram with tomosynthesis Imaging Routine Breast cancer screening by mammogram Expected: 10/03/2024, Expires: 10/24/2025[facility] Healthcare Work Phone: comment on above:Expected: 10/03/2024, Expires: 10/24/2025Start: 12-38-4128Eqfskagqc for malignant neoplasm of breastMammogram [facility] HealthcareStart: 08-23-2024 End: 62-36-1152Yuyvnzt encounter dunekrflw57/16/2024 1:45 PM EST Office Visit [facility] OB [address] [place] [address] Angel Ramsey, DO [address] [place] [address] [facility] SWS OBStart: 43-57-0172Wsrbhttlxx A1c measurement Diabetes: Hemoglobin H8BJERT HealthcareStart: 07-21-2024 End: 00-95-3672Qtpmtrs encounter adrzrzbsx90/13/2024 2:30 PM EST Office Visit [facility] CI FM [address] [facility] 100 [place] [address] Aashish Laguna MD [address] [place] [address] (Fax)[facility] CI FM 100Start: 05-13-2024 End: 70-96-7875Vdszgez encounter rhwybkawt50/05/2024 2:30 PM EDT Office Visit [facility] CI FM 100 [address] [facility] 100 [place] [address] Aashish Laguna MD [address] [place] [address] (Fax)[facility] CI FM 100Start: 05-12-2024 End: 84-73-6954Dplvgsc encounter procedureNOMS CI FM 100Comment on above: Recurrent major depressive disorder, in partial remission (HCC) ([facility]); Chronic post-traumatic stress disorder (PTSD) ([facility]); Mild cognitive impairment with memory loss; Morbid obesity ([facility]); BMI 40.0-44.9, adult ([facility])Start: 57-06-8617Zcsysfahm vaccinationInfluenza Vaccine (#1)[facility] HealthcareStart: 10-57-7311Xzsyswwlum A1c measurementDiabetes: Hemoglobin W9FKUDJ HealthcareStart: 05-04-2024 End: 47-87-9692Kfdfwhm encounter procedureNOMS CI FM 100Comment on above:ESS (euthyroid sick syndrome); Chronic fatigue syndrome; Morbid obesity (CMS/HCC); BMI 40.0-44.9, adult (CMS/HCC)Start: 02-05-2024 End: 56-74-4988Onnkjuj encounter /30/2024 2:00 PM EDT Office Visit [facility] [address] [facility] [address] Aashish Laguna MD [address] [facility] [place] [address] (Fax)[facility] FMStart: 11-11-2023 End: 76-74-8571Iknumnh encounter /05/2024 2:30 PM EST Office Visit [facility] [address] [facility] [place] [address] Aashish Laguna MD [address] [facility] [place] [address] (Fax)[facility] FMStart: 10-15-2023 End: 42-62-2340Mqozcai encounter wooqsiwtb79/07/2024 2:00 PM EST Office Visit [facility] [address] [facility] [address] Aashish Laguna MD [address] [facility] [place] [address] (Fax)[facility] FMStart: 42-92-1666Luelnucmvc A1c measurement Diabetes: Hemoglobin G0HXLSN HealthcareStart: 76-95-9392Wwbvz panelLipidsINOVA CHILDREN'S HOSPITALStart: 06-37-3930Mmnhl screening for proteinDiabetes: Urine Protein ScreeningNOWA HealthcareStart: 11-09-2023Medicare Annual Wellness (AWV) Medicare Annual Wellness (AWV)NOM HealthcareStart: 03-17-2023 End: 96-15-9975Plxwsva encounter rfdbrmqoa80/10/2023 Office Visit Cardiology Pacheco Galindo MD [address] [place] [address] [facility] Cardiology SpecialistStart: 93-55-5644Dczxj screening for proteinDiabetic microalbuminuria testBON [facility]ITALStart: 09-17-2022 End: 99-41-1933Bztmzke encounter pslkoaefc66/10/2023 Office Visit Cardiology Pacheco Galindo MD [address] [place] [address] [facility] Cardiology SpecialistStart: 37-10-5485GQW test (Diabetes, CKD 3-4, OR last GFR 15-59)GFR test (Diabetes, CKD 3-4, OR last GFR 15-59)[facility]S HOSPITALStelizabeth: 05-04-4431Yvhmaayrs vaccinationFlu vaccine (#1)[facility] HOSPITALStelizabeth: 63-94-8218Tydgqwlvd vaccinationFlu vaccine (#1)[facility]ITALStart: 03-18-2022 End: 91-88-0046Catsyjy encounter sqyshuzdk48/11/2022 Office Visit Cardiology Pacheco Galindo MD [address] [place] [address] [facility] Cardiology SpecialistStart: 01-08-2022 End: 63-26-0259Tcuntns encounter xhrzubiai52/03/2022 Office Visit Cardiology Pacheco Galindo MD [address] [place] [address] [phone] [facility] Cardiology SpecialistStart: 93-84-2517Zztoj screening for proteinBON [facility]FIELD HOSPITALStelizabeth: 59-77-3756Nbiidegxb for malignant neoplasm of colonColonoscopyNOMS HealthcareStart: 07-12-2021 End: 62-85-5354Pxqyhju encounter uumcltcqe63/04/2021 Office Visit Cardiology Pacheco Galindo MD [address] [place] [address] [facility] Cardiology SpecialistStart: 64-13-1439Ywgiehgqf vaccinationFlu vaccine (#1)[facility] [employer] Work Phone: start: 73-63-1329Ramjp panelBON [facility] Start: 04-11-2020 End: 48-26-5173Sddxca Visit04/11/2020 Office Visit Cardiology Pacheco Galindo MD [address] [place], [place] [address] [facility] Cardiology SpecialistStart: 18-26-2310Hklwvqcgr for malignant neoplasm of colon [facility]ITALStart: 05-19-2019 End: 81-47-4336Hrquz Only05/19/2019 Nurse Only [facility]iologyC[facility] Cardiology SpecialistStart: 71-71-9023Rfqdjirhh vaccinationFlu vaccine (#1)[facility]: 01-95-6096Xorkffcumgkb 65+ years Vaccine (2 - PCV)Pneumococcal 65+ years Vaccine (2 - PCV)[facility]ITALStart: 94-47-6727Amyiroosrvif 65+ years Vaccine (2 of 2 - PCV13)Pneumococcal 65+ years Vaccine (2 of 2 - PCV13) [facility]: 70-77-4685Jkulomkkjcvi Vaccine: 65+ Years (2 - PCV) Pneumococcal Vaccine: 65+ Years (2 - PCV)[facility] CenterStart: 60-95-1971Nzgcvb Wellness Visit (AWV)Annual Wellness Visit (AWV)[facility]: 67-08-9467Hqxlivonc for malignant neoplasm of colonINOVA CHILDREN'S [facility] Start: 01-62-4673Xvlii screenLipid screenAC[facility]: 2014 DEXA (modify frequency per FRAX score)DEXA (modify frequency per FRAX score) [facility]: 48-33-3458Ouavenav Vaccine (2 of 3)Shingles Vaccine (2 of 3)[facility]: 09-05-2207Yyuvvf Wellness Visit (AWV)Annual Wellness Visit (AWV)[facility]: 81-93-8440Sfrurndez B Vaccines (1 of 3 - Risk 3-dose series)Hepatitis B Vaccines (1 of 3 - Risk 3-dose series) [facility] CenterStart: 33-46-6937NNyZ/Tdap/Td Vaccines (2 - Tdap)DTaP/Tdap/Td Vaccines (2 - Tdap)[facility] CenterStart: 27-21-4345JAyM/Tdap/Td vaccine (1 - Tdap)DTaP/Tdap/Td vaccine (1 - Tdap)[facility]: 2004 Screening for osteoporosisDEXA (modify frequency per FRAX score)[facility]: 31-14-1546Tlvxe cancer screen colonoscopyColon cancer screen colonoscopyAC[facility]: 81-14-2306Ywvprsxee for malignant neoplasm of colonCar[facility]: 37-18-2067Mdbikm cancer screenBreast cancer screenACMC [facility]: 49-32-9998Uxpgbrdxw for malignant neoplasm of breastBreast cancer screenCarilion [facility]: 1968 Hepatitis A Vaccines (1 of 2 - Risk 2-dose series)Hepatitis A Vaccines (1 of 2 - Risk 2-dose series)[facility] CenterStart: 57-99-8506Fguxalsl microalbuminuria testDiabetic microalbuminuria testACMC [facility]: 96-77-3694Dfcjygch retinal examDiabetic retinal examBON [facility]: 1967 Glaucoma screeningDiabetic retinal examBON [facility]: 1967 Hepatitis C screeningHepatitis C screenBON [facility]: 1961 Depression ScreenDepression ScreenCarilion [facility]: 1959 [object Object]Diabetic foot examSt. Mary's Medical Center, Ironton Campusart: 45-15-4863U4R test (Diabetic or Prediabetic)A1C test (Diabetic or Prediabetic)[place], [place] Start: 74-69-0952Jqjatyhc foot examinationDiabetic foot examBON [facility]: 42-25-9095Tutijbpz retinal examDiabetic retinal examChurch [place], [place]Start: 42-75-5078Sauyolmqup A1c otrxassbgynM3E test (Diabetic or Prediabetic)[facility] [employer]([facility])[place]: 72-97-4755Fptbmk Wellness Visit (AWV) Annual Wellness Visit (AWV)[facility]ITALRoom 21 MediaGreenville: 66-26-7964Glzhasuqm C screenHepatitis C [employer] [place], [place]Start: 84-03-0041Jwqgxmkxf C screeningHepatitis C [employer] Work Phone: start: 51-13-7950Hziewlibl for malignant neoplasm of colon[facility] HealthcareCardiac catheterizationCardiac Catheterization Cardiac Cath Routine 05/19/2019 8:40 AM EDTOhioHealth End: 06-94-4842Ttovojypmjskt DefibrillationCardioversion Defibrillation Cardiac Cath Routine Atrial fibrillation, new onset (HCC) 1 Occurrences starting 02/12/2022 until 02/12/2022ON [employer]([facility]) Work Phone: comment on above:1 Occurrences starting 02/12/2022 until 02/12/2022EKG 12 [facility]CH[facility], KYEKG 12 LeadBON [employer]([facility]) Work Phone: eKG 12 LeadEKG 12 Lead ECG Routine Atrial fibrillation, new onset (HCC) 03/18/2022 9:40 AM EDTBON [employer]([facility]) Work Phone: Immunizations Immunization DateImmunizationNotesCare RvuiopmrWzwahmpe86-36-4954EZFHKXM - Respiratory syncytial virus (RSV), vaccine, bivalent, protein subunit RSV prefusion F, diluent reconstituted, 0.5 mL, PFAashish Laguna MD Work Phone: [facility] CenterCkrojwmpif37-74-4145Tslzjjjgfhyf Conjugate PCV 20 Aashish Laguna MD Work Phone: [facility] CenterFzautigrme21-50-1094JZPL-NFL-7 (COVID-19) vaccine, mRNA, spike protein, LNP, PF, 50 mcg/0.5 mLAashish Laguna MD Work Phone: [facility] CenterMxtfqpkytn94-10-8947Brnrcxby trivalent influenza vaccine, adjuvanted, preservative freeAashish Laguna MD Work Phone: [phone] [place], [place] [address]Qvobbrbsdr71-34-6311vdhrrxduq virus vaccine, unspecified formulationAashish Laguna MD Work Phone: [phone] [place], [place] [address]Xndibteaxn86-90-1812QKQB-PTO-6 (COVID-19) vaccine, mRNA, spike protein, LNP, PF, 50 mcg/0.5 mLAashish Laguna MD Work Phone: [phone] [place], [place] [address]Mqrygywpww73-64-5250Weptigwsr, Seasonal, Quadrivalent, AdjuvantedEdramu Laguna MD Work Phone: [phone] [place], [place] [address]Rkzqwvuunf10-23-4352ktvdnnwno virus vaccine, unspecified formulationAashish Laguna MD Work Phone: [phone] [place], [place] [address]Gzmzdrbyth78-50-6829lujxyaasa, injectable, quadrivalent, preservative freeAashish Laguna MD Work Phone: [phone] [place], [place] [address]Sfujnxxgqu87-67-2349dgnxxxhfx, high dose seasonal, preservative-freeAashish Laguna MD Work Phone: [phone] [place], [place] [address]Whrwhsmzyq31-37-9700Wnrblzro, trivalent, recombinant, injectable influenza vaccine, preservative freeAashish Laguna MD Work Phone: [phone] [place], [place] [address]Asjmywefvl18-49-2803CNOB-GhL-0 (COVID-19) mRNA- 1273 vaccineJEKANUCHILDREN'S HOSPITAL [facility] comment on above:Result Comment: 2 dvox20-99-2042 SARS-CoV-2 (COVID-19) mRNA-1273 vaccineJENNIFER LOUANN [facility] comment on above:Result Comment: 1st jwku22-29-3996 Seasonal trivalent influenza vaccine, adjuvanted, preservative freeAashish Laguna MD Work Phone: [phone] [place], [place] [address]Rkqlfhostf50-78-4506evgdmj vaccine recombinant Aashish Laguna MD Work Phone: [phone] [place], [place] [address]Ctrgzwwuom67-47-7564xautcl vaccine recombinant Aashish Laguna MD Work Phone: [phone] [place], [place] [address]Pmkhgicird60-98-2463xmmsuyarv, high dose seasonal, preservative-freeAashish Laguna MD Work Phone: [phone] [place], [place] [address]Ovovzaeddm97-13-6762kzoyzucjg, high dose seasonal, preservative-freeEdramu Laguna MD Work Phone: [phone] [place], [place] [address]Pcvosruclp74-47-1820nizogwltw, injectable, quadrivalent, preservative freeAashish Laguna MD Work Phone: [phone] [place], [place] [address]Jebxjqykzh48-08-7643xgxmtsswolcp polysaccharide vaccine, 23 valKasandra Laguna MD Work Phone: [phone] [place], [place] [address]Fjkxjdjpcm96-98-8141zgnunmpwr, injectable, quadrivalent, preservative freeAashish Laguna MD Work Phone: [phone] [place], [place] [address]Fndklyabro50-35-4928ayjuejwpr, injectable, quadrivalent, preservative freeAashish Laguna MD Work Phone: [phone] [place], [place] [address]Wmfwyolsrs16-65-9689Neqkcyjw trivalent influenza vaccine, adjuvanted, preservative freeAashish Laguna MD Work Phone: [phone] [place], [place] [address]Yxcgwbnuda14-13-6699ezsudkykl, seasonal, injectable, preservative freeAashish Laguna MD Work Phone: [phone] [place], [place] [address]Dszxvndxfk06-86-6657hbvxbkmgg, injectable, quadrivalent, preservative freeAashish Laguna MD Work Phone: [phone] [place], [place] [address]Wgwbudhthm85-17-0204iwmmud vaccine, liveEdramu Laguna MD Work Phone: [phone] [place], [place] [address]Uxsrlqalqq21-71-0101tqkarsmwsjab polysaccharide vaccine, 23 valKasandra Laguna MD Work Phone: [phone] [place], [place] [address]Afseuheiwd82-43-3668shocxeh and diphtheria toxoids, adsorbed, preservative free, for adult use (5 Lf of tetanus toxoid and 2 Lf of diphtheria toxoid)Aashish Laguna MD Work Phone: [facility] Payers DatePayer CategoryPayerPolicy [id number] AAR [id number] 2022- Present [address] [place] [address] [id number] Health Insurance [id number]patedkZGOG [facility] [id number] 2016-[id number] 1.2.840.691360.1.13.385.2.7.3.200178.32202-60-5157Vwgtompvbgnaywqais 1.2.840.068736.1.13.385.2.7.3.241926.315 2014MedicareMEDICARE MEDICARE PART A & B [id number] 2014-Present [id number] [id number] 2014MedicareMEDICARE MEDICARE PART A & B xxxxxxxxxx 2014-Present [place] [id number] 2014Medicare 1.2.840.292865.1.13.693.2.7.3.488590.315 [id number] 1960 Oehm-[id number] [id number] 2.16.840.1.572839.3.57[id number] 2.16.840.1.252711.3.57[id number] 2.16.840.1.824403.3.57[id number] 2.16.840.1.926583.3.579.[id number] 2.16.840.1.185396.3.57[id number] 2.16.840.1.990477.3.57[id number] 2.16840.1.143990.3.57[id number] 2.16840.1.082394.3.57[id number] 2.16840.1.990777.3.57[id number] 2.16.840.1.348230.3.57[id number] 2.16840.1.659404.3.57[id number] 2.16.840.1.657328.3.57[id number] 2.16.840.1.827116.3.57[id number] 2.16.840.1.864745.3.579.[id number] 2.16.840.1.336412.3.57[id number] 2.16.840.1.507410.3.57[id number] 2.16.840.1.738570.3.579.2.[id number] 2.16.840.1.345610.3.57[id number] 2.16840.1.329057.3.57[id number] 2.16840.1.001179.3.57[id number] 2.16840.1.315328.3.57[id number] 2.16840.1.384113.3.57[id number] 2.16840.1.186307.3.57[id number] 2.16840.1.330946.3.579.2.[id number] 2.16840.1.367527.3.579.2.230488-93-4266Gznepij1964051 2.840.1.859418.3.579.2.181819-35-6400Ezevngt2906297 2.16840.1.546077.3.579.[id number] 2.16840.1.296386.3.579.[id number] 2.16840.1.180179.3.579.2.175744-66-0530Lobiywa2080020 2.16840.1.945915.3.579.2.[id number] 2.16.840.1.648083.3.579.2.727MedicareVytalize Xzlfdn3U82CN6XB99 62v7lz24-7526-3z52-q7xx-[id number] 2.16.840.1.9076[id number] 2.16.840.1.838272.3.579.2.531 Social History DateTypeDetailFacilityStart: 05-21-2019 End: 35-67-3097Yelbpaq smoking status NHISNever smokerSt. [facility] Campusart: [facility]2019 End: 43-10-5290Wfwnjfe use and exposureNever usedOhioHealthStart: 05-21-2019 End: 72-00-5309Sgijozs intakeEx-drinker (finding)[facility]HealthStart: 75-09-8483Ntn Assigned At BirthNot on [facility]: [facility]2019 End: 39-85-8825Nmkdhkb intakeSt. [facility] [place] [facility]: 05-01-2021 End: 57-77-0442Dcwbgqf intakeCurrent non-drinker of alcohol (finding)[facility] [place] Work Phone: start: 92-55-2004Nyqgbcc smoking statusNeverExecutive [facility] start: 30-03-9183Ica Assigned At BirthWilson Memorial Hospitaltart: 08-20-2023 End: 50-99-1560Qftpnyw of Social functionNOMS HealthcareHow often to you have a drink containing alcohol?NeverNOMS HealthcareStart: 66-29-1861Cwiwutbih94MRRX HealthcareStart: 80-68-3006Ushdvqt CommentCaffeine intake: 1 cup day of soda, occasional diet cokeNOMS HealthcareTobacco smoking status NHISUnknown if ever smokedKettering Health Main Campus Work Phone: Start: 12-20-2009 End: 00-13-4532LqqVdcjmx (finding)[facility] Centerexual OrientationExecutive [facility] [place] [facility] Equipment Procedure CodeEquipment CodeEquipment Original TextEquipment IdentifierDates Closure Starclose Se - [id number], [id number] FDAStart: 05-19-2019 Functional Status ArznVvnxmgqrkjWsqtxxIlxsqnlu38-14-8716Cinmsbe Health Questionnaire 2 item (PHQ- 2) [Reported][facility] CenterIhnssijvuh79-97-9455Lbqejqe Health Questionnaire 2 item (PHQ- 2) [Reported][facility] CenterNhpquegpme94-31-5299Hbqoktq Health Questionnaire 2 item (PHQ- 2) [Reported][facility] CenterTksfqzewhr19-67-6602Iodziab Health Questionnaire 2 item (PHQ- 2) [Reported][facility] CenterQprteqlgfm09-98-9352Oxlac score [AUDIT-C]0 08/23/2024 1:42 PM EST Leroy, Renate, GET Okruudzuqo58-17-1866Hiomrsi Health Questionnaire 2 item (PHQ-2) [Reported][facility] CenterChcyxkjasn05-36-6375Lnyhqbz Health Questionnaire 2 item (PHQ-2) [Reported][facility] CenterKjiukdfuut35-94-1176Czoihffeqv StatusN/AExecutive [facility] Clinical Notes 02-27-2022 to 07-07-2025 Note Date & VuekHqswXvvanayq33-50-0567 NoteProgress Note-Physician Patient: PATRICIA BLAKE Age: 75 [...] # 2 tab(s), Refills(s) 0, Pharmacy: [facility] 1155, 149, cm, 06/21/25 13:36:00 EDT,Height/Length [...] list: All Problems Diabetes / SNOMED CT 075977604 / Confirmed Hypertension / SNOMED CT 1689107903 / Confirmed Nephrolithiasis / SNOMED CT 535902344 / Confirmed Frequent urination / SNOMED CT 311507222 / Confirmed Urinary urgency / SNOMED CT 317572617 / Confirmed Nocturia / SNOMED CT 648257768 / Confirmed Urge incontinence / SNOMED CT 984672992 / Confirmed Stress incontinence / SNOMED CT 636852345 / Confirmed Overactive bladder / SNOMED CT 8957437751 / Confirmed Anticoagulated / SNOMED CT 999165932 / Confirmed Mixed incontinence / SNOMED CT 92638116 / Confirmed OAB (overactive bladder) / SNOMED CT 4941261783 / Confirmed Incomplete bladder emptying / SNOMED CT 712861823 / Confirmed Morbid obesity with BMI of 40.0-44.9, adult / IMO 54555418 / Possible Problem added automatically by Discern [...] Plan: Diagnosis: Mixed stress and urge incontinence (XSM34-BK N39.46, Working, Medical), OAB (overactive bladder) (JYK09-KF N32.81, Working, (more content not included)...[facility] HealthComment on above:Result Comment: Electronically Signed By: TIN GASCA, Niru Sanchez\.br\Date and Time Signed: 07/07/25 09:42 [id number] NotePatient Education Cystoscopy ??? Voiding after the [...] if you have a fever over 100 degrees.[facility] 07-04-2025 Evaluation note* Diagnosis Essential hypertension- Primary [...] in partial remission Coronary artery disease involving united auburn coronary artery of united auburn heart without angina pectoris Morbid obesity ([facility]) Morbid obesity documented in this encounter [facility] CenterJxwhlysjeq79-93-3544 History of Present illness Narrative* Aashish Laguna [...] Refill: 0 10. Coronary artery disease involving united auburn coronary artery of united auburn heart without angina pectoris Chronic problem, stable, [...] in PM on an empty stomach. DUARTE; Frontify or [employer] brands only 60 tablet 0 metFORMIN (Glucophage) [...] file prior to visit. documented in this encounterLafayette Regional Health CenterVjhwbpcsad39-27-5598 Hospital Discharge instructions Patient Education 06/21/2025 14:17:36 [...] (electrical nerve stimulation). ?For women, using a director of medical services to prevent urine leaks. This is a [...] right after experiencing incontinence. General instructions Take vwal-hbo-pjbiczx and prescription medicines only as told by [...] important. Where to find more information [employer] [facility] [employer] Diabetes and Digestive and Kidney Diseases: www.niddk.nih.gov [employer]: www.urologyhealth.org Contact a health care [...] provider. Document Revised: 03/30/2021 Document Reviewed: 03/30/2021 [employer] Patient Education 2023 Thubrikar Aortic Valve. 06/21/2025 14:17:35 Overactive Bladder, Adult Overactive Bladder, [...] your health care provider. General instructions Take zmnz-vva-grgdidh and prescription medicines only as told by [...] provider. Document Revised: 05/14/2021 Document Reviewed: 05/14/2021 [employer] Patient Education 2023 [employer] Follow Up Care 06/13/2025 15:22:41 With:TIN GASCA, Niru Sanchez, URL Address: [address] [place], [place] [address]- When: Unknown Comments:cysto [facility] Steph 10-14-2025 NotePatient Education Obstetrics and Gynecology [...] health care provider. General instructions ??? Take jzsf-iik-clgoedh and prescription medicines only as told by [...] you drink, and whe (more content not included)...[facility]08-21-2025 History of Present illness Narrative* Aashish Laguna [...] in PM on an empty stomach. DUARTE; Frontify or [employer] brands only 60 tablet 0 metFORMIN (Glucophage) [...] in PM on an empty stomach. DUARTE; Frontify or [employer] brands only 180 tablet 1 [DISCONTINUED] metoprolol [...] (DEPO-Medrol) injection 80 mg 4. Morbid obesity ([facility]) Encouraged continued walking and lifestyle modification this is a comorbid condition 5. BMI 40.0-44.9, adult ([facility]) Defines the morbid obesity Please Note: Portions of this chart may have been created using voice recognition software. Occasionally a wrong-word or sound-like substitutions may have occurred due to inherent limitations of the voice recognition software. Please read the chart carefully and recognize, using context, where the substitutions may have occurred. documented in this encounterLafayette Regional Health CenterIcmtdmaqev99-19-1626 History of Present illness Narrative* Aashish Laguna [...] discussed with the patient or their sales development representative, their fatigue issues. We discussed how [...] substitutions may have occurred. documented in this encounterLafayette Regional Health CenterLxxlqlnocj67-22-1549 History of Present illness Narrative* Aashish Laguna [...] in PM on an empty stomach. DUARTE; Frontify or [employer] brands only 180 tablet 1 metFORMIN (Glucophage) [...] goal. 3. Stage 3a chronic kidney disease ([facility]) Clarification of stage 3 chronic kidney disease [...] stratification for cardiovascular disease. documented in this encounterLafayette Regional Health CenterLqlttbgkcr40-44-8123 History of Present illness Narrative* Aashish Laguna MD - 12/27/2024 11:30 AM EDT Images from the original note were not included. Patient ID: Patricia Blake is a 74 y.o. female who presents for: Follow up from being in hospital and the SNF Flowsheet Row Patient Outreach from 12/22/2024 in [facility] with Maria T Hunt LPN Hospital Information ED, Hospital or Retirement Facility Discharge? Retirement Facility Discharge Date 12/21/24 Discharged To: Home Setting Retirement Facilities [facility] Engagement Admission Date 12/01/24 Medications Discharge [...] yes What is the home health agency? [facility] NURSE/PT/OT Has home health visited [...] in PM on an empty stomach. DUARTE; Frontify or [employer] brands only 180 tablet 1 metFORMIN (Glucophage) [...] transition of care note is reviewed. a itxg-vt-cwqh evaluation is done today. Medical decision making is complex in degree. documented in this encounterLafayette Regional Health CenterDhvwtdsdph60-81-7276 History of Present illness Narrative* Aashish Laguna [...] analytical performance characteristics have been determined by [email or web address] [place], [place]. It has not been cleared or [...] in PM on an empty stomach. DUARTE; Frontify or [employer] brands only 180 tablet 1 metFORMIN (Glucophage) [...] tablet (300 mg) by mouth Daily 30 [DISCONTINUED] colchicine 0.6 MG tablet initial dose [...] discussed with the patient and/or their sales development representative, their fatigue issues. We discussed how [...] in PM on an empty stomach. DUARTE; Frontify or [employer] brands only Dispense: 180 tablet; Refill: 1 - T3; Future - T3, reverse; Future - T3, free; Future - T3 - T3, reverse - T3, free 4. Morbid obesity (CMS/HCC) Chronic problem that is stable. We did encouraged lifestyle changes but she has been unable to institute them after previous discussions. 5. BMI 40.0-44.9, adult (CMS/HCC) Defines the morbid obesity documented in this encounterLafayette Regional Health CenterUuxjltfrwk92-56-8993 History of Present illness Narrative* Michelle Hui MA - 08/23/2024 1:45 PM EST Images from the original note were not included. Angel Ramsey, DO Obstetrics and Gynecology Patricia Blake 1950 08/23/24 [id number] Yearly Wellness Exam Chief Complaint Patient presents with Gynecologic Exam Medicare yearly. LMP: 2003 HRT: None Last pap 08-14-22 neg. Last mammogram 10-02-23 [facility]. Denies breast, urinary, or bowel concerns. Visit [...] in PM on an empty stomach. DUARTE; Frontify or [employer] brands only 180 tablet 1 metFORMIN (Glucophage) [...] PLACEMENT 12/04/2016 CORONARY STENT PLACEMENT 05/2019 CYSTOSCOPY UT BREAST REDUCTION UT LAP,CHOLECYSTECTOMY Past Medical History: Diagnosis Date Arthritis Atrial fibrillation with rapid ventricular response (CMS/HCC) Bilateral fibrocystic breast changes Bronchitis Cataracts, bilateral Chronic fatigue Congestive heart failure (CHF) (CMS/HCC) Depression (CMS/HCC) Diabetes (CMS/HCC) Diabetic nephropathy associated with type 2 diabetes mellitus (HCC) ([facility]) H/O psychiatric care History of being hospitalized 06/2021 [facility] congestive heart failure, 3 days Hx of psychiatric care Hyperlipidemia ([facility]) Hypertension (CMS/HCC) Hypothyroid ([facility]) ESS Insulin resistance Irritable bowel syndrome with both constipation and diarrhea LAD (lymphadenopathy) Ostial LAD lesion 95% Measles DC (myocardial infarction) ([facility]/HCC) x2 Mild pulmonary hypertension ([facility]) Mumps Nephrolithiasis Obesity Pneumonia PTSD (post-traumatic stress disorder) ([facility]) Serum calcium elevated Stage 3 chronic kidney disease (HCC) ([facility]) ROS Const: [...] costovertebral angle tenderness, no obvious scoliosis/kyphosis. FEMALE GENITOURINARY:social work nurse in room -atrophic changes, loss of color [...] Date 08/23/24 Time 5:00PM. documented in this encounterLafayette Regional Health CenterVdwvbdhebe24-52-6980 History of Present illness Narrative* Aashish Laguna [...] in PM on an empty stomach. DUARTE; Frontify or [employer] brands only 180 tablet 1 metFORMIN (Glucophage) [...] Refill: 1 6. Coronary artery disease involving united auburn coronary artery of united auburn heart without angina pectoris(CMS/HCC) Chronic problem, stable, comanaged with Cardiology. No evidence of angina or anginal equivalents. 7. Pulmonary hypertension ([facility]) In prescribing [...] defines the morbid obesity documented in this encounterLafayette Regional Health CenterKmklyumzpo71-49-5727 History of Present illness Narrative* Aashish Laguna [...] analytical performance characteristics have been determined by [email or web address] [place]. It has not been cleared or [...] 0.55 - 1.02 mg/dL Final TBH EGFR-AF DANISH 03/12/2024 51 (L) >=60 Final TBH EGFR-NON AF DANISH 03/12/2024 42 (L) >=60 Final BUN CREATININE [...] change in test platforms from the [employer] to the Marie alvarez c503 may have shifted HbA1c results compared to historical results. Based on laboratory validation testing conducted at [facility], the Marie platform relative to the Bravo [...] LDL-C. Grayson CALL et al. JAMIE. 2013;310(19): 2100-1062 (http://education.[place] Free Classifieds.EDMdesigner/faq/IFF733) CHOL/HDLC RATIO 02/04/2024 3.9 <5.0 (calc) Final [...] in PM on an empty stomach. DUARTE; Frontify or [employer] brands only 180 tablet 1 metFORMIN (Glucophage) [...] 5 2. Chronic post-traumatic stress disorder (PTSD) ([facility]) Chronic problem, [...] will need to monitorlongitudinally. 4. Morbid obesity ([facility]) Get reviewed [...] with an update. 5. BMI 40.0-44.9, adult ([facility]) Defines the [...] 4 tablet; Refill: 0 documented in this encounterLafayette Regional Health CenterQlbbqvviva61-94-3503 History of Present illness Narrative* Aashish Laguna [...] that were performed or orderedby another health career placement specialist. These are documented in the electronic health record. These were reviewed with the patient. Telephone on 04/13/2024 Component Date Value Ref Range Status T3, TOTAL 04/13/2024 137 76 - 181 ng/dL Final T3 REVERSE, LC/MS/MS 04/13/2024 17 8 - 25 ng/dL Final Comment: This test was developed and its analytical performance characteristics have been determined by [email or web address] [place]. It has not been cleared or [...] 0.55 - 1.02 mg/dL Final TBH EGFR-AF DANISH 03/12/2024 51 (L) >=60 Final TBH EGFR-NON AF DANISH 03/12/2024 42 (L) >=60 Final BUN CREATININE [...] change in test platforms from the [employer] Associate to the Marie alvarez c503 may have shifted HbA1c results compared to historical results. Based on laboratory validation testing conducted at [facility], the Marie platform relative to the Bravo [...] LDL-C. Grayson CALL et al. JAMIE. 2013;310(19): 9239-4179 (http://education.[place] Free Classifieds.EDMdesigner/faq/TMJ877) CHOL/HDLC RATIO 02/04/2024 3.9 <5.0 (calc) Final [...] in PM on an empty stomach. DUARTE; Frontify or [employer] brands only 180 tablet 1 metFORMIN (Glucophage) [...] file prior to visit. 1. Acquired hypothyroidism ([facility]) In prescribing an adjustment to their current [...] discussed with the patient or their sales development representative, their fatigue issues. We discussed how [...] nebulizer. We did make this also a ngap-qu-gjek visit to get that part of the coverage out of the way while she is here. I certify that I had a outi-cf-hqpy encounter with this patient at [facility] office visit. Due to thismedical condition the patient requires DME. I certify that based on my findings The DME ordered is medically necessary for this patient. This has been discussed with the patient and/or their sales development representative and mutually agreed upon. 7. Pulmonary [...] and help venous insufficiency. documented in this encounterLafayette Regional Health CenterXsjljugpqr99-39-9241 Telephone encounter Note* Telephone Encounter - Aashish Laguna MD - 04/28/2024 4:29 PM EDT Called Lora. Discussed to hold tonight's metformin. Discussed how to take. Stay hydrated. Call tomorrow if not better. [facility] CenterUrvyqljeij53-09-7160 Miscellaneous Notes* Telephone Encounter - Aashish Laguna [...] so she can have documented in this encounterLafayette Regional Health CenterDdhgsohnbt77-12-8285 Telephone encounter Note* Telephone Encounter - Mehnaz [...] for the gout so she can have [facility] CenterOyxejmbymt24-96-7595 History of Present illness Narrative* Aashish Laguna MD - 10/15/2023 2:00 PM EST Patient ID: Patricia Blake is a 73 y.o. female who presents for: Pt here today to review his/hers thyroid labs and any medication changes needed. Fatigue: Present, worsened, hasn't been sleeping well, brother was killed in an accident in [facility] Weight Gain: Absent Inability to lose [...] analytical performance characteristics have been [place]. It has not been cleared or [...] in PM on an empty stomach. DUARTE; Frontify or [employer] brands only metFORMIN (GLUCOPHAGE) 1,000 mg, Oral, [...] to credit prescription drug management) Acquired hypothyroidism ([facility]) - levothyroxine [...] discussed with the patient and/or their sales development representative, their fatigue issues. We discussed how [...] related to the above. documented in this encounterLafayette Regional Health CenterFjhspoabba67-77-9538 NotePROCEDURE: XR FOOT RT MIN 3 VIEWS [...] Electronically authenticated by: KEVIN STEWART Date: 2022-10-15 13:30[facility]01-10-2023 History of Present illness Narrative* Brittany Richards RN - 09/17/2022 10:17 AM EST 1017 - Lexiscan started. Pt tolerating well so far. 1020 - Continues to tolerate procedure with no complaints. 1022 - Pt tolerated procedure without complaints. Provided with snack at this time. documented [facility] [employer] Work Phone: [phone]) 681-661106-22-2022 Hospital Discharge instructions Patient Education 02/27/2022 13:43:09 [...] fried and sweet foods. General instructions Take lvhn-hro-rvsxwal and prescription medicines only as told by [...] 06/21/2010 Document Revised: 12/16/2019 Document Reviewed: 09/10/2018 [employer] Patient Education 2020 Thubrikar Aortic Valve. Follow Up Care 02/06/2022 15:12:13 With:FRED LEW PA-C, URL Address: [address] [place] [address] When: Unknown [facility] evaluation + Plan note No data available for this section [facility] evaluation + Plan note Future Appointments Appointment Date:07/05/2025 01:00:00 PM Scheduled Provider: Location:[facility] Appointment Type:Urology CALL PAT FT Appointment Date:07/07/2025 09:30:00 AM Scheduled Provider: Location:[facility] Appointment Type:Urology FT [facility] Evaluation note* Diagnosis Atrial fibrillation, new onset (HCC) Atrial fibrillation documented in this encounter [facility] Phone: evaluation note* Diagnosis Atrial fibrillation, new onset (HCC) Atrial fibrillation Essential hypertension Unspecified essential hypertension Anemia, unspecified type documented in this encounter [facility] Phone: evaluation note* Diagnosis Atrial fibrillation, new onset (HCC) Atrial fibrillation documented in this encounter [employer] Phone: evaluation note* Diagnosis Atrial fibrillation, new onset (HCC) Atrial fibrillation documented in this encounter [employer] Phone: evaluation note* Diagnosis Abnormal EKG Nonspecific abnormal electrocardiogram (ECG) (EKG) Chest pain, unspecified type documented in this encounter [employer] Phone: evaluation noteNo assessment information available [facility] Work Phone: evaluation note* Diagnosis Mild cognitive impairment with memory loss- Primary Mild cognitive impairment, so stated ESS (euthyroid sick syndrome) Euthyroid sick syndrome Acquired hypothyroidism (CMS/HCC) Unspecified hypothyroidism Chronic fatigue syndrome Recurrent major depressive disorder, in partial remission (HCC) (CMS/HCC) Chronic post-traumatic stress disorder (PTSD) ([facility]) documented in this encounter [facility] HealthcareEvaluation note* Diagnosis Essential hypertension Unspecified essential hypertension Stage 3b chronic kidney disease (HCC) ([facility]) Type 2 diabetes mellitus with stage 3b chronic kidney disease, without long-term current use of insulin (HCC) ([facility]) Microalbuminuric diabetic nephropathy ([facility]) Hyperlipidemia, mixed ([facility]) Mixed hyperlipidemia Coronary artery disease involving united auburn coronary artery of united auburn heart without angina pectoris ([facility]) Pulmonary hypertension ([facility]) Other chronic pulmonary heart diseases Morbid obesity ([facility]) Morbid obesity BMI 40.0-44.9, adult ([facility]) documented in this encounter [facility] HealthcareEvaluation note* Diagnosis Recurrent major depressive disorder, in partial remission (HCC) ([facility]) Chronic post-traumatic stress disorder (PTSD) ([facility]) Mild cognitive impairment with memory loss Mild cognitive impairment, so stated Morbid obesity ([facility]) Morbid obesity BMI 40.0-44.9, adult ([facility]) Hyperuricemia Other [...] encounter [facility] HealthcareEvaluation note* Diagnosis Acquired hypothyroidism ([facility])- Primary Unspecified hypothyroidism ESS (euthyroid sick syndrome) Euthyroid sick syndrome Chronic fatigue Other malaise and fatigue Morbid obesity ([facility]) Morbid obesity BMI 40.0-44.9, adult ([facility]) Dyspnea on exertion Other dyspnea and respiratory abnormality Pulmonary hypertension ([facility]) Other chronic pulmonary heart diseases Paroxysmal atrial fibrillation ([facility]) Atrial fibrillation Stage 3b chronic kidney disease (HCC) ([facility]) Iron deficiency anemia, unspecified iron deficiency anemia type Chronic venous insufficiency of lower extremity Recurrent major depressive disorder, in partial remission (HCC) ([facility]) Chronic post-traumatic stress disorder (PTSD) ([facility]) Mild cognitive impairment with memory loss Mild cognitive impairment, so stated Morbid obesity ([facility]) Morbid obesity BMI 40.0-44.9, adult ([facility]) documented in this encounter [facility] HealthcareEvaluation note* Diagnosis Acquired hypothyroidism ([facility])- Primary Unspecified hypothyroidism Chronic fatigue Other malaise and fatigue ESS (euthyroid sick syndrome) Euthyroid sick syndrome Morbid obesity ([facility]) Morbid obesity BMI 40.0-44.9, adult ([facility]) Encounter for Medicare annual wellness exam Advance directive in chart Encounter for screening for other disorder Screening for alcohol problem Screening for alcoholism Morbid obesity ([facility]) Morbid obesity BMI 40.0-44.9, adult ([facility]) Type 2 diabetes mellitus with stage 3a chronic kidney disease, without long-term current use of insulin (HCC) ([facility]) Stage 3b chronic kidney disease (HCC) ([facility] Essential hypertension Unspecified essential hypertension Microalbuminuric diabetic nephropathy ([facility]) Hyperlipidemia, mixed ([facility] Mixed hyperlipidemia documented in this encounter [facility]* Diagnosis Hyperuricemia- Primary Other abnormal blood chemistry Atrial fibrillation with rapid ventricular response ([facility]) Interstitial pulmonary disease ([facility]) Acute idiopathic gout of right ankle Acute idiopathic gout involving toe of right foot Chronic post-traumatic stress disorder (PTSD) ([facility]) Encounter for examination following treatment at hospital documented in this encounter [facility]* Diagnosis Essential hypertension- Primary Unspecified essential hypertension Hypertensive nephropathy Unspecified hypertensive kidney disease with chronic kidney disease stage I through stage IV, or unspecified Stage 3a chronic kidney disease ([facility]) Type 2 diabetes mellitus with stage 3a chronic kidney disease, without long-term current use of insulin ([facility] Hyperlipidemia, mixed Mixed hyperlipidemia Microalbuminuric diabetic nephropathy [...] right Arthritis of knee, left Morbid obesity ([facility]) Morbid obesity BMI 40.0-44.9, adult ([facility]) documented in this encounter [facility] No data available for this section [facility] Summary Purpose Family History No Family [...] of AttorneyTypeDate RecordedPatient RepresentativeExplanationACP-Advance Directive ACP-Power of Engagement Director Advance Directive Response Recorded Date/ Time Advance Directives No July 9:50am Advance Directive Response Recorded Date/ Time Advance Directives No July 10:50am TypeDate RecordedPatient RepresentativeExplanationAdvance Directives and Living Will DNRAdvance Directives and Living Will04/19/2019 [id number] Will Discharge Instructions * Instructions* Candace Thomas [...] Procedures EKG 12 Lead Pacheco Galindo MD [address] [place] [address] StatusReasonSpecialtyDiagnoses / ProceduresReferred By ContactReferred To ContactOpenCardiology Diagnoses Atrial fibrillation, new onset (HCC) Procedures EKG 12 Lead Pacheco Galindo MD [address] [place] [address] SpecialtyDiagnoses / ProceduresReferred By ContactReferred To ContactCardiology Diagnoses Atrial fibrillation, new onset (HCC) Procedures EKG 12 Lead Pacheco Galindo MD [address] [place] [address] Referral IDStatusReasonStart DateExpiration DateVisits RequestedVisits [id number] / ProceduresReferred By ContactReferred To ContactCardiology Diagnoses Abnormal EKG Chest pain, unspecified type Procedures Stress test, Pacheco Santo MD [address] [place] [address] Referral IDStatusReasonStart DateExpiration DateVisits RequestedVisits [id number]/10/20231/ Assessments Diagnosis SOB (shortness of breath) Shortness [...] section and content) DATE CREATED AUTHOR 06/09/2019 [facility] DATE CREATED AUTHOR AUTHOR'S ORGANIZ ATION 11/17/2021 [facility] DATE CREATED AUTHOR AUTHOR'S ORGANIZ ATION 09/20/2022 [facility] DATE CREATED AUTHOR AUTHOR'S ORGANIZ ATION 12/13/2022 [facility] DATE CREATED AUTHOR AUTHOR'S ORGANIZ ATION 11/30/2024 [facility] DATE CREATED AUTHOR AUTHOR'S ORGANIZ ATION 06/18/2025 [facility] DATE CREATED AUTHOR AUTHOR'S ORGANIZ ATION 06/23/2025 [facility] DATE CREATED AUTHOR AUTHOR'S ORGANIZ ATION 06/26/2025 [facility] DATE CREATED AUTHOR AUTHOR'S ORGANIZ ATION 07/02/2025 [facility] EPIC DATE CREATED AUTHOR AUTHOR'S ORGANIZ ATION 07/08/2025 [facility] Niru Galindo MD - 05/18/2019 7:40 AM EDT H&P Notes (unrecognized sect ion and content) Niru Galindo M.D. [facility] [place] [id number] May 17, 2019 Aashish Laguna MD [address] [place] [phone] RE: Patricia Blake : [address] [...] FAMILY HISTORY: Mother at 73 of an DC. Father of DC at 76. Three brothers at 64, 55,and 76. One sister had an DC at 79. SOCIAL HISTORY: She is 69 years old. Never . No children. Lives in [place]. 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 She has not been exercising because of [...] Lexiscan Cardiolite stress test in April at [place] showing anterior wall ischemia or infarct, intermediate [...] contact me. Sincerely, NIRU GALINDO GV/[id number] Doc#: [id number] documented in this encounter Reason for Visit (unrecogniz ed section and content) StatusReasonSpecialtyDiagnoses / ProceduresReferred By ContactReferred To ContactClosedCardiology Diagnoses Unspecified atrial fibrillation Procedures UT CARDIOVERSION ELECTIVE ARRHYTHMIA EXTERNAL Pacheco Galindo MD [address] [place] [address] [facility] [address] [place] [address] SpecialtyDiagnoses / ProceduresReferred By ContactReferred To Contact Diagnoses Atrial fibrillation, new onset (HCC) SOB (shortness of breath) I48.91 (ICD-10-CM) - Atrial fibrillation, new onset (HCC) Procedures Holter Monitor 48 Hour UT CARDIOVERSION ELECTIVE ARRHYTHMIA EXTERNAL [id number] - UT CARDIOVERSION ELECTIVE ARRHYTHMIA EXTERNAL Pacheco Galindo MD [address] [place] [address] Referral IDStatusReasonStart DateExpiration DateVisits RequestedVisits [id number]/25/[id number] / Procedures Referred By ContactReferred To ContactCardiology Diagnoses Abnormal EKG Chest pain, unspecified type Procedures Stress test, lexiscan Pacheco Galindo MD [address] [place] [address] Referral IDStatusReasonStart DateExpiration DateVisits RequestedVisits [id number]/10/20231/[id number]jiabgzaQsfkir CommentsHypertensionHyperlipidemiaDiabetesReasonCommentsAnxietySleeping Problem ReasonCommentsGynecologic ExamMedicare yearly.LMP: 2004HRT: NoneLast pap 08-14-22 neg.Last mammogram 10-02-23 [facility].Denies breast, urinary, or bowel concerns. ReasonCommentsFollow-upReasonCommentsHypothyroidismAnxietyReasonCommentsKnee Pain Care Teams (unrecognized sec tion and content) Team MemberRelationshipSpecialtyStart DateEnd Date Aashish Laguna MD [facility] - General11/14/16Team MemberRelationshipSpecialtyStart DateEnd Date Aashish Laguna MD PCP - General11/14/16Team MemberRelationshipSpecialtyStart DateEnd Date Aashish aLguna MD PCP - General11/14/16Team MemberRelationshipSpecialtyStart DateEnd Date [...] 2023Team MemberRelationshipSpecialtyStart DateEnd Date Aashish Laguna MD [address] [place] [address] PCP - [facility]01/30/23 Aashish Laguna MD [address] [place] [address] PCP - GeneralFamily [facility]03/20/23 Niru Galindo MD [address] [place] [address] Referring AnbqudcdqXnyafqzxtk97/13/23Team MemberRelationshipSpecialtyStart Date End Date Aashish Laguna MD [address] [place] [address] (Fax) PCP - [facility]01/30/23 Aashish Laguna MD [address] [place] [address] PCP - GeneralFamily Medicine03/20/23 Niru Galindo MD [address] [place] [phone] Referring PmgmnkysmGxqifavanx58/13/23Team MemberRelationshipSpecialtyStart Date End Date Aashish Laguna MD [address] [place] [address] (Fax) PCP - [facility]01/30/23 Aashish Laguna MD [address] [place] [address] (Fax) PCP - [facility]03/20/23 Niru Galindo MD [address] [place] [phone] Referring VkmhyqvpxWhkaednftc21/13/23 Niru Oseguera MD [address] [place] [address] Referring PhysicianUrology12/02/23Team MemberRelationshipSpecialtyStart DateEnd Date Aashish Laguna MD [address] [place] [address] (Fax) PCP - [facility]01/30/23 Aashish Laguna MD [address] [facility] [address] [place] [address] (Fax) PCP - GeneralFamily Medicine03/20/23 Niru Galindo MD [address] [place] [address] Referring LjivxdqjhPblgxwgdco08/13/23 Niru Oseguera MD [address] [place] [address] Referring PhysicianUrology12/02/23Team MemberRelationshipSpecialtyStart DateEnd Aashish Laguna MD [address] [place] [address] (Fax) PCP - [facility]01/30/23 Aashish Laguna MD [address] [place] [address] PCP - GeneralFamily Medicine03/20/23 Niru Galindo MD [address] [place] [address] Referring CffnkukccBcnrilmiae73/13/23 Niru Oseguera MD [address] [place] [address] Referring PhysicianUrology12/02/23Team MemberRelationshipSpecialtyStart DateEnd Date Aashish Laguna MD [address] [facility] [address] [place] [address] (Fax) PCP - [facility]01/30/23 Aashish Laguna MD 112 [facility] 100 [place] [address] (Fax) PCP - GeneralFamily Medicine03/20/23 Niru Galindo MD [address] [place] [address] Referring BkdgmuozuOzrrsiudcc28/13/23 Niru Oseguera MD [address] [place] [address] Referring PhysicianUrology12/02/23Team MemberRelationshipSpecialtyStart DateEnd Date Aashish Laguna MD [address] [place] [phone] (Fax) PCP - [facility]01/30/23 Aashish Laguna MD [address] [place] [phone] PCP - [facility]03/20/23 Niru Galindo MD [address] [place] [address] Referring LngjmyzniWnmrusewii13/13/23 Niru Oseguera MD [address] [place] [address] Referring PhysicianUrology12/02/23Team MemberRelationshipSpecialtyStart DateEnd Aashish Laguna MD [address] [place] [address] (Fax) PCP - [facility]01/30/23 Aashish Laguna MD [address] [place] [address] PCP - [facility]03/20/23 Niru Galindo MD [address] [place] [phone] Referring XoodllujlMvrxmbdnpq03/13/23 Niru Oseguera MD [address] [place] [address] Referring PhysicianUrology12/02/23Team MemberRelationshipSpecialtyStart DateEnd Date Aashish Laguna MD [address] [place] [phone] (Fax) PCP - [facility]01/30/23 Aashish Laguna MD [address] [place] [address] PCP - [facility]03/20/23 Niru Galindo MD [address] [place] [phone] Referring XcyxcftqlYzeegarqyj34/13/23 Niru Oseguera MD [address] [place] [address] Referring PhysicianUrology12/02/23Team MemberRelationshipSpecialtyStart DateEnd Date Aashish Laguna MD [address] [place] [address] (Fax) PCP - [facility]01/30/23 Aashish Laguna MD [address] [place] [address] PCP - GeneralFamily Medicine03/20/23 Niru Galindo MD [address] [place] [address] Referring SmtpclyiuJdcictrqsu93/13/23 Niru Oseguera MD [address] [place] [address] Referring PhysicianUrology12/02/23Team MemberRelationshipSpecialtyStart DateEnd Date Aashish Laguna MD [address] [place] [address] (Fax) PCP - [facility]01/30/23 Aashish Laguna MD [address] [place] [address] (Fax) PCP - Generalmily [facility]03/20/23 Niru Galindo MD [address] [place] [address] Referring AwsfvujgmIzhbnlezbu54/13/23 Niru Oseguera MD [address] [place] [address] Referring PhysicianUrology12/02/23Team MemberRelationshipSpecialtyStart DateEnd Date Aashish Laguna MD [address] [place] [address] (Fax) PCP - [facility]01/30/23 Aashish Laguna MD [address] [place] [address] (Fax) PCP - [facility]03/20/23 Niru Galindo MD [address] [place] [address] Referring TmfhbeajwCcceededfv55/13/23 Niru Oseguera MD [address] [place] [address] Referring PhysicianUrology12/02/23 Team Status: Inactive Member Role Status Dates Aashish Laguna MD Primary Care Provider Active Start: November 25, 2024 End: November 25, 2024Angel Ramsey , Michelleending ProviderActiveStart: November 25, 2024 End: November 25, 2024 Team Status: Inactive Member Role Status Dates Abdoulaye Brothers MD Attending Provider Active St art: November 28, 2024 End: November 28, 2024Team MemberRelationshipSpecialtyStart DateEnd Date Aashish Laguna MD [address] [facility] [address] [place] [address] (Fax) PCP - [facility]01/30/23 Niru Galindo MD [address] [place], [place] [phone] Referring OvgqzrewnHzdnprfkck20/13/23 Niru Oseguera MD [address] [place] [address] Referring PhysicianUrology12/02/23Team MemberRelationshipSpecialtyStart DateEnd Date Aashish Laguna MD [address] [address] (Fax) PCP - [facility]01/30/23 Niru Galindo MD [address] [place] [address] Referring AchmdiijrNfhwanogqc88/13/23 Niru Oseguera MD [address] [place] [place] [address] Referring PhysicianUrology12/02/23Team MemberRelationshipSpecialtyStart DateEnd Aashish Laguna MD [address] [address] (Fax) PCP - [facility]01/30/23 Aashish Laguna MD [address] [address] (Fax) PCP - GeneralFamily Medicine01/11/25 Niru Galindo MD [address] [place] [address] Referring HzyvtfqfgJmikykxdrs84/13/23 Niru Oseguera MD [address] [place] [address] Referring PhysicianUrology12/02/23Team MemberRelationshipSpecialtyStart DateEnd Date Aashish Laguna MD [address] [address] (Fax) PCP - [facility]01/30/23 Aashish Laguna MD [address] [address] (Fax) PCP - GeneralFamily Medicine01/11/25 Niru Galindo MD [address] [place] [address] Referring YphtpfrtpKyoxmtlzzy15/13/23 Niru Oseguera MD [address] [place] [place] [address] Referring PhysicianUrology12/02/23Team MemberRelationshipSpecialtyStart DateEnd Aashish Laguna MD [address] [address] (Fax) PCP - [facility]01/30/23 Aashish Laguna MD [address] [address] (Fax) PCP - [facility]01/11/25 Niru Galindo MD [address] [place] [address] Referring PdodqtdtiXsmjlwfpys54/13/23 Niru Oseguera MD [address] [place] [address] Referring PhysicianUrology12/02/23Team MemberRelationshipSpecialtyStart DateEnd Date Aashish Laguna MD [address] [address] (Fax) PCP - [facility]01/30/23 Aashish Laguna MD [address] [facility] [address] [place] [address] (Fax) PCP - GeneralFamily Medicine01/11/25 Niru Galindo MD [address] [place] [phone] Referring NmzrbfzqnOqoxtfhvox81/13/23 Niru Oseguera MD [address] [place] [place] [address] Referring PhysicianUrology12/02/23Team MemberRelationshipSpecialtyStart DateEnd Aashish Laguna MD 112 [facility] 100 [place] [address] (Fax) PCP - [facility]01/30/23 Aashish Laguna MD [address] [address] (Fax) PCP - [facility]01/11/25 Niru Galindo MD [address] [place] [phone] Referring AlkqhybquAgjextthfy19/13/23 Niru Oseguera MD [address] [place] [address] Referring PhysicianUrology12/02/23Team MemberRelationshipSpecialtyStart DateEnd Date Aashish Laguna MD [address] [place] [address] (Fax) PCP - [facility]01/30/23 Aashish Laguna MD [address] [address] (Fax) PCP - Generalmily Medicine01/11/25 Niru Galindo MD [address] [place] [address] Referring PlspakwjkAlvvuwlrvj25/13/23 Niru Oseguera MD [address] [place] [address] Referring PhysicianUrology12/02/23Team MemberRelationshipSpecialtyStart DateEnd Date Aashish Laguna MD [address] [address] (Fax) PCP - [facility]01/30/23 Aashish Laguna MD [address] [address] (Fax) PCP - [facility]01/11/25 Niru Galindo MD [address] [place] [address] Referring KmqbcgkwlScrraxpmzw58/13/23 Niru Oseguera MD [address] [place] [address] Referring PhysicianUrology12/02/23 Carol Horne, SCREW EYE ASSEMBLER [address] [place] [address] Social WorkerBoston Sanatorium MedicineTeam MemberRelationshipSpecialtyStart DateEnd Date Aashish Laguna MD 112 [facility] 100 [place] [address] PCP - [facility]01/30/23 Aashish Laguna MD [address] [facility] [address] [place] [address] PCP - GeneralFami Medicine01/11/25 Niru Galindo MD [address] [place], [place] [address] Referring GkjbujporBsmxhzhgwp86/13/23 Niru Oseguera MD [address] [facility] [place] [address] Referring PhysicianUrology12/02/23 Craol Horne, SCREW EYE ASSEMBLER [address] [place] [address] Social WorkerAugusta University Children[facility] Goals (unrecognized section and content) Goals may [...] BE BASED ON THE PRIMARY CLINICAL RECORDS. [facility] [employer] [facility] [place] [facility]. provides no warranty or guarantee of the accuracy or completeness of information in this document.
[2025-07-31] MEDS: POTASSIUM CHLORIDE 10 MEQ ER TABLET 20 MEQ PO (22:18)
[2025-07-31] MEDS: APIXABAN 5 MG TABLET PO (22:19)
[2025-07-31] MEDS: DILTIAZEM HCL 120 MG CAP.ER.24H PO (22:19)
[2025-07-31] MEDS: BUPROPION HCL 150 MG SR TABLET 12H PO (22:19)
[2025-07-31] MEDS: MAGNESIUM SULFATE IN WATER 2 GM/50 ML PREMIX IV (22:20)
[2025-08-01] VITALS (24 sets, daily range): BP systolic 125–151; BP diastolic 52–68; PULSE 63–97; TEMP 36.2–36.8; O2SAT 92–98
[2025-08-01 05:25] LABS: Hematocrit 31.6 % (36.0-48.0); Hemoglobin 9.8 g/dL (12.0-16.0); Immature Granulocytes Abs Auto 0.09 10^3/uL (0.00-0.03); Immature Granulocytes Pct Auto 1.1 % (0.0-0.5); Lymphocytes Absolute Auto 0.7 10^3/uL (1.2-3.8); Mean Corpuscular HGB Conc 31.0 g/dL (29.9-35.2); Mean Corpuscular Hemoglobin 28.7 pg (26.7-34.0); Mean Corpuscular Volume 92.4 fL (81.0-99.0); Platelet Count 171 10^3/uL (150-450); Red Blood Count 3.42 10^6/uL (4.20-5.40); White Blood Count 8.5 10^3/uL (4.0-11.0)
[2025-08-01 05:56] LABS: Anion Gap 11.6; Blood Urea Nitrogen 17.0 mg/dL (7.0-18.0); Calcium 9.4 mg/dL (8.5-10.1); Carbon Dioxide 30.1 mmol/L (21.0-32.0); Chloride 106 mmol/L (98-107); Cholesterol 114 mg/dL (<=200); Estimated GFR (African America >60 (>=60 mL/min/1.73m^2); Estimated GFR (Non-African Ame >60 (>=60 mL/min/1.73m^2); Glucose 187 mg/dL (74-106); HDL Cholesterol 28 mg/dL (40-60); Magnesium 2.1 mg/dL (1.8-2.4); Potassium 3.7 mmol/L (3.5-5.1); Sodium 144 mmol/L (136-145); Thyroid Stimulating Hormone 0.012 uIU/mL (0.358-3.740); Triglycerides 71 mg/dL (<=150); VLDL CHOLESTEROL 14.2 mg/dL
--- NOTE | 2025-08-01 07:30 | CM.NOTE ---
Rounds made with Dr. Eli, discussed diagnosis and plan of care with pt. Pt is inpatient status, no discharge today. Continue treatment as ordered.
--- NOTE | 2025-08-01 08:00 | ECG_ITS ---
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 Measurements Intervals [place] Rate: 71 P: DC: QRS: 58 QRSD: 92 T: 29 QT: 368 QTc: 402 Interpretive Statements ATRIAL FIBRILLATION NONSPECIFIC ST & T-WAVE ABNORMALITY ABNORMAL ECG Compared to ECG 07/31/2025 17:49:38 Right-axis deviation no longer present Electronically Signed On 08-01-2025 19:33:44 EST by BRI PERKINS M.D.
[2025-08-01] MEDS: DILTIAZEM HCL 120 MG CAP.ER.24H PO ×2 (08:20→20:30)
[2025-08-01] MEDS: ALLOPURINOL 300 MG TABLET PO (08:20)
[2025-08-01] MEDS: BUPROPION HCL 150 MG SR TABLET 12H PO ×2 (08:20→20:30)
[2025-08-01] MEDS: APIXABAN 5 MG TABLET PO ×2 (08:21→21:36)
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
[2025-08-01] MEDS: FUROSEMIDE 20 MG/2 ML VIAL 30 MG IVP ×2 (11:36→20:30)
--- NOTE | 2025-08-01 12:50 | CM.NOTE ---
Important Message From Medicare discussed with pt, pt verbalizes understanding and signs paper. Original given to pt and copy placed on pt's chart.
--- NOTE | 2025-08-01 13:37 | SWNOTE1 ---
SW attempted to see pt, but she was sleeping in recliner. SW to stop back later today.
[2025-08-01] MEDS: POTASSIUM CHLORIDE 10 MEQ ER TABLET 30 MEQ PO (15:06)
--- NOTE | 2025-08-01 15:32 | SWNOTE1 ---
SW met with pt to discuss dc needs. Pt lives at home alone. She does use a walker. Pt has 13 steps in her home to go up and down. Pt did voice it is getting harder to go up the steps. She does not have any services coming in to the home. Pt has been talking to her brother about the apartment complex he lives in in [place] that has an elevator. SW asked if she has tried [employer] in [place]? She stated she has not. SW offered to call and bring her an application. Pt is in agreement. SW let pt know that they also have an elevator. Pt voiced she was doing alright at home, it is just the steps.
--- NOTE | 2025-08-01 15:39 | SWNOTE1 ---
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 She voiced they do have openings and that SW can fax the application back to her and they will review. MARISOL took the [employer] application to pt. SW asked if she would like to fill it out and if she would like SW to assist. Pt currently is renting from a friend and does not have a lease and does not have to worry about selling anything. Pt would like to look over the application and think about it. Pt voiced the thought of moving does not sound fun. SW encouraged her to think about it as it may be very beneficial for her so she does not have stairs to worry about. Pt voiced appreciation.
--- NOTE | 2025-08-01 16:16 | PC.NURSE ---
Pt continues to decline insulin coverage for fingersticks, despite level going higher. States, I don't take it at home so I don't want to get started on it! Informed that it is just while she is in the hospital, but pt respectfully declines. Will be giving pt's Metformin soon po.
[2025-08-01] MEDS: METFORMIN HCL 500 MG TABLET 1000 MG PO (16:19)
[2025-08-01] MEDS: ATORVASTATIN CALCIUM 10 MG TABLET PO (21:36)
[2025-08-02] VITALS (24 sets, daily range): BP systolic 104–135; BP diastolic 56–78; PULSE 75–112; TEMP 36.4–36.9; O2SAT 91–97
[2025-08-02] MEDS: LEVOTHYROXINE SODIUM 100 MCG TABLET PO (05:32)
[2025-08-02 06:21] LABS: Anion Gap 10.0; Blood Urea Nitrogen 30.0 mg/dL (7.0-18.0); Calcium 9.1 mg/dL (8.5-10.1); Carbon Dioxide 30.7 mmol/L (21.0-32.0); Chloride 106 mmol/L (98-107); Estimated GFR (African America >60 (>=60 mL/min/1.73m^2); Estimated GFR (Non-African Ame >60 (>=60 mL/min/1.73m^2); Glucose 123 mg/dL (74-106); Potassium 3.7 mmol/L (3.5-5.1); Sodium 143 mmol/L (136-145)
[2025-08-02 06:24] LABS: NT Pro B Type Natriuretic Pept 2544.0 pg/mL (<=1800.0)
--- NOTE | 2025-08-02 07:00 | CA_ITS ---
Patient Name: PATRICIA ORNELAS MR#: [id number] : 1950 Exam Date: 08/02/2025 Ordering Doctor: PITO HADDAD ECHOCARDIOGRAM REPORT PROCEDURE: CA ECHO LIMITED INDICATIONS: CHF COMPARISON: None. DESCRIPTION: Limited ECHOCARDIOGRAM Real-time transthoracic echocardiography with 2D and M-mode performed. QUALITY: Technical quality was good. LEFT VENTRICLE: Normal chamber size. Mild concentric left ventricular hypertrophy. Global left ventricular systolic function is normal. Estimated left ventricular ejection fraction is 60%. LV EF: Normal left ventricular ejection fraction, (>55%). DIASTOLIC: ATRIAL SEPTUM: LEFT ATRIUM: Severe dilatation. RIGHT ATRIUM: Severe dilatation. RIGHT VENTRICLE: Normal chamber size. Normal right ventricular systolic function. TRICUSPID VALVE: Normal mobility and thickness. MITRAL VALVE: Normal mobility and thickness. There is no mitral annular calcification. AORTIC VALVE: Normal trileaflet appearance. Mildly calcified aortic valve. Mildly diminished mobility. AORTIC ROOT: Normal diameter and appearance. PULMONIC VALVE: Normal thickness and mobility. PERICARDIUM: No evidence of pericardial effusion. IVC: Collapses with inspiration. The IVC is normal in size measuring 2.0 cm. PLEURA: CONCLUSION: 1. Mild concentric left ventricular hypertrophy with normal systolic function. Estimated LVEF is 60%. 2. Normal right ventricular size and systolic function. 3. Severe biatrial dilatation. 4. No pericardial effusion. 5. Limited study performed with no Doppler interrogation as requested. Adult Echocardiography Procedure Report Left Ventricle LVEDD (3.7 - 5.6 cm): 4.08 cm LVESD (2.2 - 4.0 cm): 2.56 cm LVIVS thickness (0.6 - 1.2 cm): 1.17 cm LVPW thickness (0.5 - 1.0 cm): 1.25 cm LVOT Diameter 2.02 cm Left Ventricular Ejection Fraction: 60 % Left Atrium LA Volume Index (2D A2C): 52.56 ml/m2 Left Atrium Systolic Dimension: 4.50 cm Mitral Valve Right Ventricle RV Internal Diastolic Dimension: 3.90 cm Aorta AO Root Diam: 2.93 cm Ascending Ao Diam: 3.00 cm Aortic Valve Tricuspid Valve Pulmonic Valve Right Atrium Right Atrium Systolic Pressure: 56.10 ml, 56.10 ml Dictated by: Arslan Erazo M.D. on 08/02/2025 at 21:38 Approved by: Arslan Erazo M.D. on 08/02/2025 at 21:41
--- NOTE | 2025-08-02 08:20 | CM.NOTE ---
Rounds made with Dr. Eli, discussed plan of care with pt. Pt will have cardiac echo today, possible discharge this evening. No discharge needs identified at this time. Pt will f/u with Dr. Pérez.
[2025-08-02] MEDS: BUPROPION HCL 150 MG SR TABLET 12H PO ×2 (08:40→20:42)
[2025-08-02] MEDS: DILTIAZEM HCL 120 MG CAP.ER.24H PO ×2 (08:40→20:41)
[2025-08-02] MEDS: METFORMIN HCL 500 MG TABLET 1000 MG PO ×2 (08:40→17:10)
[2025-08-02] MEDS: ALLOPURINOL 300 MG TABLET PO (08:41)
[2025-08-02] MEDS: APIXABAN 5 MG TABLET PO ×2 (08:41→20:42)
--- NOTE | 2025-08-02 11:31 | PM.PN ---
Progress Note: Subjective Subjective Interval history: Patient is feeling much better. Resolution of shortness of breath. No chest pain or palpitation. Heart rate is in the 70s on 50 mg twice a day of metoprolol that is a reduced dose. No tachycardia. Exam Narrative Exam Narrative: [pt is awake and alert. oriented to place, time and person HEENT: [place] conjunctiva and NL buccal mucosa Neck: Supple, no tenderness Endocrine: No Thyromegaly. Vascular: No JVD or carotid bruit. Lymphatic: No cervical lymphadenopathy. Chest: Complete resolution bilateral fine crackles Heart IRRR, no extra sound or murmur. Abd: Soft, no tenderness, no rebound and no rigidity. Increase abd girth therefore clinically I could not exclude the possibility of intra abd mass or organomegaly. LE: No cyanosis or clubbing, no varices or edema. Patient reported that her lower extremities were swollen on her presentation to the emergency room but today there is no edema. Neuro: A A O. Nl speech, comprehension and attention. Nl and symetrical motor and tone examination through out. []] Constitutional Vital Signs, click to edit/add: Last Vital Signs Temp 97.9 F 08/03/25 08:00 Pulse 84 08/03/25 10:18 Resp 20 08/03/25 10:18 BP 158/80 H 08/03/25 11:17 Pulse Ox 94 L 08/03/25 10:18 O2 Del Method Room Air 08/03/25 10:18 O2 Flow Rate 1 08/01/25 10:30 Progress Note: A&P Assessment and Plan (1) CHF exacerbation: Plan Acute hypoxic respiratory failure manifested by tachypnea, using accessory muscles, unable to speak in full sentences and saturation 88% on presentation to the emergency room department. Acute diastolic heart failure Patient was admitted to the medical floor. I started her on diuretics. She is 3.6 L negative balance Patient is feeling better. Saturation is up to 97% on 1 L. Chest x-ray showed vascular congestion. Elevated BNP. Repeat BNP is down from 4000 to 2500 Repeat chest x-ray showed resolution of interstitial edema. Recent echocardiogram completed less than a year ago showed normal ejection fraction. Possible biatrial enlargement, mild aortic stenosis and regurgitation. Repeat echo is pending. No chest pain. Negative troponin. Continue diuresis Repeat chest x-ray Unknown trigger. Her blood pressure was elevated in the emergency room department. This could have been the trigger for decompensated diastolic heart failure. Continue Cardizem 120 twice a day. Continue metoprolol. Dose down changed to 50 twice daily due to stable heart rate. Her heart rate is very well-controlled with the continuation of Cardizem and metoprolol as listed Added losartan 50 mg daily for added blood pressure control Increase Lasix to 20 mg twice a day to keep patient in euvolemic state Continue spironolactone. Dose reduced from 50 down to 25 mg daily given the addition of losartan and that is to reduce her risk having hyperkalemia. Discharge medications as listed are not final or set in stone. 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 Chronic A-fib. Continue beta-larissa, calcium larissa and Eliquis Patient is to follow-up with the cardiology. Adjustments were made to achieve better blood pressure control and reduce the risk having bradycardia. Anemia, no evidence of acute blood loss. Patient will likely require to have anemia workup to be done in the outpatient setting to be handled by PCP in collaboration with other needed outpatient providers. This may include but not limited to EGD, colonoscopy, referral to see hematology and other needed age-appropriate cancer screening. Hypothyroidism TSH is suppressed therefore I will reduce her Synthroid dose And recommend repeat TSH in 4 weeks Diabetes Continue metformin. Accu-Chek with a sliding scale coverage Chronic, subacute medical conditions not listed above, abnormal labs and imaging, incidental findings seen on labs and or imaging. These would need to be addressed. Could be addressed later on or in the outpatient setting by PCP collaboration with other needed outpatient providers when time and condition are appropriate.
--- NOTE | 2025-08-02 13:21 | SWNOTE1 ---
MARISOL stopped in pt's room to see if she would like to move forward with [employer] application. At this time pt is not ready to complete. MARISOL advised pt that she can call SW anytime for assistance.
--- NOTE | 2025-08-02 13:36 | XR_ITS ---
The [address] [address] Patient Name: PATRICIA ORNELAS MRN: [id number] date: 1950 Sex: F Assigned Patient Location: [place] Current Patient Location: [place] Accession/Order Number: [id number] Exam Date: 08/02/2025 14:15 Report Date: 08/02/2025 14:50 At the request of: PITO HADDAD MD Procedure: XR chest 1V Single view chest: CLINICAL HISTORY: CHF. Comparison to last COMPARISON: Chest 07/31/2025 FINDINGS: The degree of vascular congestion appears to have improved since the prior study. Cardiomegaly is unchanged. No free air. XR/XR chest 1V IMPRESSION: IMPROVED VASCULAR CONGESTION SINCE THE PRIOR STUDY. Impression dictated by: Layo Damon Jr.OMarcello 08/02/2025 2:50 PM Dictation Location: [place] [address] Electronically authenticated by: [id number] Y Date: 08/02/2025 14:50
--- NOTE | 2025-08-02 14:00 | CM.NOTE ---
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 Obtained updated med list from Cardiology and given to Dr. Eli. Pt will discharge to home and f/u with cardiology and PCP. Pt verbalizes understanding of change in medications.
[2025-08-02] MEDS: METOPROLOL TARTRATE 50 MG TABLET PO ×2 (14:05→20:42)
[2025-08-02] MEDS: ACETAMINOPHEN 325 MG TABLET 650 MG PO (17:17)
[2025-08-02] MEDS: ATORVASTATIN CALCIUM 10 MG TABLET PO (21:34)
[2025-08-03] VITALS (11 sets, daily range): BP systolic 141–180; BP diastolic 64–84; PULSE 75–96; TEMP 36.4–36.6; O2SAT 94–95
[2025-08-03] MEDS: LEVOTHYROXINE SODIUM 100 MCG TABLET PO (05:53)
--- NOTE | 2025-08-03 07:35 | CM.NOTE ---
Addendum entered by Annie Richards 08/03/25 09:51: Pt being discharged today. Follow up appt made with PCP and Cardiology. Original Note: Rounds made with Dr. Eli, Pt being discharged discharged. Pt to follow up with PCP.
[2025-08-03] MEDS: METOPROLOL TARTRATE 50 MG TABLET PO (10:09)
[2025-08-03] MEDS: METFORMIN HCL 500 MG TABLET 1000 MG PO (10:09)
[2025-08-03] MEDS: BUPROPION HCL 150 MG SR TABLET 12H PO (10:09)
[2025-08-03] MEDS: DILTIAZEM HCL 120 MG CAP.ER.24H PO (10:10)
[2025-08-03] MEDS: APIXABAN 5 MG TABLET PO (10:10)
[2025-08-03] MEDS: ALLOPURINOL 300 MG TABLET PO (10:11)
--- NOTE | 2025-08-03 11:29 | PM.DS1 ---
DS: Providers Provider Date of admission: 07/31/25 19:26 Primary care physician: AZRA LAGUNA Consults: 07/31/25 Consult to Farm Equipment Technician Routine Has provider been notified: No Reason for consult:: Other Other reason:: stairs DS: Diagnosis Discharge Diagnosis (1) CHF exacerbation: Plan As listed above, below and others that are not listed DS: Summary Hospital Course Hospital Course: Mrs. Blake is a 75-year-old female who came in with shortness of breath. She was found to have the following: Acute hypoxic respiratory failure manifested by tachypnea, using accessory muscles, unable to speak in full sentences and saturation 88% on presentation to the emergency room department. Acute diastolic heart failure Patient was admitted to the medical floor. I started her on diuretics. She is 3.6 L negative balance Patient is feeling better. Saturation is up to 97% on 1 L. Chest x-ray showed vascular congestion. Elevated BNP. Repeat BNP is down from 4000 to 2500 Repeat chest x-ray showed resolution of interstitial edema. Recent echocardiogram completed less than a year ago showed normal ejection fraction. Possible biatrial enlargement, mild aortic stenosis and regurgitation. Repeat echo is pending. No chest pain. Negative troponin. Continue diuresis Repeat chest x-ray Unknown trigger. Her blood pressure was elevated in the emergency room department. This could have been the trigger for decompensated diastolic heart failure. Continue Cardizem 120 twice a day. Continue metoprolol. Dose down changed to 50 twice daily due to stable heart rate Added losartan 50 mg daily for added blood pressure control Increase Lasix to 20 mg twice a day to keep patient in euvolemic state Continue spironolactone. Dose reduced from 50 down to 25 mg daily given the addition of losartan and that is to reduce her risk having hyperkalemia. Discharge medications as listed are not final or set in stone. Primary care doctor and her vermin exterminator will need to titrate and adjust medications as soon as the first post discharge visit based on clinical progression, vitals signs, volume status and other related organs function. Chronic A-fib. Continue beta-larissa, calcium larissa and Eliquis Patient is to follow-up with the cardiology. Adjustments were made to achieve better blood pressure control and reduce the risk having bradycardia. Anemia, no evidence of acute blood loss. Patient will likely require to have anemia workup to be done in the outpatient setting to be handled by PCP in collaboration with other needed outpatient providers. This may include but not limited to EGD, colonoscopy, referral to see hematology and other needed age-appropriate cancer screening. Hypothyroidism TSH is suppressed therefore I will reduce her Synthroid dose And recommend repeat TSH in 4 weeks Diabetes Continue metformin. Accu-Chek with a sliding scale coverage Chronic, subacute medical conditions not listed above, abnormal labs and imaging, incidental findings seen on labs and or imaging. These would need to be addressed. Could be addressed later on or in the outpatient setting by PCP collaboration with other needed outpatient providers when time and condition are appropriate. Patient has multiple complex medical issues as listed above and others that are not listed. All appear to be stable. Patient wants to go home. Patient does not want stay longer. At this time, I do not have any clear or strong clinical justification to extend inpatient hospitalization. Patient however will require close and frequent monitoring as well as additional work-up, investigation and therapeutic intervention that could take place from this point on post discharge. That is to prevent relapse, decompensation, rehospitalization and other medical implications. Once again, discharge medications as listed are not final or set in stone. Primary care doctor and other out patient providers will need to titrate and adjust medications as soon as the first post discharge visit based on clinical progression, vitals signs, volume status and other related organs function. I instructed patient to ask her primary care doctor to obtain [facility] record entirely to address abnormalities seen on labs and imaging that I have and have not addressed during this hospitalization, follow-up on pending blood work, imaging and pathology is if available and to follow-up on needed medical care in the outpatient setting. Time Spent with Patient Time attestation: Total time spent providing and/or coordinating discharge services: Time spent: greater than 30 minutes Exam Narrative Exam Narrative: [pt is awake and alert. oriented to place, time and person HEENT: [place] conjunctiva and NL buccal mucosa Neck: Supple, no tenderness Endocrine: No Thyromegaly. Vascular: No JVD or carotid bruit. Lymphatic: No cervical lymphadenopathy. Chest: Complete resolution bilateral fine crackles Heart IRRR, no extra sound or murmur. Abd: Soft, no tenderness, no rebound and no rigidity. Increase abd girth therefore clinically I could not exclude the possibility of intra abd mass or organomegaly. LE: No cyanosis or clubbing, no varices or edema. Patient reported that her lower extremities were swollen on her presentation to the emergency room but today there is no edema. Neuro: A A O. Nl speech, comprehension and attention. Nl and symetrical motor and tone examination through out. []] Constitutional Vital Signs, click to edit/add: Last Vital Signs Temp 97.5 F L 08/02/25 08:00 Pulse 91 H 08/02/25 12:00 Resp 14 08/02/25 12:00 BP 104/71 08/02/25 12:00 Pulse Ox 91 L 08/02/25 12:00 O2 Del Method Room Air 08/02/25 12:00 O2 Flow Rate 1 08/01/25 10:30 DS: Data Data Completed and Pending Labs on day of discharge: Labs from last 24 hours 08/02/25 08/02/25 08/01/25 11:27 05:00 21:38 Sodium 143 Potassium 3.7 Chloride 106 Carbon Dioxide 30.7 Anion Gap 10.0 BUN 30.0 H Creatinine 0.83 Est GFR ( Amer) >60 Est GFR (Non-Af Amer) >60 BUN/Creatinine Ratio 36.1 Glucose 123 H Calcium 9.1 NT-Pro-B Natriuret Pep 2544.0 H* POC Glucose 136 H 123 H 08/01/25 15:58 Sodium Potassium Chloride Carbon Dioxide Anion Gap BUN Creatinine Est GFR ( Amer) Est GFR (Non-Af Amer) BUN/Creatinine Ratio Glucose Calcium NT-Pro-B Natriuret Pep POC Glucose 232 H Discharge Plan Discharge Disposition: Home, Self-Care Discharge Medications: New levothyroxine [Synthroid] 125 mcg tablet 125 mcg PO DAILY Qty: 30 2RF losartan 50 mg tablet 50 mg PO DAILY Qty: 30 2RF Continued bupropion HCl 150 mg tablet sustained-release 12 hr 150 mg PO Q12H atorvastatin 10 mg tablet 10 mg PO DAILY metformin 1,000 mg tablet 1,000 mg PO BID diltiazem HCl 120 mg capsule,extended release 24hr 120 mg PO Q12H albuterol sulfate 90 mcg/actuation HFA aerosol inhaler 2 inh INHALATION Q6H PRN (Reason: shortness of breath or wheezing) Eliquis 5 mg tablet 5 mg PO BID allopurinol 300 mg Tablet 300 mg PO DAILY Qty: 30 11RF Changed metoprolol tartrate 100 mg Tablet 50 mg PO BID Qty: 0 0RF furosemide 20 mg tablet 20 mg PO BID Qty: 60 1RF spironolactone 50 mg tablet 25 mg PO .qd Qty: 0 0RF Discontinued liothyronine 5 mcg tablet 5 mcg PO BID levothyroxine 150 mcg tablet 150 mcg PO .[facility] Print Language: Belgian Activity Restrictions/Additional Instructions: I may not have addressed or treated all of your medical illnesses or the abnormal blood work or imaging studies during this hospitalization. Please ask your primary care provider to obtain [facility] records entirely to follow up on all of the abnormal physical, laboratory, and imaging findings that I have not addressed. Please return back to the emergency room or seek medical attention if your symptoms worsen or return. Discharging you from [facility] does not mean that your medical care ends here and now. You may still need additional monitoring, work up, investigation, and treatment plan to be handled from this point on by out patient providers including your primary care provider and specialists. For any medication question, please contact your retail pharmacist or your primary care provider. Please ask your primary care doctor to recheck your thyroid test TSH in 4 weeks and adjust your thyroid medication accordingly. Please ask your primary care doctor and heart doctor to adjust your heart and blood pressure medications to keep your blood pressure and heart rate under control. Discharge medications as listed are not final or set in stone. Primary care doctor and other out patient providers will need to titrate and adjust medications as soon as the first post discharge visit based on clinical progression, vitals signs, volume status and other related organs function. Thank you. Forms: Portal Instructions Follow Up Appointments: Audra Padgett. August 09, 2025 at 11:30 Dr. eboni Carter Product Marketing Manager [facility] [address] [facility] Aug 24 9:30am
== END 2025-08-03 15:36 | disposition home or self-care (01) | DRG 291 ==
LOC: ER 18:20 → MS 19:31
PROVIDERS: Admitting Provider Internal Medicine; Emergency Provider Emergency Medicine; PCP Family Medicine; Visit Provider Internal Medicine
DX: I11.0 Hypertensive heart disease with heart failure (principal); I50.33 Acute on chronic diastolic (congestive) heart failure; J96.01 Acute respiratory failure with hypoxia; J44.1 Chronic obstructive pulmonary disease with (acute) exacerbation; I48.20 Chronic atrial fibrillation, unspecified; I35.2 Nonrheumatic aortic (valve) stenosis with insufficiency; E03.9 Hypothyroidism, unspecified; D64.9 Anemia, unspecified; E11.9 Type 2 diabetes mellitus without complications; Z79.01 Long term (current) use of anticoagulants; Z79.84 Long term (current) use of oral hypoglycemic drugs; I25.2 Old myocardial infarction; Z95.5 Presence of coronary angioplasty implant and graft; I25.10 Atherosclerotic heart disease of native coronary artery without angina pectoris; Z87.440 Personal history of urinary (tract) infections; Z90.49 Acquired absence of other specified parts of digestive tract; Z79.899 Other long term (current) drug therapy
CPT/HCPCS: 36415; 71045; 80048; 80053; 80061; 82948; 83036; 83735; 83880; 84100; 84443; 84484; 85025; 93005; 93308; 94640; 94761; 96374; 96375; 99285; J1938; J2919; J3475